=== PATIENT | male | born 1940 | race Caucasian/White ===

== ENCOUNTER 2016-10-05 21:44 | Inpatient (IN) | payer OTHER ==
[~2016-10-05] VITALS: Ht 180.3 cm; Wt 86.2 kg
[2016-10-05] MEDS ORDERED: IPRATRPIUM/ALBUTEROL 0.5/2.5MG 3 ML NEBU. NEB ONE (22:15)
[2016-10-05 22:22] LABS: BASO # 0.1 x10^3/uL (0.0-0.2); BASO % 0 % (0-3); EOS % 3 % (0-3); HEMATOCRIT 40.7 % (39.0-53.0); HEMOGLOBIN 13.3 g/dL (13.0-17.5); LYMPH % 6 % (24-48); MEAN CORPUSCULAR HEMOGLOBIN 30 pg (25-35); MEAN CORPUSCULAR HGB CONC 33 g/dL (31-37); MEAN CORPUSCULAR VOLUME 93 fL (79-100); MONO % 12 % (0-9); NEUT % 78 % (31-73); PLATELET COUNT 195 x10^3/uL (140-400); RED CELL DISTRIBUTION WIDTH 14.1 % (11.5-14.5); WHITE BLOOD COUNT 16.3 x10^3/uL (4.0-11.0)
[2016-10-05 22:38] LABS: CALCIUM 8.9 mg/dL (8.5-10.1); CREATININE 0.7 mg/dL (0.7-1.3); GFR 109.9; POTASSIUM 4.2 mmol/L (3.5-5.1)
[2016-10-05 22:39] LABS: PCO2 ABG 46 mmHg (35-46); PH ABG 7.41 (7.35-7.45)
[2016-10-05 22:40] LABS: FIO2 ABG 60; HCO3 ABG 28 mmol/L (21-28); PO2 ABG 95 mmHg (65-108); SAT O2 ABG 97 % (92-99)
[2016-10-05 22:43] LABS: BILIRUBIN,URINE NEGATIVE (NEG); GLUCOSE,URINE NEGATIVE (NEG); NITRITE,URINE NEGATIVE (NEG); PH,URINE 7.5; PROTEIN,URINE NEGATIVE (NEG-TRACE)
[2016-10-05 22:44] LABS: ALBUMIN 2.4 g/dL (3.4-5.0); ALBUMIN/GLOBULIN RATIO 0.6 (1.0-1.7); TOTAL BILIRUBIN 0.7 mg/dL (0.2-1.0); TOTAL PROTEIN 6.6 g/dL (6.4-8.2)
[2016-10-05 22:47] LABS: RBC,URINE 20-40 /HPF (0-2); WBC,URINE TNTC /HPF (0-4)
[2016-10-05 22:48] LABS: BACTERIA,URINE MODERATE /HPF (0-FEW); YEAST,URINE PRESENT /HPF
[2016-10-05 22:51] LABS: % EOS 3 % (0-5); PLT ESTIMATE ADEQUATE (ADEQUATE); TOXIC GRANULATION SLIGHT
[2016-10-05] MEDS ORDERED: ONDANSETRON PF 4 MG/2 ML VIAL. IV PRN (23:00)
[2016-10-05] MEDS ORDERED: CEFTRIAXONE 1GM IVPB FOR OMNI 50 ML IV ONE (23:30)
[2016-10-06] MEDS ORDERED: VANCOMYCIN 2 GM in IV NORMAL SALINE 500ML BAG 500 ML IV ONE ×2
[2016-10-06 00:01] LABS: OBC FLU VALID
--- NOTE | 2016-10-06 00:22 | ACF ---
Admission Forms Criteria RESPIRATORY FAILURE [facility] Clinical Indications for Admission to Inpatient Care (Place 'X' for any and all applicable criteria): Hospital admission is needed for appropriate care of the patient because of acute respiratory failure or insufficiency as indicated by ANY ONE of the following(1)(2)(3)(4)(5)(6)(7)(8): [X]I. Mechanical ventilation needed (acute invasive or noninvasive) [ ]II. Severe ventilation deficit as indicated by ANY ONE of the following (9) [ ]a) Respiratory acidosis (pH less than 7.32 and partial pressure of carbon dioxide greater than 40 mm Hg (5.3 kPa)) [ ]b) Partial pressure of carbon dioxide greater than 44 mm Hg (5.9 kPa ) (new) [ ]c) Airflow measurements less than 25% of predicted (eg, peak expiratory flow rate less than 100 L/minute) [ ]d) Forced vital capacity less than 15 mL/kg of ideal body weight, or 50% decrease in vital capacity from baseline [ ]III. Noncardiac pulmonary edema not resolving with rapid emergency treatment (8) [ ]IV. Severe respiratory distress as indicated by ANY ONE of the following: [ ]a) Severe tachypnea (respiratory rate greater than 30, greater than 45 for 6-month-old, greater than 60 for ) [ ]b) Severe hypoxemia (partial pressure of oxygen less than 50 mm Hg ( 6.7 kPa) on greater than 50% oxygen or partial pressure of oxygen to FIO2 ratio less than 200) [ ]c) Mental status deterioration from respiratory disease [ ]V. Airway obstruction or inadequate protection [A](10)(11) The original [employer] content created by [employer] has been revised. The portions of the content which have been revised are identified through the use of italic text or in bold, and [employer] has neither reviewed nor approved the modified material. All other unmodified content is copyright [employer]. Please see references footnoted in the original [employer] edition 2016 Admission Criteria Met?: Yes EDGARDO JIM Oct 06, 2016 00:22
--- NOTE | 2016-10-06 00:39 | PHYS DOC ---
Past Medical History Past Medical History: CAD, CHF, High Cholesterol, Heart Disease, Hypertension, Lung Disease, Pneumonia, Other Additional Past Medical Histor: WEAKNESS, COGNITIVE COMMUNICATION DEFICIT Past Surgical History: Other Additional Past Surgical Histo: PEG TUBE Alcohol Use: None Drug Use: None Adult General Chief Complaint Chief Complaint: ALTERED MENTAL STATUS HPI HPI 76-year-old male presents with some altered mental status and difficulty breathing that his assisted living facility. Patient is apparently being treated for an ongoing pneumonia and has had several falls over the weekend. Daily today he became short of air satting in the 80s on room air per EMS. EMS put the patient on a nonrebreather with improvement of his oxygen saturations to the upper 90s. Upon arrival patient is slightly tachypneic in mild distress. He is unable to provide any adequate history. Patient apparently is normally verbal and alert and oriented x 2. Review of Systems Review of Systems 10 point review of systems is unable to be obtained secondary to the patient's underlying mental status Current Medications Current Medications Current Medications Medications (Trade) Dose Ordered Sig/Asael Start Time Stop Time Status Last Admin Dose Admin Albuterol/ Ipratropium (Duoneb) 3 ml 1X ONCE 10/05/16 22:15 10/05/16 22:50 DC 10/05/16 22:21 3 ML Ondansetron HCl 4 mg 4 mg PRN Q8HRS PRN 10/05/16 23:00 10/06/16 22:59 Sodium Chloride (Iv Sodium Chloride 0.9% 1000ml Bag) 1,000 ml @ 100 mls/hr Q10H 10/05/16 22:59 10/06/16 22:58 10/06/16 01:04 100 MLS/HR Vancomycin HCl (Vanco Per Pharmacy) 1 each PRN DAILY PRN 10/05/16 23:00 10/06/16 02:11 1 EACH Allergies Allergies Allergies Coded Allergies Type Severity Reaction Last Updated Verified allopurinol Allergy Intermediate 10/05/16 Yes colchicine Allergy Intermediate 10/05/16 Yes Physical Exam Physical Exam Constitutional: Well developed, well nourished, no acute distress, non-toxic appearance. [] HENT: Normocephalic, atraumatic, bilateral external ears normal, oropharynx moist, no oral exudates, nose normal. [] Eyes: PERRLA, EOMI, conjunctiva normal, no discharge. [] Neck: Normal range of motion, no tenderness, supple, no stridor. [] Cardiovascular:Heart rate regular rhythm, no murmur [] Lungs & Thorax: Bilateral breath sounds clear to auscultation [] Abdomen: Bowel sounds normal, soft, no tenderness, no masses, no pulsatile masses. [] Skin: Warm, dry, no erythema, no rash. [] Back: No tenderness, no CVA tenderness. [] Extremities: No tenderness, no cyanosis, no clubbing, ROM intact, no edema. [] Neurologic: Alert and oriented X 3, normal motor function, normal sensory function, no focal deficits noted. [] Psychologic: Affect normal, judgement normal, mood normal. [] Current Patient Data Vital Signs Vital Signs Date Time Temp Pulse Resp B/P Pulse Ox O2 Delivery O2 Flow Rate FiO2 10/05/16 22:50 19 136/68 97 BiPAP/CPAP 10/05/16 22:35 88 10/05/16 21:50 99.5 15 99.5 Lab Values Laboratory Tests Test 10/05/16 22:08 10/05/16 22:30 White Blood Count 16.3x10^3/uL (4.0-11.0) H Red Blood Count 4.40x10^6/uL (4.30-5.70) Hemoglobin 13.3g/dL (13.0-17.5) Hematocrit 40.7% (39.0-53.0) Mean Corpuscular Volume 93fL (79-100) Mean Corpuscular Hemoglobin 30pg (25-35) Mean Corpuscular Hemoglobin Concent 33g/dL (31-37) Red Cell Distribution Width 14.1% (11.5-14.5) Platelet Count 195x10^3/uL (140-400) Neutrophils (%) (Auto) 78% (31-73) H Lymphocytes (%) (Auto) 6% (24-48) L Monocytes (%) (Auto) 12% (0-9) H Eosinophils (%) (Auto) 3% (0-3) Basophils (%) (Auto) 0% (0-3) Neutrophils # (Auto) 12.7x10^3uL (1.8-7.7) H Lymphocytes # (Auto) 1.0x10^3/uL (1.0-4.8) Monocytes # (Auto) 2.0x10^3/uL (0.0-1.1) H Eosinophils # (Auto) 0.5x10^3/uL (0.0-0.7) Basophils # (Auto) 0.1x10^3/uL (0.0-0.2) Segmented Neutrophils % 69% (35-66) H Band Neutrophils % 6% (0-9) Lymphocytes % 6% (24-48) L Monocytes % 16% (0-10) H Eosinophils % 3% (0-5) Toxic Granulation Slight Platelet Estimate Adequate (ADEQUATE) Sodium Level 133mmol/L (136-145) L Potassium Level 4.2mmol/L (3.5-5.1) Chloride Level 93mmol/L (98-107) L Carbon Dioxide Level 35mmol/L (21-32) H Anion Gap 5 (6-14) L Blood Urea Nitrogen 12mg/dL (8-26) Creatinine 0.7mg/dL (0.7-1.3) Estimated GFR (Cockcroft-Gault) 109.9 BUN/Creatinine Ratio 17 (6-20) Glucose Level 108mg/dL (70-99) H Lactic Acid Level 0.8mmol/L (0.4-2.0) Calcium Level 8.9mg/dL (8.5-10.1) Total Bilirubin 0.7mg/dL (0.2-1.0) Aspartate Amino Transferase (AST) 27U/L (15-37) Alanine Aminotransferase (ALT) 20U/L (16-63) Alkaline Phosphatase 70U/L (46-116) Troponin I Quantitative < 0.015ng/mL (0.000-0.055) Total Protein 6.6g/dL (6.4-8.2) Albumin 2.4g/dL (3.4-5.0) L Albumin/Globulin Ratio 0.6 (1.0-1.7) L Urine Collection Type Unknown Urine Color Yellow Urine Clarity Cloudy Urine pH 7.5 Urine Specific [place] 1.015 Urine Protein Negativemg/dL (NEG-TRACE) Urine Glucose (UA) Negativemg/dL (NEG) Urine Ketones (Stick) Negativemg/dL (NEG) Urine Blood Moderate (NEG) Urine Nitrite Negative (NEG) Urine Bilirubin Negative (NEG) Urine Urobilinogen Dipstick 1.0mg/dL (0.2 mg/dL) Urine Leukocyte Esterase Moderate (NEG) Urine RBC 20-40/HPF (0-2) Urine WBC Tntc/HPF (0-4) Urine Squamous Epithelial Cells None/LPF Urine Amorphous Sediment Present/HPF Urine Bacteria Moderate/HPF (0-FEW) Urine Mucus Mod/LPF Urine Yeast Present/HPF O2 Saturation 97% (92-99) Arterial Blood pH 7.41 (7.35-7.45) Arterial Blood pCO2 at Patient Temp 46mmHg (35-46) Arterial Blood pO2 at Patient Temp 95mmHg (65-108) Arterial Blood HCO3 28mmol/L (21-28) Arterial Blood Base Excess 3mmol/L (-3-3) FiO2 60 Laboratory Tests 10/05/16 22:08 Laboratory Tests 10/05/16 22:08 EKG EKG EKG as interpreted by me shows a sinus tachycardia with a rate of 101 bpm. There are occasional PVCs but no acute ischemic findings are seen. Radiology/Procedures Radiology/Procedures Portable one view of the chest demonstrates left sided effusion and infiltrate with no obvious costophrenic angle on the left. This is c/w with ongoing pneumonia. Course & Med Decision Making Course & Med Decision Making Pertinent Labs and Imaging studies reviewed. (See chart for details) 76-year-old male with some altered mental status and blood work that shows an elevated white count but a normal ABG has a chest film that demonstrates a left- sided pneumonia which would be hospital acquired. For this, doses of Rocephin, Levaquin, Vancomycin were given. Cultures and lactate were obtained prior to antibiotic administration. A urinalysis does demonstrate signs of infection as well. Patient was placed on BiPAP therapy immediately upon arrival and will be continued on BiPAP on the medical floor. I discussed the need to admit the patient with the hospitalist, Dr. Neville, who agreed to accept the patient for further evaluation and treatment for HCAP and AMS. Dragon Disclaimer Dragon Disclaimer This electronic medical record was generated, in whole or in part, using a voice recognition dictation system. Departure Departure Impression: Primary Impression: Hospital acquired PNA Additional Impression: Altered mental status Disposition: 09 ADMITTED INPATIENT Admitting Physician: Jose Neville Condition: STABLE Referrals: SANDRITA RING MD (PCP) Problem Qualifiers MICHELLE LICEA DO Oct 06, 2016 00:39
[2016-10-06] MEDS: IV NORMAL SALINE 1000ML BAG 1,000 ML IV SCH ×3 (01:04→18:59)
[2016-10-06] MEDS: VANCOMYCIN PER PHARMACY MC PRN ×2 (02:11→15:20)
[2016-10-06 02:19] VITALS: BP 117/65
[2016-10-06] MEDS ORDERED: OXYC10TA PO (02:32)
[2016-10-06] MEDS ORDERED: TRAZ50TA15 PO (02:32)
[2016-10-06] MEDS ORDERED: ASPI-482 PO (02:32)
[2016-10-06] MEDS ORDERED: GUAI600T38 PO (02:32)
[2016-10-06] MEDS ORDERED: MAGN400O4 PO (02:32)
[2016-10-06] MEDS ORDERED: SIMV20TA3 PO (02:32)
[2016-10-06] MEDS ORDERED: FURO40TA4 PO (02:32)
[2016-10-06] MEDS ORDERED: CARB15DR3 EACHEYE (02:32)
[2016-10-06] MEDS ORDERED: MELO-156 PO (02:32)
[2016-10-06] MEDS ORDERED: HYPR15DR5 OP (02:32)
[2016-10-06] MEDS ORDERED: TAMS0.4C2 PO (02:32)
[2016-10-06] MEDS ORDERED: VIT1TABL32 PO (02:32)
[2016-10-06] MEDS ORDERED: BISA10SU55 RC (02:32)
[2016-10-06] MEDS ORDERED: POTA20LI PEG (02:32)
[2016-10-06 04:20] LABS: BASO # 0.1 x10^3/uL (0.0-0.2); BASO % 0 % (0-3); EOS % 2 % (0-3); HEMATOCRIT 36.1 % (39.0-53.0); HEMOGLOBIN 11.9 g/dL (13.0-17.5); LYMPH # 0.9 x10^3/uL (1.0-4.8); LYMPH % 5 % (24-48); MEAN CORPUSCULAR HEMOGLOBIN 30 pg (25-35); MEAN CORPUSCULAR HGB CONC 33 g/dL (31-37); MEAN CORPUSCULAR VOLUME 91 fL (79-100); MONO % 13 % (0-9); NEUT % 80 % (31-73); PLATELET COUNT 175 x10^3/uL (140-400); RED BLOOD COUNT 3.95 x10^6/uL (4.30-5.70); RED CELL DISTRIBUTION WIDTH 14.4 % (11.5-14.5); WHITE BLOOD COUNT 17.5 x10^3/uL (4.0-11.0)
[2016-10-06 04:36] LABS: CALCIUM 8.5 mg/dL (8.5-10.1); CREATININE 0.6 mg/dL (0.7-1.3); GFR 131.3; POTASSIUM 4.1 mmol/L (3.5-5.1)
--- NOTE | 2016-10-06 06:31 | EKG ---
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
[2016-10-06 07:30] VITALS: BP 111/55
[2016-10-06] MEDS: IPRATRPIUM/ALBUTEROL 0.5/2.5MG 3 ML NEBU. NEB SCH ×4 (07:42→19:53)
--- NOTE | 2016-10-06 07:49 | RAD ---
EXAM: Chest one view. HISTORY: Pneumonia. COMPARISON: None. FINDINGS: A frontal view of the chest is obtained. There are changes of coronary artery bypass grafting. Consolidation in the left base is consistent with pneumonia. Mild opacities in the right base most likely indicate atelectasis. The inspiration is small. A small left pleural effusion cannot be excluded. There is no pneumothorax. The heart is mildly enlarged. There is bilateral rotator cuff arthropathy. A gastrostomy catheter may be partially visualized at the inferior margin of the field of view. IMPRESSION: 1. Left basilar pneumonia. Possible small left pleural effusion. Follow-up to resolution is recommended. 2. Mild cardiomegaly.
[2016-10-06] MEDS ORDERED: PIP/TAZO PER PHARMACY MC PRN (10:15)
[2016-10-06] MEDS ORDERED: BISACODYL 10 MG SUPP.RECT RC PRN (10:15)
[2016-10-06 10:35] VITALS: BP 117/44
[2016-10-06] MEDS ORDERED: PIPERACILLIN/TAZOBACTAM 3.375 GM in IV NORMAL SALINE 50ML 50 ML IV SCH (11:00)
[2016-10-06] MEDS ORDERED: ASPIRIN ENTERIC COATED 81 MG TABLET.DR. PO SCH (11:30)
[2016-10-06] MEDS: TAMSULOSIN 0.4 MG CAP.ER.24H. PO SCH (11:30)
[2016-10-06] MEDS ORDERED: GUAIFENESIN ER 600 MG TABLET.ER PO SCH (11:30)
[2016-10-06] MEDS: GUAIFENESIN 200 MG/10 ML LIQUID. PO SCH ×4 (11:31→21:06)
[2016-10-06] MEDS: MULTIVITAMIN EYE FORMULA CAPSULE. PO SCH (11:32)
[2016-10-06] MEDS: FUROSEMIDE 40 MG TABLET PO SCH (11:33)
[2016-10-06] MEDS: POTASSIUM CHLORIDE 20 MEQ/15 ML ORAL LIQUID. PEG SCH (11:36)
[2016-10-06] MEDS: ASPIRIN 81 MG TAB.CHEW PO SCH (11:43)
--- NOTE | 2016-10-06 11:44 | PDOC ---
Provider Note Provider Note dictated MARÍA LUNA MD Oct 06, 2016 11:43
[2016-10-06] MEDS ORDERED: FUROSEMIDE 40 MG/4 ML VIAL IVP ONE (12:00)
--- NOTE | 2016-10-06 12:08 | PDOC1 ---
History and Physical Date of Admission Date of Admission 10/05/16 Identification/Chief Complaint Chief Complaint desat Problems: Source Source: Caregiver, Chart review History of Present Illness History of Present Illness HPI HPI 76-year-old male presents with some altered mental status and difficulty breathing [facility]. i talked to his granddaughter for a long time, who lives with him and DPOA. pT WAS independent 2 months ago, [facility] , not better, then [place], for AMS, PNA, did LP, MRI brain, CT, EEG, but was told all neg. THen dced to resort last Wednesday. Pt could be agitated about his new sinclair ( denies urinary difficulty tho) and got haldol, also takes pain meds for "energy". He could be lethargic and sleeping for 2-3 days and then woke up talking close to normal baseline as per the grand daughter. Pt was found desat to 80s last night on RA, but she denies more cough or sob or fever in the past week. Has PEG since refuse to eat. pt is on bipap overnight, vitals ok, but not responding to me at all (rubbing his chest or calling his name). Past Medical History Past Medical History : CAD, CHF, High Cholesterol, Heart Disease, Hypertension, Lung Disease, Pneumonia, Other Additional Past Medical Histor: WEAKNESS, COGNITIVE COMMUNICATION DEFICIT Past Surgical History Past Surgical History PEG, cabg Family History Family History: Cancer Social History Smoke: Quit ALCOHOL: social Drugs: None Current Problem List Problem List Problems Medical Problems: (1) Altered mental status Status: Acute (2) Hospital acquired PNA Status: Acute Current Medications Current Medications Current Medications Medications (Trade) Dose Ordered Sig/Asael Start Time Stop Time Status Last Admin Dose Admin Albuterol/ Ipratropium (Duoneb) 3 ml 1X ONCE 10/05/16 22:15 10/05/16 22:50 DC 10/05/16 22:21 3 ML Albuterol/ Ipratropium 3 ml 3 ml RTQID 10/06/16 08:00 10/07/16 07:59 10/06/16 07:42 3 ML Artificial Tears (Artificial Tears) 1 drop PRN BID PRN 10/06/16 10:30 Aspirin (Children'S Aspirin) 81 mg [id number] 3/7/17 11:30 10/06/16 11:43 81 MG Aspirin (Ecotrin) 81 mg DAILY 10/06/16 11:30 10/06/16 11:30 DC Bisacodyl (Dulcolax Supp) 10 mg PRN DAILY PRN 10/06/16 10:15 Ceftriaxone Sodium 1 gm/ Sodium Chloride 50 ml @ 100 mls/hr Q24H 10/06/16 22:00 10/06/16 22:00 DC Ceftriaxone Sodium 50 ml @ 100 mls/hr 1X ONCE 10/05/16 23:30 10/05/16 23:59 DC 10/06/16 01:05 100 MLS/HR Furosemide (Lasix) 40 mg 1X ONCE 10/06/16 12:00 10/06/16 12:01 DC Guaifenesin (Mucinex) 600 mg BID 10/06/16 11:30 10/06/16 11:30 DC Guaifenesin (Robitussin) 200 mg QID 10/06/16 11:30 10/06/16 11:31 200 MG Levofloxacin/ Dextrose 150 ml @ 100 mls/hr 1X ONCE 10/05/16 23:30 10/06/16 00:59 DC 10/06/16 01:05 100 MLS/HR Multivitamins/ Minerals (Ocuvite Lutein) 1 cap DAILY 10/06/16 11:00 10/06/16 11:32 1 CAP Ondansetron HCl 4 mg 4 mg PRN Q8HRS PRN 10/05/16 23:00 10/06/16 22:59 Piperacillin Sod/ Tazobactam Sod (Zosyn Per Pharmacy) 1 each PRN DAILY PRN 10/06/16 10:15 Piperacillin Sod/ Tazobactam Sod/ Sodium Chloride (Zosyn/Iv Sodium Chloride 0.9% 50ml) 50 ml @ 100 mls/hr Q6HRS 10/06/16 11:00 10/06/16 11:56 100 MLS/HR Potassium Chloride (KCl Oral Soln) 10 meq DAILY 10/06/16 11:30 10/06/16 11:36 10 MEQ Simvastatin (Zocor) 20 mg QHS 10/06/16 21:00 Sodium Chloride (Iv Sodium Chloride 0.9% 1000ml Bag) 1,000 ml @ 100 mls/hr Q10H 10/05/16 22:59 10/06/16 22:58 10/06/16 01:04 100 MLS/HR Tamsulosin HCl (Flomax) 0.4 mg DAILY 10/06/16 11:30 Vancomycin HCl 1 each 1 each 1X ONCE 10/07/16 11:30 10/07/16 11:31 Vancomycin HCl 2 gm/Sodium Chloride 500 ml @ 250 mls/hr 1X ONCE 10/06/16 00:00 10/06/16 01:59 DC 10/05/16 23:26 250 MLS/HR Vancomycin HCl/ Sodium Chloride (Iv Sodium Chloride 0.9% 250ml) 250 ml @ 167 mls/hr Q12H 10/06/16 12:00 Allergies Allergies Allergies Coded Allergies Type Severity Reaction Last Updated Verified allopurinol Allergy Intermediate 10/05/16 Yes colchicine Allergy Intermediate 10/05/16 Yes ROS Review of System CONSTITUTIONAL: No fever or chills EYES: No recent changes SKIN: No rash or itching CARDIOVASCULAR: No chest pain, syncope, palpitations, or edema RESPIRATORY: No SOB or cough GASTROINTESTINAL: No nausea, vomiting or abdominal pain NEUROLOGICAL: No headaches or weakness ENDOCRINE: No cold or heat intolerance GENITOURINARY: No urgency or frequency of urination MUSCULOSKELETAL: No back pain or joint pain LYMPHATICS: No enlarged lymph nodes PSYCHIATRIC: No anxiety or depression Physical Exam Physical Exam GEN.: on bipap, not responding at all HEENT: Head is normocephalic, atraumatic NECK: Supple. LUNGS: bl diminished bs. HEART: RRR, S1, S2 present. Peripheral pulses intact ABDOMEN: Soft, nontender. Positive bowel sounds. EXTREMITIES: Without any cyanosis. NEUROLOGIC: Normal speech, normal tone PSYCHIATRIC: Normal affect, normal mood. SKIN: No ulcerations Vitals Vitals Vital Signs Date Time Temp Pulse Resp B/P Pulse Ox O2 Delivery O2 Flow Rate FiO2 10/06/16 10:35 96.6 89 18 117/44 95 BiPAP/CPAP 96.6 10/06/16 08:00 15.0 Labs Labs Laboratory Tests Test 10/05/16 22:08 10/05/16 22:30 10/05/16 23:28 10/06/16 03:00 White Blood Count 16.3x10^3/uL (4.0-11.0) 17.5x10^3/uL (4.0-11.0) Red Blood Count 4.40x10^6/uL (4.30-5.70) 3.95x10^6/uL (4.30-5.70) Hemoglobin 13.3g/dL (13.0-17.5) 11.9g/dL (13.0-17.5) Hematocrit 40.7% (39.0-53.0) 36.1% (39.0-53.0) Mean Corpuscular Volume 93fL (79-100) 91fL (79-100) Mean Corpuscular Hemoglobin 30pg (25-35) 30pg (25-35) Mean Corpuscular Hemoglobin Concent 33g/dL (31-37) 33g/dL (31-37) Red Cell Distribution Width 14.1% (11.5-14.5) 14.4% (11.5-14.5) Platelet Count 195x10^3/uL (140-400) 175x10^3/uL (140-400) Neutrophils (%) (Auto) 78% (31-73) 80% (31-73) Lymphocytes (%) (Auto) 6% (24-48) 5% (24-48) Monocytes (%) (Auto) 12% (0-9) 13% (0-9) Eosinophils (%) (Auto) 3% (0-3) 2% (0-3) Basophils (%) (Auto) 0% (0-3) 0% (0-3) Neutrophils # (Auto) 12.7x10^3uL (1.8-7.7) 13.9x10^3uL (1.8-7.7) Lymphocytes # (Auto) 1.0x10^3/uL (1.0-4.8) 0.9x10^3/uL (1.0-4.8) Monocytes # (Auto) 2.0x10^3/uL (0.0-1.1) 2.2x10^3/uL (0.0-1.1) Eosinophils # (Auto) 0.5x10^3/uL (0.0-0.7) 0.4x10^3/uL (0.0-0.7) Basophils # (Auto) 0.1x10^3/uL (0.0-0.2) 0.1x10^3/uL (0.0-0.2) Segmented Neutrophils % 69% (35-66) Band Neutrophils % 6% (0-9) Lymphocytes % 6% (24-48) Monocytes % 16% (0-10) Eosinophils % 3% (0-5) Toxic Granulation Slight Platelet Estimate Adequate (ADEQUATE) Sodium Level 133mmol/L (136-145) 131mmol/L (136-145) Potassium Level 4.2mmol/L (3.5-5.1) 4.1mmol/L (3.5-5.1) Chloride Level 93mmol/L (98-107) 95mmol/L (98-107) Carbon Dioxide Level 35mmol/L (21-32) 34mmol/L (21-32) Anion Gap 5 (6-14) 2 (6-14) Blood Urea Nitrogen 12mg/dL (8-26) 12mg/dL (8-26) Creatinine 0.7mg/dL (0.7-1.3) 0.6mg/dL (0.7-1.3) Estimated GFR (Cockcroft-Gault) 109.9 131.3 BUN/Creatinine Ratio 17 (6-20) Glucose Level 108mg/dL (70-99) 102mg/dL (70-99) Lactic Acid Level 0.8mmol/L (0.4-2.0) Calcium Level 8.9mg/dL (8.5-10.1) 8.5mg/dL (8.5-10.1) Total Bilirubin 0.7mg/dL (0.2-1.0) Aspartate Amino Transf (AST/SGOT) 27U/L (15-37) Alanine Aminotransferase (ALT/SGPT) 20U/L (16-63) Alkaline Phosphatase 70U/L (46-116) Troponin I Quantitative < 0.015ng/mL (0.000-0.055) Total Protein 6.6g/dL (6.4-8.2) Albumin 2.4g/dL (3.4-5.0) Albumin/Globulin Ratio 0.6 (1.0-1.7) Urine Collection Type Unknown Urine Color Yellow Urine Clarity Cloudy Urine pH 7.5 Urine Specific [place] 1.015 Urine Protein Negativemg/dL (NEG-TRACE) Urine Glucose (UA) Negativemg/dL (NEG) Urine Ketones (Stick) Negativemg/dL (NEG) Urine Blood Moderate (NEG) Urine Nitrite Negative (NEG) Urine Bilirubin Negative (NEG) Urine Urobilinogen Dipstick 1.0mg/dL (0.2 mg/dL) Urine Leukocyte Esterase Moderate (NEG) Urine RBC 20-40/HPF (0-2) Urine WBC Tntc/HPF (0-4) Urine Squamous Epithelial Cells None/LPF Urine Amorphous Sediment Present/HPF Urine Bacteria Moderate/HPF (0-FEW) Urine Mucus Mod/LPF Urine Yeast Present/HPF O2 Saturation 97% (92-99) Arterial Blood pH 7.41 (7.35-7.45) Arterial Blood pCO2 at Patient Temp 46mmHg (35-46) Arterial Blood pO2 at Patient Temp 95mmHg (65-108) Arterial Blood HCO3 28mmol/L (21-28) Arterial Blood Base Excess 3mmol/L (-3-3) FiO2 60 Influenza Type A Antigen Negative (NEGATIVE) Influenza Type B Antigen Negative (NEGATIVE) Laboratory Tests Test 10/05/16 22:08 10/05/16 22:30 10/05/16 23:28 10/06/16 03:00 White Blood Count 16.3x10^3/uL (4.0-11.0) 17.5x10^3/uL (4.0-11.0) Red Blood Count 4.40x10^6/uL (4.30-5.70) 3.95x10^6/uL (4.30-5.70) Hemoglobin 13.3g/dL (13.0-17.5) 11.9g/dL (13.0-17.5) Hematocrit 40.7% (39.0-53.0) 36.1% (39.0-53.0) Mean Corpuscular Volume 93fL (79-100) 91fL (79-100) Mean Corpuscular Hemoglobin 30pg (25-35) 30pg (25-35) Mean Corpuscular Hemoglobin Concent 33g/dL (31-37) 33g/dL (31-37) Red Cell Distribution Width 14.1% (11.5-14.5) 14.4% (11.5-14.5) Platelet Count 195x10^3/uL (140-400) 175x10^3/uL (140-400) Neutrophils (%) (Auto) 78% (31-73) 80% (31-73) Lymphocytes (%) (Auto) 6% (24-48) 5% (24-48) Monocytes (%) (Auto) 12% (0-9) 13% (0-9) Eosinophils (%) (Auto) 3% (0-3) 2% (0-3) Basophils (%) (Auto) 0% (0-3) 0% (0-3) Neutrophils # (Auto) 12.7x10^3uL (1.8-7.7) 13.9x10^3uL (1.8-7.7) Lymphocytes # (Auto) 1.0x10^3/uL (1.0-4.8) 0.9x10^3/uL (1.0-4.8) Monocytes # (Auto) 2.0x10^3/uL (0.0-1.1) 2.2x10^3/uL (0.0-1.1) Eosinophils # (Auto) 0.5x10^3/uL (0.0-0.7) 0.4x10^3/uL (0.0-0.7) Basophils # (Auto) 0.1x10^3/uL (0.0-0.2) 0.1x10^3/uL (0.0-0.2) Segmented Neutrophils % 69% (35-66) Band Neutrophils % 6% (0-9) Lymphocytes % 6% (24-48) Monocytes % 16% (0-10) Eosinophils % 3% (0-5) Toxic Granulation Slight Platelet Estimate Adequate (ADEQUATE) Sodium Level 133mmol/L (136-145) 131mmol/L (136-145) Potassium Level 4.2mmol/L (3.5-5.1) 4.1mmol/L (3.5-5.1) Chloride Level 93mmol/L (98-107) 95mmol/L (98-107) Carbon Dioxide Level 35mmol/L (21-32) 34mmol/L (21-32) Anion Gap 5 (6-14) 2 (6-14) Blood Urea Nitrogen 12mg/dL (8-26) 12mg/dL (8-26) Creatinine 0.7mg/dL (0.7-1.3) 0.6mg/dL (0.7-1.3) Estimated GFR (Cockcroft-Gault) 109.9 131.3 BUN/Creatinine Ratio 17 (6-20) Glucose Level 108mg/dL (70-99) 102mg/dL (70-99) Lactic Acid Level 0.8mmol/L (0.4-2.0) Calcium Level 8.9mg/dL (8.5-10.1) 8.5mg/dL (8.5-10.1) Total Bilirubin 0.7mg/dL (0.2-1.0) Aspartate Amino Transf (AST/SGOT) 27U/L (15-37) Alanine Aminotransferase (ALT/SGPT) 20U/L (16-63) Alkaline Phosphatase 70U/L (46-116) Troponin I Quantitative < 0.015ng/mL (0.000-0.055) Total Protein 6.6g/dL (6.4-8.2) Albumin 2.4g/dL (3.4-5.0) Albumin/Globulin Ratio 0.6 (1.0-1.7) Urine Collection Type Unknown Urine Color Yellow Urine Clarity Cloudy Urine pH 7.5 Urine Specific [place] 1.015 Urine Protein Negativemg/dL (NEG-TRACE) Urine Glucose (UA) Negativemg/dL (NEG) Urine Ketones (Stick) Negativemg/dL (NEG) Urine Blood Moderate (NEG) Urine Nitrite Negative (NEG) Urine Bilirubin Negative (NEG) Urine Urobilinogen Dipstick 1.0mg/dL (0.2 mg/dL) Urine Leukocyte Esterase Moderate (NEG) Urine RBC 20-40/HPF (0-2) Urine WBC Tntc/HPF (0-4) Urine Squamous Epithelial Cells None/LPF Urine Amorphous Sediment Present/HPF Urine Bacteria Moderate/HPF (0-FEW) Urine Mucus Mod/LPF Urine Yeast Present/HPF O2 Saturation 97% (92-99) Arterial Blood pH 7.41 (7.35-7.45) Arterial Blood pCO2 at Patient Temp 46mmHg (35-46) Arterial Blood pO2 at Patient Temp 95mmHg (65-108) Arterial Blood HCO3 28mmol/L (21-28) Arterial Blood Base Excess 3mmol/L (-3-3) FiO2 60 Influenza Type A Antigen Negative (NEGATIVE) Influenza Type B Antigen Negative (NEGATIVE) VTE Prophylaxis Ordered VTE Prophylaxis Devices: Yes VTE Pharmacological Prophylaxi: Yes Assessment/Plan Assessment/Plan 1. AMS, metabolic encephalopathy likely , 2/2 to 2 or sedative meds in rehab 2. acute resp failure with hypoxia, 2/2 HCAP? 3. sepsis with HCAP? 4. h/o CAD with CABG 5. CHF, ef 50% . 6 htn 7. hld 8 BPH sinclair 9. dysphasia with PEG 10. 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 recent hallucination plan: given pt was recently in another hosp for 3 weeks, will try to get records pulm, neuro, card consult 2. cont vanco, add zosyn for now 3. lasix iv x1 as per pulm cont home po lasix 4. hold trazodone, opoids for now taper bipap resume PEG feeding dvt ppx ptot labs tmr EDWARDO AMES MD Oct 06, 2016 12:07
[2016-10-06] MEDS ORDERED: ONDANSETRON PF 4 MG/2 ML VIAL. IV PRN (12:15)
--- NOTE | 2016-10-06 12:42 | CONS ---
DATE OF CONSULTATION: ATTENDING PHYSICIAN: Dr. Neville. REASON FOR CONSULTATION: Respiratory failure, possible pneumonia. HISTORY OF PRESENT ILLNESS: The patient is a 76-year-old male who has been at [facility] for a recent prolonged hospitalization. He was prior to that, he was at the [facility]. The patient has a history of coronary artery disease, hyperlipidemia, and abdominal aortic aneurysm. He has only minimal history of tobacco use. He quit 40 years ago. His granddaughter was at the bedside who gave much of the history. She says that he was treated with three broad spectrum antibiotics for pneumonia at [facility]. He was then transferred to [facility]. The patient's granddaughter said that they took his pulse ox on the right hand, which normally does not give a good signal and it was in the 80s; however, when they checked it on the left hand pulse ox showed 96% saturation. However, he was sent to [facility] for dyspnea and hypoxia. He was placed initially on nonrebreather mask with saturations in the upper 90s. His arterial blood gases obtained and was reviewed by me and it was obtained on 60% FiO2. It showed a pH of 7.41, pCO2 of 46 and a pO2 of 95. Currently, he is arousable to commands, but he is otherwise sleepy. His influenza screen was negative. I have reviewed the patient's chest x-ray, there was no old x-ray available for comparison. He has a left basilar volume loss, which could be related to pneumonia versus a possible left effusion. He has mild cardiomegaly. The granddaughter states that he had an echo recently at [facility] and was told that ____ much better than before. I do not have the details of which are available. PAST MEDICAL HISTORY: History of CAD, history of CHF, could be diastolic. Dyslipidemia, heart disease, hypertension, history of pneumonia. History of cognitive impairment. PAST SURGICAL HISTORY: PEG tube placement. ALLERGIES: ALLOPURINOL AND COLCHICINE. MEDICATIONS: Upon transfer were all reviewed including broad-spectrum antibiotic, vancomycin and Zosyn. REVIEW OF SYSTEMS: Unable to obtain from the patient. SOCIAL HISTORY: Quit tobacco 40 years ago. PHYSICAL EXAMINATION: VITAL SIGNS: His blood pressure 117/44, pulse ox 94-98% on 60% BiPAP. Afebrile. HEENT: Sclerae nonicteric. NECK: Supple. LUNGS: Diminished breath sounds. CARDIOVASCULAR: Regular rate. ABDOMEN: Soft and PEG in place. EXTREMITIES: With bilateral pitting edema. LABORATORY DATA: Reviewed. His white cell count 17.5, hemoglobin 11.9 and platelets are 175. BUN is 12, creatinine 0.6. Sodium 133. IMPRESSION: 1. Acute hypoxic respiratory failure, I suspect related to left basilar pneumonia; however, I cannot exclude the component of diastolic heart failure. The patient's granddaughter had said that he has had prolonged broad spectrum antibiotic course while at [facility]. I do not have old x-ray available for comparison. Normally, he does not use his oxygen. 2. Questionable mild chronic obstructive pulmonary disease. 3. Mild hyponatremia. Could be dilutional. 4. Abnormal chest x-ray with mild cardiomegaly and volume loss, left lower lobe. Possible left lower lobe pneumonia, cannot exclude the possibility of a small effusion related to mild congestive heart failure. 5. History of coronary artery disease. 6. History of chronic percutaneous endoscopic gastrostomy tube. He uses enteral nutrition as well as oral nutrition. According to daughter, he is a picky eater, so he does not meet his nutritional needs by oral intake only. RECOMMENDATIONS: 1. We will gradually wean the FiO2. 2. We will give one dose of IV Lasix. 3. Continue broad-spectrum antibiotics. 4. Follow chest x-ray. 5. Nebulizer treatments as scheduled. 6. We will obtain echo report from [facility]. 7. Discussed with the patient's granddaughter at the bedside and we will follow along with you. 8. d/w Dr Neville MARÍA LUNA MD DR: NICOLETTE/fabio JOB#: [id number] / [id number] Bony Garcia
--- NOTE | 2016-10-06 12:51 | PDOC2 ---
CARDIAC CONSULT DATE OF CONSULT Date of Consult DATE: 10/06/16 TIME: 12:48 REASON FOR CONSULT Reason for Consult: History of CHF REFERRING PHYSICIAN Referring Physician: Dr. Neville SOURCE Source: Chart review HISTORY OF PRESENT ILLNESS HISTORY OF PRESENT ILLNESS This is a 76 yo male who presented from assisted living facility secondary to altered mental status and shortness of breath. Patient poor historian, family not at bedside; HPI obtained from chart review. Patient had recent length hospitalization at [facility]; was treated for pneumonia. Was discharged to [facility] for rehab. Pulse oxygen saturation noted to be low; was transferred to [facility] for dyspnea and hypoxia. CXR notable for cardiomegaly and left PNA versus effusion. Patient with a history of CHF, which prompted this consult. Echocardiogram apparently conducted during hospitalization at [facility]. PAST MEDICAL HISTORY Cardiovascular: CAD, CHF, HTN, Hyperlipidemia Pulmonary: Pneumonia, Other (lung disease ) CENTRAL NERVOUS SYSTEM: Other (cognitive impairment ) GI: No pertinent hx Psych: Anxiety Musculoskeletal: Osteoarthritis Rheumatologic: No pertinent hx Infectious disease: No pertinent hx ENT: No pertinent hx Renal/: No pertinent hx Endocrine: No pertinent hx Dermatology: No pertinent hx PAST SURGICAL HISTORY Past Surgical History: Other (PEG placement ) FAMILY HISTORY Family History: Cancer SOCIAL HISTORY Smoke: Quit ALCOHOL: none Drugs: None Lives: with Family (presently at [facility] for rehab) CURRENT MEDICATIONS CURRENT MEDICATIONS Current Medications Medications (Trade) Dose Ordered Sig/Asael Route PRN Reason Start Time Stop Time Status Last Admin Dose Admin Albuterol/ Ipratropium 3 ml 3 ml 1X ONCE NEB 10/05/16 22:15 10/05/16 22:50 DC 10/05/16 22:21 Sodium Chloride (Iv Sodium Chloride 0.9% 1000ml Bag) 1,000 ml @ 100 mls/hr Q10H IV 10/05/16 22:59 10/06/16 22:58 10/06/16 08:59 Albuterol/ Ipratropium 3 ml 3 ml RTQID NEB 10/06/16 08:00 10/07/16 07:59 10/06/16 07:42 Levofloxacin/ Dextrose (LEVAQUIN 750mg PREMIX) 150 ml @ 100 mls/hr 1X ONCE IV 10/05/16 23:30 10/06/16 00:59 DC 10/06/16 01:05 Vancomycin HCl 1 each 1 each PRN DAILY PRN MC SEE COMMENTS 10/05/16 23:00 10/06/16 02:11 Ceftriaxone Sodium 50 ml @ 100 mls/hr 1X ONCE IV 10/05/16 23:30 10/05/16 23:59 DC 10/06/16 01:05 Vancomycin HCl 2 gm/Sodium Chloride 500 ml @ 250 mls/hr 1X ONCE IV 10/06/16 00:00 10/06/16 01:59 DC 10/05/16 23:26 Piperacillin Sod/ Tazobactam Sod/ Sodium Chloride (Zosyn/Iv Sodium Chloride 0.9% 50ml) 50 ml @ 100 mls/hr Q6HRS IV 10/06/16 11:00 10/06/16 11:56 Furosemide (Lasix) 40 mg DAILY PO 10/06/16 11:30 10/06/16 11:33 Potassium Chloride (KCl Oral Soln) 10 meq DAILY PEG 10/06/16 11:30 10/06/16 11:36 Multivitamins/ Minerals (Ocuvite Lutein) 1 cap DAILY PO 10/06/16 11:00 10/06/16 11:32 Aspirin (Children'S Aspirin) 81 mg DAILYWBKFT PO 10/06/16 11:30 10/06/16 11:43 Guaifenesin (Robitussin) 200 mg QID PO 10/06/16 11:30 10/06/16 11:31 Furosemide (Lasix) 40 mg 1X ONCE IVP 10/06/16 12:00 10/06/16 12:01 DC 10/06/16 12:01 ALLERGIES ALLERGIES: Coded Allergies: allopurinol (Verified Allergy, Intermediate, 10/05/16) colchicine (Verified Allergy, Intermediate, 10/05/16) ROS Review of System unobtainable PHYSICAL EXAM General: Alert, Cooperative, No acute distress, Other (oriented to person and place) HEENT: Atraumatic, Mucous membr. moist/pink Lungs: Other (diminished bases ) Heart: Regular rate, Normal S1, Normal S2, Other (2/6 systolic murmur ) Abdomen: Soft, Other (PEG tube in place) Extremities: Normal pulses, Other (1+ LE edema ) Skin: No breakdown, No significant lesion Neuro: Normal speech, Sensation intact Psych/Mental Status: Other (pleasant; intermittent confusion) MUSCULOSKELETAL: Osteoarthritic changes both hands VITALS VITALS Vital Signs Date Time Temp Pulse Resp B/P Pulse Ox O2 Delivery O2 Flow Rate FiO2 10/06/16 10:35 96.6 89 18 117/44 95 BiPAP/CPAP 96.6 10/06/16 08:00 15.0 LABS Lab: Laboratory Tests Test 10/05/16 22:08 10/05/16 22:30 10/05/16 23:28 10/06/16 03:00 White Blood Count 16.3x10^3/uL (4.0-11.0) 17.5x10^3/uL (4.0-11.0) Red Blood Count 4.40x10^6/uL (4.30-5.70) 3.95x10^6/uL (4.30-5.70) Hemoglobin 13.3g/dL (13.0-17.5) 11.9g/dL (13.0-17.5) Hematocrit 40.7% (39.0-53.0) 36.1% (39.0-53.0) Mean Corpuscular Volume 93fL (79-100) 91fL (79-100) Mean Corpuscular Hemoglobin 30pg (25-35) 30pg (25-35) Mean Corpuscular Hemoglobin Concent 33g/dL (31-37) 33g/dL (31-37) Red Cell Distribution Width 14.1% (11.5-14.5) 14.4% (11.5-14.5) Platelet Count 195x10^3/uL (140-400) 175x10^3/uL (140-400) Neutrophils (%) (Auto) 78% (31-73) 80% (31-73) Lymphocytes (%) (Auto) 6% (24-48) 5% (24-48) Monocytes (%) (Auto) 12% (0-9) 13% (0-9) Eosinophils (%) (Auto) 3% (0-3) 2% (0-3) Basophils (%) (Auto) 0% (0-3) 0% (0-3) Neutrophils # (Auto) 12.7x10^3uL (1.8-7.7) 13.9x10^3uL (1.8-7.7) Lymphocytes # (Auto) 1.0x10^3/uL (1.0-4.8) 0.9x10^3/uL (1.0-4.8) Monocytes # (Auto) 2.0x10^3/uL (0.0-1.1) 2.2x10^3/uL (0.0-1.1) Eosinophils # (Auto) 0.5x10^3/uL (0.0-0.7) 0.4x10^3/uL (0.0-0.7) Basophils # (Auto) 0.1x10^3/uL (0.0-0.2) 0.1x10^3/uL (0.0-0.2) Segmented Neutrophils % 69% (35-66) Band Neutrophils % 6% (0-9) Lymphocytes % 6% (24-48) Monocytes % 16% (0-10) Eosinophils % 3% (0-5) Toxic Granulation Slight Platelet Estimate Adequate (ADEQUATE) Sodium Level 133mmol/L (136-145) 131mmol/L (136-145) Potassium Level 4.2mmol/L (3.5-5.1) 4.1mmol/L (3.5-5.1) Chloride Level 93mmol/L (98-107) 95mmol/L (98-107) Carbon Dioxide Level 35mmol/L (21-32) 34mmol/L (21-32) Anion Gap 5 (6-14) 2 (6-14) Blood Urea Nitrogen 12mg/dL (8-26) 12mg/dL (8-26) Creatinine 0.7mg/dL (0.7-1.3) 0.6mg/dL (0.7-1.3) Estimated GFR (Cockcroft-Gault) 109.9 131.3 BUN/Creatinine Ratio 17 (6-20) Glucose Level 108mg/dL (70-99) 102mg/dL (70-99) Lactic Acid Level 0.8mmol/L (0.4-2.0) Calcium Level 8.9mg/dL (8.5-10.1) 8.5mg/dL (8.5-10.1) Total Bilirubin 0.7mg/dL (0.2-1.0) Aspartate Amino Transf (AST/SGOT) 27U/L (15-37) Alanine Aminotransferase (ALT/SGPT) 20U/L (16-63) Alkaline Phosphatase 70U/L (46-116) Troponin I Quantitative < 0.015ng/mL (0.000-0.055) Total Protein 6.6g/dL (6.4-8.2) Albumin 2.4g/dL (3.4-5.0) Albumin/Globulin Ratio 0.6 (1.0-1.7) Urine Collection Type Unknown Urine Color Yellow Urine Clarity Cloudy Urine pH 7.5 Urine Specific [place] 1.015 Urine Protein Negativemg/dL (NEG-TRACE) Urine Glucose (UA) Negativemg/dL (NEG) Urine Ketones (Stick) Negativemg/dL (NEG) Urine Blood Moderate (NEG) Urine Nitrite Negative (NEG) Urine Bilirubin Negative (NEG) Urine Urobilinogen Dipstick 1.0mg/dL (0.2 mg/dL) Urine Leukocyte Esterase Moderate (NEG) Urine RBC 20-40/HPF (0-2) Urine WBC Tntc/HPF (0-4) Urine Squamous Epithelial Cells None/LPF Urine Amorphous Sediment Present/HPF Urine Bacteria Moderate/HPF (0-FEW) Urine Mucus Mod/LPF Urine Yeast Present/HPF O2 Saturation 97% (92-99) Arterial Blood pH 7.41 (7.35-7.45) Arterial Blood pCO2 at Patient Temp 46mmHg (35-46) Arterial Blood pO2 at Patient Temp 95mmHg (65-108) Arterial Blood HCO3 28mmol/L (21-28) Arterial Blood Base Excess 3mmol/L (-3-3) FiO2 60 Influenza Type A Antigen Negative (NEGATIVE) Influenza Type B Antigen Negative (NEGATIVE) Creatine Kinase 37U/L (39-308) ASSESSMENT/PLAN ASSESSMENT/PLAN 1. Acute on chronic respiratory failure Multifactorial. possible PNA per pulm 2. Chronic CHF NT Pro BNP mildly elevated but based upon age adjustment, is insignificant. continue supportive care and routine oral diuresis. echo conducted recently at [facility]- will obtain records. Further recommendations pending review of records. 3. CAD stable. CP free secondary prevention obtain records 4. Hypertension well-controlled. Continue current therapy 5. Hyperlipidemia statin 6. Encephalopathy 7. Malnutrition sp PEG; on enteral and oral feeding 8. UTI management per PCP Problems: LOPEZ OTOOLE APRN Oct 06, 2016 12:51
--- NOTE | 2016-10-06 12:59 | RAD ---
CT scan of the head without contrast 10/06/2016 Clinical History: Mental status changes. Technique: Unenhanced, contiguous, 5 mm axial sections were obtained through the head. One or more of the following individualized dose reduction techniques were utilized for this study: 1. Automated exposure control. 2. Adjustment of the mA and/or kV according to patient size. 3. Use of iterative reconstruction technique. Findings: No previous studies are available for comparison. There is generalized parenchymal atrophy. Small scattered areas of decreased attenuation are seen within the periventricular and subcortical white matter of both cerebral hemispheres consistent with areas of small vessel ischemic disease. No acute parenchymal abnormality is seen. No extra-axial fluid collection is noted. No skull fracture is seen. Impression: No acute intracranial abnormality is seen.
[2016-10-06] MEDS: VANCOMYCIN 1.25 GM in IV NORMAL SALINE 250ML 250 ML IV SCH ×2 (13:53→21:06)
[2016-10-06] MEDS: ENOXAPARIN 40 MG/0.4 ML DISP.SYRIN. SQ SCH (13:54)
[2016-10-06] MEDS: NYSTATIN TOPICAL POWDER 15GM BOTTLE. TP SCH ×2 (14:30→21:07)
[2016-10-06 14:40] VITALS: BP 101/48
--- NOTE | 2016-10-06 14:55 | PDOC2 ---
NEUROLOGY CONSULT Date of Admission Date of Admission DATE: 10/06/16 TIME: 14:46 Reason for Consult Reason for Consult: IMPRESSION: Metabolic encephalopathy. Hypoxia event, SO2 80s% Respiratory distress/failure. Pneumonia, LL Tachycardia Leukocytosis Generalized weakness. CAD CHF HTN HLD RECOMMENDATIONS/PLAN: HCT performed, no acute findings. EEG Lab: see orders. Treat UTI Treat medical diseases. OT/PT Discussed with his daughter and grand-daughter at bedside. HISTORY OF THE PRESENT ILLNESS: 76-y-old male patient with above medical diseases developed symptoms of SOB, difficult breathing, altered mental status, and other medical symptoms. Neurology was called for consultation due to MS changes. No focalized motor or sensory deficits reported. PAST MEDICAL HISTORY: Please see above. PAST SURGERY HISTORY: PEG placement. ALLERGY: Reviewed. MEDICATIONS: Refer to [facility] FAMILY HISTORY: Non contributory. SOCIAL HISTORY: Lives at home. Denies current substances and illicit drug use. REVIEW OF SYSTEMS: Constitutional: No malnutrition, weight loss, cachexia. Head: No current traumatic brain or head injury. Skin: No edema, or rash. Ear: No infection, tinnitus. Eyes: No vision loss or color blindness. Nose: No bleeding or purulent discharges. Hearing: Hearing decrease. Neck: No injury. Cardiac: CAD, HTN, HLD. Pulmonary: No pneumonia, COPD. GI: No GI ulcer, GI bleeding, GERD. Urinary/genital: UTI. Endocrinologic: No cousin face, craniofacial dysmorphism, polydactyly Skeletomuscular: Generalized weakness. Neurological: see HP. Psychiatric: Denies drug use/abuse. Otherwise, not [id number] review of systems. PHYSICAL EXAMINATION: General appearance is in acute distress. HEENT: Normocephalic and nontraumatic. Eyes, nose, ears, and throat are unremarkable. Neck is supple. No lymphadenopathy. No crepitus. Cardiovascular: S1, S2, regular rate and rhythm. Pulmonary: Clear to auscultation bilaterally. Abdomen: Bowel sounds are positive. Extremities: No rash, lesions, or edema. No restriction of range of motion NEUROLOGICAL EXAMINATION: Sleepiness but arousable. Oriented to place and person but not accurate to time. PERRL. EOMI. CN: no focal findings. Muscle tone: within normal. Muscle strength: 4 DTR: 2- Plantar reflex: Flexor response bilaterally Gait: not examined in bed. Sensory exam: no abnormal findings. No acute cerebellar signs elicited. F-T-N test not performed.. Current Medications Current Medications Current Medications Albuterol/ Ipratropium (Duoneb) 3 ml 1X ONCE NEB Last administered on 22:21; Start 10/05/16 at 22:15; Stop 10/05/16 at 22:50; Status DC Ondansetron HCl 4 mg 4 mg PRN Q8HRS PRN IV NAUSEA/VOMITING; Start 10/05/16 at 23 :00; Stop 10/06/16 at 22:59 Sodium Chloride (Iv Sodium Chloride 0.9% 1000ml Bag) 1,000 ml @ 100 mls/hr Q10H IV Last administered on 10/06/16 08:59; Start 10/05/16 at 22:59; Stop at 22:58 Albuterol/ Ipratropium 3 ml 3 ml RTQID NEB Last administered on 10/06/16 13:08 ; Start 10/06/16 at 08:00; Stop 10/07/16 at 07:59 Ceftriaxone Sodium 1 gm/ Sodium Chloride 50 ml @ 100 mls/hr Q24H IV ; Start 10/06/16 at 22:00; Stop 10/06/16 at 22:00; Status DC Levofloxacin/ Dextrose (LEVAQUIN 750mg PREMIX) 150 ml @ 100 mls/hr 1X ONCE IV Last administered on 10/06/16 01:05; Start 10/05/16 at 23:30; Stop 10/06/16 at 00:59; Status DC Vancomycin HCl 1 each 1 each PRN DAILY PRN MC SEE COMMENTS Last administered on 10/06/16 02:11; Start 10/05/16 at 23:00 Ceftriaxone Sodium 50 ml @ 100 mls/hr 1X ONCE IV Last administered on 01:05; Start 10/05/16 at 23:30; Stop 10/05/16 at 23:59; Status DC Vancomycin HCl 2 gm/Sodium Chloride 500 ml @ 250 mls/hr 1X ONCE IV Last administered on 10/05/16 23:26; Start 10/06/16 at 00:00; Stop 10/06/16 at 01:59; Status DC Vancomycin HCl/ Sodium Chloride (Iv Sodium Chloride 0.9% 250ml) 250 ml @ 167 mls/hr Q12H IV Last administered on 10/06/16 13:53; Start 10/06/16 at 12:00 Vancomycin HCl 1 each 1 each 1X ONCE MC ; Start 10/07/16 at 11:30; Stop 10/07/16 at 11:31 Piperacillin Sod/ Tazobactam Sod/ Sodium Chloride (Zosyn/Iv Sodium Chloride 0.9 % 50ml) 50 ml @ 100 mls/hr Q6HRS IV Last administered on 10/06/16 11:56; Start 10/06/16 at 11:00 Piperacillin Sod/ Tazobactam Sod (Zosyn Per Pharmacy) 1 each PRN DAILY PRN MC SEE COMMENTS; Start 10/06/16 at 10:15 Aspirin (Ecotrin) 81 mg DAILY PO ; Start 10/06/16 at 11:30; Stop 10/06/16 at 11:30 ; Status DC Bisacodyl (Dulcolax Supp) 10 mg PRN DAILY PRN RC CONSTIPATION; Start 10/06/16 at 10:15 Furosemide (Lasix) 40 mg DAILY PO Last administered on 10/06/16 11:33; Start at 11:30 Guaifenesin (Mucinex) 600 mg BID PO ; Start 10/06/16 at 11:30; Stop 10/06/16 at 11 :30; Status DC Potassium Chloride (KCl Oral Soln) 10 meq DAILY PEG Last administered on 11:36; Start 10/06/16 at 11:30 Simvastatin (Zocor) 20 mg QHS PO ; Start 10/06/16 at 21:00 Tamsulosin HCl (Flomax) 0.4 mg DAILY PO ; Start 10/06/16 at 11:30 Multivitamins/ Minerals (Ocuvite Lutein) 1 cap DAILY PO Last administered on 11:32; Start 10/06/16 at 11:00 Artificial Tears (Artificial Tears) 1 drop PRN BID PRN OU DRY EYE; Start at 10:30 Aspirin (Children'S Aspirin) 81 mg DAILYWBKFT PO Last administered on 10/06/16 11:43; Start 10/06/16 at 11:30 Guaifenesin (Robitussin) 200 mg QID PO Last administered on 10/06/16 11:31; Start 10/06/16 at 11:30 Furosemide (Lasix) 40 mg 1X ONCE IVP Last administered on 10/06/16 12:01; Start 10/06/16 at 12:00; Stop 10/06/16 at 12:01; Status DC Acetaminophen (Tylenol) 650 mg PRN Q6HRS PRN PEG MILD PAIN / TEMP; Start at 12:15 Ondansetron HCl (Zofran) 4 mg PRN Q6HRS PRN IV NAUSEA/VOMITING; Start 10/06/16 at 12:15 Enoxaparin Sodium (Lovenox 40mg Syringe) 40 mg Q24H SQ Last administered on 10/06 13:54; Start 10/06/16 at 13:00 Nystatin (Nystop) 1 alejandro BID TP ; Start 10/06/16 at 14:30 Active Scripts Active Reported Isopto Tears (Hypromellose) 15 Ml Drops 15 Ml OP Oxycodone Hcl 10 Mg Tablet 1 Tab PO QID Ocuvite Tablet (Vit A,C & E/Lutein/Minerals) 1 Each Tablet 1 Each PO Dulcolax (Bisacodyl) 10 Mg Supp.rect 10 Mg RC PRN DAILY PRN Milk Of Magnesia (Magnesium Hydroxide) 400 Mg/5 Ml Oral.susp 400 Mg PO Simvastatin 20 Mg Tablet 1 Tab PO QHS Refresh Optive Eye Drops (Carboxymethylcellulos/Glycerin) 15 Ml Drops 1 Drop EACHEYE BID Tamsulosin Hcl 0.4 Mg Cap.er.24h 1 Cap PO DAILY Potassium Chloride Oral Liquid (Potassium Chloride) 20 Meq/15 Ml Liquid 10 Meq PEG DAILY Aspir 81 (Aspirin) 81 Mg Tablet.dr 1 Tab PO DAILY Furosemide 40 Mg Tablet 1 Tab PO DAILY Meloxicam 7.5 Mg Tablet 1 Tab PO DAILY Trazodone Hcl 50 Mg Tablet 1 Tab PO QHS Mucinex (Guaifenesin) 600 Mg Tablet.er 600 Mg PO Allergies Allergies: Coded Allergies: allopurinol (Verified Allergy, Intermediate, 10/05/16) colchicine (Verified Allergy, Intermediate, 10/05/16) Vitals VITALS Vital Signs Date Time Temp Pulse Resp B/P Pulse Ox O2 Delivery O2 Flow Rate FiO2 10/06/16 13:10 97 Simple Mask 15.0 10/06/16 10:35 96.6 89 18 117/44 96.6 Labs Labs Laboratory Tests Test 10/05/16 22:08 10/05/16 22:30 10/05/16 23:28 10/06/16 03:00 White Blood Count 16.3x10^3/uL (4.0-11.0) 17.5x10^3/uL (4.0-11.0) Red Blood Count 4.40x10^6/uL (4.30-5.70) 3.95x10^6/uL (4.30-5.70) Hemoglobin 13.3g/dL (13.0-17.5) 11.9g/dL (13.0-17.5) Hematocrit 40.7% (39.0-53.0) 36.1% (39.0-53.0) Mean Corpuscular Volume 93fL (79-100) 91fL (79-100) Mean Corpuscular Hemoglobin 30pg (25-35) 30pg (25-35) Mean Corpuscular Hemoglobin Concent 33g/dL (31-37) 33g/dL (31-37) Red Cell Distribution Width 14.1% (11.5-14.5) 14.4% (11.5-14.5) Platelet Count 195x10^3/uL (140-400) 175x10^3/uL (140-400) Neutrophils (%) (Auto) 78% (31-73) 80% (31-73) Lymphocytes (%) (Auto) 6% (24-48) 5% (24-48) Monocytes (%) (Auto) 12% (0-9) 13% (0-9) Eosinophils (%) (Auto) 3% (0-3) 2% (0-3) Basophils (%) (Auto) 0% (0-3) 0% (0-3) Neutrophils # (Auto) 12.7x10^3uL (1.8-7.7) 13.9x10^3uL (1.8-7.7) Lymphocytes # (Auto) 1.0x10^3/uL (1.0-4.8) 0.9x10^3/uL (1.0-4.8) Monocytes # (Auto) 2.0x10^3/uL (0.0-1.1) 2.2x10^3/uL (0.0-1.1) Eosinophils # (Auto) 0.5x10^3/uL (0.0-0.7) 0.4x10^3/uL (0.0-0.7) Basophils # (Auto) 0.1x10^3/uL (0.0-0.2) 0.1x10^3/uL (0.0-0.2) Segmented Neutrophils % 69% (35-66) Band Neutrophils % 6% (0-9) Lymphocytes % 6% (24-48) Monocytes % 16% (0-10) Eosinophils % 3% (0-5) Toxic Granulation Slight Platelet Estimate Adequate (ADEQUATE) Sodium Level 133mmol/L (136-145) 131mmol/L (136-145) Potassium Level 4.2mmol/L (3.5-5.1) 4.1mmol/L (3.5-5.1) Chloride Level 93mmol/L (98-107) 95mmol/L (98-107) Carbon Dioxide Level 35mmol/L (21-32) 34mmol/L (21-32) Anion Gap 5 (6-14) 2 (6-14) Blood Urea Nitrogen 12mg/dL (8-26) 12mg/dL (8-26) Creatinine 0.7mg/dL (0.7-1.3) 0.6mg/dL (0.7-1.3) Estimated GFR (Cockcroft-Gault) 109.9 131.3 BUN/Creatinine Ratio 17 (6-20) Glucose Level 108mg/dL (70-99) 102mg/dL (70-99) Lactic Acid Level 0.8mmol/L (0.4-2.0) Calcium Level 8.9mg/dL (8.5-10.1) 8.5mg/dL (8.5-10.1) Total Bilirubin 0.7mg/dL (0.2-1.0) Aspartate Amino Transf (AST/SGOT) 27U/L (15-37) Alanine Aminotransferase (ALT/SGPT) 20U/L (16-63) Alkaline Phosphatase 70U/L (46-116) Troponin I Quantitative < 0.015ng/mL (0.000-0.055) Total Protein 6.6g/dL (6.4-8.2) Albumin 2.4g/dL (3.4-5.0) Albumin/Globulin Ratio 0.6 (1.0-1.7) Urine Collection Type Unknown Urine Color Yellow Urine Clarity Cloudy Urine pH 7.5 Urine Specific [place] 1.015 Urine Protein Negativemg/dL (NEG-TRACE) Urine Glucose (UA) Negativemg/dL (NEG) Urine Ketones (Stick) Negativemg/dL (NEG) Urine Blood Moderate (NEG) Urine Nitrite Negative (NEG) Urine Bilirubin Negative (NEG) Urine Urobilinogen Dipstick 1.0mg/dL (0.2 mg/dL) Urine Leukocyte Esterase Moderate (NEG) Urine RBC 20-40/HPF (0-2) Urine WBC Tntc/HPF (0-4) Urine Squamous Epithelial Cells None/LPF Urine Amorphous Sediment Present/HPF Urine Bacteria Moderate/HPF (0-FEW) Urine Mucus Mod/LPF Urine Yeast Present/HPF O2 Saturation 97% (92-99) Arterial Blood pH 7.41 (7.35-7.45) Arterial Blood pCO2 at Patient Temp 46mmHg (35-46) Arterial Blood pO2 at Patient Temp 95mmHg (65-108) Arterial Blood HCO3 28mmol/L (21-28) Arterial Blood Base Excess 3mmol/L (-3-3) FiO2 60 Influenza Type A Antigen Negative (NEGATIVE) Influenza Type B Antigen Negative (NEGATIVE) Creatine Kinase 37U/L (39-308) [id number]-Our-[id number]-Type Natriuretic Peptide 850pg/mL (0-449) Vitamin B12 Level 795pg/mL (247-911) Thyroid Stimulating Hormone (TSH) 3.779uIU/mL (0.358-3.74) Laboratory Tests Test 10/05/16 22:08 10/05/16 22:30 10/05/16 23:28 10/06/16 03:00 White Blood Count 16.3x10^3/uL (4.0-11.0) 17.5x10^3/uL (4.0-11.0) Red Blood Count 4.40x10^6/uL (4.30-5.70) 3.95x10^6/uL (4.30-5.70) Hemoglobin 13.3g/dL (13.0-17.5) 11.9g/dL (13.0-17.5) Hematocrit 40.7% (39.0-53.0) 36.1% (39.0-53.0) Mean Corpuscular Volume 93fL (79-100) 91fL (79-100) Mean Corpuscular Hemoglobin 30pg (25-35) 30pg (25-35) Mean Corpuscular Hemoglobin Concent 33g/dL (31-37) 33g/dL (31-37) Red Cell Distribution Width 14.1% (11.5-14.5) 14.4% (11.5-14.5) Platelet Count 195x10^3/uL (140-400) 175x10^3/uL (140-400) Neutrophils (%) (Auto) 78% (31-73) 80% (31-73) Lymphocytes (%) (Auto) 6% (24-48) 5% (24-48) Monocytes (%) (Auto) 12% (0-9) 13% (0-9) Eosinophils (%) (Auto) 3% (0-3) 2% (0-3) Basophils (%) (Auto) 0% (0-3) 0% (0-3) Neutrophils # (Auto) 12.7x10^3uL (1.8-7.7) 13.9x10^3uL (1.8-7.7) Lymphocytes # (Auto) 1.0x10^3/uL (1.0-4.8) 0.9x10^3/uL (1.0-4.8) Monocytes # (Auto) 2.0x10^3/uL (0.0-1.1) 2.2x10^3/uL (0.0-1.1) Eosinophils # (Auto) 0.5x10^3/uL (0.0-0.7) 0.4x10^3/uL (0.0-0.7) Basophils # (Auto) 0.1x10^3/uL (0.0-0.2) 0.1x10^3/uL (0.0-0.2) Segmented Neutrophils % 69% (35-66) Band Neutrophils % 6% (0-9) Lymphocytes % 6% (24-48) Monocytes % 16% (0-10) Eosinophils % 3% (0-5) Toxic Granulation Slight Platelet Estimate Adequate (ADEQUATE) Sodium Level 133mmol/L (136-145) 131mmol/L (136-145) Potassium Level 4.2mmol/L (3.5-5.1) 4.1mmol/L (3.5-5.1) Chloride Level 93mmol/L (98-107) 95mmol/L (98-107) Carbon Dioxide Level 35mmol/L (21-32) 34mmol/L (21-32) Anion Gap 5 (6-14) 2 (6-14) Blood Urea Nitrogen 12mg/dL (8-26) 12mg/dL (8-26) Creatinine 0.7mg/dL (0.7-1.3) 0.6mg/dL (0.7-1.3) Estimated GFR (Cockcroft-Gault) 109.9 131.3 BUN/Creatinine Ratio 17 (6-20) Glucose Level 108mg/dL (70-99) 102mg/dL (70-99) Lactic Acid Level 0.8mmol/L (0.4-2.0) Calcium Level 8.9mg/dL (8.5-10.1) 8.5mg/dL (8.5-10.1) Total Bilirubin 0.7mg/dL (0.2-1.0) Aspartate Amino Transf (AST/SGOT) 27U/L (15-37) Alanine Aminotransferase (ALT/SGPT) 20U/L (16-63) Alkaline Phosphatase 70U/L (46-116) Troponin I Quantitative < 0.015ng/mL (0.000-0.055) Total Protein 6.6g/dL (6.4-8.2) Albumin 2.4g/dL (3.4-5.0) Albumin/Globulin Ratio 0.6 (1.0-1.7) Urine Collection Type Unknown Urine Color Yellow Urine Clarity Cloudy Urine pH 7.5 Urine Specific [place] 1.015 Urine Protein Negativemg/dL (NEG-TRACE) Urine Glucose (UA) Negativemg/dL (NEG) Urine Ketones (Stick) Negativemg/dL (NEG) Urine Blood Moderate (NEG) Urine Nitrite Negative (NEG) Urine Bilirubin Negative (NEG) Urine Urobilinogen Dipstick 1.0mg/dL (0.2 mg/dL) Urine Leukocyte Esterase Moderate (NEG) Urine RBC 20-40/HPF (0-2) Urine WBC Tntc/HPF (0-4) Urine Squamous Epithelial Cells None/LPF Urine Amorphous Sediment Present/HPF Urine Bacteria Moderate/HPF (0-FEW) Urine Mucus Mod/LPF Urine Yeast Present/HPF O2 Saturation 97% (92-99) Arterial Blood pH 7.41 (7.35-7.45) Arterial Blood pCO2 at Patient Temp 46mmHg (35-46) Arterial Blood pO2 at Patient Temp 95mmHg (65-108) Arterial Blood HCO3 28mmol/L (21-28) Arterial Blood Base Excess 3mmol/L (-3-3) FiO2 60 Influenza Type A Antigen Negative (NEGATIVE) Influenza Type B Antigen Negative (NEGATIVE) Creatine Kinase 37U/L (39-308) UU-Wsv-I-Type Natriuretic Peptide 850pg/mL (0-449) Vitamin B12 Level 795pg/mL (247-911) Thyroid Stimulating Hormone (TSH) 3.779uIU/mL (0.358-3.74) HUMA GODWIN MD Oct 06, 2016 14:55
[2016-10-06] MEDS: PIPERACILLIN/TAZOBACTAM 4.5 GM in IV NORMAL SALINE 100ML 100 ML IV SCH (17:45)
[2016-10-06] MEDS: ACETAMINOPHEN 650 MG/20.3 ML SOLUTION. PEG PRN (17:55)
[2016-10-06 19:00] VITALS: BP 93/42
[2016-10-06] MEDS: SIMVASTATIN 20 MG TABLET PO SCH (21:06)
[2016-10-06] MEDS ORDERED: CEFTRIAXONE SODIUM 1 GM in IV NORMAL SALINE 50ML 50 ML IV SCH (22:00)
[2016-10-06 23:00] VITALS: BP 102/39
[2016-10-07] MEDS: PIPERACILLIN/TAZOBACTAM 4.5 GM in IV NORMAL SALINE 100ML 100 ML IV SCH ×4 (00:20→18:25)
[2016-10-07 03:00] VITALS: BP 103/44
[2016-10-07 03:49] LABS: BASO # 0.1 x10^3/uL (0.0-0.2); BASO % 0 % (0-3); EOS % 3 % (0-3); HEMATOCRIT 34.2 % (39.0-53.0); HEMOGLOBIN 11.6 g/dL (13.0-17.5); LYMPH # 0.6 x10^3/uL (1.0-4.8); LYMPH % 4 % (24-48); MEAN CORPUSCULAR HEMOGLOBIN 31 pg (25-35); MEAN CORPUSCULAR HGB CONC 34 g/dL (31-37); MEAN CORPUSCULAR VOLUME 91 fL (79-100); MONO % 8 % (0-9); NEUT % 85 % (31-73); PLATELET COUNT 174 x10^3/uL (140-400); RED BLOOD COUNT 3.74 x10^6/uL (4.30-5.70); RED CELL DISTRIBUTION WIDTH 14.5 % (11.5-14.5); WHITE BLOOD COUNT 15.9 x10^3/uL (4.0-11.0)
[2016-10-07 03:59] LABS: CALCIUM 8.4 mg/dL (8.5-10.1); CREATININE 0.8 mg/dL (0.7-1.3); GFR 94.2; POTASSIUM 3.7 mmol/L (3.5-5.1)
[2016-10-07 07:35] VITALS: BP 113/48
[2016-10-07] MEDS: IPRATRPIUM/ALBUTEROL 0.5/2.5MG 3 ML NEBU. NEB SCH (07:47)
[2016-10-07] MEDS: MULTIVITAMIN EYE FORMULA CAPSULE. PO SCH (08:57)
[2016-10-07] MEDS: ASPIRIN 81 MG TAB.CHEW PO SCH (08:57)
[2016-10-07] MEDS: FUROSEMIDE 40 MG TABLET PO SCH (08:57)
[2016-10-07] MEDS: TAMSULOSIN 0.4 MG CAP.ER.24H. PO SCH (08:58)
[2016-10-07] MEDS: ACETAMINOPHEN 650 MG/20.3 ML SOLUTION. PEG PRN ×2 (08:58→20:51)
[2016-10-07] MEDS: POTASSIUM CHLORIDE 20 MEQ/15 ML ORAL LIQUID. PEG SCH (08:58)
[2016-10-07] MEDS: GUAIFENESIN 200 MG/10 ML LIQUID. PO SCH ×4 (08:58→20:51)
[2016-10-07] MEDS: NYSTATIN TOPICAL POWDER 15GM BOTTLE. TP SCH ×2 (08:59→21:00)
[2016-10-07 10:17] VITALS: BP 104/44
[2016-10-07] MEDS: MELOXICAM 7.5 MG TABLET PO SCH (10:21)
--- NOTE | 2016-10-07 11:07 | PDOC ---
CARDIO Progress Notes Date and Time Date of Service 10/07/16 Time of Evaluation 1035 Subjective Subjective: No Chest Pain, No shortness of breath, No Palpitations, Other (LLE pain) Vitals Vitals Vital Signs Date Time Temp Pulse Resp B/P Pulse Ox O2 Delivery O2 Flow Rate FiO2 10/07/16 08:00 Nasal Cannula 5.0 10/07/16 07:54 90 10/07/16 07:35 99.9 97 18 113/48 99.9 Weight Weight [ ] Input and Output Intake and Output Intake and Output 10/07/16 07:00 Intake Total 0 ml Output Total 5100 ml Balance -5100 ml Intake Oral 0 ml Output Urine Total 5100 ml Laboratory Labs Laboratory Tests Test 10/07/16 03:00 White Blood Count 15.9x10^3/uL (4.0-11.0) Red Blood Count 3.74x10^6/uL (4.30-5.70) Hemoglobin 11.6g/dL (13.0-17.5) Hematocrit 34.2% (39.0-53.0) Mean Corpuscular Volume 91fL (79-100) Mean Corpuscular Hemoglobin 31pg (25-35) Mean Corpuscular Hemoglobin Concent 34g/dL (31-37) Red Cell Distribution Width 14.5% (11.5-14.5) Platelet Count 174x10^3/uL (140-400) Neutrophils (%) (Auto) 85% (31-73) Lymphocytes (%) (Auto) 4% (24-48) Monocytes (%) (Auto) 8% (0-9) Eosinophils (%) (Auto) 3% (0-3) Basophils (%) (Auto) 0% (0-3) Neutrophils # (Auto) 13.4x10^3uL (1.8-7.7) Lymphocytes # (Auto) 0.6x10^3/uL (1.0-4.8) Monocytes # (Auto) 1.3x10^3/uL (0.0-1.1) Eosinophils # (Auto) 0.5x10^3/uL (0.0-0.7) Basophils # (Auto) 0.1x10^3/uL (0.0-0.2) Sodium Level 135mmol/L (136-145) Potassium Level 3.7mmol/L (3.5-5.1) Chloride Level 97mmol/L (98-107) Carbon Dioxide Level 38mmol/L (21-32) Anion Gap 0 (6-14) Blood Urea Nitrogen 17mg/dL (8-26) Creatinine 0.8mg/dL (0.7-1.3) Estimated GFR (Cockcroft-Gault) 94.2 Glucose Level 132mg/dL (70-99) Calcium Level 8.4mg/dL (8.5-10.1) Microbiology Micro Microbiology 10/05/16 Blood Culture - Preliminary, Resulted NO GROWTH AFTER 1 DAY Physical Exam HEENT: Neck Supple W Full Motion Chest: Symmetric LUNGS: Clear to Auscultation, Other (diminished bases ) Heart: S1S2, RRR, murmurs (2/6 systolic murmur ), other (tele SR) Abdomen: Soft N/T, Other (PEG tube in palce) Extremities: 2+ Dorsalis Pedis, No Edema, No Calf Tenderness Neurology: alert, oriented, follow commands Assessment Assessment 1. Acute on chronic respiratory failure Multifactorial. possible PNA per pulm 2. Chronic CHF EF 50% 06/2015 per chart review. clinically compensated continue routine oral diuresis as BP allows recent echo report not received- to resend for records. Further recommendations pending review of records. 3. CAD s/p remote CABG [facility] stable. CP free secondary prevention as able. obtain records 4. Hypertension low-normotensive no BB or VILLA with hypotension 5. Hyperlipidemia statin 6. Encephalopathy 7. Malnutrition s/p PEG; on enteral and oral feeding 8. UTI management per PCP 9. Hyponatremia improved; NA 135 LOPEZ OTOOLE APRN Oct 07, 2016 11:07
[2016-10-07] MEDS ORDERED: FUROSEMIDE 20 MG/2 ML VIAL IVP ONE (12:00)
--- NOTE | 2016-10-07 12:00 | PDOC ---
PULMONARY PROGRESS NOTES Subjective FEELS BETTER AWAKE, OFF BIPAP Vitals Vital Signs Date Time Temp Pulse Resp B/P Pulse Ox O2 Delivery O2 Flow Rate FiO2 10/07/16 10:17 98.2 99 18 104/44 90 Nasal Cannula 5.0 98.2 General: Alert, No acute distress Lungs: Other (decrease bs) Cardiovascular: S1 Abdomen: Soft Neuro Exam: Alert Extremities: Other (1+edema) Labs Laboratory Tests Test 10/05/16 22:08 10/05/16 22:30 10/05/16 23:28 10/06/16 01:00 White Blood Count 16.3x10^3/uL (4.0-11.0) Red Blood Count 4.40x10^6/uL (4.30-5.70) Hemoglobin 13.3g/dL (13.0-17.5) Hematocrit 40.7% (39.0-53.0) Mean Corpuscular Volume 93fL (79-100) Mean Corpuscular Hemoglobin 30pg (25-35) Mean Corpuscular Hemoglobin Concent 33g/dL (31-37) Red Cell Distribution Width 14.1% (11.5-14.5) Platelet Count 195x10^3/uL (140-400) Neutrophils (%) (Auto) 78% (31-73) Lymphocytes (%) (Auto) 6% (24-48) Monocytes (%) (Auto) 12% (0-9) Eosinophils (%) (Auto) 3% (0-3) Basophils (%) (Auto) 0% (0-3) Neutrophils # (Auto) 12.7x10^3uL (1.8-7.7) Lymphocytes # (Auto) 1.0x10^3/uL (1.0-4.8) Monocytes # (Auto) 2.0x10^3/uL (0.0-1.1) Eosinophils # (Auto) 0.5x10^3/uL (0.0-0.7) Basophils # (Auto) 0.1x10^3/uL (0.0-0.2) Segmented Neutrophils % 69% (35-66) Band Neutrophils % 6% (0-9) Lymphocytes % 6% (24-48) Monocytes % 16% (0-10) Eosinophils % 3% (0-5) Toxic Granulation Slight Platelet Estimate Adequate (ADEQUATE) Sodium Level 133mmol/L (136-145) Potassium Level 4.2mmol/L (3.5-5.1) Chloride Level 93mmol/L (98-107) Carbon Dioxide Level 35mmol/L (21-32) Anion Gap 5 (6-14) Blood Urea Nitrogen 12mg/dL (8-26) Creatinine 0.7mg/dL (0.7-1.3) Estimated GFR (Cockcroft-Gault) 109.9 BUN/Creatinine Ratio 17 (6-20) Glucose Level 108mg/dL (70-99) Lactic Acid Level 0.8mmol/L (0.4-2.0) Calcium Level 8.9mg/dL (8.5-10.1) Total Bilirubin 0.7mg/dL (0.2-1.0) Aspartate Amino Transf (AST/SGOT) 27U/L (15-37) Alanine Aminotransferase (ALT/SGPT) 20U/L (16-63) Alkaline Phosphatase 70U/L (46-116) Troponin I Quantitative < 0.015ng/mL (0.000-0.055) Total Protein 6.6g/dL (6.4-8.2) Albumin 2.4g/dL (3.4-5.0) Albumin/Globulin Ratio 0.6 (1.0-1.7) Urine Collection Type Unknown Urine Color Yellow Urine Clarity Cloudy Urine pH 7.5 Urine Specific [place] 1.015 Urine Protein Negativemg/dL (NEG-TRACE) Urine Glucose (UA) Negativemg/dL (NEG) Urine Ketones (Stick) Negativemg/dL (NEG) Urine Blood Moderate (NEG) Urine Nitrite Negative (NEG) Urine Bilirubin Negative (NEG) Urine Urobilinogen Dipstick 1.0mg/dL (0.2 mg/dL) Urine Leukocyte Esterase Moderate (NEG) Urine RBC 20-40/HPF (0-2) Urine WBC Tntc/HPF (0-4) Urine Squamous Epithelial Cells None/LPF Urine Amorphous Sediment Present/HPF Urine Bacteria Moderate/HPF (0-FEW) Urine Mucus Mod/LPF Urine Yeast Present/HPF O2 Saturation 97% (92-99) Arterial Blood pH 7.41 (7.35-7.45) Arterial Blood pCO2 at Patient Temp 46mmHg (35-46) Arterial Blood pO2 at Patient Temp 95mmHg (65-108) Arterial Blood HCO3 28mmol/L (21-28) Arterial Blood Base Excess 3mmol/L (-3-3) FiO2 60 Influenza Type A Antigen Negative (NEGATIVE) Influenza Type B Antigen Negative (NEGATIVE) Nasal Screen MRSA (PCR) Negative (Negative) Test 10/06/16 03:00 10/07/16 03:00 White Blood Count 17.5x10^3/uL (4.0-11.0) 15.9x10^3/uL (4.0-11.0) Red Blood Count 3.95x10^6/uL (4.30-5.70) 3.74x10^6/uL (4.30-5.70) Hemoglobin 11.9g/dL (13.0-17.5) 11.6g/dL (13.0-17.5) Hematocrit 36.1% (39.0-53.0) 34.2% (39.0-53.0) Mean Corpuscular Volume 91fL (79-100) 91fL (79-100) Mean Corpuscular Hemoglobin 30pg (25-35) 31pg (25-35) Mean Corpuscular Hemoglobin Concent 33g/dL (31-37) 34g/dL (31-37) Red Cell Distribution Width 14.4% (11.5-14.5) 14.5% (11.5-14.5) Platelet Count 175x10^3/uL (140-400) 174x10^3/uL (140-400) Neutrophils (%) (Auto) 80% (31-73) 85% (31-73) Lymphocytes (%) (Auto) 5% (24-48) 4% (24-48) Monocytes (%) (Auto) 13% (0-9) 8% (0-9) Eosinophils (%) (Auto) 2% (0-3) 3% (0-3) Basophils (%) (Auto) 0% (0-3) 0% (0-3) Neutrophils # (Auto) 13.9x10^3uL (1.8-7.7) 13.4x10^3uL (1.8-7.7) Lymphocytes # (Auto) 0.9x10^3/uL (1.0-4.8) 0.6x10^3/uL (1.0-4.8) Monocytes # (Auto) 2.2x10^3/uL (0.0-1.1) 1.3x10^3/uL (0.0-1.1) Eosinophils # (Auto) 0.4x10^3/uL (0.0-0.7) 0.5x10^3/uL (0.0-0.7) Basophils # (Auto) 0.1x10^3/uL (0.0-0.2) 0.1x10^3/uL (0.0-0.2) Sodium Level 131mmol/L (136-145) 135mmol/L (136-145) Potassium Level 4.1mmol/L (3.5-5.1) 3.7mmol/L (3.5-5.1) Chloride Level 95mmol/L (98-107) 97mmol/L (98-107) Carbon Dioxide Level 34mmol/L (21-32) 38mmol/L (21-32) Anion Gap 2 (6-14) 0 (6-14) Blood Urea Nitrogen 12mg/dL (8-26) 17mg/dL (8-26) Creatinine 0.6mg/dL (0.7-1.3) 0.8mg/dL (0.7-1.3) Estimated GFR (Cockcroft-Gault) 131.3 94.2 Glucose Level 102mg/dL (70-99) 132mg/dL (70-99) Calcium Level 8.5mg/dL (8.5-10.1) 8.4mg/dL (8.5-10.1) Creatine Kinase 37U/L (39-308) W[place]-Lop-U-Type Natriuretic Peptide 850pg/mL (0-449) Vitamin B12 Level 795pg/mL (247-911) Thyroid Stimulating Hormone (TSH) 3.779uIU/mL (0.358-3.74) Laboratory Tests Test 10/07/16 03:00 White Blood Count 15.9x10^3/uL (4.0-11.0) Red Blood Count 3.74x10^6/uL (4.30-5.70) Hemoglobin 11.6g/dL (13.0-17.5) Hematocrit 34.2% (39.0-53.0) Mean Corpuscular Volume 91fL (79-100) Mean Corpuscular Hemoglobin 31pg (25-35) Mean Corpuscular Hemoglobin Concent 34g/dL (31-37) Red Cell Distribution Width 14.5% (11.5-14.5) Platelet Count 174x10^3/uL (140-400) Neutrophils (%) (Auto) 85% (31-73) Lymphocytes (%) (Auto) 4% (24-48) Monocytes (%) (Auto) 8% (0-9) Eosinophils (%) (Auto) 3% (0-3) Basophils (%) (Auto) 0% (0-3) Neutrophils # (Auto) 13.4x10^3uL (1.8-7.7) Lymphocytes # (Auto) 0.6x10^3/uL (1.0-4.8) Monocytes # (Auto) 1.3x10^3/uL (0.0-1.1) Eosinophils # (Auto) 0.5x10^3/uL (0.0-0.7) Basophils # (Auto) 0.1x10^3/uL (0.0-0.2) Sodium Level 135mmol/L (136-145) Potassium Level 3.7mmol/L (3.5-5.1) Chloride Level 97mmol/L (98-107) Carbon Dioxide Level 38mmol/L (21-32) Anion Gap 0 (6-14) Blood Urea Nitrogen 17mg/dL (8-26) Creatinine 0.8mg/dL (0.7-1.3) Estimated GFR (Cockcroft-Gault) 94.2 Glucose Level 132mg/dL (70-99) Calcium Level 8.4mg/dL (8.5-10.1) Medications Active Scripts Medications Dose Route/Sig Days Date Category Isopto Tears (Hypromellose) 15 Ml Drops 15 Ml OP 10/06/16 Reported Oxycodone Hcl 10 Mg Tablet 1 Tab PO QID 10/06/16 Reported Ocuvite Tablet (Vit A,C & E/Lutein/Minerals) 1 Each Tablet 1 Each PO 10/06/16 Reported Dulcolax (Bisacodyl) 10 Mg Supp.rect 10 Mg RC PRN DAILY PRN 10/06/16 Reported Milk Of Magnesia (Magnesium Hydroxide) 400 Mg/5 Ml Oral.susp 400 Mg PO 10/06/16 Reported Simvastatin 20 Mg Tablet 1 Tab PO QHS 10/06/16 Reported Refresh Optive Eye Drops (Carboxymethylcellulos/Glycerin) 15 Ml Drops 1 Drop EACHEYE BID 10/06/16 Reported Tamsulosin Hcl 0.4 Mg Cap.er.24h 1 Cap PO DAILY 10/06/16 Reported Potassium Chloride Oral Liquid (Potassium Chloride) 20 Meq/15 Ml Liquid 10 Meq PEG DAILY 10/06/16 Reported Aspir 81 (Aspirin) 81 Mg Tablet.dr 1 Tab PO DAILY 10/06/16 Reported Furosemide 40 Mg Tablet 1 Tab PO DAILY 10/06/16 Reported Meloxicam 7.5 Mg Tablet 1 Tab PO DAILY 10/06/16 Reported Trazodone Hcl 50 Mg Tablet 1 Tab PO QHS 10/06/16 Reported Mucinex (Guaifenesin) 600 Mg Tablet.er 600 Mg PO 10/06/16 Reported Impression . 1. Acute hypoxic respiratory failure, I suspect related to left basilar pneumonia; however, I cannot exclude the component of diastolic heart failure. The patient's granddaughter had said that he has had prolonged broad spectrum antibiotic course while at [facility]. I do not have old x-ray available for comparison. Normally, he does not use his oxygen. 2. Questionable mild chronic obstructive pulmonary disease. 3. Mild hyponatremia. Could be dilutional. 4. Abnormal chest x-ray with mild cardiomegaly and volume loss, left lower lobe. Possible left lower lobe pneumonia, cannot exclude the possibility of a small effusion related to mild congestive heart failure. 5. History of coronary artery disease. 6. History of chronic percutaneous endoscopic gastrostomy tube. He uses enteral nutrition as well as oral nutrition. According to daughter, he is a picky eater, so he does not meet his nutritional needs by oral intake only. Plan . 1. We will gradually wean the FiO2. 2. We will give one extra dose of IV Lasix again today 3. Continue broad-spectrum antibiotics. 4. Follow chest x-ray.in am 5. Nebulizer treatments as scheduled. 6. We will obtain echo report from [facility]. 7. Discussed with the patient's granddaughter at the bedside and we will follow along with you. 8. d/w MARÍA Wooten MD Oct 07, 2016 12:00
[2016-10-07] MEDS: VANCOMYCIN PER PHARMACY MC PRN ×3 (12:48→14:14)
[2016-10-07] MEDS: VANCOMYCIN 1.25 GM in IV NORMAL SALINE 250ML 250 ML IV SCH (13:39)
[2016-10-07] MEDS: ENOXAPARIN 40 MG/0.4 ML DISP.SYRIN. SQ SCH (13:40)
--- NOTE | 2016-10-07 14:00 | PDOC ---
PROGRESS NOTES Chief Complaint Chief Complaint 1. AMS, metabolic encephalopathy likely , 2/2 to 2 or sedative meds in rehab 2. acute resp failure with hypoxia, 2/2 HCAP? 3. sepsis with HCAP? 4. h/o CAD with CABG 5. CHF, ef 50% . 6 htn 7. hld 8 BPH sinclair 9. dysphasia with PEG 10. 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 recent hallucination 12. h/o CVA wo weakness 13. gout plan: given pt was recently in another hosp for 3 weeks , got records pulm, neuro, card consulted 2. cont vanco, add zosyn for now 3. lasix iv x1 as per pulm cont home po lasix 4. hold trazodone, add NSADIS for gout, low dose lortab bipap prn resume PEG feeding, get swallow eval dvt ppx ptot labs tmr head CT neg. EEG result pending check uric acid History of Present Illness History of Present Illness mild cough, off bipap waking up yesterday, baseline now, severe hearing problem, answer questions c/p chronic gout joint pain T 99.9 Vitals Vitals Vital Signs Date Time Temp Pulse Resp B/P Pulse Ox O2 Delivery O2 Flow Rate FiO2 10/07/16 10:17 98.2 99 18 104/44 90 Nasal Cannula 5.0 98.2 Physical Exam General: Alert, Cooperative, No acute distress, Other (oriented to person and place) Heart: Regular rate, Normal S1, Normal S2, Other (2/6 systolic murmur ) Lungs: Clear, Other ( ) Abdomen: Soft, Other (PEG tube in place) Extremities: Normal pulses, Other (1+ LE edema ) Skin: No breakdown, No significant lesion Labs LABS Laboratory Tests Test 10/07/16 03:00 10/07/16 11:15 White Blood Count 15.9x10^3/uL (4.0-11.0) Red Blood Count 3.74x10^6/uL (4.30-5.70) Hemoglobin 11.6g/dL (13.0-17.5) Hematocrit 34.2% (39.0-53.0) Mean Corpuscular Volume 91fL (79-100) Mean Corpuscular Hemoglobin 31pg (25-35) Mean Corpuscular Hemoglobin Concent 34g/dL (31-37) Red Cell Distribution Width 14.5% (11.5-14.5) Platelet Count 174x10^3/uL (140-400) Neutrophils (%) (Auto) 85% (31-73) Lymphocytes (%) (Auto) 4% (24-48) Monocytes (%) (Auto) 8% (0-9) Eosinophils (%) (Auto) 3% (0-3) Basophils (%) (Auto) 0% (0-3) Neutrophils # (Auto) 13.4x10^3uL (1.8-7.7) Lymphocytes # (Auto) 0.6x10^3/uL (1.0-4.8) Monocytes # (Auto) 1.3x10^3/uL (0.0-1.1) Eosinophils # (Auto) 0.5x10^3/uL (0.0-0.7) Basophils # (Auto) 0.1x10^3/uL (0.0-0.2) Sodium Level 135mmol/L (136-145) Potassium Level 3.7mmol/L (3.5-5.1) Chloride Level 97mmol/L (98-107) Carbon Dioxide Level 38mmol/L (21-32) Anion Gap 0 (6-14) Blood Urea Nitrogen 17mg/dL (8-26) Creatinine 0.8mg/dL (0.7-1.3) Estimated GFR (Cockcroft-Gault) 94.2 Glucose Level 132mg/dL (70-99) Calcium Level 8.4mg/dL (8.5-10.1) Magnesium Level 1.9mg/dL (1.8-2.4) Vancomycin Level Trough 15.3mcg/mL (10.0-20.0) Vancomycin Last Dose Date 10-07-16 Vancomycin Last Dose Time 0000 Review of Systems Review of Systems no chills, sob or chest pain Assessment and Plan Assessmemt and Plan Problems Medical Problems: (1) Altered mental status Status: Acute (2) Hospital acquired PNA Status: Acute Problems: Comment Review of Relevant I have reviewed the following items cassidy (where applicable) has been applied. Labs Laboratory Tests Test 10/05/16 22:08 10/05/16 22:30 10/05/16 23:28 10/06/16 01:00 White Blood Count 16.3x10^3/uL (4.0-11.0) Red Blood Count 4.40x10^6/uL (4.30-5.70) Hemoglobin 13.3g/dL (13.0-17.5) Hematocrit 40.7% (39.0-53.0) Mean Corpuscular Volume 93fL (79-100) Mean Corpuscular Hemoglobin 30pg (25-35) Mean Corpuscular Hemoglobin Concent 33g/dL (31-37) Red Cell Distribution Width 14.1% (11.5-14.5) Platelet Count 195x10^3/uL (140-400) Neutrophils (%) (Auto) 78% (31-73) Lymphocytes (%) (Auto) 6% (24-48) Monocytes (%) (Auto) 12% (0-9) Eosinophils (%) (Auto) 3% (0-3) Basophils (%) (Auto) 0% (0-3) Neutrophils # (Auto) 12.7x10^3uL (1.8-7.7) Lymphocytes # (Auto) 1.0x10^3/uL (1.0-4.8) Monocytes # (Auto) 2.0x10^3/uL (0.0-1.1) Eosinophils # (Auto) 0.5x10^3/uL (0.0-0.7) Basophils # (Auto) 0.1x10^3/uL (0.0-0.2) Segmented Neutrophils % 69% (35-66) Band Neutrophils % 6% (0-9) Lymphocytes % 6% (24-48) Monocytes % 16% (0-10) Eosinophils % 3% (0-5) Toxic Granulation Slight Platelet Estimate Adequate (ADEQUATE) Sodium Level 133mmol/L (136-145) Potassium Level 4.2mmol/L (3.5-5.1) Chloride Level 93mmol/L (98-107) Carbon Dioxide Level 35mmol/L (21-32) Anion Gap 5 (6-14) Blood Urea Nitrogen 12mg/dL (8-26) Creatinine 0.7mg/dL (0.7-1.3) Estimated GFR (Cockcroft-Gault) 109.9 BUN/Creatinine Ratio 17 (6-20) Glucose Level 108mg/dL (70-99) Lactic Acid Level 0.8mmol/L (0.4-2.0) Calcium Level 8.9mg/dL (8.5-10.1) Total Bilirubin 0.7mg/dL (0.2-1.0) Aspartate Amino Transf (AST/SGOT) 27U/L (15-37) Alanine Aminotransferase (ALT/SGPT) 20U/L (16-63) Alkaline Phosphatase 70U/L (46-116) Troponin I Quantitative < 0.015ng/mL (0.000-0.055) Total Protein 6.6g/dL (6.4-8.2) Albumin 2.4g/dL (3.4-5.0) Albumin/Globulin Ratio 0.6 (1.0-1.7) Urine Collection Type Unknown Urine Color Yellow Urine Clarity Cloudy Urine pH 7.5 Urine Specific [place] 1.015 Urine Protein Negativemg/dL (NEG-TRACE) Urine Glucose (UA) Negativemg/dL (NEG) Urine Ketones (Stick) Negativemg/dL (NEG) Urine Blood Moderate (NEG) Urine Nitrite Negative (NEG) Urine Bilirubin Negative (NEG) Urine Urobilinogen Dipstick 1.0mg/dL (0.2 mg/dL) Urine Leukocyte Esterase Moderate (NEG) Urine RBC 20-40/HPF (0-2) Urine WBC Tntc/HPF (0-4) Urine Squamous Epithelial Cells None/LPF Urine Amorphous Sediment Present/HPF Urine Bacteria Moderate/HPF (0-FEW) Urine Mucus Mod/LPF Urine Yeast Present/HPF O2 Saturation 97% (92-99) Arterial Blood pH 7.41 (7.35-7.45) Arterial Blood pCO2 at Patient Temp 46mmHg (35-46) Arterial Blood pO2 at Patient Temp 95mmHg (65-108) Arterial Blood HCO3 28mmol/L (21-28) Arterial Blood Base Excess 3mmol/L (-3-3) FiO2 60 Influenza Type A Antigen Negative (NEGATIVE) Influenza Type B Antigen Negative (NEGATIVE) Nasal Screen MRSA (PCR) Negative (Negative) Test 10/06/16 03:00 10/07/16 03:00 10/07/16 11:15 White Blood Count 17.5x10^3/uL (4.0-11.0) 15.9x10^3/uL (4.0-11.0) Red Blood Count 3.95x10^6/uL (4.30-5.70) 3.74x10^6/uL (4.30-5.70) Hemoglobin 11.9g/dL (13.0-17.5) 11.6g/dL (13.0-17.5) Hematocrit 36.1% (39.0-53.0) 34.2% (39.0-53.0) Mean Corpuscular Volume 91fL (79-100) 91fL (79-100) Mean Corpuscular Hemoglobin 30pg (25-35) 31pg (25-35) Mean Corpuscular Hemoglobin Concent 33g/dL (31-37) 34g/dL (31-37) Red Cell Distribution Width 14.4% (11.5-14.5) 14.5% (11.5-14.5) Platelet Count 175x10^3/uL (140-400) 174x10^3/uL (140-400) Neutrophils (%) (Auto) 80% (31-73) 85% (31-73) Lymphocytes (%) (Auto) 5% (24-48) 4% (24-48) Monocytes (%) (Auto) 13% (0-9) 8% (0-9) Eosinophils (%) (Auto) 2% (0-3) 3% (0-3) Basophils (%) (Auto) 0% (0-3) 0% (0-3) Neutrophils # (Auto) 13.9x10^3uL (1.8-7.7) 13.4x10^3uL (1.8-7.7) Lymphocytes # (Auto) 0.9x10^3/uL (1.0-4.8) 0.6x10^3/uL (1.0-4.8) Monocytes # (Auto) 2.2x10^3/uL (0.0-1.1) 1.3x10^3/uL (0.0-1.1) Eosinophils # (Auto) 0.4x10^3/uL (0.0-0.7) 0.5x10^3/uL (0.0-0.7) Basophils # (Auto) 0.1x10^3/uL (0.0-0.2) 0.1x10^3/uL (0.0-0.2) Sodium Level 131mmol/L (136-145) 135mmol/L (136-145) Potassium Level 4.1mmol/L (3.5-5.1) 3.7mmol/L (3.5-5.1) Chloride Level 95mmol/L (98-107) 97mmol/L (98-107) Carbon Dioxide Level 34mmol/L (21-32) 38mmol/L (21-32) Anion Gap 2 (6-14) 0 (6-14) Blood Urea Nitrogen 12mg/dL (8-26) 17mg/dL (8-26) Creatinine 0.6mg/dL (0.7-1.3) 0.8mg/dL (0.7-1.3) Estimated GFR (Cockcroft-Gault) 131.3 94.2 Glucose Level 102mg/dL (70-99) 132mg/dL (70-99) Calcium Level 8.5mg/dL (8.5-10.1) 8.4mg/dL (8.5-10.1) Creatine Kinase 37U/L (39-308) TS-Iat-F-Type Natriuretic Peptide 850pg/mL (0-449) Vitamin B12 Level 795pg/mL (247-911) Thyroid Stimulating Hormone (TSH) 3.779uIU/mL (0.358-3.74) Magnesium Level 1.9mg/dL (1.8-2.4) Vancomycin Level Trough 15.3mcg/mL (10.0-20.0) Vancomycin Last Dose Date 10-07-16 Vancomycin Last Dose Time 0000 Laboratory Tests Test 10/07/16 03:00 10/07/16 11:15 White Blood Count 15.9x10^3/uL (4.0-11.0) Red Blood Count 3.74x10^6/uL (4.30-5.70) Hemoglobin 11.6g/dL (13.0-17.5) Hematocrit 34.2% (39.0-53.0) Mean Corpuscular Volume 91fL (79-100) Mean Corpuscular Hemoglobin 31pg (25-35) Mean Corpuscular Hemoglobin Concent 34g/dL (31-37) Red Cell Distribution Width 14.5% (11.5-14.5) Platelet Count 174x10^3/uL (140-400) Neutrophils (%) (Auto) 85% (31-73) Lymphocytes (%) (Auto) 4% (24-48) Monocytes (%) (Auto) 8% (0-9) Eosinophils (%) (Auto) 3% (0-3) Basophils (%) (Auto) 0% (0-3) Neutrophils # (Auto) 13.4x10^3uL (1.8-7.7) Lymphocytes # (Auto) 0.6x10^3/uL (1.0-4.8) Monocytes # (Auto) 1.3x10^3/uL (0.0-1.1) Eosinophils # (Auto) 0.5x10^3/uL (0.0-0.7) Basophils # (Auto) 0.1x10^3/uL (0.0-0.2) Sodium Level 135mmol/L (136-145) Potassium Level 3.7mmol/L (3.5-5.1) Chloride Level 97mmol/L (98-107) Carbon Dioxide Level 38mmol/L (21-32) Anion Gap 0 (6-14) Blood Urea Nitrogen 17mg/dL (8-26) Creatinine 0.8mg/dL (0.7-1.3) Estimated GFR (Cockcroft-Gault) 94.2 Glucose Level 132mg/dL (70-99) Calcium Level 8.4mg/dL (8.5-10.1) Magnesium Level 1.9mg/dL (1.8-2.4) Vancomycin Level Trough 15.3mcg/mL (10.0-20.0) Vancomycin Last Dose Date 10-07-16 Vancomycin Last Dose Time 0000 Microbiology 10/05/16 Blood Culture - Preliminary, Resulted NO GROWTH AFTER 1 DAY 10/05/16 Urine Culture - Preliminary, Resulted 10/05/16 Urine Culture Result 1 (JABARI) - Preliminary, Resulted Medications Current Medications Albuterol/ Ipratropium (Duoneb) 3 ml 1X ONCE NEB Last administered on t 22:21; Start 10/05/16 at 22:15; Stop 10/05/16 at 22:50; Status DC Ondansetron HCl 4 mg 4 mg PRN Q8HRS PRN IV NAUSEA/VOMITING; Start 10/05/16 at 23 :00; Stop 10/06/16 at 22:59; Status DC Sodium Chloride (Iv Sodium Chloride 0.9% 1000ml Bag) 1,000 ml @ 100 mls/hr Q10H IV Last administered on 10/06/16 18:59; Start 10/05/16 at 22:59; Stop at 22:58; Status DC Albuterol/ Ipratropium 3 ml 3 ml RTQID NEB Last administered on 10/07/16 07:47 ; Start 10/06/16 at 08:00; Stop 10/07/16 at 07:59; Status DC Ceftriaxone Sodium 1 gm/ Sodium Chloride 50 ml @ 100 mls/hr Q24H IV ; Start 10/06/16 at 22:00; Stop 10/06/16 at 22:00; Status DC Levofloxacin/ Dextrose (LEVAQUIN 750mg PREMIX) 150 ml @ 100 mls/hr 1X ONCE IV Last administered on 10/06/16 01:05; Start 10/05/16 at 23:30; Stop 10/06/16 at 00:59; Status DC Vancomycin HCl 1 each 1 each PRN DAILY PRN MC SEE COMMENTS Last administered on 10/07/16 12:50; Start 10/05/16 at 23:00 Ceftriaxone Sodium 50 ml @ 100 mls/hr 1X ONCE IV Last administered on 01:05; Start 10/05/16 at 23:30; Stop 10/05/16 at 23:59; Status DC Vancomycin HCl 2 gm/Sodium Chloride 500 ml @ 250 mls/hr 1X ONCE IV Last administered on 10/05/16 23:26; Start 10/06/16 at 00:00; Stop 10/06/16 at 01:59; Status DC Vancomycin HCl/ Sodium Chloride (Iv Sodium Chloride 0.9% 250ml) 250 ml @ 167 mls/hr Q12H IV Last administered on 10/07/16 13:39; Start 10/06/16 at 12:00 Vancomycin HCl 1 each 1 each 1X ONCE MC ; Start 10/07/16 at 11:30; Stop 10/07/16 at 11:31; Status DC Piperacillin Sod/ Tazobactam Sod/ Sodium Chloride (Zosyn/Iv Sodium Chloride 0.9 % 50ml) 50 ml @ 100 mls/hr Q6HRS IV Last administered on 10/06/16 11:56; Start 10/06/16 at 11:00; Stop 10/06/16 at 15:24; Status DC Piperacillin Sod/ Tazobactam Sod (Zosyn Per Pharmacy) 1 each PRN DAILY PRN MC SEE COMMENTS; Start 10/06/16 at 10:15 Aspirin (Ecotrin) 81 mg DAILY PO ; Start 10/06/16 at 11:30; Stop 10/06/16 at 11:30 ; Status DC Bisacodyl (Dulcolax Supp) 10 mg PRN DAILY PRN RC CONSTIPATION; Start 10/06/16 at 10:15 Furosemide (Lasix) 40 mg DAILY PO Last administered on 10/07/16 08:57; Start at 11:30 Guaifenesin (Mucinex) 600 mg BID PO ; Start 10/06/16 at 11:30; Stop 10/06/16 at 11 :30; Status DC Potassium Chloride (KCl Oral Soln) 10 meq DAILY PEG Last administered on 08:58; Start 10/06/16 at 11:30 Simvastatin (Zocor) 20 mg QHS PO Last administered on 10/06/16 21:06; Start 10/06/16 at 21:00 Tamsulosin HCl (Flomax) 0.4 mg DAILY PO Last administered on 10/07/16 08:58; Start 10/06/16 at 11:30 Multivitamins/ Minerals (Ocuvite Lutein) 1 cap DAILY PO Last administered on 08:57; Start 10/06/16 at 11:00 Artificial Tears (Artificial Tears) 1 drop PRN BID PRN OU DRY EYE; Start at 10:30 Aspirin (Children'S Aspirin) 81 mg DAILYWBKFT PO Last administered on 10/07/16 08:57; Start 10/06/16 at 11:30 Guaifenesin (Robitussin) 200 mg QID PO Last administered on 10/07/16 13:39; Start 10/06/16 at 11:30 Furosemide (Lasix) 40 mg 1X ONCE IVP Last administered on 10/06/16 12:01; Start 10/06/16 at 12:00; Stop 10/06/16 at 12:01; Status DC Acetaminophen (Tylenol) 650 mg PRN Q6HRS PRN PEG MILD PAIN / TEMP Last administered on 10/07/16 08:58; Start 10/06/16 at 12:15 Ondansetron HCl (Zofran) 4 mg PRN Q6HRS PRN IV NAUSEA/VOMITING; Start 10/06/16 at 12:15 Enoxaparin Sodium (Lovenox 40mg Syringe) 40 mg Q24H SQ Last administered on 10/07 13:40; Start 10/06/16 at 13:00 Nystatin 1 alejandro 1 alejandro BID TP Last administered on 10/07/16 08:59; Start 10/06/16 at 14:30 Piperacillin Sod/ Tazobactam Sod/ Sodium Chloride (Zosyn/Iv Sodium Chloride 0.9 % 100ml) 100 ml @ 200 mls/hr Q6HRS IV Last administered on 10/07/16 12:44; Start 10/06/16 at 18:00 Meloxicam (Mobic) 7.5 mg DAILY PO Last administered on 10/07/16 10:21; Start at 10:00 Acetaminophen/ Hydrocodone Bitart (Lortab 5/325) 1 tab PRN Q4HRS PRN PO PAIN MILD TO MOD; Start 10/07/16 at 10:45 Furosemide (Lasix) 20 mg 1X ONCE IVP ; Start 10/07/16 at 12:00; Stop 10/07/16 at 12:01; Status DC Active Scripts Active Reported Isopto Tears (Hypromellose) 15 Ml Drops 15 Ml OP Oxycodone Hcl 10 Mg Tablet 1 Tab PO QID Ocuvite Tablet (Vit A,C & E/Lutein/Minerals) 1 Each Tablet 1 Each PO Dulcolax (Bisacodyl) 10 Mg Supp.rect 10 Mg RC PRN DAILY PRN Milk Of Magnesia (Magnesium Hydroxide) 400 Mg/5 Ml Oral.susp 400 Mg PO Simvastatin 20 Mg Tablet 1 Tab PO QHS Refresh Optive Eye Drops (Carboxymethylcellulos/Glycerin) 15 Ml Drops 1 Drop EACHEYE BID Tamsulosin Hcl 0.4 Mg Cap.er.24h 1 Cap PO DAILY Potassium Chloride Oral Liquid (Potassium Chloride) 20 Meq/15 Ml Liquid 10 Meq PEG DAILY Aspir 81 (Aspirin) 81 Mg Tablet.dr 1 Tab PO DAILY Furosemide 40 Mg Tablet 1 Tab PO DAILY Meloxicam 7.5 Mg Tablet 1 Tab PO DAILY Trazodone Hcl 50 Mg Tablet 1 Tab PO QHS Mucinex (Guaifenesin) 600 Mg Tablet.er 600 Mg PO Vitals/I & O Vital Sign - Last 24 Hours 10/06/16 10/06/16 10/06/16 10/06/16 14:40 17:10 17:13 19:00 Temp 98.1 99.1 98.1 99.1 Pulse 94 84 Resp 16 B/P 101/48 93/42 Pulse Ox 98 100 94 95 O2 Delivery Simple Mask Simple Mask Nasal Cannula Nasal Cannula O2 Flow Rate 15.0 5.0 5.0 10/06/16 10/06/16 10/06/16 10/07/16 19:58 19:59 23:00 03:00 Temp 97.7 98.1 97.7 98.1 Pulse 97 102 Resp 16 B/P 102/39 103/44 Pulse Ox 95 96 90 O2 Delivery Nasal Cannula Non-Rebreather Nasal Cannula Nasal Cannula O2 Flow Rate 5.0 5.0 5.0 5.0 10/07/16 10/07/16 10/07/16 10/07/16 07:35 07:54 08:00 10:17 Temp 99.9 98.2 99.9 98.2 Pulse 97 99 Resp 18 B/P 113/48 104/44 Pulse Ox 90 90 90 O2 Delivery Nasal Cannula Nasal Cannula Nasal Cannula Nasal Cannula O2 Flow Rate 5.0 5.0 5.0 5.0 Intake and Output 10/06/16 10/06/16 10/07/16 15:00 23:00 07:00 Intake Total 0 ml 0 ml Output Total 900 ml 2700 ml 1500 ml Balance -900 ml -2700 ml -1500 ml EDWARDO AMES MD Oct 07, 2016 14:00
[2016-10-07 14:58] VITALS: BP 117/54
--- NOTE | 2016-10-07 18:17 | PDOC ---
PROGRESS NOTES Assessment Assessment Metabolic encephalopathy. Hypoxia event, SO2 80s% Respiratory distress/failure. Pneumonia, LL Tachycardia Leukocytosis Generalized weakness. CAD CHF HTN HLD RECOMMENDATIONS/PLAN: Brain MRI w/o contrast. EEG Lab: see orders. Treat UTI Treat medical diseases. OT/PT Discussed with his daughter and grand-daughter at bedside. HISTORY OF THE PRESENT ILLNESS: 76-y-old male patient with above medical diseases developed symptoms of SOB, difficult breathing, altered mental status, and other medical symptoms. Neurology was called for consultation due to MS changes. No focalized motor or sensory deficits reported. He still has persistent mental status changes on 10/07. PAST MEDICAL HISTORY: Please see above. PAST SURGERY HISTORY: PEG placement. ALLERGY: Reviewed. MEDICATIONS: Refer to [facility] FAMILY HISTORY: Non contributory. SOCIAL HISTORY: Lives at home. Denies current substances and illicit drug use. REVIEW OF SYSTEMS: Constitutional: No malnutrition, weight loss, cachexia. Head: No current traumatic brain or head injury. Skin: No edema, or rash. Ear: No infection, tinnitus. Eyes: No vision loss or color blindness. Nose: No bleeding or purulent discharges. Hearing: Hearing decrease. Neck: No injury. Cardiac: CAD, HTN, HLD. Pulmonary: No pneumonia, COPD. GI: No GI ulcer, GI bleeding, GERD. Urinary/genital: UTI. Endocrinologic: No cousin face, craniofacial dysmorphism, polydactyly Skeletomuscular: Generalized weakness. Neurological: see HP. Psychiatric: Denies drug use/abuse. Otherwise, not [id number] review of systems. PHYSICAL EXAMINATION: General appearance is in subacute distress. HEENT: Normocephalic and nontraumatic. Eyes, nose, ears, and throat are unremarkable. Neck is supple. No lymphadenopathy. No crepitus. Cardiovascular: S1, S2, regular rate and rhythm. Pulmonary: Clear to auscultation bilaterally. Abdomen: Bowel sounds are positive. Extremities: No rash, lesions, or edema. No restriction of range of motion NEUROLOGICAL EXAMINATION: Sleepiness but arousable. Oriented to place and person but not accurate to time. PERRL. EOMI. CN: no focal findings. Muscle tone: within normal. Muscle strength: 4 DTR: 2- Plantar reflex: Flexor response bilaterally Gait: not examined in bed. Sensory exam: no abnormal findings. No acute cerebellar signs elicited. F-T-N test not performed.. Objective Objective Vital Signs Date Time Temp Pulse Resp B/P Pulse Ox O2 Delivery O2 Flow Rate FiO2 10/07/16 14:58 98.1 90 18 117/54 89 Nasal Cannula 6.0 98.1 Intake and Output 10/07/16 07:00 Intake Total 0 ml Output Total 5100 ml Balance -5100 ml Intake Oral 0 ml Output Urine Total 5100 ml Vitals Signs Vitals VS - Last 72 Hours, by Label Date Time Temp Pulse Resp B/P Pulse Ox O2 Delivery O2 Flow Rate FiO2 10/07/16 14:58 98.1 90 18 117/54 89 Nasal Cannula 6.0 98.1 10/07/16 10:17 98.2 99 18 104/44 90 Nasal Cannula 5.0 98.2 10/07/16 08:00 Nasal Cannula 5.0 10/07/16 07:54 90 Nasal Cannula 5.0 10/07/16 07:35 99.9 97 18 113/48 90 Nasal Cannula 5.0 99.9 10/07/16 03:00 98.1 102 16 103/44 90 Nasal Cannula 5.0 98.1 10/06/16 23:00 97.7 97 16 102/39 96 Nasal Cannula 5.0 97.7 10/06/16 19:59 Non-Rebreather 5.0 10/06/16 19:58 95 Nasal Cannula 5.0 10/06/16 19:00 99.1 84 16 93/42 95 Nasal Cannula 5.0 99.1 10/06/16 17:13 94 Nasal Cannula 5.0 10/06/16 17:10 100 Simple Mask 15.0 10/06/16 14:40 98.1 94 18 101/48 98 Simple Mask 98.1 10/06/16 13:10 97 Simple Mask 15.0 10/06/16 10:35 96.6 89 18 117/44 95 BiPAP/CPAP 96.6 10/06/16 08:00 Bi-pap 15.0 10/06/16 07:43 96 BiPAP/CPAP 10/06/16 07:30 98.1 95 18 111/55 94 BiPAP/CPAP 98.1 Laboratory Laboratory Laboratory Tests Test 10/07/16 03:00 10/07/16 11:15 White Blood Count 15.9x10^3/uL (4.0-11.0) Red Blood Count 3.74x10^6/uL (4.30-5.70) Hemoglobin 11.6g/dL (13.0-17.5) Hematocrit 34.2% (39.0-53.0) Mean Corpuscular Volume 91fL (79-100) Mean Corpuscular Hemoglobin 31pg (25-35) Mean Corpuscular Hemoglobin Concent 34g/dL (31-37) Red Cell Distribution Width 14.5% (11.5-14.5) Platelet Count 174x10^3/uL (140-400) Neutrophils (%) (Auto) 85% (31-73) Lymphocytes (%) (Auto) 4% (24-48) Monocytes (%) (Auto) 8% (0-9) Eosinophils (%) (Auto) 3% (0-3) Basophils (%) (Auto) 0% (0-3) Neutrophils # (Auto) 13.4x10^3uL (1.8-7.7) Lymphocytes # (Auto) 0.6x10^3/uL (1.0-4.8) Monocytes # (Auto) 1.3x10^3/uL (0.0-1.1) Eosinophils # (Auto) 0.5x10^3/uL (0.0-0.7) Basophils # (Auto) 0.1x10^3/uL (0.0-0.2) Sodium Level 135mmol/L (136-145) Potassium Level 3.7mmol/L (3.5-5.1) Chloride Level 97mmol/L (98-107) Carbon Dioxide Level 38mmol/L (21-32) Anion Gap 0 (6-14) Blood Urea Nitrogen 17mg/dL (8-26) Creatinine 0.8mg/dL (0.7-1.3) Estimated GFR (Cockcroft-Gault) 94.2 Glucose Level 132mg/dL (70-99) Calcium Level 8.4mg/dL (8.5-10.1) Magnesium Level 1.9mg/dL (1.8-2.4) Vancomycin Level Trough 15.3mcg/mL (10.0-20.0) Vancomycin Last Dose Date 10-07-16 Vancomycin Last Dose Time 0000 Microbiology 10/05/16 Blood Culture - Preliminary, Resulted NO GROWTH AFTER 1 DAY 10/05/16 Urine Culture - Preliminary, Resulted 10/05/16 Urine Culture Result 1 (JABARI) - Preliminary, Resulted Medication Medications Current Medications Acetaminophen/ Hydrocodone Bitart (Lortab 5/325) 1 tab PRN Q4HRS PRN PO PAIN MILD TO MOD; Start 10/07/16 at 10:45 Ceftriaxone Sodium/Sodium Chloride (Rocephin/Iv Sodium Chloride 0.9% 50ml) 50 ml @ 100 mls/hr Q24H IV ; Start 10/06/16 at 22:00; Stop 10/06/16 at 22:00; Status DC Furosemide (Lasix) 20 mg 1X ONCE IVP ; Start 10/07/16 at 12:00; Stop 10/07/16 at 12:01; Status DC Meloxicam (Mobic) 7.5 mg DAILY PO Last administered on 10/07/16t 10:21; Start at 10:00 Simvastatin (Zocor) 20 mg QHS PO Last administered on 10/06/16 21:06; Start 10/06/16 at 21:00 Vancomycin HCl 1 each 1X ONCE MC ; Start 10/07/16 at 11:30; Stop 10/07/16 at 11: 31; Status DC Comment Review of Relevant I have reviewed the following items cassidy (where applicable) has been applied. HUMA GODWIN MD Oct 07, 2016 18:17
[2016-10-07 19:00] VITALS: BP 101/50
[2016-10-07] MEDS: SIMVASTATIN 20 MG TABLET PO SCH (20:51)
[2016-10-07] MEDS ORDERED: DIGOXIN 500 MCG/2 ML AMPUL. IV ONE (22:15)
[2016-10-07 23:00] VITALS: BP 91/43
[2016-10-08] VITALS (7 sets, daily range): BP systolic 95–128; BP diastolic 38–68
[2016-10-08] MEDS: PIPERACILLIN/TAZOBACTAM 4.5 GM in IV NORMAL SALINE 100ML 100 ML IV SCH ×4 (00:20→17:20)
[2016-10-08] MEDS: VANCOMYCIN 1.25 GM in IV NORMAL SALINE 250ML 250 ML IV SCH ×2 (01:04→13:20)
[2016-10-08 05:23] LABS: BASO # 0.1 x10^3/uL (0.0-0.2); BASO % 0 % (0-3); EOS % 2 % (0-3); HEMATOCRIT 33.6 % (39.0-53.0); HEMOGLOBIN 11.1 g/dL (13.0-17.5); LYMPH % 5 % (24-48); MEAN CORPUSCULAR HEMOGLOBIN 30 pg (25-35); MEAN CORPUSCULAR HGB CONC 33 g/dL (31-37); MEAN CORPUSCULAR VOLUME 92 fL (79-100); MONO % 6 % (0-9); NEUT % 87 % (31-73); PLATELET COUNT 178 x10^3/uL (140-400); RED BLOOD COUNT 3.67 x10^6/uL (4.30-5.70); RED CELL DISTRIBUTION WIDTH 14.2 % (11.5-14.5); WHITE BLOOD COUNT 21.6 x10^3/uL (4.0-11.0)
[2016-10-08 05:40] LABS: CALCIUM 8.4 mg/dL (8.5-10.1); CREATININE 0.8 mg/dL (0.7-1.3); GFR 94.2; POTASSIUM 3.5 mmol/L (3.5-5.1)
[2016-10-08] MEDS: HYDROCODONE/APAP 5/325MG TABLET. PO PRN ×3 (07:35→20:11)
--- NOTE | 2016-10-08 08:09 | RAD ---
PROCEDURE Brain MRI without contrast. HISTORY Lethargy. Lower extremity weakness. TECHNIQUE Multiplanar and multi sequence magnetic resonance imaging of the brain was performed without contrast. COMPARISON Head CT dated 10/06/2016. FINDINGS There is no restricted diffusion to suggest acute or subacute infarction. There is no susceptibility effect to suggest hemorrhage. There are foci of susceptibility effect within the basal ganglia likely due to calcification. There are scattered areas of signal change within the cerebral white matter and jero, a nonspecific finding likely due to chronic small vessel disease. There are chronic lacunar infarct within the right thalamus and caudate nucleus. There is a tiny focus of encephalomalacia within the left cerebellum also likely due to chronic infarction. There is cerebral volume loss. There are findings consistent with lens surgery. There is moderate sphenoid sinus mucosal thickening. There is fluid within the mastoid air cells. There are normal flow voids within the cerebral vessels. IMPRESSION 1. No acute intracranial finding. 2. Scattered areas of signal change throughout the cerebral white matter and jero, a nonspecific finding likely due to chronic small vessel disease. 3. 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 4. Cerebral volume loss. 5. Sphenoid sinus disease. Electronically signed by: Cookie Michele (Oct 08, 2016 08:07:31)
[2016-10-08] MEDS: FUROSEMIDE 40 MG TABLET PO SCH (08:20)
--- NOTE | 2016-10-08 08:54 | PDOC ---
PULMONARY PROGRESS NOTES Subjective NO SOA AWAKE, OFF BIPAP NEW FEVER Vitals Vital Signs Date Time Temp Pulse Resp B/P Pulse Ox O2 Delivery O2 Flow Rate FiO2 10/08/16 03:23 96.3 124 20 100/48 93 Nasal Cannula 96.3 10/07/16 20:00 5.0 General: Alert, No acute distress Lungs: Clear Cardiovascular: S1 Abdomen: Soft Neuro Exam: Alert Extremities: Other (1+edema) Labs Laboratory Tests Test 10/07/16 03:00 10/07/16 11:15 10/08/16 03:50 White Blood Count 15.9x10^3/uL (4.0-11.0) 21.6x10^3/uL (4.0-11.0) Red Blood Count 3.74x10^6/uL (4.30-5.70) 3.67x10^6/uL (4.30-5.70) Hemoglobin 11.6g/dL (13.0-17.5) 11.1g/dL (13.0-17.5) Hematocrit 34.2% (39.0-53.0) 33.6% (39.0-53.0) Mean Corpuscular Volume 91fL (79-100) 92fL (79-100) Mean Corpuscular Hemoglobin 31pg (25-35) 30pg (25-35) Mean Corpuscular Hemoglobin Concent 34g/dL (31-37) 33g/dL (31-37) Red Cell Distribution Width 14.5% (11.5-14.5) 14.2% (11.5-14.5) Platelet Count 174x10^3/uL (140-400) 178x10^3/uL (140-400) Neutrophils (%) (Auto) 85% (31-73) 87% (31-73) Lymphocytes (%) (Auto) 4% (24-48) 5% (24-48) Monocytes (%) (Auto) 8% (0-9) 6% (0-9) Eosinophils (%) (Auto) 3% (0-3) 2% (0-3) Basophils (%) (Auto) 0% (0-3) 0% (0-3) Neutrophils # (Auto) 13.4x10^3uL (1.8-7.7) 18.7x10^3uL (1.8-7.7) Lymphocytes # (Auto) 0.6x10^3/uL (1.0-4.8) 1.0x10^3/uL (1.0-4.8) Monocytes # (Auto) 1.3x10^3/uL (0.0-1.1) 1.3x10^3/uL (0.0-1.1) Eosinophils # (Auto) 0.5x10^3/uL (0.0-0.7) 0.5x10^3/uL (0.0-0.7) Basophils # (Auto) 0.1x10^3/uL (0.0-0.2) 0.1x10^3/uL (0.0-0.2) Sodium Level 135mmol/L (136-145) 135mmol/L (136-145) Potassium Level 3.7mmol/L (3.5-5.1) 3.5mmol/L (3.5-5.1) Chloride Level 97mmol/L (98-107) 97mmol/L (98-107) Carbon Dioxide Level 38mmol/L (21-32) 37mmol/L (21-32) Anion Gap 0 (6-14) 1 (6-14) Blood Urea Nitrogen 17mg/dL (8-26) 20mg/dL (8-26) Creatinine 0.8mg/dL (0.7-1.3) 0.8mg/dL (0.7-1.3) Estimated GFR (Cockcroft-Gault) 94.2 94.2 Glucose Level 132mg/dL (70-99) 109mg/dL (70-99) Calcium Level 8.4mg/dL (8.5-10.1) 8.4mg/dL (8.5-10.1) Magnesium Level 1.9mg/dL (1.8-2.4) Vancomycin Level Trough 15.3mcg/mL (10.0-20.0) Vancomycin Last Dose Date 10-07-16 Vancomycin Last Dose Time 0000 Uric Acid 3.8mg/dL (3.5-7.2) Laboratory Tests Test 10/07/16 11:15 10/08/16 03:50 Vancomycin Level Trough 15.3mcg/mL (10.0-20.0) Vancomycin Last Dose Date 10-07-16 Vancomycin Last Dose Time 0000 White Blood Count 21.6x10^3/uL (4.0-11.0) Red Blood Count 3.67x10^6/uL (4.30-5.70) Hemoglobin 11.1g/dL (13.0-17.5) Hematocrit 33.6% (39.0-53.0) Mean Corpuscular Volume 92fL (79-100) Mean Corpuscular Hemoglobin 30pg (25-35) Mean Corpuscular Hemoglobin Concent 33g/dL (31-37) Red Cell Distribution Width 14.2% (11.5-14.5) Platelet Count 178x10^3/uL (140-400) Neutrophils (%) (Auto) 87% (31-73) Lymphocytes (%) (Auto) 5% (24-48) Monocytes (%) (Auto) 6% (0-9) Eosinophils (%) (Auto) 2% (0-3) Basophils (%) (Auto) 0% (0-3) Neutrophils # (Auto) 18.7x10^3uL (1.8-7.7) Lymphocytes # (Auto) 1.0x10^3/uL (1.0-4.8) Monocytes # (Auto) 1.3x10^3/uL (0.0-1.1) Eosinophils # (Auto) 0.5x10^3/uL (0.0-0.7) Basophils # (Auto) 0.1x10^3/uL (0.0-0.2) Sodium Level 135mmol/L (136-145) Potassium Level 3.5mmol/L (3.5-5.1) Chloride Level 97mmol/L (98-107) Carbon Dioxide Level 37mmol/L (21-32) Anion Gap 1 (6-14) Blood Urea Nitrogen 20mg/dL (8-26) Creatinine 0.8mg/dL (0.7-1.3) Estimated GFR (Cockcroft-Gault) 94.2 Glucose Level 109mg/dL (70-99) Uric Acid 3.8mg/dL (3.5-7.2) Calcium Level 8.4mg/dL (8.5-10.1) Medications Active Scripts Medications Dose Route/Sig Days Date Category Isopto Tears (Hypromellose) 15 Ml Drops 15 Ml OP 10/06/16 Reported Oxycodone Hcl 10 Mg Tablet 1 Tab PO QID 10/06/16 Reported Ocuvite Tablet (Vit A,C & E/Lutein/Minerals) 1 Each Tablet 1 Each PO 10/06/16 Reported Dulcolax (Bisacodyl) 10 Mg Supp.rect 10 Mg RC PRN DAILY PRN 10/06/16 Reported Milk Of Magnesia (Magnesium Hydroxide) 400 Mg/5 Ml Oral.susp 400 Mg PO 10/06/16 Reported Simvastatin 20 Mg Tablet 1 Tab PO QHS 10/06/16 Reported Refresh Optive Eye Drops (Carboxymethylcellulos/Glycerin) 15 Ml Drops 1 Drop EACHEYE BID 10/06/16 Reported Tamsulosin Hcl 0.4 Mg Cap.er.24h 1 Cap PO DAILY 10/06/16 Reported Potassium Chloride Oral Liquid (Potassium Chloride) 20 Meq/15 Ml Liquid 10 Meq PEG DAILY 10/06/16 Reported Aspir 81 (Aspirin) 81 Mg Tablet.dr 1 Tab PO DAILY 10/06/16 Reported Furosemide 40 Mg Tablet 1 Tab PO DAILY 10/06/16 Reported Meloxicam 7.5 Mg Tablet 1 Tab PO DAILY 10/06/16 Reported Trazodone Hcl 50 Mg Tablet 1 Tab PO QHS 10/06/16 Reported Mucinex (Guaifenesin) 600 Mg Tablet.er 600 Mg PO 10/06/16 Reported Impression . 1. Acute hypoxic respiratory failure, I suspect related to left basilar pneumonia; New fever today despite improving CXR. ID consulted 2. Questionable mild chronic obstructive pulmonary disease. 3. Mild hyponatremia. Could be dilutional. 4. Abnormal chest x-ray with mild cardiomegaly and volume loss, left lower lobe. Possible left lower lobe pneumonia, cannot exclude the possibility of a small effusion related to mild congestive heart failure. 5. History of coronary artery disease. 6. History of chronic percutaneous endoscopic gastrostomy tube. He uses enteral nutrition as well as oral nutrition. According to daughter, he is a picky eater, so he does not meet his nutritional needs by oral intake only. 7. Leukocytosis, new fever Plan . 1. We will gradually wean the FiO2. 2. hold lasix due to low BP 3. Continue broad-spectrum antibiotics.ID consulted 4. Follow chest x-ray.10/08 with improving LLL volume loss 5. Nebulizer treatments as scheduled. 6. May need ct chest,abd/pelvis 7. Discussed with the patient's granddaughter at the bedside and Dr Venegas 8. d/w MARÍA Wooten MD Oct 08, 2016 08:54
--- NOTE | 2016-10-08 08:58 | RAD ---
EXAM: Chest one view. HISTORY: Pleural effusion. COMPARISON: 10/05/2016. FINDINGS: A frontal view of the chest is obtained. There are changes of coronary artery bypass grafting. A gastrostomy catheter is noted. There is a small left pleural effusion. The inspiration is small with left greater than right basilar atelectasis. There is no pneumothorax. The heart is not enlarged. There are atherosclerotic calcifications of the aorta. IMPRESSION: 1. Small left pleural effusion. Small inspiration with basilar atelectasis.
[2016-10-08] MEDS: GUAIFENESIN 200 MG/10 ML LIQUID. PO SCH ×4 (09:00→22:05)
[2016-10-08] MEDS: MICAFUNGIN 100 MG in IV DEXTROSE 5% 100 ML IV SCH (09:00)
[2016-10-08] MEDS: ASPIRIN 81 MG TAB.CHEW PO SCH (09:00)
[2016-10-08] MEDS: POTASSIUM CHLORIDE 20 MEQ/15 ML ORAL LIQUID. PEG SCH (09:00)
[2016-10-08] MEDS: MULTIVITAMIN EYE FORMULA CAPSULE. PO SCH (09:00)
[2016-10-08] MEDS: NYSTATIN TOPICAL POWDER 15GM BOTTLE. TP SCH ×2 (09:00→22:05)
[2016-10-08] MEDS: MELOXICAM 7.5 MG TABLET PO SCH (09:00)
--- NOTE | 2016-10-08 09:04 | PDOC ---
Infectious Disease Note Vital Sign Vital Signs Vital Signs Date Time Temp Pulse Resp B/P Pulse Ox O2 Delivery O2 Flow Rate FiO2 10/08/16 03:23 96.3 124 20 100/48 93 Nasal Cannula 96.3 10/07/16 20:00 5.0 Labs Lab Laboratory Tests Test 10/07/16 11:15 10/08/16 03:50 Vancomycin Level Trough 15.3mcg/mL (10.0-20.0) Vancomycin Last Dose Date 10-07-16 Vancomycin Last Dose Time 0000 White Blood Count 21.6x10^3/uL (4.0-11.0) Red Blood Count 3.67x10^6/uL (4.30-5.70) Hemoglobin 11.1g/dL (13.0-17.5) Hematocrit 33.6% (39.0-53.0) Mean Corpuscular Volume 92fL (79-100) Mean Corpuscular Hemoglobin 30pg (25-35) Mean Corpuscular Hemoglobin Concent 33g/dL (31-37) Red Cell Distribution Width 14.2% (11.5-14.5) Platelet Count 178x10^3/uL (140-400) Neutrophils (%) (Auto) 87% (31-73) Lymphocytes (%) (Auto) 5% (24-48) Monocytes (%) (Auto) 6% (0-9) Eosinophils (%) (Auto) 2% (0-3) Basophils (%) (Auto) 0% (0-3) Neutrophils # (Auto) 18.7x10^3uL (1.8-7.7) Lymphocytes # (Auto) 1.0x10^3/uL (1.0-4.8) Monocytes # (Auto) 1.3x10^3/uL (0.0-1.1) Eosinophils # (Auto) 0.5x10^3/uL (0.0-0.7) Basophils # (Auto) 0.1x10^3/uL (0.0-0.2) Sodium Level 135mmol/L (136-145) Potassium Level 3.5mmol/L (3.5-5.1) Chloride Level 97mmol/L (98-107) Carbon Dioxide Level 37mmol/L (21-32) Anion Gap 1 (6-14) Blood Urea Nitrogen 20mg/dL (8-26) Creatinine 0.8mg/dL (0.7-1.3) Estimated GFR (Cockcroft-Gault) 94.2 Glucose Level 109mg/dL (70-99) Uric Acid 3.8mg/dL (3.5-7.2) Calcium Level 8.4mg/dL (8.5-10.1) Objective Assessment Leukocytosis Fever Pneumonia Gout Debility Gluteal ulcer/decub Diarrhea Plan Plan of Care check c diff ct chest, abd and pelvis d/c vanc cont zosyn and micafungin d/w daughter ALICE MATTHEW MD Oct 08, 2016 09:04
[2016-10-08] MEDS ORDERED: IOHEXOL 240 MG/ML 50ML VIAL. PO ONE (09:15)
[2016-10-08] MEDS ORDERED: IOHEXOL 300 MG/ML 75 ML VIAL IV ONE (09:15)
[2016-10-08] MEDS ORDERED: BUPIVACAINE MPF 0.25% 10 ML VIAL. IJ ONE (10:45)
[2016-10-08] MEDS ORDERED: methylPREDNISolone ACETATE 40 MG/ML VIAL. IM ONE ×2 (10:45)
[2016-10-08] MEDS ORDERED: ASPIRIN 81 MG TAB.CHEW PO SCH (11:30)
--- NOTE | 2016-10-08 11:30 | PDOC ---
CARDIO Progress Notes Date and Time Date of Service 10/08/16 Time of Evaluation 1030 Subjective Subjective: No Chest Pain, No shortness of breath, No Palpitations, Other (LLE pain) Comments: daughter and granddaughter at bedside. Vitals Vitals Vital Signs Date Time Temp Pulse Resp B/P Pulse Ox O2 Delivery O2 Flow Rate FiO2 10/08/16 09:27 92 Nasal Cannula 5.0 10/08/16 03:23 96.3 124 20 100/48 96.3 Weight Weight [ ] Input and Output Intake and Output Intake and Output 10/08/16 07:00 Intake Total 4172 ml Output Total 2000 ml Balance 2172 ml Intake Oral 0 ml IV Total 350 ml Tube Feeding 1459 ml Blood Product IV Normal Saline Flush 1138 ml Other 1225 ml Output Urine Total 2000 ml # Bowel Movements 1 Laboratory Labs Laboratory Tests Test 10/08/16 03:50 White Blood Count 21.6x10^3/uL (4.0-11.0) Red Blood Count 3.67x10^6/uL (4.30-5.70) Hemoglobin 11.1g/dL (13.0-17.5) Hematocrit 33.6% (39.0-53.0) Mean Corpuscular Volume 92fL (79-100) Mean Corpuscular Hemoglobin 30pg (25-35) Mean Corpuscular Hemoglobin Concent 33g/dL (31-37) Red Cell Distribution Width 14.2% (11.5-14.5) Platelet Count 178x10^3/uL (140-400) Neutrophils (%) (Auto) 87% (31-73) Lymphocytes (%) (Auto) 5% (24-48) Monocytes (%) (Auto) 6% (0-9) Eosinophils (%) (Auto) 2% (0-3) Basophils (%) (Auto) 0% (0-3) Neutrophils # (Auto) 18.7x10^3uL (1.8-7.7) Lymphocytes # (Auto) 1.0x10^3/uL (1.0-4.8) Monocytes # (Auto) 1.3x10^3/uL (0.0-1.1) Eosinophils # (Auto) 0.5x10^3/uL (0.0-0.7) Basophils # (Auto) 0.1x10^3/uL (0.0-0.2) Sodium Level 135mmol/L (136-145) Potassium Level 3.5mmol/L (3.5-5.1) Chloride Level 97mmol/L (98-107) Carbon Dioxide Level 37mmol/L (21-32) Anion Gap 1 (6-14) Blood Urea Nitrogen 20mg/dL (8-26) Creatinine 0.8mg/dL (0.7-1.3) Estimated GFR (Cockcroft-Gault) 94.2 Glucose Level 109mg/dL (70-99) Uric Acid 3.8mg/dL (3.5-7.2) Calcium Level 8.4mg/dL (8.5-10.1) Microbiology Micro Microbiology 10/05/16 Blood Culture - Preliminary, Resulted NO GROWTH AFTER 2 DAYS 10/05/16 Urine Culture - Preliminary, Resulted 10/05/16 Urine Culture Result 1 (JABARI) - Preliminary, Resulted Physical Exam HEENT: Neck Supple W Full Motion Chest: Symmetric LUNGS: Clear to Auscultation, Other (diminished bases ) Heart: S1S2, RRR, murmurs (2/6 systolic murmur ), other (tele SR-ST) Abdomen: Soft N/T, Other (PEG tube in palce) Extremities: 2+ Dorsalis Pedis, No Edema, No Calf Tenderness Neurology: alert, oriented, follow commands, confused (intermittent ) Assessment Assessment 1. Acute on chronic respiratory failure Multifactorial. possible PNA per pulm 2. Chronic CHF EF 50% 06/2015 per chart review. appears clinically compensated. Continue oral diuresis echo report not received; will obtain today 3. PAF episode of RVR overnight. Responded well to IV dig. presently maintaining SR. continue ASA for stroke prevention. No OAC candidate with recent, frequent falls. BP sub-optimal; will start digoxin for rate control. 4. CAD s/p remote CABG Follows with MD cardiology stable. CP free secondary prevention as able. obtain records 5. Hypertension low-normotensive no BB or VILLA with hypotension 6. Hyperlipidemia statin 7. Encephalopathy 8. Leukocytosis ID consulted LOPEZ OTOOLE APRN Oct 08, 2016 11:30
--- NOTE | 2016-10-08 11:59 | PDOC ---
PROGRESS NOTES Chief Complaint Chief Complaint 1. AMS, metabolic encephalopathy likely , 2/2 to 2 or sedative meds in rehab 2. acute resp failure with hypoxia, 2/2 HCAP? 3. sepsis with HCAP? 4. h/o CAD with CABG 5. CHF, ef 50% . 6 htn 7. hld 8 BPH sinclair 9. dysphasia with PEG 10. 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 recent hallucination 12. h/o CVA wo weakness 13. gout, OA 14. RAPID Afib, new 15. orthostatic hypotension plan: given pt was recently in another hosp for 3 weeks , got records pulm, neuro, card consulted 2. dc vanco, add micafungin and zosyn, ID consult, carmona CT 10/08, check cdiff 3. lasix iv x1 as per pulm cont home po lasix 4. hold trazodone, add NSADIS for gout, low dose lortab bipap prn resume PEG feeding, get swallow eval dvt ppx ptot dig 125mcg daily as per card head CT neg. EEG , MRI done check uric acid, neg dc flomax, add finesteride. dr. Mason consult, will do knee injection for OA History of Present Illness History of Present Illness mild cough, off bipap waking up since 10/06, baseline now, severe hearing problem, answer questions c/p chronic gout joint pain, OA fever tachycardia last night, got dig one time diarrhea 10/08 Vitals Vitals Vital Signs Date Time Temp Pulse Resp B/P Pulse Ox O2 Delivery O2 Flow Rate FiO2 10/08/16 09:27 92 Nasal Cannula 5.0 10/08/16 03:23 96.3 124 20 100/48 96.3 Physical Exam General: Alert, Cooperative, No acute distress, Other (oriented to person and place) Heart: Regular rate, Normal S1, Normal S2, Other (2/6 systolic murmur ) Lungs: Clear Abdomen: Soft, Other (PEG tube in place) Extremities: Normal pulses, Other (1+ LE edema ) Skin: No breakdown, No significant lesion Labs LABS Laboratory Tests Test 10/08/16 03:50 White Blood Count 21.6x10^3/uL (4.0-11.0) Red Blood Count 3.67x10^6/uL (4.30-5.70) Hemoglobin 11.1g/dL (13.0-17.5) Hematocrit 33.6% (39.0-53.0) Mean Corpuscular Volume 92fL (79-100) Mean Corpuscular Hemoglobin 30pg (25-35) Mean Corpuscular Hemoglobin Concent 33g/dL (31-37) Red Cell Distribution Width 14.2% (11.5-14.5) Platelet Count 178x10^3/uL (140-400) Neutrophils (%) (Auto) 87% (31-73) Lymphocytes (%) (Auto) 5% (24-48) Monocytes (%) (Auto) 6% (0-9) Eosinophils (%) (Auto) 2% (0-3) Basophils (%) (Auto) 0% (0-3) Neutrophils # (Auto) 18.7x10^3uL (1.8-7.7) Lymphocytes # (Auto) 1.0x10^3/uL (1.0-4.8) Monocytes # (Auto) 1.3x10^3/uL (0.0-1.1) Eosinophils # (Auto) 0.5x10^3/uL (0.0-0.7) Basophils # (Auto) 0.1x10^3/uL (0.0-0.2) Sodium Level 135mmol/L (136-145) Potassium Level 3.5mmol/L (3.5-5.1) Chloride Level 97mmol/L (98-107) Carbon Dioxide Level 37mmol/L (21-32) Anion Gap 1 (6-14) Blood Urea Nitrogen 20mg/dL (8-26) Creatinine 0.8mg/dL (0.7-1.3) Estimated GFR (Cockcroft-Gault) 94.2 Glucose Level 109mg/dL (70-99) Uric Acid 3.8mg/dL (3.5-7.2) Calcium Level 8.4mg/dL (8.5-10.1) Procalcitonin 1.63ng/mL (0.00-0.10) Review of Systems Review of Systems no chills, sob or chest pain Assessment and Plan Assessmemt and Plan Problems Medical Problems: (1) Altered mental status Status: Acute (2) Hospital acquired PNA Status: Acute Problems: Comment Review of Relevant I have reviewed the following items cassidy (where applicable) has been applied. Labs Laboratory Tests Test 10/07/16 03:00 10/07/16 11:15 10/08/16 03:50 White Blood Count 15.9x10^3/uL (4.0-11.0) 21.6x10^3/uL (4.0-11.0) Red Blood Count 3.74x10^6/uL (4.30-5.70) 3.67x10^6/uL (4.30-5.70) Hemoglobin 11.6g/dL (13.0-17.5) 11.1g/dL (13.0-17.5) Hematocrit 34.2% (39.0-53.0) 33.6% (39.0-53.0) Mean Corpuscular Volume 91fL (79-100) 92fL (79-100) Mean Corpuscular Hemoglobin 31pg (25-35) 30pg (25-35) Mean Corpuscular Hemoglobin Concent 34g/dL (31-37) 33g/dL (31-37) Red Cell Distribution Width 14.5% (11.5-14.5) 14.2% (11.5-14.5) Platelet Count 174x10^3/uL (140-400) 178x10^3/uL (140-400) Neutrophils (%) (Auto) 85% (31-73) 87% (31-73) Lymphocytes (%) (Auto) 4% (24-48) 5% (24-48) Monocytes (%) (Auto) 8% (0-9) 6% (0-9) Eosinophils (%) (Auto) 3% (0-3) 2% (0-3) Basophils (%) (Auto) 0% (0-3) 0% (0-3) Neutrophils # (Auto) 13.4x10^3uL (1.8-7.7) 18.7x10^3uL (1.8-7.7) Lymphocytes # (Auto) 0.6x10^3/uL (1.0-4.8) 1.0x10^3/uL (1.0-4.8) Monocytes # (Auto) 1.3x10^3/uL (0.0-1.1) 1.3x10^3/uL (0.0-1.1) Eosinophils # (Auto) 0.5x10^3/uL (0.0-0.7) 0.5x10^3/uL (0.0-0.7) Basophils # (Auto) 0.1x10^3/uL (0.0-0.2) 0.1x10^3/uL (0.0-0.2) Sodium Level 135mmol/L (136-145) 135mmol/L (136-145) Potassium Level 3.7mmol/L (3.5-5.1) 3.5mmol/L (3.5-5.1) Chloride Level 97mmol/L (98-107) 97mmol/L (98-107) Carbon Dioxide Level 38mmol/L (21-32) 37mmol/L (21-32) Anion Gap 0 (6-14) 1 (6-14) Blood Urea Nitrogen 17mg/dL (8-26) 20mg/dL (8-26) Creatinine 0.8mg/dL (0.7-1.3) 0.8mg/dL (0.7-1.3) Estimated GFR (Cockcroft-Gault) 94.2 94.2 Glucose Level 132mg/dL (70-99) 109mg/dL (70-99) Calcium Level 8.4mg/dL (8.5-10.1) 8.4mg/dL (8.5-10.1) Magnesium Level 1.9mg/dL (1.8-2.4) Vancomycin Level Trough 15.3mcg/mL (10.0-20.0) Vancomycin Last Dose Date 10-07-16 Vancomycin Last Dose Time 0000 Uric Acid 3.8mg/dL (3.5-7.2) Procalcitonin 1.63ng/mL (0.00-0.10) Laboratory Tests Test 10/08/16 03:50 White Blood Count 21.6x10^3/uL (4.0-11.0) Red Blood Count 3.67x10^6/uL (4.30-5.70) Hemoglobin 11.1g/dL (13.0-17.5) Hematocrit 33.6% (39.0-53.0) Mean Corpuscular Volume 92fL (79-100) Mean Corpuscular Hemoglobin 30pg (25-35) Mean Corpuscular Hemoglobin Concent 33g/dL (31-37) Red Cell Distribution Width 14.2% (11.5-14.5) Platelet Count 178x10^3/uL (140-400) Neutrophils (%) (Auto) 87% (31-73) Lymphocytes (%) (Auto) 5% (24-48) Monocytes (%) (Auto) 6% (0-9) Eosinophils (%) (Auto) 2% (0-3) Basophils (%) (Auto) 0% (0-3) Neutrophils # (Auto) 18.7x10^3uL (1.8-7.7) Lymphocytes # (Auto) 1.0x10^3/uL (1.0-4.8) Monocytes # (Auto) 1.3x10^3/uL (0.0-1.1) Eosinophils # (Auto) 0.5x10^3/uL (0.0-0.7) Basophils # (Auto) 0.1x10^3/uL (0.0-0.2) Sodium Level 135mmol/L (136-145) Potassium Level 3.5mmol/L (3.5-5.1) Chloride Level 97mmol/L (98-107) Carbon Dioxide Level 37mmol/L (21-32) Anion Gap 1 (6-14) Blood Urea Nitrogen 20mg/dL (8-26) Creatinine 0.8mg/dL (0.7-1.3) Estimated GFR (Cockcroft-Gault) 94.2 Glucose Level 109mg/dL (70-99) Uric Acid 3.8mg/dL (3.5-7.2) Calcium Level 8.4mg/dL (8.5-10.1) Procalcitonin 1.63ng/mL (0.00-0.10) Microbiology 10/05/16 Blood Culture - Preliminary, Resulted NO GROWTH AFTER 2 DAYS 10/05/16 Urine Culture - Preliminary, Resulted 10/05/16 Urine Culture Result 1 (JABARI) - Preliminary, Resulted Medications Current Medications Albuterol/ Ipratropium (Duoneb) 3 ml 1X ONCE NEB Last administered on 22:21; Start 10/05/16 at 22:15; Stop 10/05/16 at 22:50; Status DC Ondansetron HCl 4 mg 4 mg PRN Q8HRS PRN IV NAUSEA/VOMITING; Start 10/05/16 at 23 :00; Stop 10/06/16 at 22:59; Status DC Sodium Chloride (Iv Sodium Chloride 0.9% 1000ml Bag) 1,000 ml @ 100 mls/hr Q10H IV Last administered on 10/06/16 18:59; Start 10/05/16 at 22:59; Stop at 22:58; Status DC Albuterol/ Ipratropium 3 ml 3 ml RTQID NEB Last administered on 10/07/16 07:47 ; Start 10/06/16 at 08:00; Stop 10/07/16 at 07:59; Status DC Ceftriaxone Sodium 1 gm/ Sodium Chloride 50 ml @ 100 mls/hr Q24H IV ; Start 10/06/16 at 22:00; Stop 10/06/16 at 22:00; Status DC Levofloxacin/ Dextrose (LEVAQUIN 750mg PREMIX) 150 ml @ 100 mls/hr 1X ONCE IV Last administered on 10/06/16 01:05; Start 10/05/16 at 23:30; Stop 10/06/16 at 00:59; Status DC Vancomycin HCl 1 each 1 each PRN DAILY PRN MC SEE COMMENTS Last administered on 10/07/16 14:14; Start 10/05/16 at 23:00 Ceftriaxone Sodium 50 ml @ 100 mls/hr 1X ONCE IV Last administered on 01:05; Start 10/05/16 at 23:30; Stop 10/05/16 at 23:59; Status DC Vancomycin HCl 2 gm/Sodium Chloride 500 ml @ 250 mls/hr 1X ONCE IV Last administered on 10/05/16 23:26; Start 10/06/16 at 00:00; Stop 10/06/16 at 01:59; Status DC Vancomycin HCl/ Sodium Chloride (Iv Sodium Chloride 0.9% 250ml) 250 ml @ 167 mls/hr Q12H IV Last administered on 10/08/16 01:04; Start 10/06/16 at 12:00 Vancomycin HCl 1 each 1 each 1X ONCE MC ; Start 10/07/16 at 11:30; Stop 10/07/16 at 11:31; Status DC Piperacillin Sod/ Tazobactam Sod/ Sodium Chloride (Zosyn/Iv Sodium Chloride 0.9 % 50ml) 50 ml @ 100 mls/hr Q6HRS IV Last administered on 10/06/16 11:56; Start 10/06/16 at 11:00; Stop 10/06/16 at 15:24; Status DC Piperacillin Sod/ Tazobactam Sod (Zosyn Per Pharmacy) 1 each PRN DAILY PRN MC SEE COMMENTS; Start 10/06/16 at 10:15 Aspirin (Ecotrin) 81 mg DAILY PO ; Start 10/06/16 at 11:30; Stop 10/06/16 at 11:30 ; Status DC Bisacodyl (Dulcolax Supp) 10 mg PRN DAILY PRN RC CONSTIPATION; Start 10/06/16 at 10:15 Furosemide (Lasix) 40 mg DAILY PO Last administered on 10/07/16 08:57; Start at 11:30 Guaifenesin (Mucinex) 600 mg BID PO ; Start 10/06/16 at 11:30; Stop 10/06/16 at 11 :30; Status DC Potassium Chloride (KCl Oral Soln) 10 meq DAILY PEG Last administered on 09:00; Start 10/06/16 at 11:30 Simvastatin (Zocor) 20 mg QHS PO Last administered on 10/07/16 20:51; Start 10/06/16 at 21:00 Tamsulosin HCl (Flomax) 0.4 mg DAILY PO Last administered on 10/07/16 08:58; Start 10/06/16 at 11:30; Stop 10/08/16 at 10:18; Status DC Multivitamins/ Minerals (Ocuvite Lutein) 1 cap DAILY PO Last administered on 09:00; Start 10/06/16 at 11:00 Artificial Tears (Artificial Tears) 1 drop PRN BID PRN OU DRY EYE; Start at 10:30 Aspirin (Children'S Aspirin) 81 mg DAILYWBKFT PO Last administered on 10/08/16 09:00; Start 10/06/16 at 11:30; Stop 10/08/16 at 11:31; Status DC Guaifenesin (Robitussin) 200 mg QID PO Last administered on 10/08/16 09:00; Start 10/06/16 at 11:30 Furosemide (Lasix) 40 mg 1X ONCE IVP Last administered on 10/06/16 12:01; Start 10/06/16 at 12:00; Stop 10/06/16 at 12:01; Status DC Acetaminophen (Tylenol) 650 mg PRN Q6HRS PRN PEG MILD PAIN / TEMP Last administered on 10/07/16 20:51; Start 10/06/16 at 12:15 Ondansetron HCl (Zofran) 4 mg PRN Q6HRS PRN IV NAUSEA/VOMITING; Start 10/06/16 at 12:15 Enoxaparin Sodium (Lovenox 40mg Syringe) 40 mg Q24H SQ Last administered on 10/07 13:40; Start 10/06/16 at 13:00 Nystatin 1 alejandro 1 alejandro BID TP Last administered on 10/08/16 09:00; Start 10/06/16 at 14:30 Piperacillin Sod/ Tazobactam Sod/ Sodium Chloride (Zosyn/Iv Sodium Chloride 0.9 % 100ml) 100 ml @ 200 mls/hr Q6HRS IV Last administered on 10/08/16 06:14; Start 10/06/16 at 18:00 Meloxicam (Mobic) 7.5 mg DAILY PO Last administered on 10/08/16 09:00; Start at 10:00 Acetaminophen/ Hydrocodone Bitart (Lortab 5/325) 1 tab PRN Q4HRS PRN PO PAIN MILD TO MOD Last administered on 10/08/16 07:35; Start 10/07/16 at 10:45 Furosemide (Lasix) 20 mg 1X ONCE IVP Last administered on 10/07/16 18:24; Start 10/07/16 at 12:00; Stop 10/07/16 at 12:01; Status DC Digoxin 500 mcg 500 mcg 1X ONCE IV Last administered on 10/07/16 22:38; Start 10/07/16 at 22:15; Stop 10/07/16 at 22:17; Status DC Micafungin Sodium/ Dextrose (Mycamine) 100 ml @ 100 mls/hr Q24H IV Last administered on 10/08/16 09:00; Start 10/08/16 at 09:00 Iohexol (Omnipaque 240 Mg/ml) 30 ml 1X ONCE PO Last administered on 10/08/16 11:47; Start 10/08/16 at 09:15; Stop 10/08/16 at 09:18; Status DC Iohexol (Omnipaque 300 Mg/ml) 75 ml 1X ONCE IV Last administered on 10/08/16 11:46; Start 10/08/16 at 09:15; Stop 10/08/16 at 09:18; Status DC Finasteride (Proscar) 5 mg DAILY PO ; Start 10/09/16 at 09:00 Methylprednisolone Acetate (Depo-Medrol 40mg Vial) 40 mg 1X ONCE IM ; Start 10/08/16 at 10:45; Stop 10/08/16 at 10:53; Status DC Methylprednisolone Acetate (Depo-Medrol 40mg Vial) 40 mg 1X ONCE IM ; Start 10/08/16 at 10:45; Stop 10/08/16 at 10:53; Status DC Bupivacaine HCl (Sensorcaine-Mpf 0.25%) 10 ml 1X ONCE IJ ; Start 10/08/16 at 10: 45; Stop 10/08/16 at 10:53; Status DC Digoxin (Lanoxin) 125 mcg DAILY PO ; Start 10/08/16 at 11:30 Aspirin (Children'S Aspirin) 325 mg DAILYWBKFT PO ; Start 10/08/16 at 11:30 Active Scripts Active Reported Isopto Tears (Hypromellose) 15 Ml Drops 15 Ml OP Oxycodone Hcl 10 Mg Tablet 1 Tab PO QID Ocuvite Tablet (Vit A,C & E/Lutein/Minerals) 1 Each Tablet 1 Each PO Dulcolax (Bisacodyl) 10 Mg Supp.rect 10 Mg RC PRN DAILY PRN Milk Of Magnesia (Magnesium Hydroxide) 400 Mg/5 Ml Oral.susp 400 Mg PO Simvastatin 20 Mg Tablet 1 Tab PO QHS Refresh Optive Eye Drops (Carboxymethylcellulos/Glycerin) 15 Ml Drops 1 Drop EACHEYE BID Tamsulosin Hcl 0.4 Mg Cap.er.24h 1 Cap PO DAILY Potassium Chloride Oral Liquid (Potassium Chloride) 20 Meq/15 Ml Liquid 10 Meq PEG DAILY Aspir 81 (Aspirin) 81 Mg Tablet.dr 1 Tab PO DAILY Furosemide 40 Mg Tablet 1 Tab PO DAILY Meloxicam 7.5 Mg Tablet 1 Tab PO DAILY Trazodone Hcl 50 Mg Tablet 1 Tab PO QHS Mucinex (Guaifenesin) 600 Mg Tablet.er 600 Mg PO Vitals/I & O Vital Sign - Last 24 Hours 10/07/16 10/07/16 10/07/16 10/07/16 14:58 19:00 20:00 22:38 Temp 98.1 100.6 98.1 100.6 Pulse 90 129 134 Resp 18 20 B/P 117/54 101/50 Pulse Ox 89 92 O2 Delivery Nasal Cannula Nasal Cannula Nasal Cannula O2 Flow Rate 6.0 5.0 10/07/16 10/08/16 10/08/16 23:00 03:23 09:27 Temp 97.5 96.3 97.5 96.3 Pulse 116 124 Resp 20 20 B/P 91/43 100/48 Pulse Ox 91 93 92 O2 Delivery Nasal Cannula Nasal Cannula Nasal Cannula O2 Flow Rate 5.0 Intake and Output 10/07/16 10/07/16 10/08/16 15:00 23:00 07:00 Intake Total 4172 ml Output Total 950 ml 1050 ml Balance -950 ml 3122 ml EDWARDO AMES MD Oct 08, 2016 11:59
[2016-10-08] MEDS: LACTOBACILLUS ACIDOPH & BULGAR 1 TABLET. PO SCH (12:37)
[2016-10-08] MEDS: DIGOXIN 125 MCG TABLET PO SCH (12:37)
[2016-10-08] MEDS: ENOXAPARIN 40 MG/0.4 ML DISP.SYRIN. SQ SCH (12:40)
--- NOTE | 2016-10-08 12:59 | RAD ---
EXAM: CT OF THE CHEST, ABDOMEN AND PELVIS WITH INTRAVENOUS CONTRAST. HISTORY: Fever. Pleural effusion. TECHNIQUE: Computed tomography of the chest, abdomen and pelvis was performed after the intravenous administration of 75 mL Omnipaque 300. COMPARISON: None. FINDINGS: Bone windows reveal no suspicious lesions. Mild compression deformities at the thoracolumbar junction appear chronic. There are no pathologically enlarged mediastinal or axillary lymph nodes. There are only trace pleural effusions. There is no pericardial effusion. The heart is mildly enlarged. There are changes of coronary artery bypass grafting. There is moderate atelectasis in both lung bases. An uncalcified nodule in the right upper lobe on image 25 measures only 3.5 mm and is likely benign. The liver, spleen, pancreas and gallbladder are unremarkable. There is a 13 mm cyst at the right renal lower pole. The left kidney is unremarkable. A 1 cm nodule medially in the left adrenal gland is indeterminate by CT criteria and measures 45 Hounsfield units. There is a small amount of free air under the left hemidiaphragm. A gastrostomy catheter is in place. There is a tiny amount of extraluminal gas adjacent to it. There is no surrounding inflammation. No other clear source for pneumoperitoneum is identified. There is a very large right inguinal hernia. The cecum, appendix and distal ileum are included and extending into the right hemiscrotum x 22 cm. There is no obstruction. Fluid extends throughout the colon suggesting diarrhea. The bladder is decompressed by Tinsley catheter. Benign prostatic hypertrophy is moderate. An infrarenal abdominal aortic aneurysm measures 4.1 x 3.7 cm. IMPRESSION: 1. There is a tiny amount of pneumoperitoneum under the left hemidiaphragm. This may be secondary to instrumentation such as the gastrostomy catheter. No other site of perforation is identified and no inflammatory changes seen. Correlate clinically. 2. Very large right inguinal hernia containing the cecum and terminal ileum. No obstruction. 3. 4.1 cm infrarenal abdominal aortic aneurysm. Ongoing follow-up is recommended. 4. Bilateral lower lobe atelectasis. Superimposed pneumonia cannot be excluded. There is only trace pleural fluid. 5. Mild cardiomegaly. 6. A 3.5 right upper lobe nodule is likely benign but this small size. A follow-up could be considered in one year if there are strong risk factors. 7. A 1 cm indeterminate left adrenal nodule is likely a benign adenoma in the absence of known malignancy. 8. Fluid throughout the colon. Correlate for diarrhea. *One or more of the following individualized dose reduction techniques were utilized for this examination: 1. Automated exposure control. 2. Adjustment of the mA and/or kV according to patient size. 3. Use of iterative reconstruction technique.
--- NOTE | 2016-10-08 14:58 | PDOC ---
PROGRESS NOTES Assessment Assessment Metabolic encephalopathy. Hypoxia event, SO2 80s% Respiratory distress/failure. Pneumonia, LL Tachycardia Leukocytosis Generalized weakness. CAD CHF HTN HLD Aortic aneurysm 4 cm, has been the same size for 20 years per family. No evidence of acute CVA this time. RECOMMENDATIONS/PLAN: Treat UTI Treat medical diseases. May consult Vascular Surgery. OT/PT Discussed with his grand-daughter at bedside on a daily basis. Brain MRI w/o contrast: No acute findings. EEG on 10/07: moderate encephalopathy. HISTORY OF THE PRESENT ILLNESS: 76-y-old male patient with above medical diseases developed symptoms of SOB, difficult breathing, altered mental status, and other medical symptoms. Neurology was called for consultation due to MS changes. No focalized motor or sensory deficits reported. He still has persistent mental status changes on 10/07. PAST MEDICAL HISTORY: Please see above. PAST SURGERY HISTORY: PEG placement. ALLERGY: Reviewed. MEDICATIONS: Refer to [facility] FAMILY HISTORY: Non contributory. SOCIAL HISTORY: Lives at home. Denies current substances and illicit drug use. REVIEW OF SYSTEMS: Constitutional: No malnutrition, weight loss, cachexia. Head: No current traumatic brain or head injury. Skin: No edema, or rash. Ear: No infection, tinnitus. Eyes: No vision loss or color blindness. Nose: No bleeding or purulent discharges. Hearing: Hearing decrease. Neck: No injury. Cardiac: CAD, HTN, HLD. Pulmonary: No pneumonia, COPD. GI: No GI ulcer, GI bleeding, GERD. Urinary/genital: UTI. Endocrinologic: No cousin face, craniofacial dysmorphism, polydactyly Skeletomuscular: Generalized weakness. Neurological: see HP. Psychiatric: Denies drug use/abuse. Otherwise, not [id number] review of systems. PHYSICAL EXAMINATION: General appearance is in subacute distress. HEENT: Normocephalic and nontraumatic. Eyes, nose, ears, and throat are unremarkable. Neck is supple. No lymphadenopathy. No crepitus. Cardiovascular: S1, S2, regular rate and rhythm. Pulmonary: Clear to auscultation bilaterally. Abdomen: Bowel sounds are positive. Extremities: No rash, lesions, or edema. No restriction of range of motion NEUROLOGICAL EXAMINATION: Sleepiness but arousable. Oriented to place and person but not accurate to time. PERRL. EOMI. CN: no focal findings. Muscle tone: within normal. Muscle strength: 4 DTR: 2- Plantar reflex: Flexor response bilaterally Gait: not examined in bed. Sensory exam: no abnormal findings. No acute cerebellar signs elicited. F-T-N test not performed.. Objective Objective Vital Signs Date Time Temp Pulse Resp B/P Pulse Ox O2 Delivery O2 Flow Rate FiO2 10/08/16 12:37 101 10/08/16 11:00 97.9 18 112/49 95 Nasal Cannula 97.9 10/08/16 09:27 5.0 Intake and Output 10/08/16 07:00 Intake Total 4172 ml Output Total 2000 ml Balance 2172 ml Intake Oral 0 ml IV Total 350 ml Tube Feeding 1459 ml Blood Product IV Normal Saline Flush 1138 ml Other 1225 ml Output Urine Total 2000 ml # Bowel Movements 1 Vitals Signs Vitals VS - Last 72 Hours, by Label Date Time Temp Pulse Resp B/P Pulse Ox O2 Delivery O2 Flow Rate FiO2 10/08/16 12:37 101 10/08/16 11:00 97.9 92 18 112/49 95 Nasal Cannula 97.9 10/08/16 09:27 92 Nasal Cannula 5.0 10/08/16 08:35 20 Nasal Cannula 5.0 10/08/16 07:00 96.7 94 20 95/38 92 Nasal Cannula 96.7 10/08/16 03:23 96.3 124 20 100/48 93 Nasal Cannula 96.3 10/07/16 23:00 97.5 116 20 91/43 91 Nasal Cannula 97.5 10/07/16 22:38 134 10/07/16 20:00 Nasal Cannula 5.0 10/07/16 19:00 100.6 129 20 101/50 92 Nasal Cannula 100.6 10/07/16 14:58 98.1 90 18 117/54 89 Nasal Cannula 6.0 98.1 10/07/16 10:17 98.2 99 18 104/44 90 Nasal Cannula 5.0 98.2 10/07/16 08:00 Nasal Cannula 5.0 10/07/16 07:54 90 Nasal Cannula 5.0 10/07/16 07:35 99.9 97 18 113/48 90 Nasal Cannula 5.0 99.9 Laboratory Laboratory Laboratory Tests Test 10/08/16 03:50 White Blood Count 21.6x10^3/uL (4.0-11.0) Red Blood Count 3.67x10^6/uL (4.30-5.70) Hemoglobin 11.1g/dL (13.0-17.5) Hematocrit 33.6% (39.0-53.0) Mean Corpuscular Volume 92fL (79-100) Mean Corpuscular Hemoglobin 30pg (25-35) Mean Corpuscular Hemoglobin Concent 33g/dL (31-37) Red Cell Distribution Width 14.2% (11.5-14.5) Platelet Count 178x10^3/uL (140-400) Neutrophils (%) (Auto) 87% (31-73) Lymphocytes (%) (Auto) 5% (24-48) Monocytes (%) (Auto) 6% (0-9) Eosinophils (%) (Auto) 2% (0-3) Basophils (%) (Auto) 0% (0-3) Neutrophils # (Auto) 18.7x10^3uL (1.8-7.7) Lymphocytes # (Auto) 1.0x10^3/uL (1.0-4.8) Monocytes # (Auto) 1.3x10^3/uL (0.0-1.1) Eosinophils # (Auto) 0.5x10^3/uL (0.0-0.7) Basophils # (Auto) 0.1x10^3/uL (0.0-0.2) Sodium Level 135mmol/L (136-145) Potassium Level 3.5mmol/L (3.5-5.1) Chloride Level 97mmol/L (98-107) Carbon Dioxide Level 37mmol/L (21-32) Anion Gap 1 (6-14) Blood Urea Nitrogen 20mg/dL (8-26) Creatinine 0.8mg/dL (0.7-1.3) Estimated GFR (Cockcroft-Gault) 94.2 Glucose Level 109mg/dL (70-99) Uric Acid 3.8mg/dL (3.5-7.2) Calcium Level 8.4mg/dL (8.5-10.1) Procalcitonin 1.63ng/mL (0.00-0.10) Microbiology 10/05/16 Blood Culture - Preliminary, Resulted NO GROWTH AFTER 2 DAYS 10/05/16 Urine Culture - Final, Complete 10/05/16 Urine Culture Result 1 (JABARI) - Final, Complete Medication Medications Current Medications Aspirin (Children'S Aspirin) 324 mg DAILYWBKFT PO ; Start 10/08/16 at 13:30 Aspirin (Children'S Aspirin) 325 mg DAILYWBKFT PO Last administered on 12:38; Start 10/08/16 at 11:30; Stop 10/08/16 at 13:30; Status DC Bupivacaine HCl (Sensorcaine-Mpf 0.25%) 10 ml 1X ONCE IJ ; Start 10/08/16 at 10: 45; Stop 10/08/16 at 10:53; Status DC Digoxin (Lanoxin) 125 mcg DAILY PO Last administered on 10/08/16 12:37; Start 10/08/16 at 11:30 Digoxin 500 mcg 500 mcg 1X ONCE IV Last administered on 10/07/16 22:38; Start 10/07/16 at 22:15; Stop 10/07/16 at 22:17; Status DC Finasteride (Proscar) 5 mg DAILY PO ; Start 10/09/16 at 09:00 Iohexol (Omnipaque 240 Mg/ml) 30 ml 1X ONCE PO Last administered on 10/08/16 11:47; Start 10/08/16 at 09:15; Stop 10/08/16 at 09:18; Status DC Iohexol (Omnipaque 300 Mg/ml) 75 ml 1X ONCE IV Last administered on 10/08/16 11:46; Start 10/08/16 at 09:15; Stop 10/08/16 at 09:18; Status DC Lactobacillus Acidophilus (Bacid, Danielle-Bid) 1 tab DAILY PO Last administered on 10/08/16 12:37; Start 10/08/16 at 13:00 Methylprednisolone Acetate (Depo-Medrol 40mg Vial) 40 mg 1X ONCE IM ; Start 10/08/16 at 10:45; Stop 10/08/16 at 10:53; Status DC Methylprednisolone Acetate (Depo-Medrol 40mg Vial) 40 mg 1X ONCE IM ; Start 10/08/16 at 10:45; Stop 10/08/16 at 10:53; Status DC Micafungin Sodium/ Dextrose (Mycamine) 100 ml @ 100 mls/hr Q24H IV Last administered on 3/9/17at 09:00; Start 10/08/16 at 09:00 Comment Review of Relevant I have reviewed the following items cassidy (where applicable) has been applied. HUMA GODWIN MD Oct 08, 2016 14:58
--- NOTE | 2016-10-08 16:59 | RAD ---
EXAM: Left ankle 3 views. HISTORY: Left ankle pain COMPARISON: None. FINDINGS: Three views of the left ankle are obtained. No fractures are identified. There is at least mild mortise osteoarthritis laterally. Joint spaces are maintained. Osteopenia is moderate. There is a moderate posterior calcaneal spur. Tarsometatarsal an subtalar osteoarthritis appears moderate. Soft tissue swelling is noted. IMPRESSION: 1. No fracture. 2. Moderate subtalar and tarsometatarsal osteoarthritis. Mild ankle.
--- NOTE | 2016-10-08 17:53 | EEG ---
DATE OF SERVICE: 10/07/2016 OBJECTIVE: This is a 76-year-old male patient with history of persistent mental status changes. EEG was requested to evaluate cerebral activity and help rule out subclinical seizures. METHODS: Twenty electrodes were applied according to the international 10-20 electrode placement system. EKG monitoring, hyperventilation, intermittent photic stimulation, monopolar and bipolar montages are routinely utilized. The record was obtained on a digital system with video monitoring. FINDINGS: 1. Background: The patient was recorded in the sleepiness state. No fully awake, drowsy and sleep differentiation. The posterior dominant rhythm of 6-7 hertz is noted but he overall background rhythm is with superimposed slowing in theta and delta frequencies. 2. Abnormalities: No specific epileptiform discharge or electrographic seizure is seen. No focal or diffused slowing. 3. Activation: Hyperventilation was not performed because the patient was unable to follow the commands. Intermittent photic stimulation was performed with photic driving. No specific epileptiform discharge or electrographic seizure induced. IMPRESSION: This EEG is an abnormal study for the sleepiness state. No clear awake and sleep differentiation. The posterior dominant rhythm of 6-7 hertz is slow for age. There is a superimposed slowing in theta and delta frequencies throughout the entire recording. No focal, lateralizing, specific epileptiform discharge or electrographic seizure is seen. This pattern of EEG may suggest diffuse encephalopathy. HUMA GODWIN MD DR: ALAN/fabio JOB#: [id number] / [id number] KAYLAH
--- NOTE | 2016-10-08 18:03 | CARD ---
APPROVED REPORT EXAM: Two-dimensional and M-mode echocardiogram with Doppler and color Doppler. Other Information Quality : Technically Limited Rhythm : NSR with PVCsTechnically limited study due to postioning. INDICATION Congestive Heart Failure 2D DIMENSIONS Left Atrium(2D)3.7 (1.6-4.0cm)IVSd0.9 (0.7-1.1cm) Aortic Root(2D)3.2 (2.0-3.7cm)LVDd4.7 (3.9-5.9cm) LVOT Diameter2.1 (1.8-2.4cm)PWd0.9 (0.7-1.1cm) LVDs3.5 (2.5-4.0cm)FS (%) 25.9 % SV52.4 mlLVEF(%)50.8 (>50%) Aortic Valve AoV Peak Jonas.104.8cm/sAoV VTI20.1cm AO Peak GR.4.4mmHgLVOT VTI 19.28cm AO Mean GR.3mmHgAVA (VTI)3.20cm2 Mitral Valve MV E Gscckqne76.7cm/sMV E Peak Gr.4mmHg MV DECEL [id number] A Tsffjekt33.1cm/s MV E Mean Gr.2mmHgMV LAR98fs E/A Ratio1.1MV A [id number] MVA (PHT)3.79cm2 TDI Lateral E' P. V8.08cm/sMedial E' P. V5.51cm/s E/Lateral E'9.7E/Medial E'14.3 LEFT VENTRICLE The left ventricle is normal size. There is normal left ventricular wall thickness. Left ventricle sy stolic function is normal. The Ejection Fraction is 50-55%. Septal motion consistent with post-operat doug state. Tissue Doppler imaging reveals mild left ventricular diastolic dysfunction. Transmitral Do ppler flow pattern is Grade I-abnormal relaxation pattern. RIGHT VENTRICLE The right ventricle is normal size. The right ventricular systolic function is normal. ATRIA The left atrium size is normal. The right atrium size is normal. The interatrial septum is intact wit h no evidence for an atrial septal defect or patent foramen ovale as noted on 2-D or Doppler imaging. AORTIC VALVE The aortic valve is mildly to moderately sclerotic. The aortic valve is trileaflet. Doppler and Color Flow revealed no significant aortic regurgitation. There is no significant aortic valvular stenosis. MITRAL VALVE Mitral annular calcification is mild to moderate. There is no mitral valve stenosis. Doppler and [place] r Flow revealed trace mitral valve regurgitation. TRICUSPID VALVE The tricuspid valve is normal in structure and function. Doppler and Color Flow revealed trace tricus pid valve regurgitation. There is no tricuspid valve stenosis. PULMONIC VALVE The pulmonic valve is not well visualized. Doppler and Color Flow revealed no pulmonic valvular regur gitation. There is no pulmonic valvular stenosis. GREAT VESSELS The aortic root is normal in size. Pulmonary veins not well visualized. The IVC is normal in size and collapses >50% with inspiration. PERICARDIAL EFFUSION There is no evidence of significant pericardial effusion. Critical Notification Critical Value: No <Conclusion> The left ventricle is normal size. Left ventricle systolic function is normal. The Ejection Fraction is 50-55%. Tissue Doppler imaging reveals mild left ventricular diastolic dysfunction. Transmitral Doppler flow pattern is Grade I-abnormal relaxation pattern. There is no significant aortic valvular stenosis. Doppler and Color Flow revealed no significant aortic regurgitation. Doppler and Color Flow revealed trace mitral valve regurgitation. Doppler and Color Flow revealed trace tricuspid valve regurgitation.
[2016-10-08] MEDS: SIMVASTATIN 20 MG TABLET PO SCH (22:05)
[2016-10-09] MEDS: PIPERACILLIN/TAZOBACTAM 4.5 GM in IV NORMAL SALINE 100ML 100 ML IV SCH ×5 (00:25→23:59)
--- NOTE | 2016-10-09 00:45 | CONS ---
DATE OF CONSULTATION: 10/08/2016 REQUESTING PHYSICIAN: Bony Neville M.D. REASON FOR CONSULTATION: Leukocytosis and fever. HISTORY OF PRESENT ILLNESS: This is a 76-year-old gentleman, who was [facility] from [facility]. 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 The patient evidently went there with altered mental status and had fever, ended up staying for 3 , has had blood culture and lumbar puncture both were reportedly negative by the family, the daughter who gives a very good history. The patient was treated with triple antibiotics and the patient was discharged eventually, evidently still white count was not normal. The patient now here with again change in mental status, has been having white count, fever. Chest x-ray here initially had shown some atelectasis/infiltrate, which is improving now. The patient is receiving vancomycin and Zosyn and now micafungin has been added and consult has been requested. His MRI of the head is unremarkable for any acute changes. The patient is alert, awake. He is able to say that he is hurting in the shoulder or in the leg or hip, but not much other communication is possible. This patient is very weak and debilitated. Family at the bedside and all the information was obtained through the family, discussion with the daughter. Not much record available from [facility] other than the history and physical when he was admitted and the discharged medications. No nausea, vomiting noted. There is some loose stool since he has been on tube feeding has been noted. White count is progressively going up. 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 SOCIAL HISTORY: Negative for smoking, alcohol use or drug use. ALLERGIES: LISTED ALLERGIC TO ALLOPURINOL AND COLCHICINE. CURRENT MEDICATIONS: Reviewed. REVIEW OF SYSTEMS: As per HPI. All other systems reviewed through the family and little bit from the patient, as I mentioned in the HPI. PHYSICAL EXAMINATION: GENERAL: Awake gentleman who does speak some, not in distress. VITAL SIGNS: Temperature is 96.3 with the T-max 100.6, pulse 124, respirations 20, blood pressure 100/48. HEENT: Both pupils round and reacting. No conjunctival lesion, no lesion in the mouth. NECK: Supple, no JVP, no lymphadenopathy. LUNGS: Clear. HEART: S1, S2 regular. ABDOMEN: Benign. EXTREMITIES: No edema or cyanosis. SKIN: Unremarkable other than gluteal skin break, superficial skin breakdown present. NEUROLOGIC: The patient does move all the extremities, although very weak and debilitated. LABORATORY DATA: White count is 21.6, hemoglobin 11.1, platelets are 178,000. BUN and creatinine is normal. BNP was 850. MRSA screen negative. Influenza screen negative. Urine culture is showing some yeast. Blood culture is negative. Chest x-ray actually has improved. IMPRESSION: 1. Encephalopathy. 2. Pneumonia/atelectasis, which has improved. 3. Fever and leukocytosis. 4. Debility. 5. Congestive heart failure. 6. CAD. 7. Gout. RECOMMENDATION: Would continue Zosyn, micafungin, discontinue vancomycin. We will get procalcitonin level. We will get stool for C. diff., CT chest, abdomen and pelvis. Discussion with family done at that time of . Thank you very much, Dr. Randle and Dr. Neville for giving me the opportunity to participate in this patient's care. ALICE MATTHEW MD DR: ROVERTO/fabio JOB#: [id number] / [id number]
[2016-10-09 03:00] VITALS: BP 128/53
--- NOTE | 2016-10-09 04:57 | CONS ---
DATE OF CONSULTATION: LOCATION: He is in room 508. ATTENDING PHYSICIAN: Dr. Neville. The patient was seen at the request of Dr. Neville for rehab evaluation. 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 The patient lives alone, had 2 steps to manage and does not use any assistive devices to get around. He was hospitalized at the [facility] last month with pneumonia and then readmitted at [facility] for about 3 weeks for altered mental status, pneumonia. Did lumbar puncture, MRI scan of the brain, CT and EEG. Was told all was negative. He was transferred to [facility] on 10/02/2016 and was admitted to [facility] on 10/05/2016 with oxygen desaturation. He was found lethargic and sleeping for about 2-3 days and then wakes up close to his normal baseline as per his granddaughter. He was noted with oxygen saturation of 80s on room air the night before admission to Acute Care Unit. He denied any cough or shortness of breath or fever in the last week. The patient apparently had a PEG as he refused to eat. He is on BiPAP overnight. Vitals okay. The patient with known coronary artery disease, congestive heart failure, hyperlipidemia, hypertension, chronic obstructive pulmonary disease, recent pneumonia. The patient is status post coronary artery bypass graft. Family history of carcinoma. ALLERGIES: HE IS KNOWN ALLERGIC TO ALLOPURINOL AND COLCHICINE. The patient was noted with hypotension while up and he complains of pain in his knees. The patient had 2 steps to enter the house with railing. PHYSICAL EXAMINATION: Today revealed an elderly male. He is alert, oriented to time, place and person, follows commands appropriately, moves all 4 extremities voluntarily where he had 4+/5 grade muscle strength. Deep tendon reflexes are decreased overall with absent ankle jerks and he had equal perception of touch and pinprick sensation bilaterally. He had crepitus on range of motion of both knee joints with knee joint effusion. He had left olecranon bursa effusion, no tenderness to palpation over that area. He had positive Tinel sign over the ulnar nerve at the posterior aspect of both elbows. The patient is independent, rolling from side to side. I have not tested his transfers or ambulation skills at this time. He apparently had stage 2 skin lesions over his buttock. No tenderness to palpation noted over thoracic or lumbar spine area. ASSESSMENT: An elderly male with deconditioned state from his hospitalization in the last month for pneumonia. The patient was admitted for evaluation of oxygen desaturation on 10/05/2016 from half-way care unit. 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 He also presents with clinical evidence of peripheral neuropathy. The patient with known coronary artery disease, status post coronary artery bypass graft, congestive heart failure with ejection fraction of 50%, hypertension, hyperlipidemia, benign prostatic hypertrophy, dysphagia or low oral intake requiring percutaneous endoscopic gastrostomy tube placement. RECOMMENDATIONS: To consider injecting his knees to help ease his pain, to also consider getting knee support braces and to get him abdominal binder for use while up to help ease his orthostatic hypotension and thigh level ELLA hose. Dr. Neville, I appreciate asking me to participate in the care of this interesting patient. I will be glad to follow him with you as needed for the rehabilitation. RODRIGUE MAYNARD MD DR: MARILU/fabio JOB#: [id number] / [id number]
--- NOTE | 2016-10-09 06:30 | PDOC ---
Provider Note Provider Note Vascular Consult dictated Imp: asymptomatic 4.1 cm AAA Plan: Discussed with pt. F/U with AAA U/S in our Vas Lab in 6 mo. KAYLA SALAMANCA MD Oct 09, 2016 06:30
[2016-10-09 07:00] VITALS: BP 125/57
[2016-10-09] MEDS: GUAIFENESIN 200 MG/10 ML LIQUID. PO SCH ×4 (08:58→22:11)
[2016-10-09] MEDS: HYDROCODONE/APAP 5/325MG TABLET. PO PRN (08:59)
[2016-10-09] MEDS: MULTIVITAMIN EYE FORMULA CAPSULE. PO SCH ×2 (08:59→09:04)
[2016-10-09] MEDS: LACTOBACILLUS ACIDOPH & BULGAR 1 TABLET. PO SCH (09:00)
[2016-10-09] MEDS: ASPIRIN 81 MG TAB.CHEW PO SCH (09:00)
[2016-10-09] MEDS: POTASSIUM CHLORIDE 20 MEQ/15 ML ORAL LIQUID. PEG SCH (09:00)
[2016-10-09] MEDS: FINASTERIDE 5 MG TABLET PO SCH (09:01)
[2016-10-09] MEDS: DIGOXIN 125 MCG TABLET PO SCH (09:01)
[2016-10-09] MEDS: MELOXICAM 7.5 MG TABLET PO SCH (09:02)
[2016-10-09] MEDS: MICAFUNGIN 100 MG in IV DEXTROSE 5% 100 ML IV SCH (09:02)
[2016-10-09] MEDS: FUROSEMIDE 40 MG TABLET PO SCH (09:02)
[2016-10-09] MEDS: NYSTATIN TOPICAL POWDER 15GM BOTTLE. TP SCH ×2 (09:03→21:00)
--- NOTE | 2016-10-09 09:06 | PDOC ---
Infectious Disease Note Subjective Subjective pt is awake and speaking more but confused ROS ROS no n/v/d/ Vital Sign Vital Signs Vital Signs Date Time Temp Pulse Resp B/P Pulse Ox O2 Delivery O2 Flow Rate FiO2 10/09/16 03:00 98.4 91 17 128/53 95 Nasal Cannula 98.4 10/08/16 21:11 5.0 Physical Exam PHYSICAL EXAM GENERAL: NAD, Alert HEENT: PERRL, OC/OP NECK: Supple, no JVD, no LN LUNGS: Clear HEART: S1S2, no gallop, no murmur ABD: Soft, NT, no organomegaly, no rebound EXT: No edema, no cyanosis IT HELP DESK TECHNICIAN: Alert, , no focal neurologic deficit SKIN: No rash IV: ok Labs Lab Laboratory Tests Test 10/08/16 13:00 Clostridium difficile Toxin (PCR) Negative (Negative) Objective Assessment Leukocytosis Fever Pneumonia Gout Debility Gluteal ulcer/decub Diarrhea Plan Plan of Care c diff neg ct chest, abd and pelvis,, noted d/c vanc cont zosyn and micafungin d/w granddaughter ALICE MATTHEW MD Oct 09, 2016 09:06
[2016-10-09 09:23] LABS: BASO # 0.1 x10^3/uL (0.0-0.2); BASO % 0 % (0-3); EOS % 3 % (0-3); HEMATOCRIT 32.5 % (39.0-53.0); HEMOGLOBIN 10.8 g/dL (13.0-17.5); LYMPH # 0.9 x10^3/uL (1.0-4.8); LYMPH % 5 % (24-48); MEAN CORPUSCULAR HEMOGLOBIN 30 pg (25-35); MEAN CORPUSCULAR HGB CONC 33 g/dL (31-37); MEAN CORPUSCULAR VOLUME 91 fL (79-100); MONO % 5 % (0-9); NEUT % 87 % (31-73); PLATELET COUNT 187 x10^3/uL (140-400); RED BLOOD COUNT 3.58 x10^6/uL (4.30-5.70); RED CELL DISTRIBUTION WIDTH 13.9 % (11.5-14.5)
[2016-10-09 09:29] LABS: CALCIUM 8.6 mg/dL (8.5-10.1); CREATININE 0.6 mg/dL (0.7-1.3); GFR 131.3; POTASSIUM 3.5 mmol/L (3.5-5.1)
--- NOTE | 2016-10-09 10:22 | PDOC ---
PROGRESS NOTES Subjective Subjective He c/o left elbow pain. Objective Objective Vital Signs Date Time Temp Pulse Resp B/P Pulse Ox O2 Delivery O2 Flow Rate FiO2 10/09/16 09:01 91 128/53 10/09/16 08:59 20 5.0 10/09/16 08:00 Nasal Cannula 10/09/16 07:00 98.3 89 98.3 Intake and Output 10/09/16 07:00 Intake Total 1780 ml Output Total 1350 ml Balance 430 ml IV Total 550 ml Tube Feeding 630 ml Other 600 ml Output Urine Total 1350 ml # Bowel Movements 3 Physical Exam Physical Exam He is supine in bed and somewhat sleepy this AM.He had left olecranon bursa effusion.He received left ankle cam walker brace and knee braces. Assessment Assessment Problems Medical Problems: (1) Altered mental status Status: Acute (2) Hospital acquired PNA Status: Acute Plan Plan of Care To try percocet for better pain control. Comment Review of Relevant I have reviewed the following items cassidy (where applicable) has been applied. Labs Laboratory Tests Test 10/07/16 11:15 10/08/16 03:50 10/08/16 13:00 10/09/16 09:10 Vancomycin Level Trough 15.3mcg/mL (10.0-20.0) Vancomycin Last Dose Date 10-07-16 Vancomycin Last Dose Time 0000 White Blood Count 21.6x10^3/uL (4.0-11.0) 18.0x10^3/uL (4.0-11.0) Red Blood Count 3.67x10^6/uL (4.30-5.70) 3.58x10^6/uL (4.30-5.70) Hemoglobin 11.1g/dL (13.0-17.5) 10.8g/dL (13.0-17.5) Hematocrit 33.6% (39.0-53.0) 32.5% (39.0-53.0) Mean Corpuscular Volume 92fL (79-100) 91fL (79-100) Mean Corpuscular Hemoglobin 30pg (25-35) 30pg (25-35) Mean Corpuscular Hemoglobin Concent 33g/dL (31-37) 33g/dL (31-37) Red Cell Distribution Width 14.2% (11.5-14.5) 13.9% (11.5-14.5) Platelet Count 178x10^3/uL (140-400) 187x10^3/uL (140-400) Neutrophils (%) (Auto) 87% (31-73) 87% (31-73) Lymphocytes (%) (Auto) 5% (24-48) 5% (24-48) Monocytes (%) (Auto) 6% (0-9) 5% (0-9) Eosinophils (%) (Auto) 2% (0-3) 3% (0-3) Basophils (%) (Auto) 0% (0-3) 0% (0-3) Neutrophils # (Auto) 18.7x10^3uL (1.8-7.7) 15.6x10^3uL (1.8-7.7) Lymphocytes # (Auto) 1.0x10^3/uL (1.0-4.8) 0.9x10^3/uL (1.0-4.8) Monocytes # (Auto) 1.3x10^3/uL (0.0-1.1) 0.8x10^3/uL (0.0-1.1) Eosinophils # (Auto) 0.5x10^3/uL (0.0-0.7) 0.5x10^3/uL (0.0-0.7) Basophils # (Auto) 0.1x10^3/uL (0.0-0.2) 0.1x10^3/uL (0.0-0.2) Sodium Level 135mmol/L (136-145) 134mmol/L (136-145) Potassium Level 3.5mmol/L (3.5-5.1) 3.5mmol/L (3.5-5.1) Chloride Level 97mmol/L (98-107) 95mmol/L (98-107) Carbon Dioxide Level 37mmol/L (21-32) 35mmol/L (21-32) Anion Gap 1 (6-14) 4 (6-14) Blood Urea Nitrogen 20mg/dL (8-26) 16mg/dL (8-26) Creatinine 0.8mg/dL (0.7-1.3) 0.6mg/dL (0.7-1.3) Estimated GFR (Cockcroft-Gault) 94.2 131.3 Glucose Level 109mg/dL (70-99) 133mg/dL (70-99) Uric Acid 3.8mg/dL (3.5-7.2) Calcium Level 8.4mg/dL (8.5-10.1) 8.6mg/dL (8.5-10.1) Procalcitonin 1.63ng/mL (0.00-0.10) Clostridium difficile Toxin (PCR) Negative (Negative) Laboratory Tests Test 10/08/16 13:00 10/09/16 09:10 Clostridium difficile Toxin (PCR) Negative (Negative) White Blood Count 18.0x10^3/uL (4.0-11.0) Red Blood Count 3.58x10^6/uL (4.30-5.70) Hemoglobin 10.8g/dL (13.0-17.5) Hematocrit 32.5% (39.0-53.0) Mean Corpuscular Volume 91fL (79-100) Mean Corpuscular Hemoglobin 30pg (25-35) Mean Corpuscular Hemoglobin Concent 33g/dL (31-37) Red Cell Distribution Width 13.9% (11.5-14.5) Platelet Count 187x10^3/uL (140-400) Neutrophils (%) (Auto) 87% (31-73) Lymphocytes (%) (Auto) 5% (24-48) Monocytes (%) (Auto) 5% (0-9) Eosinophils (%) (Auto) 3% (0-3) Basophils (%) (Auto) 0% (0-3) Neutrophils # (Auto) 15.6x10^3uL (1.8-7.7) Lymphocytes # (Auto) 0.9x10^3/uL (1.0-4.8) Monocytes # (Auto) 0.8x10^3/uL (0.0-1.1) Eosinophils # (Auto) 0.5x10^3/uL (0.0-0.7) Basophils # (Auto) 0.1x10^3/uL (0.0-0.2) Sodium Level 134mmol/L (136-145) Potassium Level 3.5mmol/L (3.5-5.1) Chloride Level 95mmol/L (98-107) Carbon Dioxide Level 35mmol/L (21-32) Anion Gap 4 (6-14) Blood Urea Nitrogen 16mg/dL (8-26) Creatinine 0.6mg/dL (0.7-1.3) Estimated GFR (Cockcroft-Gault) 131.3 Glucose Level 133mg/dL (70-99) Calcium Level 8.6mg/dL (8.5-10.1) Microbiology 10/05/16 Blood Culture - Preliminary, Resulted NO GROWTH AFTER 3 DAYS 10/05/16 Urine Culture - Final, Complete 10/05/16 Urine Culture Result 1 (JABARI) - Final, Complete Medications Current Medications Albuterol/ Ipratropium (Duoneb) 3 ml 1X ONCE NEB Last administered on 22:21; Start 10/05/16 at 22:15; Stop 10/05/16 at 22:50; Status DC Ondansetron HCl 4 mg 4 mg PRN Q8HRS PRN IV NAUSEA/VOMITING; Start 10/05/16 at 23 :00; Stop 10/06/16 at 22:59; Status DC Sodium Chloride (Iv Sodium Chloride 0.9% 1000ml Bag) 1,000 ml @ 100 mls/hr Q10H IV Last administered on 10/06/16 18:59; Start 10/05/16 at 22:59; Stop at 22:58; Status DC Albuterol/ Ipratropium 3 ml 3 ml RTQID NEB Last administered on 10/07/16 07:47 ; Start 10/06/16 at 08:00; Stop 10/07/16 at 07:59; Status DC Ceftriaxone Sodium 1 gm/ Sodium Chloride 50 ml @ 100 mls/hr Q24H IV ; Start 10/06/16 at 22:00; Stop 10/06/16 at 22:00; Status DC Levofloxacin/ Dextrose (LEVAQUIN 750mg PREMIX) 150 ml @ 100 mls/hr 1X ONCE IV Last administered on 10/06/16 01:05; Start 10/05/16 at 23:30; Stop 10/06/16 at 00:59; Status DC Vancomycin HCl 1 each 1 each PRN DAILY PRN MC SEE COMMENTS Last administered on 10/07/16 14:14; Start 10/05/16 at 23:00; Stop 10/08/16 at 18:52; Status DC Ceftriaxone Sodium 50 ml @ 100 mls/hr 1X ONCE IV Last administered on 01:05; Start 10/05/16 at 23:30; Stop 10/05/16 at 23:59; Status DC Vancomycin HCl 2 gm/Sodium Chloride 500 ml @ 250 mls/hr 1X ONCE IV Last administered on 10/05/16 23:26; Start 10/06/16 at 00:00; Stop 10/06/16 at 01:59; Status DC Vancomycin HCl/ Sodium Chloride (Iv Sodium Chloride 0.9% 250ml) 250 ml @ 167 mls/hr Q12H IV Last administered on 10/08/16 13:20; Start 10/06/16 at 12:00; Stop 10/08/16 at 18:52; Status DC Vancomycin HCl 1 each 1 each 1X ONCE MC ; Start 10/07/16 at 11:30; Stop 10/07/16 at 11:31; Status DC Piperacillin Sod/ Tazobactam Sod/ Sodium Chloride (Zosyn/Iv Sodium Chloride 0.9 % 50ml) 50 ml @ 100 mls/hr Q6HRS IV Last administered on 10/06/16 11:56; Start 10/06/16 at 11:00; Stop 10/06/16 at 15:24; Status DC Piperacillin Sod/ Tazobactam Sod (Zosyn Per Pharmacy) 1 each PRN DAILY PRN MC SEE COMMENTS; Start 10/06/16 at 10:15 Aspirin (Ecotrin) 81 mg DAILY PO ; Start 10/06/16 at 11:30; Stop 10/06/16 at 11:30 ; Status DC Bisacodyl (Dulcolax Supp) 10 mg PRN DAILY PRN RC CONSTIPATION; Start 10/06/16 at 10:15 Furosemide (Lasix) 40 mg DAILY PO Last administered on 10/09/16 09:02; Start 10/06/16 at 11:30 Guaifenesin (Mucinex) 600 mg BID PO ; Start 10/06/16 at 11:30; Stop 10/06/16 at 11 :30; Status DC Potassium Chloride (KCl Oral Soln) 10 meq DAILY PEG Last administered on 09:00; Start 10/06/16 at 11:30 Simvastatin (Zocor) 20 mg QHS PO Last administered on 10/08/16 22:05; Start 10/06/16 at 21:00 Tamsulosin HCl (Flomax) 0.4 mg DAILY PO Last administered on 10/07/16 08:58; Start 10/06/16 at 11:30; Stop 10/08/16 at 10:18; Status DC Multivitamins/ Minerals (Ocuvite Lutein) 1 cap DAILY PO Last administered on 09:04; Start 10/06/16 at 11:00 Artificial Tears (Artificial Tears) 1 drop PRN BID PRN OU DRY EYE; Start at 10:30 Aspirin (Children'S Aspirin) 81 mg DAILYWBKFT PO Last administered on 10/08/16 09:00; Start 10/06/16 at 11:30; Stop 10/08/16 at 11:31; Status DC Guaifenesin (Robitussin) 200 mg QID PO Last administered on 10/09/16 08:58; Start 10/06/16 at 11:30 Furosemide (Lasix) 40 mg 1X ONCE IVP Last administered on 10/06/16 12:01; Start 10/06/16 at 12:00; Stop 10/06/16 at 12:01; Status DC Acetaminophen (Tylenol) 650 mg PRN Q6HRS PRN PEG MILD PAIN / TEMP Last administered on 10/07/16 20:51; Start 10/06/16 at 12:15 Ondansetron HCl (Zofran) 4 mg PRN Q6HRS PRN IV NAUSEA/VOMITING; Start 10/06/16 at 12:15 Enoxaparin Sodium (Lovenox 40mg Syringe) 40 mg Q24H SQ Last administered on 10/08 12:40; Start 10/06/16 at 13:00 Nystatin 1 alejandro 1 alejandro BID TP Last administered on 10/09/16 09:03; Start at 14:30 Piperacillin Sod/ Tazobactam Sod/ Sodium Chloride (Zosyn/Iv Sodium Chloride 0.9 % 100ml) 100 ml @ 200 mls/hr Q6HRS IV Last administered on 10/09/16 05:46; Start 10/06/16 at 18:00 Meloxicam (Mobic) 7.5 mg DAILY PO Last administered on 10/09/16 09:02; Start 10/07/16 at 10:00 Acetaminophen/ Hydrocodone Bitart (Lortab 5/325) 1 tab PRN Q4HRS PRN PO PAIN MILD TO MOD Last administered on 10/09/16 08:59; Start 10/07/16 at 10:45 Furosemide (Lasix) 20 mg 1X ONCE IVP Last administered on 10/07/16 18:24; Start 10/07/16 at 12:00; Stop 10/07/16 at 12:01; Status DC Digoxin 500 mcg 500 mcg 1X ONCE IV Last administered on 10/07/16 22:38; Start 10/07/16 at 22:15; Stop 10/07/16 at 22:17; Status DC Micafungin Sodium/ Dextrose (Mycamine) 100 ml @ 100 mls/hr Q24H IV Last administered on 10/09/16 09:02; Start 10/08/16 at 09:00 Iohexol (Omnipaque 240 Mg/ml) 30 ml 1X ONCE PO Last administered on 10/08/16 11:47; Start 10/08/16 at 09:15; Stop 10/08/16 at 09:18; Status DC Iohexol (Omnipaque 300 Mg/ml) 75 ml 1X ONCE IV Last administered on 10/08/16 11:46; Start 10/08/16 at 09:15; Stop 10/08/16 at 09:18; Status DC Finasteride (Proscar) 5 mg DAILY PO Last administered on 10/09/16 09:01; Start 10/09/16 at 09:00 Methylprednisolone Acetate (Depo-Medrol 40mg Vial) 40 mg 1X ONCE IM ; Start 10/08/16 at 10:45; Stop 10/08/16 at 10:53; Status DC Methylprednisolone Acetate (Depo-Medrol 40mg Vial) 40 mg 1X ONCE IM ; Start 10/08/16 at 10:45; Stop 10/08/16 at 10:53; Status DC Bupivacaine HCl (Sensorcaine-Mpf 0.25%) 10 ml 1X ONCE IJ ; Start 10/08/16 at 10: 45; Stop 10/08/16 at 10:53; Status DC Digoxin (Lanoxin) 125 mcg DAILY PO Last administered on 10/09/16 09:01; Start 10/08/16 at 11:30 Aspirin (Children'S Aspirin) 325 mg DAILYWBKFT PO Last administered on 12:38; Start 10/08/16 at 11:30; Stop 10/08/16 at 13:30; Status DC Lactobacillus Acidophilus (Bacid, Danielle-Bid) 1 tab DAILY PO Last administered on 10/09/16 09:00; Start 10/08/16 at 13:00 Aspirin (Children'S Aspirin) 324 mg DAILYWBKFT PO Last administered on 09:00; Start 10/08/16 at 13:30 Active Scripts Active Reported Isopto Tears (Hypromellose) 15 Ml Drops 15 Ml OP Oxycodone Hcl 10 Mg Tablet 1 Tab PO QID Ocuvite Tablet (Vit A,C & E/Lutein/Minerals) 1 Each Tablet 1 Each PO Dulcolax (Bisacodyl) 10 Mg Supp.rect 10 Mg RC PRN DAILY PRN Milk Of Magnesia (Magnesium Hydroxide) 400 Mg/5 Ml Oral.susp 400 Mg PO Simvastatin 20 Mg Tablet 1 Tab PO QHS Refresh Optive Eye Drops (Carboxymethylcellulos/Glycerin) 15 Ml Drops 1 Drop EACHEYE BID Tamsulosin Hcl 0.4 Mg Cap.er.24h 1 Cap PO DAILY Potassium Chloride Oral Liquid (Potassium Chloride) 20 Meq/15 Ml Liquid 10 Meq PEG DAILY Aspir 81 (Aspirin) 81 Mg Tablet.dr 1 Tab PO DAILY Furosemide 40 Mg Tablet 1 Tab PO DAILY Meloxicam 7.5 Mg Tablet 1 Tab PO DAILY Trazodone Hcl 50 Mg Tablet 1 Tab PO QHS Mucinex (Guaifenesin) 600 Mg Tablet.er 600 Mg PO Vitals/I & O Vital Sign - Last 24 Hours 10/08/16 10/08/16 10/08/16 10/08/16 11:00 12:37 15:00 15:42 Temp 97.9 97.5 97.9 97.5 Pulse 92 101 80 Resp 18 18 20 B/P 112/49 107/48 Pulse Ox 95 95 O2 Delivery Nasal Cannula Nasal Cannula Nasal Cannula O2 Flow Rate 5.0 10/08/16 10/08/16 10/08/16 10/08/16 19:00 20:00 20:11 21:11 Temp 97.9 97.9 Pulse 82 Resp 18 B/P 128/68 Pulse Ox 99 95 98 O2 Delivery Nasal Cannula Nasal Cannula Nasal Cannula Nasal Cannula O2 Flow Rate 5.0 5.0 5.0 10/08/16 10/09/16 10/09/16 10/09/16 23:00 03:00 07:00 08:00 Temp 99.3 98.4 98.3 99.3 98.4 98.3 Pulse 63 91 86 Resp B/P 122/55 128/53 125/57 Pulse Ox 98 95 89 O2 Delivery Nasal Cannula Nasal Cannula Nasal Cannula Nasal Cannula O2 Flow Rate 5.0 10/09/16 10/09/16 08:59 09:01 Pulse 91 Resp 20 B/P 128/53 O2 Flow Rate 5.0 Intake and Output 10/08/16 10/08/16 10/09/16 15:00 23:00 07:00 Intake Total 550 ml 1230 ml Output Total 1350 ml Balance 550 ml 1230 ml -1350 ml RODRIGUE MAYNARD MD Oct 09, 2016 10:22
[2016-10-09 11:00] VITALS: BP 130/53
--- NOTE | 2016-10-09 11:50 | PDOC ---
PULMONARY PROGRESS NOTES Subjective NO SOA AWAKE, OFF BIPAP FEVER IMPROVING Vitals Vital Signs Date Time Temp Pulse Resp B/P Pulse Ox O2 Delivery O2 Flow Rate FiO2 10/09/16 11:00 98.8 84 20 130/53 88 Nasal Cannula 5.0 98.8 General: Alert, No acute distress Lungs: Clear Cardiovascular: S1 Abdomen: Soft Neuro Exam: Alert Extremities: Other (1+edema) Labs Laboratory Tests Test 10/08/16 03:50 10/08/16 13:00 10/09/16 09:10 White Blood Count 21.6x10^3/uL (4.0-11.0) 18.0x10^3/uL (4.0-11.0) Red Blood Count 3.67x10^6/uL (4.30-5.70) 3.58x10^6/uL (4.30-5.70) Hemoglobin 11.1g/dL (13.0-17.5) 10.8g/dL (13.0-17.5) Hematocrit 33.6% (39.0-53.0) 32.5% (39.0-53.0) Mean Corpuscular Volume 92fL (79-100) 91fL (79-100) Mean Corpuscular Hemoglobin 30pg (25-35) 30pg (25-35) Mean Corpuscular Hemoglobin Concent 33g/dL (31-37) 33g/dL (31-37) Red Cell Distribution Width 14.2% (11.5-14.5) 13.9% (11.5-14.5) Platelet Count 178x10^3/uL (140-400) 187x10^3/uL (140-400) Neutrophils (%) (Auto) 87% (31-73) 87% (31-73) Lymphocytes (%) (Auto) 5% (24-48) 5% (24-48) Monocytes (%) (Auto) 6% (0-9) 5% (0-9) Eosinophils (%) (Auto) 2% (0-3) 3% (0-3) Basophils (%) (Auto) 0% (0-3) 0% (0-3) Neutrophils # (Auto) 18.7x10^3uL (1.8-7.7) 15.6x10^3uL (1.8-7.7) Lymphocytes # (Auto) 1.0x10^3/uL (1.0-4.8) 0.9x10^3/uL (1.0-4.8) Monocytes # (Auto) 1.3x10^3/uL (0.0-1.1) 0.8x10^3/uL (0.0-1.1) Eosinophils # (Auto) 0.5x10^3/uL (0.0-0.7) 0.5x10^3/uL (0.0-0.7) Basophils # (Auto) 0.1x10^3/uL (0.0-0.2) 0.1x10^3/uL (0.0-0.2) Sodium Level 135mmol/L (136-145) 134mmol/L (136-145) Potassium Level 3.5mmol/L (3.5-5.1) 3.5mmol/L (3.5-5.1) Chloride Level 97mmol/L (98-107) 95mmol/L (98-107) Carbon Dioxide Level 37mmol/L (21-32) 35mmol/L (21-32) Anion Gap 1 (6-14) 4 (6-14) Blood Urea Nitrogen 20mg/dL (8-26) 16mg/dL (8-26) Creatinine 0.8mg/dL (0.7-1.3) 0.6mg/dL (0.7-1.3) Estimated GFR (Cockcroft-Gault) 94.2 131.3 Glucose Level 109mg/dL (70-99) 133mg/dL (70-99) Uric Acid 3.8mg/dL (3.5-7.2) Calcium Level 8.4mg/dL (8.5-10.1) 8.6mg/dL (8.5-10.1) Procalcitonin 1.63ng/mL (0.00-0.10) Clostridium difficile Toxin (PCR) Negative (Negative) Laboratory Tests Test 10/08/16 13:00 10/09/16 09:10 Clostridium difficile Toxin (PCR) Negative (Negative) White Blood Count 18.0x10^3/uL (4.0-11.0) Red Blood Count 3.58x10^6/uL (4.30-5.70) Hemoglobin 10.8g/dL (13.0-17.5) Hematocrit 32.5% (39.0-53.0) Mean Corpuscular Volume 91fL (79-100) Mean Corpuscular Hemoglobin 30pg (25-35) Mean Corpuscular Hemoglobin Concent 33g/dL (31-37) Red Cell Distribution Width 13.9% (11.5-14.5) Platelet Count 187x10^3/uL (140-400) Neutrophils (%) (Auto) 87% (31-73) Lymphocytes (%) (Auto) 5% (24-48) Monocytes (%) (Auto) 5% (0-9) Eosinophils (%) (Auto) 3% (0-3) Basophils (%) (Auto) 0% (0-3) Neutrophils # (Auto) 15.6x10^3uL (1.8-7.7) Lymphocytes # (Auto) 0.9x10^3/uL (1.0-4.8) Monocytes # (Auto) 0.8x10^3/uL (0.0-1.1) Eosinophils # (Auto) 0.5x10^3/uL (0.0-0.7) Basophils # (Auto) 0.1x10^3/uL (0.0-0.2) Sodium Level 134mmol/L (136-145) Potassium Level 3.5mmol/L (3.5-5.1) Chloride Level 95mmol/L (98-107) Carbon Dioxide Level 35mmol/L (21-32) Anion Gap 4 (6-14) Blood Urea Nitrogen 16mg/dL (8-26) Creatinine 0.6mg/dL (0.7-1.3) Estimated GFR (Cockcroft-Gault) 131.3 Glucose Level 133mg/dL (70-99) Calcium Level 8.6mg/dL (8.5-10.1) Medications Active Scripts Medications Dose Route/Sig Days Date Category Isopto Tears (Hypromellose) 15 Ml Drops 15 Ml OP 10/06/16 Reported Oxycodone Hcl 10 Mg Tablet 1 Tab PO QID 10/06/16 Reported Ocuvite Tablet (Vit A,C & E/Lutein/Minerals) 1 Each Tablet 1 Each PO 10/06/16 Reported Dulcolax (Bisacodyl) 10 Mg Supp.rect 10 Mg RC PRN DAILY PRN 10/06/16 Reported Milk Of Magnesia (Magnesium Hydroxide) 400 Mg/5 Ml Oral.susp 400 Mg PO 10/06/16 Reported Simvastatin 20 Mg Tablet 1 Tab PO QHS 10/06/16 Reported Refresh Optive Eye Drops (Carboxymethylcellulos/Glycerin) 15 Ml Drops 1 Drop EACHEYE BID 10/06/16 Reported Tamsulosin Hcl 0.4 Mg Cap.er.24h 1 Cap PO DAILY 10/06/16 Reported Potassium Chloride Oral Liquid (Potassium Chloride) 20 Meq/15 Ml Liquid 10 Meq PEG DAILY 10/06/16 Reported Aspir 81 (Aspirin) 81 Mg Tablet.dr 1 Tab PO DAILY 10/06/16 Reported Furosemide 40 Mg Tablet 1 Tab PO DAILY 10/06/16 Reported Meloxicam 7.5 Mg Tablet 1 Tab PO DAILY 10/06/16 Reported Trazodone Hcl 50 Mg Tablet 1 Tab PO QHS 10/06/16 Reported Mucinex (Guaifenesin) 600 Mg Tablet.er 600 Mg PO 10/06/16 Reported Impression . 1. Acute hypoxic respiratory failure, I suspect related to left basilar pneumonia; New fever 10/08 despite improving CXR. ID consulted. Probably related to UTI with yeast 2. Questionable mild chronic obstructive pulmonary disease. 3. Mild hyponatremia. Could be dilutional. 4. Abnormal chest x-ray with mild cardiomegaly and volume loss, left lower lobe. Possible left lower lobe pneumonia, cannot exclude the possibility of a small effusion related to mild congestive heart failure. 5. History of coronary artery disease. 6. History of chronic percutaneous endoscopic gastrostomy tube. He uses enteral nutrition as well as oral nutrition. According to daughter, he is a picky eater, so he does not meet his nutritional needs by oral intake only. 7. Leukocytosis, new fever Plan . 1. We will gradually wean the FiO2. 2. Ct chest with mild basal atelectasis 3. Continue broad-spectrum antibiotics per ID , fever and WBC improving 4. Follow chest x-ray.10/08 with improving LLL volume loss 5. Nebulizer treatments as scheduled. 6. ct chest,abd/pelvis report reviewed. Pneumoperitoneum ? due to PEG, d/w Dr Neville. consider GI/ surgery eval 7. d/w MARÍA Wooten MD Oct 09, 2016 11:50
--- NOTE | 2016-10-09 12:16 | PDOC2 ---
DON NAIR DISTRICT MANAGER 10/09/16 1215: CONSULT Date of Consult Date of Consult DATE: 10/09/16 TIME: 12:01 Reason for Consult Reason for Consult: free air on CT Referring Physician Referring Physician: Dr Neville Identification/Chief Complaint Chief Complaint altered LOC Source Source: Caregiver, Chart review History of Present Illness Reason for Visit: Per records admitted with altered LOC and difficulty breathing. His granddaughter is present. Pneumonia 2 months ago resulted in a significant decline in his function. He was admitted to a [facility] 3 weeks ago for ongoing pneumonia and altered mental status.. 1 week ago had a peg tube placed endoscopically for failure to thrive. He discharged last Wednesday and was at rehab when symptoms started again prompting his admission here He denies abdominal pain, tolerating his TFs Past Medical History Cardiovascular: CAD, CHF, HTN, Hyperlipidemia Pulmonary: Pneumonia, Other (lung disease ) CENTRAL NERVOUS SYSTEM: Other (cognitive impairment ) GI: No pertinent hx Psych: Anxiety Musculoskeletal: Osteoarthritis Rheumatologic: No pertinent hx Infectious disease: No pertinent hx ENT: No pertinent hx Renal/: No pertinent hx Endocrine: No pertinent hx Dermatology: No pertinent hx Past Surgical History Past Surgical History: Other (PEG placement ) Family History Family History: Cancer Social History Quit ALCOHOL: none Drugs: None Lives: with Family (presently at [facility] for rehab) Current Problem List Problem List Problems Medical Problems: (1) Altered mental status Status: Acute (2) Hospital acquired PNA Status: Acute Current Medications Current Medications Current Medications Albuterol/ Ipratropium (Duoneb) 3 ml 1X ONCE NEB Last administered on 22:21; Start 10/05/16 at 22:15; Stop 10/05/16 at 22:50; Status DC Ondansetron HCl 4 mg 4 mg PRN Q8HRS PRN IV NAUSEA/VOMITING; Start 10/05/16 at 23 :00; Stop 10/06/16 at 22:59; Status DC Sodium Chloride (Iv Sodium Chloride 0.9% 1000ml Bag) 1,000 ml @ 100 mls/hr Q10H IV Last administered on 10/06/16 18:59; Start 10/05/16 at 22:59; Stop at 22:58; Status DC Albuterol/ Ipratropium 3 ml 3 ml RTQID NEB Last administered on 10/07/16 07:47 ; Start 10/06/16 at 08:00; Stop 10/07/16 at 07:59; Status DC Ceftriaxone Sodium 1 gm/ Sodium Chloride 50 ml @ 100 mls/hr Q24H IV ; Start 10/06/16 at 22:00; Stop 10/06/16 at 22:00; Status DC Levofloxacin/ Dextrose (LEVAQUIN 750mg PREMIX) 150 ml @ 100 mls/hr 1X ONCE IV Last administered on 10/06/16 01:05; Start 10/05/16 at 23:30; Stop 10/06/16 at 00:59; Status DC Vancomycin HCl 1 each 1 each PRN DAILY PRN MC SEE COMMENTS Last administered on 10/07/16 14:14; Start 10/05/16 at 23:00; Stop 10/08/16 at 18:52; Status DC Ceftriaxone Sodium 50 ml @ 100 mls/hr 1X ONCE IV Last administered on 01:05; Start 10/05/16 at 23:30; Stop 10/05/16 at 23:59; Status DC Vancomycin HCl 2 gm/Sodium Chloride 500 ml @ 250 mls/hr 1X ONCE IV Last administered on 10/05/16 23:26; Start 10/06/16 at 00:00; Stop 10/06/16 at 01:59; Status DC Vancomycin HCl/ Sodium Chloride (Iv Sodium Chloride 0.9% 250ml) 250 ml @ 167 mls/hr Q12H IV Last administered on 10/08/16 13:20; Start 10/06/16 at 12:00; Stop 10/08/16 at 18:52; Status DC Vancomycin HCl 1 each 1 each 1X ONCE MC ; Start 10/07/16 at 11:30; Stop 10/07/16 at 11:31; Status DC Piperacillin Sod/ Tazobactam Sod/ Sodium Chloride (Zosyn/Iv Sodium Chloride 0.9 % 50ml) 50 ml @ 100 mls/hr Q6HRS IV Last administered on 10/06/16 11:56; Start 10/06/16 at 11:00; Stop 10/06/16 at 15:24; Status DC Piperacillin Sod/ Tazobactam Sod (Zosyn Per Pharmacy) 1 each PRN DAILY PRN MC SEE COMMENTS; Start 10/06/16 at 10:15 Aspirin (Ecotrin) 81 mg DAILY PO ; Start 10/06/16 at 11:30; Stop 10/06/16 at 11:30 ; Status DC Bisacodyl (Dulcolax Supp) 10 mg PRN DAILY PRN RC CONSTIPATION; Start 10/06/16 at 10:15 Furosemide (Lasix) 40 mg DAILY PO Last administered on 10/09/16 09:02; Start 10/06/16 at 11:30 Guaifenesin (Mucinex) 600 mg BID PO ; Start 10/06/16 at 11:30; Stop 10/06/16 at 11 :30; Status DC Potassium Chloride (KCl Oral Soln) 10 meq DAILY PEG Last administered on 09:00; Start 10/06/16 at 11:30 Simvastatin (Zocor) 20 mg QHS PO Last administered on 10/08/16 22:05; Start 10/06/16 at 21:00 Tamsulosin HCl (Flomax) 0.4 mg DAILY PO Last administered on 10/07/16 08:58; Start 10/06/16 at 11:30; Stop 10/08/16 at 10:18; Status DC Multivitamins/ Minerals (Ocuvite Lutein) 1 cap DAILY PO Last administered on 09:04; Start 10/06/16 at 11:00 Artificial Tears (Artificial Tears) 1 drop PRN BID PRN OU DRY EYE; Start at 10:30 Aspirin (Children'S Aspirin) 81 mg DAILYWBKFT PO Last administered on 10/08/16 09:00; Start 10/06/16 at 11:30; Stop 10/08/16 at 11:31; Status DC Guaifenesin (Robitussin) 200 mg QID PO Last administered on 10/09/16 08:58; Start 10/06/16 at 11:30 Furosemide (Lasix) 40 mg 1X ONCE IVP Last administered on 10/06/16 12:01; Start 10/06/16 at 12:00; Stop 10/06/16 at 12:01; Status DC Acetaminophen (Tylenol) 650 mg PRN Q6HRS PRN PEG MILD PAIN / TEMP Last administered on 10/07/16 20:51; Start 10/06/16 at 12:15 Ondansetron HCl (Zofran) 4 mg PRN Q6HRS PRN IV NAUSEA/VOMITING; Start 10/06/16 at 12:15 Enoxaparin Sodium (Lovenox 40mg Syringe) 40 mg Q24H SQ Last administered on 10/08 12:40; Start 10/06/16 at 13:00 Nystatin 1 alejandro 1 alejandro BID TP Last administered on 10/09/16 09:03; Start at 14:30 Piperacillin Sod/ Tazobactam Sod/ Sodium Chloride (Zosyn/Iv Sodium Chloride 0.9 % 100ml) 100 ml @ 200 mls/hr Q6HRS IV Last administered on 10/09/16 11:23; Start 10/06/16 at 18:00 Meloxicam (Mobic) 7.5 mg DAILY PO Last administered on 10/09/16 09:02; Start 10/07/16 at 10:00 Acetaminophen/ Hydrocodone Bitart (Lortab 5/325) 1 tab PRN Q4HRS PRN PO PAIN MILD TO MOD Last administered on 10/09/16 08:59; Start 10/07/16 at 10:45 Furosemide (Lasix) 20 mg 1X ONCE IVP Last administered on 10/07/16 18:24; Start 10/07/16 at 12:00; Stop 10/07/16 at 12:01; Status DC Digoxin 500 mcg 500 mcg 1X ONCE IV Last administered on 10/07/16 22:38; Start 10/07/16 at 22:15; Stop 10/07/16 at 22:17; Status DC Micafungin Sodium/ Dextrose (Mycamine) 100 ml @ 100 mls/hr Q24H IV Last administered on 10/09/16 09:02; Start 10/08/16 at 09:00 Iohexol (Omnipaque 240 Mg/ml) 30 ml 1X ONCE PO Last administered on 10/08/16 11:47; Start 10/08/16 at 09:15; Stop 10/08/16 at 09:18; Status DC Iohexol (Omnipaque 300 Mg/ml) 75 ml 1X ONCE IV Last administered on 10/08/16 11:46; Start 10/08/16 at 09:15; Stop 10/08/16 at 09:18; Status DC Finasteride (Proscar) 5 mg DAILY PO Last administered on 10/09/16 09:01; Start 10/09/16 at 09:00 Methylprednisolone Acetate (Depo-Medrol 40mg Vial) 40 mg 1X ONCE IM ; Start 10/08/16 at 10:45; Stop 10/08/16 at 10:53; Status DC Methylprednisolone Acetate (Depo-Medrol 40mg Vial) 40 mg 1X ONCE IM ; Start 10/08/16 at 10:45; Stop 10/08/16 at 10:53; Status DC Bupivacaine HCl (Sensorcaine-Mpf 0.25%) 10 ml 1X ONCE IJ ; Start 10/08/16 at 10: 45; Stop 10/08/16 at 10:53; Status DC Digoxin (Lanoxin) 125 mcg DAILY PO Last administered on 10/09/16 09:01; Start 10/08/16 at 11:30 Aspirin (Children'S Aspirin) 325 mg DAILYWBKFT PO Last administered on 12:38; Start 10/08/16 at 11:30; Stop 10/08/16 at 13:30; Status DC Lactobacillus Acidophilus (Bacid, Danielle-Bid) 1 tab DAILY PO Last administered on 10/09/16 09:00; Start 10/08/16 at 13:00 Aspirin (Children'S Aspirin) 324 mg DAILYWBKFT PO Last administered on 09:00; Start 10/08/16 at 13:30 Oxycodone/ Acetaminophen (Percocet 10/325) 1 tab PRN Q6HRS PRN PO PAIN; Start 10/09/16 at 10:30 Active Scripts Active Reported Isopto Tears (Hypromellose) 15 Ml Drops 15 Ml OP Oxycodone Hcl 10 Mg Tablet 1 Tab PO QID Ocuvite Tablet (Vit A,C & E/Lutein/Minerals) 1 Each Tablet 1 Each PO Dulcolax (Bisacodyl) 10 Mg Supp.rect 10 Mg RC PRN DAILY PRN Milk Of Magnesia (Magnesium Hydroxide) 400 Mg/5 Ml Oral.susp 400 Mg PO Simvastatin 20 Mg Tablet 1 Tab PO QHS Refresh Optive Eye Drops (Carboxymethylcellulos/Glycerin) 15 Ml Drops 1 Drop EACHEYE BID Tamsulosin Hcl 0.4 Mg Cap.er.24h 1 Cap PO DAILY Potassium Chloride Oral Liquid (Potassium Chloride) 20 Meq/15 Ml Liquid 10 Meq PEG DAILY Aspir 81 (Aspirin) 81 Mg Tablet.dr 1 Tab PO DAILY Furosemide 40 Mg Tablet 1 Tab PO DAILY Meloxicam 7.5 Mg Tablet 1 Tab PO DAILY Trazodone Hcl 50 Mg Tablet 1 Tab PO QHS Mucinex (Guaifenesin) 600 Mg Tablet.er 600 Mg PO Allergies Allergies: Coded Allergies: allopurinol (Verified Allergy, Intermediate, 10/05/16) colchicine (Verified Allergy, Intermediate, 10/05/16) ROS Review of System unable to obtain from pt due to mental status Physical Exam General: Cooperative, No acute distress Lungs: Other (diminished) Heart: Regular rate, Normal S1, Normal S2 Abdomen: Soft, No tenderness, Other (ND, peg tube in place) Extremities: No clubbing, No cyanosis Vitals VITALS Vital Signs Date Time Temp Pulse Resp B/P Pulse Ox O2 Delivery O2 Flow Rate FiO2 10/09/16 11:00 98.8 84 20 130/53 88 Nasal Cannula 5.0 98.8 Labs Labs Laboratory Tests Test 10/08/16 03:50 10/08/16 13:00 10/09/16 09:10 White Blood Count 21.6x10^3/uL (4.0-11.0) 18.0x10^3/uL (4.0-11.0) Red Blood Count 3.67x10^6/uL (4.30-5.70) 3.58x10^6/uL (4.30-5.70) Hemoglobin 11.1g/dL (13.0-17.5) 10.8g/dL (13.0-17.5) Hematocrit 33.6% (39.0-53.0) 32.5% (39.0-53.0) Mean Corpuscular Volume 92fL (79-100) 91fL (79-100) Mean Corpuscular Hemoglobin 30pg (25-35) 30pg (25-35) Mean Corpuscular Hemoglobin Concent 33g/dL (31-37) 33g/dL (31-37) Red Cell Distribution Width 14.2% (11.5-14.5) 13.9% (11.5-14.5) Platelet Count 178x10^3/uL (140-400) 187x10^3/uL (140-400) Neutrophils (%) (Auto) 87% (31-73) 87% (31-73) Lymphocytes (%) (Auto) 5% (24-48) 5% (24-48) Monocytes (%) (Auto) 6% (0-9) 5% (0-9) Eosinophils (%) (Auto) 2% (0-3) 3% (0-3) Basophils (%) (Auto) 0% (0-3) 0% (0-3) Neutrophils # (Auto) 18.7x10^3uL (1.8-7.7) 15.6x10^3uL (1.8-7.7) Lymphocytes # (Auto) 1.0x10^3/uL (1.0-4.8) 0.9x10^3/uL (1.0-4.8) Monocytes # (Auto) 1.3x10^3/uL (0.0-1.1) 0.8x10^3/uL (0.0-1.1) Eosinophils # (Auto) 0.5x10^3/uL (0.0-0.7) 0.5x10^3/uL (0.0-0.7) Basophils # (Auto) 0.1x10^3/uL (0.0-0.2) 0.1x10^3/uL (0.0-0.2) Sodium Level 135mmol/L (136-145) 134mmol/L (136-145) Potassium Level 3.5mmol/L (3.5-5.1) 3.5mmol/L (3.5-5.1) Chloride Level 97mmol/L (98-107) 95mmol/L (98-107) Carbon Dioxide Level 37mmol/L (21-32) 35mmol/L (21-32) Anion Gap 1 (6-14) 4 (6-14) Blood Urea Nitrogen 20mg/dL (8-26) 16mg/dL (8-26) Creatinine 0.8mg/dL (0.7-1.3) 0.6mg/dL (0.7-1.3) Estimated GFR (Cockcroft-Gault) 94.2 131.3 Glucose Level 109mg/dL (70-99) 133mg/dL (70-99) Uric Acid 3.8mg/dL (3.5-7.2) Calcium Level 8.4mg/dL (8.5-10.1) 8.6mg/dL (8.5-10.1) Procalcitonin 1.63ng/mL (0.00-0.10) Clostridium difficile Toxin (PCR) Negative (Negative) Laboratory Tests Test 10/08/16 13:00 10/09/16 09:10 Clostridium difficile Toxin (PCR) Negative (Negative) White Blood Count 18.0x10^3/uL (4.0-11.0) Red Blood Count 3.58x10^6/uL (4.30-5.70) Hemoglobin 10.8g/dL (13.0-17.5) Hematocrit 32.5% (39.0-53.0) Mean Corpuscular Volume 91fL (79-100) Mean Corpuscular Hemoglobin 30pg (25-35) Mean Corpuscular Hemoglobin Concent 33g/dL (31-37) Red Cell Distribution Width 13.9% (11.5-14.5) Platelet Count 187x10^3/uL (140-400) Neutrophils (%) (Auto) 87% (31-73) Lymphocytes (%) (Auto) 5% (24-48) Monocytes (%) (Auto) 5% (0-9) Eosinophils (%) (Auto) 3% (0-3) Basophils (%) (Auto) 0% (0-3) Neutrophils # (Auto) 15.6x10^3uL (1.8-7.7) Lymphocytes # (Auto) 0.9x10^3/uL (1.0-4.8) Monocytes # (Auto) 0.8x10^3/uL (0.0-1.1) Eosinophils # (Auto) 0.5x10^3/uL (0.0-0.7) Basophils # (Auto) 0.1x10^3/uL (0.0-0.2) Sodium Level 134mmol/L (136-145) Potassium Level 3.5mmol/L (3.5-5.1) Chloride Level 95mmol/L (98-107) Carbon Dioxide Level 35mmol/L (21-32) Anion Gap 4 (6-14) Blood Urea Nitrogen 16mg/dL (8-26) Creatinine 0.6mg/dL (0.7-1.3) Estimated GFR (Cockcroft-Gault) 131.3 Glucose Level 133mg/dL (70-99) Calcium Level 8.6mg/dL (8.5-10.1) Assessment/Plan Assessment/Plan Pneumonia, altered mental status recent peg (1 week ago), tiny amount of free air, from recent peg, expected no surgical needs d/w STORM Ferguson MD 10/09/162040: CONSULT Allergies Allergies: Coded Allergies: allopurinol (Verified Allergy, Intermediate, 10/05/16) colchicine (Verified Allergy, Intermediate, 10/05/16) Assessment/Plan Assessment/Plan Pt seen and examined. Agree with Ms. Nair's note Pt's outside records reviewed from [facility] abd soft, Nd, NTTP free air expected after peg large groin hernia, no obstruction, pt poor surgical candidate Thanks for consult! DON NAIR APRN Oct 09, 2016 12:15 STORM VAZ MD Oct 09, 2016 20:41
--- NOTE | 2016-10-09 13:38 | PDOC ---
PROGRESS NOTES Chief Complaint Chief Complaint 1. AMS, metabolic encephalopathy likely , 2/2 to 2 or sedative meds in rehab 2. acute resp failure with hypoxia, 2/2 HCAP? 3. sepsis with HCAP? 4. h/o CAD with CABG 5. CHF, ef 50% . 6 htn 7. hld 8 BPH sinclair 9. dysphasia with PEG recently 10. baseline mild dementia 11. recent hallucination with PNA 12. h/o CVA wo weakness 13. gout, OA 14. RAPID Afib, new 15. orthostatic hypotension 16. stable AAA 4CM plan: given pt was recently in another hosp for 3 weeks , got records pulm, neuro, card, VASCUlar, sx consulted 2. dc vanco, add micafungin and zosyn, ID consult, carmona CT 10/08, check cdiff neg 3. lasix iv x1 as per pulm cont home po lasix 4. hold trazodone, add NSADIS for gout, low dose lortab bipap prn resume PEG feeding, get swallow eval,pt failed dvt ppx ptot dig 125mcg daily as per card head CT neg. EEG , MRI done, neg check uric acid, neg dc flomax, add finesteride. dr. Mason consult, will do knee injection for OA when wbc better vascular consulted, no intervention, fu in 6months sx consult for pneumoperitonum, 2/2 PEG. no intervention talked to family at bedside. History of Present Illness History of Present Illness mild cough, off bipap. more confusion on 10/09 waking up since 10/06, baseline now, severe hearing problem, answer questions c/p chronic gout joint pain, OA fever 10/08 tachycardia last night, got dig 3 times diarrhea 10/08 Vitals Vitals Vital Signs Date Time Temp Pulse Resp B/P Pulse Ox O2 Delivery O2 Flow Rate FiO2 10/09/16 11:00 98.8 84 20 130/53 88 Nasal Cannula 5.0 98.8 Physical Exam General: Cooperative, No acute distress Heart: Regular rate, Normal S1, Normal S2 Lungs: Clear Abdomen: Soft, No tenderness, Other (ND, peg tube in place) Extremities: No clubbing, No cyanosis Skin: No breakdown, No significant lesion Labs LABS Laboratory Tests Test 10/09/16 09:10 White Blood Count 18.0x10^3/uL (4.0-11.0) Red Blood Count 3.58x10^6/uL (4.30-5.70) Hemoglobin 10.8g/dL (13.0-17.5) Hematocrit 32.5% (39.0-53.0) Mean Corpuscular Volume 91fL (79-100) Mean Corpuscular Hemoglobin 30pg (25-35) Mean Corpuscular Hemoglobin Concent 33g/dL (31-37) Red Cell Distribution Width 13.9% (11.5-14.5) Platelet Count 187x10^3/uL (140-400) Neutrophils (%) (Auto) 87% (31-73) Lymphocytes (%) (Auto) 5% (24-48) Monocytes (%) (Auto) 5% (0-9) Eosinophils (%) (Auto) 3% (0-3) Basophils (%) (Auto) 0% (0-3) Neutrophils # (Auto) 15.6x10^3uL (1.8-7.7) Lymphocytes # (Auto) 0.9x10^3/uL (1.0-4.8) Monocytes # (Auto) 0.8x10^3/uL (0.0-1.1) Eosinophils # (Auto) 0.5x10^3/uL (0.0-0.7) Basophils # (Auto) 0.1x10^3/uL (0.0-0.2) Sodium Level 134mmol/L (136-145) Potassium Level 3.5mmol/L (3.5-5.1) Chloride Level 95mmol/L (98-107) Carbon Dioxide Level 35mmol/L (21-32) Anion Gap 4 (6-14) Blood Urea Nitrogen 16mg/dL (8-26) Creatinine 0.6mg/dL (0.7-1.3) Estimated GFR (Cockcroft-Gault) 131.3 Glucose Level 133mg/dL (70-99) Calcium Level 8.6mg/dL (8.5-10.1) Review of Systems Review of Systems no fever, chills, sob or chest pain Assessment and Plan Assessmemt and Plan Problems Medical Problems: (1) Altered mental status Status: Acute (2) Hospital acquired PNA Status: Acute Problems: Comment Review of Relevant I have reviewed the following items cassidy (where applicable) has been applied. Labs Laboratory Tests Test 10/08/16 03:50 10/08/16 13:00 10/09/16 09:10 White Blood Count 21.6x10^3/uL (4.0-11.0) 18.0x10^3/uL (4.0-11.0) Red Blood Count 3.67x10^6/uL (4.30-5.70) 3.58x10^6/uL (4.30-5.70) Hemoglobin 11.1g/dL (13.0-17.5) 10.8g/dL (13.0-17.5) Hematocrit 33.6% (39.0-53.0) 32.5% (39.0-53.0) Mean Corpuscular Volume 92fL (79-100) 91fL (79-100) Mean Corpuscular Hemoglobin 30pg (25-35) 30pg (25-35) Mean Corpuscular Hemoglobin Concent 33g/dL (31-37) 33g/dL (31-37) Red Cell Distribution Width 14.2% (11.5-14.5) 13.9% (11.5-14.5) Platelet Count 178x10^3/uL (140-400) 187x10^3/uL (140-400) Neutrophils (%) (Auto) 87% (31-73) 87% (31-73) Lymphocytes (%) (Auto) 5% (24-48) 5% (24-48) Monocytes (%) (Auto) 6% (0-9) 5% (0-9) Eosinophils (%) (Auto) 2% (0-3) 3% (0-3) Basophils (%) (Auto) 0% (0-3) 0% (0-3) Neutrophils # (Auto) 18.7x10^3uL (1.8-7.7) 15.6x10^3uL (1.8-7.7) Lymphocytes # (Auto) 1.0x10^3/uL (1.0-4.8) 0.9x10^3/uL (1.0-4.8) Monocytes # (Auto) 1.3x10^3/uL (0.0-1.1) 0.8x10^3/uL (0.0-1.1) Eosinophils # (Auto) 0.5x10^3/uL (0.0-0.7) 0.5x10^3/uL (0.0-0.7) Basophils # (Auto) 0.1x10^3/uL (0.0-0.2) 0.1x10^3/uL (0.0-0.2) Sodium Level 135mmol/L (136-145) 134mmol/L (136-145) Potassium Level 3.5mmol/L (3.5-5.1) 3.5mmol/L (3.5-5.1) Chloride Level 97mmol/L (98-107) 95mmol/L (98-107) Carbon Dioxide Level 37mmol/L (21-32) 35mmol/L (21-32) Anion Gap 1 (6-14) 4 (6-14) Blood Urea Nitrogen 20mg/dL (8-26) 16mg/dL (8-26) Creatinine 0.8mg/dL (0.7-1.3) 0.6mg/dL (0.7-1.3) Estimated GFR (Cockcroft-Gault) 94.2 131.3 Glucose Level 109mg/dL (70-99) 133mg/dL (70-99) Uric Acid 3.8mg/dL (3.5-7.2) Calcium Level 8.4mg/dL (8.5-10.1) 8.6mg/dL (8.5-10.1) Procalcitonin 1.63ng/mL (0.00-0.10) Clostridium difficile Toxin (PCR) Negative (Negative) Laboratory Tests Test 10/09/16 09:10 White Blood Count 18.0x10^3/uL (4.0-11.0) Red Blood Count 3.58x10^6/uL (4.30-5.70) Hemoglobin 10.8g/dL (13.0-17.5) Hematocrit 32.5% (39.0-53.0) Mean Corpuscular Volume 91fL (79-100) Mean Corpuscular Hemoglobin 30pg (25-35) Mean Corpuscular Hemoglobin Concent 33g/dL (31-37) Red Cell Distribution Width 13.9% (11.5-14.5) Platelet Count 187x10^3/uL (140-400) Neutrophils (%) (Auto) 87% (31-73) Lymphocytes (%) (Auto) 5% (24-48) Monocytes (%) (Auto) 5% (0-9) Eosinophils (%) (Auto) 3% (0-3) Basophils (%) (Auto) 0% (0-3) Neutrophils # (Auto) 15.6x10^3uL (1.8-7.7) Lymphocytes # (Auto) 0.9x10^3/uL (1.0-4.8) Monocytes # (Auto) 0.8x10^3/uL (0.0-1.1) Eosinophils # (Auto) 0.5x10^3/uL (0.0-0.7) Basophils # (Auto) 0.1x10^3/uL (0.0-0.2) Sodium Level 134mmol/L (136-145) Potassium Level 3.5mmol/L (3.5-5.1) Chloride Level 95mmol/L (98-107) Carbon Dioxide Level 35mmol/L (21-32) Anion Gap 4 (6-14) Blood Urea Nitrogen 16mg/dL (8-26) Creatinine 0.6mg/dL (0.7-1.3) Estimated GFR (Cockcroft-Gault) 131.3 Glucose Level 133mg/dL (70-99) Calcium Level 8.6mg/dL (8.5-10.1) Microbiology 10/05/16 Blood Culture - Preliminary, Resulted NO GROWTH AFTER 3 DAYS 10/05/16 Urine Culture - Final, Complete 10/05/16 Urine Culture Result 1 (JABARI) - Final, Complete Medications Current Medications Albuterol/ Ipratropium (Duoneb) 3 ml 1X ONCE NEB Last administered on t 22:21; Start 10/05/16 at 22:15; Stop 10/05/16 at 22:50; Status DC Ondansetron HCl 4 mg 4 mg PRN Q8HRS PRN IV NAUSEA/VOMITING; Start 10/05/16 at 23 :00; Stop 10/06/16 at 22:59; Status DC Sodium Chloride (Iv Sodium Chloride 0.9% 1000ml Bag) 1,000 ml @ 100 mls/hr Q10H IV Last administered on 10/06/16 18:59; Start 10/05/16 at 22:59; Stop at 22:58; Status DC Albuterol/ Ipratropium 3 ml 3 ml RTQID NEB Last administered on 10/07/16 07:47 ; Start 10/06/16 at 08:00; Stop 10/07/16 at 07:59; Status DC Ceftriaxone Sodium 1 gm/ Sodium Chloride 50 ml @ 100 mls/hr Q24H IV ; Start 10/06/16 at 22:00; Stop 10/06/16 at 22:00; Status DC Levofloxacin/ Dextrose (LEVAQUIN 750mg PREMIX) 150 ml @ 100 mls/hr 1X ONCE IV Last administered on 10/06/16 01:05; Start 10/05/16 at 23:30; Stop 10/06/16 at 00:59; Status DC Vancomycin HCl 1 each 1 each PRN DAILY PRN MC SEE COMMENTS Last administered on 10/07/16 14:14; Start 10/05/16 at 23:00; Stop 10/08/16 at 18:52; Status DC Ceftriaxone Sodium 50 ml @ 100 mls/hr 1X ONCE IV Last administered on 01:05; Start 10/05/16 at 23:30; Stop 10/05/16 at 23:59; Status DC Vancomycin HCl 2 gm/Sodium Chloride 500 ml @ 250 mls/hr 1X ONCE IV Last administered on 10/05/16 23:26; Start 10/06/16 at 00:00; Stop 10/06/16 at 01:59; Status DC Vancomycin HCl/ Sodium Chloride (Iv Sodium Chloride 0.9% 250ml) 250 ml @ 167 mls/hr Q12H IV Last administered on 10/08/16 13:20; Start 10/06/16 at 12:00; Stop 10/08/16 at 18:52; Status DC Vancomycin HCl 1 each 1 each 1X ONCE MC ; Start 10/07/16 at 11:30; Stop 10/07/16 at 11:31; Status DC Piperacillin Sod/ Tazobactam Sod/ Sodium Chloride (Zosyn/Iv Sodium Chloride 0.9 % 50ml) 50 ml @ 100 mls/hr Q6HRS IV Last administered on 10/06/16 11:56; Start 10/06/16 at 11:00; Stop 10/06/16 at 15:24; Status DC Piperacillin Sod/ Tazobactam Sod (Zosyn Per Pharmacy) 1 each PRN DAILY PRN MC SEE COMMENTS; Start 10/06/16 at 10:15 Aspirin (Ecotrin) 81 mg DAILY PO ; Start 10/06/16 at 11:30; Stop 10/06/16 at 11:30 ; Status DC Bisacodyl (Dulcolax Supp) 10 mg PRN DAILY PRN RC CONSTIPATION; Start 10/06/16 at 10:15 Furosemide (Lasix) 40 mg DAILY PO Last administered on 10/09/16 09:02; Start 10/06/16 at 11:30 Guaifenesin (Mucinex) 600 mg BID PO ; Start 10/06/16 at 11:30; Stop 10/06/16 at 11 :30; Status DC Potassium Chloride (KCl Oral Soln) 10 meq DAILY PEG Last administered on 09:00; Start 10/06/16 at 11:30 Simvastatin (Zocor) 20 mg QHS PO Last administered on 10/08/16 22:05; Start 10/06/16 at 21:00 Tamsulosin HCl (Flomax) 0.4 mg DAILY PO Last administered on 10/07/16 08:58; Start 10/06/16 at 11:30; Stop 10/08/16 at 10:18; Status DC Multivitamins/ Minerals (Ocuvite Lutein) 1 cap DAILY PO Last administered on 09:04; Start 10/06/16 at 11:00 Artificial Tears (Artificial Tears) 1 drop PRN BID PRN OU DRY EYE; Start at 10:30 Aspirin (Children'S Aspirin) 81 mg DAILYWBKFT PO Last administered on 10/08/16 09:00; Start 10/06/16 at 11:30; Stop 10/08/16 at 11:31; Status DC Guaifenesin (Robitussin) 200 mg QID PO Last administered on 10/09/16 08:58; Start 10/06/16 at 11:30 Furosemide (Lasix) 40 mg 1X ONCE IVP Last administered on 10/06/16 12:01; Start 10/06/16 at 12:00; Stop 10/06/16 at 12:01; Status DC Acetaminophen (Tylenol) 650 mg PRN Q6HRS PRN PEG MILD PAIN / TEMP Last administered on 10/07/16 20:51; Start 10/06/16 at 12:15 Ondansetron HCl (Zofran) 4 mg PRN Q6HRS PRN IV NAUSEA/VOMITING; Start 10/06/16 at 12:15 Enoxaparin Sodium (Lovenox 40mg Syringe) 40 mg Q24H SQ Last administered on 10/08 12:40; Start 10/06/16 at 13:00 Nystatin 1 alejandro 1 alejandro BID TP Last administered on 10/09/16 09:03; Start at 14:30 Piperacillin Sod/ Tazobactam Sod/ Sodium Chloride (Zosyn/Iv Sodium Chloride 0.9 % 100ml) 100 ml @ 200 mls/hr Q6HRS IV Last administered on 10/09/16 11:23; Start 10/06/16 at 18:00 Meloxicam (Mobic) 7.5 mg DAILY PO Last administered on 10/09/16 09:02; Start 10/07/16 at 10:00 Acetaminophen/ Hydrocodone Bitart (Lortab 5/325) 1 tab PRN Q4HRS PRN PO PAIN MILD TO MOD Last administered on 10/09/16 08:59; Start 10/07/16 at 10:45 Furosemide (Lasix) 20 mg 1X ONCE IVP Last administered on 10/07/16 18:24; Start 10/07/16 at 12:00; Stop 10/07/16 at 12:01; Status DC Digoxin 500 mcg 500 mcg 1X ONCE IV Last administered on 10/07/16 22:38; Start 10/07/16 at 22:15; Stop 10/07/16 at 22:17; Status DC Micafungin Sodium/ Dextrose (Mycamine) 100 ml @ 100 mls/hr Q24H IV Last administered on 10/09/16 09:02; Start 10/08/16 at 09:00 Iohexol (Omnipaque 240 Mg/ml) 30 ml 1X ONCE PO Last administered on 10/08/16 11:47; Start 10/08/16 at 09:15; Stop 10/08/16 at 09:18; Status DC Iohexol (Omnipaque 300 Mg/ml) 75 ml 1X ONCE IV Last administered on 10/08/16 11:46; Start 10/08/16 at 09:15; Stop 10/08/16 at 09:18; Status DC Finasteride (Proscar) 5 mg DAILY PO Last administered on 10/09/16 09:01; Start 10/09/16 at 09:00 Methylprednisolone Acetate (Depo-Medrol 40mg Vial) 40 mg 1X ONCE IM ; Start 10/08/16 at 10:45; Stop 10/08/16 at 10:53; Status DC Methylprednisolone Acetate (Depo-Medrol 40mg Vial) 40 mg 1X ONCE IM ; Start 10/08/16 at 10:45; Stop 10/08/16 at 10:53; Status DC Bupivacaine HCl (Sensorcaine-Mpf 0.25%) 10 ml 1X ONCE IJ ; Start 10/08/16 at 10: 45; Stop 10/08/16 at 10:53; Status DC Digoxin (Lanoxin) 125 mcg DAILY PO Last administered on 10/09/16 09:01; Start 10/08/16 at 11:30 Aspirin (Children'S Aspirin) 325 mg DAILYWBKFT PO Last administered on 12:38; Start 10/08/16 at 11:30; Stop 10/08/16 at 13:30; Status DC Lactobacillus Acidophilus (Bacid, Danielle-Bid) 1 tab DAILY PO Last administered on 10/09/16 09:00; Start 10/08/16 at 13:00 Aspirin (Children'S Aspirin) 324 mg DAILYWBKFT PO Last administered on 09:00; Start 10/08/16 at 13:30 Oxycodone/ Acetaminophen (Percocet 10/325) 1 tab PRN Q6HRS PRN PO PAIN; Start 10/09/16 at 10:30 Active Scripts Active Reported Isopto Tears (Hypromellose) 15 Ml Drops 15 Ml OP Oxycodone Hcl 10 Mg Tablet 1 Tab PO QID Ocuvite Tablet (Vit A,C & E/Lutein/Minerals) 1 Each Tablet 1 Each PO Dulcolax (Bisacodyl) 10 Mg Supp.rect 10 Mg RC PRN DAILY PRN Milk Of Magnesia (Magnesium Hydroxide) 400 Mg/5 Ml Oral.susp 400 Mg PO Simvastatin 20 Mg Tablet 1 Tab PO QHS Refresh Optive Eye Drops (Carboxymethylcellulos/Glycerin) 15 Ml Drops 1 Drop EACHEYE BID Tamsulosin Hcl 0.4 Mg Cap.er.24h 1 Cap PO DAILY Potassium Chloride Oral Liquid (Potassium Chloride) 20 Meq/15 Ml Liquid 10 Meq PEG DAILY Aspir 81 (Aspirin) 81 Mg Tablet.dr 1 Tab PO DAILY Furosemide 40 Mg Tablet 1 Tab PO DAILY Meloxicam 7.5 Mg Tablet 1 Tab PO DAILY Trazodone Hcl 50 Mg Tablet 1 Tab PO QHS Mucinex (Guaifenesin) 600 Mg Tablet.er 600 Mg PO Vitals/I & O Vital Sign - Last 24 Hours 10/08/16 10/08/16 10/08/16 10/08/16 15:00 15:42 19:00 20:00 Temp 97.5 97.9 97.5 97.9 Pulse 80 82 Resp 18 20 18 B/P 107/48 128/68 Pulse Ox 95 99 O2 Delivery Nasal Cannula Nasal Cannula Nasal Cannula Nasal Cannula O2 Flow Rate 5.0 5.0 10/08/16 10/08/16 10/08/16 10/09/16 20:11 21:11 23:00 03:00 Temp 99.3 98.4 99.3 98.4 Pulse 63 91 Resp 17 B/P 122/55 128/53 Pulse Ox 95 98 98 95 O2 Delivery Nasal Cannula Nasal Cannula Nasal Cannula O2 Flow Rate 5.0 10/09/16 10/09/16 10/09/16 10/09/16 07:00 08:00 08:59 09:01 Temp 98.3 98.3 Pulse 86 91 Resp 18 20 B/P 125/57 128/53 Pulse Ox 89 O2 Delivery Nasal Cannula Nasal Cannula O2 Flow Rate 5.0 5.0 10/09/16 10/09/16 09:59 11:00 Temp 98.8 98.8 Pulse 84 Resp 20 20 B/P 130/53 Pulse Ox 88 O2 Delivery Nasal Cannula Nasal Cannula O2 Flow Rate 5.0 5.0 Intake and Output 10/08/16 10/08/16 10/09/16 15:00 23:00 07:00 Intake Total 550 ml 1230 ml Output Total 1350 ml Balance 550 ml 1230 ml -1350 ml EDWARDO AMES MD Oct 09, 2016 13:38
[2016-10-09] MEDS: ENOXAPARIN 40 MG/0.4 ML DISP.SYRIN. SQ SCH (14:18)
--- NOTE | 2016-10-09 14:53 | PDOC ---
CARDIO Progress Notes Date and Time Date of Service 10/09/16 Time of Evaluation 1245 Subjective Subjective: No Chest Pain, No shortness of breath, No Palpitations Comments: granddaughter at bedside Vitals Vitals Vital Signs Date Time Temp Pulse Resp B/P Pulse Ox O2 Delivery O2 Flow Rate FiO2 10/09/16 11:00 98.8 84 20 130/53 88 Nasal Cannula 5.0 98.8 Weight Weight [ ] Input and Output Intake and Output Intake and Output 10/09/16 07:00 Intake Total 1780 ml Output Total 1350 ml Balance 430 ml IV Total 550 ml Tube Feeding 630 ml Other 600 ml Output Urine Total 1350 ml # Bowel Movements 3 Laboratory Labs Laboratory Tests Test 10/09/16 09:10 White Blood Count 18.0x10^3/uL (4.0-11.0) Red Blood Count 3.58x10^6/uL (4.30-5.70) Hemoglobin 10.8g/dL (13.0-17.5) Hematocrit 32.5% (39.0-53.0) Mean Corpuscular Volume 91fL (79-100) Mean Corpuscular Hemoglobin 30pg (25-35) Mean Corpuscular Hemoglobin Concent 33g/dL (31-37) Red Cell Distribution Width 13.9% (11.5-14.5) Platelet Count 187x10^3/uL (140-400) Neutrophils (%) (Auto) 87% (31-73) Lymphocytes (%) (Auto) 5% (24-48) Monocytes (%) (Auto) 5% (0-9) Eosinophils (%) (Auto) 3% (0-3) Basophils (%) (Auto) 0% (0-3) Neutrophils # (Auto) 15.6x10^3uL (1.8-7.7) Lymphocytes # (Auto) 0.9x10^3/uL (1.0-4.8) Monocytes # (Auto) 0.8x10^3/uL (0.0-1.1) Eosinophils # (Auto) 0.5x10^3/uL (0.0-0.7) Basophils # (Auto) 0.1x10^3/uL (0.0-0.2) Sodium Level 134mmol/L (136-145) Potassium Level 3.5mmol/L (3.5-5.1) Chloride Level 95mmol/L (98-107) Carbon Dioxide Level 35mmol/L (21-32) Anion Gap 4 (6-14) Blood Urea Nitrogen 16mg/dL (8-26) Creatinine 0.6mg/dL (0.7-1.3) Estimated GFR (Cockcroft-Gault) 131.3 Glucose Level 133mg/dL (70-99) Calcium Level 8.6mg/dL (8.5-10.1) Microbiology Micro Microbiology 10/05/16 Blood Culture - Preliminary, Resulted NO GROWTH AFTER 3 DAYS 10/05/16 Urine Culture - Final, Complete 10/05/16 Urine Culture Result 1 (JABARI) - Final, Complete Physical Exam HEENT: Neck Supple W Full Motion Chest: Symmetric LUNGS: Clear to Auscultation, Other (diminished bases ) Heart: S1S2, RRR, murmurs (2/6 systolic murmur ), other (tele SR-ST) Abdomen: Soft N/T, Other (PEG tube in palce) Extremities: 2+ Dorsalis Pedis, No Edema, No Calf Tenderness Neurology: alert, oriented, follow commands, confused (intermittent ) Assessment Assessment 1. Acute on chronic respiratory failure Multifactorial. possible PNA per pulm 2. Chronic diastolic HF appears clinically compensated echo revealed EF 50-55% with diastolic dysfunction continued supportive care 3. PAF HR much better controlled with addition of dig. presently maintaining SR. continue ASA for stroke prevention. No OAC candidate with recent, frequent falls. 4. CAD s/p remote CABG Follows with [facility] stable. CP free secondary prevention as able. 5. Hypertension remains low-normotensive no BB or VILLA with hypotension 6. Hyperlipidemia statin 7. Encephalopathy 8. Leukocytosis ID consulted 9. Infrarenal abdominal aortic aneurysm 4.1cm per CT vascular sx consulted LOPEZ OTOOLE APRN Oct 09, 2016 14:53
[2016-10-09] MEDS ORDERED: FUROSEMIDE 20 MG/2 ML VIAL IVP ONE (15:00)
--- NOTE | 2016-10-09 16:17 | PDOC ---
PROGRESS NOTES Assessment Assessment Metabolic encephalopathy. Hypoxia event, SO2 80s% Respiratory distress/failure. Pneumonia, LL Tachycardia Leukocytosis Generalized weakness. CAD CHF HTN HLD Aortic aneurysm 4 cm, has been the same size for 20 years per family. Dementia, underlying, unrecognized. No evidence of acute CVA this time. RECOMMENDATIONS/PLAN: Treat UTI Treat medical diseases. OT/PT Discussed with his grand-daughter at bedside on a daily basis. Brain MRI w/o contrast: No acute findings. EEG on 10/07: moderate encephalopathy. HISTORY OF THE PRESENT ILLNESS: 76-y-old male patient with above medical diseases developed symptoms of SOB, difficult breathing, altered mental status, and other medical symptoms. Neurology was called for consultation due to MS changes. No focalized motor or sensory deficits reported. He still has persistent mental status changes since here. PAST MEDICAL HISTORY: Please see above. PAST SURGERY HISTORY: PEG placement. ALLERGY: Reviewed. MEDICATIONS: Refer to [facility] FAMILY HISTORY: Non contributory. SOCIAL HISTORY: Lives at home. Denies current substances and illicit drug use. REVIEW OF SYSTEMS: Constitutional: No malnutrition, weight loss, cachexia. Head: No current traumatic brain or head injury. Skin: No edema, or rash. Ear: No infection, tinnitus. Eyes: No vision loss or color blindness. Nose: No bleeding or purulent discharges. Hearing: Hearing decrease. Neck: No injury. Cardiac: CAD, HTN, HLD. Pulmonary: No pneumonia, COPD. GI: No GI ulcer, GI bleeding, GERD. Urinary/genital: UTI. Endocrinologic: No cousin face, craniofacial dysmorphism, polydactyly Skeletomuscular: Generalized weakness. Neurological: see HP. Psychiatric: Denies drug use/abuse. Otherwise, not [id number] review of systems. PHYSICAL EXAMINATION: General appearance is in subacute distress. HEENT: Normocephalic and nontraumatic. Eyes, nose, ears, and throat are unremarkable. Neck is supple. No lymphadenopathy. No crepitus. Cardiovascular: S1, S2, regular rate and rhythm. Pulmonary: Clear to auscultation bilaterally. Abdomen: Bowel sounds are positive. Extremities: No rash, lesions, or edema. No restriction of range of motion NEUROLOGICAL EXAMINATION: Sleepiness but arousable. Oriented to place and person but not accurate to time. PERRL. EOMI. CN: no focal findings. Muscle tone: within normal. Muscle strength: 4 DTR: 2- Plantar reflex: Flexor response bilaterally Gait: not examined in bed. Sensory exam: no abnormal findings. Not able to access cerebellar signs. F-T-N test not performed.. Objective Objective Vital Signs Date Time Temp Pulse Resp B/P Pulse Ox O2 Delivery O2 Flow Rate FiO2 10/09/16 15:00 Off Unit 10/09/16 11:00 98.8 84 20 130/53 88 5.0 98.8 Intake and Output 10/09/16 07:00 Intake Total 1780 ml Output Total 1350 ml Balance 430 ml IV Total 550 ml Tube Feeding 630 ml Other 600 ml Output Urine Total 1350 ml # Bowel Movements 3 Vitals Signs Vitals VS - Last 72 Hours, by Label Date Time Temp Pulse Resp B/P Pulse Ox O2 Delivery O2 Flow Rate FiO2 10/09/16 15:00 Off Unit 10/09/16 11:00 98.8 84 20 130/53 88 Nasal Cannula 5.0 98.8 10/09/16 09:59 20 Nasal Cannula 5.0 10/09/16 09:01 91 128/53 10/09/16 08:59 20 5.0 10/09/16 08:00 Nasal Cannula 5.0 10/09/16 07:00 98.3 86 18 125/57 89 Nasal Cannula 98.3 10/09/16 03:00 98.4 91 17 128/53 95 Nasal Cannula 98.4 10/08/16 23:00 99.3 63 17 122/55 98 Nasal Cannula 99.3 10/08/16 21:11 98 10/08/16 20:11 18 95 Nasal Cannula 5.0 10/08/16 20:00 Nasal Cannula 5.0 10/08/16 19:00 97.9 82 18 128/68 99 Nasal Cannula 97.9 10/08/16 15:42 20 Nasal Cannula 5.0 10/08/16 15:00 97.5 80 18 107/48 95 Nasal Cannula 97.5 10/08/16 12:37 101 10/08/16 11:00 97.9 92 18 112/49 95 Nasal Cannula 97.9 10/08/16 09:27 92 Nasal Cannula 5.0 10/08/16 08:00 Nasal Cannula 5.0 10/08/16 07:00 96.7 94 20 95/38 92 Nasal Cannula 96.7 Laboratory Laboratory Laboratory Tests Test 3/10/17 09:10 White Blood Count 18.0x10^3/uL (4.0-11.0) Red Blood Count 3.58x10^6/uL (4.30-5.70) Hemoglobin 10.8g/dL (13.0-17.5) Hematocrit 32.5% (39.0-53.0) Mean Corpuscular Volume 91fL (79-100) Mean Corpuscular Hemoglobin 30pg (25-35) Mean Corpuscular Hemoglobin Concent 33g/dL (31-37) Red Cell Distribution Width 13.9% (11.5-14.5) Platelet Count 187x10^3/uL (140-400) Neutrophils (%) (Auto) 87% (31-73) Lymphocytes (%) (Auto) 5% (24-48) Monocytes (%) (Auto) 5% (0-9) Eosinophils (%) (Auto) 3% (0-3) Basophils (%) (Auto) 0% (0-3) Neutrophils # (Auto) 15.6x10^3uL (1.8-7.7) Lymphocytes # (Auto) 0.9x10^3/uL (1.0-4.8) Monocytes # (Auto) 0.8x10^3/uL (0.0-1.1) Eosinophils # (Auto) 0.5x10^3/uL (0.0-0.7) Basophils # (Auto) 0.1x10^3/uL (0.0-0.2) Sodium Level 134mmol/L (136-145) Potassium Level 3.5mmol/L (3.5-5.1) Chloride Level 95mmol/L (98-107) Carbon Dioxide Level 35mmol/L (21-32) Anion Gap 4 (6-14) Blood Urea Nitrogen 16mg/dL (8-26) Creatinine 0.6mg/dL (0.7-1.3) Estimated GFR (Cockcroft-Gault) 131.3 Glucose Level 133mg/dL (70-99) Calcium Level 8.6mg/dL (8.5-10.1) Microbiology 10/05/16 Blood Culture - Preliminary, Resulted NO GROWTH AFTER 3 DAYS 10/05/16 Urine Culture - Final, Complete 10/05/16 Urine Culture Result 1 (JABARI) - Final, Complete Medication Medications Current Medications Finasteride (Proscar) 5 mg DAILY PO Last administered on 10/09/16t 09:01; Start 10/09/16 at 09:00 Furosemide (Lasix) 20 mg 1X ONCE IVP ; Start 10/09/16 at 15:00; Stop 10/09/16 at 15:01; Status DC Oxycodone/ Acetaminophen (Percocet 10) 1 tab PRN Q6HRS PRN PO PAIN; Start 10/09/16 at 10:30 Comment Review of Relevant I have reviewed the following items cassidy (where applicable) has been applied. HUMA GODWIN MD Oct 09, 2016 16:17
--- NOTE | 2016-10-09 17:01 | CONS ---
DATE OF CONSULTATION: 10/09/2016 REASON FOR CONSULTATION: Abdominal aortic aneurysm. HISTORY OF PRESENT ILLNESS: This is a 76-year-old male who was admitted with altered mental status and some chronic lung disease. He has multiple medical problems, but on a CT of his abdomen, he was found to have a 4.1 cm infrarenal abdominal aortic aneurysm, non-ruptured. He says he has known about this for sometime. No prior history of any other arterial problems in his periphery. PAST MEDICAL HISTORY: He does have a history of coronary artery disease, congestive heart failure, hypertension, chronic lung disease. He has had a coronary bypass in the past and he also has a PEG. ALLERGIES: HE IS ALLERGIC TO COLCHICINE AND ALLOPURINOL. MEDICATIONS: See his reconciliation list. SOCIAL HISTORY: He is not diabetic. 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 He has very little ambulation. PHYSICAL EXAMINATION: GENERAL: Pleasant male who is alert, in no severe distress. NECK: 2+ carotids, 2+ radial pulses. CARDIOVASCULAR: Heart rate is regular. Well-healed median sternotomy. LUNGS: Nonlabored respirations. He is on oxygen. ABDOMEN: Soft. PEG in the left upper quadrant of his abdomen. Aneurysm not palpable. EXTREMITIES: Strong pedal pulses. He has got braces on both of his legs. IMPRESSION: Small asymptomatic abdominal aortic aneurysm in a patient with multiple medical problems and risk factors. PLAN: I discussed that problem with the patient and the nature of aneurysms, the potential risk for bleeding and leaking, which is very small at this point in time. I recommended a followup appointment in our vascular lab for another ultrasound at 6 months and an appointment with me. Thanks for allowing me to see him and to participate in his care. No further interventions at this point in time. KAYLA SALAMANCA MD DR: ELENITA/fabio JOB#: [id number] / [id number]
--- NOTE | 2016-10-09 17:25 | PDOC2 ---
CONSULT Date of Consult Date of Consult DATE: 10/09/16 TIME: 17:19 Reason for Consult Reason for Consult: symptomatic nails Referring Physician Referring Physician: Dr. Mason Identification/Chief Complaint Chief Complaint long thickened toenails Source Source: Chart review History of Present Illness Reason for Visit: 76 year old male admitted for multiple medical conditions. Podiatry consults for evaluation of feet and nail debridement requested Past Medical History Cardiovascular: CAD, CHF, HTN, Hyperlipidemia Pulmonary: Pneumonia, Other (lung disease ) CENTRAL NERVOUS SYSTEM: Other (cognitive impairment ) GI: No pertinent hx Psych: Anxiety Musculoskeletal: Osteoarthritis Rheumatologic: No pertinent hx Infectious disease: No pertinent hx ENT: No pertinent hx Renal/: No pertinent hx Endocrine: No pertinent hx Dermatology: No pertinent hx Past Surgical History Past Surgical History: Other (PEG placement ) Family History Family History: Cancer Social History Quit ALCOHOL: none Drugs: None Lives: with Family (presently at [facility] for rehab) Current Problem List Problem List Problems Medical Problems: (1) Altered mental status Status: Acute (2) Hospital acquired PNA Status: Acute Current Medications Current Medications Current Medications Albuterol/ Ipratropium (Duoneb) 3 ml 1X ONCE NEB Last administered on 22:21; Start 10/05/16 at 22:15; Stop 10/05/16 at 22:50; Status DC Ondansetron HCl 4 mg 4 mg PRN Q8HRS PRN IV NAUSEA/VOMITING; Start 10/05/16 at 23 :00; Stop 10/06/16 at 22:59; Status DC Sodium Chloride (Iv Sodium Chloride 0.9% 1000ml Bag) 1,000 ml @ 100 mls/hr Q10H IV Last administered on 10/06/16 18:59; Start 10/05/16 at 22:59; Stop at 22:58; Status DC Albuterol/ Ipratropium 3 ml 3 ml RTQID NEB Last administered on 10/07/16 07:47 ; Start 10/06/16 at 08:00; Stop 10/07/16 at 07:59; Status DC Ceftriaxone Sodium 1 gm/ Sodium Chloride 50 ml @ 100 mls/hr Q24H IV ; Start 10/06/16 at 22:00; Stop 10/06/16 at 22:00; Status DC Levofloxacin/ Dextrose (LEVAQUIN 750mg PREMIX) 150 ml @ 100 mls/hr 1X ONCE IV Last administered on 10/06/16 01:05; Start 10/05/16 at 23:30; Stop 10/06/16 at 00:59; Status DC Vancomycin HCl 1 each 1 each PRN DAILY PRN MC SEE COMMENTS Last administered on 10/07/16 14:14; Start 10/05/16 at 23:00; Stop 10/08/16 at 18:52; Status DC Ceftriaxone Sodium 50 ml @ 100 mls/hr 1X ONCE IV Last administered on 01:05; Start 10/05/16 at 23:30; Stop 10/05/16 at 23:59; Status DC Vancomycin HCl 2 gm/Sodium Chloride 500 ml @ 250 mls/hr 1X ONCE IV Last administered on 10/05/16 23:26; Start 10/06/16 at 00:00; Stop 10/06/16 at 01:59; Status DC Vancomycin HCl/ Sodium Chloride (Iv Sodium Chloride 0.9% 250ml) 250 ml @ 167 mls/hr Q12H IV Last administered on 10/08/16 13:20; Start 10/06/16 at 12:00; Stop 10/08/16 at 18:52; Status DC Vancomycin HCl 1 each 1 each 1X ONCE MC ; Start 10/07/16 at 11:30; Stop 10/07/16 at 11:31; Status DC Piperacillin Sod/ Tazobactam Sod/ Sodium Chloride (Zosyn/Iv Sodium Chloride 0.9 % 50ml) 50 ml @ 100 mls/hr Q6HRS IV Last administered on 10/06/16 11:56; Start 10/06/16 at 11:00; Stop 10/06/16 at 15:24; Status DC Piperacillin Sod/ Tazobactam Sod (Zosyn Per Pharmacy) 1 each PRN DAILY PRN MC SEE COMMENTS; Start 10/06/16 at 10:15 Aspirin (Ecotrin) 81 mg DAILY PO ; Start 10/06/16 at 11:30; Stop 10/06/16 at 11:30 ; Status DC Bisacodyl (Dulcolax Supp) 10 mg PRN DAILY PRN RC CONSTIPATION; Start 10/06/16 at 10:15 Furosemide (Lasix) 40 mg DAILY PO Last administered on 10/09/16 09:02; Start 10/06/16 at 11:30 Guaifenesin (Mucinex) 600 mg BID PO ; Start 10/06/16 at 11:30; Stop 10/06/16 at 11 :30; Status DC Potassium Chloride (KCl Oral Soln) 10 meq DAILY PEG Last administered on 09:00; Start 10/06/16 at 11:30 Simvastatin (Zocor) 20 mg QHS PO Last administered on 10/08/16 22:05; Start 10/06/16 at 21:00 Tamsulosin HCl (Flomax) 0.4 mg DAILY PO Last administered on 10/07/16 08:58; Start 10/06/16 at 11:30; Stop 10/08/16 at 10:18; Status DC Multivitamins/ Minerals (Ocuvite Lutein) 1 cap DAILY PO Last administered on 09:04; Start 10/06/16 at 11:00 Artificial Tears (Artificial Tears) 1 drop PRN BID PRN OU DRY EYE; Start at 10:30 Aspirin (Children'S Aspirin) 81 mg DAILYWBKFT PO Last administered on 10/08/16 09:00; Start 10/06/16 at 11:30; Stop 10/08/16 at 11:31; Status DC Guaifenesin (Robitussin) 200 mg QID PO Last administered on 10/09/16 16:54; Start 10/06/16 at 11:30 Furosemide (Lasix) 40 mg 1X ONCE IVP Last administered on 10/06/16 12:01; Start 10/06/16 at 12:00; Stop 10/06/16 at 12:01; Status DC Acetaminophen (Tylenol) 650 mg PRN Q6HRS PRN PEG MILD PAIN / TEMP Last administered on 10/07/16 20:51; Start 10/06/16 at 12:15 Ondansetron HCl (Zofran) 4 mg PRN Q6HRS PRN IV NAUSEA/VOMITING; Start 10/06/16 at 12:15 Enoxaparin Sodium (Lovenox 40mg Syringe) 40 mg Q24H SQ Last administered on 14:18; Start 10/06/16 at 13:00 Nystatin 1 alejandro 1 alejandro BID TP Last administered on 10/09/16 09:03; Start at 14:30 Piperacillin Sod/ Tazobactam Sod/ Sodium Chloride (Zosyn/Iv Sodium Chloride 0.9 % 100ml) 100 ml @ 200 mls/hr Q6HRS IV Last administered on 10/09/16 11:23; Start 10/06/16 at 18:00 Meloxicam (Mobic) 7.5 mg DAILY PO Last administered on 10/09/16 09:02; Start 10/07/16 at 10:00 Acetaminophen/ Hydrocodone Bitart (Lortab 5/325) 1 tab PRN Q4HRS PRN PO PAIN MILD TO MOD Last administered on 10/09/16 08:59; Start 10/07/16 at 10:45 Furosemide (Lasix) 20 mg 1X ONCE IVP Last administered on 10/07/16 18:24; Start 10/07/16 at 12:00; Stop 10/07/16 at 12:01; Status DC Digoxin 500 mcg 500 mcg 1X ONCE IV Last administered on 10/07/16 22:38; Start 10/07/16 at 22:15; Stop 10/07/16 at 22:17; Status DC Micafungin Sodium/ Dextrose (Mycamine) 100 ml @ 100 mls/hr Q24H IV Last administered on 10/09/16 09:02; Start 10/08/16 at 09:00 Iohexol (Omnipaque 240 Mg/ml) 30 ml 1X ONCE PO Last administered on 10/08/16 11:47; Start 10/08/16 at 09:15; Stop 10/08/16 at 09:18; Status DC Iohexol (Omnipaque 300 Mg/ml) 75 ml 1X ONCE IV Last administered on 10/08/16 11:46; Start 10/08/16 at 09:15; Stop 10/08/16 at 09:18; Status DC Finasteride (Proscar) 5 mg DAILY PO Last administered on 10/09/16 09:01; Start 10/09/16 at 09:00 Methylprednisolone Acetate (Depo-Medrol 40mg Vial) 40 mg 1X ONCE IM ; Start 10/08/16 at 10:45; Stop 10/08/16 at 10:53; Status DC Methylprednisolone Acetate (Depo-Medrol 40mg Vial) 40 mg 1X ONCE IM ; Start 10/08/16 at 10:45; Stop 10/08/16 at 10:53; Status DC Bupivacaine HCl (Sensorcaine-Mpf 0.25%) 10 ml 1X ONCE IJ ; Start 10/08/16 at 10: 45; Stop 10/08/16 at 10:53; Status DC Digoxin (Lanoxin) 125 mcg DAILY PO Last administered on 10/09/16 09:01; Start 10/08/16 at 11:30 Aspirin (Children'S Aspirin) 325 mg DAILYWBKFT PO Last administered on 12:38; Start 10/08/16 at 11:30; Stop 10/08/16 at 13:30; Status DC Lactobacillus Acidophilus (Bacid, Danielle-Bid) 1 tab DAILY PO Last administered on 10/09/16 09:00; Start 10/08/16 at 13:00 Aspirin (Children'S Aspirin) 324 mg DAILYWBKFT PO Last administered on 09:00; Start 10/08/16 at 13:30 Oxycodone/ Acetaminophen (Percocet 10/325) 1 tab PRN Q6HRS PRN PO PAIN; Start 10/09/16 at 10:30 Furosemide (Lasix) 20 mg 1X ONCE IVP Last administered on 10/09/16 16:54; Start 10/09/16 at 15:00; Stop 10/09/16 at 15:01; Status DC Active Scripts Active Reported Isopto Tears (Hypromellose) 15 Ml Drops 15 Ml OP Oxycodone Hcl 10 Mg Tablet 1 Tab PO QID Ocuvite Tablet (Vit A,C & E/Lutein/Minerals) 1 Each Tablet 1 Each PO Dulcolax (Bisacodyl) 10 Mg Supp.rect 10 Mg RC PRN DAILY PRN Milk Of Magnesia (Magnesium Hydroxide) 400 Mg/5 Ml Oral.susp 400 Mg PO Simvastatin 20 Mg Tablet 1 Tab PO QHS Refresh Optive Eye Drops (Carboxymethylcellulos/Glycerin) 15 Ml Drops 1 Drop EACHEYE BID Tamsulosin Hcl 0.4 Mg Cap.er.24h 1 Cap PO DAILY Potassium Chloride Oral Liquid (Potassium Chloride) 20 Meq/15 Ml Liquid 10 Meq PEG DAILY Aspir 81 (Aspirin) 81 Mg Tablet.dr 1 Tab PO DAILY Furosemide 40 Mg Tablet 1 Tab PO DAILY Meloxicam 7.5 Mg Tablet 1 Tab PO DAILY Trazodone Hcl 50 Mg Tablet 1 Tab PO QHS Mucinex (Guaifenesin) 600 Mg Tablet.er 600 Mg PO Allergies Allergies: Coded Allergies: allopurinol (Verified Allergy, Intermediate, 10/05/16) colchicine (Verified Allergy, Intermediate, 10/05/16) ROS Review of System unable to obtain from patient Physical Exam Physical Exam Lower extremity: Skin is warm, xerotic, atrophic. No discontinuity of skin to bilateral feet. No calor. no fluctuance. no signs of infection. nails are long x 10 with thickening 1cm and yellow brown discoloration bilateral hallux and 5th digit nails. DP and 2/4. PT is 1/4 right and 0/4 left. CFT is 3 seconds. Hair is absent to feet. +2 pitting edema to bilateral lower extremity. + Varicosities. Sensation is intact to sharp dull. Did not assess gait. Muscle strength is 4/5. dorsally contracted digits 4,5 bilateral. General: Alert, No acute distress, Other (unable to understand, poor historian. ) Vitals VITALS Vital Signs Date Time Temp Pulse Resp B/P Pulse Ox O2 Delivery O2 Flow Rate FiO2 10/09/16 15:00 Off Unit 10/09/16 11:00 98.8 84 20 130/53 88 5.0 98.8 Labs Labs Laboratory Tests Test 10/08/16 03:50 10/08/16 13:00 10/09/16 09:10 White Blood Count 21.6x10^3/uL (4.0-11.0) 18.0x10^3/uL (4.0-11.0) Red Blood Count 3.67x10^6/uL (4.30-5.70) 3.58x10^6/uL (4.30-5.70) Hemoglobin 11.1g/dL (13.0-17.5) 10.8g/dL (13.0-17.5) Hematocrit 33.6% (39.0-53.0) 32.5% (39.0-53.0) Mean Corpuscular Volume 92fL (79-100) 91fL (79-100) Mean Corpuscular Hemoglobin 30pg (25-35) 30pg (25-35) Mean Corpuscular Hemoglobin Concent 33g/dL (31-37) 33g/dL (31-37) Red Cell Distribution Width 14.2% (11.5-14.5) 13.9% (11.5-14.5) Platelet Count 178x10^3/uL (140-400) 187x10^3/uL (140-400) Neutrophils (%) (Auto) 87% (31-73) 87% (31-73) Lymphocytes (%) (Auto) 5% (24-48) 5% (24-48) Monocytes (%) (Auto) 6% (0-9) 5% (0-9) Eosinophils (%) (Auto) 2% (0-3) 3% (0-3) Basophils (%) (Auto) 0% (0-3) 0% (0-3) Neutrophils # (Auto) 18.7x10^3uL (1.8-7.7) 15.6x10^3uL (1.8-7.7) Lymphocytes # (Auto) 1.0x10^3/uL (1.0-4.8) 0.9x10^3/uL (1.0-4.8) Monocytes # (Auto) 1.3x10^3/uL (0.0-1.1) 0.8x10^3/uL (0.0-1.1) Eosinophils # (Auto) 0.5x10^3/uL (0.0-0.7) 0.5x10^3/uL (0.0-0.7) Basophils # (Auto) 0.1x10^3/uL (0.0-0.2) 0.1x10^3/uL (0.0-0.2) Sodium Level 135mmol/L (136-145) 134mmol/L (136-145) Potassium Level 3.5mmol/L (3.5-5.1) 3.5mmol/L (3.5-5.1) Chloride Level 97mmol/L (98-107) 95mmol/L (98-107) Carbon Dioxide Level 37mmol/L (21-32) 35mmol/L (21-32) Anion Gap 1 (6-14) 4 (6-14) Blood Urea Nitrogen 20mg/dL (8-26) 16mg/dL (8-26) Creatinine 0.8mg/dL (0.7-1.3) 0.6mg/dL (0.7-1.3) Estimated GFR (Cockcroft-Gault) 94.2 131.3 Glucose Level 109mg/dL (70-99) 133mg/dL (70-99) Uric Acid 3.8mg/dL (3.5-7.2) Calcium Level 8.4mg/dL (8.5-10.1) 8.6mg/dL (8.5-10.1) Procalcitonin 1.63ng/mL (0.00-0.10) Clostridium difficile Toxin (PCR) Negative (Negative) Laboratory Tests Test 10/09/16 09:10 White Blood Count 18.0x10^3/uL (4.0-11.0) Red Blood Count 3.58x10^6/uL (4.30-5.70) Hemoglobin 10.8g/dL (13.0-17.5) Hematocrit 32.5% (39.0-53.0) Mean Corpuscular Volume 91fL (79-100) Mean Corpuscular Hemoglobin 30pg (25-35) Mean Corpuscular Hemoglobin Concent 33g/dL (31-37) Red Cell Distribution Width 13.9% (11.5-14.5) Platelet Count 187x10^3/uL (140-400) Neutrophils (%) (Auto) 87% (31-73) Lymphocytes (%) (Auto) 5% (24-48) Monocytes (%) (Auto) 5% (0-9) Eosinophils (%) (Auto) 3% (0-3) Basophils (%) (Auto) 0% (0-3) Neutrophils # (Auto) 15.6x10^3uL (1.8-7.7) Lymphocytes # (Auto) 0.9x10^3/uL (1.0-4.8) Monocytes # (Auto) 0.8x10^3/uL (0.0-1.1) Eosinophils # (Auto) 0.5x10^3/uL (0.0-0.7) Basophils # (Auto) 0.1x10^3/uL (0.0-0.2) Sodium Level 134mmol/L (136-145) Potassium Level 3.5mmol/L (3.5-5.1) Chloride Level 95mmol/L (98-107) Carbon Dioxide Level 35mmol/L (21-32) Anion Gap 4 (6-14) Blood Urea Nitrogen 16mg/dL (8-26) Creatinine 0.6mg/dL (0.7-1.3) Estimated GFR (Cockcroft-Gault) 131.3 Glucose Level 133mg/dL (70-99) Calcium Level 8.6mg/dL (8.5-10.1) Assessment/Plan Assessment/Plan 76 year old male with onychogryphosis, clinical onychomycosis, xerosis, lymphedema bilateral lower extremity -Nails debrided x 10 with microbleed to left hallux. Achieved hemostasis with pressure and applied bandaid. Continue daily local wound care with antibiotic ointment and bandaid -Recommend apply RX: lactic acid 12% lotion daily for xerosis. -Recommend ELLA hose for compression and elevate bilateral lower extremity for treatment of edema -follow up on an as needed basis. Will sign off. RADHA TEMPLETON DPM Oct 09, 2016 17:25
[2016-10-09] MEDS: UREA 40% TOPICAL CREAM 28.3GM TUBE. TP SCH (17:38)
[2016-10-09 19:00] VITALS: BP 162/57
[2016-10-09] MEDS: SIMVASTATIN 20 MG TABLET PO SCH (22:11)
[2016-10-09 23:00] VITALS: BP 141/60
[2016-10-10 03:00] VITALS: BP 136/56
[2016-10-10] MEDS: ACETAMINOPHEN 650 MG/20.3 ML SOLUTION. PEG PRN ×2 (03:49→09:42)
[2016-10-10] MEDS: PIPERACILLIN/TAZOBACTAM 4.5 GM in IV NORMAL SALINE 100ML 100 ML IV SCH ×4 (05:04→23:50)
[2016-10-10 07:25] VITALS: BP 143/51
[2016-10-10] MEDS: DIGOXIN 125 MCG TABLET PO SCH (09:00)
[2016-10-10] MEDS: GUAIFENESIN 200 MG/10 ML LIQUID. PO SCH ×4 (09:00→21:05)
[2016-10-10] MEDS: LACTOBACILLUS ACIDOPH & BULGAR 1 TABLET. PO SCH (09:00)
[2016-10-10] MEDS: NYSTATIN TOPICAL POWDER 15GM BOTTLE. TP SCH ×2 (09:00→21:05)
[2016-10-10] MEDS: FUROSEMIDE 40 MG TABLET PO SCH (09:01)
[2016-10-10] MEDS: FINASTERIDE 5 MG TABLET PO SCH (09:01)
[2016-10-10] MEDS: POTASSIUM CHLORIDE 20 MEQ/15 ML ORAL LIQUID. PEG SCH (09:01)
[2016-10-10] MEDS: ASPIRIN 81 MG TAB.CHEW PO SCH (09:01)
[2016-10-10] MEDS: MELOXICAM 7.5 MG TABLET PO SCH (09:01)
[2016-10-10 10:30] VITALS: BP 133/50
[2016-10-10] MEDS: MICAFUNGIN 100 MG in IV DEXTROSE 5% 100 ML IV SCH (11:14)
[2016-10-10] MEDS: UREA 40% TOPICAL CREAM 28.3GM TUBE. TP SCH (11:14)
[2016-10-10 12:19] LABS: BASO # 0.1 x10^3/uL (0.0-0.2); BASO % 1 % (0-3); EOS % 4 % (0-3); HEMATOCRIT 31.2 % (39.0-53.0); HEMOGLOBIN 10.4 g/dL (13.0-17.5); LYMPH # 1.2 x10^3/uL (1.0-4.8); LYMPH % 9 % (24-48); MEAN CORPUSCULAR HEMOGLOBIN 30 pg (25-35); MEAN CORPUSCULAR HGB CONC 33 g/dL (31-37); MEAN CORPUSCULAR VOLUME 91 fL (79-100); MONO % 7 % (0-9); NEUT % 80 % (31-73); PLATELET COUNT 215 x10^3/uL (140-400); RED BLOOD COUNT 3.43 x10^6/uL (4.30-5.70); WHITE BLOOD COUNT 13.2 x10^3/uL (4.0-11.0)
--- NOTE | 2016-10-10 12:31 | PDOC ---
PULMONARY PROGRESS NOTES Subjective tamx 102 oral secretions Vitals Vital Signs Date Time Temp Pulse Resp B/P Pulse Ox O2 Delivery O2 Flow Rate FiO2 10/10/16 10:30 97.5 73 24 133/50 93 Nasal Cannula 5.0 97.5 General: No acute distress Lungs: Other (rhonchi) Cardiovascular: S1 Abdomen: Soft Extremities: Other (1+edema) Labs Laboratory Tests Test 10/08/16 13:00 10/09/16 09:10 Clostridium difficile Toxin (PCR) Negative (Negative) White Blood Count 18.0x10^3/uL (4.0-11.0) Red Blood Count 3.58x10^6/uL (4.30-5.70) Hemoglobin 10.8g/dL (13.0-17.5) Hematocrit 32.5% (39.0-53.0) Mean Corpuscular Volume 91fL (79-100) Mean Corpuscular Hemoglobin 30pg (25-35) Mean Corpuscular Hemoglobin Concent 33g/dL (31-37) Red Cell Distribution Width 13.9% (11.5-14.5) Platelet Count 187x10^3/uL (140-400) Neutrophils (%) (Auto) 87% (31-73) Lymphocytes (%) (Auto) 5% (24-48) Monocytes (%) (Auto) 5% (0-9) Eosinophils (%) (Auto) 3% (0-3) Basophils (%) (Auto) 0% (0-3) Neutrophils # (Auto) 15.6x10^3uL (1.8-7.7) Lymphocytes # (Auto) 0.9x10^3/uL (1.0-4.8) Monocytes # (Auto) 0.8x10^3/uL (0.0-1.1) Eosinophils # (Auto) 0.5x10^3/uL (0.0-0.7) Basophils # (Auto) 0.1x10^3/uL (0.0-0.2) Sodium Level 134mmol/L (136-145) Potassium Level 3.5mmol/L (3.5-5.1) Chloride Level 95mmol/L (98-107) Carbon Dioxide Level 35mmol/L (21-32) Anion Gap 4 (6-14) Blood Urea Nitrogen 16mg/dL (8-26) Creatinine 0.6mg/dL (0.7-1.3) Estimated GFR (Cockcroft-Gault) 131.3 Glucose Level 133mg/dL (70-99) Calcium Level 8.6mg/dL (8.5-10.1) Medications Active Scripts Medications Dose Route/Sig Days Date Category Isopto Tears (Hypromellose) 15 Ml Drops 15 Ml OP 10/06/16 Reported Oxycodone Hcl 10 Mg Tablet 1 Tab PO QID 10/06/16 Reported Ocuvite Tablet (Vit A,C & E/Lutein/Minerals) 1 Each Tablet 1 Each PO 10/06/16 Reported Dulcolax (Bisacodyl) 10 Mg Supp.rect 10 Mg RC PRN DAILY PRN 10/06/16 Reported Milk Of Magnesia (Magnesium Hydroxide) 400 Mg/5 Ml Oral.susp 400 Mg PO 10/06/16 Reported Simvastatin 20 Mg Tablet 1 Tab PO QHS 10/06/16 Reported Refresh Optive Eye Drops (Carboxymethylcellulos/Glycerin) 15 Ml Drops 1 Drop EACHEYE BID 10/06/16 Reported Tamsulosin Hcl 0.4 Mg Cap.er.24h 1 Cap PO DAILY 10/06/16 Reported Potassium Chloride Oral Liquid (Potassium Chloride) 20 Meq/15 Ml Liquid 10 Meq PEG DAILY 10/06/16 Reported Aspir 81 (Aspirin) 81 Mg Tablet.dr 1 Tab PO DAILY 10/06/16 Reported Furosemide 40 Mg Tablet 1 Tab PO DAILY 10/06/16 Reported Meloxicam 7.5 Mg Tablet 1 Tab PO DAILY 10/06/16 Reported Trazodone Hcl 50 Mg Tablet 1 Tab PO QHS 10/06/16 Reported Mucinex (Guaifenesin) 600 Mg Tablet.er 600 Mg PO 10/06/16 Reported Impression . 1. Acute hypoxic respiratory failure, I suspect related to left basilar pneumonia; New fever since 10/08 despite improving CXR. ID following. Probably related to UTI with yeast 2. Questionable mild chronic obstructive pulmonary disease. 3. Mild hyponatremia. Could be dilutional. 4. Abnormal chest x-ray with mild cardiomegaly and volume loss, left lower lobe. Possible left lower lobe pneumonia, cannot exclude the possibility of a small effusion related to mild congestive heart failure. 5. History of coronary artery disease. 6. History of chronic percutaneous endoscopic gastrostomy tube. He uses enteral nutrition as well as oral nutrition. According to daughter, he is a picky eater, so he does not meet his nutritional needs by oral intake only. 7. Leukocytosis, persistent fever Plan . 1. We will gradually wean the FiO2. 2. Ct chest with mild basal atelectasis 3. Continue broad-spectrum antibiotics per ID , fever persist, suspect Abd source 4. Follow chest x-ray.10/08 with improving LLL volume loss 5. Nebulizer treatments as scheduled. 6. ct chest,abd/pelvis report reviewed. Pneumoperitoneum ? due to PEG, surgery following. d/w MARÍA Woods MD Oct 10, 2016 12:31
--- NOTE | 2016-10-10 12:32 | PDOC ---
PROGRESS NOTES Subjective Subjective He is lethargic today. Objective Objective Vital Signs Date Time Temp Pulse Resp B/P Pulse Ox O2 Delivery O2 Flow Rate FiO2 10/10/16 10:30 97.5 73 24 133/50 93 Nasal Cannula 5.0 97.5 Intake and Output 10/10/16 07:00 Intake Total 3477 ml Output Total 400 ml Balance 3077 ml Intake Oral 0 ml Tube Feeding 1947 ml Other 1530 ml Output Urine Total 400 ml # Bowel Movements 2 Physical Exam Physical Exam He is supine in bed and sleepy and continues to require maximal help with mobility and self care. Assessment Assessment Problems Medical Problems: (1) Altered mental status Status: Acute (2) Hospital acquired PNA Status: Acute Plan Plan of Care To SNF when medically stable. Comment Review of Relevant I have reviewed the following items cassidy (where applicable) has been applied. Labs Laboratory Tests Test 10/08/16 13:00 10/09/16 09:10 10/10/16 11:06 Clostridium difficile Toxin (PCR) Negative (Negative) White Blood Count 18.0x10^3/uL (4.0-11.0) 13.2x10^3/uL (4.0-11.0) Red Blood Count 3.58x10^6/uL (4.30-5.70) 3.43x10^6/uL (4.30-5.70) Hemoglobin 10.8g/dL (13.0-17.5) 10.4g/dL (13.0-17.5) Hematocrit 32.5% (39.0-53.0) 31.2% (39.0-53.0) Mean Corpuscular Volume 91fL (79-100) 91fL (79-100) Mean Corpuscular Hemoglobin 30pg (25-35) 30pg (25-35) Mean Corpuscular Hemoglobin Concent 33g/dL (31-37) 33g/dL (31-37) Red Cell Distribution Width 13.9% (11.5-14.5) 14.0% (11.5-14.5) Platelet Count 187x10^3/uL (140-400) 215x10^3/uL (140-400) Neutrophils (%) (Auto) 87% (31-73) 80% (31-73) Lymphocytes (%) (Auto) 5% (24-48) 9% (24-48) Monocytes (%) (Auto) 5% (0-9) 7% (0-9) Eosinophils (%) (Auto) 3% (0-3) 4% (0-3) Basophils (%) (Auto) 0% (0-3) 1% (0-3) Neutrophils # (Auto) 15.6x10^3uL (1.8-7.7) 10.5x10^3uL (1.8-7.7) Lymphocytes # (Auto) 0.9x10^3/uL (1.0-4.8) 1.2x10^3/uL (1.0-4.8) Monocytes # (Auto) 0.8x10^3/uL (0.0-1.1) 0.9x10^3/uL (0.0-1.1) Eosinophils # (Auto) 0.5x10^3/uL (0.0-0.7) 0.5x10^3/uL (0.0-0.7) Basophils # (Auto) 0.1x10^3/uL (0.0-0.2) 0.1x10^3/uL (0.0-0.2) Sodium Level 134mmol/L (136-145) Potassium Level 3.5mmol/L (3.5-5.1) Chloride Level 95mmol/L (98-107) Carbon Dioxide Level 35mmol/L (21-32) Anion Gap 4 (6-14) Blood Urea Nitrogen 16mg/dL (8-26) Creatinine 0.6mg/dL (0.7-1.3) Estimated GFR (Cockcroft-Gault) 131.3 Glucose Level 133mg/dL (70-99) Calcium Level 8.6mg/dL (8.5-10.1) Laboratory Tests Test 10/10/16 11:06 White Blood Count 13.2x10^3/uL (4.0-11.0) Red Blood Count 3.43x10^6/uL (4.30-5.70) Hemoglobin 10.4g/dL (13.0-17.5) Hematocrit 31.2% (39.0-53.0) Mean Corpuscular Volume 91fL (79-100) Mean Corpuscular Hemoglobin 30pg (25-35) Mean Corpuscular Hemoglobin Concent 33g/dL (31-37) Red Cell Distribution Width 14.0% (11.5-14.5) Platelet Count 215x10^3/uL (140-400) Neutrophils (%) (Auto) 80% (31-73) Lymphocytes (%) (Auto) 9% (24-48) Monocytes (%) (Auto) 7% (0-9) Eosinophils (%) (Auto) 4% (0-3) Basophils (%) (Auto) 1% (0-3) Neutrophils # (Auto) 10.5x10^3uL (1.8-7.7) Lymphocytes # (Auto) 1.2x10^3/uL (1.0-4.8) Monocytes # (Auto) 0.9x10^3/uL (0.0-1.1) Eosinophils # (Auto) 0.5x10^3/uL (0.0-0.7) Basophils # (Auto) 0.1x10^3/uL (0.0-0.2) Microbiology 10/05/16 Blood Culture - Preliminary, Resulted NO GROWTH AFTER 4 DAYS 10/05/16 Urine Culture - Final, Complete 10/05/16 Urine Culture Result 1 (JABARI) - Final, Complete Medications Current Medications Albuterol/ Ipratropium (Duoneb) 3 ml 1X ONCE NEB Last administered on 22:21; Start 10/05/16 at 22:15; Stop 10/05/16 at 22:50; Status DC Ondansetron HCl 4 mg 4 mg PRN Q8HRS PRN IV NAUSEA/VOMITING; Start 10/05/16 at 23 :00; Stop 10/06/16 at 22:59; Status DC Sodium Chloride (Iv Sodium Chloride 0.9% 1000ml Bag) 1,000 ml @ 100 mls/hr Q10H IV Last administered on 10/06/16 18:59; Start 10/05/16 at 22:59; Stop at 22:58; Status DC Albuterol/ Ipratropium 3 ml 3 ml RTQID NEB Last administered on 10/07/16 07:47 ; Start 10/06/16 at 08:00; Stop 10/07/16 at 07:59; Status DC Ceftriaxone Sodium 1 gm/ Sodium Chloride 50 ml @ 100 mls/hr Q24H IV ; Start 10/06/16 at 22:00; Stop 10/06/16 at 22:00; Status DC Levofloxacin/ Dextrose (LEVAQUIN 750mg PREMIX) 150 ml @ 100 mls/hr 1X ONCE IV Last administered on 10/06/16 01:05; Start 10/05/16 at 23:30; Stop 10/06/16 at 00:59; Status DC Vancomycin HCl 1 each 1 each PRN DAILY PRN MC SEE COMMENTS Last administered on 10/07/16 14:14; Start 10/05/16 at 23:00; Stop 10/08/16 at 18:52; Status DC Ceftriaxone Sodium 50 ml @ 100 mls/hr 1X ONCE IV Last administered on 01:05; Start 10/05/16 at 23:30; Stop 10/05/16 at 23:59; Status DC Vancomycin HCl 2 gm/Sodium Chloride 500 ml @ 250 mls/hr 1X ONCE IV Last administered on 10/05/16 23:26; Start 10/06/16 at 00:00; Stop 10/06/16 at 01:59; Status DC Vancomycin HCl/ Sodium Chloride (Iv Sodium Chloride 0.9% 250ml) 250 ml @ 167 mls/hr Q12H IV Last administered on 10/08/16 13:20; Start 10/06/16 at 12:00; Stop 10/08/16 at 18:52; Status DC Vancomycin HCl 1 each 1 each 1X ONCE MC ; Start 10/07/16 at 11:30; Stop 10/07/16 at 11:31; Status DC Piperacillin Sod/ Tazobactam Sod/ Sodium Chloride (Zosyn/Iv Sodium Chloride 0.9 % 50ml) 50 ml @ 100 mls/hr Q6HRS IV Last administered on 10/06/16 11:56; Start 10/06/16 at 11:00; Stop 10/06/16 at 15:24; Status DC Piperacillin Sod/ Tazobactam Sod (Zosyn Per Pharmacy) 1 each PRN DAILY PRN MC SEE COMMENTS; Start 10/06/16 at 10:15 Aspirin (Ecotrin) 81 mg DAILY PO ; Start 10/06/16 at 11:30; Stop 10/06/16 at 11:30 ; Status DC Bisacodyl (Dulcolax Supp) 10 mg PRN DAILY PRN RC CONSTIPATION; Start 10/06/16 at 10:15 Furosemide (Lasix) 40 mg DAILY PO Last administered on 10/10/16 09:01; Start 10/06/16 at 11:30 Guaifenesin (Mucinex) 600 mg BID PO ; Start 10/06/16 at 11:30; Stop 10/06/16 at 11 :30; Status DC Potassium Chloride (KCl Oral Soln) 10 meq DAILY PEG Last administered on 09:01; Start 10/06/16 at 11:30 Simvastatin (Zocor) 20 mg QHS PO Last administered on 10/09/16 22:11; Start at 21:00 Tamsulosin HCl (Flomax) 0.4 mg DAILY PO Last administered on 10/07/16 08:58; Start 10/06/16 at 11:30; Stop 10/08/16 at 10:18; Status DC Multivitamins/ Minerals (Ocuvite Lutein) 1 cap DAILY PO Last administered on 09:04; Start 10/06/16 at 11:00 Artificial Tears (Artificial Tears) 1 drop PRN BID PRN OU DRY EYE; Start at 10:30 Aspirin (Children'S Aspirin) 81 mg DAILYWBKFT PO Last administered on 10/08/16 09:00; Start 10/06/16 at 11:30; Stop 10/08/16 at 11:31; Status DC Guaifenesin (Robitussin) 200 mg QID PO Last administered on 10/10/16 09:00; Start 10/06/16 at 11:30 Furosemide (Lasix) 40 mg 1X ONCE IVP Last administered on 10/06/16 12:01; Start 10/06/16 at 12:00; Stop 10/06/16 at 12:01; Status DC Acetaminophen (Tylenol) 650 mg PRN Q6HRS PRN PEG MILD PAIN / TEMP Last administered on 10/10/16 09:42; Start 10/06/16 at 12:15 Ondansetron HCl (Zofran) 4 mg PRN Q6HRS PRN IV NAUSEA/VOMITING; Start 10/06/16 at 12:15 Enoxaparin Sodium (Lovenox 40mg Syringe) 40 mg Q24H SQ Last administered on 14:18; Start 10/06/16 at 13:00 Nystatin 1 alejandro 1 alejandro BID TP Last administered on 10/10/16 09:00; Start at 14:30 Piperacillin Sod/ Tazobactam Sod/ Sodium Chloride (Zosyn/Iv Sodium Chloride 0.9 % 100ml) 100 ml @ 200 mls/hr Q6HRS IV Last administered on 10/10/16 11:14; Start 10/06/16 at 18:00 Meloxicam (Mobic) 7.5 mg DAILY PO Last administered on 10/10/16 09:01; Start 10/07/16 at 10:00 Acetaminophen/ Hydrocodone Bitart (Lortab 5/325) 1 tab PRN Q4HRS PRN PO PAIN MILD TO MOD Last administered on 10/09/16 08:59; Start 10/07/16 at 10:45 Furosemide (Lasix) 20 mg 1X ONCE IVP Last administered on 10/07/16 18:24; Start 10/07/16 at 12:00; Stop 10/07/16 at 12:01; Status DC Digoxin 500 mcg 500 mcg 1X ONCE IV Last administered on 10/07/16 22:38; Start 10/07/16 at 22:15; Stop 10/07/16 at 22:17; Status DC Micafungin Sodium/ Dextrose (Mycamine) 100 ml @ 100 mls/hr Q24H IV Last administered on 10/10/16 11:14; Start 10/08/16 at 09:00 Iohexol (Omnipaque 240 Mg/ml) 30 ml 1X ONCE PO Last administered on 10/08/16 11:47; Start 10/08/16 at 09:15; Stop 10/08/16 at 09:18; Status DC Iohexol (Omnipaque 300 Mg/ml) 75 ml 1X ONCE IV Last administered on 10/08/16 11:46; Start 10/08/16 at 09:15; Stop 10/08/16 at 09:18; Status DC Finasteride (Proscar) 5 mg DAILY PO Last administered on 10/10/16 09:01; Start 10/09/16 at 09:00 Methylprednisolone Acetate (Depo-Medrol 40mg Vial) 40 mg 1X ONCE IM ; Start 10/08/16 at 10:45; Stop 10/08/16 at 10:53; Status DC Methylprednisolone Acetate (Depo-Medrol 40mg Vial) 40 mg 1X ONCE IM ; Start 10/08/16 at 10:45; Stop 10/08/16 at 10:53; Status DC Bupivacaine HCl (Sensorcaine-Mpf 0.25%) 10 ml 1X ONCE IJ ; Start 10/08/16 at 10: 45; Stop 10/08/16 at 10:53; Status DC Digoxin (Lanoxin) 125 mcg DAILY PO Last administered on 10/10/16 09:00; Start 10/08/16 at 11:30 Aspirin (Children'S Aspirin) 325 mg DAILYWBKFT PO Last administered on 12:38; Start 10/08/16 at 11:30; Stop 10/08/16 at 13:30; Status DC Lactobacillus Acidophilus (Bacid, Danielle-Bid) 1 tab DAILY PO Last administered on 10/10/16 09:00; Start 10/08/16 at 13:00 Aspirin (Children'S Aspirin) 324 mg DAILYWBKFT PO Last administered on 09:01; Start 10/08/16 at 13:30 Oxycodone/ Acetaminophen (Percocet 10/325) 1 tab PRN Q6HRS PRN PO PAIN; Start 10/09/16 at 10:30 Furosemide (Lasix) 20 mg 1X ONCE IVP Last administered on 10/09/16 16:54; Start 10/09/16 at 15:00; Stop 10/09/16 at 15:01; Status DC Urea ([place] Lo 40, X-Viate) 1 alejandro DAILY TP Last administered on 10/10/16 11:14; Start 10/09/16 at 18:00 Nystatin 5 ml [id number] ; Start 10/10/16 at 13:00 Active Scripts Active Reported Isopto Tears (Hypromellose) 15 Ml Drops 15 Ml OP Oxycodone Hcl 10 Mg Tablet 1 Tab PO QID Ocuvite Tablet (Vit A,C & E/Lutein/Minerals) 1 Each Tablet 1 Each PO Dulcolax (Bisacodyl) 10 Mg Supp.rect 10 Mg RC PRN DAILY PRN Milk Of Magnesia (Magnesium Hydroxide) 400 Mg/5 Ml Oral.susp 400 Mg PO Simvastatin 20 Mg Tablet 1 Tab PO QHS Refresh Optive Eye Drops (Carboxymethylcellulos/Glycerin) 15 Ml Drops 1 Drop EACHEYE BID Tamsulosin Hcl 0.4 Mg Cap.er.24h 1 Cap PO DAILY Potassium Chloride Oral Liquid (Potassium Chloride) 20 Meq/15 Ml Liquid 10 Meq PEG DAILY Aspir 81 (Aspirin) 81 Mg Tablet.dr 1 Tab PO DAILY Furosemide 40 Mg Tablet 1 Tab PO DAILY Meloxicam 7.5 Mg Tablet 1 Tab PO DAILY Trazodone Hcl 50 Mg Tablet 1 Tab PO QHS Mucinex (Guaifenesin) 600 Mg Tablet.er 600 Mg PO Vitals/I & O Vital Sign - Last 24 Hours 10/09/16 10/09/16 10/09/16 10/09/16 15:00 19:00 20:00 23:00 Temp 98.9 99.0 98.9 99.0 Pulse 95 96 Resp 20 20 B/P 162/57 141/60 Pulse Ox 93 90 O2 Delivery Off Unit Nasal Cannula Nasal Cannula Nasal Cannula O2 Flow Rate 5.0 10/10/16 10/10/16 10/10/16 10/10/16 03:00 07:25 08:00 09:00 Temp 102.0 98.2 102.0 98.2 Pulse 88 74 74 Resp 20 24 B/P 136/56 143/51 143/51 Pulse Ox 93 94 O2 Delivery Nasal Cannula Nasal Cannula Nasal Cannula O2 Flow Rate 5.0 5.0 10/10/16 10:30 Temp 97.5 97.5 Pulse 73 Resp 24 B/P 133/50 Pulse Ox 93 O2 Delivery Nasal Cannula O2 Flow Rate 5.0 Intake and Output 10/09/16 10/09/16 10/10/16 15:00 23:00 07:00 Intake Total 300 ml 3177 ml 0 ml Output Total 400 ml Balance 300 ml 3177 ml -400 ml RODRIGUE MAYNARD MD Oct 10, 2016 12:32
[2016-10-10 12:40] LABS: CALCIUM 8.3 mg/dL (8.5-10.1); CREATININE 0.7 mg/dL (0.7-1.3); GFR 109.9; POTASSIUM 3.4 mmol/L (3.5-5.1)
--- NOTE | 2016-10-10 12:47 | PDOC ---
Infectious Disease Note Subjective Subjective Fever 102.0 Vital Sign Vital Signs Vital Signs Date Time Temp Pulse Resp B/P Pulse Ox O2 Delivery O2 Flow Rate FiO2 10/10/16 10:30 97.5 73 24 133/50 93 Nasal Cannula 5.0 97.5 Physical Exam PHYSICAL EXAM GENERAL: Lethargic, NAD HEENT: Oral cavity dry LUNGS: Upper airway secretions. 6LNC O2 HEART: S1S2 ABD: Obese, soft, No grimace or guarding to palpation. PEG : [place]. Scrotal swelling EXT: BLE edema. Knee brace bilat. 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 SKIN: No rash IV: ok Labs Lab Laboratory Tests Test 10/10/16 11:06 White Blood Count 13.2x10^3/uL (4.0-11.0) Red Blood Count 3.43x10^6/uL (4.30-5.70) Hemoglobin 10.4g/dL (13.0-17.5) Hematocrit 31.2% (39.0-53.0) Mean Corpuscular Volume 91fL (79-100) Mean Corpuscular Hemoglobin 30pg (25-35) Mean Corpuscular Hemoglobin Concent 33g/dL (31-37) Red Cell Distribution Width 14.0% (11.5-14.5) Platelet Count 215x10^3/uL (140-400) Neutrophils (%) (Auto) 80% (31-73) Lymphocytes (%) (Auto) 9% (24-48) Monocytes (%) (Auto) 7% (0-9) Eosinophils (%) (Auto) 4% (0-3) Basophils (%) (Auto) 1% (0-3) Neutrophils # (Auto) 10.5x10^3uL (1.8-7.7) Lymphocytes # (Auto) 1.2x10^3/uL (1.0-4.8) Monocytes # (Auto) 0.9x10^3/uL (0.0-1.1) Eosinophils # (Auto) 0.5x10^3/uL (0.0-0.7) Basophils # (Auto) 0.1x10^3/uL (0.0-0.2) CT CHEST, ABD/PELVIS IMPRESSION: 1. There is a tiny amount of pneumoperitoneum under the left hemidiaphragm. This may be secondary to instrumentation such as the gastrostomy catheter. No other site of perforation is identified and no inflammatory changes seen. Correlate clinically. 2. Very large right inguinal hernia containing the cecum and terminal ileum. No obstruction. 3. 4.1 cm infrarenal abdominal aortic aneurysm. Ongoing follow-up is recommended. 4. Bilateral lower lobe atelectasis. Superimposed pneumonia cannot be excluded. There is only trace pleural fluid. 5. Mild cardiomegaly. 6. A 3.5 right upper lobe nodule is likely benign but this small size. A follow-up could be considered in one year if there are strong risk factors. 7. A 1 cm indeterminate left adrenal nodule is likely a benign adenoma in the absence of known malignancy. 8. Fluid throughout the colon. Correlate for diarrhea. Objective Assessment Leukocytosis Fever Pneumonia Gout Debility Gluteal ulcer/decub Diarrhea. c. diff negative s/p nails debrided x 10 with microbleed to left hallux. 10/09 Inguinal hernia Plan Plan of Care Zosyn (10/06) and micafungin (10/08) Blood cults times 2 Add Vanc Monitor labs/cultures Attending Co-Sign Attending Co-Sign The patient was seen and interviewed as well as examined at the bedside. The chart was reviewed. The case was discussed. Agree with the plan of care. MACKENZIE WASHINGTON APRN Oct 10, 2016 12:47 RAÚL SCHMITT MD Oct 10, 2016 14:45
--- NOTE | 2016-10-10 13:18 | PDOC ---
PROGRESS NOTES Assessment Problems Medical Problems: (1) Altered mental status Status: Acute (2) Hospital acquired PNA Status: Acute Metabolic encephalopathy. Dementia, Prior PEG No evidence of acute CVA Plan Continue treatment of infection, medical diseases Will follow Subjective No complaints Objective Vital Signs Date Time Temp Pulse Resp B/P Pulse Ox O2 Delivery O2 Flow Rate FiO2 10/10/16 10:30 97.5 73 24 133/50 93 Nasal Cannula 5.0 97.5 Intake and Output 10/10/16 07:00 Intake Total 3477 ml Output Total 400 ml Balance 3077 ml Intake Oral 0 ml Tube Feeding 1947 ml Other 1530 ml Output Urine Total 400 ml # Bowel Movements 2 PHYSICAL EXAM Alert. Oriented to place and person. PERRL. EOMI. CN: no focal findings. Muscle tone: normal. Muscle strength: 4/5 DTR: 2+ Plantar reflex: flexor Gait: not examined in bed. Sensory exam: no abnormal findings. No cerebellar signs elicited. Review of Relevant I have reviewed the following items cassidy (where applicable) has been applied. Labs Laboratory Tests Test 10/09/16 09:10 10/10/16 11:06 White Blood Count 18.0x10^3/uL (4.0-11.0) 13.2x10^3/uL (4.0-11.0) Red Blood Count 3.58x10^6/uL (4.30-5.70) 3.43x10^6/uL (4.30-5.70) Hemoglobin 10.8g/dL (13.0-17.5) 10.4g/dL (13.0-17.5) Hematocrit 32.5% (39.0-53.0) 31.2% (39.0-53.0) Mean Corpuscular Volume 91fL (79-100) 91fL (79-100) Mean Corpuscular Hemoglobin 30pg (25-35) 30pg (25-35) Mean Corpuscular Hemoglobin Concent 33g/dL (31-37) 33g/dL (31-37) Red Cell Distribution Width 13.9% (11.5-14.5) 14.0% (11.5-14.5) Platelet Count 187x10^3/uL (140-400) 215x10^3/uL (140-400) Neutrophils (%) (Auto) 87% (31-73) 80% (31-73) Lymphocytes (%) (Auto) 5% (24-48) 9% (24-48) Monocytes (%) (Auto) 5% (0-9) 7% (0-9) Eosinophils (%) (Auto) 3% (0-3) 4% (0-3) Basophils (%) (Auto) 0% (0-3) 1% (0-3) Neutrophils # (Auto) 15.6x10^3uL (1.8-7.7) 10.5x10^3uL (1.8-7.7) Lymphocytes # (Auto) 0.9x10^3/uL (1.0-4.8) 1.2x10^3/uL (1.0-4.8) Monocytes # (Auto) 0.8x10^3/uL (0.0-1.1) 0.9x10^3/uL (0.0-1.1) Eosinophils # (Auto) 0.5x10^3/uL (0.0-0.7) 0.5x10^3/uL (0.0-0.7) Basophils # (Auto) 0.1x10^3/uL (0.0-0.2) 0.1x10^3/uL (0.0-0.2) Sodium Level 134mmol/L (136-145) 138mmol/L (136-145) Potassium Level 3.5mmol/L (3.5-5.1) 3.4mmol/L (3.5-5.1) Chloride Level 95mmol/L (98-107) 98mmol/L (98-107) Carbon Dioxide Level 35mmol/L (21-32) 36mmol/L (21-32) Anion Gap 4 (6-14) 4 (6-14) Blood Urea Nitrogen 16mg/dL (8-26) 23mg/dL (8-26) Creatinine 0.6mg/dL (0.7-1.3) 0.7mg/dL (0.7-1.3) Estimated GFR (Cockcroft-Gault) 131.3 109.9 Glucose Level 133mg/dL (70-99) 154mg/dL (70-99) Calcium Level 8.6mg/dL (8.5-10.1) 8.3mg/dL (8.5-10.1) Laboratory Tests Test 10/10/16 11:06 White Blood Count 13.2x10^3/uL (4.0-11.0) Red Blood Count 3.43x10^6/uL (4.30-5.70) Hemoglobin 10.4g/dL (13.0-17.5) Hematocrit 31.2% (39.0-53.0) Mean Corpuscular Volume 91fL (79-100) Mean Corpuscular Hemoglobin 30pg (25-35) Mean Corpuscular Hemoglobin Concent 33g/dL (31-37) Red Cell Distribution Width 14.0% (11.5-14.5) Platelet Count 215x10^3/uL (140-400) Neutrophils (%) (Auto) 80% (31-73) Lymphocytes (%) (Auto) 9% (24-48) Monocytes (%) (Auto) 7% (0-9) Eosinophils (%) (Auto) 4% (0-3) Basophils (%) (Auto) 1% (0-3) Neutrophils # (Auto) 10.5x10^3uL (1.8-7.7) Lymphocytes # (Auto) 1.2x10^3/uL (1.0-4.8) Monocytes # (Auto) 0.9x10^3/uL (0.0-1.1) Eosinophils # (Auto) 0.5x10^3/uL (0.0-0.7) Basophils # (Auto) 0.1x10^3/uL (0.0-0.2) Sodium Level 138mmol/L (136-145) Potassium Level 3.4mmol/L (3.5-5.1) Chloride Level 98mmol/L (98-107) Carbon Dioxide Level 36mmol/L (21-32) Anion Gap 4 (6-14) Blood Urea Nitrogen 23mg/dL (8-26) Creatinine 0.7mg/dL (0.7-1.3) Estimated GFR (Cockcroft-Gault) 109.9 Glucose Level 154mg/dL (70-99) Calcium Level 8.3mg/dL (8.5-10.1) Microbiology 10/05/16 Blood Culture - Preliminary, Resulted NO GROWTH AFTER 4 DAYS 10/05/16 Urine Culture - Final, Complete 10/05/16 Urine Culture Result 1 (JABARI) - Final, Complete Medications Current Medications Albuterol/ Ipratropium (Duoneb) 3 ml 1X ONCE NEB Last administered on 22:21; Start 10/05/16 at 22:15; Stop 10/05/16 at 22:50; Status DC Ondansetron HCl 4 mg 4 mg PRN Q8HRS PRN IV NAUSEA/VOMITING; Start 10/05/16 at 23 :00; Stop 10/06/16 at 22:59; Status DC Sodium Chloride (Iv Sodium Chloride 0.9% 1000ml Bag) 1,000 ml @ 100 mls/hr Q10H IV Last administered on 10/06/16 18:59; Start 10/05/16 at 22:59; Stop at 22:58; Status DC Albuterol/ Ipratropium 3 ml 3 ml RTQID NEB Last administered on 10/07/16 07:47 ; Start 10/06/16 at 08:00; Stop 10/07/16 at 07:59; Status DC Ceftriaxone Sodium 1 gm/ Sodium Chloride 50 ml @ 100 mls/hr Q24H IV ; Start 10/06/16 at 22:00; Stop 10/06/16 at 22:00; Status DC Levofloxacin/ Dextrose (LEVAQUIN 750mg PREMIX) 150 ml @ 100 mls/hr 1X ONCE IV Last administered on 10/06/16 01:05; Start 10/05/16 at 23:30; Stop 10/06/16 at 00:59; Status DC Vancomycin HCl 1 each 1 each PRN DAILY PRN MC SEE COMMENTS Last administered on 10/07/16 14:14; Start 10/05/16 at 23:00; Stop 10/08/16 at 18:52; Status DC Ceftriaxone Sodium 50 ml @ 100 mls/hr 1X ONCE IV Last administered on 01:05; Start 10/05/16 at 23:30; Stop 10/05/16 at 23:59; Status DC Vancomycin HCl 2 gm/Sodium Chloride 500 ml @ 250 mls/hr 1X ONCE IV Last administered on 10/05/16 23:26; Start 10/06/16 at 00:00; Stop 10/06/16 at 01:59; Status DC Vancomycin HCl/ Sodium Chloride (Iv Sodium Chloride 0.9% 250ml) 250 ml @ 167 mls/hr Q12H IV Last administered on 10/08/16 13:20; Start 10/06/16 at 12:00; Stop 10/08/16 at 18:52; Status DC Vancomycin HCl 1 each 1 each 1X ONCE MC ; Start 10/07/16 at 11:30; Stop 10/07/16 at 11:31; Status DC Piperacillin Sod/ Tazobactam Sod/ Sodium Chloride (Zosyn/Iv Sodium Chloride 0.9 % 50ml) 50 ml @ 100 mls/hr Q6HRS IV Last administered on 10/06/16 11:56; Start 10/06/16 at 11:00; Stop 10/06/16 at 15:24; Status DC Piperacillin Sod/ Tazobactam Sod (Zosyn Per Pharmacy) 1 each PRN DAILY PRN MC SEE COMMENTS; Start 10/06/16 at 10:15 Aspirin (Ecotrin) 81 mg DAILY PO ; Start 10/06/16 at 11:30; Stop 10/06/16 at 11:30 ; Status DC Bisacodyl (Dulcolax Supp) 10 mg PRN DAILY PRN RC CONSTIPATION; Start 10/06/16 at 10:15 Furosemide (Lasix) 40 mg DAILY PO Last administered on 10/10/16 09:01; Start 10/06/16 at 11:30 Guaifenesin (Mucinex) 600 mg BID PO ; Start 10/06/16 at 11:30; Stop 10/06/16 at 11 :30; Status DC Potassium Chloride (KCl Oral Soln) 10 meq DAILY PEG Last administered on 09:01; Start 10/06/16 at 11:30 Simvastatin (Zocor) 20 mg QHS PO Last administered on 10/09/16 22:11; Start at 21:00 Tamsulosin HCl (Flomax) 0.4 mg DAILY PO Last administered on 10/07/16 08:58; Start 10/06/16 at 11:30; Stop 10/08/16 at 10:18; Status DC Multivitamins/ Minerals (Ocuvite Lutein) 1 cap DAILY PO Last administered on 09:04; Start 10/06/16 at 11:00 Artificial Tears (Artificial Tears) 1 drop PRN BID PRN OU DRY EYE; Start at 10:30 Aspirin (Children'S Aspirin) 81 mg DAILYWBKFT PO Last administered on 10/08/16 09:00; Start 10/06/16 at 11:30; Stop 10/08/16 at 11:31; Status DC Guaifenesin (Robitussin) 200 mg QID PO Last administered on 10/10/16 09:00; Start 10/06/16 at 11:30 Furosemide (Lasix) 40 mg 1X ONCE IVP Last administered on 10/06/16 12:01; Start 10/06/16 at 12:00; Stop 10/06/16 at 12:01; Status DC Acetaminophen (Tylenol) 650 mg PRN Q6HRS PRN PEG MILD PAIN / TEMP Last administered on 10/10/16 09:42; Start 10/06/16 at 12:15 Ondansetron HCl (Zofran) 4 mg PRN Q6HRS PRN IV NAUSEA/VOMITING; Start 10/06/16 at 12:15 Enoxaparin Sodium (Lovenox 40mg Syringe) 40 mg Q24H SQ Last administered on 14:18; Start 10/06/16 at 13:00 Nystatin 1 alejandro 1 alejandro BID TP Last administered on 10/10/16 09:00; Start at 14:30 Piperacillin Sod/ Tazobactam Sod/ Sodium Chloride (Zosyn/Iv Sodium Chloride 0.9 % 100ml) 100 ml @ 200 mls/hr Q6HRS IV Last administered on 10/10/16 11:14; Start 10/06/16 at 18:00 Meloxicam (Mobic) 7.5 mg DAILY PO Last administered on 10/10/16 09:01; Start 10/07/16 at 10:00 Acetaminophen/ Hydrocodone Bitart (Lortab 5/325) 1 tab PRN Q4HRS PRN PO PAIN MILD TO MOD Last administered on 10/09/16 08:59; Start 10/07/16 at 10:45 Furosemide (Lasix) 20 mg 1X ONCE IVP Last administered on 10/07/16 18:24; Start 10/07/16 at 12:00; Stop 10/07/16 at 12:01; Status DC Digoxin 500 mcg 500 mcg 1X ONCE IV Last administered on 10/07/16 22:38; Start 10/07/16 at 22:15; Stop 10/07/16 at 22:17; Status DC Micafungin Sodium/ Dextrose (Mycamine) 100 ml @ 100 mls/hr Q24H IV Last administered on 10/10/16 11:14; Start 10/08/16 at 09:00 Iohexol (Omnipaque 240 Mg/ml) 30 ml 1X ONCE PO Last administered on 10/08/16 11:47; Start 10/08/16 at 09:15; Stop 10/08/16 at 09:18; Status DC Iohexol (Omnipaque 300 Mg/ml) 75 ml 1X ONCE IV Last administered on 10/08/16 11:46; Start 10/08/16 at 09:15; Stop 10/08/16 at 09:18; Status DC Finasteride (Proscar) 5 mg DAILY PO Last administered on 10/10/16 09:01; Start 10/09/16 at 09:00 Methylprednisolone Acetate (Depo-Medrol 40mg Vial) 40 mg 1X ONCE IM ; Start 10/08/16 at 10:45; Stop 10/08/16 at 10:53; Status DC Methylprednisolone Acetate (Depo-Medrol 40mg Vial) 40 mg 1X ONCE IM ; Start 10/08/16 at 10:45; Stop 10/08/16 at 10:53; Status DC Bupivacaine HCl (Sensorcaine-Mpf 0.25%) 10 ml 1X ONCE IJ ; Start 10/08/16 at 10: 45; Stop 10/08/16 at 10:53; Status DC Digoxin (Lanoxin) 125 mcg DAILY PO Last administered on 10/10/16 09:00; Start 10/08/16 at 11:30 Aspirin (Children'S Aspirin) 325 mg DAILYWBKFT PO Last administered on 12:38; Start 10/08/16 at 11:30; Stop 10/08/16 at 13:30; Status DC Lactobacillus Acidophilus (Bacid, Danielle-Bid) 1 tab DAILY PO Last administered on 10/10/16 09:00; Start 10/08/16 at 13:00 Aspirin (Children'S Aspirin) 324 mg DAILYWBKFT PO Last administered on 09:01; Start 10/08/16 at 13:30 Oxycodone/ Acetaminophen (Percocet 10/325) 1 tab PRN Q6HRS PRN PO PAIN; Start 10/09/16 at 10:30 Furosemide (Lasix) 20 mg 1X ONCE IVP Last administered on 10/09/16 16:54; Start 10/09/16 at 15:00; Stop 10/09/16 at 15:01; Status DC Urea ([place] Lo 40, X-Viate) 1 alejandro DAILY TP Last administered on 10/10/16 11:14; Start 10/09/16 at 18:00 Nystatin 5 ml [id number] ; Start 10/10/16 at 13:00 Active Scripts Active Reported Isopto Tears (Hypromellose) 15 Ml Drops 15 Ml OP Oxycodone Hcl 10 Mg Tablet 1 Tab PO QID Ocuvite Tablet (Vit A,C & E/Lutein/Minerals) 1 Each Tablet 1 Each PO Dulcolax (Bisacodyl) 10 Mg Supp.rect 10 Mg RC PRN DAILY PRN Milk Of Magnesia (Magnesium Hydroxide) 400 Mg/5 Ml Oral.susp 400 Mg PO Simvastatin 20 Mg Tablet 1 Tab PO QHS Refresh Optive Eye Drops (Carboxymethylcellulos/Glycerin) 15 Ml Drops 1 Drop EACHEYE BID Tamsulosin Hcl 0.4 Mg Cap.er.24h 1 Cap PO DAILY Potassium Chloride Oral Liquid (Potassium Chloride) 20 Meq/15 Ml Liquid 10 Meq PEG DAILY Aspir 81 (Aspirin) 81 Mg Tablet.dr 1 Tab PO DAILY Furosemide 40 Mg Tablet 1 Tab PO DAILY Meloxicam 7.5 Mg Tablet 1 Tab PO DAILY Trazodone Hcl 50 Mg Tablet 1 Tab PO QHS Mucinex (Guaifenesin) 600 Mg Tablet.er 600 Mg PO Vitals/I & O Vital Sign - Last 24 Hours 10/09/16 10/09/16 10/09/16 10/09/16 15:00 19:00 20:00 23:00 Temp 98.9 99.0 98.9 99.0 Pulse 95 96 Resp 20 20 B/P 162/57 141/60 Pulse Ox 93 90 O2 Delivery Off Unit Nasal Cannula Nasal Cannula Nasal Cannula O2 Flow Rate 5.0 10/10/16 10/10/16 10/10/16 10/10/16 03:00 07:25 08:00 09:00 Temp 102.0 98.2 102.0 98.2 Pulse 88 74 74 Resp 20 24 B/P 136/56 143/51 143/51 Pulse Ox 93 94 O2 Delivery Nasal Cannula Nasal Cannula Nasal Cannula O2 Flow Rate 5.0 5.0 10/10/16 10:30 Temp 97.5 97.5 Pulse 73 Resp 24 B/P 133/50 Pulse Ox 93 O2 Delivery Nasal Cannula O2 Flow Rate 5.0 Intake and Output 10/09/16 10/09/16 10/10/16 15:00 23:00 07:00 Intake Total 300 ml 3177 ml 0 ml Output Total 400 ml Balance 300 ml 3177 ml -400 ml Images Brain MRI w/o contrast: No acute findings. EEG on 10/07: moderate encephalopathy. THELMA GUTIERREZ MD Oct 10, 2016 13:18
--- NOTE | 2016-10-10 13:41 | PDOC ---
PROGRESS NOTES Chief Complaint Chief Complaint 1. AMS, metabolic encephalopathy likely , 2/2 to 2 or sedative meds in rehab 2. acute resp failure with hypoxia, 2/2 HCAP? 3. sepsis with HCAP? 4. h/o CAD with CABG 5. CHF, ef 50% . 6 htn 7. hld 8 BPH sinclair 9. dysphasia with PEG recently 10. baseline mild dementia 11. recent hallucination with PNA 12. h/o CVA wo weakness 13. gout, OA 14. RAPID Afib, new 15. orthostatic hypotension 16. stable AAA 4CM plan: given pt was recently in another hosp for 3 weeks , got records pulm, neuro, card, VASCUlar, sx consulted 2. dc vanco, add micafungin and zosyn, ID consult, carmona CT 10/08, check cdiff neg 3. lasix iv x1 as per pulm cont home po lasix 4. hold trazodone, add NSADIS for gout, low dose lortab bipap prn resume PEG feeding, get swallow eval,pt failed dvt ppx ptot dig 125mcg daily as per card head CT neg. EEG , MRI done, neg check uric acid, neg dc flomax, add finesteride. dr. Mason consult, will do knee injection for OA when wbc better vascular consulted, no intervention, fu in 6months sx consulted for pneumoperitonum, 2/2 PEG. no intervention talked to family at bedside. History of Present Illness History of Present Illness mild cough, off bipap. more confused since 10/09, likely asp too waking up since 10/06, baseline now, severe hearing problem, answer questions c/p chronic gout joint pain, OA fever 10/08, then 10/10 tachycardia last night, got dig 3 times diarrhea 10/08 Vitals Vitals Vital Signs Date Time Temp Pulse Resp B/P Pulse Ox O2 Delivery O2 Flow Rate FiO2 10/10/16 10:30 97.5 73 24 133/50 93 Nasal Cannula 5.0 97.5 Physical Exam General: Alert, No acute distress, Other (unable to understand, poor historian. ) Heart: Regular rate, Normal S1, Normal S2 Lungs: Other (rhonchi) Abdomen: Soft, No tenderness, Other (ND, peg tube in place) Extremities: No clubbing, No cyanosis Skin: No breakdown, No significant lesion Labs LABS Laboratory Tests Test 10/10/16 11:06 White Blood Count 13.2x10^3/uL (4.0-11.0) Red Blood Count 3.43x10^6/uL (4.30-5.70) Hemoglobin 10.4g/dL (13.0-17.5) Hematocrit 31.2% (39.0-53.0) Mean Corpuscular Volume 91fL (79-100) Mean Corpuscular Hemoglobin 30pg (25-35) Mean Corpuscular Hemoglobin Concent 33g/dL (31-37) Red Cell Distribution Width 14.0% (11.5-14.5) Platelet Count 215x10^3/uL (140-400) Neutrophils (%) (Auto) 80% (31-73) Lymphocytes (%) (Auto) 9% (24-48) Monocytes (%) (Auto) 7% (0-9) Eosinophils (%) (Auto) 4% (0-3) Basophils (%) (Auto) 1% (0-3) Neutrophils # (Auto) 10.5x10^3uL (1.8-7.7) Lymphocytes # (Auto) 1.2x10^3/uL (1.0-4.8) Monocytes # (Auto) 0.9x10^3/uL (0.0-1.1) Eosinophils # (Auto) 0.5x10^3/uL (0.0-0.7) Basophils # (Auto) 0.1x10^3/uL (0.0-0.2) Sodium Level 138mmol/L (136-145) Potassium Level 3.4mmol/L (3.5-5.1) Chloride Level 98mmol/L (98-107) Carbon Dioxide Level 36mmol/L (21-32) Anion Gap 4 (6-14) Blood Urea Nitrogen 23mg/dL (8-26) Creatinine 0.7mg/dL (0.7-1.3) Estimated GFR (Cockcroft-Gault) 109.9 Glucose Level 154mg/dL (70-99) Calcium Level 8.3mg/dL (8.5-10.1) Review of Systems Review of Systems no chills, sob or chest pain Assessment and Plan Assessmemt and Plan Problems Medical Problems: (1) Altered mental status Status: Acute (2) Hospital acquired PNA Status: Acute Problems: Comment Review of Relevant I have reviewed the following items cassidy (where applicable) has been applied. Labs Laboratory Tests Test 10/09/16 09:10 10/10/16 11:06 White Blood Count 18.0x10^3/uL (4.0-11.0) 13.2x10^3/uL (4.0-11.0) Red Blood Count 3.58x10^6/uL (4.30-5.70) 3.43x10^6/uL (4.30-5.70) Hemoglobin 10.8g/dL (13.0-17.5) 10.4g/dL (13.0-17.5) Hematocrit 32.5% (39.0-53.0) 31.2% (39.0-53.0) Mean Corpuscular Volume 91fL (79-100) 91fL (79-100) Mean Corpuscular Hemoglobin 30pg (25-35) 30pg (25-35) Mean Corpuscular Hemoglobin Concent 33g/dL (31-37) 33g/dL (31-37) Red Cell Distribution Width 13.9% (11.5-14.5) 14.0% (11.5-14.5) Platelet Count 187x10^3/uL (140-400) 215x10^3/uL (140-400) Neutrophils (%) (Auto) 87% (31-73) 80% (31-73) Lymphocytes (%) (Auto) 5% (24-48) 9% (24-48) Monocytes (%) (Auto) 5% (0-9) 7% (0-9) Eosinophils (%) (Auto) 3% (0-3) 4% (0-3) Basophils (%) (Auto) 0% (0-3) 1% (0-3) Neutrophils # (Auto) 15.6x10^3uL (1.8-7.7) 10.5x10^3uL (1.8-7.7) Lymphocytes # (Auto) 0.9x10^3/uL (1.0-4.8) 1.2x10^3/uL (1.0-4.8) Monocytes # (Auto) 0.8x10^3/uL (0.0-1.1) 0.9x10^3/uL (0.0-1.1) Eosinophils # (Auto) 0.5x10^3/uL (0.0-0.7) 0.5x10^3/uL (0.0-0.7) Basophils # (Auto) 0.1x10^3/uL (0.0-0.2) 0.1x10^3/uL (0.0-0.2) Sodium Level 134mmol/L (136-145) 138mmol/L (136-145) Potassium Level 3.5mmol/L (3.5-5.1) 3.4mmol/L (3.5-5.1) Chloride Level 95mmol/L (98-107) 98mmol/L (98-107) Carbon Dioxide Level 35mmol/L (21-32) 36mmol/L (21-32) Anion Gap 4 (6-14) 4 (6-14) Blood Urea Nitrogen 16mg/dL (8-26) 23mg/dL (8-26) Creatinine 0.6mg/dL (0.7-1.3) 0.7mg/dL (0.7-1.3) Estimated GFR (Cockcroft-Gault) 131.3 109.9 Glucose Level 133mg/dL (70-99) 154mg/dL (70-99) Calcium Level 8.6mg/dL (8.5-10.1) 8.3mg/dL (8.5-10.1) Laboratory Tests Test 10/10/16 11:06 White Blood Count 13.2x10^3/uL (4.0-11.0) Red Blood Count 3.43x10^6/uL (4.30-5.70) Hemoglobin 10.4g/dL (13.0-17.5) Hematocrit 31.2% (39.0-53.0) Mean Corpuscular Volume 91fL (79-100) Mean Corpuscular Hemoglobin 30pg (25-35) Mean Corpuscular Hemoglobin Concent 33g/dL (31-37) Red Cell Distribution Width 14.0% (11.5-14.5) Platelet Count 215x10^3/uL (140-400) Neutrophils (%) (Auto) 80% (31-73) Lymphocytes (%) (Auto) 9% (24-48) Monocytes (%) (Auto) 7% (0-9) Eosinophils (%) (Auto) 4% (0-3) Basophils (%) (Auto) 1% (0-3) Neutrophils # (Auto) 10.5x10^3uL (1.8-7.7) Lymphocytes # (Auto) 1.2x10^3/uL (1.0-4.8) Monocytes # (Auto) 0.9x10^3/uL (0.0-1.1) Eosinophils # (Auto) 0.5x10^3/uL (0.0-0.7) Basophils # (Auto) 0.1x10^3/uL (0.0-0.2) Sodium Level 138mmol/L (136-145) Potassium Level 3.4mmol/L (3.5-5.1) Chloride Level 98mmol/L (98-107) Carbon Dioxide Level 36mmol/L (21-32) Anion Gap 4 (6-14) Blood Urea Nitrogen 23mg/dL (8-26) Creatinine 0.7mg/dL (0.7-1.3) Estimated GFR (Cockcroft-Gault) 109.9 Glucose Level 154mg/dL (70-99) Calcium Level 8.3mg/dL (8.5-10.1) Microbiology 10/05/16 Blood Culture - Preliminary, Resulted NO GROWTH AFTER 4 DAYS 10/05/16 Urine Culture - Final, Complete 10/05/16 Urine Culture Result 1 (JABARI) - Final, Complete Medications Current Medications Albuterol/ Ipratropium (Duoneb) 3 ml 1X ONCE NEB Last administered on t 22:21; Start 10/05/16 at 22:15; Stop 10/05/16 at 22:50; Status DC Ondansetron HCl 4 mg 4 mg PRN Q8HRS PRN IV NAUSEA/VOMITING; Start 10/05/16 at 23 :00; Stop 10/06/16 at 22:59; Status DC Sodium Chloride (Iv Sodium Chloride 0.9% 1000ml Bag) 1,000 ml @ 100 mls/hr Q10H IV Last administered on 10/06/16 18:59; Start 10/05/16 at 22:59; Stop at 22:58; Status DC Albuterol/ Ipratropium 3 ml 3 ml RTQID NEB Last administered on 10/07/16 07:47 ; Start 10/06/16 at 08:00; Stop 10/07/16 at 07:59; Status DC Ceftriaxone Sodium 1 gm/ Sodium Chloride 50 ml @ 100 mls/hr Q24H IV ; Start 10/06/16 at 22:00; Stop 10/06/16 at 22:00; Status DC Levofloxacin/ Dextrose (LEVAQUIN 750mg PREMIX) 150 ml @ 100 mls/hr 1X ONCE IV Last administered on 10/06/16 01:05; Start 10/05/16 at 23:30; Stop 10/06/16 at 00:59; Status DC Vancomycin HCl 1 each 1 each PRN DAILY PRN MC SEE COMMENTS Last administered on 10/07/16 14:14; Start 10/05/16 at 23:00; Stop 10/08/16 at 18:52; Status DC Ceftriaxone Sodium 50 ml @ 100 mls/hr 1X ONCE IV Last administered on 01:05; Start 10/05/16 at 23:30; Stop 10/05/16 at 23:59; Status DC Vancomycin HCl 2 gm/Sodium Chloride 500 ml @ 250 mls/hr 1X ONCE IV Last administered on 10/05/16 23:26; Start 10/06/16 at 00:00; Stop 10/06/16 at 01:59; Status DC Vancomycin HCl/ Sodium Chloride (Iv Sodium Chloride 0.9% 250ml) 250 ml @ 167 mls/hr Q12H IV Last administered on 10/08/16 13:20; Start 10/06/16 at 12:00; Stop 10/08/16 at 18:52; Status DC Vancomycin HCl 1 each 1 each 1X ONCE MC ; Start 10/07/16 at 11:30; Stop 10/07/16 at 11:31; Status DC Piperacillin Sod/ Tazobactam Sod/ Sodium Chloride (Zosyn/Iv Sodium Chloride 0.9 % 50ml) 50 ml @ 100 mls/hr Q6HRS IV Last administered on 3/7/17at 11:56; Start 10/06/16 at 11:00; Stop 10/06/16 at 15:24; Status DC Piperacillin Sod/ Tazobactam Sod (Zosyn Per Pharmacy) 1 each PRN DAILY PRN MC SEE COMMENTS; Start 10/06/16 at 10:15 Aspirin (Ecotrin) 81 mg DAILY PO ; Start 10/06/16 at 11:30; Stop 10/06/16 at 11:30 ; Status DC Bisacodyl (Dulcolax Supp) 10 mg PRN DAILY PRN RC CONSTIPATION; Start 10/06/16 at 10:15 Furosemide (Lasix) 40 mg DAILY PO Last administered on 10/10/16 09:01; Start 10/06/16 at 11:30 Guaifenesin (Mucinex) 600 mg BID PO ; Start 10/06/16 at 11:30; Stop 10/06/16 at 11 :30; Status DC Potassium Chloride (KCl Oral Soln) 10 meq DAILY PEG Last administered on 09:01; Start 10/06/16 at 11:30 Simvastatin (Zocor) 20 mg QHS PO Last administered on 10/09/16 22:11; Start at 21:00 Tamsulosin HCl (Flomax) 0.4 mg DAILY PO Last administered on 10/07/16 08:58; Start 10/06/16 at 11:30; Stop 10/08/16 at 10:18; Status DC Multivitamins/ Minerals (Ocuvite Lutein) 1 cap DAILY PO Last administered on 09:04; Start 10/06/16 at 11:00 Artificial Tears (Artificial Tears) 1 drop PRN BID PRN OU DRY EYE; Start at 10:30 Aspirin (Children'S Aspirin) 81 mg DAILYWBKFT PO Last administered on 10/08/16 09:00; Start 10/06/16 at 11:30; Stop 10/08/16 at 11:31; Status DC Guaifenesin (Robitussin) 200 mg QID PO Last administered on 10/10/16 09:00; Start 10/06/16 at 11:30 Furosemide (Lasix) 40 mg 1X ONCE IVP Last administered on 10/06/16 12:01; Start 10/06/16 at 12:00; Stop 10/06/16 at 12:01; Status DC Acetaminophen (Tylenol) 650 mg PRN Q6HRS PRN PEG MILD PAIN / TEMP Last administered on 10/10/16 09:42; Start 10/06/16 at 12:15 Ondansetron HCl (Zofran) 4 mg PRN Q6HRS PRN IV NAUSEA/VOMITING; Start 10/06/16 at 12:15 Enoxaparin Sodium (Lovenox 40mg Syringe) 40 mg Q24H SQ Last administered on 14:18; Start 10/06/16 at 13:00 Nystatin 1 alejandro 1 alejandro BID TP Last administered on 10/10/16 09:00; Start at 14:30 Piperacillin Sod/ Tazobactam Sod/ Sodium Chloride (Zosyn/Iv Sodium Chloride 0.9 % 100ml) 100 ml @ 200 mls/hr Q6HRS IV Last administered on 10/10/16 11:14; Start 10/06/16 at 18:00 Meloxicam (Mobic) 7.5 mg DAILY PO Last administered on 10/10/16 09:01; Start 10/07/16 at 10:00 Acetaminophen/ Hydrocodone Bitart (Lortab 5/325) 1 tab PRN Q4HRS PRN PO MODERATE - SEVERE PAIN Last administered on 10/09/16 08:59; Start 10/07/16 at 10 :45 Furosemide (Lasix) 20 mg 1X ONCE IVP Last administered on 10/07/16 18:24; Start 10/07/16 at 12:00; Stop 10/07/16 at 12:01; Status DC Digoxin 500 mcg 500 mcg 1X ONCE IV Last administered on 10/07/16 22:38; Start 10/07/16 at 22:15; Stop 10/07/16 at 22:17; Status DC Micafungin Sodium/ Dextrose (Mycamine) 100 ml @ 100 mls/hr Q24H IV Last administered on 10/10/16 11:14; Start 10/08/16 at 09:00 Iohexol (Omnipaque 240 Mg/ml) 30 ml 1X ONCE PO Last administered on 10/08/16 11:47; Start 10/08/16 at 09:15; Stop 10/08/16 at 09:18; Status DC Iohexol (Omnipaque 300 Mg/ml) 75 ml 1X ONCE IV Last administered on 10/08/16 11:46; Start 10/08/16 at 09:15; Stop 10/08/16 at 09:18; Status DC Finasteride (Proscar) 5 mg DAILY PO Last administered on 10/10/16 09:01; Start 10/09/16 at 09:00 Methylprednisolone Acetate (Depo-Medrol 40mg Vial) 40 mg 1X ONCE IM ; Start 10/08/16 at 10:45; Stop 10/08/16 at 10:53; Status DC Methylprednisolone Acetate (Depo-Medrol 40mg Vial) 40 mg 1X ONCE IM ; Start 10/08/16 at 10:45; Stop 10/08/16 at 10:53; Status DC Bupivacaine HCl (Sensorcaine-Mpf 0.25%) 10 ml 1X ONCE IJ ; Start 10/08/16 at 10: 45; Stop 10/08/16 at 10:53; Status DC Digoxin (Lanoxin) 125 mcg DAILY PO Last administered on 10/10/16 09:00; Start 10/08/16 at 11:30 Aspirin (Children'S Aspirin) 325 mg DAILYWBKFT PO Last administered on 12:38; Start 10/08/16 at 11:30; Stop 10/08/16 at 13:30; Status DC Lactobacillus Acidophilus (Bacid, Danielle-Bid) 1 tab DAILY PO Last administered on 10/10/16 09:00; Start 10/08/16 at 13:00 Aspirin (Children'S Aspirin) 324 mg DAILYWBKFT PO Last administered on 09:01; Start 10/08/16 at 13:30 Oxycodone/ Acetaminophen (Percocet 10/325) 1 tab PRN Q6HRS PRN PO PAIN; Start 10/09/16 at 10:30 Furosemide (Lasix) 20 mg 1X ONCE IVP Last administered on 10/09/16 16:54; Start 10/09/16 at 15:00; Stop 10/09/16 at 15:01; Status DC Urea (Ritu Lo 40, X-Viate) 1 alejandro DAILY TP Last administered on 3/11/17at 11:14; Start 10/09/16 at 18:00 Nystatin 5 ml [id number] [id number] ; Start 10/10/16 at 13:00 Active Scripts Active Reported Isopto Tears (Hypromellose) 15 Ml Drops 15 Ml OP Oxycodone Hcl 10 Mg Tablet 1 Tab PO QID Ocuvite Tablet (Vit A,C & E/Lutein/Minerals) 1 Each Tablet 1 Each PO Dulcolax (Bisacodyl) 10 Mg Supp.rect 10 Mg RC PRN DAILY PRN Milk Of Magnesia (Magnesium Hydroxide) 400 Mg/5 Ml Oral.susp 400 Mg PO Simvastatin 20 Mg Tablet 1 Tab PO QHS Refresh Optive Eye Drops (Carboxymethylcellulos/Glycerin) 15 Ml Drops 1 Drop EACHEYE BID Tamsulosin Hcl 0.4 Mg Cap.er.24h 1 Cap PO DAILY Potassium Chloride Oral Liquid (Potassium Chloride) 20 Meq/15 Ml Liquid 10 Meq PEG DAILY Aspir 81 (Aspirin) 81 Mg Tablet.dr 1 Tab PO DAILY Furosemide 40 Mg Tablet 1 Tab PO DAILY Meloxicam 7.5 Mg Tablet 1 Tab PO DAILY Trazodone Hcl 50 Mg Tablet 1 Tab PO QHS Mucinex (Guaifenesin) 600 Mg Tablet.er 600 Mg PO Vitals/I & O Vital Sign - Last 24 Hours 10/09/16 10/09/16 10/09/16 10/09/16 15:00 19:00 20:00 23:00 Temp 98.9 99.0 98.9 99.0 Pulse 95 96 Resp 20 20 B/P 162/57 141/60 Pulse Ox 93 90 O2 Delivery Off Unit Nasal Cannula Nasal Cannula Nasal Cannula O2 Flow Rate 5.0 10/10/16 10/10/16 10/10/16 10/10/16 03:00 07:25 08:00 09:00 Temp 102.0 98.2 102.0 98.2 Pulse 88 74 74 Resp 20 24 B/P 136/56 143/51 143/51 Pulse Ox 93 94 O2 Delivery Nasal Cannula Nasal Cannula Nasal Cannula O2 Flow Rate 5.0 5.0 10/10/16 10:30 Temp 97.5 97.5 Pulse 73 Resp 24 B/P 133/50 Pulse Ox 93 O2 Delivery Nasal Cannula O2 Flow Rate 5.0 Intake and Output 10/09/16 10/09/16 10/10/16 15:00 23:00 07:00 Intake Total 300 ml 3177 ml 0 ml Output Total 400 ml Balance 300 ml 3177 ml -400 ml EDWARDO AMES MD Oct 10, 2016 13:41
[2016-10-10] MEDS: NYSTATIN 100,000 UNITS/ML 5 ML ORAL.SUSP. SWSW SCH ×3 (14:08→21:05)
[2016-10-10] MEDS: ENOXAPARIN 40 MG/0.4 ML DISP.SYRIN. SQ SCH (14:09)
[2016-10-10] MEDS: POTASSIUM CHLORIDE 10MEQ 100 ML IV SCH ×4 (14:10→17:00)
[2016-10-10 14:35] VITALS: BP 130/47
[2016-10-10] MEDS ORDERED: VANCOMYCIN 2 GM in IV NORMAL SALINE 500ML BAG 500 ML IV ONE (15:30)
[2016-10-10] MEDS: VANCOMYCIN PER PHARMACY MC PRN (15:36)
[2016-10-10 19:00] VITALS: BP 150/63
[2016-10-10 20:17] LABS: NEG OBC FOB NEG; POS OBC FOB POS
[2016-10-10] MEDS: SIMVASTATIN 20 MG TABLET PO SCH (21:05)
[2016-10-10 23:00] VITALS: BP 137/52
[2016-10-11] MEDS: HYDROCODONE/APAP 5/325MG TABLET. PO PRN ×3 (03:23→20:42)
[2016-10-11 03:31] VITALS: BP 142/54
[2016-10-11] MEDS: VANCOMYCIN 1.25 GM in IV NORMAL SALINE 250ML 250 ML IV SCH ×2 (04:28→14:41)
[2016-10-11 05:25] LABS: MAGNESIUM 2.1 mg/dL (1.8-2.4); PHOSPHORUS 2.8 mg/dL (2.6-4.7)
[2016-10-11] MEDS: PIPERACILLIN/TAZOBACTAM 4.5 GM in IV NORMAL SALINE 100ML 100 ML IV SCH ×4 (06:04→23:09)
[2016-10-11 07:20] VITALS: BP 144/51
[2016-10-11 07:44] LABS: CALCIUM 8.3 mg/dL (8.5-10.1); CREATININE 0.8 mg/dL (0.7-1.3); GFR 94.2; POTASSIUM 3.7 mmol/L (3.5-5.1)
[2016-10-11 07:58] LABS: BASO # 0.1 x10^3/uL (0.0-0.2); BASO % 1 % (0-3); EOS % 9 % (0-3); HEMATOCRIT 29.3 % (39.0-53.0); HEMOGLOBIN 9.6 g/dL (13.0-17.5); LYMPH # 1.2 x10^3/uL (1.0-4.8); LYMPH % 12 % (24-48); MEAN CORPUSCULAR HEMOGLOBIN 31 pg (25-35); MEAN CORPUSCULAR HGB CONC 33 g/dL (31-37); MEAN CORPUSCULAR VOLUME 94 fL (79-100); MONO % 6 % (0-9); NEUT % 72 % (31-73); PLATELET COUNT 209 x10^3/uL (140-400); RED BLOOD COUNT 3.14 x10^6/uL (4.30-5.70); RED CELL DISTRIBUTION WIDTH 14.3 % (11.5-14.5); WHITE BLOOD COUNT 10.5 x10^3/uL (4.0-11.0)
[2016-10-11] MEDS: GUAIFENESIN 200 MG/10 ML LIQUID. PO SCH ×4 (08:39→20:41)
[2016-10-11] MEDS: POLYVINYL ALCOHOL 1.4% OPHTH SOLUTION 15ML BOTTLE. OU PRN (08:39)
[2016-10-11] MEDS: POTASSIUM CHLORIDE 20 MEQ/15 ML ORAL LIQUID. PEG SCH (08:40)
[2016-10-11] MEDS: UREA 40% TOPICAL CREAM 28.3GM TUBE. TP SCH (08:40)
[2016-10-11] MEDS: MULTIVITAMIN EYE FORMULA CAPSULE. PO SCH (08:40)
[2016-10-11] MEDS: ASPIRIN 81 MG TAB.CHEW PO SCH (08:40)
[2016-10-11] MEDS: LACTOBACILLUS ACIDOPH & BULGAR 1 TABLET. PO SCH (08:40)
[2016-10-11] MEDS: MELOXICAM 7.5 MG TABLET PO SCH (08:40)
[2016-10-11] MEDS: FUROSEMIDE 40 MG TABLET PO SCH (08:41)
[2016-10-11] MEDS: NYSTATIN 100,000 UNITS/ML 5 ML ORAL.SUSP. SWSW SCH ×4 (08:41→20:41)
[2016-10-11] MEDS: FINASTERIDE 5 MG TABLET PO SCH (08:41)
[2016-10-11] MEDS: NYSTATIN TOPICAL POWDER 15GM BOTTLE. TP SCH ×2 (08:41→20:43)
[2016-10-11] MEDS: DIGOXIN 125 MCG TABLET PO SCH (08:41)
[2016-10-11] MEDS: MICAFUNGIN 100 MG in IV DEXTROSE 5% 100 ML IV SCH (08:46)
[2016-10-11 10:25] VITALS: BP 128/50
--- NOTE | 2016-10-11 11:15 | PDOC ---
PULMONARY PROGRESS NOTES Subjective looks better resolved fever Vitals Vital Signs Date Time Temp Pulse Resp B/P Pulse Ox O2 Delivery O2 Flow Rate FiO2 10/11/16 10:25 97.7 62 24 128/50 95 Nasal Cannula 5.0 97.7 General: Alert, No acute distress Lungs: Other (rhonchi) Cardiovascular: S1 Abdomen: Soft Neuro Exam: Alert Extremities: Other (1+edema) Skin: Warm Labs Laboratory Tests Test 10/10/16 11:06 10/10/16 17:10 10/11/16 04:17 White Blood Count 13.2x10^3/uL (4.0-11.0) 10.5x10^3/uL (4.0-11.0) Red Blood Count 3.43x10^6/uL (4.30-5.70) 3.14x10^6/uL (4.30-5.70) Hemoglobin 10.4g/dL (13.0-17.5) 9.6g/dL (13.0-17.5) Hematocrit 31.2% (39.0-53.0) 29.3% (39.0-53.0) Mean Corpuscular Volume 91fL (79-100) 94fL (79-100) Mean Corpuscular Hemoglobin 30pg (25-35) 31pg (25-35) Mean Corpuscular Hemoglobin Concent 33g/dL (31-37) 33g/dL (31-37) Red Cell Distribution Width 14.0% (11.5-14.5) 14.3% (11.5-14.5) Platelet Count 215x10^3/uL (140-400) 209x10^3/uL (140-400) Neutrophils (%) (Auto) 80% (31-73) 72% (31-73) Lymphocytes (%) (Auto) 9% (24-48) 12% (24-48) Monocytes (%) (Auto) 7% (0-9) 6% (0-9) Eosinophils (%) (Auto) 4% (0-3) 9% (0-3) Basophils (%) (Auto) 1% (0-3) 1% (0-3) Neutrophils # (Auto) 10.5x10^3uL (1.8-7.7) 7.6x10^3uL (1.8-7.7) Lymphocytes # (Auto) 1.2x10^3/uL (1.0-4.8) 1.2x10^3/uL (1.0-4.8) Monocytes # (Auto) 0.9x10^3/uL (0.0-1.1) 0.6x10^3/uL (0.0-1.1) Eosinophils # (Auto) 0.5x10^3/uL (0.0-0.7) 1.0x10^3/uL (0.0-0.7) Basophils # (Auto) 0.1x10^3/uL (0.0-0.2) 0.1x10^3/uL (0.0-0.2) Sodium Level 138mmol/L (136-145) 142mmol/L (136-145) Potassium Level 3.4mmol/L (3.5-5.1) 3.7mmol/L (3.5-5.1) Chloride Level 98mmol/L (98-107) 103mmol/L (98-107) Carbon Dioxide Level 36mmol/L (21-32) 34mmol/L (21-32) Anion Gap 4 (6-14) 5 (6-14) Blood Urea Nitrogen 23mg/dL (8-26) 25mg/dL (8-26) Creatinine 0.7mg/dL (0.7-1.3) 0.8mg/dL (0.7-1.3) Estimated GFR (Cockcroft-Gault) 109.9 94.2 Glucose Level 154mg/dL (70-99) 132mg/dL (70-99) Calcium Level 8.3mg/dL (8.5-10.1) 8.3mg/dL (8.5-10.1) Stool Occult Blood Negative (NEG) Phosphorus Level 2.8mg/dL (2.6-4.7) Magnesium Level 2.1mg/dL (1.8-2.4) Laboratory Tests Test 10/10/16 17:10 10/11/16 04:17 Stool Occult Blood Negative (NEG) White Blood Count 10.5x10^3/uL (4.0-11.0) Red Blood Count 3.14x10^6/uL (4.30-5.70) Hemoglobin 9.6g/dL (13.0-17.5) Hematocrit 29.3% (39.0-53.0) Mean Corpuscular Volume 94fL (79-100) Mean Corpuscular Hemoglobin 31pg (25-35) Mean Corpuscular Hemoglobin Concent 33g/dL (31-37) Red Cell Distribution Width 14.3% (11.5-14.5) Platelet Count 209x10^3/uL (140-400) Neutrophils (%) (Auto) 72% (31-73) Lymphocytes (%) (Auto) 12% (24-48) Monocytes (%) (Auto) 6% (0-9) Eosinophils (%) (Auto) 9% (0-3) Basophils (%) (Auto) 1% (0-3) Neutrophils # (Auto) 7.6x10^3uL (1.8-7.7) Lymphocytes # (Auto) 1.2x10^3/uL (1.0-4.8) Monocytes # (Auto) 0.6x10^3/uL (0.0-1.1) Eosinophils # (Auto) 1.0x10^3/uL (0.0-0.7) Basophils # (Auto) 0.1x10^3/uL (0.0-0.2) Sodium Level 142mmol/L (136-145) Potassium Level 3.7mmol/L (3.5-5.1) Chloride Level 103mmol/L (98-107) Carbon Dioxide Level 34mmol/L (21-32) Anion Gap 5 (6-14) Blood Urea Nitrogen 25mg/dL (8-26) Creatinine 0.8mg/dL (0.7-1.3) Estimated GFR (Cockcroft-Gault) 94.2 Glucose Level 132mg/dL (70-99) Calcium Level 8.3mg/dL (8.5-10.1) Phosphorus Level 2.8mg/dL (2.6-4.7) Magnesium Level 2.1mg/dL (1.8-2.4) Medications Active Scripts Medications Dose Route/Sig Days Date Category Isopto Tears (Hypromellose) 15 Ml Drops 15 Ml OP 10/06/16 Reported Oxycodone Hcl 10 Mg Tablet 1 Tab PO QID 10/06/16 Reported Ocuvite Tablet (Vit A,C & E/Lutein/Minerals) 1 Each Tablet 1 Each PO 10/06/16 Reported Dulcolax (Bisacodyl) 10 Mg Supp.rect 10 Mg RC PRN DAILY PRN 10/06/16 Reported Milk Of Magnesia (Magnesium Hydroxide) 400 Mg/5 Ml Oral.susp 400 Mg PO 10/06/16 Reported Simvastatin 20 Mg Tablet 1 Tab PO QHS 10/06/16 Reported Refresh Optive Eye Drops (Carboxymethylcellulos/Glycerin) 15 Ml Drops 1 Drop EACHEYE BID 10/06/16 Reported Tamsulosin Hcl 0.4 Mg Cap.er.24h 1 Cap PO DAILY 10/06/16 Reported Potassium Chloride Oral Liquid (Potassium Chloride) 20 Meq/15 Ml Liquid 10 Meq PEG DAILY 10/06/16 Reported Aspir 81 (Aspirin) 81 Mg Tablet.dr 1 Tab PO DAILY 10/06/16 Reported Furosemide 40 Mg Tablet 1 Tab PO DAILY 10/06/16 Reported Meloxicam 7.5 Mg Tablet 1 Tab PO DAILY 10/06/16 Reported Trazodone Hcl 50 Mg Tablet 1 Tab PO QHS 10/06/16 Reported Mucinex (Guaifenesin) 600 Mg Tablet.er 600 Mg PO 10/06/16 Reported Impression . 1. Acute hypoxic respiratory failure, I suspect related to left basilar pneumonia/ UTI. New fever since 10/08 despite improving CXR. ID following. Probably related to UTI with yeast 2. Questionable mild chronic obstructive pulmonary disease. 3. Mild hyponatremia. Could be dilutional. 4. Abnormal chest x-ray with mild cardiomegaly and volume loss, left lower lobe. 5. History of coronary artery disease. 6. History of chronic percutaneous endoscopic gastrostomy tube. He uses enteral nutrition as well as oral nutrition. According to daughter, he is a picky eater, so he does not meet his nutritional needs by oral intake only. 7. Leukocytosis,/ fever, improved Plan . 1. We will gradually wean the FiO2. 2. Ct chest with mild basal atelectasis 3. Continue broad-spectrum antibiotics per ID 4. Follow chest x-ray.10/08 with improving LLL volume loss 5. Nebulizer treatments as scheduled. 6. ct chest,abd/pelvis report reviewed. Pneumoperitoneum ? due to PEG, surgery following. d/w MARÍA Woods MD Oct 11, 2016 11:15
[2016-10-11] MEDS: ENOXAPARIN 40 MG/0.4 ML DISP.SYRIN. SQ SCH (11:58)
--- NOTE | 2016-10-11 12:37 | PDOC ---
PROGRESS NOTES Chief Complaint Chief Complaint 1. AMS, metabolic encephalopathy likely , 2/2 to 2 or sedative meds in rehab 2. acute resp failure with hypoxia, 2/2 HCAP? 3. sepsis with HCAP? 4. h/o CAD with CABG 5. CHF, ef 50% . 6 htn 7. hld 8 BPH sinclair 9. dysphasia with PEG recently 10. baseline mild dementia 11. recent hallucination with PNA 12. h/o CVA wo weakness 13. gout, OA 14. RAPID Afib, new 15. orthostatic hypotension 16. stable AAA 4CM plan: given pt was recently in another hosp for 3 weeks , got records pulm, neuro, card, VASCUlar, sx consulted 2. dc vanco, add micafungin and zosyn, ID consult, carmona CT 10/08, check cdiff neg 3. lasix iv x1 as per pulm cont home po lasix 4. hold trazodone, add NSADIS for gout, low dose lortab bipap prn resume PEG feeding, get swallow eval,pt failed dvt ppx, ptot dig 125mcg daily as per card head CT neg. EEG , MRI done, neg check uric acid, neg dc flomax, add finesteride. dr. Mason consult, will do knee injection for OA when wbc better vascular consulted, no intervention, fu in 6months sx consulted for pneumoperitonum, 2/2 PEG. no intervention talked to family at bedside. many specialists on board. monitor pulmanory function, cont treat HAP, encephalopathy on and off, hope dc to SNF soon History of Present Illness History of Present Illness mild cough, off bipap. more confused since 10/09, likely asp too. back to baseline good on 10/11 waking up since 10/06, baseline now, severe hearing problem, answer questions c/p chronic gout joint pain, OA fever 10/08, then 10/10 tachycardia last night, got dig 3 times diarrhea 10/08 Vitals Vitals Vital Signs Date Time Temp Pulse Resp B/P Pulse Ox O2 Delivery O2 Flow Rate FiO2 10/11/16 11:59 95 Nasal Cannula 5.0 10/11/16 10:25 97.7 62 24 128/50 97.7 Physical Exam General: Alert, No acute distress, Other (unable to understand, poor historian. ) Heart: Regular rate, Normal S1, Normal S2 Lungs: Other (rhonchi) Abdomen: Soft, No tenderness, Other (ND, peg tube in place) Extremities: No clubbing, No cyanosis Skin: No breakdown, No significant lesion Labs LABS Laboratory Tests Test 10/10/16 17:10 10/11/16 04:17 Stool Occult Blood Negative (NEG) White Blood Count 10.5x10^3/uL (4.0-11.0) Red Blood Count 3.14x10^6/uL (4.30-5.70) Hemoglobin 9.6g/dL (13.0-17.5) Hematocrit 29.3% (39.0-53.0) Mean Corpuscular Volume 94fL (79-100) Mean Corpuscular Hemoglobin 31pg (25-35) Mean Corpuscular Hemoglobin Concent 33g/dL (31-37) Red Cell Distribution Width 14.3% (11.5-14.5) Platelet Count 209x10^3/uL (140-400) Neutrophils (%) (Auto) 72% (31-73) Lymphocytes (%) (Auto) 12% (24-48) Monocytes (%) (Auto) 6% (0-9) Eosinophils (%) (Auto) 9% (0-3) Basophils (%) (Auto) 1% (0-3) Neutrophils # (Auto) 7.6x10^3uL (1.8-7.7) Lymphocytes # (Auto) 1.2x10^3/uL (1.0-4.8) Monocytes # (Auto) 0.6x10^3/uL (0.0-1.1) Eosinophils # (Auto) 1.0x10^3/uL (0.0-0.7) Basophils # (Auto) 0.1x10^3/uL (0.0-0.2) Sodium Level 142mmol/L (136-145) Potassium Level 3.7mmol/L (3.5-5.1) Chloride Level 103mmol/L (98-107) Carbon Dioxide Level 34mmol/L (21-32) Anion Gap 5 (6-14) Blood Urea Nitrogen 25mg/dL (8-26) Creatinine 0.8mg/dL (0.7-1.3) Estimated GFR (Cockcroft-Gault) 94.2 Glucose Level 132mg/dL (70-99) Calcium Level 8.3mg/dL (8.5-10.1) Phosphorus Level 2.8mg/dL (2.6-4.7) Magnesium Level 2.1mg/dL (1.8-2.4) Review of Systems Review of Systems no fever, chills, sob or chest pain Assessment and Plan Assessmemt and Plan Problems Medical Problems: (1) Altered mental status Status: Acute (2) Hospital acquired PNA Status: Acute Problems: Comment Review of Relevant I have reviewed the following items cassidy (where applicable) has been applied. Labs Laboratory Tests Test 10/10/16 11:06 10/10/16 17:10 10/11/16 04:17 White Blood Count 13.2x10^3/uL (4.0-11.0) 10.5x10^3/uL (4.0-11.0) Red Blood Count 3.43x10^6/uL (4.30-5.70) 3.14x10^6/uL (4.30-5.70) Hemoglobin 10.4g/dL (13.0-17.5) 9.6g/dL (13.0-17.5) Hematocrit 31.2% (39.0-53.0) 29.3% (39.0-53.0) Mean Corpuscular Volume 91fL (79-100) 94fL (79-100) Mean Corpuscular Hemoglobin 30pg (25-35) 31pg (25-35) Mean Corpuscular Hemoglobin Concent 33g/dL (31-37) 33g/dL (31-37) Red Cell Distribution Width 14.0% (11.5-14.5) 14.3% (11.5-14.5) Platelet Count 215x10^3/uL (140-400) 209x10^3/uL (140-400) Neutrophils (%) (Auto) 80% (31-73) 72% (31-73) Lymphocytes (%) (Auto) 9% (24-48) 12% (24-48) Monocytes (%) (Auto) 7% (0-9) 6% (0-9) Eosinophils (%) (Auto) 4% (0-3) 9% (0-3) Basophils (%) (Auto) 1% (0-3) 1% (0-3) Neutrophils # (Auto) 10.5x10^3uL (1.8-7.7) 7.6x10^3uL (1.8-7.7) Lymphocytes # (Auto) 1.2x10^3/uL (1.0-4.8) 1.2x10^3/uL (1.0-4.8) Monocytes # (Auto) 0.9x10^3/uL (0.0-1.1) 0.6x10^3/uL (0.0-1.1) Eosinophils # (Auto) 0.5x10^3/uL (0.0-0.7) 1.0x10^3/uL (0.0-0.7) Basophils # (Auto) 0.1x10^3/uL (0.0-0.2) 0.1x10^3/uL (0.0-0.2) Sodium Level 138mmol/L (136-145) 142mmol/L (136-145) Potassium Level 3.4mmol/L (3.5-5.1) 3.7mmol/L (3.5-5.1) Chloride Level 98mmol/L (98-107) 103mmol/L (98-107) Carbon Dioxide Level 36mmol/L (21-32) 34mmol/L (21-32) Anion Gap 4 (6-14) 5 (6-14) Blood Urea Nitrogen 23mg/dL (8-26) 25mg/dL (8-26) Creatinine 0.7mg/dL (0.7-1.3) 0.8mg/dL (0.7-1.3) Estimated GFR (Cockcroft-Gault) 109.9 94.2 Glucose Level 154mg/dL (70-99) 132mg/dL (70-99) Calcium Level 8.3mg/dL (8.5-10.1) 8.3mg/dL (8.5-10.1) Stool Occult Blood Negative (NEG) Phosphorus Level 2.8mg/dL (2.6-4.7) Magnesium Level 2.1mg/dL (1.8-2.4) Laboratory Tests Test 10/10/16 17:10 10/11/16 04:17 Stool Occult Blood Negative (NEG) White Blood Count 10.5x10^3/uL (4.0-11.0) Red Blood Count 3.14x10^6/uL (4.30-5.70) Hemoglobin 9.6g/dL (13.0-17.5) Hematocrit 29.3% (39.0-53.0) Mean Corpuscular Volume 94fL (79-100) Mean Corpuscular Hemoglobin 31pg (25-35) Mean Corpuscular Hemoglobin Concent 33g/dL (31-37) Red Cell Distribution Width 14.3% (11.5-14.5) Platelet Count 209x10^3/uL (140-400) Neutrophils (%) (Auto) 72% (31-73) Lymphocytes (%) (Auto) 12% (24-48) Monocytes (%) (Auto) 6% (0-9) Eosinophils (%) (Auto) 9% (0-3) Basophils (%) (Auto) 1% (0-3) Neutrophils # (Auto) 7.6x10^3uL (1.8-7.7) Lymphocytes # (Auto) 1.2x10^3/uL (1.0-4.8) Monocytes # (Auto) 0.6x10^3/uL (0.0-1.1) Eosinophils # (Auto) 1.0x10^3/uL (0.0-0.7) Basophils # (Auto) 0.1x10^3/uL (0.0-0.2) Sodium Level 142mmol/L (136-145) Potassium Level 3.7mmol/L (3.5-5.1) Chloride Level 103mmol/L (98-107) Carbon Dioxide Level 34mmol/L (21-32) Anion Gap 5 (6-14) Blood Urea Nitrogen 25mg/dL (8-26) Creatinine 0.8mg/dL (0.7-1.3) Estimated GFR (Cockcroft-Gault) 94.2 Glucose Level 132mg/dL (70-99) Calcium Level 8.3mg/dL (8.5-10.1) Phosphorus Level 2.8mg/dL (2.6-4.7) Magnesium Level 2.1mg/dL (1.8-2.4) Microbiology 10/05/16 Blood Culture - Final, Complete NO GROWTH AFTER 5 DAYS 10/05/16 Urine Culture - Final, Complete 10/05/16 Urine Culture Result 1 (JABARI) - Final, Complete Medications Current Medications Albuterol/ Ipratropium (Duoneb) 3 ml 1X ONCE NEB Last administered on 22:21; Start 10/05/16 at 22:15; Stop 10/05/16 at 22:50; Status DC Ondansetron HCl 4 mg 4 mg PRN Q8HRS PRN IV NAUSEA/VOMITING; Start 10/05/16 at 23 :00; Stop 10/06/16 at 22:59; Status DC Sodium Chloride (Iv Sodium Chloride 0.9% 1000ml Bag) 1,000 ml @ 100 mls/hr Q10H IV Last administered on 10/06/16 18:59; Start 10/05/16 at 22:59; Stop at 22:58; Status DC Albuterol/ Ipratropium 3 ml 3 ml RTQID NEB Last administered on 10/07/16 07:47 ; Start 10/06/16 at 08:00; Stop 10/07/16 at 07:59; Status DC Ceftriaxone Sodium 1 gm/ Sodium Chloride 50 ml @ 100 mls/hr Q24H IV ; Start 10/06/16 at 22:00; Stop 10/06/16 at 22:00; Status DC Levofloxacin/ Dextrose (LEVAQUIN 750mg PREMIX) 150 ml @ 100 mls/hr 1X ONCE IV Last administered on 10/06/16 01:05; Start 10/05/16 at 23:30; Stop 10/06/16 at 00:59; Status DC Vancomycin HCl 1 each 1 each PRN DAILY PRN MC SEE COMMENTS Last administered on 10/07/16 14:14; Start 10/05/16 at 23:00; Stop 10/08/16 at 18:52; Status DC Ceftriaxone Sodium 50 ml @ 100 mls/hr 1X ONCE IV Last administered on 01:05; Start 10/05/16 at 23:30; Stop 10/05/16 at 23:59; Status DC Vancomycin HCl 2 gm/Sodium Chloride 500 ml @ 250 mls/hr 1X ONCE IV Last administered on 10/05/16 23:26; Start 10/06/16 at 00:00; Stop 10/06/16 at 01:59; Status DC Vancomycin HCl/ Sodium Chloride (Iv Sodium Chloride 0.9% 250ml) 250 ml @ 167 mls/hr Q12H IV Last administered on 10/08/16 13:20; Start 10/06/16 at 12:00; Stop 10/08/16 at 18:52; Status DC Vancomycin HCl 1 each 1 each 1X ONCE MC ; Start 10/07/16 at 11:30; Stop 10/07/16 at 11:31; Status DC Piperacillin Sod/ Tazobactam Sod/ Sodium Chloride (Zosyn/Iv Sodium Chloride 0.9 % 50ml) 50 ml @ 100 mls/hr Q6HRS IV Last administered on 10/06/16 11:56; Start 10/06/16 at 11:00; Stop 10/06/16 at 15:24; Status DC Piperacillin Sod/ Tazobactam Sod (Zosyn Per Pharmacy) 1 each PRN DAILY PRN MC SEE COMMENTS; Start 10/06/16 at 10:15 Aspirin (Ecotrin) 81 mg DAILY PO ; Start 10/06/16 at 11:30; Stop 10/06/16 at 11:30 ; Status DC Bisacodyl (Dulcolax Supp) 10 mg PRN DAILY PRN RC CONSTIPATION; Start 10/06/16 at 10:15 Furosemide (Lasix) 40 mg DAILY PO Last administered on 10/11/16 08:41; Start 10/06/16 at 11:30 Guaifenesin (Mucinex) 600 mg BID PO ; Start 10/06/16 at 11:30; Stop 10/06/16 at 11 :30; Status DC Potassium Chloride (KCl Oral Soln) 10 meq DAILY PEG Last administered on 08:40; Start 10/06/16 at 11:30 Simvastatin (Zocor) 20 mg QHS PO Last administered on 10/10/16 21:05; Start at 21:00 Tamsulosin HCl (Flomax) 0.4 mg DAILY PO Last administered on 10/07/16 08:58; Start 10/06/16 at 11:30; Stop 10/08/16 at 10:18; Status DC Multivitamins/ Minerals (Ocuvite Lutein) 1 cap DAILY PO Last administered on 08:40; Start 10/06/16 at 11:00 Artificial Tears (Artificial Tears) 1 drop PRN BID PRN OU DRY EYE Last administered on 10/11/16 08:39; Start 10/06/16 at 10:30 Aspirin (Children'S Aspirin) 81 mg DAILYWBKFT PO Last administered on 10/08/16 09:00; Start 10/06/16 at 11:30; Stop 10/08/16 at 11:31; Status DC Guaifenesin (Robitussin) 200 mg QID PO Last administered on 10/11/16 11:58; Start 10/06/16 at 11:30 Furosemide (Lasix) 40 mg 1X ONCE IVP Last administered on 10/06/16 12:01; Start 10/06/16 at 12:00; Stop 10/06/16 at 12:01; Status DC Acetaminophen (Tylenol) 650 mg PRN Q6HRS PRN PEG MILD PAIN / TEMP Last administered on 10/10/16 09:42; Start 10/06/16 at 12:15 Ondansetron HCl (Zofran) 4 mg PRN Q6HRS PRN IV NAUSEA/VOMITING; Start 10/06/16 at 12:15 Enoxaparin Sodium (Lovenox 40mg Syringe) 40 mg Q24H SQ Last administered on 11:58; Start 10/06/16 at 13:00 Nystatin 1 alejandro 1 alejandro BID TP Last administered on 10/11/16 08:41; Start at 14:30 Piperacillin Sod/ Tazobactam Sod/ Sodium Chloride (Zosyn/Iv Sodium Chloride 0.9 % 100ml) 100 ml @ 200 mls/hr Q6HRS IV Last administered on 10/11/16 11:58; Start 10/06/16 at 18:00 Meloxicam (Mobic) 7.5 mg DAILY PO Last administered on 10/11/16 08:40; Start 10/07/16 at 10:00 Acetaminophen/ Hydrocodone Bitart (Lortab 5/325) 1 tab PRN Q4HRS PRN PO MODERATE - SEVERE PAIN Last administered on 10/11/16 11:59; Start 10/07/16 at 10 :45 Furosemide (Lasix) 20 mg 1X ONCE IVP Last administered on 10/07/16 18:24; Start 10/07/16 at 12:00; Stop 10/07/16 at 12:01; Status DC Digoxin 500 mcg 500 mcg 1X ONCE IV Last administered on 10/07/16 22:38; Start 10/07/16 at 22:15; Stop 10/07/16 at 22:17; Status DC Micafungin Sodium/ Dextrose (Mycamine) 100 ml @ 100 mls/hr Q24H IV Last administered on 10/11/16 08:46; Start 10/08/16 at 09:00 Iohexol (Omnipaque 240 Mg/ml) 30 ml 1X ONCE PO Last administered on 10/08/16 11:47; Start 10/08/16 at 09:15; Stop 10/08/16 at 09:18; Status DC Iohexol (Omnipaque 300 Mg/ml) 75 ml 1X ONCE IV Last administered on 10/08/16 11:46; Start 10/08/16 at 09:15; Stop 10/08/16 at 09:18; Status DC Finasteride (Proscar) 5 mg DAILY PO Last administered on 10/11/16 08:41; Start 10/09/16 at 09:00 Methylprednisolone Acetate (Depo-Medrol 40mg Vial) 40 mg 1X ONCE IM ; Start 10/08/16 at 10:45; Stop 10/08/16 at 10:53; Status DC Methylprednisolone Acetate (Depo-Medrol 40mg Vial) 40 mg 1X ONCE IM ; Start 10/08/16 at 10:45; Stop 10/08/16 at 10:53; Status DC Bupivacaine HCl (Sensorcaine-Mpf 0.25%) 10 ml 1X ONCE IJ ; Start 10/08/16 at 10: 45; Stop 10/08/16 at 10:53; Status DC Digoxin (Lanoxin) 125 mcg DAILY PO Last administered on 10/11/16 08:41; Start 10/08/16 at 11:30 Aspirin (Children'S Aspirin) 325 mg DAILYWBKFT PO Last administered on 12:38; Start 10/08/16 at 11:30; Stop 10/08/16 at 13:30; Status DC Lactobacillus Acidophilus (Bacid, Danielle-Bid) 1 tab DAILY PO Last administered on 10/11/16 08:40; Start 10/08/16 at 13:00 Aspirin (Children'S Aspirin) 324 mg DAILYWBKFT PO Last administered on 08:40; Start 10/08/16 at 13:30 Oxycodone/ Acetaminophen (Percocet 10/325) 1 tab PRN Q6HRS PRN PO PAIN; Start 10/09/16 at 10:30 Furosemide (Lasix) 20 mg 1X ONCE IVP Last administered on 10/09/16 16:54; Start 10/09/16 at 15:00; Stop 10/09/16 at 15:01; Status DC Urea (Thermal Lo 40, X-Viate) 1 alejandro DAILY TP Last administered on 10/11/16 08:40; Start 10/09/16 at 18:00 Nystatin 5 ml 5 ml [id number] Last administered on 10/11/16 11:59; Start 06/18 at 13:00 Potassium Chloride (KCl Premix 10meq) 100 ml @ 100 mls/hr Q1H IV Last administered on 10/10/16 17:00; Start 10/10/16 at 14:00; Stop 10/10/16 at 17:59 ; Status DC Vancomycin HCl 1 each 1 each PRN DAILY PRN MC SEE COMMENTS Last administered on 10/10/16 15:36; Start 10/10/16 at 14:45 Vancomycin HCl 2 gm/Sodium Chloride 500 ml @ 250 mls/hr 1X ONCE IV Last administered on 10/10/16 15:30; Start 10/10/16 at 15:30; Stop 10/10/16 at 17:29 ; Status DC Vancomycin HCl/ Sodium Chloride (Iv Sodium Chloride 0.9% 250ml) 250 ml @ 167 mls/hr Q12H IV Last administered on 10/11/16 04:28; Start 10/11/16 at 05:00 Active Scripts Active Reported Isopto Tears (Hypromellose) 15 Ml Drops 15 Ml OP Oxycodone Hcl 10 Mg Tablet 1 Tab PO QID Ocuvite Tablet (Vit A,C & E/Lutein/Minerals) 1 Each Tablet 1 Each PO Dulcolax (Bisacodyl) 10 Mg Supp.rect 10 Mg RC PRN DAILY PRN Milk Of Magnesia (Magnesium Hydroxide) 400 Mg/5 Ml Oral.susp 400 Mg PO Simvastatin 20 Mg Tablet 1 Tab PO QHS Refresh Optive Eye Drops (Carboxymethylcellulos/Glycerin) 15 Ml Drops 1 Drop EACHEYE BID Tamsulosin Hcl 0.4 Mg Cap.er.24h 1 Cap PO DAILY Potassium Chloride Oral Liquid (Potassium Chloride) 20 Meq/15 Ml Liquid 10 Meq PEG DAILY Aspir 81 (Aspirin) 81 Mg Tablet.dr 1 Tab PO DAILY Furosemide 40 Mg Tablet 1 Tab PO DAILY Meloxicam 7.5 Mg Tablet 1 Tab PO DAILY Trazodone Hcl 50 Mg Tablet 1 Tab PO QHS Mucinex (Guaifenesin) 600 Mg Tablet.er 600 Mg PO Vitals/I & O Vital Sign - Last 24 Hours 10/10/16 10/10/16 10/10/16 10/10/16 14:35 19:00 20:00 23:00 Temp 97.9 98.1 97.7 97.9 98.1 97.7 Pulse 72 72 63 Resp 24 20 20 B/P 130/47 150/63 137/52 Pulse Ox 92 95 95 O2 Delivery Nasal Cannula Nasal Cannula Nasal Cannula Nasal Cannula O2 Flow Rate 5.0 5.0 10/11/16 10/11/16 10/11/16 10/11/16 03:23 03:31 04:23 07:20 Temp 97.9 97.9 97.9 97.9 Pulse 76 71 Resp 20 24 B/P 142/54 144/51 Pulse Ox 95 91 94 96 O2 Delivery Nasal Cannula Nasal Cannula Nasal Cannula Nasal Cannula O2 Flow Rate 5.0 5.0 5.0 10/11/16 10/11/16 10/11/16 10/11/16 08:00 08:41 10:25 11:59 Temp 97.7 97.7 Pulse 71 62 Resp 24 B/P 144/51 128/50 Pulse Ox 95 95 O2 Delivery Nasal Cannula Nasal Cannula Nasal Cannula O2 Flow Rate 5.0 5.0 5.0 Intake and Output 10/10/16 10/10/16 10/11/16 15:00 23:00 07:00 Intake Total 0 ml 910 ml 450 ml Output Total 900 ml 1450 ml Balance -900 ml 910 ml -1000 ml EDWARDO AMES MD Oct 11, 2016 12:37
--- NOTE | 2016-10-11 14:07 | PDOC ---
Infectious Disease Note Subjective Subjective more alert and says ok ROS ROS GEN: Denies fevers, chills, sweats HEENT: Denies blurred vision, sore throat CV: Denies chest pain RESP: Denies shortness of air, cough GI: Denies n/v/d NEURO: Denies confusion, dizziness MSK: Denies weakness, joint pain/swelling Vital Sign Vital Signs Vital Signs Date Time Temp Pulse Resp B/P Pulse Ox O2 Delivery O2 Flow Rate FiO2 10/11/16 12:59 95 Nasal Cannula 5.0 10/11/16 10:25 97.7 62 24 128/50 97.7 Physical Exam PHYSICAL EXAM GENERAL: More alert but still weak, NAD HEENT: Oral cavity dry LUNGS: Upper airway secretions. 6LNC O2 HEART: S1S2 ABD: Obese, soft, No grimace or guarding to palpation. PEG : Tinsley. Scrotal swelling EXT: BLE edema. Knee brace bilat. Left great toe bandaged [employer]IST[employer]: Alert, seems to comprehend SKIN: No rash IV: ok Labs Lab Laboratory Tests Test 10/10/16 17:10 10/11/16 04:17 Stool Occult Blood Negative (NEG) White Blood Count 10.5x10^3/uL (4.0-11.0) Red Blood Count 3.14x10^6/uL (4.30-5.70) Hemoglobin 9.6g/dL (13.0-17.5) Hematocrit 29.3% (39.0-53.0) Mean Corpuscular Volume 94fL (79-100) Mean Corpuscular Hemoglobin 31pg (25-35) Mean Corpuscular Hemoglobin Concent 33g/dL (31-37) Red Cell Distribution Width 14.3% (11.5-14.5) Platelet Count 209x10^3/uL (140-400) Neutrophils (%) (Auto) 72% (31-73) Lymphocytes (%) (Auto) 12% (24-48) Monocytes (%) (Auto) 6% (0-9) Eosinophils (%) (Auto) 9% (0-3) Basophils (%) (Auto) 1% (0-3) Neutrophils # (Auto) 7.6x10^3uL (1.8-7.7) Lymphocytes # (Auto) 1.2x10^3/uL (1.0-4.8) Monocytes # (Auto) 0.6x10^3/uL (0.0-1.1) Eosinophils # (Auto) 1.0x10^3/uL (0.0-0.7) Basophils # (Auto) 0.1x10^3/uL (0.0-0.2) Sodium Level 142mmol/L (136-145) Potassium Level 3.7mmol/L (3.5-5.1) Chloride Level 103mmol/L (98-107) Carbon Dioxide Level 34mmol/L (21-32) Anion Gap 5 (6-14) Blood Urea Nitrogen 25mg/dL (8-26) Creatinine 0.8mg/dL (0.7-1.3) Estimated GFR (Cockcroft-Gault) 94.2 Glucose Level 132mg/dL (70-99) Calcium Level 8.3mg/dL (8.5-10.1) Phosphorus Level 2.8mg/dL (2.6-4.7) Magnesium Level 2.1mg/dL (1.8-2.4) Objective Assessment Leukocytosis - better Fever - better Pneumonia Gout Debility Gluteal ulcer/decub Diarrhea. c. diff negative s/p nails debrided x 10 with microbleed to left hallux. 10/09 Inguinal hernia Plan Plan of Care Zosyn (10/06) and micafungin (10/08) F/u Blood cults times 2 Added Vanc 10/10 Monitor labs/cultures RAÚL SCHMITT MD Oct 11, 2016 14:07
[2016-10-11 14:40] VITALS: BP 138/53
[2016-10-11] MEDS: VANCOMYCIN PER PHARMACY MC PRN (15:17)
[2016-10-11 19:00] VITALS: BP 131/49
[2016-10-11] MEDS: SIMVASTATIN 20 MG TABLET PO SCH (20:41)
[2016-10-11 23:02] VITALS: BP 125/85
[2016-10-12 02:35] VITALS: BP 115/67
[2016-10-12] MEDS: VANCOMYCIN 1.25 GM in IV NORMAL SALINE 250ML 250 ML IV SCH ×2 (04:32→17:02)
[2016-10-12 05:28] LABS: BASO # 0.1 x10^3/uL (0.0-0.2); BASO % 1 % (0-3); EOS % 12 % (0-3); HEMATOCRIT 30.1 % (39.0-53.0); HEMOGLOBIN 9.9 g/dL (13.0-17.5); LYMPH # 1.4 x10^3/uL (1.0-4.8); LYMPH % 12 % (24-48); MEAN CORPUSCULAR HEMOGLOBIN 31 pg (25-35); MEAN CORPUSCULAR HGB CONC 33 g/dL (31-37); MEAN CORPUSCULAR VOLUME 93 fL (79-100); MONO % 7 % (0-9); NEUT % 68 % (31-73); PLATELET COUNT 221 x10^3/uL (140-400); RED BLOOD COUNT 3.24 x10^6/uL (4.30-5.70); RED CELL DISTRIBUTION WIDTH 14.1 % (11.5-14.5); WHITE BLOOD COUNT 12.4 x10^3/uL (4.0-11.0)
[2016-10-12 05:44] LABS: CREATININE 0.7 mg/dL (0.7-1.3); GFR 109.9; POTASSIUM 4.1 mmol/L (3.5-5.1)
[2016-10-12] MEDS: PIPERACILLIN/TAZOBACTAM 4.5 GM in IV NORMAL SALINE 100ML 100 ML IV SCH ×4 (06:12→23:49)
[2016-10-12 07:00] VITALS: BP 160/68
[2016-10-12] MEDS: MICAFUNGIN 100 MG in IV DEXTROSE 5% 100 ML IV SCH (07:50)
[2016-10-12] MEDS: HYDROCODONE/APAP 5/325MG TABLET. PO PRN (07:50)
[2016-10-12] MEDS: POTASSIUM CHLORIDE 20 MEQ/15 ML ORAL LIQUID. PEG SCH (07:52)
[2016-10-12] MEDS: GUAIFENESIN 200 MG/10 ML LIQUID. PO SCH ×4 (07:52→20:38)
[2016-10-12] MEDS: ASPIRIN 81 MG TAB.CHEW PO SCH (07:52)
[2016-10-12] MEDS: FINASTERIDE 5 MG TABLET PO SCH (07:53)
[2016-10-12] MEDS: FUROSEMIDE 40 MG TABLET PO SCH (07:53)
[2016-10-12] MEDS: MULTIVITAMIN EYE FORMULA CAPSULE. PO SCH (07:53)
[2016-10-12] MEDS: DIGOXIN 125 MCG TABLET PO SCH (07:53)
[2016-10-12] MEDS: LACTOBACILLUS ACIDOPH & BULGAR 1 TABLET. PO SCH (07:53)
[2016-10-12] MEDS: NYSTATIN TOPICAL POWDER 15GM BOTTLE. TP SCH ×2 (07:54→20:39)
[2016-10-12] MEDS: NYSTATIN 100,000 UNITS/ML 5 ML ORAL.SUSP. SWSW SCH ×4 (07:54→20:38)
[2016-10-12] MEDS: MELOXICAM 7.5 MG TABLET PO SCH (07:54)
[2016-10-12] MEDS: UREA 40% TOPICAL CREAM 28.3GM TUBE. TP SCH (07:55)
[2016-10-12 08:00] LABS: % EOS 10 % (0-5); PLT ESTIMATE ADEQUATE (ADEQUATE)
[2016-10-12 08:01] LABS: TOXIC GRANULATION PRESENT
--- NOTE | 2016-10-12 09:57 | PDOC ---
PROGRESS NOTES Assessment Problems Medical Problems: (1) Altered mental status Status: Acute (2) Hospital acquired PNA Status: Acute Metabolic encephalopathy. Dementia, Prior PEG No evidence of acute CVA Plan Continue treatment of infection, medical diseases Will follow Subjective No complaints Objective Vital Signs Date Time Temp Pulse Resp B/P Pulse Ox O2 Delivery O2 Flow Rate FiO2 10/12/16 08:50 18 95 Nasal Cannula 5.0 10/12/16 07:53 65 115/67 10/12/16 07:00 98.1 98.1 Intake and Output 10/12/16 07:00 Intake Total 3487 ml Output Total 1800 ml Balance 1687 ml Intake Oral 0 ml IV Total 350 ml Tube Feeding 1637 ml Other 1500 ml Output Urine Total 1800 ml # Bowel Movements 12 PHYSICAL EXAM Alert. Oriented to place and person, knows Month and Year. PERRL. EOMI. CN: no focal findings. Muscle tone: normal. Muscle strength: 4/5 DTR: 2+ Plantar reflex: flexor Gait: not examined in bed. Sensory exam: no abnormal findings. No cerebellar signs elicited. Review of Relevant I have reviewed the following items cassidy (where applicable) has been applied. Labs Laboratory Tests Test 10/10/16 11:06 10/10/16 17:10 10/11/16 04:17 10/12/16 04:20 White Blood Count 13.2x10^3/uL (4.0-11.0) 10.5x10^3/uL (4.0-11.0) 12.4x10^3/uL (4.0-11.0) Red Blood Count 3.43x10^6/uL (4.30-5.70) 3.14x10^6/uL (4.30-5.70) 3.24x10^6/uL (4.30-5.70) Hemoglobin 10.4g/dL (13.0-17.5) 9.6g/dL (13.0-17.5) 9.9g/dL (13.0-17.5) Hematocrit 31.2% (39.0-53.0) 29.3% (39.0-53.0) 30.1% (39.0-53.0) Mean Corpuscular Volume 91fL (79-100) 94fL (79-100) 93fL (79-100) Mean Corpuscular Hemoglobin 30pg (25-35) 31pg (25-35) 31pg (25-35) Mean Corpuscular Hemoglobin Concent 33g/dL (31-37) 33g/dL (31-37) 33g/dL (31-37) Red Cell Distribution Width 14.0% (11.5-14.5) 14.3% (11.5-14.5) 14.1% (11.5-14.5) Platelet Count 215x10^3/uL (140-400) 209x10^3/uL (140-400) 221x10^3/uL (140-400) Neutrophils (%) (Auto) 80% (31-73) 72% (31-73) 68% (31-73) Lymphocytes (%) (Auto) 9% (24-48) 12% (24-48) 12% (24-48) Monocytes (%) (Auto) 7% (0-9) 6% (0-9) 7% (0-9) Eosinophils (%) (Auto) 4% (0-3) 9% (0-3) 12% (0-3) Basophils (%) (Auto) 1% (0-3) 1% (0-3) 1% (0-3) Neutrophils # (Auto) 10.5x10^3uL (1.8-7.7) 7.6x10^3uL (1.8-7.7) 8.5x10^3uL (1.8-7.7) Lymphocytes # (Auto) 1.2x10^3/uL (1.0-4.8) 1.2x10^3/uL (1.0-4.8) 1.4x10^3/uL (1.0-4.8) Monocytes # (Auto) 0.9x10^3/uL (0.0-1.1) 0.6x10^3/uL (0.0-1.1) 0.9x10^3/uL (0.0-1.1) Eosinophils # (Auto) 0.5x10^3/uL (0.0-0.7) 1.0x10^3/uL (0.0-0.7) 1.5x10^3/uL (0.0-0.7) Basophils # (Auto) 0.1x10^3/uL (0.0-0.2) 0.1x10^3/uL (0.0-0.2) 0.1x10^3/uL (0.0-0.2) Sodium Level 138mmol/L (136-145) 142mmol/L (136-145) 143mmol/L (136-145) Potassium Level 3.4mmol/L (3.5-5.1) 3.7mmol/L (3.5-5.1) 4.1mmol/L (3.5-5.1) Chloride Level 98mmol/L (98-107) 103mmol/L (98-107) 105mmol/L (98-107) Carbon Dioxide Level 36mmol/L (21-32) 34mmol/L (21-32) 34mmol/L (21-32) Anion Gap 4 (6-14) 5 (6-14) 4 (6-14) Blood Urea Nitrogen 23mg/dL (8-26) 25mg/dL (8-26) 22mg/dL (8-26) Creatinine 0.7mg/dL (0.7-1.3) 0.8mg/dL (0.7-1.3) 0.7mg/dL (0.7-1.3) Estimated GFR (Cockcroft-Gault) 109.9 94.2 109.9 Glucose Level 154mg/dL (70-99) 132mg/dL (70-99) 109mg/dL (70-99) Calcium Level 8.3mg/dL (8.5-10.1) 8.3mg/dL (8.5-10.1) 8.0mg/dL (8.5-10.1) Stool Occult Blood Negative (NEG) Phosphorus Level 2.8mg/dL (2.6-4.7) Magnesium Level 2.1mg/dL (1.8-2.4) Segmented Neutrophils % 66% (35-66) Band Neutrophils % 2% (0-9) Lymphocytes % 16% (24-48) Atypical Lymphocytes % (Manual) 1% (0-0) Monocytes % 4% (0-10) Eosinophils % 10% (0-5) Metamyelocytes % 1% (0-0) Toxic Granulation Present Platelet Estimate Adequate (ADEQUATE) Large Platelets Present Laboratory Tests Test 10/12/16 04:20 White Blood Count 12.4x10^3/uL (4.0-11.0) Red Blood Count 3.24x10^6/uL (4.30-5.70) Hemoglobin 9.9g/dL (13.0-17.5) Hematocrit 30.1% (39.0-53.0) Mean Corpuscular Volume 93fL (79-100) Mean Corpuscular Hemoglobin 31pg (25-35) Mean Corpuscular Hemoglobin Concent 33g/dL (31-37) Red Cell Distribution Width 14.1% (11.5-14.5) Platelet Count 221x10^3/uL (140-400) Neutrophils (%) (Auto) 68% (31-73) Lymphocytes (%) (Auto) 12% (24-48) Monocytes (%) (Auto) 7% (0-9) Eosinophils (%) (Auto) 12% (0-3) Basophils (%) (Auto) 1% (0-3) Neutrophils # (Auto) 8.5x10^3uL (1.8-7.7) Lymphocytes # (Auto) 1.4x10^3/uL (1.0-4.8) Monocytes # (Auto) 0.9x10^3/uL (0.0-1.1) Eosinophils # (Auto) 1.5x10^3/uL (0.0-0.7) Basophils # (Auto) 0.1x10^3/uL (0.0-0.2) Segmented Neutrophils % 66% (35-66) Band Neutrophils % 2% (0-9) Lymphocytes % 16% (24-48) Atypical Lymphocytes % (Manual) 1% (0-0) Monocytes % 4% (0-10) Eosinophils % 10% (0-5) Metamyelocytes % 1% (0-0) Toxic Granulation Present Platelet Estimate Adequate (ADEQUATE) Large Platelets Present Sodium Level 143mmol/L (136-145) Potassium Level 4.1mmol/L (3.5-5.1) Chloride Level 105mmol/L (98-107) Carbon Dioxide Level 34mmol/L (21-32) Anion Gap 4 (6-14) Blood Urea Nitrogen 22mg/dL (8-26) Creatinine 0.7mg/dL (0.7-1.3) Estimated GFR (Cockcroft-Gault) 109.9 Glucose Level 109mg/dL (70-99) Calcium Level 8.0mg/dL (8.5-10.1) Microbiology 10/10/16 Blood Culture - Preliminary, Resulted NO GROWTH AFTER 1 DAY 10/05/16 Urine Culture - Final, Complete 10/05/16 Urine Culture Result 1 (JABARI) - Final, Complete Medications Current Medications Albuterol/ Ipratropium (Duoneb) 3 ml 1X ONCE NEB Last administered on 22:21; Start 10/05/16 at 22:15; Stop 10/05/16 at 22:50; Status DC Ondansetron HCl 4 mg 4 mg PRN Q8HRS PRN IV NAUSEA/VOMITING; Start 10/05/16 at 23 :00; Stop 10/06/16 at 22:59; Status DC Sodium Chloride (Iv Sodium Chloride 0.9% 1000ml Bag) 1,000 ml @ 100 mls/hr Q10H IV Last administered on 10/06/16 18:59; Start 10/05/16 at 22:59; Stop at 22:58; Status DC Albuterol/ Ipratropium 3 ml 3 ml RTQID NEB Last administered on 10/07/16 07:47 ; Start 10/06/16 at 08:00; Stop 10/07/16 at 07:59; Status DC Ceftriaxone Sodium 1 gm/ Sodium Chloride 50 ml @ 100 mls/hr Q24H IV ; Start 10/06/16 at 22:00; Stop 10/06/16 at 22:00; Status DC Levofloxacin/ Dextrose (LEVAQUIN 750mg PREMIX) 150 ml @ 100 mls/hr 1X ONCE IV Last administered on 10/06/16 01:05; Start 10/05/16 at 23:30; Stop 10/06/16 at 00:59; Status DC Vancomycin HCl 1 each 1 each PRN DAILY PRN MC SEE COMMENTS Last administered on 10/07/16 14:14; Start 10/05/16 at 23:00; Stop 10/08/16 at 18:52; Status DC Ceftriaxone Sodium 50 ml @ 100 mls/hr 1X ONCE IV Last administered on 01:05; Start 10/05/16 at 23:30; Stop 10/05/16 at 23:59; Status DC Vancomycin HCl 2 gm/Sodium Chloride 500 ml @ 250 mls/hr 1X ONCE IV Last administered on 10/05/16 23:26; Start 10/06/16 at 00:00; Stop 10/06/16 at 01:59; Status DC Vancomycin HCl/ Sodium Chloride (Iv Sodium Chloride 0.9% 250ml) 250 ml @ 167 mls/hr Q12H IV Last administered on 10/08/16 13:20; Start 10/06/16 at 12:00; Stop 10/08/16 at 18:52; Status DC Vancomycin HCl 1 each 1 each 1X ONCE MC ; Start 10/07/16 at 11:30; Stop 10/07/16 at 11:31; Status DC Piperacillin Sod/ Tazobactam Sod/ Sodium Chloride (Zosyn/Iv Sodium Chloride 0.9 % 50ml) 50 ml @ 100 mls/hr Q6HRS IV Last administered on 10/06/16 11:56; Start 10/06/16 at 11:00; Stop 10/06/16 at 15:24; Status DC Piperacillin Sod/ Tazobactam Sod (Zosyn Per Pharmacy) 1 each PRN DAILY PRN MC SEE COMMENTS; Start 10/06/16 at 10:15 Aspirin (Ecotrin) 81 mg DAILY PO ; Start 10/06/16 at 11:30; Stop 10/06/16 at 11:30 ; Status DC Bisacodyl (Dulcolax Supp) 10 mg PRN DAILY PRN RC CONSTIPATION; Start 10/06/16 at 10:15 Furosemide (Lasix) 40 mg DAILY PO Last administered on 10/12/16 07:53; Start 10/06/16 at 11:30 Guaifenesin (Mucinex) 600 mg BID PO ; Start 10/06/16 at 11:30; Stop 10/06/16 at 11 :30; Status DC Potassium Chloride (KCl Oral Soln) 10 meq DAILY PEG Last administered on 07:52; Start 10/06/16 at 11:30 Simvastatin (Zocor) 20 mg QHS PO Last administered on 10/11/16 20:41; Start at 21:00 Tamsulosin HCl (Flomax) 0.4 mg DAILY PO Last administered on 10/07/16 08:58; Start 10/06/16 at 11:30; Stop 10/08/16 at 10:18; Status DC Multivitamins/ Minerals (Ocuvite Lutein) 1 cap DAILY PO Last administered on 07:53; Start 10/06/16 at 11:00 Artificial Tears (Artificial Tears) 1 drop PRN BID PRN OU DRY EYE Last administered on 10/11/16 08:39; Start 10/06/16 at 10:30 Aspirin (Children'S Aspirin) 81 mg DAILYWBKFT PO Last administered on 10/08/16 09:00; Start 10/06/16 at 11:30; Stop 10/08/16 at 11:31; Status DC Guaifenesin (Robitussin) 200 mg QID PO Last administered on 10/12/16 07:52; Start 10/06/16 at 11:30 Furosemide (Lasix) 40 mg 1X ONCE IVP Last administered on 10/06/16 12:01; Start 10/06/16 at 12:00; Stop 10/06/16 at 12:01; Status DC Acetaminophen (Tylenol) 650 mg PRN Q6HRS PRN PEG MILD PAIN / TEMP Last administered on 10/10/16 09:42; Start 10/06/16 at 12:15 Ondansetron HCl (Zofran) 4 mg PRN Q6HRS PRN IV NAUSEA/VOMITING; Start 10/06/16 at 12:15 Enoxaparin Sodium (Lovenox 40mg Syringe) 40 mg Q24H SQ Last administered on 11:58; Start 10/06/16 at 13:00 Nystatin 1 alejandro 1 alejandro BID TP Last administered on 10/12/16 07:54; Start at 14:30 Piperacillin Sod/ Tazobactam Sod/ Sodium Chloride (Zosyn/Iv Sodium Chloride 0.9 % 100ml) 100 ml @ 200 mls/hr Q6HRS IV Last administered on 10/12/16 06:12; Start 10/06/16 at 18:00 Meloxicam (Mobic) 7.5 mg DAILY PO Last administered on 10/12/16 07:54; Start 10/07/16 at 10:00 Acetaminophen/ Hydrocodone Bitart (Lortab 5/325) 1 tab PRN Q4HRS PRN PO MODERATE - SEVERE PAIN Last administered on 10/12/16 07:50; Start 10/07/16 at 10 :45 Furosemide (Lasix) 20 mg 1X ONCE IVP Last administered on 10/07/16 18:24; Start 10/07/16 at 12:00; Stop 10/07/16 at 12:01; Status DC Digoxin 500 mcg 500 mcg 1X ONCE IV Last administered on 10/07/16 22:38; Start 10/07/16 at 22:15; Stop 10/07/16 at 22:17; Status DC Micafungin Sodium/ Dextrose (Mycamine) 100 ml @ 100 mls/hr Q24H IV Last administered on 10/12/16 07:50; Start 10/08/16 at 09:00 Iohexol (Omnipaque 240 Mg/ml) 30 ml 1X ONCE PO Last administered on 10/08/16 11:47; Start 10/08/16 at 09:15; Stop 10/08/16 at 09:18; Status DC Iohexol (Omnipaque 300 Mg/ml) 75 ml 1X ONCE IV Last administered on 10/08/16 11:46; Start 10/08/16 at 09:15; Stop 10/08/16 at 09:18; Status DC Finasteride (Proscar) 5 mg DAILY PO Last administered on 10/12/16 07:53; Start 10/09/16 at 09:00 Methylprednisolone Acetate (Depo-Medrol 40mg Vial) 40 mg 1X ONCE IM ; Start 10/08/16 at 10:45; Stop 10/08/16 at 10:53; Status DC Methylprednisolone Acetate (Depo-Medrol 40mg Vial) 40 mg 1X ONCE IM ; Start 10/08/16 at 10:45; Stop 10/08/16 at 10:53; Status DC Bupivacaine HCl (Sensorcaine-Mpf 0.25%) 10 ml 1X ONCE IJ ; Start 10/08/16 at 10: 45; Stop 10/08/16 at 10:53; Status DC Digoxin (Lanoxin) 125 mcg DAILY PO Last administered on 10/12/16 07:53; Start 10/08/16 at 11:30 Aspirin (Children'S Aspirin) 325 mg DAILYWBKFT PO Last administered on 12:38; Start 10/08/16 at 11:30; Stop 10/08/16 at 13:30; Status DC Lactobacillus Acidophilus (Bacid, Danielle-Bid) 1 tab DAILY PO Last administered on 10/12/16 07:53; Start 10/08/16 at 13:00 Aspirin (Children'S Aspirin) 324 mg DAILYWBKFT PO Last administered on 07:52; Start 10/08/16 at 13:30 Oxycodone/ Acetaminophen (Percocet 10/325) 1 tab PRN Q6HRS PRN PO PAIN; Start 10/09/16 at 10:30 Furosemide (Lasix) 20 mg 1X ONCE IVP Last administered on 10/09/16 16:54; Start 10/09/16 at 15:00; Stop 10/09/16 at 15:01; Status DC Urea (Ritu Lo 40, X-Viate) 1 alejandro DAILY TP Last administered on 10/12/16 07:55; Start 10/09/16 at 18:00 Nystatin 5 ml 5 ml [id number] Last administered on 10/12/16 07:54; Start 06/18 at 13:00 Potassium Chloride (KCl Premix 10meq) 100 ml @ 100 mls/hr Q1H IV Last administered on 10/10/16 17:00; Start 10/10/16 at 14:00; Stop 10/10/16 at 17:59 ; Status DC Vancomycin HCl 1 each 1 each PRN DAILY PRN MC SEE COMMENTS Last administered on 10/11/16 15:17; Start 10/10/16 at 14:45 Vancomycin HCl 2 gm/Sodium Chloride 500 ml @ 250 mls/hr 1X ONCE IV Last administered on 10/10/16 15:30; Start 10/10/16 at 15:30; Stop 10/10/16 at 17:29 ; Status DC Vancomycin HCl/ Sodium Chloride (Iv Sodium Chloride 0.9% 250ml) 250 ml @ 167 mls/hr Q12H IV Last administered on 10/12/16t 04:32; Start 10/11/16 at 05:00 Active Scripts Active Reported Isopto Tears (Hypromellose) 15 Ml Drops 15 Ml OP Oxycodone Hcl 10 Mg Tablet 1 Tab PO QID Ocuvite Tablet (Vit A,C & E/Lutein/Minerals) 1 Each Tablet 1 Each PO Dulcolax (Bisacodyl) 10 Mg Supp.rect 10 Mg RC PRN DAILY PRN Milk Of Magnesia (Magnesium Hydroxide) 400 Mg/5 Ml Oral.susp 400 Mg PO Simvastatin 20 Mg Tablet 1 Tab PO QHS Refresh Optive Eye Drops (Carboxymethylcellulos/Glycerin) 15 Ml Drops 1 Drop EACHEYE BID Tamsulosin Hcl 0.4 Mg Cap.er.24h 1 Cap PO DAILY Potassium Chloride Oral Liquid (Potassium Chloride) 20 Meq/15 Ml Liquid 10 Meq PEG DAILY Aspir 81 (Aspirin) 81 Mg Tablet.dr 1 Tab PO DAILY Furosemide 40 Mg Tablet 1 Tab PO DAILY Meloxicam 7.5 Mg Tablet 1 Tab PO DAILY Trazodone Hcl 50 Mg Tablet 1 Tab PO QHS Mucinex (Guaifenesin) 600 Mg Tablet.er 600 Mg PO Vitals/I & O Vital Sign - Last 24 Hours 10/11/16 10/11/16 10/11/16 10/11/16 10:25 11:59 14:40 19:00 Temp 97.7 97.7 97.7 97.7 97.7 97.7 Pulse 62 67 72 Resp 24 24 18 B/P 128/50 138/53 131/49 Pulse Ox 95 95 97 97 O2 Delivery Nasal Cannula Nasal Cannula Nasal Cannula Nasal Cannula O2 Flow Rate 5.0 5.0 5.0 5.0 10/11/16 10/11/16 10/11/16 10/12/16 19:10 20:42 23:02 02:35 Temp 97.4 97.3 97.4 97.3 Pulse 69 65 Resp 20 18 18 B/P 125/85 115/67 Pulse Ox 97 97 95 O2 Delivery Nasal Cannula Nasal Cannula Nasal Cannula Nasal Cannula O2 Flow Rate 5.0 5.0 5.0 5.0 10/12/16 10/12/16 10/12/16 10/12/16 07:00 07:50 07:53 08:00 Temp 98.1 98.1 Pulse 77 65 Resp 14 20 B/P 160/68 115/67 Pulse Ox 95 95 O2 Delivery Nasal Cannula Nasal Cannula Nasal Cannula O2 Flow Rate 5.0 5.0 5.0 10/12/16 08:50 Resp 18 Pulse Ox 95 O2 Delivery Nasal Cannula O2 Flow Rate 5.0 Intake and Output 10/11/16 10/11/16 10/12/16 15:00 23:00 07:00 Intake Total 1800 ml 1687 ml Output Total 800 ml 1000 ml Balance 1000 ml 687 ml THELMA GUTIERREZ MD Oct 12, 2016 09:57
--- NOTE | 2016-10-12 10:37 | PDOC ---
PROGRESS NOTES Subjective Subjective No new complaints. Objective Objective Vital Signs Date Time Temp Pulse Resp B/P Pulse Ox O2 Delivery O2 Flow Rate FiO2 10/12/16 08:50 18 95 Nasal Cannula 5.0 10/12/16 07:53 65 115/67 10/12/16 07:00 98.1 98.1 Intake and Output 10/12/16 07:00 Intake Total 3487 ml Output Total 1800 ml Balance 1687 ml Intake Oral 0 ml IV Total 350 ml Tube Feeding 1637 ml Other 1500 ml Output Urine Total 1800 ml # Bowel Movements 12 Physical Exam Physical Exam He continues with redness and tenderness to palpation over right olecranon bursa and stiffness of his knee and tenderness to palpation right ankle.He is more awake. Assessment Assessment Problems Medical Problems: (1) Altered mental status Status: Acute (2) Hospital acquired PNA Status: Acute Plan Plan of Care To get him up as tolerated. Comment Review of Relevant I have reviewed the following items cassidy (where applicable) has been applied. Labs Laboratory Tests Test 10/10/16 11:06 10/10/16 17:10 10/11/16 04:17 10/12/16 04:20 White Blood Count 13.2x10^3/uL (4.0-11.0) 10.5x10^3/uL (4.0-11.0) 12.4x10^3/uL (4.0-11.0) Red Blood Count 3.43x10^6/uL (4.30-5.70) 3.14x10^6/uL (4.30-5.70) 3.24x10^6/uL (4.30-5.70) Hemoglobin 10.4g/dL (13.0-17.5) 9.6g/dL (13.0-17.5) 9.9g/dL (13.0-17.5) Hematocrit 31.2% (39.0-53.0) 29.3% (39.0-53.0) 30.1% (39.0-53.0) Mean Corpuscular Volume 91fL (79-100) 94fL (79-100) 93fL (79-100) Mean Corpuscular Hemoglobin 30pg (25-35) 31pg (25-35) 31pg (25-35) Mean Corpuscular Hemoglobin Concent 33g/dL (31-37) 33g/dL (31-37) 33g/dL (31-37) Red Cell Distribution Width 14.0% (11.5-14.5) 14.3% (11.5-14.5) 14.1% (11.5-14.5) Platelet Count 215x10^3/uL (140-400) 209x10^3/uL (140-400) 221x10^3/uL (140-400) Neutrophils (%) (Auto) 80% (31-73) 72% (31-73) 68% (31-73) Lymphocytes (%) (Auto) 9% (24-48) 12% (24-48) 12% (24-48) Monocytes (%) (Auto) 7% (0-9) 6% (0-9) 7% (0-9) Eosinophils (%) (Auto) 4% (0-3) 9% (0-3) 12% (0-3) Basophils (%) (Auto) 1% (0-3) 1% (0-3) 1% (0-3) Neutrophils # (Auto) 10.5x10^3uL (1.8-7.7) 7.6x10^3uL (1.8-7.7) 8.5x10^3uL (1.8-7.7) Lymphocytes # (Auto) 1.2x10^3/uL (1.0-4.8) 1.2x10^3/uL (1.0-4.8) 1.4x10^3/uL (1.0-4.8) Monocytes # (Auto) 0.9x10^3/uL (0.0-1.1) 0.6x10^3/uL (0.0-1.1) 0.9x10^3/uL (0.0-1.1) Eosinophils # (Auto) 0.5x10^3/uL (0.0-0.7) 1.0x10^3/uL (0.0-0.7) 1.5x10^3/uL (0.0-0.7) Basophils # (Auto) 0.1x10^3/uL (0.0-0.2) 0.1x10^3/uL (0.0-0.2) 0.1x10^3/uL (0.0-0.2) Sodium Level 138mmol/L (136-145) 142mmol/L (136-145) 143mmol/L (136-145) Potassium Level 3.4mmol/L (3.5-5.1) 3.7mmol/L (3.5-5.1) 4.1mmol/L (3.5-5.1) Chloride Level 98mmol/L (98-107) 103mmol/L (98-107) 105mmol/L (98-107) Carbon Dioxide Level 36mmol/L (21-32) 34mmol/L (21-32) 34mmol/L (21-32) Anion Gap 4 (6-14) 5 (6-14) 4 (6-14) Blood Urea Nitrogen 23mg/dL (8-26) 25mg/dL (8-26) 22mg/dL (8-26) Creatinine 0.7mg/dL (0.7-1.3) 0.8mg/dL (0.7-1.3) 0.7mg/dL (0.7-1.3) Estimated GFR (Cockcroft-Gault) 109.9 94.2 109.9 Glucose Level 154mg/dL (70-99) 132mg/dL (70-99) 109mg/dL (70-99) Calcium Level 8.3mg/dL (8.5-10.1) 8.3mg/dL (8.5-10.1) 8.0mg/dL (8.5-10.1) Stool Occult Blood Negative (NEG) Phosphorus Level 2.8mg/dL (2.6-4.7) Magnesium Level 2.1mg/dL (1.8-2.4) Segmented Neutrophils % 66% (35-66) Band Neutrophils % 2% (0-9) Lymphocytes % 16% (24-48) Atypical Lymphocytes % (Manual) 1% (0-0) Monocytes % 4% (0-10) Eosinophils % 10% (0-5) Metamyelocytes % 1% (0-0) Toxic Granulation Present Platelet Estimate Adequate (ADEQUATE) Large Platelets Present Laboratory Tests Test 10/12/16 04:20 White Blood Count 12.4x10^3/uL (4.0-11.0) Red Blood Count 3.24x10^6/uL (4.30-5.70) Hemoglobin 9.9g/dL (13.0-17.5) Hematocrit 30.1% (39.0-53.0) Mean Corpuscular Volume 93fL (79-100) Mean Corpuscular Hemoglobin 31pg (25-35) Mean Corpuscular Hemoglobin Concent 33g/dL (31-37) Red Cell Distribution Width 14.1% (11.5-14.5) Platelet Count 221x10^3/uL (140-400) Neutrophils (%) (Auto) 68% (31-73) Lymphocytes (%) (Auto) 12% (24-48) Monocytes (%) (Auto) 7% (0-9) Eosinophils (%) (Auto) 12% (0-3) Basophils (%) (Auto) 1% (0-3) Neutrophils # (Auto) 8.5x10^3uL (1.8-7.7) Lymphocytes # (Auto) 1.4x10^3/uL (1.0-4.8) Monocytes # (Auto) 0.9x10^3/uL (0.0-1.1) Eosinophils # (Auto) 1.5x10^3/uL (0.0-0.7) Basophils # (Auto) 0.1x10^3/uL (0.0-0.2) Segmented Neutrophils % 66% (35-66) Band Neutrophils % 2% (0-9) Lymphocytes % 16% (24-48) Atypical Lymphocytes % (Manual) 1% (0-0) Monocytes % 4% (0-10) Eosinophils % 10% (0-5) Metamyelocytes % 1% (0-0) Toxic Granulation Present Platelet Estimate Adequate (ADEQUATE) Large Platelets Present Sodium Level 143mmol/L (136-145) Potassium Level 4.1mmol/L (3.5-5.1) Chloride Level 105mmol/L (98-107) Carbon Dioxide Level 34mmol/L (21-32) Anion Gap 4 (6-14) Blood Urea Nitrogen 22mg/dL (8-26) Creatinine 0.7mg/dL (0.7-1.3) Estimated GFR (Cockcroft-Gault) 109.9 Glucose Level 109mg/dL (70-99) Calcium Level 8.0mg/dL (8.5-10.1) Microbiology 10/10/16 Blood Culture - Preliminary, Resulted NO GROWTH AFTER 1 DAY 10/05/16 Urine Culture - Final, Complete 10/05/16 Urine Culture Result 1 (JABARI) - Final, Complete Medications Current Medications Albuterol/ Ipratropium (Duoneb) 3 ml 1X ONCE NEB Last administered on 22:21; Start 10/05/16 at 22:15; Stop 10/05/16 at 22:50; Status DC Ondansetron HCl 4 mg 4 mg PRN Q8HRS PRN IV NAUSEA/VOMITING; Start 10/05/16 at 23 :00; Stop 10/06/16 at 22:59; Status DC Sodium Chloride (Iv Sodium Chloride 0.9% 1000ml Bag) 1,000 ml @ 100 mls/hr Q10H IV Last administered on 10/06/16 18:59; Start 10/05/16 at 22:59; Stop at 22:58; Status DC Albuterol/ Ipratropium 3 ml 3 ml RTQID NEB Last administered on 10/07/16 07:47 ; Start 10/06/16 at 08:00; Stop 10/07/16 at 07:59; Status DC Ceftriaxone Sodium 1 gm/ Sodium Chloride 50 ml @ 100 mls/hr Q24H IV ; Start 10/06/16 at 22:00; Stop 10/06/16 at 22:00; Status DC Levofloxacin/ Dextrose (LEVAQUIN 750mg PREMIX) 150 ml @ 100 mls/hr 1X ONCE IV Last administered on 10/06/16 01:05; Start 10/05/16 at 23:30; Stop 10/06/16 at 00:59; Status DC Vancomycin HCl 1 each 1 each PRN DAILY PRN MC SEE COMMENTS Last administered on 10/07/16 14:14; Start 10/05/16 at 23:00; Stop 10/08/16 at 18:52; Status DC Ceftriaxone Sodium 50 ml @ 100 mls/hr 1X ONCE IV Last administered on 01:05; Start 10/05/16 at 23:30; Stop 10/05/16 at 23:59; Status DC Vancomycin HCl 2 gm/Sodium Chloride 500 ml @ 250 mls/hr 1X ONCE IV Last administered on 10/05/16 23:26; Start 10/06/16 at 00:00; Stop 10/06/16 at 01:59; Status DC Vancomycin HCl/ Sodium Chloride (Iv Sodium Chloride 0.9% 250ml) 250 ml @ 167 mls/hr Q12H IV Last administered on 10/08/16 13:20; Start 10/06/16 at 12:00; Stop 10/08/16 at 18:52; Status DC Vancomycin HCl 1 each 1 each 1X ONCE MC ; Start 10/07/16 at 11:30; Stop 10/07/16 at 11:31; Status DC Piperacillin Sod/ Tazobactam Sod/ Sodium Chloride (Zosyn/Iv Sodium Chloride 0.9 % 50ml) 50 ml @ 100 mls/hr Q6HRS IV Last administered on 10/06/16 11:56; Start 10/06/16 at 11:00; Stop 10/06/16 at 15:24; Status DC Piperacillin Sod/ Tazobactam Sod (Zosyn Per Pharmacy) 1 each PRN DAILY PRN MC SEE COMMENTS; Start 10/06/16 at 10:15 Aspirin (Ecotrin) 81 mg DAILY PO ; Start 10/06/16 at 11:30; Stop 10/06/16 at 11:30 ; Status DC Bisacodyl (Dulcolax Supp) 10 mg PRN DAILY PRN RC CONSTIPATION; Start 10/06/16 at 10:15 Furosemide (Lasix) 40 mg DAILY PO Last administered on 10/12/16 07:53; Start 10/06/16 at 11:30 Guaifenesin (Mucinex) 600 mg BID PO ; Start 10/06/16 at 11:30; Stop 10/06/16 at 11 :30; Status DC Potassium Chloride (KCl Oral Soln) 10 meq DAILY PEG Last administered on 07:52; Start 10/06/16 at 11:30 Simvastatin (Zocor) 20 mg QHS PO Last administered on 10/11/16 20:41; Start at 21:00 Tamsulosin HCl (Flomax) 0.4 mg DAILY PO Last administered on 10/07/16 08:58; Start 10/06/16 at 11:30; Stop 10/08/16 at 10:18; Status DC Multivitamins/ Minerals (Ocuvite Lutein) 1 cap DAILY PO Last administered on 07:53; Start 10/06/16 at 11:00 Artificial Tears (Artificial Tears) 1 drop PRN BID PRN OU DRY EYE Last administered on 10/11/16 08:39; Start 10/06/16 at 10:30 Aspirin (Children'S Aspirin) 81 mg DAILYWBKFT PO Last administered on 10/08/16 09:00; Start 10/06/16 at 11:30; Stop 10/08/16 at 11:31; Status DC Guaifenesin (Robitussin) 200 mg QID PO Last administered on 10/12/16 07:52; Start 10/06/16 at 11:30 Furosemide (Lasix) 40 mg 1X ONCE IVP Last administered on 10/06/16 12:01; Start 10/06/16 at 12:00; Stop 10/06/16 at 12:01; Status DC Acetaminophen (Tylenol) 650 mg PRN Q6HRS PRN PEG MILD PAIN / TEMP Last administered on 10/10/16 09:42; Start 10/06/16 at 12:15 Ondansetron HCl (Zofran) 4 mg PRN Q6HRS PRN IV NAUSEA/VOMITING; Start 10/06/16 at 12:15 Enoxaparin Sodium (Lovenox 40mg Syringe) 40 mg Q24H SQ Last administered on 11:58; Start 10/06/16 at 13:00 Nystatin 1 alejandro 1 alejandro BID TP Last administered on 10/12/16 07:54; Start at 14:30 Piperacillin Sod/ Tazobactam Sod/ Sodium Chloride (Zosyn/Iv Sodium Chloride 0.9 % 100ml) 100 ml @ 200 mls/hr Q6HRS IV Last administered on 10/12/16 06:12; Start 10/06/16 at 18:00 Meloxicam (Mobic) 7.5 mg DAILY PO Last administered on 10/12/16 07:54; Start 10/07/16 at 10:00 Acetaminophen/ Hydrocodone Bitart (Lortab 5/325) 1 tab PRN Q4HRS PRN PO MODERATE - SEVERE PAIN Last administered on 10/12/16 07:50; Start 10/07/16 at 10 :45 Furosemide (Lasix) 20 mg 1X ONCE IVP Last administered on 10/07/16 18:24; Start 10/07/16 at 12:00; Stop 10/07/16 at 12:01; Status DC Digoxin 500 mcg 500 mcg 1X ONCE IV Last administered on 10/07/16 22:38; Start 10/07/16 at 22:15; Stop 10/07/16 at 22:17; Status DC Micafungin Sodium/ Dextrose (Mycamine) 100 ml @ 100 mls/hr Q24H IV Last administered on 10/12/16 07:50; Start 10/08/16 at 09:00 Iohexol (Omnipaque 240 Mg/ml) 30 ml 1X ONCE PO Last administered on 10/08/16 11:47; Start 10/08/16 at 09:15; Stop 10/08/16 at 09:18; Status DC Iohexol (Omnipaque 300 Mg/ml) 75 ml 1X ONCE IV Last administered on 10/08/16 11:46; Start 10/08/16 at 09:15; Stop 10/08/16 at 09:18; Status DC Finasteride (Proscar) 5 mg DAILY PO Last administered on 10/12/16 07:53; Start 10/09/16 at 09:00 Methylprednisolone Acetate (Depo-Medrol 40mg Vial) 40 mg 1X ONCE IM ; Start 10/08/16 at 10:45; Stop 10/08/16 at 10:53; Status DC Methylprednisolone Acetate (Depo-Medrol 40mg Vial) 40 mg 1X ONCE IM ; Start 10/08/16 at 10:45; Stop 10/08/16 at 10:53; Status DC Bupivacaine HCl (Sensorcaine-Mpf 0.25%) 10 ml 1X ONCE IJ ; Start 10/08/16 at 10: 45; Stop 10/08/16 at 10:53; Status DC Digoxin (Lanoxin) 125 mcg DAILY PO Last administered on 10/12/16 07:53; Start 10/08/16 at 11:30 Aspirin (Children'S Aspirin) 325 mg DAILYWBKFT PO Last administered on 12:38; Start 10/08/16 at 11:30; Stop 10/08/16 at 13:30; Status DC Lactobacillus Acidophilus (Bacid, Danielle-Bid) 1 tab DAILY PO Last administered on 10/12/16 07:53; Start 10/08/16 at 13:00 Aspirin (Children'S Aspirin) 324 mg DAILYWBKFT PO Last administered on 07:52; Start 10/08/16 at 13:30 Oxycodone/ Acetaminophen (Percocet 10/325) 1 tab PRN Q6HRS PRN PO PAIN; Start 10/09/16 at 10:30 Furosemide (Lasix) 20 mg 1X ONCE IVP Last administered on 10/09/16 16:54; Start 10/09/16 at 15:00; Stop 10/09/16 at 15:01; Status DC Urea (Pritchett Lo 40, X-Viate) 1 alejandro DAILY TP Last administered on 10/12/16 07:55; Start 10/09/16 at 18:00 Nystatin 5 ml 5 ml [id number] Last administered on 10/12/16 07:54; Start 06/18 at 13:00 Potassium Chloride (KCl Premix 10meq) 100 ml @ 100 mls/hr Q1H IV Last administered on 10/10/16 17:00; Start 10/10/16 at 14:00; Stop 10/10/16 at 17:59 ; Status DC Vancomycin HCl 1 each 1 each PRN DAILY PRN MC SEE COMMENTS Last administered on 10/11/16 15:17; Start 10/10/16 at 14:45 Vancomycin HCl 2 gm/Sodium Chloride 500 ml @ 250 mls/hr 1X ONCE IV Last administered on 10/10/16 15:30; Start 10/10/16 at 15:30; Stop 10/10/16 at 17:29 ; Status DC Vancomycin HCl/ Sodium Chloride (Iv Sodium Chloride 0.9% 250ml) 250 ml @ 167 mls/hr Q12H IV Last administered on 10/12/16 04:32; Start 10/11/16 at 05:00 Active Scripts Active Reported Isopto Tears (Hypromellose) 15 Ml Drops 15 Ml OP Oxycodone Hcl 10 Mg Tablet 1 Tab PO QID Ocuvite Tablet (Vit A,C & E/Lutein/Minerals) 1 Each Tablet 1 Each PO Dulcolax (Bisacodyl) 10 Mg Supp.rect 10 Mg RC PRN DAILY PRN Milk Of Magnesia (Magnesium Hydroxide) 400 Mg/5 Ml Oral.susp 400 Mg PO Simvastatin 20 Mg Tablet 1 Tab PO QHS Refresh Optive Eye Drops (Carboxymethylcellulos/Glycerin) 15 Ml Drops 1 Drop EACHEYE BID Tamsulosin Hcl 0.4 Mg Cap.er.24h 1 Cap PO DAILY Potassium Chloride Oral Liquid (Potassium Chloride) 20 Meq/15 Ml Liquid 10 Meq PEG DAILY Aspir 81 (Aspirin) 81 Mg Tablet.dr 1 Tab PO DAILY Furosemide 40 Mg Tablet 1 Tab PO DAILY Meloxicam 7.5 Mg Tablet 1 Tab PO DAILY Trazodone Hcl 50 Mg Tablet 1 Tab PO QHS Mucinex (Guaifenesin) 600 Mg Tablet.er 600 Mg PO Vitals/I & O Vital Sign - Last 24 Hours 10/11/16 10/11/16 10/11/16 10/11/16 11:59 14:40 19:00 19:10 Temp 97.7 97.7 97.7 97.7 Pulse 67 72 Resp 24 18 B/P 138/53 131/49 Pulse Ox 95 97 97 O2 Delivery Nasal Cannula Nasal Cannula Nasal Cannula Nasal Cannula O2 Flow Rate 5.0 5.0 5.0 5.0 10/11/16 10/11/16 10/12/16 10/12/16 20:42 23:02 02:35 07:00 Temp 97.4 97.3 98.1 97.4 97.3 98.1 Pulse 69 65 77 Resp 20 18 18 14 B/P 125/85 115/67 160/68 Pulse Ox 97 97 95 95 O2 Delivery Nasal Cannula Nasal Cannula Nasal Cannula Nasal Cannula O2 Flow Rate 5.0 5.0 5.0 5.0 10/12/16 10/12/16 10/12/16 10/12/16 07:50 07:53 08:00 08:50 Pulse 65 Resp 20 18 B/P 115/67 Pulse Ox 95 95 O2 Delivery Nasal Cannula Nasal Cannula Nasal Cannula O2 Flow Rate 5.0 5.0 5.0 Intake and Output 10/11/16 10/11/1617 15:00 23:00 07:00 Intake Total 1800 ml 1687 ml Output Total 800 ml 1000 ml Balance 1000 ml 687 ml RODRIGUE MAYNARD MD Oct 12, 2016 10:37
[2016-10-12 11:00] VITALS: BP 145/48
--- NOTE | 2016-10-12 11:11 | PDOC ---
Infectious Disease Note Subjective Subjective more alert and says ok ROS ROS GEN: Denies fevers, chills, sweats HEENT: Denies blurred vision, sore throat CV: Denies chest pain RESP: Denies shortness of air, cough GI: Denies n/v/d NEURO: Denies confusion, dizziness MSK: Denies weakness, joint pain/swelling Vital Sign Vital Signs Vital Signs Date Time Temp Pulse Resp B/P Pulse Ox O2 Delivery O2 Flow Rate FiO2 10/12/16 08:50 18 95 Nasal Cannula 5.0 10/12/16 07:53 65 115/67 10/12/16 07:00 98.1 98.1 Physical Exam PHYSICAL EXAM GENERAL: More alert but still weak, NAD HEENT: Oral cavity dry LUNGS: CTA 02 HEART: S1S2 ABD: Obese, soft, No grimace or guarding to palpation. PEG : Tinsley. Scrotal swelling EXT: BLE edema. . Left great toe bandaged. Left elbow effusion [employer]: Alert, seems to comprehend SKIN: No rash IV: ok Labs Lab Laboratory Tests Test 10/12/16 04:20 White Blood Count 12.4x10^3/uL (4.0-11.0) Red Blood Count 3.24x10^6/uL (4.30-5.70) Hemoglobin 9.9g/dL (13.0-17.5) Hematocrit 30.1% (39.0-53.0) Mean Corpuscular Volume 93fL (79-100) Mean Corpuscular Hemoglobin 31pg (25-35) Mean Corpuscular Hemoglobin Concent 33g/dL (31-37) Red Cell Distribution Width 14.1% (11.5-14.5) Platelet Count 221x10^3/uL (140-400) Neutrophils (%) (Auto) 68% (31-73) Lymphocytes (%) (Auto) 12% (24-48) Monocytes (%) (Auto) 7% (0-9) Eosinophils (%) (Auto) 12% (0-3) Basophils (%) (Auto) 1% (0-3) Neutrophils # (Auto) 8.5x10^3uL (1.8-7.7) Lymphocytes # (Auto) 1.4x10^3/uL (1.0-4.8) Monocytes # (Auto) 0.9x10^3/uL (0.0-1.1) Eosinophils # (Auto) 1.5x10^3/uL (0.0-0.7) Basophils # (Auto) 0.1x10^3/uL (0.0-0.2) Segmented Neutrophils % 66% (35-66) Band Neutrophils % 2% (0-9) Lymphocytes % 16% (24-48) Atypical Lymphocytes % (Manual) 1% (0-0) Monocytes % 4% (0-10) Eosinophils % 10% (0-5) Metamyelocytes % 1% (0-0) Toxic Granulation Present Platelet Estimate Adequate (ADEQUATE) Large Platelets Present Sodium Level 143mmol/L (136-145) Potassium Level 4.1mmol/L (3.5-5.1) Chloride Level 105mmol/L (98-107) Carbon Dioxide Level 34mmol/L (21-32) Anion Gap 4 (6-14) Blood Urea Nitrogen 22mg/dL (8-26) Creatinine 0.7mg/dL (0.7-1.3) Estimated GFR (Cockcroft-Gault) 109.9 Glucose Level 109mg/dL (70-99) Calcium Level 8.0mg/dL (8.5-10.1) Objective Assessment Leukocytosis - increased Left elbow effusion Fever - better Pneumonia Gout Debility Gluteal ulcer/decub Diarrhea. c. diff negative s/p nails debrided x 10 with microbleed to left hallux. 10/09 Inguinal hernia Plan Plan of Care MRI - Left elbow Consult Ortho Cont Zosyn (10/06) and micafungin (10/08) Vanc (10/10) F/u Blood cults times 2 Monitor labs/cultures D/w Grand - daughter RAÚL SCHMITT MD Oct 12, 2016 11:11
[2016-10-12] MEDS: ENOXAPARIN 40 MG/0.4 ML DISP.SYRIN. SQ SCH (11:22)
--- NOTE | 2016-10-12 12:03 | PDOC ---
PROGRESS NOTES Chief Complaint Chief Complaint 1. AMS, metabolic encephalopathy likely , 2/2 to 2 or sedative meds in rehab 2. acute resp failure with hypoxia, 2/2 HCAP? 3. sepsis with HCAP? 4. h/o CAD with CABG 5. CHF, ef 50% . 6 htn 7. hld 8 BPH sinclair 9. dysphasia with PEG recently 10. baseline mild dementia 11. recent hallucination with PNA 12. h/o CVA wo weakness 13. gout, OA 14. RAPID Afib, new 15. orthostatic hypotension 16. stable AAA 4CM History of Present Illness History of Present Illness Patient was lying in bed, granddaughter was present at bedside at the time of evaluation. pt. was in no acute distress, answered no questions, was confused, had no cough, no SOB, was on nasal canula, leukocytosis is improved, reported pain from gout. I answered all the questions of granddaughter and discussed plan of care with her and RN, Vitals Vitals Vital Signs Date Time Temp Pulse Resp B/P Pulse Ox O2 Delivery O2 Flow Rate FiO2 10/12/16 11:00 98.2 66 14 145/48 98 Nasal Cannula 5.0 98.2 Physical Exam General: Alert, No acute distress, Other (unable to understand, poor historian. ) Heart: Regular rate, Normal S1, Normal S2 Lungs: Other (rhonchi) Abdomen: Soft, No tenderness, Other (ND, peg tube in place) Extremities: No clubbing, No cyanosis Skin: Other (has skin brusies and dressing on right great toe, gouty inflammation on left elbow) Labs LABS Laboratory Tests Test 10/12/16 04:20 White Blood Count 12.4x10^3/uL (4.0-11.0) Red Blood Count 3.24x10^6/uL (4.30-5.70) Hemoglobin 9.9g/dL (13.0-17.5) Hematocrit 30.1% (39.0-53.0) Mean Corpuscular Volume 93fL (79-100) Mean Corpuscular Hemoglobin 31pg (25-35) Mean Corpuscular Hemoglobin Concent 33g/dL (31-37) Red Cell Distribution Width 14.1% (11.5-14.5) Platelet Count 221x10^3/uL (140-400) Neutrophils (%) (Auto) 68% (31-73) Lymphocytes (%) (Auto) 12% (24-48) Monocytes (%) (Auto) 7% (0-9) Eosinophils (%) (Auto) 12% (0-3) Basophils (%) (Auto) 1% (0-3) Neutrophils # (Auto) 8.5x10^3uL (1.8-7.7) Lymphocytes # (Auto) 1.4x10^3/uL (1.0-4.8) Monocytes # (Auto) 0.9x10^3/uL (0.0-1.1) Eosinophils # (Auto) 1.5x10^3/uL (0.0-0.7) Basophils # (Auto) 0.1x10^3/uL (0.0-0.2) Segmented Neutrophils % 66% (35-66) Band Neutrophils % 2% (0-9) Lymphocytes % 16% (24-48) Atypical Lymphocytes % (Manual) 1% (0-0) Monocytes % 4% (0-10) Eosinophils % 10% (0-5) Metamyelocytes % 1% (0-0) Toxic Granulation Present Platelet Estimate Adequate (ADEQUATE) Large Platelets Present Sodium Level 143mmol/L (136-145) Potassium Level 4.1mmol/L (3.5-5.1) Chloride Level 105mmol/L (98-107) Carbon Dioxide Level 34mmol/L (21-32) Anion Gap 4 (6-14) Blood Urea Nitrogen 22mg/dL (8-26) Creatinine 0.7mg/dL (0.7-1.3) Estimated GFR (Cockcroft-Gault) 109.9 Glucose Level 109mg/dL (70-99) Calcium Level 8.0mg/dL (8.5-10.1) Review of Systems Review of Systems No cough, no SOB, no CP, awake, confused, inflamed left elbow, dressing on right great toe, skin bruises Assessment and Plan Assessmemt and Plan Assessment: 1. AMS, metabolic encephalopathy likely , 2/2 to 2 or sedative meds in rehab 2. acute resp failure with hypoxia, 2/2 HCAP? 3. sepsis with HCAP? 4. h/o CAD with CABG 5. CHF, ef 50% . 6 htn 7. hld 8 BPH sinclair 9. dysphasia with PEG recently 10. baseline mild dementia 11. recent hallucination with PNA 12. h/o CVA wo weakness 13. gout, OA 14. RAPID Afib, new 15. orthostatic hypotension 16. stable AAA 4CM Plan: - Continue Peg feeding - Continue antibiotics per ID recommendations - Continue prn pain medication - continue DVT prophylaxis - recheck labs in AM - continue PT/OT - continue BIPAP prn - Appreciate subspecialities inputs and recommendations - D/w granddaughter Problems: Comment Review of Relevant I have reviewed the following items cassidy (where applicable) has been applied. Labs Laboratory Tests Test 10/10/16 17:10 10/11/16 04:17 10/12/16 04:20 Stool Occult Blood Negative (NEG) White Blood Count 10.5x10^3/uL (4.0-11.0) 12.4x10^3/uL (4.0-11.0) Red Blood Count 3.14x10^6/uL (4.30-5.70) 3.24x10^6/uL (4.30-5.70) Hemoglobin 9.6g/dL (13.0-17.5) 9.9g/dL (13.0-17.5) Hematocrit 29.3% (39.0-53.0) 30.1% (39.0-53.0) Mean Corpuscular Volume 94fL (79-100) 93fL (79-100) Mean Corpuscular Hemoglobin 31pg (25-35) 31pg (25-35) Mean Corpuscular Hemoglobin Concent 33g/dL (31-37) 33g/dL (31-37) Red Cell Distribution Width 14.3% (11.5-14.5) 14.1% (11.5-14.5) Platelet Count 209x10^3/uL (140-400) 221x10^3/uL (140-400) Neutrophils (%) (Auto) 72% (31-73) 68% (31-73) Lymphocytes (%) (Auto) 12% (24-48) 12% (24-48) Monocytes (%) (Auto) 6% (0-9) 7% (0-9) Eosinophils (%) (Auto) 9% (0-3) 12% (0-3) Basophils (%) (Auto) 1% (0-3) 1% (0-3) Neutrophils # (Auto) 7.6x10^3uL (1.8-7.7) 8.5x10^3uL (1.8-7.7) Lymphocytes # (Auto) 1.2x10^3/uL (1.0-4.8) 1.4x10^3/uL (1.0-4.8) Monocytes # (Auto) 0.6x10^3/uL (0.0-1.1) 0.9x10^3/uL (0.0-1.1) Eosinophils # (Auto) 1.0x10^3/uL (0.0-0.7) 1.5x10^3/uL (0.0-0.7) Basophils # (Auto) 0.1x10^3/uL (0.0-0.2) 0.1x10^3/uL (0.0-0.2) Sodium Level 142mmol/L (136-145) 143mmol/L (136-145) Potassium Level 3.7mmol/L (3.5-5.1) 4.1mmol/L (3.5-5.1) Chloride Level 103mmol/L (98-107) 105mmol/L (98-107) Carbon Dioxide Level 34mmol/L (21-32) 34mmol/L (21-32) Anion Gap 5 (6-14) 4 (6-14) Blood Urea Nitrogen 25mg/dL (8-26) 22mg/dL (8-26) Creatinine 0.8mg/dL (0.7-1.3) 0.7mg/dL (0.7-1.3) Estimated GFR (Cockcroft-Gault) 94.2 109.9 Glucose Level 132mg/dL (70-99) 109mg/dL (70-99) Calcium Level 8.3mg/dL (8.5-10.1) 8.0mg/dL (8.5-10.1) Phosphorus Level 2.8mg/dL (2.6-4.7) Magnesium Level 2.1mg/dL (1.8-2.4) Segmented Neutrophils % 66% (35-66) Band Neutrophils % 2% (0-9) Lymphocytes % 16% (24-48) Atypical Lymphocytes % (Manual) 1% (0-0) Monocytes % 4% (0-10) Eosinophils % 10% (0-5) Metamyelocytes % 1% (0-0) Toxic Granulation Present Platelet Estimate Adequate (ADEQUATE) Large Platelets Present Laboratory Tests Test 10/12/16 04:20 White Blood Count 12.4x10^3/uL (4.0-11.0) Red Blood Count 3.24x10^6/uL (4.30-5.70) Hemoglobin 9.9g/dL (13.0-17.5) Hematocrit 30.1% (39.0-53.0) Mean Corpuscular Volume 93fL (79-100) Mean Corpuscular Hemoglobin 31pg (25-35) Mean Corpuscular Hemoglobin Concent 33g/dL (31-37) Red Cell Distribution Width 14.1% (11.5-14.5) Platelet Count 221x10^3/uL (140-400) Neutrophils (%) (Auto) 68% (31-73) Lymphocytes (%) (Auto) 12% (24-48) Monocytes (%) (Auto) 7% (0-9) Eosinophils (%) (Auto) 12% (0-3) Basophils (%) (Auto) 1% (0-3) Neutrophils # (Auto) 8.5x10^3uL (1.8-7.7) Lymphocytes # (Auto) 1.4x10^3/uL (1.0-4.8) Monocytes # (Auto) 0.9x10^3/uL (0.0-1.1) Eosinophils # (Auto) 1.5x10^3/uL (0.0-0.7) Basophils # (Auto) 0.1x10^3/uL (0.0-0.2) Segmented Neutrophils % 66% (35-66) Band Neutrophils % 2% (0-9) Lymphocytes % 16% (24-48) Atypical Lymphocytes % (Manual) 1% (0-0) Monocytes % 4% (0-10) Eosinophils % 10% (0-5) Metamyelocytes % 1% (0-0) Toxic Granulation Present Platelet Estimate Adequate (ADEQUATE) Large Platelets Present Sodium Level 143mmol/L (136-145) Potassium Level 4.1mmol/L (3.5-5.1) Chloride Level 105mmol/L (98-107) Carbon Dioxide Level 34mmol/L (21-32) Anion Gap 4 (6-14) Blood Urea Nitrogen 22mg/dL (8-26) Creatinine 0.7mg/dL (0.7-1.3) Estimated GFR (Cockcroft-Gault) 109.9 Glucose Level 109mg/dL (70-99) Calcium Level 8.0mg/dL (8.5-10.1) Microbiology 10/10/16 Blood Culture - Preliminary, Resulted NO GROWTH AFTER 1 DAY 10/05/16 Urine Culture - Final, Complete 10/05/16 Urine Culture Result 1 (JABARI) - Final, Complete Medications Current Medications Albuterol/ Ipratropium (Duoneb) 3 ml 1X ONCE NEB Last administered on 22:21; Start 10/05/16 at 22:15; Stop 10/05/16 at 22:50; Status DC Ondansetron HCl 4 mg 4 mg PRN Q8HRS PRN IV NAUSEA/VOMITING; Start 10/05/16 at 23 :00; Stop 10/06/16 at 22:59; Status DC Sodium Chloride (Iv Sodium Chloride 0.9% 1000ml Bag) 1,000 ml @ 100 mls/hr Q10H IV Last administered on 10/06/16 18:59; Start 10/05/16 at 22:59; Stop at 22:58; Status DC Albuterol/ Ipratropium 3 ml 3 ml RTQID NEB Last administered on 10/07/16 07:47 ; Start 10/06/16 at 08:00; Stop 10/07/16 at 07:59; Status DC Ceftriaxone Sodium 1 gm/ Sodium Chloride 50 ml @ 100 mls/hr Q24H IV ; Start 10/06/16 at 22:00; Stop 10/06/16 at 22:00; Status DC Levofloxacin/ Dextrose (LEVAQUIN 750mg PREMIX) 150 ml @ 100 mls/hr 1X ONCE IV Last administered on 10/06/16 01:05; Start 10/05/16 at 23:30; Stop 10/06/16 at 00:59; Status DC Vancomycin HCl 1 each 1 each PRN DAILY PRN MC SEE COMMENTS Last administered on 10/07/16 14:14; Start 10/05/16 at 23:00; Stop 10/08/16 at 18:52; Status DC Ceftriaxone Sodium 50 ml @ 100 mls/hr 1X ONCE IV Last administered on 01:05; Start 10/05/16 at 23:30; Stop 10/05/16 at 23:59; Status DC Vancomycin HCl 2 gm/Sodium Chloride 500 ml @ 250 mls/hr 1X ONCE IV Last administered on 10/05/16 23:26; Start 10/06/16 at 00:00; Stop 10/06/16 at 01:59; Status DC Vancomycin HCl/ Sodium Chloride (Iv Sodium Chloride 0.9% 250ml) 250 ml @ 167 mls/hr Q12H IV Last administered on 10/08/16 13:20; Start 10/06/16 at 12:00; Stop 10/08/16 at 18:52; Status DC Vancomycin HCl 1 each 1 each 1X ONCE MC ; Start 10/07/16 at 11:30; Stop 10/07/16 at 11:31; Status DC Piperacillin Sod/ Tazobactam Sod/ Sodium Chloride (Zosyn/Iv Sodium Chloride 0.9 % 50ml) 50 ml @ 100 mls/hr Q6HRS IV Last administered on 10/06/16 11:56; Start 10/06/16 at 11:00; Stop 10/06/16 at 15:24; Status DC Piperacillin Sod/ Tazobactam Sod (Zosyn Per Pharmacy) 1 each PRN DAILY PRN MC SEE COMMENTS; Start 10/06/16 at 10:15 Aspirin (Ecotrin) 81 mg DAILY PO ; Start 10/06/16 at 11:30; Stop 10/06/16 at 11:30 ; Status DC Bisacodyl (Dulcolax Supp) 10 mg PRN DAILY PRN RC CONSTIPATION; Start 10/06/16 at 10:15 Furosemide (Lasix) 40 mg DAILY PO Last administered on 10/12/16 07:53; Start 10/06/16 at 11:30 Guaifenesin (Mucinex) 600 mg BID PO ; Start 10/06/16 at 11:30; Stop 10/06/16 at 11 :30; Status DC Potassium Chloride (KCl Oral Soln) 10 meq DAILY PEG Last administered on 07:52; Start 10/06/16 at 11:30 Simvastatin (Zocor) 20 mg QHS PO Last administered on 10/11/16 20:41; Start at 21:00 Tamsulosin HCl (Flomax) 0.4 mg DAILY PO Last administered on 10/07/16 08:58; Start 10/06/16 at 11:30; Stop 10/08/16 at 10:18; Status DC Multivitamins/ Minerals (Ocuvite Lutein) 1 cap DAILY PO Last administered on 07:53; Start 10/06/16 at 11:00 Artificial Tears (Artificial Tears) 1 drop PRN BID PRN OU DRY EYE Last administered on 10/11/16 08:39; Start 10/06/16 at 10:30 Aspirin (Children'S Aspirin) 81 mg DAILYWBKFT PO Last administered on 10/08/16 09:00; Start 10/06/16 at 11:30; Stop 10/08/16 at 11:31; Status DC Guaifenesin (Robitussin) 200 mg QID PO Last administered on 10/12/16 11:21; Start 10/06/16 at 11:30 Furosemide (Lasix) 40 mg 1X ONCE IVP Last administered on 10/06/16 12:01; Start 10/06/16 at 12:00; Stop 10/06/16 at 12:01; Status DC Acetaminophen (Tylenol) 650 mg PRN Q6HRS PRN PEG MILD PAIN / TEMP Last administered on 10/10/16 09:42; Start 10/06/16 at 12:15 Ondansetron HCl (Zofran) 4 mg PRN Q6HRS PRN IV NAUSEA/VOMITING; Start 10/06/16 at 12:15 Enoxaparin Sodium (Lovenox 40mg Syringe) 40 mg Q24H SQ Last administered on 11:22; Start 10/06/16 at 13:00 Nystatin 1 alejandro 1 alejandro BID TP Last administered on 10/12/16 07:54; Start at 14:30 Piperacillin Sod/ Tazobactam Sod/ Sodium Chloride (Zosyn/Iv Sodium Chloride 0.9 % 100ml) 100 ml @ 200 mls/hr Q6HRS IV Last administered on 10/12/16 11:22; Start 10/06/16 at 18:00 Meloxicam (Mobic) 7.5 mg DAILY PO Last administered on 10/12/16 07:54; Start 10/07/16 at 10:00 Acetaminophen/ Hydrocodone Bitart (Lortab 5/325) 1 tab PRN Q4HRS PRN PO MODERATE - SEVERE PAIN Last administered on 10/12/16 07:50; Start 10/07/16 at 10 :45 Furosemide (Lasix) 20 mg 1X ONCE IVP Last administered on 10/07/16 18:24; Start 10/07/16 at 12:00; Stop 10/07/16 at 12:01; Status DC Digoxin 500 mcg 500 mcg 1X ONCE IV Last administered on 10/07/16 22:38; Start 10/07/16 at 22:15; Stop 10/07/16 at 22:17; Status DC Micafungin Sodium/ Dextrose (Mycamine) 100 ml @ 100 mls/hr Q24H IV Last administered on 10/12/16 07:50; Start 10/08/16 at 09:00 Iohexol (Omnipaque 240 Mg/ml) 30 ml 1X ONCE PO Last administered on 10/08/16 11:47; Start 10/08/16 at 09:15; Stop 10/08/16 at 09:18; Status DC Iohexol (Omnipaque 300 Mg/ml) 75 ml 1X ONCE IV Last administered on 10/08/16 11:46; Start 10/08/16 at 09:15; Stop 10/08/16 at 09:18; Status DC Finasteride (Proscar) 5 mg DAILY PO Last administered on 10/12/16 07:53; Start 10/09/16 at 09:00 Methylprednisolone Acetate (Depo-Medrol 40mg Vial) 40 mg 1X ONCE IM ; Start 10/08/16 at 10:45; Stop 10/08/16 at 10:53; Status DC Methylprednisolone Acetate (Depo-Medrol 40mg Vial) 40 mg 1X ONCE IM ; Start 10/08/16 at 10:45; Stop 10/08/16 at 10:53; Status DC Bupivacaine HCl (Sensorcaine-Mpf 0.25%) 10 ml 1X ONCE IJ ; Start 10/08/16 at 10: 45; Stop 10/08/16 at 10:53; Status DC Digoxin (Lanoxin) 125 mcg DAILY PO Last administered on 10/12/16 07:53; Start 10/08/16 at 11:30 Aspirin (Children'S Aspirin) 325 mg DAILYWBKFT PO Last administered on 12:38; Start 10/08/16 at 11:30; Stop 10/08/16 at 13:30; Status DC Lactobacillus Acidophilus (Bacid, Danielle-Bid) 1 tab DAILY PO Last administered on 10/12/16 07:53; Start 10/08/16 at 13:00 Aspirin (Children'S Aspirin) 324 mg DAILYWBKFT PO Last administered on 07:52; Start 10/08/16 at 13:30 Oxycodone/ Acetaminophen (Percocet 10/325) 1 tab PRN Q6HRS PRN PO PAIN; Start 10/09/16 at 10:30 Furosemide (Lasix) 20 mg 1X ONCE IVP Last administered on 10/09/16 16:54; Start 10/09/16 at 15:00; Stop 10/09/16 at 15:01; Status DC Urea (Ritu Lo 40, X-Viate) 1 alejandro DAILY TP Last administered on 10/12/16 07:55; Start 10/09/16 at 18:00 Nystatin 5 ml 5 ml [id number] Last administered on 10/12/16 11:21; Start 06/18 at 13:00 Potassium Chloride (KCl Premix 10meq) 100 ml @ 100 mls/hr Q1H IV Last administered on 10/10/16 17:00; Start 10/10/16 at 14:00; Stop 10/10/16 at 17:59 ; Status DC Vancomycin HCl 1 each 1 each PRN DAILY PRN MC SEE COMMENTS Last administered on 10/11/16 15:17; Start 10/10/16 at 14:45 Vancomycin HCl 2 gm/Sodium Chloride 500 ml @ 250 mls/hr 1X ONCE IV Last administered on 10/10/16 15:30; Start 10/10/16 at 15:30; Stop 10/10/16 at 17:29 ; Status DC Vancomycin HCl/ Sodium Chloride (Iv Sodium Chloride 0.9% 250ml) 250 ml @ 167 mls/hr Q12H IV Last administered on 10/12/16t 04:32; Start 10/11/16 at 05:00 Active Scripts Active Reported Isopto Tears (Hypromellose) 15 Ml Drops 15 Ml OP Oxycodone Hcl 10 Mg Tablet 1 Tab PO QID Ocuvite Tablet (Vit A,C & E/Lutein/Minerals) 1 Each Tablet 1 Each PO Dulcolax (Bisacodyl) 10 Mg Supp.rect 10 Mg RC PRN DAILY PRN Milk Of Magnesia (Magnesium Hydroxide) 400 Mg/5 Ml Oral.susp 400 Mg PO Simvastatin 20 Mg Tablet 1 Tab PO QHS Refresh Optive Eye Drops (Carboxymethylcellulos/Glycerin) 15 Ml Drops 1 Drop EACHEYE BID Tamsulosin Hcl 0.4 Mg Cap.er.24h 1 Cap PO DAILY Potassium Chloride Oral Liquid (Potassium Chloride) 20 Meq/15 Ml Liquid 10 Meq PEG DAILY Aspir 81 (Aspirin) 81 Mg Tablet.dr 1 Tab PO DAILY Furosemide 40 Mg Tablet 1 Tab PO DAILY Meloxicam 7.5 Mg Tablet 1 Tab PO DAILY Trazodone Hcl 50 Mg Tablet 1 Tab PO QHS Mucinex (Guaifenesin) 600 Mg Tablet.er 600 Mg PO Vitals/I & O Vital Sign - Last 24 Hours 10/11/16 10/11/16 10/11/16 10/11/16 11:59 14:40 19:00 19:10 Temp 97.7 97.7 97.7 97.7 Pulse 67 72 Resp 24 18 B/P 138/53 131/49 Pulse Ox 95 97 97 O2 Delivery Nasal Cannula Nasal Cannula Nasal Cannula Nasal Cannula O2 Flow Rate 5.0 5.0 5.0 5.0 10/11/16 10/11/16 10/12/16 10/12/16 20:42 23:02 02:35 07:00 Temp 97.4 97.3 98.1 97.4 97.3 98.1 Pulse 69 65 77 Resp 20 18 18 14 B/P 125/85 115/67 160/68 Pulse Ox 97 97 95 95 O2 Delivery Nasal Cannula Nasal Cannula Nasal Cannula Nasal Cannula O2 Flow Rate 5.0 5.0 5.0 5.0 10/12/16 10/12/16 10/12/16 10/12/16 07:50 07:53 08:00 08:50 Pulse 65 Resp 20 18 B/P 115/67 Pulse Ox 95 95 O2 Delivery Nasal Cannula Nasal Cannula Nasal Cannula O2 Flow Rate 5.0 5.0 5.0 10/12/16 11:00 Temp 98.2 98.2 Pulse 66 Resp 14 B/P 145/48 Pulse Ox 98 O2 Delivery Nasal Cannula O2 Flow Rate 5.0 Intake and Output 10/11/16 10/11/16 10/12/16 15:00 23:00 07:00 Intake Total 1800 ml 1687 ml Output Total 800 ml 1000 ml Balance 1000 ml 687 ml LILLY VÁZQUEZ III DO Oct 12, 2016 12:03
[2016-10-12] MEDS: VANCOMYCIN PER PHARMACY MC PRN (12:27)
[2016-10-12 14:52] VITALS: BP 138/58
[2016-10-12] MEDS: OXYCODONE/APAP 10/325 TABLET. PO PRN (15:39)
--- NOTE | 2016-10-12 15:58 | PDOC ---
PULMONARY PROGRESS NOTES Subjective looks better resolved fever Vitals Vital Signs Date Time Temp Pulse Resp B/P Pulse Ox O2 Delivery O2 Flow Rate FiO2 10/12/16 15:39 20 94 Nasal Cannula 5.0 10/12/16 14:52 97.5 81 138/58 97.5 General: Alert, No acute distress Lungs: Other (rhonchi) Cardiovascular: S1 Abdomen: Soft Neuro Exam: Alert Extremities: Other (1+edema) Skin: Warm Labs Laboratory Tests Test 10/10/16 17:10 10/11/16 04:17 10/12/16 04:20 Stool Occult Blood Negative (NEG) White Blood Count 10.5x10^3/uL (4.0-11.0) 12.4x10^3/uL (4.0-11.0) Red Blood Count 3.14x10^6/uL (4.30-5.70) 3.24x10^6/uL (4.30-5.70) Hemoglobin 9.6g/dL (13.0-17.5) 9.9g/dL (13.0-17.5) Hematocrit 29.3% (39.0-53.0) 30.1% (39.0-53.0) Mean Corpuscular Volume 94fL (79-100) 93fL (79-100) Mean Corpuscular Hemoglobin 31pg (25-35) 31pg (25-35) Mean Corpuscular Hemoglobin Concent 33g/dL (31-37) 33g/dL (31-37) Red Cell Distribution Width 14.3% (11.5-14.5) 14.1% (11.5-14.5) Platelet Count 209x10^3/uL (140-400) 221x10^3/uL (140-400) Neutrophils (%) (Auto) 72% (31-73) 68% (31-73) Lymphocytes (%) (Auto) 12% (24-48) 12% (24-48) Monocytes (%) (Auto) 6% (0-9) 7% (0-9) Eosinophils (%) (Auto) 9% (0-3) 12% (0-3) Basophils (%) (Auto) 1% (0-3) 1% (0-3) Neutrophils # (Auto) 7.6x10^3uL (1.8-7.7) 8.5x10^3uL (1.8-7.7) Lymphocytes # (Auto) 1.2x10^3/uL (1.0-4.8) 1.4x10^3/uL (1.0-4.8) Monocytes # (Auto) 0.6x10^3/uL (0.0-1.1) 0.9x10^3/uL (0.0-1.1) Eosinophils # (Auto) 1.0x10^3/uL (0.0-0.7) 1.5x10^3/uL (0.0-0.7) Basophils # (Auto) 0.1x10^3/uL (0.0-0.2) 0.1x10^3/uL (0.0-0.2) Sodium Level 142mmol/L (136-145) 143mmol/L (136-145) Potassium Level 3.7mmol/L (3.5-5.1) 4.1mmol/L (3.5-5.1) Chloride Level 103mmol/L (98-107) 105mmol/L (98-107) Carbon Dioxide Level 34mmol/L (21-32) 34mmol/L (21-32) Anion Gap 5 (6-14) 4 (6-14) Blood Urea Nitrogen 25mg/dL (8-26) 22mg/dL (8-26) Creatinine 0.8mg/dL (0.7-1.3) 0.7mg/dL (0.7-1.3) Estimated GFR (Cockcroft-Gault) 94.2 109.9 Glucose Level 132mg/dL (70-99) 109mg/dL (70-99) Calcium Level 8.3mg/dL (8.5-10.1) 8.0mg/dL (8.5-10.1) Phosphorus Level 2.8mg/dL (2.6-4.7) Magnesium Level 2.1mg/dL (1.8-2.4) Segmented Neutrophils % 66% (35-66) Band Neutrophils % 2% (0-9) Lymphocytes % 16% (24-48) Atypical Lymphocytes % (Manual) 1% (0-0) Monocytes % 4% (0-10) Eosinophils % 10% (0-5) Metamyelocytes % 1% (0-0) Toxic Granulation Present Platelet Estimate Adequate (ADEQUATE) Large Platelets Present Laboratory Tests Test 10/12/16 04:20 White Blood Count 12.4x10^3/uL (4.0-11.0) Red Blood Count 3.24x10^6/uL (4.30-5.70) Hemoglobin 9.9g/dL (13.0-17.5) Hematocrit 30.1% (39.0-53.0) Mean Corpuscular Volume 93fL (79-100) Mean Corpuscular Hemoglobin 31pg (25-35) Mean Corpuscular Hemoglobin Concent 33g/dL (31-37) Red Cell Distribution Width 14.1% (11.5-14.5) Platelet Count 221x10^3/uL (140-400) Neutrophils (%) (Auto) 68% (31-73) Lymphocytes (%) (Auto) 12% (24-48) Monocytes (%) (Auto) 7% (0-9) Eosinophils (%) (Auto) 12% (0-3) Basophils (%) (Auto) 1% (0-3) Neutrophils # (Auto) 8.5x10^3uL (1.8-7.7) Lymphocytes # (Auto) 1.4x10^3/uL (1.0-4.8) Monocytes # (Auto) 0.9x10^3/uL (0.0-1.1) Eosinophils # (Auto) 1.5x10^3/uL (0.0-0.7) Basophils # (Auto) 0.1x10^3/uL (0.0-0.2) Segmented Neutrophils % 66% (35-66) Band Neutrophils % 2% (0-9) Lymphocytes % 16% (24-48) Atypical Lymphocytes % (Manual) 1% (0-0) Monocytes % 4% (0-10) Eosinophils % 10% (0-5) Metamyelocytes % 1% (0-0) Toxic Granulation Present Platelet Estimate Adequate (ADEQUATE) Large Platelets Present Sodium Level 143mmol/L (136-145) Potassium Level 4.1mmol/L (3.5-5.1) Chloride Level 105mmol/L (98-107) Carbon Dioxide Level 34mmol/L (21-32) Anion Gap 4 (6-14) Blood Urea Nitrogen 22mg/dL (8-26) Creatinine 0.7mg/dL (0.7-1.3) Estimated GFR (Cockcroft-Gault) 109.9 Glucose Level 109mg/dL (70-99) Calcium Level 8.0mg/dL (8.5-10.1) Medications Active Scripts Medications Dose Route/Sig Days Date Category Isopto Tears (Hypromellose) 15 Ml Drops 15 Ml OP 10/06/16 Reported Oxycodone Hcl 10 Mg Tablet 1 Tab PO QID 10/06/16 Reported Ocuvite Tablet (Vit A,C & E/Lutein/Minerals) 1 Each Tablet 1 Each PO 10/06/16 Reported Dulcolax (Bisacodyl) 10 Mg Supp.rect 10 Mg RC PRN DAILY PRN 10/06/16 Reported Milk Of Magnesia (Magnesium Hydroxide) 400 Mg/5 Ml Oral.susp 400 Mg PO 10/06/16 Reported Simvastatin 20 Mg Tablet 1 Tab PO QHS 10/06/16 Reported Refresh Optive Eye Drops (Carboxymethylcellulos/Glycerin) 15 Ml Drops 1 Drop EACHEYE BID 10/06/16 Reported Tamsulosin Hcl 0.4 Mg Cap.er.24h 1 Cap PO DAILY 10/06/16 Reported Potassium Chloride Oral Liquid (Potassium Chloride) 20 Meq/15 Ml Liquid 10 Meq PEG DAILY 10/06/16 Reported Aspir 81 (Aspirin) 81 Mg Tablet.dr 1 Tab PO DAILY 10/06/16 Reported Furosemide 40 Mg Tablet 1 Tab PO DAILY 10/06/16 Reported Meloxicam 7.5 Mg Tablet 1 Tab PO DAILY 10/06/16 Reported Trazodone Hcl 50 Mg Tablet 1 Tab PO QHS 10/06/16 Reported Mucinex (Guaifenesin) 600 Mg Tablet.er 600 Mg PO 10/06/16 Reported Impression . 1. Acute hypoxic respiratory failure, sec to Pneumonia 2. Questionable mild chronic obstructive pulmonary disease 3. Mild hyponatremia. Could be dilutional. 4. Abnormal chest x-ray with mild cardiomegaly and volume loss, left lower lobe. 5. History of coronary artery disease. 6. History of chronic percutaneous endoscopic gastrostomy tube. He uses enteral nutrition as well as oral nutrition. 7. Leukocytosis,/ fever, improved Plan . 1. We will gradually wean the FiO2. 2. Ct chest with mild basal atelectasis 3. Continue broad-spectrum antibiotics per ID 4. Follow chest x-ray.10/08 with improving LLL volume loss 5. Nebulizer treatments as scheduled. 6. ct chest,abd/pelvis report reviewed. Pneumoperitoneum ? due to PEG, surgery following. d/w MOMO Hummel MD Oct 12, 2016 15:58
--- NOTE | 2016-10-12 17:28 | RAD ---
Left elbow, 3 views, 10/12/2016: History: Gout There is streaky subcutaneous edema about the elbow. There is prominent soft tissue swelling posteriorly. There are several small foci of medium density in the soft tissues raising the possibility of gouty tophi. No definite underlying bony erosion is seen. No fracture or dislocation is evident. No large joint effusion is identified. IMPRESSION: 1. No acute bony abnormality is detected. 2. Soft tissue swelling with small radiopacities in the soft tissues posteriorly likely related to the given history of gout.
[2016-10-12 19:00] VITALS: BP 125/59
[2016-10-12] MEDS: SIMVASTATIN 20 MG TABLET PO SCH (20:38)
--- NOTE | 2016-10-12 22:01 | PDOC2 ---
CONSULT Date of Consult Date of Consult DATE: 10/12/16 TIME: 21:58 Reason for Consult Reason for Consult: left elbow pain and swelling, gout Identification/Chief Complaint Chief Complaint left elbow pain and swelling, history of gout Source Source: Chart review History of Present Illness Reason for Visit: The patient is a 76 year old male with multiple medical problems and history of gout. Presents with left olecranon bursae effusion, no randell joint effusion. Increased wbc and fever. ID is unsure where the wbc and fever are coming from, would like for me to take a look at the elbow Past Medical History Cardiovascular: CAD, CHF, HTN, Hyperlipidemia Pulmonary: Pneumonia, Other (lung disease ) CENTRAL NERVOUS SYSTEM: Other (cognitive impairment ) GI: No pertinent hx Psych: Anxiety Musculoskeletal: Osteoarthritis Rheumatologic: No pertinent hx Infectious disease: No pertinent hx ENT: No pertinent hx Renal/: No pertinent hx Endocrine: No pertinent hx Dermatology: No pertinent hx Past Surgical History Past Surgical History: Other (PEG placement ) Family History Family History: Cancer Social History Quit ALCOHOL: none Drugs: None Lives: with Family (presently at [facility] for rehab) Current Problem List Problem List Problems Medical Problems: (1) Altered mental status Status: Acute (2) Hospital acquired PNA Status: Acute Current Medications Current Medications Current Medications Albuterol/ Ipratropium (Duoneb) 3 ml 1X ONCE NEB Last administered on 22:21; Start 10/05/16 at 22:15; Stop 10/05/16 at 22:50; Status DC Ondansetron HCl 4 mg 4 mg PRN Q8HRS PRN IV NAUSEA/VOMITING; Start 10/05/16 at 23 :00; Stop 10/06/16 at 22:59; Status DC Sodium Chloride (Iv Sodium Chloride 0.9% 1000ml Bag) 1,000 ml @ 100 mls/hr Q10H IV Last administered on 10/06/16 18:59; Start 10/05/16 at 22:59; Stop at 22:58; Status DC Albuterol/ Ipratropium 3 ml 3 ml RTQID NEB Last administered on 10/07/16 07:47 ; Start 10/06/16 at 08:00; Stop 10/07/16 at 07:59; Status DC Ceftriaxone Sodium 1 gm/ Sodium Chloride 50 ml @ 100 mls/hr Q24H IV ; Start 10/06/16 at 22:00; Stop 10/06/16 at 22:00; Status DC Levofloxacin/ Dextrose (LEVAQUIN 750mg PREMIX) 150 ml @ 100 mls/hr 1X ONCE IV Last administered on 10/06/16 01:05; Start 10/05/16 at 23:30; Stop 10/06/16 at 00:59; Status DC Vancomycin HCl 1 each 1 each PRN DAILY PRN MC SEE COMMENTS Last administered on 10/07/16 14:14; Start 10/05/16 at 23:00; Stop 10/08/16 at 18:52; Status DC Ceftriaxone Sodium 50 ml @ 100 mls/hr 1X ONCE IV Last administered on 01:05; Start 10/05/16 at 23:30; Stop 10/05/16 at 23:59; Status DC Vancomycin HCl 2 gm/Sodium Chloride 500 ml @ 250 mls/hr 1X ONCE IV Last administered on 10/05/16 23:26; Start 10/06/16 at 00:00; Stop 10/06/16 at 01:59; Status DC Vancomycin HCl/ Sodium Chloride (Iv Sodium Chloride 0.9% 250ml) 250 ml @ 167 mls/hr Q12H IV Last administered on 10/08/16 13:20; Start 10/06/16 at 12:00; Stop 10/08/16 at 18:52; Status DC Vancomycin HCl 1 each 1 each 1X ONCE MC ; Start 10/07/16 at 11:30; Stop 10/07/16 at 11:31; Status DC Piperacillin Sod/ Tazobactam Sod/ Sodium Chloride (Zosyn/Iv Sodium Chloride 0.9 % 50ml) 50 ml @ 100 mls/hr Q6HRS IV Last administered on 10/06/16 11:56; Start 10/06/16 at 11:00; Stop 10/06/16 at 15:24; Status DC Piperacillin Sod/ Tazobactam Sod (Zosyn Per Pharmacy) 1 each PRN DAILY PRN MC SEE COMMENTS; Start 10/06/16 at 10:15 Aspirin (Ecotrin) 81 mg DAILY PO ; Start 10/06/16 at 11:30; Stop 10/06/16 at 11:30 ; Status DC Bisacodyl (Dulcolax Supp) 10 mg PRN DAILY PRN RC CONSTIPATION; Start 10/06/16 at 10:15 Furosemide (Lasix) 40 mg DAILY PO Last administered on 10/12/16 07:53; Start 10/06/16 at 11:30 Guaifenesin (Mucinex) 600 mg BID PO ; Start 10/06/16 at 11:30; Stop 10/06/16 at 11 :30; Status DC Potassium Chloride (KCl Oral Soln) 10 meq DAILY PEG Last administered on 07:52; Start 10/06/16 at 11:30 Simvastatin (Zocor) 20 mg QHS PO Last administered on 10/12/16 20:38; Start at 21:00 Tamsulosin HCl (Flomax) 0.4 mg DAILY PO Last administered on 10/07/16 08:58; Start 10/06/16 at 11:30; Stop 10/08/16 at 10:18; Status DC Multivitamins/ Minerals (Ocuvite Lutein) 1 cap DAILY PO Last administered on 07:53; Start 10/06/16 at 11:00 Artificial Tears (Artificial Tears) 1 drop PRN BID PRN OU DRY EYE Last administered on 10/11/16 08:39; Start 10/06/16 at 10:30 Aspirin (Children'S Aspirin) 81 mg DAILYWBKFT PO Last administered on 10/08/16 09:00; Start 10/06/16 at 11:30; Stop 10/08/16 at 11:31; Status DC Guaifenesin (Robitussin) 200 mg QID PO Last administered on 10/12/16 20:38; Start 10/06/16 at 11:30 Furosemide (Lasix) 40 mg 1X ONCE IVP Last administered on 10/06/16 12:01; Start 10/06/16 at 12:00; Stop 10/06/16 at 12:01; Status DC Acetaminophen (Tylenol) 650 mg PRN Q6HRS PRN PEG MILD PAIN / TEMP Last administered on 10/10/16 09:42; Start 10/06/16 at 12:15 Ondansetron HCl (Zofran) 4 mg PRN Q6HRS PRN IV NAUSEA/VOMITING; Start 10/06/16 at 12:15 Enoxaparin Sodium (Lovenox 40mg Syringe) 40 mg Q24H SQ Last administered on 11:22; Start 10/06/16 at 13:00 Nystatin 1 alejandro 1 alejandro BID TP Last administered on 10/12/16 20:39; Start at 14:30 Piperacillin Sod/ Tazobactam Sod/ Sodium Chloride (Zosyn/Iv Sodium Chloride 0.9 % 100ml) 100 ml @ 200 mls/hr Q6HRS IV Last administered on 10/12/16 16:57; Start 10/06/16 at 18:00 Meloxicam (Mobic) 7.5 mg DAILY PO Last administered on 10/12/16 07:54; Start 10/07/16 at 10:00 Acetaminophen/ Hydrocodone Bitart (Lortab 5/325) 1 tab PRN Q4HRS PRN PO MODERATE - SEVERE PAIN Last administered on 10/12/16 07:50; Start 10/07/16 at 10 :45 Furosemide (Lasix) 20 mg 1X ONCE IVP Last administered on 10/07/16 18:24; Start 10/07/16 at 12:00; Stop 10/07/16 at 12:01; Status DC Digoxin 500 mcg 500 mcg 1X ONCE IV Last administered on 10/07/16 22:38; Start 10/07/16 at 22:15; Stop 10/07/16 at 22:17; Status DC Micafungin Sodium/ Dextrose (Mycamine) 100 ml @ 100 mls/hr Q24H IV Last administered on 10/12/16 07:50; Start 10/08/16 at 09:00 Iohexol (Omnipaque 240 Mg/ml) 30 ml 1X ONCE PO Last administered on 10/08/16 11:47; Start 10/08/16 at 09:15; Stop 10/08/16 at 09:18; Status DC Iohexol (Omnipaque 300 Mg/ml) 75 ml 1X ONCE IV Last administered on 10/08/16 11:46; Start 10/08/16 at 09:15; Stop 10/08/16 at 09:18; Status DC Finasteride (Proscar) 5 mg DAILY PO Last administered on 10/12/16 07:53; Start 10/09/16 at 09:00 Methylprednisolone Acetate (Depo-Medrol 40mg Vial) 40 mg 1X ONCE IM ; Start 10/08/16 at 10:45; Stop 10/08/16 at 10:53; Status DC Methylprednisolone Acetate (Depo-Medrol 40mg Vial) 40 mg 1X ONCE IM ; Start 10/08/16 at 10:45; Stop 10/08/16 at 10:53; Status DC Bupivacaine HCl (Sensorcaine-Mpf 0.25%) 10 ml 1X ONCE IJ ; Start 10/08/16 at 10: 45; Stop 10/08/16 at 10:53; Status DC Digoxin (Lanoxin) 125 mcg DAILY PO Last administered on 10/12/16 07:53; Start 10/08/16 at 11:30 Aspirin (Children'S Aspirin) 325 mg DAILYWBKFT PO Last administered on 12:38; Start 10/08/16 at 11:30; Stop 10/08/16 at 13:30; Status DC Lactobacillus Acidophilus (Bacid, Danielle-Bid) 1 tab DAILY PO Last administered on 10/12/16 07:53; Start 10/08/16 at 13:00 Aspirin (Children'S Aspirin) 324 mg DAILYWBKFT PO Last administered on 07:52; Start 10/08/16 at 13:30 Oxycodone/ Acetaminophen (Percocet 10/325) 1 tab PRN Q6HRS PRN PO PAIN Last administered on 10/12/16 15:39; Start 10/09/16 at 10:30 Furosemide (Lasix) 20 mg 1X ONCE IVP Last administered on 10/09/16 16:54; Start 10/09/16 at 15:00; Stop 10/09/16 at 15:01; Status DC Urea (Wallace Lo 40, X-Viate) 1 alejandro DAILY TP Last administered on 10/12/16 07:55; Start 10/09/16 at 18:00 Nystatin 5 ml 5 ml [id number] Last administered on 10/12/16 20:38; Start 06/18 at 13:00 Potassium Chloride (KCl Premix 10meq) 100 ml @ 100 mls/hr Q1H IV Last administered on 10/10/16 17:00; Start 10/10/16 at 14:00; Stop 10/10/16 at 17:59 ; Status DC Vancomycin HCl 1 each 1 each PRN DAILY PRN MC SEE COMMENTS Last administered on 10/12/16 12:27; Start 10/10/16 at 14:45 Vancomycin HCl 2 gm/Sodium Chloride 500 ml @ 250 mls/hr 1X ONCE IV Last administered on 10/10/16 15:30; Start 10/10/16 at 15:30; Stop 10/10/16 at 17:29 ; Status DC Vancomycin HCl/ Sodium Chloride (Iv Sodium Chloride 0.9% 250ml) 250 ml @ 167 mls/hr Q12H IV Last administered on 10/12/16 17:02; Start 10/11/16 at 05:00 Active Scripts Active Reported Isopto Tears (Hypromellose) 15 Ml Drops 15 Ml OP Oxycodone Hcl 10 Mg Tablet 1 Tab PO QID Ocuvite Tablet (Vit A,C & E/Lutein/Minerals) 1 Each Tablet 1 Each PO Dulcolax (Bisacodyl) 10 Mg Supp.rect 10 Mg RC PRN DAILY PRN Milk Of Magnesia (Magnesium Hydroxide) 400 Mg/5 Ml Oral.susp 400 Mg PO Simvastatin 20 Mg Tablet 1 Tab PO QHS Refresh Optive Eye Drops (Carboxymethylcellulos/Glycerin) 15 Ml Drops 1 Drop EACHEYE BID Tamsulosin Hcl 0.4 Mg Cap.er.24h 1 Cap PO DAILY Potassium Chloride Oral Liquid (Potassium Chloride) 20 Meq/15 Ml Liquid 10 Meq PEG DAILY Aspir 81 (Aspirin) 81 Mg Tablet.dr 1 Tab PO DAILY Furosemide 40 Mg Tablet 1 Tab PO DAILY Meloxicam 7.5 Mg Tablet 1 Tab PO DAILY Trazodone Hcl 50 Mg Tablet 1 Tab PO QHS Mucinex (Guaifenesin) 600 Mg Tablet.er 600 Mg PO Allergies Allergies: Coded Allergies: allopurinol (Verified Allergy, Intermediate, 10/05/16) colchicine (Verified Allergy, Intermediate, 10/05/16) ROS Musculoskeletal: Yes Joint Pain, Yes Joint Stiffness, Yes Joint Swelling Physical Exam General: No acute distress MUSCULOSKELETAL: Other (lue olecranon bursae with redness and swelling. warm to the touch. no drainage. patient is in pain when it is touched. ) Vitals VITALS Vital Signs Date Time Temp Pulse Resp B/P Pulse Ox O2 Delivery O2 Flow Rate FiO2 10/12/16 19:54 Nasal Cannula 5.0 10/12/16 19:00 98.5 66 20 125/59 94 98.5 Labs Labs Laboratory Tests Test 10/11/16 04:17 10/12/16 04:20 White Blood Count 10.5x10^3/uL (4.0-11.0) 12.4x10^3/uL (4.0-11.0) Red Blood Count 3.14x10^6/uL (4.30-5.70) 3.24x10^6/uL (4.30-5.70) Hemoglobin 9.6g/dL (13.0-17.5) 9.9g/dL (13.0-17.5) Hematocrit 29.3% (39.0-53.0) 30.1% (39.0-53.0) Mean Corpuscular Volume 94fL (79-100) 93fL (79-100) Mean Corpuscular Hemoglobin 31pg (25-35) 31pg (25-35) Mean Corpuscular Hemoglobin Concent 33g/dL (31-37) 33g/dL (31-37) Red Cell Distribution Width 14.3% (11.5-14.5) 14.1% (11.5-14.5) Platelet Count 209x10^3/uL (140-400) 221x10^3/uL (140-400) Neutrophils (%) (Auto) 72% (31-73) 68% (31-73) Lymphocytes (%) (Auto) 12% (24-48) 12% (24-48) Monocytes (%) (Auto) 6% (0-9) 7% (0-9) Eosinophils (%) (Auto) 9% (0-3) 12% (0-3) Basophils (%) (Auto) 1% (0-3) 1% (0-3) Neutrophils # (Auto) 7.6x10^3uL (1.8-7.7) 8.5x10^3uL (1.8-7.7) Lymphocytes # (Auto) 1.2x10^3/uL (1.0-4.8) 1.4x10^3/uL (1.0-4.8) Monocytes # (Auto) 0.6x10^3/uL (0.0-1.1) 0.9x10^3/uL (0.0-1.1) Eosinophils # (Auto) 1.0x10^3/uL (0.0-0.7) 1.5x10^3/uL (0.0-0.7) Basophils # (Auto) 0.1x10^3/uL (0.0-0.2) 0.1x10^3/uL (0.0-0.2) Sodium Level 142mmol/L (136-145) 143mmol/L (136-145) Potassium Level 3.7mmol/L (3.5-5.1) 4.1mmol/L (3.5-5.1) Chloride Level 103mmol/L (98-107) 105mmol/L (98-107) Carbon Dioxide Level 34mmol/L (21-32) 34mmol/L (21-32) Anion Gap 5 (6-14) 4 (6-14) Blood Urea Nitrogen 25mg/dL (8-26) 22mg/dL (8-26) Creatinine 0.8mg/dL (0.7-1.3) 0.7mg/dL (0.7-1.3) Estimated GFR (Cockcroft-Gault) 94.2 109.9 Glucose Level 132mg/dL (70-99) 109mg/dL (70-99) Calcium Level 8.3mg/dL (8.5-10.1) 8.0mg/dL (8.5-10.1) Phosphorus Level 2.8mg/dL (2.6-4.7) Magnesium Level 2.1mg/dL (1.8-2.4) Segmented Neutrophils % 66% (35-66) Band Neutrophils % 2% (0-9) Lymphocytes % 16% (24-48) Atypical Lymphocytes % (Manual) 1% (0-0) Monocytes % 4% (0-10) Eosinophils % 10% (0-5) Metamyelocytes % 1% (0-0) Toxic Granulation Present Platelet Estimate Adequate (ADEQUATE) Large Platelets Present Laboratory Tests Test 10/12/16 04:20 White Blood Count 12.4x10^3/uL (4.0-11.0) Red Blood Count 3.24x10^6/uL (4.30-5.70) Hemoglobin 9.9g/dL (13.0-17.5) Hematocrit 30.1% (39.0-53.0) Mean Corpuscular Volume 93fL (79-100) Mean Corpuscular Hemoglobin 31pg (25-35) Mean Corpuscular Hemoglobin Concent 33g/dL (31-37) Red Cell Distribution Width 14.1% (11.5-14.5) Platelet Count 221x10^3/uL (140-400) Neutrophils (%) (Auto) 68% (31-73) Lymphocytes (%) (Auto) 12% (24-48) Monocytes (%) (Auto) 7% (0-9) Eosinophils (%) (Auto) 12% (0-3) Basophils (%) (Auto) 1% (0-3) Neutrophils # (Auto) 8.5x10^3uL (1.8-7.7) Lymphocytes # (Auto) 1.4x10^3/uL (1.0-4.8) Monocytes # (Auto) 0.9x10^3/uL (0.0-1.1) Eosinophils # (Auto) 1.5x10^3/uL (0.0-0.7) Basophils # (Auto) 0.1x10^3/uL (0.0-0.2) Segmented Neutrophils % 66% (35-66) Band Neutrophils % 2% (0-9) Lymphocytes % 16% (24-48) Atypical Lymphocytes % (Manual) 1% (0-0) Monocytes % 4% (0-10) Eosinophils % 10% (0-5) Metamyelocytes % 1% (0-0) Toxic Granulation Present Platelet Estimate Adequate (ADEQUATE) Large Platelets Present Sodium Level 143mmol/L (136-145) Potassium Level 4.1mmol/L (3.5-5.1) Chloride Level 105mmol/L (98-107) Carbon Dioxide Level 34mmol/L (21-32) Anion Gap 4 (6-14) Blood Urea Nitrogen 22mg/dL (8-26) Creatinine 0.7mg/dL (0.7-1.3) Estimated GFR (Cockcroft-Gault) 109.9 Glucose Level 109mg/dL (70-99) Calcium Level 8.0mg/dL (8.5-10.1) Images Images Xrays and MRI of left elbow reviewed, no joint effusion or concern for septic arthritis. Degeneration at the elbow joint, superficial soft tissue effusion with gouty tophi present. 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 due to his increased wbc and fever we will take him today for I&D possible packing versus wound vac placement. Discussed with ID and his daughter, they agree with the plan. SHEYLA BAJWA MD Oct 12, 2016 22:01
[2016-10-12 23:00] VITALS: BP 126/56
[2016-10-13 03:03] VITALS: BP 109/58
[2016-10-13] MEDS: VANCOMYCIN 1.25 GM in IV NORMAL SALINE 250ML 250 ML IV SCH ×2 (04:12→17:43)
[2016-10-13 05:13] LABS: BASO # 0.1 x10^3/uL (0.0-0.2); BASO % 1 % (0-3); EOS % 11 % (0-3); HEMATOCRIT 29.5 % (39.0-53.0); HEMOGLOBIN 9.6 g/dL (13.0-17.5); LYMPH # 1.5 x10^3/uL (1.0-4.8); LYMPH % 12 % (24-48); MEAN CORPUSCULAR HEMOGLOBIN 30 pg (25-35); MEAN CORPUSCULAR HGB CONC 33 g/dL (31-37); MEAN CORPUSCULAR VOLUME 93 fL (79-100); MONO % 7 % (0-9); NEUT % 69 % (31-73); PLATELET COUNT 231 x10^3/uL (140-400); RED BLOOD COUNT 3.18 x10^6/uL (4.30-5.70); RED CELL DISTRIBUTION WIDTH 14.2 % (11.5-14.5); WHITE BLOOD COUNT 12.1 x10^3/uL (4.0-11.0)
[2016-10-13 05:36] LABS: CALCIUM 8.4 mg/dL (8.5-10.1); CREATININE 0.7 mg/dL (0.7-1.3); GFR 109.9; POTASSIUM 4.2 mmol/L (3.5-5.1)
[2016-10-13] MEDS: PIPERACILLIN/TAZOBACTAM 4.5 GM in IV NORMAL SALINE 100ML 100 ML IV SCH ×3 (05:43→20:15)
[2016-10-13 07:00] VITALS: BP 141/44
[2016-10-13] MEDS: ASPIRIN 81 MG TAB.CHEW PO SCH (08:00)
--- NOTE | 2016-10-13 08:34 | RAD ---
PROCEDURE MRI left elbow without contrast. HISTORY Left elbow redness and swelling. TECHNIQUE MRI of the left elbow was performed without intravenous contrast. COMPARISON Plain radiographs of the same date. FINDINGS The olecranon bursa is distended to 2.2 centimeters in thickness consistent with olecranon bursitis. The distal triceps tendon is thickened consistent with tendinopathy. There is no clear tear. There is a T1 hyperintense focus just posterior to the olecranon in the region of some calcific density on plain radiographs. This may represent tophus. There is no underlying bone marrow edema or clear cortical erosion to indicate osteomyelitis. There is extensive edema within the subacromial subcutaneous tissues. The elbow is flexed, limiting evaluation. There are limitations from motion artifact. The biceps and brachialis tendons are intact. There is no joint effusion. Small osteophytes indicate mild humeroulnar osteoarthritis. Alignment is maintained. There appears to be an intrasubstance tear at the common extensor origin. Mild edema and ossification are noted at the common flexor origin. The collateral ligament complexes are not well demonstrated in the setting of motion/flexion, but there is no clear tear. IMPRESSION - Olecranon bursitis. What appears represent tophus on plain radiographs suggests crystalline arthropathy, but correlate to exclude superimposed infection. Extensive surrounding soft tissue edema versus cellulitis. - At least moderate insertional triceps tendinopathy. No clear tear. - Suspected intrasubstance tear at the common extensor origin. Mild medial epicondylitis. - Mild tricompartmental osteoarthritis. Electronically signed by: Bartolo Murguia (Oct 13, 2016 08:32:41)
[2016-10-13] MEDS: MELOXICAM 7.5 MG TABLET PO SCH (09:00)
[2016-10-13] MEDS: POTASSIUM CHLORIDE 20 MEQ/15 ML ORAL LIQUID. PEG SCH (09:00)
[2016-10-13] MEDS: FINASTERIDE 5 MG TABLET PO SCH (09:00)
[2016-10-13] MEDS: UREA 40% TOPICAL CREAM 28.3GM TUBE. TP SCH (09:00)
[2016-10-13] MEDS: MICAFUNGIN 100 MG in IV DEXTROSE 5% 100 ML IV SCH ×2 (09:00→09:14)
[2016-10-13] MEDS: NYSTATIN 100,000 UNITS/ML 5 ML ORAL.SUSP. SWSW SCH ×3 (09:00→17:00)
[2016-10-13] MEDS: DIGOXIN 125 MCG TABLET PO SCH (09:00)
[2016-10-13] MEDS: GUAIFENESIN 200 MG/10 ML LIQUID. PO SCH ×3 (09:00→17:00)
[2016-10-13] MEDS: FUROSEMIDE 40 MG TABLET PO SCH (09:00)
[2016-10-13] MEDS: MULTIVITAMIN EYE FORMULA CAPSULE. PO SCH (09:00)
[2016-10-13] MEDS: LACTOBACILLUS ACIDOPH & BULGAR 1 TABLET. PO SCH (09:00)
[2016-10-13] MEDS: NYSTATIN TOPICAL POWDER 15GM BOTTLE. TP SCH (09:14)
--- NOTE | 2016-10-13 09:32 | PDOC2 ---
GI CONSULT Reason For Consult: PEG HPI: HPI: 76 y/o male admitted 10/05/16 from living facility w/ encephalopathy, pneumonia, fever, and leukocytosis. Has been followed by pulm, neuro, ID, and vascular (re : AAA); is on IV atbx. H/o dysphagia w/ previous PEG placement which he pulled out overnight. H/o cognitive impairment which waxes and wanes per RN. Confused this morning. Tinsley has been placed in PEG site, GI consulted to replace. Prior to admission was apparently using PEG and taking PO nutrition. CAGE TENDER has seen and recommends NPO w/ possible videoswallow in the future. PMH: PMH: from chart - CAD, CHF, HLD, HTN, pneumonia, COPD, cognitive impairment, gout, PEG placement FH: Family History: No pertinent hx Social History: Smoke: Quit ALCOHOL: none Drugs: None ROS: Difficult to obtain. VItals: Vitals: Vital Signs Date Time Temp Pulse Resp B/P Pulse Ox O2 Delivery O2 Flow Rate FiO2 10/13/16 07:00 100.4 80 21 141/44 86 Nasal Cannula 6.0 100.4 Labs: Labs: Laboratory Tests Test 10/13/16 04:10 White Blood Count 12.1x10^3/uL (4.0-11.0) Red Blood Count 3.18x10^6/uL (4.30-5.70) Hemoglobin 9.6g/dL (13.0-17.5) Hematocrit 29.5% (39.0-53.0) Mean Corpuscular Volume 93fL (79-100) Mean Corpuscular Hemoglobin 30pg (25-35) Mean Corpuscular Hemoglobin Concent 33g/dL (31-37) Red Cell Distribution Width 14.2% (11.5-14.5) Platelet Count 231x10^3/uL (140-400) Neutrophils (%) (Auto) 69% (31-73) Lymphocytes (%) (Auto) 12% (24-48) Monocytes (%) (Auto) 7% (0-9) Eosinophils (%) (Auto) 11% (0-3) Basophils (%) (Auto) 1% (0-3) Neutrophils # (Auto) 8.3x10^3uL (1.8-7.7) Lymphocytes # (Auto) 1.5x10^3/uL (1.0-4.8) Monocytes # (Auto) 0.9x10^3/uL (0.0-1.1) Eosinophils # (Auto) 1.3x10^3/uL (0.0-0.7) Basophils # (Auto) 0.1x10^3/uL (0.0-0.2) Sodium Level 140mmol/L (136-145) Potassium Level 4.2mmol/L (3.5-5.1) Chloride Level 104mmol/L (98-107) Carbon Dioxide Level 36mmol/L (21-32) Anion Gap 0 (6-14) Blood Urea Nitrogen 17mg/dL (8-26) Creatinine 0.7mg/dL (0.7-1.3) Estimated GFR (Cockcroft-Gault) 109.9 Glucose Level 89mg/dL (70-99) Calcium Level 8.4mg/dL (8.5-10.1) Allergies: Coded Allergies: allopurinol (Verified Allergy, Intermediate, 10/05/16) colchicine (Verified Allergy, Intermediate, 10/05/16) Medications: Please see EMR. Imaging: Imaging: Head CT 10/06/16 Impression: No acute intracranial abnormality is seen. Brain MRI 10/07/16 IMPRESSION 1. No acute intracranial finding. 2. Scattered areas of signal change throughout the cerebral white matter and jero, a nonspecific finding likely due to chronic small vessel disease. 3. 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 4. Cerebral volume loss. 5. Sphenoid sinus disease. CT A/P 10/08/16 IMPRESSION: 1. There is a tiny amount of pneumoperitoneum under the left hemidiaphragm. This may be secondary to instrumentation such as the gastrostomy catheter. No other site of perforation is identified and no inflammatory changes seen. Correlate clinically. 2. Very large right inguinal hernia containing the cecum and terminal ileum. No obstruction. 3. 4.1 cm infrarenal abdominal aortic aneurysm. Ongoing follow-up is recommended. 4. Bilateral lower lobe atelectasis. Superimposed pneumonia cannot be excluded. There is only trace pleural fluid. 5. Mild cardiomegaly. 6. A 3.5 right upper lobe nodule is likely benign but this small size. A follow- up could be considered in one year if there are strong risk factors. 7. A 1 cm indeterminate left adrenal nodule is likely a benign adenoma in the absence of known malignancy. 8. Fluid throughout the colon. Correlate for diarrhea. Left Ankle X-ray 10/08/16 IMPRESSION: 1. No fracture. 2. Moderate subtalar and tarsometatarsal osteoarthritis. Mild ankle Upper Extrem MRI 10/12/16 IMPRESSION - Olecranon bursitis. What appears represent tophus on plain radiographs suggests crystalline arthropathy, but correlate to exclude superimposed infection. Extensive surrounding soft tissue edema versus cellulitis. - At least moderate insertional triceps tendinopathy. No clear tear. - Suspected intrasubstance tear at the common extensor origin. Mild medial epicondylitis. - Mild tricompartmental osteoarthritis. Left Elbow X-ray 10/12/16 IMPRESSION: 1. No acute bony abnormality is detected. 2. Soft tissue swelling with small radiopacities in the soft tissues posteriorly likely related to the given history of gout. PE: GEN: NAD HEENT: Atraumatic, PERRL LUNGS: decreased/poor effort anteriorly - staff attempting to place nasal cannula HEART: RRR ABD: NABS, S/ND/NT, Tinsley placed in PEG site NEURO/PSYCH: confused A/P: A/P: PEG tube displacement -unclear when placed, prior to admission nutrition through PEG and PO -CAGE TENDER recs NPO Encephalopathy, pneumonia, leukocytosis -sat 95% on RA -on IV atbx -- D/w Dr. Turcios, GI lab, RN - tentatively plan for EGD w/ placement of original PEG this afternoon if family consents. RADHA LUNDBERG Oct 13, 2016 09:32
--- NOTE | 2016-10-13 10:26 | PDOC ---
PROGRESS NOTES Subjective Subjective He pulled doff denise tube and IV last night. 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 Assessment Assessment Problems Medical Problems: (1) Altered mental status Status: Acute (2) Hospital acquired PNA Status: Acute Plan Plan of Care To continue present care as tolerated. Comment Review of Relevant I have reviewed the following items cassidy (where applicable) has been applied. Labs Laboratory Tests Test 10/12/16 04:20 10/13/16 04:10 White Blood Count 12.4x10^3/uL (4.0-11.0) 12.1x10^3/uL (4.0-11.0) Red Blood Count 3.24x10^6/uL (4.30-5.70) 3.18x10^6/uL (4.30-5.70) Hemoglobin 9.9g/dL (13.0-17.5) 9.6g/dL (13.0-17.5) Hematocrit 30.1% (39.0-53.0) 29.5% (39.0-53.0) Mean Corpuscular Volume 93fL (79-100) 93fL (79-100) Mean Corpuscular Hemoglobin 31pg (25-35) 30pg (25-35) Mean Corpuscular Hemoglobin Concent 33g/dL (31-37) 33g/dL (31-37) Red Cell Distribution Width 14.1% (11.5-14.5) 14.2% (11.5-14.5) Platelet Count 221x10^3/uL (140-400) 231x10^3/uL (140-400) Neutrophils (%) (Auto) 68% (31-73) 69% (31-73) Lymphocytes (%) (Auto) 12% (24-48) 12% (24-48) Monocytes (%) (Auto) 7% (0-9) 7% (0-9) Eosinophils (%) (Auto) 12% (0-3) 11% (0-3) Basophils (%) (Auto) 1% (0-3) 1% (0-3) Neutrophils # (Auto) 8.5x10^3uL (1.8-7.7) 8.3x10^3uL (1.8-7.7) Lymphocytes # (Auto) 1.4x10^3/uL (1.0-4.8) 1.5x10^3/uL (1.0-4.8) Monocytes # (Auto) 0.9x10^3/uL (0.0-1.1) 0.9x10^3/uL (0.0-1.1) Eosinophils # (Auto) 1.5x10^3/uL (0.0-0.7) 1.3x10^3/uL (0.0-0.7) Basophils # (Auto) 0.1x10^3/uL (0.0-0.2) 0.1x10^3/uL (0.0-0.2) Segmented Neutrophils % 66% (35-66) Band Neutrophils % 2% (0-9) Lymphocytes % 16% (24-48) Atypical Lymphocytes % (Manual) 1% (0-0) Monocytes % 4% (0-10) Eosinophils % 10% (0-5) Metamyelocytes % 1% (0-0) Toxic Granulation Present Platelet Estimate Adequate (ADEQUATE) Large Platelets Present Sodium Level 143mmol/L (136-145) 140mmol/L (136-145) Potassium Level 4.1mmol/L (3.5-5.1) 4.2mmol/L (3.5-5.1) Chloride Level 105mmol/L (98-107) 104mmol/L (98-107) Carbon Dioxide Level 34mmol/L (21-32) 36mmol/L (21-32) Anion Gap 4 (6-14) 0 (6-14) Blood Urea Nitrogen 22mg/dL (8-26) 17mg/dL (8-26) Creatinine 0.7mg/dL (0.7-1.3) 0.7mg/dL (0.7-1.3) Estimated GFR (Cockcroft-Gault) 109.9 109.9 Glucose Level 109mg/dL (70-99) 89mg/dL (70-99) Calcium Level 8.0mg/dL (8.5-10.1) 8.4mg/dL (8.5-10.1) Laboratory Tests Test 10/13/16 04:10 White Blood Count 12.1x10^3/uL (4.0-11.0) Red Blood Count 3.18x10^6/uL (4.30-5.70) Hemoglobin 9.6g/dL (13.0-17.5) Hematocrit 29.5% (39.0-53.0) Mean Corpuscular Volume 93fL (79-100) Mean Corpuscular Hemoglobin 30pg (25-35) Mean Corpuscular Hemoglobin Concent 33g/dL (31-37) Red Cell Distribution Width 14.2% (11.5-14.5) Platelet Count 231x10^3/uL (140-400) Neutrophils (%) (Auto) 69% (31-73) Lymphocytes (%) (Auto) 12% (24-48) Monocytes (%) (Auto) 7% (0-9) Eosinophils (%) (Auto) 11% (0-3) Basophils (%) (Auto) 1% (0-3) Neutrophils # (Auto) 8.3x10^3uL (1.8-7.7) Lymphocytes # (Auto) 1.5x10^3/uL (1.0-4.8) Monocytes # (Auto) 0.9x10^3/uL (0.0-1.1) Eosinophils # (Auto) 1.3x10^3/uL (0.0-0.7) Basophils # (Auto) 0.1x10^3/uL (0.0-0.2) Sodium Level 140mmol/L (136-145) Potassium Level 4.2mmol/L (3.5-5.1) Chloride Level 104mmol/L (98-107) Carbon Dioxide Level 36mmol/L (21-32) Anion Gap 0 (6-14) Blood Urea Nitrogen 17mg/dL (8-26) Creatinine 0.7mg/dL (0.7-1.3) Estimated GFR (Cockcroft-Gault) 109.9 Glucose Level 89mg/dL (70-99) Calcium Level 8.4mg/dL (8.5-10.1) Microbiology 10/10/16 Blood Culture - Preliminary, Resulted NO GROWTH AFTER 2 DAYS 10/05/16 Urine Culture - Final, Complete 10/05/16 Urine Culture Result 1 (JABARI) - Final, Complete Medications Current Medications Albuterol/ Ipratropium (Duoneb) 3 ml 1X ONCE NEB Last administered on 22:21; Start 10/05/16 at 22:15; Stop 10/05/16 at 22:50; Status DC Ondansetron HCl 4 mg 4 mg PRN Q8HRS PRN IV NAUSEA/VOMITING; Start 10/05/16 at 23 :00; Stop 10/06/16 at 22:59; Status DC Sodium Chloride (Iv Sodium Chloride 0.9% 1000ml Bag) 1,000 ml @ 100 mls/hr Q10H IV Last administered on 10/06/16 18:59; Start 10/05/16 at 22:59; Stop at 22:58; Status DC Albuterol/ Ipratropium 3 ml 3 ml RTQID NEB Last administered on 10/07/16 07:47 ; Start 10/06/16 at 08:00; Stop 10/07/16 at 07:59; Status DC Ceftriaxone Sodium 1 gm/ Sodium Chloride 50 ml @ 100 mls/hr Q24H IV ; Start 10/06/16 at 22:00; Stop 10/06/16 at 22:00; Status DC Levofloxacin/ Dextrose (LEVAQUIN 750mg PREMIX) 150 ml @ 100 mls/hr 1X ONCE IV Last administered on 10/06/16 01:05; Start 10/05/16 at 23:30; Stop 10/06/16 at 00:59; Status DC Vancomycin HCl 1 each 1 each PRN DAILY PRN MC SEE COMMENTS Last administered on 10/07/16 14:14; Start 10/05/16 at 23:00; Stop 10/08/16 at 18:52; Status DC Ceftriaxone Sodium 50 ml @ 100 mls/hr 1X ONCE IV Last administered on 01:05; Start 10/05/16 at 23:30; Stop 10/05/16 at 23:59; Status DC Vancomycin HCl 2 gm/Sodium Chloride 500 ml @ 250 mls/hr 1X ONCE IV Last administered on 10/05/16 23:26; Start 10/06/16 at 00:00; Stop 10/06/16 at 01:59; Status DC Vancomycin HCl/ Sodium Chloride (Iv Sodium Chloride 0.9% 250ml) 250 ml @ 167 mls/hr Q12H IV Last administered on 10/08/16 13:20; Start 10/06/16 at 12:00; Stop 10/08/16 at 18:52; Status DC Vancomycin HCl 1 each 1 each 1X ONCE MC ; Start 10/07/16 at 11:30; Stop 10/07/16 at 11:31; Status DC Piperacillin Sod/ Tazobactam Sod/ Sodium Chloride (Zosyn/Iv Sodium Chloride 0.9 % 50ml) 50 ml @ 100 mls/hr Q6HRS IV Last administered on 10/06/16 11:56; Start 10/06/16 at 11:00; Stop 10/06/16 at 15:24; Status DC Piperacillin Sod/ Tazobactam Sod (Zosyn Per Pharmacy) 1 each PRN DAILY PRN MC SEE COMMENTS; Start 10/06/16 at 10:15 Aspirin (Ecotrin) 81 mg DAILY PO ; Start 10/06/16 at 11:30; Stop 10/06/16 at 11:30 ; Status DC Bisacodyl (Dulcolax Supp) 10 mg PRN DAILY PRN RC CONSTIPATION; Start 10/06/16 at 10:15 Furosemide (Lasix) 40 mg DAILY PO Last administered on 10/12/16 07:53; Start 10/06/16 at 11:30 Guaifenesin (Mucinex) 600 mg BID PO ; Start 10/06/16 at 11:30; Stop 10/06/16 at 11 :30; Status DC Potassium Chloride (KCl Oral Soln) 10 meq DAILY PEG Last administered on 07:52; Start 10/06/16 at 11:30 Simvastatin (Zocor) 20 mg QHS PO Last administered on 10/12/16 20:38; Start at 21:00 Tamsulosin HCl (Flomax) 0.4 mg DAILY PO Last administered on 10/07/16 08:58; Start 10/06/16 at 11:30; Stop 10/08/16 at 10:18; Status DC Multivitamins/ Minerals (Ocuvite Lutein) 1 cap DAILY PO Last administered on 07:53; Start 10/06/16 at 11:00 Artificial Tears (Artificial Tears) 1 drop PRN BID PRN OU DRY EYE Last administered on 10/11/16 08:39; Start 10/06/16 at 10:30 Aspirin (Children'S Aspirin) 81 mg DAILYWBKFT PO Last administered on 10/08/16 09:00; Start 10/06/16 at 11:30; Stop 10/08/16 at 11:31; Status DC Guaifenesin (Robitussin) 200 mg QID PO Last administered on 10/12/16 20:38; Start 10/06/16 at 11:30 Furosemide (Lasix) 40 mg 1X ONCE IVP Last administered on 10/06/16 12:01; Start 10/06/16 at 12:00; Stop 10/06/16 at 12:01; Status DC Acetaminophen (Tylenol) 650 mg PRN Q6HRS PRN PEG MILD PAIN / TEMP Last administered on 10/10/16 09:42; Start 10/06/16 at 12:15 Ondansetron HCl (Zofran) 4 mg PRN Q6HRS PRN IV NAUSEA/VOMITING; Start 10/06/16 at 12:15 Enoxaparin Sodium (Lovenox 40mg Syringe) 40 mg Q24H SQ Last administered on 11:22; Start 10/06/16 at 13:00 Nystatin 1 alejandro 1 alejandro BID TP Last administered on 10/13/16 09:14; Start at 14:30 Piperacillin Sod/ Tazobactam Sod/ Sodium Chloride (Zosyn/Iv Sodium Chloride 0.9 % 100ml) 100 ml @ 200 mls/hr Q6HRS IV Last administered on 10/13/16 05:43; Start 10/06/16 at 18:00 Meloxicam (Mobic) 7.5 mg DAILY PO Last administered on 10/12/16 07:54; Start 10/07/16 at 10:00 Acetaminophen/ Hydrocodone Bitart (Lortab 5/325) 1 tab PRN Q4HRS PRN PO MODERATE - SEVERE PAIN Last administered on 10/12/16 07:50; Start 10/07/16 at 10 :45 Furosemide (Lasix) 20 mg 1X ONCE IVP Last administered on 10/07/16 18:24; Start 10/07/16 at 12:00; Stop 10/07/16 at 12:01; Status DC Digoxin 500 mcg 500 mcg 1X ONCE IV Last administered on 10/07/16 22:38; Start 10/07/16 at 22:15; Stop 10/07/16 at 22:17; Status DC Micafungin Sodium/ Dextrose (Mycamine) 100 ml @ 100 mls/hr Q24H IV Last administered on 10/12/16 07:50; Start 10/08/16 at 09:00 Iohexol (Omnipaque 240 Mg/ml) 30 ml 1X ONCE PO Last administered on 10/08/16 11:47; Start 10/08/16 at 09:15; Stop 10/08/16 at 09:18; Status DC Iohexol (Omnipaque 300 Mg/ml) 75 ml 1X ONCE IV Last administered on 10/08/16 11:46; Start 10/08/16 at 09:15; Stop 10/08/16 at 09:18; Status DC Finasteride (Proscar) 5 mg DAILY PO Last administered on 10/12/16 07:53; Start 10/09/16 at 09:00 Methylprednisolone Acetate (Depo-Medrol 40mg Vial) 40 mg 1X ONCE IM ; Start 10/08/16 at 10:45; Stop 10/08/16 at 10:53; Status DC Methylprednisolone Acetate (Depo-Medrol 40mg Vial) 40 mg 1X ONCE IM ; Start 10/08/16 at 10:45; Stop 10/08/16 at 10:53; Status DC Bupivacaine HCl (Sensorcaine-Mpf 0.25%) 10 ml 1X ONCE IJ ; Start 10/08/16 at 10: 45; Stop 10/08/16 at 10:53; Status DC Digoxin (Lanoxin) 125 mcg DAILY PO Last administered on 10/12/16 07:53; Start 10/08/16 at 11:30 Aspirin (Children'S Aspirin) 325 mg DAILYWBKFT PO Last administered on 12:38; Start 10/08/16 at 11:30; Stop 10/08/16 at 13:30; Status DC Lactobacillus Acidophilus (Bacid, Danielle-Bid) 1 tab DAILY PO Last administered on 10/12/16 07:53; Start 10/08/16 at 13:00 Aspirin (Children'S Aspirin) 324 mg DAILYWBKFT PO Last administered on 07:52; Start 10/08/16 at 13:30 Oxycodone/ Acetaminophen (Percocet 10/325) 1 tab PRN Q6HRS PRN PO PAIN Last administered on 10/12/16 15:39; Start 10/09/16 at 10:30 Furosemide (Lasix) 20 mg 1X ONCE IVP Last administered on 10/09/16 16:54; Start 10/09/16 at 15:00; Stop 10/09/16 at 15:01; Status DC Urea (Debary Lo 40, X-Viate) 1 alejandro DAILY TP Last administered on 10/12/16 07:55; Start 10/09/16 at 18:00 Nystatin 5 ml 5 ml [id number] Last administered on 10/12/16 20:38; Start 06/18 at 13:00 Potassium Chloride (KCl Premix 10meq) 100 ml @ 100 mls/hr Q1H IV Last administered on 10/10/16 17:00; Start 10/10/16 at 14:00; Stop 10/10/16 at 17:59 ; Status DC Vancomycin HCl 1 each 1 each PRN DAILY PRN MC SEE COMMENTS Last administered on 10/12/16 12:27; Start 10/10/16 at 14:45 Vancomycin HCl 2 gm/Sodium Chloride 500 ml @ 250 mls/hr 1X ONCE IV Last administered on 10/10/16 15:30; Start 10/10/16 at 15:30; Stop 10/10/16 at 17:29 ; Status DC Vancomycin HCl/ Sodium Chloride (Iv Sodium Chloride 0.9% 250ml) 250 ml @ 167 mls/hr Q12H IV Last administered on 10/13/16 04:12; Start 10/11/16 at 05:00 Active Scripts Active Reported Isopto Tears (Hypromellose) 15 Ml Drops 15 Ml OP Oxycodone Hcl 10 Mg Tablet 1 Tab PO QID Ocuvite Tablet (Vit A,C & E/Lutein/Minerals) 1 Each Tablet 1 Each PO Dulcolax (Bisacodyl) 10 Mg Supp.rect 10 Mg RC PRN DAILY PRN Milk Of Magnesia (Magnesium Hydroxide) 400 Mg/5 Ml Oral.susp 400 Mg PO Simvastatin 20 Mg Tablet 1 Tab PO QHS Refresh Optive Eye Drops (Carboxymethylcellulos/Glycerin) 15 Ml Drops 1 Drop EACHEYE BID Tamsulosin Hcl 0.4 Mg Cap.er.24h 1 Cap PO DAILY Potassium Chloride Oral Liquid (Potassium Chloride) 20 Meq/15 Ml Liquid 10 Meq PEG DAILY Aspir 81 (Aspirin) 81 Mg Tablet.dr 1 Tab PO DAILY Furosemide 40 Mg Tablet 1 Tab PO DAILY Meloxicam 7.5 Mg Tablet 1 Tab PO DAILY Trazodone Hcl 50 Mg Tablet 1 Tab PO QHS Mucinex (Guaifenesin) 600 Mg Tablet.er 600 Mg PO Vitals/I & O Vital Sign - Last 24 Hours 10/12/16 10/12/16 10/12/16 10/12/16 11:00 14:52 15:39 16:31 Temp 98.2 97.5 98.2 97.5 Pulse 66 81 Resp 14 20 20 18 B/P 145/48 138/58 Pulse Ox 98 94 94 94 O2 Delivery Nasal Cannula Nasal Cannula Nasal Cannula Nasal Cannula O2 Flow Rate 5.0 5.0 5.0 5.0 10/12/16 10/12/16 10/12/16 10/13/16 19:00 19:54 23:00 03:03 Temp 98.5 98.3 98.9 98.5 98.3 98.9 Pulse 66 78 78 Resp 20 20 20 B/P 125/59 126/56 109/58 Pulse Ox 94 90 91 O2 Delivery Nasal Cannula Nasal Cannula Nasal Cannula Nasal Cannula O2 Flow Rate 5.0 10/13/16 07:00 Temp 100.4 100.4 Pulse 80 Resp 21 B/P 141/44 Pulse Ox 86 O2 Delivery Nasal Cannula O2 Flow Rate 6.0 Intake and Output 10/12/16 10/12/16 10/13/16 15:00 23:00 07:00 Intake Total 250 ml 450 ml Output Total 1351 ml 1000 ml Balance -1351 ml 250 ml -550 ml RODRIGUE MAYNARD MD Oct 13, 2016 10:26
[2016-10-13 11:00] VITALS: BP 132/79
--- NOTE | 2016-10-13 11:34 | PDOC ---
PROGRESS NOTES Chief Complaint Chief Complaint 1. AMS, metabolic encephalopathy likely , 2/2 to 2 or sedative meds in rehab 2. acute resp failure with hypoxia, 2/2 HCAP? 3. sepsis with HCAP? 4. h/o CAD with CABG 5. CHF, ef 50% . 6 htn 7. hld 8 BPH sinclair 9. dysphasia with PEG recently 10. baseline mild dementia 11. recent hallucination with PNA 12. h/o CVA wo weakness 13. gout, OA 14. RAPID Afib, new 15. orthostatic hypotension 16. stable AAA 4CM History of Present Illness History of Present Illness Patient was lying in bed, granddaughter and son was present at bedside at the time of evaluation. Last night pt. pulled his Peg tube out, nurse put the sinclair cath in there, GI consult for Peg replacement was requested and plan was discussed with GI, pt. was in no acute distress, answered no questions, was confused, had no cough, no SOB. Plan of care was discussed with family as well. Vitals Vitals Vital Signs Date Time Temp Pulse Resp B/P Pulse Ox O2 Delivery O2 Flow Rate FiO2 10/13/16 07:00 100.4 80 21 141/44 86 Nasal Cannula 6.0 100.4 Physical Exam General: Alert, No acute distress Heart: Regular rate, Normal S1, Normal S2 Lungs: Other (rhonchi) Abdomen: Soft, No tenderness, Other (ND, sinclair cath was placed in as Peg was pulled out, air in the peritoneum noticed ) Extremities: No clubbing, No cyanosis Skin: Other (has skin brusies and dressing on right great toe, gouty inflammation on left elbow) Labs LABS Laboratory Tests Test 10/13/16 04:10 White Blood Count 12.1x10^3/uL (4.0-11.0) Red Blood Count 3.18x10^6/uL (4.30-5.70) Hemoglobin 9.6g/dL (13.0-17.5) Hematocrit 29.5% (39.0-53.0) Mean Corpuscular Volume 93fL (79-100) Mean Corpuscular Hemoglobin 30pg (25-35) Mean Corpuscular Hemoglobin Concent 33g/dL (31-37) Red Cell Distribution Width 14.2% (11.5-14.5) Platelet Count 231x10^3/uL (140-400) Neutrophils (%) (Auto) 69% (31-73) Lymphocytes (%) (Auto) 12% (24-48) Monocytes (%) (Auto) 7% (0-9) Eosinophils (%) (Auto) 11% (0-3) Basophils (%) (Auto) 1% (0-3) Neutrophils # (Auto) 8.3x10^3uL (1.8-7.7) Lymphocytes # (Auto) 1.5x10^3/uL (1.0-4.8) Monocytes # (Auto) 0.9x10^3/uL (0.0-1.1) Eosinophils # (Auto) 1.3x10^3/uL (0.0-0.7) Basophils # (Auto) 0.1x10^3/uL (0.0-0.2) Sodium Level 140mmol/L (136-145) Potassium Level 4.2mmol/L (3.5-5.1) Chloride Level 104mmol/L (98-107) Carbon Dioxide Level 36mmol/L (21-32) Anion Gap 0 (6-14) Blood Urea Nitrogen 17mg/dL (8-26) Creatinine 0.7mg/dL (0.7-1.3) Estimated GFR (Cockcroft-Gault) 109.9 Glucose Level 89mg/dL (70-99) Calcium Level 8.4mg/dL (8.5-10.1) Review of Systems Review of Systems Awake, confused, Peg tube pulled out, waiting for Peg replacement, no SOB, no CP , great toe wound dressing was on and clean. Assessment and Plan Assessmemt and Plan Assessment: 1. AMS, metabolic encephalopathy likely , 2/2 to 2 or sedative meds in rehab 2. acute resp failure with hypoxia, 2/2 HCAP? 3. sepsis with HCAP? 4. h/o CAD with CABG 5. CHF, ef 50% . 6 htn 7. hld 8 BPH sinclair 9. dysphasia with PEG recently 10. baseline mild dementia 11. recent hallucination with PNA 12. h/o CVA wo weakness 13. gout, OA 14. RAPID Afib, new 15. orthostatic hypotension 16. stable AAA 4CM Plan: - Waiting for Peg tube replacement today - PICC line ordered - Continue antibiotics per ID recommendations - continue DVT prophylaxis - recheck labs in AM - continue PT/OT - continue BIPAP prn - Appreciate subspecialities inputs and recommendations - D/w RN and family at bed side Problems Medical Problems: (1) Altered mental status Status: Acute (2) Hospital acquired PNA Status: Acute Problems: Comment Review of Relevant I have reviewed the following items cassidy (where applicable) has been applied. Labs Laboratory Tests Test 10/12/16 04:20 10/13/16 04:10 White Blood Count 12.4x10^3/uL (4.0-11.0) 12.1x10^3/uL (4.0-11.0) Red Blood Count 3.24x10^6/uL (4.30-5.70) 3.18x10^6/uL (4.30-5.70) Hemoglobin 9.9g/dL (13.0-17.5) 9.6g/dL (13.0-17.5) Hematocrit 30.1% (39.0-53.0) 29.5% (39.0-53.0) Mean Corpuscular Volume 93fL (79-100) 93fL (79-100) Mean Corpuscular Hemoglobin 31pg (25-35) 30pg (25-35) Mean Corpuscular Hemoglobin Concent 33g/dL (31-37) 33g/dL (31-37) Red Cell Distribution Width 14.1% (11.5-14.5) 14.2% (11.5-14.5) Platelet Count 221x10^3/uL (140-400) 231x10^3/uL (140-400) Neutrophils (%) (Auto) 68% (31-73) 69% (31-73) Lymphocytes (%) (Auto) 12% (24-48) 12% (24-48) Monocytes (%) (Auto) 7% (0-9) 7% (0-9) Eosinophils (%) (Auto) 12% (0-3) 11% (0-3) Basophils (%) (Auto) 1% (0-3) 1% (0-3) Neutrophils # (Auto) 8.5x10^3uL (1.8-7.7) 8.3x10^3uL (1.8-7.7) Lymphocytes # (Auto) 1.4x10^3/uL (1.0-4.8) 1.5x10^3/uL (1.0-4.8) Monocytes # (Auto) 0.9x10^3/uL (0.0-1.1) 0.9x10^3/uL (0.0-1.1) Eosinophils # (Auto) 1.5x10^3/uL (0.0-0.7) 1.3x10^3/uL (0.0-0.7) Basophils # (Auto) 0.1x10^3/uL (0.0-0.2) 0.1x10^3/uL (0.0-0.2) Segmented Neutrophils % 66% (35-66) Band Neutrophils % 2% (0-9) Lymphocytes % 16% (24-48) Atypical Lymphocytes % (Manual) 1% (0-0) Monocytes % 4% (0-10) Eosinophils % 10% (0-5) Metamyelocytes % 1% (0-0) Toxic Granulation Present Platelet Estimate Adequate (ADEQUATE) Large Platelets Present Sodium Level 143mmol/L (136-145) 140mmol/L (136-145) Potassium Level 4.1mmol/L (3.5-5.1) 4.2mmol/L (3.5-5.1) Chloride Level 105mmol/L (98-107) 104mmol/L (98-107) Carbon Dioxide Level 34mmol/L (21-32) 36mmol/L (21-32) Anion Gap 4 (6-14) 0 (6-14) Blood Urea Nitrogen 22mg/dL (8-26) 17mg/dL (8-26) Creatinine 0.7mg/dL (0.7-1.3) 0.7mg/dL (0.7-1.3) Estimated GFR (Cockcroft-Gault) 109.9 109.9 Glucose Level 109mg/dL (70-99) 89mg/dL (70-99) Calcium Level 8.0mg/dL (8.5-10.1) 8.4mg/dL (8.5-10.1) Laboratory Tests Test 10/13/16 04:10 White Blood Count 12.1x10^3/uL (4.0-11.0) Red Blood Count 3.18x10^6/uL (4.30-5.70) Hemoglobin 9.6g/dL (13.0-17.5) Hematocrit 29.5% (39.0-53.0) Mean Corpuscular Volume 93fL (79-100) Mean Corpuscular Hemoglobin 30pg (25-35) Mean Corpuscular Hemoglobin Concent 33g/dL (31-37) Red Cell Distribution Width 14.2% (11.5-14.5) Platelet Count 231x10^3/uL (140-400) Neutrophils (%) (Auto) 69% (31-73) Lymphocytes (%) (Auto) 12% (24-48) Monocytes (%) (Auto) 7% (0-9) Eosinophils (%) (Auto) 11% (0-3) Basophils (%) (Auto) 1% (0-3) Neutrophils # (Auto) 8.3x10^3uL (1.8-7.7) Lymphocytes # (Auto) 1.5x10^3/uL (1.0-4.8) Monocytes # (Auto) 0.9x10^3/uL (0.0-1.1) Eosinophils # (Auto) 1.3x10^3/uL (0.0-0.7) Basophils # (Auto) 0.1x10^3/uL (0.0-0.2) Sodium Level 140mmol/L (136-145) Potassium Level 4.2mmol/L (3.5-5.1) Chloride Level 104mmol/L (98-107) Carbon Dioxide Level 36mmol/L (21-32) Anion Gap 0 (6-14) Blood Urea Nitrogen 17mg/dL (8-26) Creatinine 0.7mg/dL (0.7-1.3) Estimated GFR (Cockcroft-Gault) 109.9 Glucose Level 89mg/dL (70-99) Calcium Level 8.4mg/dL (8.5-10.1) Microbiology 10/10/16 Blood Culture - Preliminary, Resulted NO GROWTH AFTER 2 DAYS 10/05/16 Urine Culture - Final, Complete 10/05/16 Urine Culture Result 1 (JABARI) - Final, Complete Medications Current Medications Albuterol/ Ipratropium (Duoneb) 3 ml 1X ONCE NEB Last administered on 22:21; Start 10/05/16 at 22:15; Stop 10/05/16 at 22:50; Status DC Ondansetron HCl 4 mg 4 mg PRN Q8HRS PRN IV NAUSEA/VOMITING; Start 10/05/16 at 23 :00; Stop 10/06/16 at 22:59; Status DC Sodium Chloride (Iv Sodium Chloride 0.9% 1000ml Bag) 1,000 ml @ 100 mls/hr Q10H IV Last administered on 10/06/16 18:59; Start 10/05/16 at 22:59; Stop at 22:58; Status DC Albuterol/ Ipratropium 3 ml 3 ml RTQID NEB Last administered on 10/07/16 07:47 ; Start 10/06/16 at 08:00; Stop 10/07/16 at 07:59; Status DC Ceftriaxone Sodium 1 gm/ Sodium Chloride 50 ml @ 100 mls/hr Q24H IV ; Start 10/06/16 at 22:00; Stop 10/06/16 at 22:00; Status DC Levofloxacin/ Dextrose (LEVAQUIN 750mg PREMIX) 150 ml @ 100 mls/hr 1X ONCE IV Last administered on 10/06/16 01:05; Start 10/05/16 at 23:30; Stop 10/06/16 at 00:59; Status DC Vancomycin HCl 1 each 1 each PRN DAILY PRN MC SEE COMMENTS Last administered on 10/07/16 14:14; Start 10/05/16 at 23:00; Stop 10/08/16 at 18:52; Status DC Ceftriaxone Sodium 50 ml @ 100 mls/hr 1X ONCE IV Last administered on 01:05; Start 10/05/16 at 23:30; Stop 10/05/16 at 23:59; Status DC Vancomycin HCl 2 gm/Sodium Chloride 500 ml @ 250 mls/hr 1X ONCE IV Last administered on 10/05/16 23:26; Start 10/06/16 at 00:00; Stop 10/06/16 at 01:59; Status DC Vancomycin HCl/ Sodium Chloride (Iv Sodium Chloride 0.9% 250ml) 250 ml @ 167 mls/hr Q12H IV Last administered on 10/08/16 13:20; Start 10/06/16 at 12:00; Stop 10/08/16 at 18:52; Status DC Vancomycin HCl 1 each 1 each 1X ONCE MC ; Start 10/07/16 at 11:30; Stop 10/07/16 at 11:31; Status DC Piperacillin Sod/ Tazobactam Sod/ Sodium Chloride (Zosyn/Iv Sodium Chloride 0.9 % 50ml) 50 ml @ 100 mls/hr Q6HRS IV Last administered on 10/06/16 11:56; Start 10/06/16 at 11:00; Stop 10/06/16 at 15:24; Status DC Piperacillin Sod/ Tazobactam Sod (Zosyn Per Pharmacy) 1 each PRN DAILY PRN MC SEE COMMENTS; Start 10/06/16 at 10:15 Aspirin (Ecotrin) 81 mg DAILY PO ; Start 10/06/16 at 11:30; Stop 10/06/16 at 11:30 ; Status DC Bisacodyl (Dulcolax Supp) 10 mg PRN DAILY PRN RC CONSTIPATION; Start 10/06/16 at 10:15 Furosemide (Lasix) 40 mg DAILY PO Last administered on 10/12/16 07:53; Start 10/06/16 at 11:30 Guaifenesin (Mucinex) 600 mg BID PO ; Start 10/06/16 at 11:30; Stop 10/06/16 at 11 :30; Status DC Potassium Chloride (KCl Oral Soln) 10 meq DAILY PEG Last administered on 07:52; Start 10/06/16 at 11:30 Simvastatin (Zocor) 20 mg QHS PO Last administered on 10/12/16 20:38; Start at 21:00 Tamsulosin HCl (Flomax) 0.4 mg DAILY PO Last administered on 10/07/16 08:58; Start 10/06/16 at 11:30; Stop 10/08/16 at 10:18; Status DC Multivitamins/ Minerals (Ocuvite Lutein) 1 cap DAILY PO Last administered on 07:53; Start 10/06/16 at 11:00 Artificial Tears (Artificial Tears) 1 drop PRN BID PRN OU DRY EYE Last administered on 10/11/16 08:39; Start 10/06/16 at 10:30 Aspirin (Children'S Aspirin) 81 mg DAILYWBKFT PO Last administered on 10/08/16 09:00; Start 10/06/16 at 11:30; Stop 10/08/16 at 11:31; Status DC Guaifenesin (Robitussin) 200 mg QID PO Last administered on 10/12/16 20:38; Start 10/06/16 at 11:30 Furosemide (Lasix) 40 mg 1X ONCE IVP Last administered on 10/06/16 12:01; Start 10/06/16 at 12:00; Stop 10/06/16 at 12:01; Status DC Acetaminophen (Tylenol) 650 mg PRN Q6HRS PRN PEG MILD PAIN / TEMP Last administered on 10/10/16 09:42; Start 10/06/16 at 12:15 Ondansetron HCl (Zofran) 4 mg PRN Q6HRS PRN IV NAUSEA/VOMITING; Start 10/06/16 at 12:15 Enoxaparin Sodium (Lovenox 40mg Syringe) 40 mg Q24H SQ Last administered on 11:22; Start 10/06/16 at 13:00 Nystatin 1 alejandro 1 alejandro BID TP Last administered on 10/13/16 09:14; Start at 14:30 Piperacillin Sod/ Tazobactam Sod/ Sodium Chloride (Zosyn/Iv Sodium Chloride 0.9 % 100ml) 100 ml @ 200 mls/hr Q6HRS IV Last administered on 10/13/16 05:43; Start 10/06/16 at 18:00 Meloxicam (Mobic) 7.5 mg DAILY PO Last administered on 10/12/16 07:54; Start 10/07/16 at 10:00 Acetaminophen/ Hydrocodone Bitart (Lortab 5/325) 1 tab PRN Q4HRS PRN PO MODERATE - SEVERE PAIN Last administered on 10/12/16 07:50; Start 10/07/16 at 10 :45 Furosemide (Lasix) 20 mg 1X ONCE IVP Last administered on 10/07/16 18:24; Start 10/07/16 at 12:00; Stop 10/07/16 at 12:01; Status DC Digoxin 500 mcg 500 mcg 1X ONCE IV Last administered on 10/07/16 22:38; Start 10/07/16 at 22:15; Stop 10/07/16 at 22:17; Status DC Micafungin Sodium/ Dextrose (Mycamine) 100 ml @ 100 mls/hr Q24H IV Last administered on 10/12/16 07:50; Start 10/08/16 at 09:00 Iohexol (Omnipaque 240 Mg/ml) 30 ml 1X ONCE PO Last administered on 10/08/16 11:47; Start 10/08/16 at 09:15; Stop 10/08/16 at 09:18; Status DC Iohexol (Omnipaque 300 Mg/ml) 75 ml 1X ONCE IV Last administered on 10/08/16 11:46; Start 10/08/16 at 09:15; Stop 10/08/16 at 09:18; Status DC Finasteride (Proscar) 5 mg DAILY PO Last administered on 10/12/16 07:53; Start 10/09/16 at 09:00 Methylprednisolone Acetate (Depo-Medrol 40mg Vial) 40 mg 1X ONCE IM ; Start 10/08/16 at 10:45; Stop 10/08/16 at 10:53; Status DC Methylprednisolone Acetate (Depo-Medrol 40mg Vial) 40 mg 1X ONCE IM ; Start 10/08/16 at 10:45; Stop 10/08/16 at 10:53; Status DC Bupivacaine HCl (Sensorcaine-Mpf 0.25%) 10 ml 1X ONCE IJ ; Start 10/08/16 at 10: 45; Stop 10/08/16 at 10:53; Status DC Digoxin (Lanoxin) 125 mcg DAILY PO Last administered on 10/12/16 07:53; Start 10/08/16 at 11:30 Aspirin (Children'S Aspirin) 325 mg DAILYWBKFT PO Last administered on 12:38; Start 10/08/16 at 11:30; Stop 10/08/16 at 13:30; Status DC Lactobacillus Acidophilus (Bacid, Danielle-Bid) 1 tab DAILY PO Last administered on 10/12/16 07:53; Start 10/08/16 at 13:00 Aspirin (Children'S Aspirin) 324 mg DAILYWBKFT PO Last administered on 07:52; Start 10/08/16 at 13:30 Oxycodone/ Acetaminophen (Percocet 10/325) 1 tab PRN Q6HRS PRN PO PAIN Last administered on 10/12/16 15:39; Start 10/09/16 at 10:30 Furosemide (Lasix) 20 mg 1X ONCE IVP Last administered on 10/09/16 16:54; Start 10/09/16 at 15:00; Stop 10/09/16 at 15:01; Status DC Urea (Ritu Lo 40, X-Viate) 1 alejandro DAILY TP Last administered on 10/12/16 07:55; Start 10/09/16 at 18:00 Nystatin 5 ml 5 ml [id number] Last administered on 10/12/16 20:38; Start 06/18 at 13:00 Potassium Chloride (KCl Premix 10meq) 100 ml @ 100 mls/hr Q1H IV Last administered on 10/10/16 17:00; Start 10/10/16 at 14:00; Stop 10/10/16 at 17:59 ; Status DC Vancomycin HCl 1 each 1 each PRN DAILY PRN MC SEE COMMENTS Last administered on 10/12/16 12:27; Start 10/10/16 at 14:45 Vancomycin HCl 2 gm/Sodium Chloride 500 ml @ 250 mls/hr 1X ONCE IV Last administered on 10/10/16 15:30; Start 10/10/16 at 15:30; Stop 10/10/16 at 17:29 ; Status DC Vancomycin HCl/ Sodium Chloride (Iv Sodium Chloride 0.9% 250ml) 250 ml @ 167 mls/hr Q12H IV Last administered on 10/13/16 04:12; Start 10/11/16 at 05:00 Active Scripts Active Reported Isopto Tears (Hypromellose) 15 Ml Drops 15 Ml OP Oxycodone Hcl 10 Mg Tablet 1 Tab PO QID Ocuvite Tablet (Vit A,C & E/Lutein/Minerals) 1 Each Tablet 1 Each PO Dulcolax (Bisacodyl) 10 Mg Supp.rect 10 Mg RC PRN DAILY PRN Milk Of Magnesia (Magnesium Hydroxide) 400 Mg/5 Ml Oral.susp 400 Mg PO Simvastatin 20 Mg Tablet 1 Tab PO QHS Refresh Optive Eye Drops (Carboxymethylcellulos/Glycerin) 15 Ml Drops 1 Drop EACHEYE BID Tamsulosin Hcl 0.4 Mg Cap.er.24h 1 Cap PO DAILY Potassium Chloride Oral Liquid (Potassium Chloride) 20 Meq/15 Ml Liquid 10 Meq PEG DAILY Aspir 81 (Aspirin) 81 Mg Tablet.dr 1 Tab PO DAILY Furosemide 40 Mg Tablet 1 Tab PO DAILY Meloxicam 7.5 Mg Tablet 1 Tab PO DAILY Trazodone Hcl 50 Mg Tablet 1 Tab PO QHS Mucinex (Guaifenesin) 600 Mg Tablet.er 600 Mg PO Vitals/I & O Vital Sign - Last 24 Hours 10/12/16 10/12/16 10/12/16 10/12/16 14:52 15:39 16:31 19:00 Temp 97.5 98.5 97.5 98.5 Pulse 81 66 Resp 20 20 18 20 B/P 138/58 125/59 Pulse Ox 94 94 94 94 O2 Delivery Nasal Cannula Nasal Cannula Nasal Cannula Nasal Cannula O2 Flow Rate 5.0 5.0 5.0 10/12/16 10/12/16 10/13/16 10/13/16 19:54 23:00 03:03 07:00 Temp 98.3 98.9 100.4 98.3 98.9 100.4 Pulse 78 78 80 Resp 20 20 21 B/P 126/56 109/58 141/44 Pulse Ox 90 91 86 O2 Delivery Nasal Cannula Nasal Cannula Nasal Cannula Nasal Cannula O2 Flow Rate 5.0 6.0 Intake and Output 10/12/16 10/12/16 10/13/16 15:00 23:00 07:00 Intake Total 250 ml 450 ml Output Total 1351 ml 1000 ml Balance -1351 ml 250 ml -550 ml LILLY VÁZQUEZ III DO Oct 13, 2016 11:34
--- NOTE | 2016-10-13 11:42 | PDOC ---
Infectious Disease Note Subjective Subjective more alert and says ok Pulled out Peg last pm ROS ROS GEN: Denies fevers, chills, sweats HEENT: Denies blurred vision, sore throat CV: Denies chest pain RESP: Denies shortness of air, cough GI: Denies n/v/d NEURO: Denies confusion, dizziness MSK: Denies weakness, joint pain/swelling Vital Sign Vital Signs Vital Signs Date Time Temp Pulse Resp B/P Pulse Ox O2 Delivery O2 Flow Rate FiO2 10/13/16 11:00 98.6 91 22 132/79 98 Venturi Mask 15.0 98.6 Physical Exam PHYSICAL EXAM GENERAL: More alert but still weak, NAD HEENT: Oral cavity dry LUNGS: CTA 02 HEART: S1S2 ABD: Obese, soft, No grimace or guarding to palpation. : Tinsley. Scrotal swelling EXT: BLE edema. . Left great toe bandaged. 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 SKIN: No rash IV: ok Labs Lab Laboratory Tests Test 10/13/16 04:10 White Blood Count 12.1x10^3/uL (4.0-11.0) Red Blood Count 3.18x10^6/uL (4.30-5.70) Hemoglobin 9.6g/dL (13.0-17.5) Hematocrit 29.5% (39.0-53.0) Mean Corpuscular Volume 93fL (79-100) Mean Corpuscular Hemoglobin 30pg (25-35) Mean Corpuscular Hemoglobin Concent 33g/dL (31-37) Red Cell Distribution Width 14.2% (11.5-14.5) Platelet Count 231x10^3/uL (140-400) Neutrophils (%) (Auto) 69% (31-73) Lymphocytes (%) (Auto) 12% (24-48) Monocytes (%) (Auto) 7% (0-9) Eosinophils (%) (Auto) 11% (0-3) Basophils (%) (Auto) 1% (0-3) Neutrophils # (Auto) 8.3x10^3uL (1.8-7.7) Lymphocytes # (Auto) 1.5x10^3/uL (1.0-4.8) Monocytes # (Auto) 0.9x10^3/uL (0.0-1.1) Eosinophils # (Auto) 1.3x10^3/uL (0.0-0.7) Basophils # (Auto) 0.1x10^3/uL (0.0-0.2) Sodium Level 140mmol/L (136-145) Potassium Level 4.2mmol/L (3.5-5.1) Chloride Level 104mmol/L (98-107) Carbon Dioxide Level 36mmol/L (21-32) Anion Gap 0 (6-14) Blood Urea Nitrogen 17mg/dL (8-26) Creatinine 0.7mg/dL (0.7-1.3) Estimated GFR (Cockcroft-Gault) 109.9 Glucose Level 89mg/dL (70-99) Calcium Level 8.4mg/dL (8.5-10.1) Objective Assessment Leukocytosis - increased Left elbow effusion Fever - better Pneumonia Gout Debility Gluteal ulcer/decub Diarrhea. c. diff negative s/p nails debrided x 10 with microbleed to left hallux. 10/09 Inguinal hernia Plan Plan of Care MRI - Left elbow reviewed D/w Dr. Calderon will I and D elbow - r/o infection and gout. If gout alone may benefit from Systemic steroids Cont Zosyn (10/06) and micafungin (10/08) Vanc (10/10) F/u Blood cults times 2 Monitor labs/cultures D/w Grand - daughter RAÚL SCHMITT MD Oct 13, 2016 11:41
[2016-10-13] MEDS ORDERED: IV RINGERS,LACTATED 1000ML 1,000 ML IV SCH (12:23)
[2016-10-13] MEDS ORDERED: ONDANSETRON PF 4 MG/2 ML VIAL. IV PRN (12:30)
[2016-10-13] MEDS ORDERED: PROCHLORPERAZINE 10 MG/2 ML VIAL. IV PRN (12:30)
[2016-10-13] MEDS ORDERED: MORPHINE SULFATE 2 MG/ML DISP.SYRIN. IV PRN (12:30)
[2016-10-13] MEDS ORDERED: FENTANYL PF 100 MCG/2 ML VIAL. IV PRN ×2 (12:30)
[2016-10-13] MEDS ORDERED: HYDROMORPHONE 2 MG/ML VIAL. IV PRN (12:30)
[2016-10-13] MEDS ORDERED: LIDOCAINE 1% 1 ML SYRINGE. ID PRN (12:30)
[2016-10-13] MEDS: ENOXAPARIN 40 MG/0.4 ML DISP.SYRIN. SQ SCH (13:00)
[2016-10-13] MEDS: VANCOMYCIN PER PHARMACY MC PRN (13:15)
[2016-10-13] MEDS ORDERED: LIDOCAINE 2% PF Vial for OR 5 ML VIAL. ONE (15:07)
[2016-10-13] MEDS ORDERED: PROPOFOL 20 ML IV ONE ×2 (15:07→18:42)
--- NOTE | 2016-10-13 16:08 | PDOC4 ---
Operative Note Operative Note EGD with PEG placement Meds propofol 1- mg iv Pre-op dx oropharyngeal dysphagia post-op dx non-erosive gastritis S/p 20 FR Bard tube placed via old tract- no incision made Plan resume meds and diet via peg after surgical debridement of elbow later today MICHELLE REDDY MD Oct 13, 2016 16:08
[2016-10-13] MEDS ORDERED: LIDOCAINE 2% 100 MG/5 ML DISP.SYRIN. ONE (18:42)
[2016-10-13] MEDS ORDERED: ONDANSETRON PF 4 MG/2 ML VIAL. ONE (19:16)
[2016-10-13] MEDS ORDERED: PHENYLEPHRINE in 0.9% NACL PF 1 MG/10 ML DISP.SYRIN. IV ONE (19:16)
[2016-10-13] MEDS ORDERED: SEVOFLURANE 31 TO 60 MINUTES. IH ONE (19:28)
[2016-10-13] MEDS ORDERED: DEXAMETHASONE SOD PHOS 20 MG/5 ML VIAL. ONE (19:29)
--- NOTE | 2016-10-13 19:49 | PDOC ---
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 Complications none Additional Remarks 6L of sterile saline were run through the incision. excisional debridement of muscle, fascia and bone was performed. cultures sent. 5.5 ft of iodoform gauze packing was placed in the incision. reapproximated with nylon sutures. will dc half the packing each day over the next few days. fu cultures abx per id SHEYLA BAJWA MD Oct 13, 2016 19:49
[2016-10-13 23:30] VITALS: BP 150/58
[2016-10-14] VITALS (7 sets, daily range): BP systolic 99–125; BP diastolic 48–59
[2016-10-14] MEDS: SIMVASTATIN 20 MG TABLET PO SCH ×2 (00:13→22:17)
[2016-10-14] MEDS: PIPERACILLIN/TAZOBACTAM 4.5 GM in IV NORMAL SALINE 100ML 100 ML IV SCH ×4 (00:14→18:39)
[2016-10-14] MEDS: NYSTATIN TOPICAL POWDER 15GM BOTTLE. TP SCH ×3 (00:15→21:00)
[2016-10-14] MEDS: NYSTATIN 100,000 UNITS/ML 5 ML ORAL.SUSP. SWSW SCH ×5 (00:15→22:16)
[2016-10-14] MEDS: GUAIFENESIN 200 MG/10 ML LIQUID. PO SCH ×5 (00:15→22:16)
[2016-10-14] MEDS ORDERED: IPRATRPIUM/ALBUTEROL 0.5/2.5MG 3 ML NEBU. NEB ONE (03:45)
[2016-10-14] MEDS ORDERED: FUROSEMIDE 20 MG/2 ML VIAL IVP ONE (05:15)
[2016-10-14 05:31] LABS: BASO % 0 % (0-3); EOS % 0 % (0-3); HEMATOCRIT 30.2 % (39.0-53.0); HEMOGLOBIN 10.4 g/dL (13.0-17.5); LYMPH # 0.6 x10^3/uL (1.0-4.8); LYMPH % 4 % (24-48); MEAN CORPUSCULAR HEMOGLOBIN 32 pg (25-35); MEAN CORPUSCULAR HGB CONC 34 g/dL (31-37); MEAN CORPUSCULAR VOLUME 93 fL (79-100); MONO % 4 % (0-9); NEUT % 91 % (31-73); PLATELET COUNT 313 x10^3/uL (140-400); RED BLOOD COUNT 3.26 x10^6/uL (4.30-5.70); RED CELL DISTRIBUTION WIDTH 14.6 % (11.5-14.5); WHITE BLOOD COUNT 13.4 x10^3/uL (4.0-11.0)
--- NOTE | 2016-10-14 05:35 | RAD ---
Portable chest one view Indication: Decreased oxygen saturation and shortness of breath. Time of exam 5:19 a.m. Comparison is made with prior chest from 10/08/2016. The heart is enlarged but stable. There are changes of median sternotomy. Central congestive changes appear similar to prior study. There is blunting of both costophrenic angles suggestive of small bilateral effusions. No pneumothorax is seen. Impression: Congestive changes with small bilateral pleural effusions, similar to perhaps slightly increased when compared with exam from 10/08/2016. Electronically signed by: Tad Orlando MD (Oct 14, 2016 05:33:34)
[2016-10-14 05:43] LABS: CALCIUM 8.7 mg/dL (8.5-10.1); GFR 72.8; POTASSIUM 4.7 mmol/L (3.5-5.1)
[2016-10-14] MEDS: VANCOMYCIN PER PHARMACY MC PRN ×2 (06:05→06:06)
[2016-10-14] MEDS: VANCOMYCIN 1 GM in IV NORMAL SALINE 250ML 250 ML IV SCH ×2 (06:28→20:02)
--- NOTE | 2016-10-14 07:21 | PDOC ---
Infectious Disease Note Subjective Subjective Lethargic ROS ROS Unobtainable Vital Sign Vital Signs Vital Signs Date Time Temp Pulse Resp B/P Pulse Ox O2 Delivery O2 Flow Rate FiO2 10/14/16 03:58 94 Venturi Mask 10/14/16 03:30 98.5 95 23 99/48 15.0 98.5 Physical Exam PHYSICAL EXAM GENERAL: Lethargic, NAD HEENT: PERRLA, Oral cavity dry LUNGS: CTA 02 - On facemask HEART: S1S2 ABD: Obese, soft, No grimace or guarding to palpation. : Tinsley. Scrotal swelling EXT: BLE edema. . Left great toe bandaged. 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 SKIN: No rash IV: PICC RUE Labs Lab Laboratory Tests Test 10/14/16 05:00 White Blood Count 13.4x10^3/uL (4.0-11.0) Red Blood Count 3.26x10^6/uL (4.30-5.70) Hemoglobin 10.4g/dL (13.0-17.5) Hematocrit 30.2% (39.0-53.0) Mean Corpuscular Volume 93fL (79-100) Mean Corpuscular Hemoglobin 32pg (25-35) Mean Corpuscular Hemoglobin Concent 34g/dL (31-37) Red Cell Distribution Width 14.6% (11.5-14.5) Platelet Count 313x10^3/uL (140-400) Neutrophils (%) (Auto) 91% (31-73) Lymphocytes (%) (Auto) 4% (24-48) Monocytes (%) (Auto) 4% (0-9) Eosinophils (%) (Auto) 0% (0-3) Basophils (%) (Auto) 0% (0-3) Neutrophils # (Auto) 12.3x10^3uL (1.8-7.7) Lymphocytes # (Auto) 0.6x10^3/uL (1.0-4.8) Monocytes # (Auto) 0.6x10^3/uL (0.0-1.1) Eosinophils # (Auto) 0.0x10^3/uL (0.0-0.7) Basophils # (Auto) 0.0x10^3/uL (0.0-0.2) Sodium Level 143mmol/L (136-145) Potassium Level 4.7mmol/L (3.5-5.1) Chloride Level 104mmol/L (98-107) Carbon Dioxide Level 36mmol/L (21-32) Anion Gap 3 (6-14) Blood Urea Nitrogen 21mg/dL (8-26) Creatinine 1.0mg/dL (0.7-1.3) Estimated GFR (Cockcroft-Gault) 72.8 Glucose Level 156mg/dL (70-99) Calcium Level 8.7mg/dL (8.5-10.1) Vancomycin Level Trough 21.5mcg/mL (10.0-20.0) Vancomycin Last Dose Date 10/13/16 Vancomycin Last Dose Time 1700 Objective Assessment Leukocytosis - increased ? post op Left elbow effusion s/p I and D 10/13 S/p PEG replacement 10/13 Encephalopathy - ? post op now Fever - better Pneumonia Gout Debility Gluteal ulcer/decub Diarrhea. c. diff negative s/p nails debrided x 10 with microbleed to left hallux. 10/09 Inguinal hernia Plan Plan of Care Cont Zosyn (10/06) and micafungin (10/08) Vanc (10/10) F/u Blood cults times 2 and surgical cult If gout alone in elbow may benefit from Systemic steroids Monitor labs/cultures RAÚL SCHMITT MD Oct 14, 2016 07:21
[2016-10-14] MEDS: LACTOBACILLUS ACIDOPH & BULGAR 1 TABLET. PO SCH (08:18)
[2016-10-14] MEDS: POTASSIUM CHLORIDE 20 MEQ/15 ML ORAL LIQUID. PEG SCH (08:18)
[2016-10-14] MEDS: ASPIRIN 81 MG TAB.CHEW PO SCH (08:19)
[2016-10-14] MEDS: HYDROCODONE/APAP 5/325MG TABLET. PO PRN ×2 (08:21→14:36)
[2016-10-14] MEDS: DIGOXIN 125 MCG TABLET PO SCH (08:22)
[2016-10-14] MEDS: MELOXICAM 7.5 MG TABLET PO SCH (08:22)
[2016-10-14] MEDS: FINASTERIDE 5 MG TABLET PO SCH (08:22)
[2016-10-14] MEDS: MULTIVITAMIN EYE FORMULA CAPSULE. PO SCH (08:25)
[2016-10-14] MEDS: FUROSEMIDE 40 MG TABLET PO SCH (09:00)
--- NOTE | 2016-10-14 10:01 | PDOC ---
PROGRESS NOTES Subjective Subjective He had no new complaints. Objective Objective Vital Signs Date Time Temp Pulse Resp B/P Pulse Ox O2 Delivery O2 Flow Rate FiO2 10/14/16 08:22 97 10/14/16 08:21 22 98 Venturi Mask 15.0 10/14/16 07:00 98.4 115/50 98.4 Intake and Output 10/14/16 07:00 Intake Total 1100 ml Output Total 2705 ml Balance -1605 ml Intake Oral 0 ml IV Total 1100 ml Tube Feeding 0 ml Output Urine Total 2705 ml # Bowel Movements 2 Physical Exam Physical Exam He is lethargic and difficult to wake him up. Assessment Assessment Problems Medical Problems: (1) Altered mental status Status: Acute (2) Hospital acquired PNA Status: Acute Plan Plan of Care To obtain ABGs. Comment Review of Relevant I have reviewed the following items cassidy (where applicable) has been applied. Labs Laboratory Tests Test 10/13/16 04:10 10/14/16 05:00 White Blood Count 12.1x10^3/uL (4.0-11.0) 13.4x10^3/uL (4.0-11.0) Red Blood Count 3.18x10^6/uL (4.30-5.70) 3.26x10^6/uL (4.30-5.70) Hemoglobin 9.6g/dL (13.0-17.5) 10.4g/dL (13.0-17.5) Hematocrit 29.5% (39.0-53.0) 30.2% (39.0-53.0) Mean Corpuscular Volume 93fL (79-100) 93fL (79-100) Mean Corpuscular Hemoglobin 30pg (25-35) 32pg (25-35) Mean Corpuscular Hemoglobin Concent 33g/dL (31-37) 34g/dL (31-37) Red Cell Distribution Width 14.2% (11.5-14.5) 14.6% (11.5-14.5) Platelet Count 231x10^3/uL (140-400) 313x10^3/uL (140-400) Neutrophils (%) (Auto) 69% (31-73) 91% (31-73) Lymphocytes (%) (Auto) 12% (24-48) 4% (24-48) Monocytes (%) (Auto) 7% (0-9) 4% (0-9) Eosinophils (%) (Auto) 11% (0-3) 0% (0-3) Basophils (%) (Auto) 1% (0-3) 0% (0-3) Neutrophils # (Auto) 8.3x10^3uL (1.8-7.7) 12.3x10^3uL (1.8-7.7) Lymphocytes # (Auto) 1.5x10^3/uL (1.0-4.8) 0.6x10^3/uL (1.0-4.8) Monocytes # (Auto) 0.9x10^3/uL (0.0-1.1) 0.6x10^3/uL (0.0-1.1) Eosinophils # (Auto) 1.3x10^3/uL (0.0-0.7) 0.0x10^3/uL (0.0-0.7) Basophils # (Auto) 0.1x10^3/uL (0.0-0.2) 0.0x10^3/uL (0.0-0.2) Sodium Level 140mmol/L (136-145) 143mmol/L (136-145) Potassium Level 4.2mmol/L (3.5-5.1) 4.7mmol/L (3.5-5.1) Chloride Level 104mmol/L (98-107) 104mmol/L (98-107) Carbon Dioxide Level 36mmol/L (21-32) 36mmol/L (21-32) Anion Gap 0 (6-14) 3 (6-14) Blood Urea Nitrogen 17mg/dL (8-26) 21mg/dL (8-26) Creatinine 0.7mg/dL (0.7-1.3) 1.0mg/dL (0.7-1.3) Estimated GFR (Cockcroft-Gault) 109.9 72.8 Glucose Level 89mg/dL (70-99) 156mg/dL (70-99) Calcium Level 8.4mg/dL (8.5-10.1) 8.7mg/dL (8.5-10.1) Vancomycin Level Trough 21.5mcg/mL (10.0-20.0) Vancomycin Last Dose Date 10/13/16 Vancomycin Last Dose Time 1700 Laboratory Tests Test 10/14/16 05:00 White Blood Count 13.4x10^3/uL (4.0-11.0) Red Blood Count 3.26x10^6/uL (4.30-5.70) Hemoglobin 10.4g/dL (13.0-17.5) Hematocrit 30.2% (39.0-53.0) Mean Corpuscular Volume 93fL (79-100) Mean Corpuscular Hemoglobin 32pg (25-35) Mean Corpuscular Hemoglobin Concent 34g/dL (31-37) Red Cell Distribution Width 14.6% (11.5-14.5) Platelet Count 313x10^3/uL (140-400) Neutrophils (%) (Auto) 91% (31-73) Lymphocytes (%) (Auto) 4% (24-48) Monocytes (%) (Auto) 4% (0-9) Eosinophils (%) (Auto) 0% (0-3) Basophils (%) (Auto) 0% (0-3) Neutrophils # (Auto) 12.3x10^3uL (1.8-7.7) Lymphocytes # (Auto) 0.6x10^3/uL (1.0-4.8) Monocytes # (Auto) 0.6x10^3/uL (0.0-1.1) Eosinophils # (Auto) 0.0x10^3/uL (0.0-0.7) Basophils # (Auto) 0.0x10^3/uL (0.0-0.2) Sodium Level 143mmol/L (136-145) Potassium Level 4.7mmol/L (3.5-5.1) Chloride Level 104mmol/L (98-107) Carbon Dioxide Level 36mmol/L (21-32) Anion Gap 3 (6-14) Blood Urea Nitrogen 21mg/dL (8-26) Creatinine 1.0mg/dL (0.7-1.3) Estimated GFR (Cockcroft-Gault) 72.8 Glucose Level 156mg/dL (70-99) Calcium Level 8.7mg/dL (8.5-10.1) Vancomycin Level Trough 21.5mcg/mL (10.0-20.0) Vancomycin Last Dose Date 10/13/16 Vancomycin Last Dose Time 1700 Microbiology 10/10/16 Blood Culture - Preliminary, Resulted NO GROWTH AFTER 3 DAYS 10/05/16 Urine Culture - Final, Complete 10/05/16 Urine Culture Result 1 (JABARI) - Final, Complete Medications Current Medications Albuterol/ Ipratropium (Duoneb) 3 ml 1X ONCE NEB Last administered on 22:21; Start 10/05/16 at 22:15; Stop 10/05/16 at 22:50; Status DC Ondansetron HCl 4 mg 4 mg PRN Q8HRS PRN IV NAUSEA/VOMITING; Start 10/05/16 at 23 :00; Stop 10/06/16 at 22:59; Status DC Sodium Chloride (Iv Sodium Chloride 0.9% 1000ml Bag) 1,000 ml @ 100 mls/hr Q10H IV Last administered on 10/06/16 18:59; Start 10/05/16 at 22:59; Stop at 22:58; Status DC Albuterol/ Ipratropium 3 ml 3 ml RTQID NEB Last administered on 10/07/16 07:47 ; Start 10/06/16 at 08:00; Stop 10/07/16 at 07:59; Status DC Ceftriaxone Sodium 1 gm/ Sodium Chloride 50 ml @ 100 mls/hr Q24H IV ; Start 10/06/16 at 22:00; Stop 10/06/16 at 22:00; Status DC Levofloxacin/ Dextrose (LEVAQUIN 750mg PREMIX) 150 ml @ 100 mls/hr 1X ONCE IV Last administered on 10/06/16 01:05; Start 10/05/16 at 23:30; Stop 10/06/16 at 00:59; Status DC Vancomycin HCl 1 each 1 each PRN DAILY PRN MC SEE COMMENTS Last administered on 10/07/16 14:14; Start 10/05/16 at 23:00; Stop 10/08/16 at 18:52; Status DC Ceftriaxone Sodium 50 ml @ 100 mls/hr 1X ONCE IV Last administered on 01:05; Start 10/05/16 at 23:30; Stop 10/05/16 at 23:59; Status DC Vancomycin HCl 2 gm/Sodium Chloride 500 ml @ 250 mls/hr 1X ONCE IV Last administered on 10/05/16 23:26; Start 10/06/16 at 00:00; Stop 10/06/16 at 01:59; Status DC Vancomycin HCl/ Sodium Chloride (Iv Sodium Chloride 0.9% 250ml) 250 ml @ 167 mls/hr Q12H IV Last administered on 10/08/16 13:20; Start 10/06/16 at 12:00; Stop 10/08/16 at 18:52; Status DC Vancomycin HCl 1 each 1 each 1X ONCE MC ; Start 10/07/16 at 11:30; Stop 10/07/16 at 11:31; Status DC Piperacillin Sod/ Tazobactam Sod/ Sodium Chloride (Zosyn/Iv Sodium Chloride 0.9 % 50ml) 50 ml @ 100 mls/hr Q6HRS IV Last administered on 10/06/16 11:56; Start 10/06/16 at 11:00; Stop 10/06/16 at 15:24; Status DC Piperacillin Sod/ Tazobactam Sod (Zosyn Per Pharmacy) 1 each PRN DAILY PRN MC SEE COMMENTS; Start 10/06/16 at 10:15 Aspirin (Ecotrin) 81 mg DAILY PO ; Start 10/06/16 at 11:30; Stop 10/06/16 at 11:30 ; Status DC Bisacodyl (Dulcolax Supp) 10 mg PRN DAILY PRN RC CONSTIPATION; Start 10/06/16 at 10:15 Furosemide (Lasix) 40 mg DAILY PO Last administered on 10/12/16 07:53; Start 10/06/16 at 11:30 Guaifenesin (Mucinex) 600 mg BID PO ; Start 10/06/16 at 11:30; Stop 10/06/16 at 11 :30; Status DC Potassium Chloride (KCl Oral Soln) 10 meq DAILY PEG Last administered on 08:18; Start 10/06/16 at 11:30 Simvastatin (Zocor) 20 mg QHS PO Last administered on 10/14/16 00:13; Start at 21:00 Tamsulosin HCl (Flomax) 0.4 mg DAILY PO Last administered on 10/07/16 08:58; Start 10/06/16 at 11:30; Stop 10/08/16 at 10:18; Status DC Multivitamins/ Minerals (Ocuvite Lutein) 1 cap DAILY PO Last administered on 07:53; Start 10/06/16 at 11:00 Artificial Tears (Artificial Tears) 1 drop PRN BID PRN OU DRY EYE Last administered on 10/11/16 08:39; Start 10/06/16 at 10:30 Aspirin (Children'S Aspirin) 81 mg DAILYWBKFT PO Last administered on 10/08/16 09:00; Start 10/06/16 at 11:30; Stop 10/08/16 at 11:31; Status DC Guaifenesin (Robitussin) 200 mg QID PO Last administered on 10/14/16 08:23; Start 10/06/16 at 11:30 Furosemide (Lasix) 40 mg 1X ONCE IVP Last administered on 10/06/16 12:01; Start 10/06/16 at 12:00; Stop 10/06/16 at 12:01; Status DC Acetaminophen (Tylenol) 650 mg PRN Q6HRS PRN PEG MILD PAIN / TEMP Last administered on 10/10/16 09:42; Start 10/06/16 at 12:15 Ondansetron HCl (Zofran) 4 mg PRN Q6HRS PRN IV NAUSEA/VOMITING; Start 10/06/16 at 12:15 Enoxaparin Sodium (Lovenox 40mg Syringe) 40 mg Q24H SQ Last administered on 11:22; Start 10/06/16 at 13:00 Nystatin 1 alejandro 1 alejandro BID TP Last administered on 10/14/16 00:15; Start at 14:30 Piperacillin Sod/ Tazobactam Sod/ Sodium Chloride (Zosyn/Iv Sodium Chloride 0.9 % 100ml) 100 ml @ 200 mls/hr Q6HRS IV Last administered on 10/14/16 05:31; Start 10/06/16 at 18:00 Meloxicam (Mobic) 7.5 mg DAILY PO Last administered on 10/14/16 08:22; Start 10/07/16 at 10:00 Acetaminophen/ Hydrocodone Bitart (Lortab 5/325) 1 tab PRN Q4HRS PRN PO MODERATE - SEVERE PAIN Last administered on 10/14/16 08:21; Start 10/07/16 at 10 :45 Furosemide (Lasix) 20 mg 1X ONCE IVP Last administered on 10/07/16 18:24; Start 10/07/16 at 12:00; Stop 10/07/16 at 12:01; Status DC Digoxin 500 mcg 500 mcg 1X ONCE IV Last administered on 10/07/16 22:38; Start 10/07/16 at 22:15; Stop 10/07/16 at 22:17; Status DC Micafungin Sodium/ Dextrose (Mycamine) 100 ml @ 100 mls/hr Q24H IV Last administered on 10/12/16 07:50; Start 10/08/16 at 09:00 Iohexol (Omnipaque 240 Mg/ml) 30 ml 1X ONCE PO Last administered on 10/08/16 11:47; Start 10/08/16 at 09:15; Stop 10/08/16 at 09:18; Status DC Iohexol (Omnipaque 300 Mg/ml) 75 ml 1X ONCE IV Last administered on 10/08/16 11:46; Start 10/08/16 at 09:15; Stop 10/08/16 at 09:18; Status DC Finasteride (Proscar) 5 mg DAILY PO Last administered on 10/14/16 08:22; Start 10/09/16 at 09:00 Methylprednisolone Acetate (Depo-Medrol 40mg Vial) 40 mg 1X ONCE IM ; Start 10/08/16 at 10:45; Stop 10/08/16 at 10:53; Status DC Methylprednisolone Acetate (Depo-Medrol 40mg Vial) 40 mg 1X ONCE IM ; Start 10/08/16 at 10:45; Stop 10/08/16 at 10:53; Status DC Bupivacaine HCl (Sensorcaine-Mpf 0.25%) 10 ml 1X ONCE IJ ; Start 10/08/16 at 10: 45; Stop 10/08/16 at 10:53; Status DC Digoxin (Lanoxin) 125 mcg DAILY PO Last administered on 10/14/16 08:22; Start 10/08/16 at 11:30 Aspirin (Children'S Aspirin) 325 mg DAILYWBKFT PO Last administered on 12:38; Start 10/08/16 at 11:30; Stop 10/08/16 at 13:30; Status DC Lactobacillus Acidophilus (Bacid, Danielle-Bid) 1 tab DAILY PO Last administered on 10/14/16 08:18; Start 10/08/16 at 13:00 Aspirin (Children'S Aspirin) 324 mg DAILYWBKFT PO Last administered on 08:19; Start 10/08/16 at 13:30 Oxycodone/ Acetaminophen (Percocet 10/325) 1 tab PRN Q6HRS PRN PO PAIN Last administered on 10/12/16 15:39; Start 10/09/16 at 10:30 Furosemide (Lasix) 20 mg 1X ONCE IVP Last administered on 10/09/16 16:54; Start 10/09/16 at 15:00; Stop 10/09/16 at 15:01; Status DC Urea ([place] Lo 40, X-Viate) 1 alejandro DAILY TP Last administered on 10/12/16 07:55; Start 10/09/16 at 18:00 Nystatin 5 ml 5 ml [id number] Last administered on 10/14/16 08:23; Start 06/18 at 13:00 Potassium Chloride (KCl Premix 10meq) 100 ml @ 100 mls/hr Q1H IV Last administered on 10/10/16 17:00; Start 10/10/16 at 14:00; Stop 10/10/16 at 17:59 ; Status DC Vancomycin HCl 1 each 1 each PRN DAILY PRN MC SEE COMMENTS Last administered on 10/14/16 06:06; Start 10/10/16 at 14:45 Vancomycin HCl 2 gm/Sodium Chloride 500 ml @ 250 mls/hr 1X ONCE IV Last administered on 10/10/16 15:30; Start 10/10/16 at 15:30; Stop 10/10/16 at 17:29 ; Status DC Vancomycin HCl/ Sodium Chloride (Iv Sodium Chloride 0.9% 250ml) 250 ml @ 167 mls/hr Q12H IV Last administered on 10/13/16 17:43; Start 10/11/16 at 05:00; Stop 10/14/16 at 05:57; Status DC Ondansetron HCl (Zofran) 4 mg PRN Q6HRS PRN IV Nausea; Start 10/13/16 at 12:30 ; Stop 10/14/16 at 12:29 Fentanyl Citrate (Fentanyl 2ml Vial) 25 mcg PRN Q5MIN PRN IV MILD PAIN; Start 10/13/16 at 12:30; Stop 10/14/16 at 12:29 Fentanyl Citrate (Fentanyl 2ml Vial) 50 mcg PRN Q5MIN PRN IV MODERATE PAIN; Start 10/13/16 at 12:30; Stop 10/14/16 at 12:29 Morphine Sulfate 1 mg 1 mg PRN Q10MIN PRN IV SEVERE PAIN; Start 10/13/16 at 12: 30; Stop 10/14/16 at 12:29 Lactated Ringer's (Iv Lactated Ringers) 1,000 ml @ 0 mls/hr Q0M IV ; Start at 12:23; Stop 10/14/16 at 00:22; Status DC Lidocaine HCl 2 ml 1X PRN PRN ID IV START; Start 10/13/16 at 12:30; Stop at 12:29 Hydromorphone HCl (Dilaudid) 0.5 mg PRN Q10MIN PRN IV SEV PAIN,Second choice; Start 10/13/16 at 12:30; Stop 10/14/16 at 12:29 Prochlorperazine Edisylate (Compazine) 5 mg PACU PRN PRN IV NAUSEA; Start 10/13 at 12:30; Stop 10/14/16 at 12:29 Vancomycin HCl 1 each 1 each 1X ONCE MC Last administered on 10/14/16t 05:09; Start 10/14/16 at 04:30; Stop 10/14/16 at 04:31; Status DC Propofol (Diprivan) 20 ml @ As Directed STK-MED ONCE IV ; Start 10/13/16 at 15: 07; Stop 10/13/16 at 15:08; Status DC Lidocaine HCl 5 ml 5 ml STK-MED ONCE .ROUTE ; Start 10/13/16 at 15:07; Stop at 15:08; Status DC Propofol (Diprivan) 20 ml @ As Directed STK-MED ONCE IV ; Start 10/13/16 at 18: 42; Stop 10/13/16 at 18:43; Status DC Lidocaine HCl 100 mg STK-MED ONCE .ROUTE ; Start 10/13/16 at 18:42; Stop at 18:43; Status DC Ondansetron HCl (Zofran) 4 mg STK-MED ONCE .ROUTE ; Start 10/13/16 at 19:16; Stop 10/13/16 at 19:17; Status DC Phenylephrine HCl 1 mg STK-MED ONCE IV ; Start 10/13/16 at 19:16; Stop 10/13/16 at 19:17; Status DC Sevoflurane (Ultane) 30 ml STK-MED ONCE IH ; Start 10/13/16 at 19:28; Stop 10/13 at 19:29; Status DC Dexamethasone Sodium Phosphate (Decadron) 20 mg STK-MED ONCE .ROUTE ; Start at 19:29; Stop 10/13/16 at 19:30; Status DC Albuterol/ Ipratropium (Duoneb) 3 ml 1X ONCE NEB Last administered on 03:45; Start 10/14/16 at 03:45; Stop 10/14/16 at 03:46; Status DC Furosemide 20 mg 20 mg 1X ONCE IVP Last administered on 10/14/16 05:26; Start 10/14/16 at 05:15; Stop 10/14/16 at 05:16; Status DC Vancomycin HCl/ Sodium Chloride (Iv Sodium Chloride 0.9% 250ml) 250 ml @ 250 mls/hr Q12H IV Last administered on 10/14/16 06:28; Start 10/14/16 at 06:00 Vancomycin HCl 1 each 1X ONCE MC ; Start 10/15/16 at 17:30; Stop 10/15/16 at 17 :31 Active Scripts Active Reported Isopto Tears (Hypromellose) 15 Ml Drops 15 Ml OP Oxycodone Hcl 10 Mg Tablet 1 Tab PO QID Ocuvite Tablet (Vit A,C & E/Lutein/Minerals) 1 Each Tablet 1 Each PO Dulcolax (Bisacodyl) 10 Mg Supp.rect 10 Mg RC PRN DAILY PRN Milk Of Magnesia (Magnesium Hydroxide) 400 Mg/5 Ml Oral.susp 400 Mg PO Simvastatin 20 Mg Tablet 1 Tab PO QHS Refresh Optive Eye Drops (Carboxymethylcellulos/Glycerin) 15 Ml Drops 1 Drop EACHEYE BID Tamsulosin Hcl 0.4 Mg Cap.er.24h 1 Cap PO DAILY Potassium Chloride Oral Liquid (Potassium Chloride) 20 Meq/15 Ml Liquid 10 Meq PEG DAILY Aspir 81 (Aspirin) 81 Mg Tablet.dr 1 Tab PO DAILY Furosemide 40 Mg Tablet 1 Tab PO DAILY Meloxicam 7.5 Mg Tablet 1 Tab PO DAILY Trazodone Hcl 50 Mg Tablet 1 Tab PO QHS Mucinex (Guaifenesin) 600 Mg Tablet.er 600 Mg PO Vitals/I & O Vital Sign - Last 24 Hours 10/13/16 10/13/16 10/13/16 10/13/16 11:00 15:02 15:05 15:06 Temp 98.6 98.2 98.6 98.2 Pulse 91 84 91 Resp B/P 132/79 Pulse Ox 98 98 98 O2 Delivery Venturi Mask Mask Simple Mask O2 Flow Rate 15.0 15 15 10/13/16 10/13/16 10/13/16 10/13/16 16:10 16:22 16:30 18:22 Temp 97.9 97.9 98.3 97.9 97.9 98.3 Pulse 81 87 77 90 Resp B/P 151/56 148/77 130/56 155/64 Pulse Ox 96 97 98 97 O2 Delivery Simple Mask Simple Mask Venturi Mask Nasal Cannula O2 Flow Rate 15 15 10 4 10/13/16 10/13/16 10/13/16 10/13/16 19:49 19:49 20:04 20:23 Temp 99.0 99.0 Pulse 110 112 104 Resp B/P 114/52 149/61 138/56 Pulse Ox 99 95 98 O2 Delivery Venturi Mask Venturi Mask Simple Mask Venturi Mask O2 Flow Rate 15 15 10 15 10/13/16 10/13/16 10/13/16 10/13/16 20:38 20:53 21:08 21:31 Temp 98.3 98.3 Pulse 105 104 104 104 Resp B/P 145/57 130/57 134/57 162/64 Pulse Ox 93 94 92 93 O2 Delivery Venturi Mask Venturi Mask Venturi Mask O2 Flow Rate 15 15 15 15 3/14/17 10/13/16 10/13/16 10/14/16 21:46 22:35 23:30 03:30 Temp 99.0 97.9 98.5 99.0 97.9 98.5 Pulse 105 101 95 Resp 20 24 23 B/P 138/63 150/58 99/48 Pulse Ox 98 94 93 O2 Delivery Venturi Mask Venturi Mask BiPAP/CPAP Venturi Mask O2 Flow Rate 15 15.0 14.0 15.0 10/14/16 10/14/16 10/14/16 10/14/16 03:58 07:00 08:21 08:22 Temp 98.4 98.4 Pulse 88 97 Resp 22 22 B/P 115/50 Pulse Ox 94 97 98 O2 Delivery Venturi Mask Venturi Mask Venturi Mask O2 Flow Rate 15.0 Intake and Output 10/13/16 10/13/16 10/14/16 15:00 23:00 07:00 Intake Total 1100 ml Output Total 2225 ml 480 ml Balance -1125 ml -480 ml RODRIGUE MAYNARD MD Oct 14, 2016 10:01
[2016-10-14] MEDS ORDERED: FUROSEMIDE 40 MG/4 ML VIAL IVP ONE (10:30)
--- NOTE | 2016-10-14 10:57 | PDOC ---
PULMONARY PROGRESS NOTES Subjective PT HAD INCREASE RESP DISTRESS NOW ON BIPAP Vitals Vital Signs Date Time Temp Pulse Resp B/P Pulse Ox O2 Delivery O2 Flow Rate FiO2 10/14/16 10:50 100 BiPAP/CPAP 10/14/16 08:22 97 10/14/16 08:21 22 15.0 10/14/16 07:00 98.4 115/50 98.4 Lungs: Crackles Cardiovascular: S1, S2 Abdomen: Soft, Non-tender Neuro Exam: Alert Extremities: Other (1+edema) Skin: Warm Labs Laboratory Tests Test 10/13/16 04:10 10/14/16 05:00 White Blood Count 12.1x10^3/uL (4.0-11.0) 13.4x10^3/uL (4.0-11.0) Red Blood Count 3.18x10^6/uL (4.30-5.70) 3.26x10^6/uL (4.30-5.70) Hemoglobin 9.6g/dL (13.0-17.5) 10.4g/dL (13.0-17.5) Hematocrit 29.5% (39.0-53.0) 30.2% (39.0-53.0) Mean Corpuscular Volume 93fL (79-100) 93fL (79-100) Mean Corpuscular Hemoglobin 30pg (25-35) 32pg (25-35) Mean Corpuscular Hemoglobin Concent 33g/dL (31-37) 34g/dL (31-37) Red Cell Distribution Width 14.2% (11.5-14.5) 14.6% (11.5-14.5) Platelet Count 231x10^3/uL (140-400) 313x10^3/uL (140-400) Neutrophils (%) (Auto) 69% (31-73) 91% (31-73) Lymphocytes (%) (Auto) 12% (24-48) 4% (24-48) Monocytes (%) (Auto) 7% (0-9) 4% (0-9) Eosinophils (%) (Auto) 11% (0-3) 0% (0-3) Basophils (%) (Auto) 1% (0-3) 0% (0-3) Neutrophils # (Auto) 8.3x10^3uL (1.8-7.7) 12.3x10^3uL (1.8-7.7) Lymphocytes # (Auto) 1.5x10^3/uL (1.0-4.8) 0.6x10^3/uL (1.0-4.8) Monocytes # (Auto) 0.9x10^3/uL (0.0-1.1) 0.6x10^3/uL (0.0-1.1) Eosinophils # (Auto) 1.3x10^3/uL (0.0-0.7) 0.0x10^3/uL (0.0-0.7) Basophils # (Auto) 0.1x10^3/uL (0.0-0.2) 0.0x10^3/uL (0.0-0.2) Sodium Level 140mmol/L (136-145) 143mmol/L (136-145) Potassium Level 4.2mmol/L (3.5-5.1) 4.7mmol/L (3.5-5.1) Chloride Level 104mmol/L (98-107) 104mmol/L (98-107) Carbon Dioxide Level 36mmol/L (21-32) 36mmol/L (21-32) Anion Gap 0 (6-14) 3 (6-14) Blood Urea Nitrogen 17mg/dL (8-26) 21mg/dL (8-26) Creatinine 0.7mg/dL (0.7-1.3) 1.0mg/dL (0.7-1.3) Estimated GFR (Cockcroft-Gault) 109.9 72.8 Glucose Level 89mg/dL (70-99) 156mg/dL (70-99) Calcium Level 8.4mg/dL (8.5-10.1) 8.7mg/dL (8.5-10.1) Vancomycin Level Trough 21.5mcg/mL (10.0-20.0) Vancomycin Last Dose Date 10/13/16 Vancomycin Last Dose Time 1700 Laboratory Tests Test 10/14/16 05:00 White Blood Count 13.4x10^3/uL (4.0-11.0) Red Blood Count 3.26x10^6/uL (4.30-5.70) Hemoglobin 10.4g/dL (13.0-17.5) Hematocrit 30.2% (39.0-53.0) Mean Corpuscular Volume 93fL (79-100) Mean Corpuscular Hemoglobin 32pg (25-35) Mean Corpuscular Hemoglobin Concent 34g/dL (31-37) Red Cell Distribution Width 14.6% (11.5-14.5) Platelet Count 313x10^3/uL (140-400) Neutrophils (%) (Auto) 91% (31-73) Lymphocytes (%) (Auto) 4% (24-48) Monocytes (%) (Auto) 4% (0-9) Eosinophils (%) (Auto) 0% (0-3) Basophils (%) (Auto) 0% (0-3) Neutrophils # (Auto) 12.3x10^3uL (1.8-7.7) Lymphocytes # (Auto) 0.6x10^3/uL (1.0-4.8) Monocytes # (Auto) 0.6x10^3/uL (0.0-1.1) Eosinophils # (Auto) 0.0x10^3/uL (0.0-0.7) Basophils # (Auto) 0.0x10^3/uL (0.0-0.2) Sodium Level 143mmol/L (136-145) Potassium Level 4.7mmol/L (3.5-5.1) Chloride Level 104mmol/L (98-107) Carbon Dioxide Level 36mmol/L (21-32) Anion Gap 3 (6-14) Blood Urea Nitrogen 21mg/dL (8-26) Creatinine 1.0mg/dL (0.7-1.3) Estimated GFR (Cockcroft-Gault) 72.8 Glucose Level 156mg/dL (70-99) Calcium Level 8.7mg/dL (8.5-10.1) Vancomycin Level Trough 21.5mcg/mL (10.0-20.0) Vancomycin Last Dose Date 10/13/16 Vancomycin Last Dose Time 1700 Medications Active Scripts Medications Dose Route/Sig Days Date Category Isopto Tears (Hypromellose) 15 Ml Drops 15 Ml OP 10/06/16 Reported Oxycodone Hcl 10 Mg Tablet 1 Tab PO QID 10/06/16 Reported Ocuvite Tablet (Vit A,C & E/Lutein/Minerals) 1 Each Tablet 1 Each PO 10/06/16 Reported Dulcolax (Bisacodyl) 10 Mg Supp.rect 10 Mg RC PRN DAILY PRN 10/06/16 Reported Milk Of Magnesia (Magnesium Hydroxide) 400 Mg/5 Ml Oral.susp 400 Mg PO 10/06/16 Reported Simvastatin 20 Mg Tablet 1 Tab PO QHS 10/06/16 Reported Refresh Optive Eye Drops (Carboxymethylcellulos/Glycerin) 15 Ml Drops 1 Drop EACHEYE BID 10/06/16 Reported Tamsulosin Hcl 0.4 Mg Cap.er.24h 1 Cap PO DAILY 10/06/16 Reported Potassium Chloride Oral Liquid (Potassium Chloride) 20 Meq/15 Ml Liquid 10 Meq PEG DAILY 10/06/16 Reported Aspir 81 (Aspirin) 81 Mg Tablet.dr 1 Tab PO DAILY 10/06/16 Reported Furosemide 40 Mg Tablet 1 Tab PO DAILY 10/06/16 Reported Meloxicam 7.5 Mg Tablet 1 Tab PO DAILY 10/06/16 Reported Trazodone Hcl 50 Mg Tablet 1 Tab PO QHS 10/06/16 Reported Mucinex (Guaifenesin) 600 Mg Tablet.er 600 Mg PO 10/06/16 Reported Impression . 1. Acute hypoxic respiratory failure, multifactorial on bipap 2. Questionable mild chronic obstructive pulmonary disease 3. Mild hyponatremia. Could be dilutional. 4. Abnormal chest x-ray with mild cardiomegaly and volume loss, left lower lobe. 5. History of coronary artery disease. 6. History of chronic percutaneous endoscopic gastrostomy tube. He uses enteral nutrition as well as oral nutrition. 7. Leukocytosis,/ fever, improved Plan . bipap repeat abg cxr 1. repeat abg on bipap 2. Ct chest with mild basal atelectasis 3. Continue broad-spectrum antibiotics per ID 4. repeat cxr 5. Nebulizer treatments as scheduled. 6. S/P Peg replacement on 10/13 MOMO HUERTAS MD Oct 14, 2016 10:57
[2016-10-14] MEDS: MICAFUNGIN 100 MG in IV DEXTROSE 5% 100 ML IV SCH (11:06)
--- NOTE | 2016-10-14 11:27 | PDOC ---
PROGRESS NOTES Assessment Problems Medical Problems: (1) Altered mental status Status: Acute (2) Hospital acquired PNA Status: Acute Metabolic encephalopathy. Dementia, Prior PEG, s/p new one yesterday No evidence of acute CVA Plan Continue treatment of infection, medical diseases Will follow Subjective none Objective Vital Signs Date Time Temp Pulse Resp B/P Pulse Ox O2 Delivery O2 Flow Rate FiO2 10/14/16 10:59 89 16 119/51 84 Venturi Mask 10/14/16 09:21 15.0 10/14/16 07:00 98.4 98.4 Intake and Output 10/14/16 07:00 Intake Total 1100 ml Output Total 2705 ml Balance -1605 ml Intake Oral 0 ml IV Total 1100 ml Tube Feeding 0 ml Output Urine Total 2705 ml # Bowel Movements 2 PHYSICAL EXAM Difficult to arouse, does tell me his name, follows a few commands PERRL. EOMI. CN: no focal findings. Muscle tone: normal. Muscle strength: not cooperative, moves all extremities DTR: 2+ Plantar reflex: flexor Gait: not examined in bed. Sensory exam: no abnormal findings. No cerebellar signs elicited. Review of Relevant I have reviewed the following items cassidy (where applicable) has been applied. Labs Laboratory Tests Test 10/13/16 04:10 10/14/16 05:00 White Blood Count 12.1x10^3/uL (4.0-11.0) 13.4x10^3/uL (4.0-11.0) Red Blood Count 3.18x10^6/uL (4.30-5.70) 3.26x10^6/uL (4.30-5.70) Hemoglobin 9.6g/dL (13.0-17.5) 10.4g/dL (13.0-17.5) Hematocrit 29.5% (39.0-53.0) 30.2% (39.0-53.0) Mean Corpuscular Volume 93fL (79-100) 93fL (79-100) Mean Corpuscular Hemoglobin 30pg (25-35) 32pg (25-35) Mean Corpuscular Hemoglobin Concent 33g/dL (31-37) 34g/dL (31-37) Red Cell Distribution Width 14.2% (11.5-14.5) 14.6% (11.5-14.5) Platelet Count 231x10^3/uL (140-400) 313x10^3/uL (140-400) Neutrophils (%) (Auto) 69% (31-73) 91% (31-73) Lymphocytes (%) (Auto) 12% (24-48) 4% (24-48) Monocytes (%) (Auto) 7% (0-9) 4% (0-9) Eosinophils (%) (Auto) 11% (0-3) 0% (0-3) Basophils (%) (Auto) 1% (0-3) 0% (0-3) Neutrophils # (Auto) 8.3x10^3uL (1.8-7.7) 12.3x10^3uL (1.8-7.7) Lymphocytes # (Auto) 1.5x10^3/uL (1.0-4.8) 0.6x10^3/uL (1.0-4.8) Monocytes # (Auto) 0.9x10^3/uL (0.0-1.1) 0.6x10^3/uL (0.0-1.1) Eosinophils # (Auto) 1.3x10^3/uL (0.0-0.7) 0.0x10^3/uL (0.0-0.7) Basophils # (Auto) 0.1x10^3/uL (0.0-0.2) 0.0x10^3/uL (0.0-0.2) Sodium Level 140mmol/L (136-145) 143mmol/L (136-145) Potassium Level 4.2mmol/L (3.5-5.1) 4.7mmol/L (3.5-5.1) Chloride Level 104mmol/L (98-107) 104mmol/L (98-107) Carbon Dioxide Level 36mmol/L (21-32) 36mmol/L (21-32) Anion Gap 0 (6-14) 3 (6-14) Blood Urea Nitrogen 17mg/dL (8-26) 21mg/dL (8-26) Creatinine 0.7mg/dL (0.7-1.3) 1.0mg/dL (0.7-1.3) Estimated GFR (Cockcroft-Gault) 109.9 72.8 Glucose Level 89mg/dL (70-99) 156mg/dL (70-99) Calcium Level 8.4mg/dL (8.5-10.1) 8.7mg/dL (8.5-10.1) Vancomycin Level Trough 21.5mcg/mL (10.0-20.0) Vancomycin Last Dose Date 10/13/16 Vancomycin Last Dose Time 1700 Laboratory Tests Test 10/14/16 05:00 White Blood Count 13.4x10^3/uL (4.0-11.0) Red Blood Count 3.26x10^6/uL (4.30-5.70) Hemoglobin 10.4g/dL (13.0-17.5) Hematocrit 30.2% (39.0-53.0) Mean Corpuscular Volume 93fL (79-100) Mean Corpuscular Hemoglobin 32pg (25-35) Mean Corpuscular Hemoglobin Concent 34g/dL (31-37) Red Cell Distribution Width 14.6% (11.5-14.5) Platelet Count 313x10^3/uL (140-400) Neutrophils (%) (Auto) 91% (31-73) Lymphocytes (%) (Auto) 4% (24-48) Monocytes (%) (Auto) 4% (0-9) Eosinophils (%) (Auto) 0% (0-3) Basophils (%) (Auto) 0% (0-3) Neutrophils # (Auto) 12.3x10^3uL (1.8-7.7) Lymphocytes # (Auto) 0.6x10^3/uL (1.0-4.8) Monocytes # (Auto) 0.6x10^3/uL (0.0-1.1) Eosinophils # (Auto) 0.0x10^3/uL (0.0-0.7) Basophils # (Auto) 0.0x10^3/uL (0.0-0.2) Sodium Level 143mmol/L (136-145) Potassium Level 4.7mmol/L (3.5-5.1) Chloride Level 104mmol/L (98-107) Carbon Dioxide Level 36mmol/L (21-32) Anion Gap 3 (6-14) Blood Urea Nitrogen 21mg/dL (8-26) Creatinine 1.0mg/dL (0.7-1.3) Estimated GFR (Cockcroft-Gault) 72.8 Glucose Level 156mg/dL (70-99) Calcium Level 8.7mg/dL (8.5-10.1) Vancomycin Level Trough 21.5mcg/mL (10.0-20.0) Vancomycin Last Dose Date 10/13/16 Vancomycin Last Dose Time 1700 Microbiology 10/10/16 Blood Culture - Preliminary, Resulted NO GROWTH AFTER 3 DAYS 10/05/16 Urine Culture - Final, Complete 10/05/16 Urine Culture Result 1 (JABARI) - Final, Complete 10/13/16 Gram Stain - Final, Complete Medications Current Medications Albuterol/ Ipratropium (Duoneb) 3 ml 1X ONCE NEB Last administered on 22:21; Start 10/05/16 at 22:15; Stop 10/05/16 at 22:50; Status DC Ondansetron HCl 4 mg 4 mg PRN Q8HRS PRN IV NAUSEA/VOMITING; Start 10/05/16 at 23 :00; Stop 10/06/16 at 22:59; Status DC Sodium Chloride (Iv Sodium Chloride 0.9% 1000ml Bag) 1,000 ml @ 100 mls/hr Q10H IV Last administered on 10/06/16 18:59; Start 10/05/16 at 22:59; Stop at 22:58; Status DC Albuterol/ Ipratropium 3 ml 3 ml RTQID NEB Last administered on 10/07/16 07:47 ; Start 10/06/16 at 08:00; Stop 10/07/16 at 07:59; Status DC Ceftriaxone Sodium 1 gm/ Sodium Chloride 50 ml @ 100 mls/hr Q24H IV ; Start 10/06/16 at 22:00; Stop 10/06/16 at 22:00; Status DC Levofloxacin/ Dextrose (LEVAQUIN 750mg PREMIX) 150 ml @ 100 mls/hr 1X ONCE IV Last administered on 10/06/16 01:05; Start 10/05/16 at 23:30; Stop 10/06/16 at 00:59; Status DC Vancomycin HCl 1 each 1 each PRN DAILY PRN MC SEE COMMENTS Last administered on 10/07/16 14:14; Start 10/05/16 at 23:00; Stop 10/08/16 at 18:52; Status DC Ceftriaxone Sodium 50 ml @ 100 mls/hr 1X ONCE IV Last administered on 01:05; Start 10/05/16 at 23:30; Stop 10/05/16 at 23:59; Status DC Vancomycin HCl 2 gm/Sodium Chloride 500 ml @ 250 mls/hr 1X ONCE IV Last administered on 10/05/16 23:26; Start 10/06/16 at 00:00; Stop 10/06/16 at 01:59; Status DC Vancomycin HCl/ Sodium Chloride (Iv Sodium Chloride 0.9% 250ml) 250 ml @ 167 mls/hr Q12H IV Last administered on 10/08/16 13:20; Start 10/06/16 at 12:00; Stop 10/08/16 at 18:52; Status DC Vancomycin HCl 1 each 1 each 1X ONCE MC ; Start 10/07/16 at 11:30; Stop 10/07/16 at 11:31; Status DC Piperacillin Sod/ Tazobactam Sod/ Sodium Chloride (Zosyn/Iv Sodium Chloride 0.9 % 50ml) 50 ml @ 100 mls/hr Q6HRS IV Last administered on 10/06/16 11:56; Start 10/06/16 at 11:00; Stop 10/06/16 at 15:24; Status DC Piperacillin Sod/ Tazobactam Sod (Zosyn Per Pharmacy) 1 each PRN DAILY PRN MC SEE COMMENTS; Start 10/06/16 at 10:15 Aspirin (Ecotrin) 81 mg DAILY PO ; Start 10/06/16 at 11:30; Stop 10/06/16 at 11:30 ; Status DC Bisacodyl (Dulcolax Supp) 10 mg PRN DAILY PRN RC CONSTIPATION; Start 10/06/16 at 10:15 Furosemide (Lasix) 40 mg DAILY PO Last administered on 10/12/16 07:53; Start 10/06/16 at 11:30 Guaifenesin (Mucinex) 600 mg BID PO ; Start 10/06/16 at 11:30; Stop 10/06/16 at 11 :30; Status DC Potassium Chloride (KCl Oral Soln) 10 meq DAILY PEG Last administered on 08:18; Start 10/06/16 at 11:30 Simvastatin (Zocor) 20 mg QHS PO Last administered on 10/14/16 00:13; Start at 21:00 Tamsulosin HCl (Flomax) 0.4 mg DAILY PO Last administered on 10/07/16 08:58; Start 10/06/16 at 11:30; Stop 10/08/16 at 10:18; Status DC Multivitamins/ Minerals (Ocuvite Lutein) 1 cap DAILY PO Last administered on 07:53; Start 10/06/16 at 11:00 Artificial Tears (Artificial Tears) 1 drop PRN BID PRN OU DRY EYE Last administered on 10/11/16 08:39; Start 10/06/16 at 10:30 Aspirin (Children'S Aspirin) 81 mg DAILYWBKFT PO Last administered on 10/08/16 09:00; Start 10/06/16 at 11:30; Stop 10/08/16 at 11:31; Status DC Guaifenesin (Robitussin) 200 mg QID PO Last administered on 10/14/16 08:23; Start 10/06/16 at 11:30 Furosemide (Lasix) 40 mg 1X ONCE IVP Last administered on 10/06/16 12:01; Start 10/06/16 at 12:00; Stop 10/06/16 at 12:01; Status DC Acetaminophen (Tylenol) 650 mg PRN Q6HRS PRN PEG MILD PAIN / TEMP Last administered on 10/10/16 09:42; Start 10/06/16 at 12:15 Ondansetron HCl (Zofran) 4 mg PRN Q6HRS PRN IV NAUSEA/VOMITING; Start 10/06/16 at 12:15 Enoxaparin Sodium (Lovenox 40mg Syringe) 40 mg Q24H SQ Last administered on 11:22; Start 10/06/16 at 13:00 Nystatin 1 alejandro 1 alejandro BID TP Last administered on 10/14/16 00:15; Start at 14:30 Piperacillin Sod/ Tazobactam Sod/ Sodium Chloride (Zosyn/Iv Sodium Chloride 0.9 % 100ml) 100 ml @ 200 mls/hr Q6HRS IV Last administered on 10/14/16 05:31; Start 10/06/16 at 18:00 Meloxicam (Mobic) 7.5 mg DAILY PO Last administered on 10/14/16 08:22; Start 10/07/16 at 10:00 Acetaminophen/ Hydrocodone Bitart (Lortab 5/325) 1 tab PRN Q4HRS PRN PO MODERATE - SEVERE PAIN Last administered on 10/14/16 08:21; Start 10/07/16 at 10 :45 Furosemide (Lasix) 20 mg 1X ONCE IVP Last administered on 10/07/16 18:24; Start 10/07/16 at 12:00; Stop 10/07/16 at 12:01; Status DC Digoxin 500 mcg 500 mcg 1X ONCE IV Last administered on 10/07/16 22:38; Start 10/07/16 at 22:15; Stop 10/07/16 at 22:17; Status DC Micafungin Sodium/ Dextrose (Mycamine) 100 ml @ 100 mls/hr Q24H IV Last administered on 10/14/16 11:06; Start 10/08/16 at 09:00 Iohexol (Omnipaque 240 Mg/ml) 30 ml 1X ONCE PO Last administered on 10/08/16 11:47; Start 10/08/16 at 09:15; Stop 10/08/16 at 09:18; Status DC Iohexol (Omnipaque 300 Mg/ml) 75 ml 1X ONCE IV Last administered on 10/08/16 11:46; Start 10/08/16 at 09:15; Stop 10/08/16 at 09:18; Status DC Finasteride (Proscar) 5 mg DAILY PO Last administered on 10/14/16 08:22; Start 10/09/16 at 09:00 Methylprednisolone Acetate (Depo-Medrol 40mg Vial) 40 mg 1X ONCE IM ; Start 10/08/16 at 10:45; Stop 10/08/16 at 10:53; Status DC Methylprednisolone Acetate (Depo-Medrol 40mg Vial) 40 mg 1X ONCE IM ; Start 10/08/16 at 10:45; Stop 10/08/16 at 10:53; Status DC Bupivacaine HCl (Sensorcaine-Mpf 0.25%) 10 ml 1X ONCE IJ ; Start 10/08/16 at 10: 45; Stop 10/08/16 at 10:53; Status DC Digoxin (Lanoxin) 125 mcg DAILY PO Last administered on 10/14/16 08:22; Start 10/08/16 at 11:30 Aspirin (Children'S Aspirin) 325 mg DAILYWBKFT PO Last administered on 12:38; Start 10/08/16 at 11:30; Stop 10/08/16 at 13:30; Status DC Lactobacillus Acidophilus (Bacid, Danielle-Bid) 1 tab DAILY PO Last administered on 10/14/16 08:18; Start 10/08/16 at 13:00 Aspirin (Children'S Aspirin) 324 mg DAILYWBKFT PO Last administered on 08:19; Start 10/08/16 at 13:30 Oxycodone/ Acetaminophen (Percocet 10/325) 1 tab PRN Q6HRS PRN PO PAIN Last administered on 10/12/16 15:39; Start 10/09/16 at 10:30 Furosemide (Lasix) 20 mg 1X ONCE IVP Last administered on 10/09/16 16:54; Start 10/09/16 at 15:00; Stop 10/09/16 at 15:01; Status DC Urea (Kaa[place] Lo 40, X-Viate) 1 alejandro DAILY TP Last administered on 10/12/16 07:55; Start 10/09/16 at 18:00 Nystatin 5 ml 5 ml [id number] Last administered on 10/14/16 08:23; Start 06/18 at 13:00 Potassium Chloride (KCl Premix 10meq) 100 ml @ 100 mls/hr Q1H IV Last administered on 10/10/16 17:00; Start 10/10/16 at 14:00; Stop 10/10/16 at 17:59 ; Status DC Vancomycin HCl 1 each 1 each PRN DAILY PRN MC SEE COMMENTS Last administered on 10/14/16 06:06; Start 10/10/16 at 14:45 Vancomycin HCl 2 gm/Sodium Chloride 500 ml @ 250 mls/hr 1X ONCE IV Last administered on 10/10/16 15:30; Start 10/10/16 at 15:30; Stop 10/10/16 at 17:29 ; Status DC Vancomycin HCl/ Sodium Chloride (Iv Sodium Chloride 0.9% 250ml) 250 ml @ 167 mls/hr Q12H IV Last administered on 10/13/16 17:43; Start 10/11/16 at 05:00; Stop 10/14/16 at 05:57; Status DC Ondansetron HCl (Zofran) 4 mg PRN Q6HRS PRN IV Nausea; Start 10/13/16 at 12:30 ; Stop 10/14/16 at 12:29 Fentanyl Citrate (Fentanyl 2ml Vial) 25 mcg PRN Q5MIN PRN IV MILD PAIN; Start 10/13/16 at 12:30; Stop 10/14/16 at 12:29 Fentanyl Citrate (Fentanyl 2ml Vial) 50 mcg PRN Q5MIN PRN IV MODERATE PAIN; Start 10/13/16 at 12:30; Stop 10/14/16 at 12:29 Morphine Sulfate 1 mg 1 mg PRN Q10MIN PRN IV SEVERE PAIN; Start 10/13/16 at 12: 30; Stop 10/14/16 at 12:29 Lactated Ringer's (Iv Lactated Ringers) 1,000 ml @ 0 mls/hr Q0M IV ; Start at 12:23; Stop 10/14/16 at 00:22; Status DC Lidocaine HCl 2 ml 1X PRN PRN ID IV START; Start 10/13/16 at 12:30; Stop at 12:29 Hydromorphone HCl (Dilaudid) 0.5 mg PRN Q10MIN PRN IV SEV PAIN,Second choice; Start 10/13/16 at 12:30; Stop 10/14/16 at 12:29 Prochlorperazine Edisylate (Compazine) 5 mg PACU PRN PRN IV NAUSEA; Start 10/13 at 12:30; Stop 10/14/16 at 12:29 Vancomycin HCl 1 each 1 each 1X ONCE MC Last administered on 10/14/16 05:09; Start 10/14/16 at 04:30; Stop 10/14/16 at 04:31; Status DC Propofol (Diprivan) 20 ml @ As Directed STK-MED ONCE IV ; Start 10/13/16 at 15: 07; Stop 10/13/16 at 15:08; Status DC Lidocaine HCl 5 ml 5 ml STK-MED ONCE .ROUTE ; Start 10/13/16 at 15:07; Stop at 15:08; Status DC Propofol (Diprivan) 20 ml @ As Directed STK-MED ONCE IV ; Start 10/13/16 at 18: 42; Stop 10/13/16 at 18:43; Status DC Lidocaine HCl 100 mg STK-MED ONCE .ROUTE ; Start 10/13/16 at 18:42; Stop at 18:43; Status DC Ondansetron HCl (Zofran) 4 mg STK-MED ONCE .ROUTE ; Start 10/13/16 at 19:16; Stop 10/13/16 at 19:17; Status DC Phenylephrine HCl 1 mg STK-MED ONCE IV ; Start 10/13/16 at 19:16; Stop 10/13/16 at 19:17; Status DC Sevoflurane (Ultane) 30 ml STK-MED ONCE IH ; Start 10/13/16 at 19:28; Stop 10/13 at 19:29; Status DC Dexamethasone Sodium Phosphate (Decadron) 20 mg STK-MED ONCE .ROUTE ; Start at 19:29; Stop 10/13/16 at 19:30; Status DC Albuterol/ Ipratropium (Duoneb) 3 ml 1X ONCE NEB Last administered on 03:45; Start 10/14/16 at 03:45; Stop 10/14/16 at 03:46; Status DC Furosemide 20 mg 20 mg 1X ONCE IVP Last administered on 10/14/16 05:26; Start 10/14/16 at 05:15; Stop 10/14/16 at 05:16; Status DC Vancomycin HCl/ Sodium Chloride (Iv Sodium Chloride 0.9% 250ml) 250 ml @ 250 mls/hr Q12H IV Last administered on 10/14/16 06:28; Start 10/14/16 at 06:00 Vancomycin HCl 1 each 1X ONCE MC ; Start 10/15/16 at 17:30; Stop 10/15/16 at 17 :31 Furosemide (Lasix) 40 mg 1X ONCE IVP Last administered on 3/15/17at 10:35; Start 10/14/16 at 10:30; Stop 10/14/16 at 10:31; Status DC Active Scripts Active Reported Isopto Tears (Hypromellose) 15 Ml Drops 15 Ml OP Oxycodone Hcl 10 Mg Tablet 1 Tab PO QID Ocuvite Tablet (Vit A,C & E/Lutein/Minerals) 1 Each Tablet 1 Each PO Dulcolax (Bisacodyl) 10 Mg Supp.rect 10 Mg RC PRN DAILY PRN Milk Of Magnesia (Magnesium Hydroxide) 400 Mg/5 Ml Oral.susp 400 Mg PO Simvastatin 20 Mg Tablet 1 Tab PO QHS Refresh Optive Eye Drops (Carboxymethylcellulos/Glycerin) 15 Ml Drops 1 Drop EACHEYE BID Tamsulosin Hcl 0.4 Mg Cap.er.24h 1 Cap PO DAILY Potassium Chloride Oral Liquid (Potassium Chloride) 20 Meq/15 Ml Liquid 10 Meq PEG DAILY Aspir 81 (Aspirin) 81 Mg Tablet.dr 1 Tab PO DAILY Furosemide 40 Mg Tablet 1 Tab PO DAILY Meloxicam 7.5 Mg Tablet 1 Tab PO DAILY Trazodone Hcl 50 Mg Tablet 1 Tab PO QHS Mucinex (Guaifenesin) 600 Mg Tablet.er 600 Mg PO Vitals/I & O Vital Sign - Last 24 Hours 10/13/16 10/13/16 10/13/16 10/13/16 15:02 15:05 15:06 16:10 Temp 98.2 97.9 98.2 97.9 Pulse 84 91 81 Resp 20 20 20 B/P 151/56 Pulse Ox 98 98 96 O2 Delivery Mask Simple Mask Simple Mask O2 Flow Rate 15 15 15 10/13/16 10/13/16 10/13/16 10/13/16 16:22 16:30 18:22 19:49 Temp 97.9 98.3 99.0 97.9 98.3 99.0 Pulse 87 77 90 110 Resp 22 28 20 24 B/P 148/77 130/56 155/64 114/52 Pulse Ox 97 98 97 99 O2 Delivery Simple Mask Venturi Mask Nasal Cannula Venturi Mask O2 Flow Rate 15 10 4 15 10/13/16 10/13/16 10/13/16 10/13/16 19:49 20:04 20:23 20:38 Pulse 112 104 105 Resp 22 22 20 B/P 149/61 138/56 145/57 Pulse Ox 95 98 93 O2 Delivery Venturi Mask Simple Mask Venturi Mask Venturi Mask O2 Flow Rate 15 10 15 15 10/13/16 10/13/16 10/13/16 10/13/16 20:53 21:08 21:31 21:46 Temp 98.3 99.0 98.3 99.0 Pulse 104 104 104 105 Resp 24 24 24 20 B/P 130/57 134/57 162/64 138/63 Pulse Ox 94 92 93 98 O2 Delivery Venturi Mask Venturi Mask Venturi Mask O2 Flow Rate 15 15 15 15 10/13/16 10/13/16 10/14/16 10/14/16 22:35 23:30 03:30 03:58 Temp 97.9 98.5 97.9 98.5 Pulse 101 95 Resp 24 23 B/P 150/58 99/48 Pulse Ox 94 93 94 O2 Delivery Venturi Mask BiPAP/CPAP Venturi Mask Venturi Mask O2 Flow Rate 15.0 14.0 15.0 10/14/16 10/14/16 10/14/16 10/14/16 07:00 08:21 08:22 09:21 Temp 98.4 98.4 Pulse 88 97 Resp 22 22 B/P 115/50 Pulse Ox 97 98 94 O2 Delivery Venturi Mask Venturi Mask Venturi Mask O2 Flow Rate 15.0 15.0 10/14/16 10/14/16 10/14/16 10:28 10:50 10:59 Pulse 89 Resp 16 B/P 119/58 119/51 Pulse Ox 100 84 O2 Delivery BiPAP/CPAP Venturi Mask Intake and Output 10/13/16 10/13/16 10/14/16 15:00 23:00 07:00 Intake Total 1100 ml Output Total 2225 ml 480 ml Balance -1125 ml -480 ml THELMA GUTIERREZ MD Oct 14, 2016 11:27
[2016-10-14 11:57] LABS: PLT ESTIMATE ADEQUATE (ADEQUATE)
[2016-10-14] MEDS: UREA 40% TOPICAL CREAM 28.3GM TUBE. TP SCH (12:49)
--- NOTE | 2016-10-14 13:06 | PDOC4 ---
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 It was requested by infectious disease that he have his gouty tophus washed out as a potential source for infection. Description of Procedure: The patient was identified, marked, and the procedure was reconfirmed by myself prior to taking them to the operating room. He was on IV antibiotics already. The patient was positioned appropriately and underwent adequate general anesthesia after a timeout was performed. The left arm was prepped and draped in a standard surgical fashion. A tourniquet was placed on the superior arm and inflated after exsanguination. The skin over the olecranon was incised and approx. 20 cc of seropurulent gouty material was expressed from the elbow. 2 cultures were sent. 6L of sterile saline were run through the area with low pressure irrigation. Then the area was debrided with a curette and a ronguer until the necrotic gouty nodules and tissue were removed and a viable, bleeding, healthy tissue bed was present. The wound was packed with 5.5 feet of iodoform gauze, hemostasis was achieved and the incision was reapproximated with 2-0 nylon sutures. Disposition: The patient was taken to the recovery room awake and in stable condition. Complications: None Post-operative Plan: will dc half the packing daily over the next few days, fu cultures. SHEYLA BAJWA MD Oct 14, 2016 13:06
--- NOTE | 2016-10-14 13:10 | PDOC ---
PROGRESS NOTES Subjective Subjective Problems overnight: Pt with no temps recorded so I am not sure if he has been febrile. Wbc increased since surgery yesterday. The patient will not answer questions regarding pain in his elbow. He is currently on bipap due to respiratory distress. Objective Vital Signs Vital Signs Date Time Temp Pulse Resp B/P Pulse Ox O2 Delivery O2 Flow Rate FiO2 10/14/16 12:27 100 BiPAP/CPAP 10/14/16 10:59 89 16 119/51 10/14/16 09:21 15.0 10/14/16 07:00 98.4 98.4 Physical Exam LUE: dressing c/d/i. removed. 2.5 feet of gauze was removed from the incision. the elbow was redressed with xeroform, soft roll, and an shanique bandage. grossly moving his hand. 2+ radial pulse. Labs Laboratory Tests Test 10/13/16 04:10 10/14/16 05:00 White Blood Count 12.1x10^3/uL (4.0-11.0) 13.4x10^3/uL (4.0-11.0) Red Blood Count 3.18x10^6/uL (4.30-5.70) 3.26x10^6/uL (4.30-5.70) Hemoglobin 9.6g/dL (13.0-17.5) 10.4g/dL (13.0-17.5) Hematocrit 29.5% (39.0-53.0) 30.2% (39.0-53.0) Mean Corpuscular Volume 93fL (79-100) 93fL (79-100) Mean Corpuscular Hemoglobin 30pg (25-35) 32pg (25-35) Mean Corpuscular Hemoglobin Concent 33g/dL (31-37) 34g/dL (31-37) Red Cell Distribution Width 14.2% (11.5-14.5) 14.6% (11.5-14.5) Platelet Count 231x10^3/uL (140-400) 313x10^3/uL (140-400) Neutrophils (%) (Auto) 69% (31-73) 91% (31-73) Lymphocytes (%) (Auto) 12% (24-48) 4% (24-48) Monocytes (%) (Auto) 7% (0-9) 4% (0-9) Eosinophils (%) (Auto) 11% (0-3) 0% (0-3) Basophils (%) (Auto) 1% (0-3) 0% (0-3) Neutrophils # (Auto) 8.3x10^3uL (1.8-7.7) 12.3x10^3uL (1.8-7.7) Lymphocytes # (Auto) 1.5x10^3/uL (1.0-4.8) 0.6x10^3/uL (1.0-4.8) Monocytes # (Auto) 0.9x10^3/uL (0.0-1.1) 0.6x10^3/uL (0.0-1.1) Eosinophils # (Auto) 1.3x10^3/uL (0.0-0.7) 0.0x10^3/uL (0.0-0.7) Basophils # (Auto) 0.1x10^3/uL (0.0-0.2) 0.0x10^3/uL (0.0-0.2) Sodium Level 140mmol/L (136-145) 143mmol/L (136-145) Potassium Level 4.2mmol/L (3.5-5.1) 4.7mmol/L (3.5-5.1) Chloride Level 104mmol/L (98-107) 104mmol/L (98-107) Carbon Dioxide Level 36mmol/L (21-32) 36mmol/L (21-32) Anion Gap 0 (6-14) 3 (6-14) Blood Urea Nitrogen 17mg/dL (8-26) 21mg/dL (8-26) Creatinine 0.7mg/dL (0.7-1.3) 1.0mg/dL (0.7-1.3) Estimated GFR (Cockcroft-Gault) 109.9 72.8 Glucose Level 89mg/dL (70-99) 156mg/dL (70-99) Calcium Level 8.4mg/dL (8.5-10.1) 8.7mg/dL (8.5-10.1) Segmented Neutrophils % 87% (35-66) Band Neutrophils % 6% (0-9) Lymphocytes % 3% (24-48) Monocytes % 2% (0-10) Myelocytes % 2% (0-0) Platelet Estimate Adequate (ADEQUATE) Vancomycin Level Trough 21.5mcg/mL (10.0-20.0) Vancomycin Last Dose Date 10/13/16 Vancomycin Last Dose Time 1700 Laboratory Tests Test 10/14/16 05:00 White Blood Count 13.4x10^3/uL (4.0-11.0) Red Blood Count 3.26x10^6/uL (4.30-5.70) Hemoglobin 10.4g/dL (13.0-17.5) Hematocrit 30.2% (39.0-53.0) Mean Corpuscular Volume 93fL (79-100) Mean Corpuscular Hemoglobin 32pg (25-35) Mean Corpuscular Hemoglobin Concent 34g/dL (31-37) Red Cell Distribution Width 14.6% (11.5-14.5) Platelet Count 313x10^3/uL (140-400) Neutrophils (%) (Auto) 91% (31-73) Lymphocytes (%) (Auto) 4% (24-48) Monocytes (%) (Auto) 4% (0-9) Eosinophils (%) (Auto) 0% (0-3) Basophils (%) (Auto) 0% (0-3) Neutrophils # (Auto) 12.3x10^3uL (1.8-7.7) Lymphocytes # (Auto) 0.6x10^3/uL (1.0-4.8) Monocytes # (Auto) 0.6x10^3/uL (0.0-1.1) Eosinophils # (Auto) 0.0x10^3/uL (0.0-0.7) Basophils # (Auto) 0.0x10^3/uL (0.0-0.2) Segmented Neutrophils % 87% (35-66) Band Neutrophils % 6% (0-9) Lymphocytes % 3% (24-48) Monocytes % 2% (0-10) Myelocytes % 2% (0-0) Platelet Estimate Adequate (ADEQUATE) Sodium Level 143mmol/L (136-145) Potassium Level 4.7mmol/L (3.5-5.1) Chloride Level 104mmol/L (98-107) Carbon Dioxide Level 36mmol/L (21-32) Anion Gap 3 (6-14) Blood Urea Nitrogen 21mg/dL (8-26) Creatinine 1.0mg/dL (0.7-1.3) Estimated GFR (Cockcroft-Gault) 72.8 Glucose Level 156mg/dL (70-99) Calcium Level 8.7mg/dL (8.5-10.1) Vancomycin Level Trough 21.5mcg/mL (10.0-20.0) Vancomycin Last Dose Date 10/13/16 Vancomycin Last Dose Time 1700 Assessment Assessment POD# 1, S/P I &D and packing of his left olecranon Problems: (1) Gouty arthropathy, chronic, with tophi Plan Plan of Care Half the packing was removed, more fluid was expressed from the elbow, looks like bloody gouty fluid. I will continue to dc half the packing each day. As long as he does not reaccumulate any swelling or purulence in the area will remove the sutures in 10 days in my office. fu cultures antibiotics per SHEYLA MANNING MD Oct 14, 2016 13:10
--- NOTE | 2016-10-14 13:18 | PDOC ---
Subjective: Subjective: Per family - "out of it" Objective: Objective: Transferred to [facility] w/ resp issues. No PEG issues per RN. Vital Signs: Vital Signs Date Time Temp Pulse Resp B/P Pulse Ox O2 Delivery O2 Flow Rate FiO2 10/14/16 12:27 100 BiPAP/CPAP 10/14/16 10:59 89 16 119/51 10/14/16 09:21 15.0 10/14/16 07:00 98.4 98.4 Labs: Laboratory Tests Test 10/14/16 05:00 White Blood Count 13.4x10^3/uL Red Blood Count 3.26x10^6/uL Hemoglobin 10.4g/dL Hematocrit 30.2% Mean Corpuscular Volume 93fL Mean Corpuscular Hemoglobin 32pg Mean Corpuscular Hemoglobin Concent 34g/dL Red Cell Distribution Width 14.6% Platelet Count 313x10^3/uL Neutrophils (%) (Auto) 91% Lymphocytes (%) (Auto) 4% Monocytes (%) (Auto) 4% Eosinophils (%) (Auto) 0% Basophils (%) (Auto) 0% Neutrophils # (Auto) 12.3x10^3uL Lymphocytes # (Auto) 0.6x10^3/uL Monocytes # (Auto) 0.6x10^3/uL Eosinophils # (Auto) 0.0x10^3/uL Basophils # (Auto) 0.0x10^3/uL Segmented Neutrophils % 87% Band Neutrophils % 6% Lymphocytes % 3% Monocytes % 2% Myelocytes % 2% Platelet Estimate Adequate Sodium Level 143mmol/L Potassium Level 4.7mmol/L Chloride Level 104mmol/L Carbon Dioxide Level 36mmol/L Anion Gap 3 Blood Urea Nitrogen 21mg/dL Creatinine 1.0mg/dL Estimated GFR (Cockcroft-Gault) 72.8 Glucose Level 156mg/dL Calcium Level 8.7mg/dL Vancomycin Level Trough 21.5mcg/mL Vancomycin Last Dose Date 10/13/16 Vancomycin Last Dose Time 1700 PE: GEN: NAD LUNGS: BiPAP HEART: S1S2 ABD: PEG in place, BS+, soft NEURO/PSYCH: does not awaken during exam A/P: PEG tube displacement - replaced 10/13/16 -additional history of placement at [facility] about 3 weeks ago for "refusing to eat" -failed swallow eval here Encephalopathy, leukocytosis, resp failure -- PEG functioning. ?abd RADHA Orosco Oct 14, 2016 13:18
--- NOTE | 2016-10-14 13:58 | PDOC ---
PROGRESS NOTES Chief Complaint Chief Complaint 1. CHF: systolic (hx EF 50%), acute on chronic: IV lasis for pulm sx. BiPAP PRN. nebs, suppl O2. rpt CXR, ABG in AM 2. AMS: metabolic encephalopathy likely 2/2 hypoxia, poss sedative meds in rehab; at recent [facility] admit, had hallucinations 3. Afib w/ RVR: resolved, back in NSR 4. Hx CAD with CABG: no acute issues; cont home meds 5. HTN: well controlled 6. HLD: on statin 7. 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 AAA: 4cm, stable 9. Dysphagia: PEG placement 10/[address] Hammond. TF started 10. L olecranon abscess/gouty tophus: s/p I&D on 10/[address] Calderon. wound care as per surg. on canco/Zosyn 11. Gout 12. OA: on Mobic 13. BPH: Sinclair in CCU 14. Dementia: mild at baseline. unable to eval with current sedation Vitals Vitals Vital Signs Date Time Temp Pulse Resp B/P Pulse Ox O2 Delivery O2 Flow Rate FiO2 10/14/16 12:27 100 BiPAP/CPAP 10/14/16 10:59 89 16 119/51 10/14/16 09:21 15.0 10/14/16 07:00 98.4 98.4 Physical Exam General: No acute distress, Other (lethargic, on BiPAP) Heart: Regular rate, Normal S1, Normal S2 Lungs: Other (rhonchi) Abdomen: Soft, No tenderness, Other (ND, sinclair cath was placed in as Peg was pulled out, air in the peritoneum noticed ) Extremities: No clubbing, No cyanosis Skin: Other (has skin brusies and dressing on right great toe, gouty inflammation on left elbow) Labs LABS Laboratory Tests Test 10/14/16 05:00 White Blood Count 13.4x10^3/uL (4.0-11.0) Red Blood Count 3.26x10^6/uL (4.30-5.70) Hemoglobin 10.4g/dL (13.0-17.5) Hematocrit 30.2% (39.0-53.0) Mean Corpuscular Volume 93fL (79-100) Mean Corpuscular Hemoglobin 32pg (25-35) Mean Corpuscular Hemoglobin Concent 34g/dL (31-37) Red Cell Distribution Width 14.6% (11.5-14.5) Platelet Count 313x10^3/uL (140-400) Neutrophils (%) (Auto) 91% (31-73) Lymphocytes (%) (Auto) 4% (24-48) Monocytes (%) (Auto) 4% (0-9) Eosinophils (%) (Auto) 0% (0-3) Basophils (%) (Auto) 0% (0-3) Neutrophils # (Auto) 12.3x10^3uL (1.8-7.7) Lymphocytes # (Auto) 0.6x10^3/uL (1.0-4.8) Monocytes # (Auto) 0.6x10^3/uL (0.0-1.1) Eosinophils # (Auto) 0.0x10^3/uL (0.0-0.7) Basophils # (Auto) 0.0x10^3/uL (0.0-0.2) Segmented Neutrophils % 87% (35-66) Band Neutrophils % 6% (0-9) Lymphocytes % 3% (24-48) Monocytes % 2% (0-10) Myelocytes % 2% (0-0) Platelet Estimate Adequate (ADEQUATE) Sodium Level 143mmol/L (136-145) Potassium Level 4.7mmol/L (3.5-5.1) Chloride Level 104mmol/L (98-107) Carbon Dioxide Level 36mmol/L (21-32) Anion Gap 3 (6-14) Blood Urea Nitrogen 21mg/dL (8-26) Creatinine 1.0mg/dL (0.7-1.3) Estimated GFR (Cockcroft-Gault) 72.8 Glucose Level 156mg/dL (70-99) Calcium Level 8.7mg/dL (8.5-10.1) Vancomycin Level Trough 21.5mcg/mL (10.0-20.0) Vancomycin Last Dose Date 10/13/16 Vancomycin Last Dose Time 1700 Review of Systems Review of Systems minimally responsive to verbal input, BiPAP in place IVY PAYTON MD Oct 14, 2016 13:58
[2016-10-14 14:19] LABS: HCO3 ABG 32 mmol/L (21-28); PCO2 ABG 67 mmHg (35-46); PH ABG 7.29 (7.35-7.45); PO2 ABG 77 mmHg (65-108)
[2016-10-14 14:20] LABS: FIO2 ABG 50%; SAT O2 ABG 93 % (92-99)
[2016-10-14] MEDS: ENOXAPARIN 40 MG/0.4 ML DISP.SYRIN. SQ SCH (14:34)
[2016-10-14 17:47] LABS: HCO3 ABG 36 mmol/L (21-28); PH ABG 7.36 (7.35-7.45); SAT O2 ABG 80 % (92-99)
[2016-10-14 17:48] LABS: HCO3 ABG 35 mmol/L (21-28); PH ABG 7.34 (7.35-7.45); PO2 ABG 66 mmHg (65-108); SAT O2 ABG 92 % (92-99)
[2016-10-14 17:51] LABS: FIO2 ABG 50%
[2016-10-14 17:52] LABS: PCO2 ABG 66 mmHg (35-46)
[2016-10-14 17:52] LABS: FIO2 ABG 50%; PCO2 ABG 66 mmHg (35-46); PO2 ABG 43 mmHg (65-108)
[2016-10-14] MEDS: OXYCODONE/APAP 10/325 TABLET. PO PRN (22:16)
[2016-10-15] MEDS: PIPERACILLIN/TAZOBACTAM 4.5 GM in IV NORMAL SALINE 100ML 100 ML IV SCH ×4 (00:33→18:17)
[2016-10-15 03:08] VITALS: BP 108/44
[2016-10-15] MEDS ORDERED: ALTEPLASE 2 MG VIAL INT CAT ONE (05:30)
[2016-10-15 07:00] VITALS: BP 143/59
--- NOTE | 2016-10-15 07:05 | PDOC ---
Infectious Disease Note Subjective Subjective Doing ok but backside hurts from sitting on it so long Arm ok ROS ROS GEN: Denies fevers, chills, sweats HEENT: Denies blurred vision, sore throat CV: Denies chest pain RESP: Denies shortness of air, cough GI: Denies n/v/d NEURO: Denies confusion, dizziness MSK: Denies weakness, joint pain/swelling Vital Sign Vital Signs Vital Signs Date Time Temp Pulse Resp B/P Pulse Ox O2 Delivery O2 Flow Rate FiO2 10/15/16 03:08 98.2 67 20 108/44 99 BiPAP/CPAP 98.2 10/14/16 22:16 15.0 Physical Exam PHYSICAL EXAM GENERAL: NAD, pleasant HEENT: PERRLA, Oral cavity less dry LUNGS: CTA HEART: S1S2 ABD: Obese, soft, No guarding to palpation. : [place]. Scrotal swelling EXT: BLE edema. . Left great toe bandaged. Left elbow dressed SHIRT MARKER: Alert, coop. Sucking on swab SKIN: No rash IV: PICC RUE Labs Lab Laboratory Tests Test 10/14/16 09:54 10/14/16 16:37 10/14/16 17:32 O2 Saturation 93% (92-99) 80% (92-99) 92% (92-99) Arterial Blood pH 7.29 (7.35-7.45) 7.36 (7.35-7.45) 7.34 (7.35-7.45) Arterial Blood pCO2 at Patient Temp 67mmHg (35-46) 66mmHg (35-46) 66mmHg (35-46) Arterial Blood pO2 at Patient Temp 77mmHg (65-108) 43mmHg (65-108) 66mmHg (65-108) Arterial Blood HCO3 32mmol/L (21-28) 36mmol/L (21-28) 35mmol/L (21-28) Arterial Blood Base Excess 4mmol/L (-3-3) 8mmol/L (-3-3) 7mmol/L (-3-3) FiO2 50% 50% 50% Objective Assessment Leukocytosis - increased ? post op Left elbow effusion s/p I and D 10/13. + Crystals. Cults pending S/p PEG replacement 10/13 Encephalopathy - resolved currently Fever - better Pneumonia - CXR this am reviewed. Left effusion. Gout Debility Gluteal ulcer/decub Diarrhea. c. diff negative s/p nails debrided x 10 with microbleed to left hallux. 10/09 Inguinal hernia Plan Plan of Care Cont Zosyn (10/06) and micafungin (10/08) Vanc (10/10) - wean soon F/u Blood cults times 2 and surgical cult If gout alone in elbow may benefit from Systemic steroids Monitor labs/cultures RAÚL SCHMITT MD Oct 15, 2016 07:05
[2016-10-15 08:00] LABS: BASO % 1 % (0-3); EOS % 7 % (0-3); HEMATOCRIT 27.6 % (39.0-53.0); LYMPH # 1.1 x10^3/uL (1.0-4.8); LYMPH % 13 % (24-48); MEAN CORPUSCULAR HEMOGLOBIN 31 pg (25-35); MEAN CORPUSCULAR HGB CONC 33 g/dL (31-37); MEAN CORPUSCULAR VOLUME 94 fL (79-100); MONO % 7 % (0-9); NEUT % 73 % (31-73); PLATELET COUNT 264 x10^3/uL (140-400); RED BLOOD COUNT 2.93 x10^6/uL (4.30-5.70); RED CELL DISTRIBUTION WIDTH 14.6 % (11.5-14.5); WHITE BLOOD COUNT 8.4 x10^3/uL (4.0-11.0)
[2016-10-15 08:10] LABS: CALCIUM 8.4 mg/dL (8.5-10.1); CREATININE 1.1 mg/dL (0.7-1.3); GFR 65.3; POTASSIUM 3.7 mmol/L (3.5-5.1)
--- NOTE | 2016-10-15 08:14 | RAD ---
Portable chest, 10/15/2016: History: Shortness of breath Comparison is made to yesterday's study. There has been a previous median sternotomy. A tube overlying the right axillary region probably represents a venous catheter. A gastrostomy tube is in place. The heart is enlarged. The pulmonary vascularity remains at the upper limits of normal. There is continued obscuration of the left hemidiaphragm in a pattern suggesting pleural fluid and underlying atelectasis. The right base has partially cleared. No new abnormality is detected. IMPRESSION: 1. Cardiomegaly with borderline vascular congestion. 2. Unchanged pleural fluid and atelectasis in the left base. 3. Resolving mild right basilar opacities.
[2016-10-15] MEDS: VANCOMYCIN 1 GM in IV NORMAL SALINE 250ML 250 ML IV SCH (09:05)
[2016-10-15] MEDS: MICAFUNGIN 100 MG in IV DEXTROSE 5% 100 ML IV SCH (10:16)
--- NOTE | 2016-10-15 10:22 | PDOC ---
G I PROGRESS NOTE Reason for Follow-up Dysphagia/diarrhea Subjective Tolerating tube feedings with loose stools/diarrhea c diff - Physical Exam Lungs decreased BS CV S1 S2 ABD PEG intact, soft, nontender, +BS Review of Relevant I have reviewed the following items cassidy (where applicable) has been applied. Labs Laboratory Tests Test 10/14/16 05:00 10/14/16 09:54 10/14/16 16:37 10/14/16 17:32 White Blood Count 13.4x10^3/uL (4.0-11.0) Red Blood Count 3.26x10^6/uL (4.30-5.70) Hemoglobin 10.4g/dL (13.0-17.5) Hematocrit 30.2% (39.0-53.0) Mean Corpuscular Volume 93fL (79-100) Mean Corpuscular Hemoglobin 32pg (25-35) Mean Corpuscular Hemoglobin Concent 34g/dL (31-37) Red Cell Distribution Width 14.6% (11.5-14.5) Platelet Count 313x10^3/uL (140-400) Neutrophils (%) (Auto) 91% (31-73) Lymphocytes (%) (Auto) 4% (24-48) Monocytes (%) (Auto) 4% (0-9) Eosinophils (%) (Auto) 0% (0-3) Basophils (%) (Auto) 0% (0-3) Neutrophils # (Auto) 12.3x10^3uL (1.8-7.7) Lymphocytes # (Auto) 0.6x10^3/uL (1.0-4.8) Monocytes # (Auto) 0.6x10^3/uL (0.0-1.1) Eosinophils # (Auto) 0.0x10^3/uL (0.0-0.7) Basophils # (Auto) 0.0x10^3/uL (0.0-0.2) Segmented Neutrophils % 87% (35-66) Band Neutrophils % 6% (0-9) Lymphocytes % 3% (24-48) Monocytes % 2% (0-10) Myelocytes % 2% (0-0) Platelet Estimate Adequate (ADEQUATE) Sodium Level 143mmol/L (136-145) Potassium Level 4.7mmol/L (3.5-5.1) Chloride Level 104mmol/L (98-107) Carbon Dioxide Level 36mmol/L (21-32) Anion Gap 3 (6-14) Blood Urea Nitrogen 21mg/dL (8-26) Creatinine 1.0mg/dL (0.7-1.3) Estimated GFR (Cockcroft-Gault) 72.8 Glucose Level 156mg/dL (70-99) Calcium Level 8.7mg/dL (8.5-10.1) Vancomycin Level Trough 21.5mcg/mL (10.0-20.0) Vancomycin Last Dose Date 10/13/16 Vancomycin Last Dose Time 1700 O2 Saturation 93% (92-99) 80% (92-99) 92% (92-99) Arterial Blood pH 7.29 (7.35-7.45) 7.36 (7.35-7.45) 7.34 (7.35-7.45) Arterial Blood pCO2 at Patient Temp 67mmHg (35-46) 66mmHg (35-46) 66mmHg (35-46) Arterial Blood pO2 at Patient Temp 77mmHg (65-108) 43mmHg (65-108) 66mmHg (65-108) Arterial Blood HCO3 32mmol/L (21-28) 36mmol/L (21-28) 35mmol/L (21-28) Arterial Blood Base Excess 4mmol/L (-3-3) 8mmol/L (-3-3) 7mmol/L (-3-3) FiO2 50% 50% 50% Test 10/15/16 07:38 White Blood Count 8.4x10^3/uL (4.0-11.0) Red Blood Count 2.93x10^6/uL (4.30-5.70) Hemoglobin 9.0g/dL (13.0-17.5) Hematocrit 27.6% (39.0-53.0) Mean Corpuscular Volume 94fL (79-100) Mean Corpuscular Hemoglobin 31pg (25-35) Mean Corpuscular Hemoglobin Concent 33g/dL (31-37) Red Cell Distribution Width 14.6% (11.5-14.5) Platelet Count 264x10^3/uL (140-400) Neutrophils (%) (Auto) 73% (31-73) Lymphocytes (%) (Auto) 13% (24-48) Monocytes (%) (Auto) 7% (0-9) Eosinophils (%) (Auto) 7% (0-3) Basophils (%) (Auto) 1% (0-3) Neutrophils # (Auto) 6.1x10^3uL (1.8-7.7) Lymphocytes # (Auto) 1.1x10^3/uL (1.0-4.8) Monocytes # (Auto) 0.6x10^3/uL (0.0-1.1) Eosinophils # (Auto) 0.6x10^3/uL (0.0-0.7) Basophils # (Auto) 0.0x10^3/uL (0.0-0.2) Sodium Level 143mmol/L (136-145) Potassium Level 3.7mmol/L (3.5-5.1) Chloride Level 106mmol/L (98-107) Carbon Dioxide Level 37mmol/L (21-32) Anion Gap 0 (6-14) Blood Urea Nitrogen 35mg/dL (8-26) Creatinine 1.1mg/dL (0.7-1.3) Estimated GFR (Cockcroft-Gault) 65.3 Glucose Level 135mg/dL (70-99) Calcium Level 8.4mg/dL (8.5-10.1) Laboratory Tests Test 10/14/16 16:37 10/14/16 17:32 10/15/16 07:38 O2 Saturation 80% (92-99) 92% (92-99) Arterial Blood pH 7.36 (7.35-7.45) 7.34 (7.35-7.45) Arterial Blood pCO2 at Patient Temp 66mmHg (35-46) 66mmHg (35-46) Arterial Blood pO2 at Patient Temp 43mmHg (65-108) 66mmHg (65-108) Arterial Blood HCO3 36mmol/L (21-28) 35mmol/L (21-28) Arterial Blood Base Excess 8mmol/L (-3-3) 7mmol/L (-3-3) FiO2 50% 50% White Blood Count 8.4x10^3/uL (4.0-11.0) Red Blood Count 2.93x10^6/uL (4.30-5.70) Hemoglobin 9.0g/dL (13.0-17.5) Hematocrit 27.6% (39.0-53.0) Mean Corpuscular Volume 94fL (79-100) Mean Corpuscular Hemoglobin 31pg (25-35) Mean Corpuscular Hemoglobin Concent 33g/dL (31-37) Red Cell Distribution Width 14.6% (11.5-14.5) Platelet Count 264x10^3/uL (140-400) Neutrophils (%) (Auto) 73% (31-73) Lymphocytes (%) (Auto) 13% (24-48) Monocytes (%) (Auto) 7% (0-9) Eosinophils (%) (Auto) 7% (0-3) Basophils (%) (Auto) 1% (0-3) Neutrophils # (Auto) 6.1x10^3uL (1.8-7.7) Lymphocytes # (Auto) 1.1x10^3/uL (1.0-4.8) Monocytes # (Auto) 0.6x10^3/uL (0.0-1.1) Eosinophils # (Auto) 0.6x10^3/uL (0.0-0.7) Basophils # (Auto) 0.0x10^3/uL (0.0-0.2) Sodium Level 143mmol/L (136-145) Potassium Level 3.7mmol/L (3.5-5.1) Chloride Level 106mmol/L (98-107) Carbon Dioxide Level 37mmol/L (21-32) Anion Gap 0 (6-14) Blood Urea Nitrogen 35mg/dL (8-26) Creatinine 1.1mg/dL (0.7-1.3) Estimated GFR (Cockcroft-Gault) 65.3 Glucose Level 135mg/dL (70-99) Calcium Level 8.4mg/dL (8.5-10.1) Microbiology 10/10/16 Blood Culture - Preliminary, Resulted NO GROWTH AFTER 4 DAYS 10/05/16 Urine Culture - Final, Complete 10/05/16 Urine Culture Result 1 (JABARI) - Final, Complete 10/13/16 Gram Stain - Final, Complete Medications Current Medications Albuterol/ Ipratropium (Duoneb) 3 ml 1X ONCE NEB Last administered on 22:21; Start 10/05/16 at 22:15; Stop 10/05/16 at 22:50; Status DC Ondansetron HCl 4 mg 4 mg PRN Q8HRS PRN IV NAUSEA/VOMITING; Start 10/05/16 at 23 :00; Stop 10/06/16 at 22:59; Status DC Sodium Chloride (Iv Sodium Chloride 0.9% 1000ml Bag) 1,000 ml @ 100 mls/hr Q10H IV Last administered on 10/06/16 18:59; Start 10/05/16 at 22:59; Stop at 22:58; Status DC Albuterol/ Ipratropium 3 ml 3 ml RTQID NEB Last administered on 10/07/16 07:47 ; Start 10/06/16 at 08:00; Stop 10/07/16 at 07:59; Status DC Ceftriaxone Sodium 1 gm/ Sodium Chloride 50 ml @ 100 mls/hr Q24H IV ; Start 10/06/16 at 22:00; Stop 10/06/16 at 22:00; Status DC Levofloxacin/ Dextrose (LEVAQUIN 750mg PREMIX) 150 ml @ 100 mls/hr 1X ONCE IV Last administered on 10/06/16 01:05; Start 10/05/16 at 23:30; Stop 10/06/16 at 00:59; Status DC Vancomycin HCl 1 each 1 each PRN DAILY PRN MC SEE COMMENTS Last administered on 10/07/16 14:14; Start 10/05/16 at 23:00; Stop 10/08/16 at 18:52; Status DC Ceftriaxone Sodium 50 ml @ 100 mls/hr 1X ONCE IV Last administered on 01:05; Start 10/05/16 at 23:30; Stop 10/05/16 at 23:59; Status DC Vancomycin HCl 2 gm/Sodium Chloride 500 ml @ 250 mls/hr 1X ONCE IV Last administered on 10/05/16 23:26; Start 10/06/16 at 00:00; Stop 10/06/16 at 01:59; Status DC Vancomycin HCl/ Sodium Chloride (Iv Sodium Chloride 0.9% 250ml) 250 ml @ 167 mls/hr Q12H IV Last administered on 10/08/16 13:20; Start 10/06/16 at 12:00; Stop 10/08/16 at 18:52; Status DC Vancomycin HCl 1 each 1 each 1X ONCE MC ; Start 10/07/16 at 11:30; Stop 10/07/16 at 11:31; Status DC Piperacillin Sod/ Tazobactam Sod/ Sodium Chloride (Zosyn/Iv Sodium Chloride 0.9 % 50ml) 50 ml @ 100 mls/hr Q6HRS IV Last administered on 10/06/16 11:56; Start 10/06/16 at 11:00; Stop 10/06/16 at 15:24; Status DC Piperacillin Sod/ Tazobactam Sod (Zosyn Per Pharmacy) 1 each PRN DAILY PRN MC SEE COMMENTS; Start 10/06/16 at 10:15 Aspirin (Ecotrin) 81 mg DAILY PO ; Start 10/06/16 at 11:30; Stop 10/06/16 at 11:30 ; Status DC Bisacodyl (Dulcolax Supp) 10 mg PRN DAILY PRN RC CONSTIPATION; Start 10/06/16 at 10:15 Furosemide (Lasix) 40 mg DAILY PO Last administered on 10/12/16 07:53; Start 10/06/16 at 11:30 Guaifenesin (Mucinex) 600 mg BID PO ; Start 10/06/16 at 11:30; Stop 10/06/16 at 11 :30; Status DC Potassium Chloride (KCl Oral Soln) 10 meq DAILY PEG Last administered on 08:18; Start 10/06/16 at 11:30 Simvastatin (Zocor) 20 mg QHS PO Last administered on 10/14/16 22:17; Start at 21:00 Tamsulosin HCl (Flomax) 0.4 mg DAILY PO Last administered on 10/07/16 08:58; Start 10/06/16 at 11:30; Stop 10/08/16 at 10:18; Status DC Multivitamins/ Minerals (Ocuvite Lutein) 1 cap DAILY PO Last administered on 07:53; Start 10/06/16 at 11:00 Artificial Tears (Artificial Tears) 1 drop PRN BID PRN OU DRY EYE Last administered on 10/11/16 08:39; Start 10/06/16 at 10:30 Aspirin (Children'S Aspirin) 81 mg DAILYWBKFT PO Last administered on 10/08/16 09:00; Start 10/06/16 at 11:30; Stop 10/08/16 at 11:31; Status DC Guaifenesin (Robitussin) 200 mg QID PO Last administered on 10/14/16 22:16; Start 10/06/16 at 11:30 Furosemide (Lasix) 40 mg 1X ONCE IVP Last administered on 10/06/16 12:01; Start 10/06/16 at 12:00; Stop 10/06/16 at 12:01; Status DC Acetaminophen (Tylenol) 650 mg PRN Q6HRS PRN PEG MILD PAIN / TEMP Last administered on 10/10/16 09:42; Start 10/06/16 at 12:15 Ondansetron HCl (Zofran) 4 mg PRN Q6HRS PRN IV NAUSEA/VOMITING; Start 10/06/16 at 12:15 Enoxaparin Sodium (Lovenox 40mg Syringe) 40 mg Q24H SQ Last administered on 14:34; Start 10/06/16 at 13:00 Nystatin 1 alejandro 1 alejandro BID TP Last administered on 10/14/16 21:00; Start at 14:30 Piperacillin Sod/ Tazobactam Sod/ Sodium Chloride (Zosyn/Iv Sodium Chloride 0.9 % 100ml) 100 ml @ 200 mls/hr Q6HRS IV Last administered on 10/15/16 05:45; Start 10/06/16 at 18:00 Meloxicam (Mobic) 7.5 mg DAILY PO Last administered on 10/14/16 08:22; Start 10/07/16 at 10:00 Acetaminophen/ Hydrocodone Bitart (Lortab 5/325) 1 tab PRN Q4HRS PRN PO MODERATE - SEVERE PAIN Last administered on 10/14/16 14:36; Start 10/07/16 at 10 :45 Furosemide (Lasix) 20 mg 1X ONCE IVP Last administered on 10/07/16 18:24; Start 10/07/16 at 12:00; Stop 10/07/16 at 12:01; Status DC Digoxin 500 mcg 500 mcg 1X ONCE IV Last administered on 10/07/16 22:38; Start 10/07/16 at 22:15; Stop 10/07/16 at 22:17; Status DC Micafungin Sodium/ Dextrose (Mycamine) 100 ml @ 100 mls/hr Q24H IV Last administered on 10/14/16 11:06; Start 10/08/16 at 09:00 Iohexol (Omnipaque 240 Mg/ml) 30 ml 1X ONCE PO Last administered on 10/08/16 11:47; Start 10/08/16 at 09:15; Stop 10/08/16 at 09:18; Status DC Iohexol (Omnipaque 300 Mg/ml) 75 ml 1X ONCE IV Last administered on 10/08/16 11:46; Start 10/08/16 at 09:15; Stop 10/08/16 at 09:18; Status DC Finasteride (Proscar) 5 mg DAILY PO Last administered on 10/14/16 08:22; Start 10/09/16 at 09:00 Methylprednisolone Acetate (Depo-Medrol 40mg Vial) 40 mg 1X ONCE IM ; Start 10/08/16 at 10:45; Stop 10/08/16 at 10:53; Status DC Methylprednisolone Acetate (Depo-Medrol 40mg Vial) 40 mg 1X ONCE IM ; Start 10/08/16 at 10:45; Stop 10/08/16 at 10:53; Status DC Bupivacaine HCl (Sensorcaine-Mpf 0.25%) 10 ml 1X ONCE IJ ; Start 10/08/16 at 10: 45; Stop 10/08/16 at 10:53; Status DC Digoxin (Lanoxin) 125 mcg DAILY PO Last administered on 10/14/16 08:22; Start 10/08/16 at 11:30 Aspirin (Children'S Aspirin) 325 mg DAILYWBKFT PO Last administered on 12:38; Start 10/08/16 at 11:30; Stop 10/08/16 at 13:30; Status DC Lactobacillus Acidophilus (Bacid, Danielle-Bid) 1 tab DAILY PO Last administered on 10/14/16 08:18; Start 10/08/16 at 13:00 Aspirin (Children'S Aspirin) 324 mg DAILYWBKFT PO Last administered on 08:19; Start 10/08/16 at 13:30 Oxycodone/ Acetaminophen (Percocet 10/325) 1 tab PRN Q6HRS PRN PO PAIN Last administered on 10/14/16 22:16; Start 10/09/16 at 10:30 Furosemide (Lasix) 20 mg 1X ONCE IVP Last administered on 10/09/16 16:54; Start 10/09/16 at 15:00; Stop 10/09/16 at 15:01; Status DC Urea (Ritu Lo 40, X-Viate) 1 alejandro DAILY TP Last administered on 10/14/16 12:49; Start 10/09/16 at 18:00 Nystatin 5 ml 5 ml [id number] Last administered on 10/14/16 22:16; Start 06/18 at 13:00 Potassium Chloride (KCl Premix 10meq) 100 ml @ 100 mls/hr Q1H IV Last administered on 10/10/16 17:00; Start 10/10/16 at 14:00; Stop 10/10/16 at 17:59 ; Status DC Vancomycin HCl 1 each 1 each PRN DAILY PRN MC SEE COMMENTS Last administered on 10/14/16 06:06; Start 10/10/16 at 14:45 Vancomycin HCl 2 gm/Sodium Chloride 500 ml @ 250 mls/hr 1X ONCE IV Last administered on 10/10/16 15:30; Start 10/10/16 at 15:30; Stop 10/10/16 at 17:29 ; Status DC Vancomycin HCl/ Sodium Chloride (Iv Sodium Chloride 0.9% 250ml) 250 ml @ 167 mls/hr Q12H IV Last administered on 10/13/16 17:43; Start 10/11/16 at 05:00; Stop 10/14/16 at 05:57; Status DC Ondansetron HCl (Zofran) 4 mg PRN Q6HRS PRN IV Nausea; Start 10/13/16 at 12:30 ; Stop 10/14/16 at 12:29; Status DC Fentanyl Citrate (Fentanyl 2ml Vial) 25 mcg PRN Q5MIN PRN IV MILD PAIN; Start 10/13/16 at 12:30; Stop 10/14/16 at 12:29; Status DC Fentanyl Citrate (Fentanyl 2ml Vial) 50 mcg PRN Q5MIN PRN IV MODERATE PAIN; Start 10/13/16 at 12:30; Stop 10/14/16 at 12:29; Status DC Morphine Sulfate 1 mg 1 mg PRN Q10MIN PRN IV SEVERE PAIN; Start 10/13/16 at 12: 30; Stop 10/14/16 at 12:29; Status DC Lactated Ringer's (Iv Lactated Ringers) 1,000 ml @ 0 mls/hr Q0M IV ; Start at 12:23; Stop 10/14/16 at 00:22; Status DC Lidocaine HCl 2 ml 1X PRN PRN ID IV START; Start 10/13/16 at 12:30; Stop at 12:29; Status DC Hydromorphone HCl (Dilaudid) 0.5 mg PRN Q10MIN PRN IV SEV PAIN,Second choice; Start 10/13/16 at 12:30; Stop 10/14/16 at 12:29; Status DC Prochlorperazine Edisylate (Compazine) 5 mg PACU PRN PRN IV NAUSEA; Start 10/13 at 12:30; Stop 10/14/16 at 12:29; Status DC Vancomycin HCl 1 each 1 each 1X ONCE MC Last administered on 10/14/16t 05:09; Start 10/14/16 at 04:30; Stop 10/14/16 at 04:31; Status DC Propofol (Diprivan) 20 ml @ As Directed STK-MED ONCE IV ; Start 10/13/16 at 15: 07; Stop 10/13/16 at 15:08; Status DC Lidocaine HCl 5 ml 5 ml STK-MED ONCE .ROUTE ; Start 10/13/16 at 15:07; Stop at 15:08; Status DC Propofol (Diprivan) 20 ml @ As Directed STK-MED ONCE IV ; Start 10/13/16 at 18: 42; Stop 10/13/16 at 18:43; Status DC Lidocaine HCl 100 mg STK-MED ONCE .ROUTE ; Start 10/13/16 at 18:42; Stop at 18:43; Status DC Ondansetron HCl (Zofran) 4 mg STK-MED ONCE .ROUTE ; Start 10/13/16 at 19:16; Stop 10/13/16 at 19:17; Status DC Phenylephrine HCl 1 mg STK-MED ONCE IV ; Start 10/13/16 at 19:16; Stop 10/13/16 at 19:17; Status DC Sevoflurane (Ultane) 30 ml STK-MED ONCE IH ; Start 10/13/16 at 19:28; Stop 10/13 at 19:29; Status DC Dexamethasone Sodium Phosphate (Decadron) 20 mg STK-MED ONCE .ROUTE ; Start at 19:29; Stop 10/13/16 at 19:30; Status DC Albuterol/ Ipratropium (Duoneb) 3 ml 1X ONCE NEB Last administered on 03:45; Start 10/14/16 at 03:45; Stop 10/14/16 at 03:46; Status DC Furosemide 20 mg 20 mg 1X ONCE IVP Last administered on 10/14/16 05:26; Start 10/14/16 at 05:15; Stop 10/14/16 at 05:16; Status DC Vancomycin HCl/ Sodium Chloride (Iv Sodium Chloride 0.9% 250ml) 250 ml @ 250 mls/hr Q12H IV Last administered on 10/15/16 09:05; Start 10/14/16 at 06:00 Vancomycin HCl 1 each 1X ONCE MC ; Start 10/15/16 at 20:30; Stop 10/15/16 at 20 :31 Furosemide (Lasix) 40 mg 1X ONCE IVP Last administered on 10/14/16 10:35; Start 10/14/16 at 10:30; Stop 10/14/16 at 10:31; Status DC Alteplase, Recombinant (Cathflo) 2 mg 1X ONCE INT CAT Last administered on 05:17; Start 10/15/16 at 05:30; Stop 10/15/16 at 05:31; Status DC Active Scripts Active Reported Isopto Tears (Hypromellose) 15 Ml Drops 15 Ml OP Oxycodone Hcl 10 Mg Tablet 1 Tab PO QID Ocuvite Tablet (Vit A,C & E/Lutein/Minerals) 1 Each Tablet 1 Each PO Dulcolax (Bisacodyl) 10 Mg Supp.rect 10 Mg RC PRN DAILY PRN Milk Of Magnesia (Magnesium Hydroxide) 400 Mg/5 Ml Oral.susp 400 Mg PO Simvastatin 20 Mg Tablet 1 Tab PO QHS Refresh Optive Eye Drops (Carboxymethylcellulos/Glycerin) 15 Ml Drops 1 Drop EACHEYE BID Tamsulosin Hcl 0.4 Mg Cap.er.24h 1 Cap PO DAILY Potassium Chloride Oral Liquid (Potassium Chloride) 20 Meq/15 Ml Liquid 10 Meq PEG DAILY Aspir 81 (Aspirin) 81 Mg Tablet.dr 1 Tab PO DAILY Furosemide 40 Mg Tablet 1 Tab PO DAILY Meloxicam 7.5 Mg Tablet 1 Tab PO DAILY Trazodone Hcl 50 Mg Tablet 1 Tab PO QHS Mucinex (Guaifenesin) 600 Mg Tablet.er 600 Mg PO Vitals/I & O Vital Sign - Last 24 Hours 10/14/16 10/14/16 10/14/16 10/14/16 10:28 10:50 10:59 12:27 Pulse 89 Resp 16 B/P 119/58 119/51 Pulse Ox 100 84 100 O2 Delivery BiPAP/CPAP Venturi Mask BiPAP/CPAP 10/14/16 10/14/16 10/14/16 10/14/16 14:36 15:08 15:25 15:36 Temp 98.0 98.0 Pulse 79 Resp 18 23 18 B/P 118/48 Pulse Ox 97 100 96 98 O2 Delivery BiPAP/CPAP BiPAP/CPAP BiPAP/CPAP BiPAP/CPAP 10/14/16 10/14/16 10/14/16 10/14/16 16:31 19:00 19:22 22:16 Temp 98.5 98.5 Pulse 72 Resp 20 20 B/P 125/52 Pulse Ox 100 100 100 40 O2 Delivery BiPAP/CPAP BiPAP/CPAP BiPAP/CPAP BiPAP/CPAP O2 Flow Rate 15.0 10/14/16 10/14/16 10/14/16 10/15/16 23:20 23:27 23:27 01:38 Temp 97.9 97.9 Pulse 67 Resp 20 20 B/P 104/59 Pulse Ox 98 100 100 100 O2 Delivery BiPAP/CPAP BiPAP/CPAP BiPAP/CPAP BiPAP/CPAP 10/15/16 10/15/16 03:08 07:00 Temp 98.2 98.6 98.2 98.6 Pulse 67 67 Resp 20 18 B/P 108/44 143/59 Pulse Ox 99 98 O2 Delivery BiPAP/CPAP Nasal Cannula O2 Flow Rate 3.0 Intake and Output 10/14/16 10/14/16 10/15/16 15:00 23:00 07:00 Intake Total 675 ml 820 ml 906 ml Output Total 650 ml 650 ml Balance 675 ml 170 ml 256 ml Problem List Problems Medical Problems: (1) Altered mental status Status: Acute (2) Gouty arthropathy, chronic, with tophi Status: Acute (3) Hospital acquired PNA Status: Acute Assessment Oropharyngeal dysphagia- S/P PEG, continue with feedings ID- S/p elbow drainage, await cultures, on antibiotics Diarrhea- C diff _, continue with feedings. MICHELLE REDDY MD Oct 15, 2016 10:22
[2016-10-15] MEDS: OXYCODONE/APAP 10/325 TABLET. PO PRN ×2 (10:23→20:11)
[2016-10-15] MEDS: ASPIRIN 81 MG TAB.CHEW PO SCH (10:24)
[2016-10-15] MEDS: DIGOXIN 125 MCG TABLET PO SCH (10:24)
[2016-10-15] MEDS: LACTOBACILLUS ACIDOPH & BULGAR 1 TABLET. PO SCH (10:25)
[2016-10-15] MEDS: MULTIVITAMIN EYE FORMULA CAPSULE. PO SCH (10:25)
[2016-10-15] MEDS: FUROSEMIDE 40 MG TABLET PO SCH (10:25)
[2016-10-15] MEDS: FINASTERIDE 5 MG TABLET PO SCH (10:25)
[2016-10-15] MEDS: MELOXICAM 7.5 MG TABLET PO SCH (10:25)
[2016-10-15] MEDS: POTASSIUM CHLORIDE 20 MEQ/15 ML ORAL LIQUID. PEG SCH (10:26)
[2016-10-15] MEDS: NYSTATIN 100,000 UNITS/ML 5 ML ORAL.SUSP. SWSW SCH ×4 (10:27→21:00)
[2016-10-15] MEDS: GUAIFENESIN 200 MG/10 ML LIQUID. PO SCH ×5 (10:27→20:10)
--- NOTE | 2016-10-15 10:33 | PDOC ---
PROGRESS NOTES Subjective Subjective He feels better. Objective Objective Vital Signs Date Time Temp Pulse Resp B/P Pulse Ox O2 Delivery O2 Flow Rate FiO2 10/15/16 07:00 98.6 67 18 143/59 98 Nasal Cannula 3.0 98.6 Intake and Output 10/15/16 07:00 Intake Total 2401 ml Output Total 1300 ml Balance 1101 ml IV Total 1025 ml Tube Feeding 1076 ml Blood Product IV Normal Saline Flush 100 ml Other 200 ml Output Urine Total 1300 ml # Bowel Movements 1 Physical Exam Physical Exam He is alert and talking and moves all 4 extremities to command and continues with stffness of his extremity joints.He had dressing to left elbow. Assessment Assessment Problems Medical Problems: (1) Altered mental status Status: Acute (2) Gouty arthropathy, chronic, with tophi Status: Acute (3) Hospital acquired PNA Status: Acute Plan Plan of Care To get him up as tolerated. Comment Review of Relevant I have reviewed the following items cassiyd (where applicable) has been applied. Labs Laboratory Tests Test 10/14/16 05:00 10/14/16 09:54 10/14/16 16:37 10/14/16 17:32 White Blood Count 13.4x10^3/uL (4.0-11.0) Red Blood Count 3.26x10^6/uL (4.30-5.70) Hemoglobin 10.4g/dL (13.0-17.5) Hematocrit 30.2% (39.0-53.0) Mean Corpuscular Volume 93fL (79-100) Mean Corpuscular Hemoglobin 32pg (25-35) Mean Corpuscular Hemoglobin Concent 34g/dL (31-37) Red Cell Distribution Width 14.6% (11.5-14.5) Platelet Count 313x10^3/uL (140-400) Neutrophils (%) (Auto) 91% (31-73) Lymphocytes (%) (Auto) 4% (24-48) Monocytes (%) (Auto) 4% (0-9) Eosinophils (%) (Auto) 0% (0-3) Basophils (%) (Auto) 0% (0-3) Neutrophils # (Auto) 12.3x10^3uL (1.8-7.7) Lymphocytes # (Auto) 0.6x10^3/uL (1.0-4.8) Monocytes # (Auto) 0.6x10^3/uL (0.0-1.1) Eosinophils # (Auto) 0.0x10^3/uL (0.0-0.7) Basophils # (Auto) 0.0x10^3/uL (0.0-0.2) Segmented Neutrophils % 87% (35-66) Band Neutrophils % 6% (0-9) Lymphocytes % 3% (24-48) Monocytes % 2% (0-10) Myelocytes % 2% (0-0) Platelet Estimate Adequate (ADEQUATE) Sodium Level 143mmol/L (136-145) Potassium Level 4.7mmol/L (3.5-5.1) Chloride Level 104mmol/L (98-107) Carbon Dioxide Level 36mmol/L (21-32) Anion Gap 3 (6-14) Blood Urea Nitrogen 21mg/dL (8-26) Creatinine 1.0mg/dL (0.7-1.3) Estimated GFR (Cockcroft-Gault) 72.8 Glucose Level 156mg/dL (70-99) Calcium Level 8.7mg/dL (8.5-10.1) Vancomycin Level Trough 21.5mcg/mL (10.0-20.0) Vancomycin Last Dose Date 10/13/16 Vancomycin Last Dose Time 1700 O2 Saturation 93% (92-99) 80% (92-99) 92% (92-99) Arterial Blood pH 7.29 (7.35-7.45) 7.36 (7.35-7.45) 7.34 (7.35-7.45) Arterial Blood pCO2 at Patient Temp 67mmHg (35-46) 66mmHg (35-46) 66mmHg (35-46) Arterial Blood pO2 at Patient Temp 77mmHg (65-108) 43mmHg (65-108) 66mmHg (65-108) Arterial Blood HCO3 32mmol/L (21-28) 36mmol/L (21-28) 35mmol/L (21-28) Arterial Blood Base Excess 4mmol/L (-3-3) 8mmol/L (-3-3) 7mmol/L (-3-3) FiO2 50% 50% 50% Test 10/15/16 07:38 White Blood Count 8.4x10^3/uL (4.0-11.0) Red Blood Count 2.93x10^6/uL (4.30-5.70) Hemoglobin 9.0g/dL (13.0-17.5) Hematocrit 27.6% (39.0-53.0) Mean Corpuscular Volume 94fL (79-100) Mean Corpuscular Hemoglobin 31pg (25-35) Mean Corpuscular Hemoglobin Concent 33g/dL (31-37) Red Cell Distribution Width 14.6% (11.5-14.5) Platelet Count 264x10^3/uL (140-400) Neutrophils (%) (Auto) 73% (31-73) Lymphocytes (%) (Auto) 13% (24-48) Monocytes (%) (Auto) 7% (0-9) Eosinophils (%) (Auto) 7% (0-3) Basophils (%) (Auto) 1% (0-3) Neutrophils # (Auto) 6.1x10^3uL (1.8-7.7) Lymphocytes # (Auto) 1.1x10^3/uL (1.0-4.8) Monocytes # (Auto) 0.6x10^3/uL (0.0-1.1) Eosinophils # (Auto) 0.6x10^3/uL (0.0-0.7) Basophils # (Auto) 0.0x10^3/uL (0.0-0.2) Sodium Level 143mmol/L (136-145) Potassium Level 3.7mmol/L (3.5-5.1) Chloride Level 106mmol/L (98-107) Carbon Dioxide Level 37mmol/L (21-32) Anion Gap 0 (6-14) Blood Urea Nitrogen 35mg/dL (8-26) Creatinine 1.1mg/dL (0.7-1.3) Estimated GFR (Cockcroft-Gault) 65.3 Glucose Level 135mg/dL (70-99) Calcium Level 8.4mg/dL (8.5-10.1) Laboratory Tests Test 10/14/16 16:37 10/14/16 17:32 10/15/16 07:38 O2 Saturation 80% (92-99) 92% (92-99) Arterial Blood pH 7.36 (7.35-7.45) 7.34 (7.35-7.45) Arterial Blood pCO2 at Patient Temp 66mmHg (35-46) 66mmHg (35-46) Arterial Blood pO2 at Patient Temp 43mmHg (65-108) 66mmHg (65-108) Arterial Blood HCO3 36mmol/L (21-28) 35mmol/L (21-28) Arterial Blood Base Excess 8mmol/L (-3-3) 7mmol/L (-3-3) FiO2 50% 50% White Blood Count 8.4x10^3/uL (4.0-11.0) Red Blood Count 2.93x10^6/uL (4.30-5.70) Hemoglobin 9.0g/dL (13.0-17.5) Hematocrit 27.6% (39.0-53.0) Mean Corpuscular Volume 94fL (79-100) Mean Corpuscular Hemoglobin 31pg (25-35) Mean Corpuscular Hemoglobin Concent 33g/dL (31-37) Red Cell Distribution Width 14.6% (11.5-14.5) Platelet Count 264x10^3/uL (140-400) Neutrophils (%) (Auto) 73% (31-73) Lymphocytes (%) (Auto) 13% (24-48) Monocytes (%) (Auto) 7% (0-9) Eosinophils (%) (Auto) 7% (0-3) Basophils (%) (Auto) 1% (0-3) Neutrophils # (Auto) 6.1x10^3uL (1.8-7.7) Lymphocytes # (Auto) 1.1x10^3/uL (1.0-4.8) Monocytes # (Auto) 0.6x10^3/uL (0.0-1.1) Eosinophils # (Auto) 0.6x10^3/uL (0.0-0.7) Basophils # (Auto) 0.0x10^3/uL (0.0-0.2) Sodium Level 143mmol/L (136-145) Potassium Level 3.7mmol/L (3.5-5.1) Chloride Level 106mmol/L (98-107) Carbon Dioxide Level 37mmol/L (21-32) Anion Gap 0 (6-14) Blood Urea Nitrogen 35mg/dL (8-26) Creatinine 1.1mg/dL (0.7-1.3) Estimated GFR (Cockcroft-Gault) 65.3 Glucose Level 135mg/dL (70-99) Calcium Level 8.4mg/dL (8.5-10.1) Microbiology 10/10/16 Blood Culture - Preliminary, Resulted NO GROWTH AFTER 4 DAYS 10/05/16 Urine Culture - Final, Complete 10/05/16 Urine Culture Result 1 (JABARI) - Final, Complete 10/13/16 Gram Stain - Final, Complete Medications Current Medications Albuterol/ Ipratropium (Duoneb) 3 ml 1X ONCE NEB Last administered on 22:21; Start 10/05/16 at 22:15; Stop 10/05/16 at 22:50; Status DC Ondansetron HCl 4 mg 4 mg PRN Q8HRS PRN IV NAUSEA/VOMITING; Start 10/05/16 at 23 :00; Stop 10/06/16 at 22:59; Status DC Sodium Chloride (Iv Sodium Chloride 0.9% 1000ml Bag) 1,000 ml @ 100 mls/hr Q10H IV Last administered on 10/06/16 18:59; Start 10/05/16 at 22:59; Stop at 22:58; Status DC Albuterol/ Ipratropium 3 ml 3 ml RTQID NEB Last administered on 10/07/16 07:47 ; Start 10/06/16 at 08:00; Stop 10/07/16 at 07:59; Status DC Ceftriaxone Sodium 1 gm/ Sodium Chloride 50 ml @ 100 mls/hr Q24H IV ; Start 10/06/16 at 22:00; Stop 10/06/16 at 22:00; Status DC Levofloxacin/ Dextrose (LEVAQUIN 750mg PREMIX) 150 ml @ 100 mls/hr 1X ONCE IV Last administered on 10/06/16 01:05; Start 10/05/16 at 23:30; Stop 10/06/16 at 00:59; Status DC Vancomycin HCl 1 each 1 each PRN DAILY PRN MC SEE COMMENTS Last administered on 10/07/16 14:14; Start 10/05/16 at 23:00; Stop 10/08/16 at 18:52; Status DC Ceftriaxone Sodium 50 ml @ 100 mls/hr 1X ONCE IV Last administered on 01:05; Start 10/05/16 at 23:30; Stop 10/05/16 at 23:59; Status DC Vancomycin HCl 2 gm/Sodium Chloride 500 ml @ 250 mls/hr 1X ONCE IV Last administered on 10/05/16 23:26; Start 10/06/16 at 00:00; Stop 10/06/16 at 01:59; Status DC Vancomycin HCl/ Sodium Chloride (Iv Sodium Chloride 0.9% 250ml) 250 ml @ 167 mls/hr Q12H IV Last administered on 10/08/16 13:20; Start 10/06/16 at 12:00; Stop 10/08/16 at 18:52; Status DC Vancomycin HCl 1 each 1 each 1X ONCE MC ; Start 10/07/16 at 11:30; Stop 10/07/16 at 11:31; Status DC Piperacillin Sod/ Tazobactam Sod/ Sodium Chloride (Zosyn/Iv Sodium Chloride 0.9 % 50ml) 50 ml @ 100 mls/hr Q6HRS IV Last administered on 10/06/16 11:56; Start 10/06/16 at 11:00; Stop 10/06/16 at 15:24; Status DC Piperacillin Sod/ Tazobactam Sod (Zosyn Per Pharmacy) 1 each PRN DAILY PRN MC SEE COMMENTS; Start 10/06/16 at 10:15 Aspirin (Ecotrin) 81 mg DAILY PO ; Start 10/06/16 at 11:30; Stop 10/06/16 at 11:30 ; Status DC Bisacodyl (Dulcolax Supp) 10 mg PRN DAILY PRN RC CONSTIPATION; Start 10/06/16 at 10:15 Furosemide (Lasix) 40 mg DAILY PO Last administered on 10/12/16 07:53; Start 10/06/16 at 11:30 Guaifenesin (Mucinex) 600 mg BID PO ; Start 10/06/16 at 11:30; Stop 10/06/16 at 11 :30; Status DC Potassium Chloride (KCl Oral Soln) 10 meq DAILY PEG Last administered on 08:18; Start 10/06/16 at 11:30 Simvastatin (Zocor) 20 mg QHS PO Last administered on 10/14/16 22:17; Start at 21:00 Tamsulosin HCl (Flomax) 0.4 mg DAILY PO Last administered on 10/07/16 08:58; Start 10/06/16 at 11:30; Stop 10/08/16 at 10:18; Status DC Multivitamins/ Minerals (Ocuvite Lutein) 1 cap DAILY PO Last administered on 07:53; Start 10/06/16 at 11:00 Artificial Tears (Artificial Tears) 1 drop PRN BID PRN OU DRY EYE Last administered on 10/11/16 08:39; Start 10/06/16 at 10:30 Aspirin (Children'S Aspirin) 81 mg DAILYWBKFT PO Last administered on 10/08/16 09:00; Start 10/06/16 at 11:30; Stop 10/08/16 at 11:31; Status DC Guaifenesin (Robitussin) 200 mg QID PO Last administered on 10/14/16 22:16; Start 10/06/16 at 11:30 Furosemide (Lasix) 40 mg 1X ONCE IVP Last administered on 10/06/16 12:01; Start 10/06/16 at 12:00; Stop 10/06/16 at 12:01; Status DC Acetaminophen (Tylenol) 650 mg PRN Q6HRS PRN PEG MILD PAIN / TEMP Last administered on 10/10/16 09:42; Start 10/06/16 at 12:15 Ondansetron HCl (Zofran) 4 mg PRN Q6HRS PRN IV NAUSEA/VOMITING; Start 10/06/16 at 12:15 Enoxaparin Sodium (Lovenox 40mg Syringe) 40 mg Q24H SQ Last administered on 14:34; Start 10/06/16 at 13:00 Nystatin 1 alejandro 1 alejandro BID TP Last administered on 10/14/16 21:00; Start at 14:30 Piperacillin Sod/ Tazobactam Sod/ Sodium Chloride (Zosyn/Iv Sodium Chloride 0.9 % 100ml) 100 ml @ 200 mls/hr Q6HRS IV Last administered on 10/15/16 05:45; Start 10/06/16 at 18:00 Meloxicam (Mobic) 7.5 mg DAILY PO Last administered on 10/14/16 08:22; Start 10/07/16 at 10:00 Acetaminophen/ Hydrocodone Bitart (Lortab 5/325) 1 tab PRN Q4HRS PRN PO MODERATE - SEVERE PAIN Last administered on 10/14/16 14:36; Start 10/07/16 at 10 :45 Furosemide (Lasix) 20 mg 1X ONCE IVP Last administered on 10/07/16 18:24; Start 10/07/16 at 12:00; Stop 10/07/16 at 12:01; Status DC Digoxin 500 mcg 500 mcg 1X ONCE IV Last administered on 10/07/16 22:38; Start 10/07/16 at 22:15; Stop 10/07/16 at 22:17; Status DC Micafungin Sodium/ Dextrose (Mycamine) 100 ml @ 100 mls/hr Q24H IV Last administered on 10/14/16 11:06; Start 10/08/16 at 09:00 Iohexol (Omnipaque 240 Mg/ml) 30 ml 1X ONCE PO Last administered on 10/08/16 11:47; Start 10/08/16 at 09:15; Stop 10/08/16 at 09:18; Status DC Iohexol (Omnipaque 300 Mg/ml) 75 ml 1X ONCE IV Last administered on 10/08/16 11:46; Start 10/08/16 at 09:15; Stop 10/08/16 at 09:18; Status DC Finasteride (Proscar) 5 mg DAILY PO Last administered on 10/14/16 08:22; Start 10/09/16 at 09:00 Methylprednisolone Acetate (Depo-Medrol 40mg Vial) 40 mg 1X ONCE IM ; Start 10/08/16 at 10:45; Stop 10/08/16 at 10:53; Status DC Methylprednisolone Acetate (Depo-Medrol 40mg Vial) 40 mg 1X ONCE IM ; Start 10/08/16 at 10:45; Stop 10/08/16 at 10:53; Status DC Bupivacaine HCl (Sensorcaine-Mpf 0.25%) 10 ml 1X ONCE IJ ; Start 10/08/16 at 10: 45; Stop 10/08/16 at 10:53; Status DC Digoxin (Lanoxin) 125 mcg DAILY PO Last administered on 10/14/16 08:22; Start 10/08/16 at 11:30 Aspirin (Children'S Aspirin) 325 mg DAILYWBKFT PO Last administered on 12:38; Start 10/08/16 at 11:30; Stop 10/08/16 at 13:30; Status DC Lactobacillus Acidophilus (Bacid, Danielle-Bid) 1 tab DAILY PO Last administered on 10/14/16 08:18; Start 10/08/16 at 13:00 Aspirin (Children'S Aspirin) 324 mg DAILYWBKFT PO Last administered on 08:19; Start 10/08/16 at 13:30 Oxycodone/ Acetaminophen (Percocet 10/325) 1 tab PRN Q6HRS PRN PO PAIN Last administered on 10/14/16 22:16; Start 10/09/16 at 10:30 Furosemide (Lasix) 20 mg 1X ONCE IVP Last administered on 10/09/16 16:54; Start 10/09/16 at 15:00; Stop 10/09/16 at 15:01; Status DC Urea ([place] Lo 40, X-Viate) 1 alejandro DAILY TP Last administered on 10/14/16 12:49; Start 10/09/16 at 18:00 Nystatin 5 ml 5 ml [id number] Last administered on 10/14/16 22:16; Start 06/18 at 13:00 Potassium Chloride (KCl Premix 10meq) 100 ml @ 100 mls/hr Q1H IV Last administered on 10/10/16 17:00; Start 10/10/16 at 14:00; Stop 10/10/16 at 17:59 ; Status DC Vancomycin HCl 1 each 1 each PRN DAILY PRN MC SEE COMMENTS Last administered on 10/14/16 06:06; Start 10/10/16 at 14:45 Vancomycin HCl 2 gm/Sodium Chloride 500 ml @ 250 mls/hr 1X ONCE IV Last administered on 10/10/16 15:30; Start 10/10/16 at 15:30; Stop 10/10/16 at 17:29 ; Status DC Vancomycin HCl/ Sodium Chloride (Iv Sodium Chloride 0.9% 250ml) 250 ml @ 167 mls/hr Q12H IV Last administered on 10/13/16 17:43; Start 10/11/16 at 05:00; Stop 10/14/16 at 05:57; Status DC Ondansetron HCl (Zofran) 4 mg PRN Q6HRS PRN IV Nausea; Start 10/13/16 at 12:30 ; Stop 10/14/16 at 12:29; Status DC Fentanyl Citrate (Fentanyl 2ml Vial) 25 mcg PRN Q5MIN PRN IV MILD PAIN; Start 10/13/16 at 12:30; Stop 10/14/16 at 12:29; Status DC Fentanyl Citrate (Fentanyl 2ml Vial) 50 mcg PRN Q5MIN PRN IV MODERATE PAIN; Start 10/13/16 at 12:30; Stop 10/14/16 at 12:29; Status DC Morphine Sulfate 1 mg 1 mg PRN Q10MIN PRN IV SEVERE PAIN; Start 10/13/16 at 12: 30; Stop 10/14/16 at 12:29; Status DC Lactated Ringer's (Iv Lactated Ringers) 1,000 ml @ 0 mls/hr Q0M IV ; Start at 12:23; Stop 10/14/16 at 00:22; Status DC Lidocaine HCl 2 ml 1X PRN PRN ID IV START; Start 10/13/16 at 12:30; Stop at 12:29; Status DC Hydromorphone HCl (Dilaudid) 0.5 mg PRN Q10MIN PRN IV SEV PAIN,Second choice; Start 10/13/16 at 12:30; Stop 10/14/16 at 12:29; Status DC Prochlorperazine Edisylate (Compazine) 5 mg PACU PRN PRN IV NAUSEA; Start 10/13 at 12:30; Stop 10/14/16 at 12:29; Status DC Vancomycin HCl 1 each 1 each 1X ONCE MC Last administered on 10/14/16 05:09; Start 10/14/16 at 04:30; Stop 10/14/16 at 04:31; Status DC Propofol (Diprivan) 20 ml @ As Directed STK-MED ONCE IV ; Start 10/13/16 at 15: 07; Stop 10/13/16 at 15:08; Status DC Lidocaine HCl 5 ml 5 ml STK-MED ONCE .ROUTE ; Start 10/13/16 at 15:07; Stop at 15:08; Status DC Propofol (Diprivan) 20 ml @ As Directed STK-MED ONCE IV ; Start 10/13/16 at 18: 42; Stop 10/13/16 at 18:43; Status DC Lidocaine HCl 100 mg STK-MED ONCE .ROUTE ; Start 10/13/16 at 18:42; Stop at 18:43; Status DC Ondansetron HCl (Zofran) 4 mg STK-MED ONCE .ROUTE ; Start 10/13/16 at 19:16; Stop 10/13/16 at 19:17; Status DC Phenylephrine HCl 1 mg STK-MED ONCE IV ; Start 10/13/16 at 19:16; Stop 10/13/16 at 19:17; Status DC Sevoflurane (Ultane) 30 ml STK-MED ONCE IH ; Start 10/13/16 at 19:28; Stop 10/13 at 19:29; Status DC Dexamethasone Sodium Phosphate (Decadron) 20 mg STK-MED ONCE .ROUTE ; Start at 19:29; Stop 10/13/16 at 19:30; Status DC Albuterol/ Ipratropium (Duoneb) 3 ml 1X ONCE NEB Last administered on 03:45; Start 10/14/16 at 03:45; Stop 10/14/16 at 03:46; Status DC Furosemide 20 mg 20 mg 1X ONCE IVP Last administered on 10/14/16 05:26; Start 10/14/16 at 05:15; Stop 10/14/16 at 05:16; Status DC Vancomycin HCl/ Sodium Chloride (Iv Sodium Chloride 0.9% 250ml) 250 ml @ 250 mls/hr Q12H IV Last administered on 10/15/16 09:05; Start 10/14/16 at 06:00 Vancomycin HCl 1 each 1X ONCE MC ; Start 10/15/16 at 20:30; Stop 10/15/16 at 20 :31 Furosemide (Lasix) 40 mg 1X ONCE IVP Last administered on 10/14/16t 10:35; Start 10/14/16 at 10:30; Stop 10/14/16 at 10:31; Status DC Alteplase, Recombinant (Cathflo) 2 mg 1X ONCE INT CAT Last administered on 05:17; Start 10/15/16 at 05:30; Stop 10/15/16 at 05:31; Status DC Active Scripts Active Reported Isopto Tears (Hypromellose) 15 Ml Drops 15 Ml OP Oxycodone Hcl 10 Mg Tablet 1 Tab PO QID Ocuvite Tablet (Vit A,C & E/Lutein/Minerals) 1 Each Tablet 1 Each PO Dulcolax (Bisacodyl) 10 Mg Supp.rect 10 Mg RC PRN DAILY PRN Milk Of Magnesia (Magnesium Hydroxide) 400 Mg/5 Ml Oral.susp 400 Mg PO Simvastatin 20 Mg Tablet 1 Tab PO QHS Refresh Optive Eye Drops (Carboxymethylcellulos/Glycerin) 15 Ml Drops 1 Drop EACHEYE BID Tamsulosin Hcl 0.4 Mg Cap.er.24h 1 Cap PO DAILY Potassium Chloride Oral Liquid (Potassium Chloride) 20 Meq/15 Ml Liquid 10 Meq PEG DAILY Aspir 81 (Aspirin) 81 Mg Tablet.dr 1 Tab PO DAILY Furosemide 40 Mg Tablet 1 Tab PO DAILY Meloxicam 7.5 Mg Tablet 1 Tab PO DAILY Trazodone Hcl 50 Mg Tablet 1 Tab PO QHS Mucinex (Guaifenesin) 600 Mg Tablet.er 600 Mg PO Vitals/I & O Vital Sign - Last 24 Hours 10/14/16 10/14/16 10/14/16 10/14/16 10:50 10:59 12:27 14:36 Pulse 89 Resp 16 18 B/P 119/51 Pulse Ox 100 84 100 97 O2 Delivery BiPAP/CPAP Venturi Mask BiPAP/CPAP BiPAP/CPAP 10/14/16 10/14/16 10/14/16 10/14/16 15:08 15:25 15:36 16:31 Temp 98.0 98.0 Pulse 79 Resp 23 18 B/P 118/48 Pulse Ox 100 96 98 100 O2 Delivery BiPAP/CPAP BiPAP/CPAP BiPAP/CPAP BiPAP/CPAP 10/14/16 10/14/16 10/14/16 10/14/16 19:00 19:22 22:16 23:20 Temp 98.5 98.5 Pulse 72 Resp 20 20 20 B/P 125/52 Pulse Ox 100 100 40 98 O2 Delivery BiPAP/CPAP BiPAP/CPAP BiPAP/CPAP BiPAP/CPAP O2 Flow Rate 15.0 10/14/16 10/14/16 10/15/16 10/15/16 23:27 23:27 01:38 03:08 Temp 97.9 98.2 97.9 98.2 Pulse 67 67 Resp 20 20 B/P 104/59 108/44 Pulse Ox 100 100 100 99 O2 Delivery BiPAP/CPAP BiPAP/CPAP BiPAP/CPAP BiPAP/CPAP 10/15/16 07:00 Temp 98.6 98.6 Pulse 67 Resp 18 B/P 143/59 Pulse Ox 98 O2 Delivery Nasal Cannula O2 Flow Rate 3.0 Intake and Output 10/14/16 10/14/16 10/15/16 15:00 23:00 07:00 Intake Total 675 ml 820 ml 906 ml Output Total 650 ml 650 ml Balance 675 ml 170 ml 256 ml RODRIGUE MAYNARD MD Oct 15, 2016 10:32
[2016-10-15] MEDS: NYSTATIN TOPICAL POWDER 15GM BOTTLE. TP SCH ×2 (10:42→21:11)
[2016-10-15] MEDS: UREA 40% TOPICAL CREAM 28.3GM TUBE. TP SCH (10:42)
--- NOTE | 2016-10-15 11:06 | PDOC ---
PULMONARY PROGRESS NOTES Subjective Better today off BIPAP more awake Vitals Vital Signs Date Time Temp Pulse Resp B/P Pulse Ox O2 Delivery O2 Flow Rate FiO2 10/15/16 10:24 87 144/68 10/15/16 10:23 18 Nasal Cannula 3.0 10/15/16 07:00 98.6 98 98.6 Lungs: Crackles Cardiovascular: S1, S2 Abdomen: Soft, Non-tender Neuro Exam: Alert Extremities: Other (1+edema) Skin: Warm Labs Laboratory Tests Test 10/14/16 05:00 10/14/16 09:54 10/14/16 16:37 10/14/16 17:32 White Blood Count 13.4x10^3/uL (4.0-11.0) Red Blood Count 3.26x10^6/uL (4.30-5.70) Hemoglobin 10.4g/dL (13.0-17.5) Hematocrit 30.2% (39.0-53.0) Mean Corpuscular Volume 93fL (79-100) Mean Corpuscular Hemoglobin 32pg (25-35) Mean Corpuscular Hemoglobin Concent 34g/dL (31-37) Red Cell Distribution Width 14.6% (11.5-14.5) Platelet Count 313x10^3/uL (140-400) Neutrophils (%) (Auto) 91% (31-73) Lymphocytes (%) (Auto) 4% (24-48) Monocytes (%) (Auto) 4% (0-9) Eosinophils (%) (Auto) 0% (0-3) Basophils (%) (Auto) 0% (0-3) Neutrophils # (Auto) 12.3x10^3uL (1.8-7.7) Lymphocytes # (Auto) 0.6x10^3/uL (1.0-4.8) Monocytes # (Auto) 0.6x10^3/uL (0.0-1.1) Eosinophils # (Auto) 0.0x10^3/uL (0.0-0.7) Basophils # (Auto) 0.0x10^3/uL (0.0-0.2) Segmented Neutrophils % 87% (35-66) Band Neutrophils % 6% (0-9) Lymphocytes % 3% (24-48) Monocytes % 2% (0-10) Myelocytes % 2% (0-0) Platelet Estimate Adequate (ADEQUATE) Sodium Level 143mmol/L (136-145) Potassium Level 4.7mmol/L (3.5-5.1) Chloride Level 104mmol/L (98-107) Carbon Dioxide Level 36mmol/L (21-32) Anion Gap 3 (6-14) Blood Urea Nitrogen 21mg/dL (8-26) Creatinine 1.0mg/dL (0.7-1.3) Estimated GFR (Cockcroft-Gault) 72.8 Glucose Level 156mg/dL (70-99) Calcium Level 8.7mg/dL (8.5-10.1) Vancomycin Level Trough 21.5mcg/mL (10.0-20.0) Vancomycin Last Dose Date 10/13/16 Vancomycin Last Dose Time 1700 O2 Saturation 93% (92-99) 80% (92-99) 92% (92-99) Arterial Blood pH 7.29 (7.35-7.45) 7.36 (7.35-7.45) 7.34 (7.35-7.45) Arterial Blood pCO2 at Patient Temp 67mmHg (35-46) 66mmHg (35-46) 66mmHg (35-46) Arterial Blood pO2 at Patient Temp 77mmHg (65-108) 43mmHg (65-108) 66mmHg (65-108) Arterial Blood HCO3 32mmol/L (21-28) 36mmol/L (21-28) 35mmol/L (21-28) Arterial Blood Base Excess 4mmol/L (-3-3) 8mmol/L (-3-3) 7mmol/L (-3-3) FiO2 50% 50% 50% Test 10/15/16 07:38 White Blood Count 8.4x10^3/uL (4.0-11.0) Red Blood Count 2.93x10^6/uL (4.30-5.70) Hemoglobin 9.0g/dL (13.0-17.5) Hematocrit 27.6% (39.0-53.0) Mean Corpuscular Volume 94fL (79-100) Mean Corpuscular Hemoglobin 31pg (25-35) Mean Corpuscular Hemoglobin Concent 33g/dL (31-37) Red Cell Distribution Width 14.6% (11.5-14.5) Platelet Count 264x10^3/uL (140-400) Neutrophils (%) (Auto) 73% (31-73) Lymphocytes (%) (Auto) 13% (24-48) Monocytes (%) (Auto) 7% (0-9) Eosinophils (%) (Auto) 7% (0-3) Basophils (%) (Auto) 1% (0-3) Neutrophils # (Auto) 6.1x10^3uL (1.8-7.7) Lymphocytes # (Auto) 1.1x10^3/uL (1.0-4.8) Monocytes # (Auto) 0.6x10^3/uL (0.0-1.1) Eosinophils # (Auto) 0.6x10^3/uL (0.0-0.7) Basophils # (Auto) 0.0x10^3/uL (0.0-0.2) Sodium Level 143mmol/L (136-145) Potassium Level 3.7mmol/L (3.5-5.1) Chloride Level 106mmol/L (98-107) Carbon Dioxide Level 37mmol/L (21-32) Anion Gap 0 (6-14) Blood Urea Nitrogen 35mg/dL (8-26) Creatinine 1.1mg/dL (0.7-1.3) Estimated GFR (Cockcroft-Gault) 65.3 Glucose Level 135mg/dL (70-99) Calcium Level 8.4mg/dL (8.5-10.1) Laboratory Tests Test 10/14/16 16:37 10/14/16 17:32 10/15/16 07:38 O2 Saturation 80% (92-99) 92% (92-99) Arterial Blood pH 7.36 (7.35-7.45) 7.34 (7.35-7.45) Arterial Blood pCO2 at Patient Temp 66mmHg (35-46) 66mmHg (35-46) Arterial Blood pO2 at Patient Temp 43mmHg (65-108) 66mmHg (65-108) Arterial Blood HCO3 36mmol/L (21-28) 35mmol/L (21-28) Arterial Blood Base Excess 8mmol/L (-3-3) 7mmol/L (-3-3) FiO2 50% 50% White Blood Count 8.4x10^3/uL (4.0-11.0) Red Blood Count 2.93x10^6/uL (4.30-5.70) Hemoglobin 9.0g/dL (13.0-17.5) Hematocrit 27.6% (39.0-53.0) Mean Corpuscular Volume 94fL (79-100) Mean Corpuscular Hemoglobin 31pg (25-35) Mean Corpuscular Hemoglobin Concent 33g/dL (31-37) Red Cell Distribution Width 14.6% (11.5-14.5) Platelet Count 264x10^3/uL (140-400) Neutrophils (%) (Auto) 73% (31-73) Lymphocytes (%) (Auto) 13% (24-48) Monocytes (%) (Auto) 7% (0-9) Eosinophils (%) (Auto) 7% (0-3) Basophils (%) (Auto) 1% (0-3) Neutrophils # (Auto) 6.1x10^3uL (1.8-7.7) Lymphocytes # (Auto) 1.1x10^3/uL (1.0-4.8) Monocytes # (Auto) 0.6x10^3/uL (0.0-1.1) Eosinophils # (Auto) 0.6x10^3/uL (0.0-0.7) Basophils # (Auto) 0.0x10^3/uL (0.0-0.2) Sodium Level 143mmol/L (136-145) Potassium Level 3.7mmol/L (3.5-5.1) Chloride Level 106mmol/L (98-107) Carbon Dioxide Level 37mmol/L (21-32) Anion Gap 0 (6-14) Blood Urea Nitrogen 35mg/dL (8-26) Creatinine 1.1mg/dL (0.7-1.3) Estimated GFR (Cockcroft-Gault) 65.3 Glucose Level 135mg/dL (70-99) Calcium Level 8.4mg/dL (8.5-10.1) Medications Active Scripts Medications Dose Route/Sig Days Date Category Isopto Tears (Hypromellose) 15 Ml Drops 15 Ml OP 10/06/16 Reported Oxycodone Hcl 10 Mg Tablet 1 Tab PO QID 10/06/16 Reported Ocuvite Tablet (Vit A,C & E/Lutein/Minerals) 1 Each Tablet 1 Each PO 10/06/16 Reported Dulcolax (Bisacodyl) 10 Mg Supp.rect 10 Mg RC PRN DAILY PRN 10/06/16 Reported Milk Of Magnesia (Magnesium Hydroxide) 400 Mg/5 Ml Oral.susp 400 Mg PO 10/06/16 Reported Simvastatin 20 Mg Tablet 1 Tab PO QHS 10/06/16 Reported Refresh Optive Eye Drops (Carboxymethylcellulos/Glycerin) 15 Ml Drops 1 Drop EACHEYE BID 10/06/16 Reported Tamsulosin Hcl 0.4 Mg Cap.er.24h 1 Cap PO DAILY 10/06/16 Reported Potassium Chloride Oral Liquid (Potassium Chloride) 20 Meq/15 Ml Liquid 10 Meq PEG DAILY 10/06/16 Reported Aspir 81 (Aspirin) 81 Mg Tablet.dr 1 Tab PO DAILY 10/06/16 Reported Furosemide 40 Mg Tablet 1 Tab PO DAILY 10/06/16 Reported Meloxicam 7.5 Mg Tablet 1 Tab PO DAILY 10/06/16 Reported Trazodone Hcl 50 Mg Tablet 1 Tab PO QHS 10/06/16 Reported Mucinex (Guaifenesin) 600 Mg Tablet.er 600 Mg PO 10/06/16 Reported Impression . 1. Acute hypoxic respiratory failure, multifactorial on bipap 2. Questionable mild chronic obstructive pulmonary disease 3. Hyponatremia 4. Abnormal chest x-ray with mild cardiomegaly and volume loss, left lower lobe. 5. History of coronary artery disease. 6. History of chronic percutaneous endoscopic gastrostomy tube. He uses enteral nutrition as well as oral nutrition. 7. Leukocytosis,/ fever, improved Plan . PRN BIPAP CXR REVIEWED BETTER WITH LASIX S/P Peg replacement on 10/13 SPOKE WITH FAMILY MEMBER "DAUGHTER", SHE WAS UPSET THAT HE IS NOT IMPROVING AND SHE HAS GOTTEN NO ANSWERS. I ANSWERED ALL OF HER QUESTIONS MOMO HUERTAS MD Oct 15, 2016 11:06
[2016-10-15 12:16] VITALS: BP 144/68
[2016-10-15] MEDS: VANCOMYCIN PER PHARMACY MC PRN (13:11)
[2016-10-15] MEDS: ENOXAPARIN 40 MG/0.4 ML DISP.SYRIN. SQ SCH (14:43)
[2016-10-15 15:00] VITALS: BP 158/59
[2016-10-15] MEDS ORDERED: CYANOCOBALAMIN (VITAMIN B-12) 1,000 MCG/ML VIAL IM SCH (16:00)
[2016-10-15] MEDS: LOPERAMIDE 2 MG/10 ML ORAL SOLUTION. PEG PRN (18:17)
[2016-10-15 19:00] VITALS: BP 145/61
--- NOTE | 2016-10-15 19:55 | PDOC ---
PROGRESS NOTES Chief Complaint Chief Complaint LOC SOB ASSESSMENT AND PLAN: 1. CHF: systolic (hx EF 50%), acute on chronic: much improved clinically. IV lasix for pulm sx. BiPAP PRN. nebs, suppl O2. CXR with borderline vasc congestion 2. AMS: resolved. metabolic encephalopathy likely 2/2 hypoxia, poss sedative meds in rehab; at recent [facility] admit, had hallucinations 3. Afib w/ RVR: resolved, back in NSR. on dig 4. Hx CAD with CABG: no acute issues; cont home meds 5. HTN: well controlled 6. HLD: on statin 7. 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 AAA: 4cm, stable 9. Dysphagia: PEG placement 10/[address] Hammond. TF started 10. Diarrhea: was started on fibersource for TF. d/w dietary to change on trial basis. loperamide PRN (Stool was C.diff neg) 11. L olecranon abscess/gouty tophus: s/p I&D on 10/[address] Calderon. wound care as per surg. on vanco/Zosyn. micro pending 12. OA: on Mobic 13. BPH: Tinsley in CCU 14. Dementia: mild at baseline. communicating well today 15. Dispo: transfer to floor Vitals Vitals Vital Signs Date Time Temp Pulse Resp B/P Pulse Ox O2 Delivery O2 Flow Rate FiO2 10/15/16 15:00 98.6 74 18 158/59 94 Nasal Cannula 98.6 10/15/16 11:23 3.0 Physical Exam General: No acute distress, Other (lethargic, on BiPAP) Heart: Regular rate, Normal S1, Normal S2 Lungs: Crackles Abdomen: Soft, No tenderness, Other (peg in mid abd) Extremities: No clubbing, No cyanosis, Other (L Ue in thick gauze dressing) Skin: Other Labs LABS Laboratory Tests Test 10/15/16 07:38 White Blood Count 8.4x10^3/uL (4.0-11.0) Red Blood Count 2.93x10^6/uL (4.30-5.70) Hemoglobin 9.0g/dL (13.0-17.5) Hematocrit 27.6% (39.0-53.0) Mean Corpuscular Volume 94fL (79-100) Mean Corpuscular Hemoglobin 31pg (25-35) Mean Corpuscular Hemoglobin Concent 33g/dL (31-37) Red Cell Distribution Width 14.6% (11.5-14.5) Platelet Count 264x10^3/uL (140-400) Neutrophils (%) (Auto) 73% (31-73) Lymphocytes (%) (Auto) 13% (24-48) Monocytes (%) (Auto) 7% (0-9) Eosinophils (%) (Auto) 7% (0-3) Basophils (%) (Auto) 1% (0-3) Neutrophils # (Auto) 6.1x10^3uL (1.8-7.7) Lymphocytes # (Auto) 1.1x10^3/uL (1.0-4.8) Monocytes # (Auto) 0.6x10^3/uL (0.0-1.1) Eosinophils # (Auto) 0.6x10^3/uL (0.0-0.7) Basophils # (Auto) 0.0x10^3/uL (0.0-0.2) Sodium Level 143mmol/L (136-145) Potassium Level 3.7mmol/L (3.5-5.1) Chloride Level 106mmol/L (98-107) Carbon Dioxide Level 37mmol/L (21-32) Anion Gap 0 (6-14) Blood Urea Nitrogen 35mg/dL (8-26) Creatinine 1.1mg/dL (0.7-1.3) Estimated GFR (Cockcroft-Gault) 65.3 Glucose Level 135mg/dL (70-99) Calcium Level 8.4mg/dL (8.5-10.1) Review of Systems Review of Systems lower back/bottom sore from sitting. IVY Gray arm, MD Oct 15, 2016 19:55
[2016-10-15] MEDS: SIMVASTATIN 20 MG TABLET PO SCH (20:12)
[2016-10-15] MEDS: PANTOPRAZOLE IV PUSH 40 MG VIAL. IVP SCH (20:13)
[2016-10-15 22:08] VITALS: BP 164/70
[2016-10-16] VITALS (12 sets, daily range): BP systolic 90–190; BP diastolic 55–80
[2016-10-16] MEDS: LOPERAMIDE 2 MG/10 ML ORAL SOLUTION. PEG PRN ×2 (00:01→21:23)
[2016-10-16] MEDS: PIPERACILLIN/TAZOBACTAM 4.5 GM in IV NORMAL SALINE 100ML 100 ML IV SCH ×2 (00:01→06:30)
[2016-10-16] MEDS: VANCOMYCIN PER PHARMACY MC PRN (01:36)
[2016-10-16 03:22] LABS: BASO # 0.1 x10^3/uL (0.0-0.2); BASO % 1 % (0-3); EOS % 8 % (0-3); HEMATOCRIT 25.7 % (39.0-53.0); HEMOGLOBIN 8.2 g/dL (13.0-17.5); LYMPH # 1.9 x10^3/uL (1.0-4.8); LYMPH % 17 % (24-48); MEAN CORPUSCULAR HEMOGLOBIN 30 pg (25-35); MEAN CORPUSCULAR HGB CONC 32 g/dL (31-37); MEAN CORPUSCULAR VOLUME 94 fL (79-100); MONO % 7 % (0-9); NEUT % 67 % (31-73); PLATELET COUNT 320 x10^3/uL (140-400); RED BLOOD COUNT 2.75 x10^6/uL (4.30-5.70); RED CELL DISTRIBUTION WIDTH 14.5 % (11.5-14.5); WHITE BLOOD COUNT 10.9 x10^3/uL (4.0-11.0)
[2016-10-16 03:36] LABS: INR 1.3 (0.8-1.1); PROTHROMBIN TIME PATIENT 15.8 SEC (11.7-14.0)
[2016-10-16 03:44] LABS: CALCIUM 8.2 mg/dL (8.5-10.1); CREATININE 1.2 mg/dL (0.7-1.3); POTASSIUM 4.4 mmol/L (3.5-5.1)
--- NOTE | 2016-10-16 08:02 | PDOC ---
Infectious Disease Note Subjective Subjective Talking but more mumbling. Hard to understand Received pain med last pm per family request per nursing ROS ROS Hard to obtain Vital Sign Vital Signs Vital Signs Date Time Temp Pulse Resp B/P Pulse Ox O2 Delivery O2 Flow Rate FiO2 10/16/16 03:00 98.2 70 18 175/64 97 Nasal Cannula 3.0 98.2 Physical Exam PHYSICAL EXAM GENERAL: NAD, Alert but more confused this am. Looks a little pale HEENT: PERRLA, Oral cavity less dry. No dried secretions LUNGS: CTA HEART: S1S2 ABD: Obese, soft, No guarding to palpation.PEG : Tinsley. Scrotal swelling EXT: BLE edema. . Left great toe bandaged. Left elbow dressed CONVEYANCER: Alert, SKIN: No rash IV: PICC RUE Labs Lab Laboratory Tests Test 10/15/16 21:50 10/16/16 02:00 Vancomycin Level Trough 27.7mcg/mL (10.0-20.0) Vancomycin Last Dose Date 10/15/16 Vancomycin Last Dose Time 0900 White Blood Count 10.9x10^3/uL (4.0-11.0) Red Blood Count 2.75x10^6/uL (4.30-5.70) Hemoglobin 8.2g/dL (13.0-17.5) Hematocrit 25.7% (39.0-53.0) Mean Corpuscular Volume 94fL (79-100) Mean Corpuscular Hemoglobin 30pg (25-35) Mean Corpuscular Hemoglobin Concent 32g/dL (31-37) Red Cell Distribution Width 14.5% (11.5-14.5) Platelet Count 320x10^3/uL (140-400) Neutrophils (%) (Auto) 67% (31-73) Lymphocytes (%) (Auto) 17% (24-48) Monocytes (%) (Auto) 7% (0-9) Eosinophils (%) (Auto) 8% (0-3) Basophils (%) (Auto) 1% (0-3) Neutrophils # (Auto) 7.3x10^3uL (1.8-7.7) Lymphocytes # (Auto) 1.9x10^3/uL (1.0-4.8) Monocytes # (Auto) 0.8x10^3/uL (0.0-1.1) Eosinophils # (Auto) 0.8x10^3/uL (0.0-0.7) Basophils # (Auto) 0.1x10^3/uL (0.0-0.2) Prothrombin Time 15.8SEC (11.7-14.0) Prothromb Time International Ratio 1.3 (0.8-1.1) Sodium Level 146mmol/L (136-145) Potassium Level 4.4mmol/L (3.5-5.1) Chloride Level 108mmol/L (98-107) Carbon Dioxide Level 33mmol/L (21-32) Anion Gap 5 (6-14) Blood Urea Nitrogen 45mg/dL (8-26) Creatinine 1.2mg/dL (0.7-1.3) Estimated GFR (Cockcroft-Gault) 59.0 Glucose Level 116mg/dL (70-99) Calcium Level 8.2mg/dL (8.5-10.1) Magnesium Level 2.5mg/dL (1.8-2.4) Objective Assessment Leukocytosis - increased ? post op/Dexamethasone 10/13 with surgery/ ? reactive with GI bleed GI bleed - Bloody stools overnight per nursing and high PEG residuals Left elbow effusion s/p I and D 10/13. + Crystals. Cults neg. Gout S/p PEG replacement 10/13 Encephalopathy - worse today. Fever - better Pneumonia - Left effusion. Debility Gluteal ulcer/decub Diarrhea. c. diff negative s/p nails debrided x 10 with microbleed to left hallux. 10/09 Inguinal hernia Plan Plan of Care Await Gi F/u Cont Zosyn (10/06) but adjust dose and micafungin (10/08) Vanc (10/10) - wean soon F/u Blood cults times 2 and surgical cult neg Monitor labs in am/cultures RAÚL SCHMITT MD Oct 16, 2016 08:02
--- NOTE | 2016-10-16 08:22 | PDOC ---
PULMONARY PROGRESS NOTES Subjective Better today off BIPAP more awake, has loose bm, ? blood. on 02. no pain Vitals Vital Signs Date Time Temp Pulse Resp B/P Pulse Ox O2 Delivery O2 Flow Rate FiO2 10/16/16 03:00 98.2 70 18 175/64 97 Nasal Cannula 3.0 98.2 Comments discussed w rn, ludmila other sys otherwise neg General: Alert HEENT: Other (nc, at, perrl, nose clear) Lungs: Crackles Cardiovascular: S1, S2 Abdomen: Soft, Non-tender Neuro Exam: Alert Extremities: Other (1+edema) Skin: Warm Labs Laboratory Tests Test 10/14/16 09:54 10/14/16 16:37 10/14/16 17:32 10/15/16 07:38 O2 Saturation 93% (92-99) 80% (92-99) 92% (92-99) Arterial Blood pH 7.29 (7.35-7.45) 7.36 (7.35-7.45) 7.34 (7.35-7.45) Arterial Blood pCO2 at Patient Temp 67mmHg (35-46) 66mmHg (35-46) 66mmHg (35-46) Arterial Blood pO2 at Patient Temp 77mmHg (65-108) 43mmHg (65-108) 66mmHg (65-108) Arterial Blood HCO3 32mmol/L (21-28) 36mmol/L (21-28) 35mmol/L (21-28) Arterial Blood Base Excess 4mmol/L (-3-3) 8mmol/L (-3-3) 7mmol/L (-3-3) FiO2 50% 50% 50% White Blood Count 8.4x10^3/uL (4.0-11.0) Red Blood Count 2.93x10^6/uL (4.30-5.70) Hemoglobin 9.0g/dL (13.0-17.5) Hematocrit 27.6% (39.0-53.0) Mean Corpuscular Volume 94fL (79-100) Mean Corpuscular Hemoglobin 31pg (25-35) Mean Corpuscular Hemoglobin Concent 33g/dL (31-37) Red Cell Distribution Width 14.6% (11.5-14.5) Platelet Count 264x10^3/uL (140-400) Neutrophils (%) (Auto) 73% (31-73) Lymphocytes (%) (Auto) 13% (24-48) Monocytes (%) (Auto) 7% (0-9) Eosinophils (%) (Auto) 7% (0-3) Basophils (%) (Auto) 1% (0-3) Neutrophils # (Auto) 6.1x10^3uL (1.8-7.7) Lymphocytes # (Auto) 1.1x10^3/uL (1.0-4.8) Monocytes # (Auto) 0.6x10^3/uL (0.0-1.1) Eosinophils # (Auto) 0.6x10^3/uL (0.0-0.7) Basophils # (Auto) 0.0x10^3/uL (0.0-0.2) Sodium Level 143mmol/L (136-145) Potassium Level 3.7mmol/L (3.5-5.1) Chloride Level 106mmol/L (98-107) Carbon Dioxide Level 37mmol/L (21-32) Anion Gap 0 (6-14) Blood Urea Nitrogen 35mg/dL (8-26) Creatinine 1.1mg/dL (0.7-1.3) Estimated GFR (Cockcroft-Gault) 65.3 Glucose Level 135mg/dL (70-99) Calcium Level 8.4mg/dL (8.5-10.1) Test 10/15/16 21:50 10/16/16 02:00 Vancomycin Level Trough 27.7mcg/mL (10.0-20.0) Vancomycin Last Dose Date 10/15/16 Vancomycin Last Dose Time 0900 White Blood Count 10.9x10^3/uL (4.0-11.0) Red Blood Count 2.75x10^6/uL (4.30-5.70) Hemoglobin 8.2g/dL (13.0-17.5) Hematocrit 25.7% (39.0-53.0) Mean Corpuscular Volume 94fL (79-100) Mean Corpuscular Hemoglobin 30pg (25-35) Mean Corpuscular Hemoglobin Concent 32g/dL (31-37) Red Cell Distribution Width 14.5% (11.5-14.5) Platelet Count 320x10^3/uL (140-400) Neutrophils (%) (Auto) 67% (31-73) Lymphocytes (%) (Auto) 17% (24-48) Monocytes (%) (Auto) 7% (0-9) Eosinophils (%) (Auto) 8% (0-3) Basophils (%) (Auto) 1% (0-3) Neutrophils # (Auto) 7.3x10^3uL (1.8-7.7) Lymphocytes # (Auto) 1.9x10^3/uL (1.0-4.8) Monocytes # (Auto) 0.8x10^3/uL (0.0-1.1) Eosinophils # (Auto) 0.8x10^3/uL (0.0-0.7) Basophils # (Auto) 0.1x10^3/uL (0.0-0.2) Prothrombin Time 15.8SEC (11.7-14.0) Prothromb Time International Ratio 1.3 (0.8-1.1) Sodium Level 146mmol/L (136-145) Potassium Level 4.4mmol/L (3.5-5.1) Chloride Level 108mmol/L (98-107) Carbon Dioxide Level 33mmol/L (21-32) Anion Gap 5 (6-14) Blood Urea Nitrogen 45mg/dL (8-26) Creatinine 1.2mg/dL (0.7-1.3) Estimated GFR (Cockcroft-Gault) 59.0 Glucose Level 116mg/dL (70-99) Calcium Level 8.2mg/dL (8.5-10.1) Magnesium Level 2.5mg/dL (1.8-2.4) Laboratory Tests Test 10/15/16 21:50 10/16/16 02:00 Vancomycin Level Trough 27.7mcg/mL (10.0-20.0) Vancomycin Last Dose Date 10/15/16 Vancomycin Last Dose Time 0900 White Blood Count 10.9x10^3/uL (4.0-11.0) Red Blood Count 2.75x10^6/uL (4.30-5.70) Hemoglobin 8.2g/dL (13.0-17.5) Hematocrit 25.7% (39.0-53.0) Mean Corpuscular Volume 94fL (79-100) Mean Corpuscular Hemoglobin 30pg (25-35) Mean Corpuscular Hemoglobin Concent 32g/dL (31-37) Red Cell Distribution Width 14.5% (11.5-14.5) Platelet Count 320x10^3/uL (140-400) Neutrophils (%) (Auto) 67% (31-73) Lymphocytes (%) (Auto) 17% (24-48) Monocytes (%) (Auto) 7% (0-9) Eosinophils (%) (Auto) 8% (0-3) Basophils (%) (Auto) 1% (0-3) Neutrophils # (Auto) 7.3x10^3uL (1.8-7.7) Lymphocytes # (Auto) 1.9x10^3/uL (1.0-4.8) Monocytes # (Auto) 0.8x10^3/uL (0.0-1.1) Eosinophils # (Auto) 0.8x10^3/uL (0.0-0.7) Basophils # (Auto) 0.1x10^3/uL (0.0-0.2) Prothrombin Time 15.8SEC (11.7-14.0) Prothromb Time International Ratio 1.3 (0.8-1.1) Sodium Level 146mmol/L (136-145) Potassium Level 4.4mmol/L (3.5-5.1) Chloride Level 108mmol/L (98-107) Carbon Dioxide Level 33mmol/L (21-32) Anion Gap 5 (6-14) Blood Urea Nitrogen 45mg/dL (8-26) Creatinine 1.2mg/dL (0.7-1.3) Estimated GFR (Cockcroft-Gault) 59.0 Glucose Level 116mg/dL (70-99) Calcium Level 8.2mg/dL (8.5-10.1) Magnesium Level 2.5mg/dL (1.8-2.4) Medications Active Scripts Medications Dose Route/Sig Days Date Category Isopto Tears (Hypromellose) 15 Ml Drops 15 Ml OP 10/06/16 Reported Oxycodone Hcl 10 Mg Tablet 1 Tab PO QID 10/06/16 Reported Ocuvite Tablet (Vit A,C & E/Lutein/Minerals) 1 Each Tablet 1 Each PO 10/06/16 Reported Dulcolax (Bisacodyl) 10 Mg Supp.rect 10 Mg RC PRN DAILY PRN 10/06/16 Reported Milk Of Magnesia (Magnesium Hydroxide) 400 Mg/5 Ml Oral.susp 400 Mg PO 10/06/16 Reported Simvastatin 20 Mg Tablet 1 Tab PO QHS 10/06/16 Reported Refresh Optive Eye Drops (Carboxymethylcellulos/Glycerin) 15 Ml Drops 1 Drop EACHEYE BID 10/06/16 Reported Tamsulosin Hcl 0.4 Mg Cap.er.24h 1 Cap PO DAILY 10/06/16 Reported Potassium Chloride Oral Liquid (Potassium Chloride) 20 Meq/15 Ml Liquid 10 Meq PEG DAILY 10/06/16 Reported Aspir 81 (Aspirin) 81 Mg Tablet.dr 1 Tab PO DAILY 10/06/16 Reported Furosemide 40 Mg Tablet 1 Tab PO DAILY 10/06/16 Reported Meloxicam 7.5 Mg Tablet 1 Tab PO DAILY 10/06/16 Reported Trazodone Hcl 50 Mg Tablet 1 Tab PO QHS 10/06/16 Reported Mucinex (Guaifenesin) 600 Mg Tablet.er 600 Mg PO 10/06/16 Reported Comments cxr reviewed, 1. Cardiomegaly with borderline vascular congestion. 2. Unchanged pleural fluid and atelectasis in the left base. 3. Resolving mild right basilar opacities. Impression . 1. Acute hypoxic respiratory failure, multifactorial on bipap 2. Questionable mild chronic obstructive pulmonary disease 3. Hyponatremia 4. Abnormal chest x-ray with mild cardiomegaly and volume loss, left lower lobe. 5. History of coronary artery disease. 6. History of chronic percutaneous endoscopic gastrostomy tube. He uses enteral nutrition as well as oral nutrition. 7. Leukocytosis,/ fever, improved 8. gib, gi following Plan . PRN BIPAP 02 TITRATION CXR REVIEWED BETTER WITH LASIX S/P Peg replacement on 10/13 PROTONIX IV, FOLLOW GI REC START BRONCHODILATORS DISCUSSED W LAURIE ORELLANA MD Oct 16, 2016 08:22
[2016-10-16] MEDS: NYSTATIN 100,000 UNITS/ML 5 ML ORAL.SUSP. SWSW SCH ×4 (08:46→21:23)
[2016-10-16] MEDS: POTASSIUM CHLORIDE 20 MEQ/15 ML ORAL LIQUID. PEG SCH (08:46)
[2016-10-16] MEDS: LACTOBACILLUS ACIDOPH & BULGAR 1 TABLET. PO SCH (08:46)
[2016-10-16] MEDS: ASPIRIN 81 MG TAB.CHEW PO SCH (08:46)
[2016-10-16] MEDS: FUROSEMIDE 40 MG TABLET PO SCH (08:47)
[2016-10-16] MEDS: DIGOXIN 125 MCG TABLET PO SCH (08:47)
[2016-10-16] MEDS: FINASTERIDE 5 MG TABLET PO SCH (08:48)
[2016-10-16] MEDS: GUAIFENESIN 200 MG/10 ML LIQUID. PO SCH ×4 (08:48→21:23)
[2016-10-16] MEDS: MULTIVITAMIN EYE FORMULA CAPSULE. PO SCH (08:48)
[2016-10-16] MEDS: MELOXICAM 7.5 MG TABLET PO SCH (08:48)
[2016-10-16] MEDS: VANCOMYCIN 1 GM in IV NORMAL SALINE 250ML 250 ML IV SCH (08:59)
[2016-10-16] MEDS: NYSTATIN TOPICAL POWDER 15GM BOTTLE. TP SCH ×2 (09:03→21:24)
[2016-10-16] MEDS: UREA 40% TOPICAL CREAM 28.3GM TUBE. TP SCH (09:03)
[2016-10-16] MEDS: PANTOPRAZOLE IV PUSH 40 MG VIAL. IVP SCH (09:05)
--- NOTE | 2016-10-16 09:50 | PDOC ---
PROGRESS NOTES Assessment Problems Medical Problems: (1) Altered mental status Status: Acute (2) Gouty arthropathy, chronic, with tophi Status: Acute (3) Hospital acquired PNA Status: Acute Metabolic encephalopathy. Dementia, S/p PEG replacement No evidence of acute CVA, MRI done 10/07 Plan Continue treatment of infection, medical diseases Will follow Subjective None Objective Vital Signs Date Time Temp Pulse Resp B/P Pulse Ox O2 Delivery O2 Flow Rate FiO2 10/16/16 08:47 79 190/80 10/16/16 07:55 98.2 24 97 Nasal Cannula 3.0 98.2 Intake and Output 10/16/16 07:00 Intake Total 1390 ml Output Total 1280 ml Balance 110 ml Tube Feeding 1190 ml Other 200 ml Output Urine Total 1280 ml # Bowel Movements 4 PHYSICAL EXAM A llittle more alert, does tell me his name, follows a few commands PERRL. EOMI. CN: no focal findings. Muscle tone: normal. Muscle strength: not cooperative, moves all extremities DTR: 2+ Plantar reflex: flexor Gait: not examined in bed. Sensory exam: no abnormal findings. No cerebellar signs elicited. Review of Relevant I have reviewed the following items cassidy (where applicable) has been applied. Labs Laboratory Tests Test 10/14/16 09:54 10/14/16 16:37 10/14/16 17:32 10/15/16 07:38 O2 Saturation 93% (92-99) 80% (92-99) 92% (92-99) Arterial Blood pH 7.29 (7.35-7.45) 7.36 (7.35-7.45) 7.34 (7.35-7.45) Arterial Blood pCO2 at Patient Temp 67mmHg (35-46) 66mmHg (35-46) 66mmHg (35-46) Arterial Blood pO2 at Patient Temp 77mmHg (65-108) 43mmHg (65-108) 66mmHg (65-108) Arterial Blood HCO3 32mmol/L (21-28) 36mmol/L (21-28) 35mmol/L (21-28) Arterial Blood Base Excess 4mmol/L (-3-3) 8mmol/L (-3-3) 7mmol/L (-3-3) FiO2 50% 50% 50% White Blood Count 8.4x10^3/uL (4.0-11.0) Red Blood Count 2.93x10^6/uL (4.30-5.70) Hemoglobin 9.0g/dL (13.0-17.5) Hematocrit 27.6% (39.0-53.0) Mean Corpuscular Volume 94fL (79-100) Mean Corpuscular Hemoglobin 31pg (25-35) Mean Corpuscular Hemoglobin Concent 33g/dL (31-37) Red Cell Distribution Width 14.6% (11.5-14.5) Platelet Count 264x10^3/uL (140-400) Neutrophils (%) (Auto) 73% (31-73) Lymphocytes (%) (Auto) 13% (24-48) Monocytes (%) (Auto) 7% (0-9) Eosinophils (%) (Auto) 7% (0-3) Basophils (%) (Auto) 1% (0-3) Neutrophils # (Auto) 6.1x10^3uL (1.8-7.7) Lymphocytes # (Auto) 1.1x10^3/uL (1.0-4.8) Monocytes # (Auto) 0.6x10^3/uL (0.0-1.1) Eosinophils # (Auto) 0.6x10^3/uL (0.0-0.7) Basophils # (Auto) 0.0x10^3/uL (0.0-0.2) Sodium Level 143mmol/L (136-145) Potassium Level 3.7mmol/L (3.5-5.1) Chloride Level 106mmol/L (98-107) Carbon Dioxide Level 37mmol/L (21-32) Anion Gap 0 (6-14) Blood Urea Nitrogen 35mg/dL (8-26) Creatinine 1.1mg/dL (0.7-1.3) Estimated GFR (Cockcroft-Gault) 65.3 Glucose Level 135mg/dL (70-99) Calcium Level 8.4mg/dL (8.5-10.1) Test 10/15/16 21:50 10/16/16 02:00 Vancomycin Level Trough 27.7mcg/mL (10.0-20.0) Vancomycin Last Dose Date 10/15/16 Vancomycin Last Dose Time 0900 White Blood Count 10.9x10^3/uL (4.0-11.0) Red Blood Count 2.75x10^6/uL (4.30-5.70) Hemoglobin 8.2g/dL (13.0-17.5) Hematocrit 25.7% (39.0-53.0) Mean Corpuscular Volume 94fL (79-100) Mean Corpuscular Hemoglobin 30pg (25-35) Mean Corpuscular Hemoglobin Concent 32g/dL (31-37) Red Cell Distribution Width 14.5% (11.5-14.5) Platelet Count 320x10^3/uL (140-400) Neutrophils (%) (Auto) 67% (31-73) Lymphocytes (%) (Auto) 17% (24-48) Monocytes (%) (Auto) 7% (0-9) Eosinophils (%) (Auto) 8% (0-3) Basophils (%) (Auto) 1% (0-3) Neutrophils # (Auto) 7.3x10^3uL (1.8-7.7) Lymphocytes # (Auto) 1.9x10^3/uL (1.0-4.8) Monocytes # (Auto) 0.8x10^3/uL (0.0-1.1) Eosinophils # (Auto) 0.8x10^3/uL (0.0-0.7) Basophils # (Auto) 0.1x10^3/uL (0.0-0.2) Prothrombin Time 15.8SEC (11.7-14.0) Prothromb Time International Ratio 1.3 (0.8-1.1) Sodium Level 146mmol/L (136-145) Potassium Level 4.4mmol/L (3.5-5.1) Chloride Level 108mmol/L (98-107) Carbon Dioxide Level 33mmol/L (21-32) Anion Gap 5 (6-14) Blood Urea Nitrogen 45mg/dL (8-26) Creatinine 1.2mg/dL (0.7-1.3) Estimated GFR (Cockcroft-Gault) 59.0 Glucose Level 116mg/dL (70-99) Calcium Level 8.2mg/dL (8.5-10.1) Magnesium Level 2.5mg/dL (1.8-2.4) Laboratory Tests Test 10/15/16 21:50 10/16/16 02:00 Vancomycin Level Trough 27.7mcg/mL (10.0-20.0) Vancomycin Last Dose Date 10/15/16 Vancomycin Last Dose Time 0900 White Blood Count 10.9x10^3/uL (4.0-11.0) Red Blood Count 2.75x10^6/uL (4.30-5.70) Hemoglobin 8.2g/dL (13.0-17.5) Hematocrit 25.7% (39.0-53.0) Mean Corpuscular Volume 94fL (79-100) Mean Corpuscular Hemoglobin 30pg (25-35) Mean Corpuscular Hemoglobin Concent 32g/dL (31-37) Red Cell Distribution Width 14.5% (11.5-14.5) Platelet Count 320x10^3/uL (140-400) Neutrophils (%) (Auto) 67% (31-73) Lymphocytes (%) (Auto) 17% (24-48) Monocytes (%) (Auto) 7% (0-9) Eosinophils (%) (Auto) 8% (0-3) Basophils (%) (Auto) 1% (0-3) Neutrophils # (Auto) 7.3x10^3uL (1.8-7.7) Lymphocytes # (Auto) 1.9x10^3/uL (1.0-4.8) Monocytes # (Auto) 0.8x10^3/uL (0.0-1.1) Eosinophils # (Auto) 0.8x10^3/uL (0.0-0.7) Basophils # (Auto) 0.1x10^3/uL (0.0-0.2) Prothrombin Time 15.8SEC (11.7-14.0) Prothromb Time International Ratio 1.3 (0.8-1.1) Sodium Level 146mmol/L (136-145) Potassium Level 4.4mmol/L (3.5-5.1) Chloride Level 108mmol/L (98-107) Carbon Dioxide Level 33mmol/L (21-32) Anion Gap 5 (6-14) Blood Urea Nitrogen 45mg/dL (8-26) Creatinine 1.2mg/dL (0.7-1.3) Estimated GFR (Cockcroft-Gault) 59.0 Glucose Level 116mg/dL (70-99) Calcium Level 8.2mg/dL (8.5-10.1) Magnesium Level 2.5mg/dL (1.8-2.4) Microbiology 10/10/16 Blood Culture - Final, Complete NO GROWTH AFTER 5 DAYS 10/05/16 Urine Culture - Final, Complete 10/05/16 Urine Culture Result 1 (JABARI) - Final, Complete 10/13/16 Gram Stain - Final, Complete Medications Current Medications Albuterol/ Ipratropium (Duoneb) 3 ml 1X ONCE NEB Last administered on 22:21; Start 10/05/16 at 22:15; Stop 10/05/16 at 22:50; Status DC Ondansetron HCl 4 mg 4 mg PRN Q8HRS PRN IV NAUSEA/VOMITING; Start 10/05/16 at 23 :00; Stop 10/06/16 at 22:59; Status DC Sodium Chloride (Iv Sodium Chloride 0.9% 1000ml Bag) 1,000 ml @ 100 mls/hr Q10H IV Last administered on 10/06/16 18:59; Start 10/05/16 at 22:59; Stop at 22:58; Status DC Albuterol/ Ipratropium 3 ml 3 ml RTQID NEB Last administered on 10/07/16 07:47 ; Start 10/06/16 at 08:00; Stop 10/07/16 at 07:59; Status DC Ceftriaxone Sodium 1 gm/ Sodium Chloride 50 ml @ 100 mls/hr Q24H IV ; Start 10/06/16 at 22:00; Stop 10/06/16 at 22:00; Status DC Levofloxacin/ Dextrose (LEVAQUIN 750mg PREMIX) 150 ml @ 100 mls/hr 1X ONCE IV Last administered on 10/06/16 01:05; Start 10/05/16 at 23:30; Stop 10/06/16 at 00:59; Status DC Vancomycin HCl 1 each 1 each PRN DAILY PRN MC SEE COMMENTS Last administered on 10/07/16 14:14; Start 10/05/16 at 23:00; Stop 10/08/16 at 18:52; Status DC Ceftriaxone Sodium 50 ml @ 100 mls/hr 1X ONCE IV Last administered on 01:05; Start 10/05/16 at 23:30; Stop 10/05/16 at 23:59; Status DC Vancomycin HCl 2 gm/Sodium Chloride 500 ml @ 250 mls/hr 1X ONCE IV Last administered on 10/05/16 23:26; Start 10/06/16 at 00:00; Stop 10/06/16 at 01:59; Status DC Vancomycin HCl/ Sodium Chloride (Iv Sodium Chloride 0.9% 250ml) 250 ml @ 167 mls/hr Q12H IV Last administered on 10/08/16 13:20; Start 10/06/16 at 12:00; Stop 10/08/16 at 18:52; Status DC Vancomycin HCl 1 each 1 each 1X ONCE MC ; Start 10/07/16 at 11:30; Stop 10/07/16 at 11:31; Status DC Piperacillin Sod/ Tazobactam Sod/ Sodium Chloride (Zosyn/Iv Sodium Chloride 0.9 % 50ml) 50 ml @ 100 mls/hr Q6HRS IV Last administered on 10/06/16 11:56; Start 10/06/16 at 11:00; Stop 10/06/16 at 15:24; Status DC Piperacillin Sod/ Tazobactam Sod (Zosyn Per Pharmacy) 1 each PRN DAILY PRN MC SEE COMMENTS; Start 10/06/16 at 10:15; Stop 10/15/16 at 13:06; Status DC Aspirin (Ecotrin) 81 mg DAILY PO ; Start 10/06/16 at 11:30; Stop 10/06/16 at 11:30 ; Status DC Bisacodyl (Dulcolax Supp) 10 mg PRN DAILY PRN RC CONSTIPATION; Start 10/06/16 at 10:15 Furosemide (Lasix) 40 mg DAILY PO Last administered on 10/16/16 08:47; Start 10/06/16 at 11:30 Guaifenesin (Mucinex) 600 mg BID PO ; Start 10/06/16 at 11:30; Stop 10/06/16 at 11 :30; Status DC Potassium Chloride (KCl Oral Soln) 10 meq DAILY PEG Last administered on 08:46; Start 10/06/16 at 11:30 Simvastatin (Zocor) 20 mg QHS PO Last administered on 10/15/16 20:12; Start at 21:00 Tamsulosin HCl (Flomax) 0.4 mg DAILY PO Last administered on 10/07/16 08:58; Start 10/06/16 at 11:30; Stop 10/08/16 at 10:18; Status DC Multivitamins/ Minerals (Ocuvite Lutein) 1 cap DAILY PO Last administered on 08:48; Start 10/06/16 at 11:00 Artificial Tears (Artificial Tears) 1 drop PRN BID PRN OU DRY EYE Last administered on 10/11/16 08:39; Start 10/06/16 at 10:30 Aspirin (Children'S Aspirin) 81 mg DAILYWBKFT PO Last administered on 10/08/16 09:00; Start 10/06/16 at 11:30; Stop 10/08/16 at 11:31; Status DC Guaifenesin (Robitussin) 200 mg QID PO Last administered on 10/16/16 08:48; Start 10/06/16 at 11:30 Furosemide (Lasix) 40 mg 1X ONCE IVP Last administered on 10/06/16 12:01; Start 10/06/16 at 12:00; Stop 10/06/16 at 12:01; Status DC Acetaminophen (Tylenol) 650 mg PRN Q6HRS PRN PEG MILD PAIN / TEMP Last administered on 10/10/16 09:42; Start 10/06/16 at 12:15 Ondansetron HCl (Zofran) 4 mg PRN Q6HRS PRN IV NAUSEA/VOMITING; Start 10/06/16 at 12:15 Enoxaparin Sodium (Lovenox 40mg Syringe) 40 mg Q24H SQ Last administered on 14:43; Start 10/06/16 at 13:00 Nystatin 1 alejandro 1 alejandro BID TP Last administered on 10/16/16 09:03; Start at 14:30 Piperacillin Sod/ Tazobactam Sod/ Sodium Chloride (Zosyn/Iv Sodium Chloride 0.9 % 100ml) 100 ml @ 200 mls/hr Q6HRS IV Last administered on 10/16/16 06:30; Start 10/06/16 at 18:00; Stop 10/16/16 at 07:59; Status DC Meloxicam (Mobic) 7.5 mg DAILY PO Last administered on 10/16/16 08:48; Start 10/07/16 at 10:00 Acetaminophen/ Hydrocodone Bitart (Lortab 5/325) 1 tab PRN Q4HRS PRN PO MODERATE - SEVERE PAIN Last administered on 10/14/16 14:36; Start 10/07/16 at 10 :45 Furosemide (Lasix) 20 mg 1X ONCE IVP Last administered on 10/07/16 18:24; Start 10/07/16 at 12:00; Stop 10/07/16 at 12:01; Status DC Digoxin 500 mcg 500 mcg 1X ONCE IV Last administered on 10/07/16 22:38; Start 10/07/16 at 22:15; Stop 10/07/16 at 22:17; Status DC Micafungin Sodium/ Dextrose (Mycamine) 100 ml @ 100 mls/hr Q24H IV Last administered on 10/15/16 10:16; Start 10/08/16 at 09:00 Iohexol (Omnipaque 240 Mg/ml) 30 ml 1X ONCE PO Last administered on 10/08/16 11:47; Start 10/08/16 at 09:15; Stop 10/08/16 at 09:18; Status DC Iohexol (Omnipaque 300 Mg/ml) 75 ml 1X ONCE IV Last administered on 10/08/16 11:46; Start 10/08/16 at 09:15; Stop 10/08/16 at 09:18; Status DC Finasteride (Proscar) 5 mg DAILY PO Last administered on 10/16/16 08:48; Start 10/09/16 at 09:00 Methylprednisolone Acetate (Depo-Medrol 40mg Vial) 40 mg 1X ONCE IM ; Start 10/08/16 at 10:45; Stop 10/08/16 at 10:53; Status DC Methylprednisolone Acetate (Depo-Medrol 40mg Vial) 40 mg 1X ONCE IM ; Start 10/08/16 at 10:45; Stop 10/08/16 at 10:53; Status DC Bupivacaine HCl (Sensorcaine-Mpf 0.25%) 10 ml 1X ONCE IJ ; Start 10/08/16 at 10: 45; Stop 10/08/16 at 10:53; Status DC Digoxin (Lanoxin) 125 mcg DAILY PO Last administered on 10/16/16 08:47; Start 10/08/16 at 11:30 Aspirin (Children'S Aspirin) 325 mg DAILYWBKFT PO Last administered on 12:38; Start 10/08/16 at 11:30; Stop 10/08/16 at 13:30; Status DC Lactobacillus Acidophilus (Bacid, Danielle-Bid) 1 tab DAILY PO Last administered on 10/16/16 08:46; Start 10/08/16 at 13:00 Aspirin (Children'S Aspirin) 324 mg DAILYWBKFT PO Last administered on 08:46; Start 10/08/16 at 13:30 Oxycodone/ Acetaminophen (Percocet 10/325) 1 tab PRN Q6HRS PRN PO PAIN Last administered on 10/15/16 20:11; Start 10/09/16 at 10:30 Furosemide (Lasix) 20 mg 1X ONCE IVP Last administered on 10/09/16 16:54; Start 10/09/16 at 15:00; Stop 10/09/16 at 15:01; Status DC Urea ([place] Lo 40, X-Viate) 1 alejandro DAILY TP Last administered on 10/16/16 09:03; Start 10/09/16 at 18:00 Nystatin 5 ml 5 ml [id number] Last administered on 10/16/16 08:46; Start 06/18 at 13:00 Potassium Chloride (KCl Premix 10meq) 100 ml @ 100 mls/hr Q1H IV Last administered on 10/10/16 17:00; Start 10/10/16 at 14:00; Stop 10/10/16 at 17:59 ; Status DC Vancomycin HCl 1 each 1 each PRN DAILY PRN MC SEE COMMENTS Last administered on 10/16/16 01:36; Start 10/10/16 at 14:45 Vancomycin HCl 2 gm/Sodium Chloride 500 ml @ 250 mls/hr 1X ONCE IV Last administered on 10/10/16 15:30; Start 10/10/16 at 15:30; Stop 10/10/16 at 17:29 ; Status DC Vancomycin HCl/ Sodium Chloride (Iv Sodium Chloride 0.9% 250ml) 250 ml @ 167 mls/hr Q12H IV Last administered on 10/13/16 17:43; Start 10/11/16 at 05:00; Stop 10/14/16 at 05:57; Status DC Ondansetron HCl (Zofran) 4 mg PRN Q6HRS PRN IV Nausea; Start 10/13/16 at 12:30 ; Stop 10/14/16 at 12:29; Status DC Fentanyl Citrate (Fentanyl 2ml Vial) 25 mcg PRN Q5MIN PRN IV MILD PAIN; Start 10/13/16 at 12:30; Stop 10/14/16 at 12:29; Status DC Fentanyl Citrate (Fentanyl 2ml Vial) 50 mcg PRN Q5MIN PRN IV MODERATE PAIN; Start 10/13/16 at 12:30; Stop 10/14/16 at 12:29; Status DC Morphine Sulfate 1 mg 1 mg PRN Q10MIN PRN IV SEVERE PAIN; Start 10/13/16 at 12: 30; Stop 10/14/16 at 12:29; Status DC Lactated Ringer's (Iv Lactated Ringers) 1,000 ml @ 0 mls/hr Q0M IV ; Start at 12:23; Stop 10/14/16 at 00:22; Status DC Lidocaine HCl 2 ml 1X PRN PRN ID IV START; Start 10/13/16 at 12:30; Stop at 12:29; Status DC Hydromorphone HCl (Dilaudid) 0.5 mg PRN Q10MIN PRN IV SEV PAIN,Second choice; Start 10/13/16 at 12:30; Stop 10/14/16 at 12:29; Status DC Prochlorperazine Edisylate (Compazine) 5 mg PACU PRN PRN IV NAUSEA; Start 10/13 at 12:30; Stop 10/14/16 at 12:29; Status DC Vancomycin HCl 1 each 1 each 1X ONCE MC Last administered on 10/14/16 05:09; Start 10/14/16 at 04:30; Stop 10/14/16 at 04:31; Status DC Propofol (Diprivan) 20 ml @ As Directed STK-MED ONCE IV ; Start 10/13/16 at 15: 07; Stop 10/13/16 at 15:08; Status DC Lidocaine HCl 5 ml 5 ml STK-MED ONCE .ROUTE ; Start 10/13/16 at 15:07; Stop at 15:08; Status DC Propofol (Diprivan) 20 ml @ As Directed STK-MED ONCE IV ; Start 10/13/16 at 18: 42; Stop 10/13/16 at 18:43; Status DC Lidocaine HCl 100 mg STK-MED ONCE .ROUTE ; Start 10/13/16 at 18:42; Stop at 18:43; Status DC Ondansetron HCl (Zofran) 4 mg STK-MED ONCE .ROUTE ; Start 10/13/16 at 19:16; Stop 10/13/16 at 19:17; Status DC Phenylephrine HCl 1 mg STK-MED ONCE IV ; Start 10/13/16 at 19:16; Stop 10/13/16 at 19:17; Status DC Sevoflurane (Ultane) 30 ml STK-MED ONCE IH ; Start 10/13/16 at 19:28; Stop 10/13 at 19:29; Status DC Dexamethasone Sodium Phosphate (Decadron) 20 mg STK-MED ONCE .ROUTE ; Start at 19:29; Stop 10/13/16 at 19:30; Status DC Albuterol/ Ipratropium (Duoneb) 3 ml 1X ONCE NEB Last administered on 03:45; Start 10/14/16 at 03:45; Stop 10/14/16 at 03:46; Status DC Furosemide 20 mg 20 mg 1X ONCE IVP Last administered on 10/14/16 05:26; Start 10/14/16 at 05:15; Stop 10/14/16 at 05:16; Status DC Vancomycin HCl/ Sodium Chloride (Iv Sodium Chloride 0.9% 250ml) 250 ml @ 250 mls/hr Q12H IV Last administered on 10/15/16 09:05; Start 10/14/16 at 06:00; Stop 10/15/16 at 22:33; Status DC Vancomycin HCl 1 each 1X ONCE MC Last administered on 10/15/16 21:30; Start 10/15/16 at 20:30; Stop 10/15/16 at 20:31; Status DC Furosemide (Lasix) 40 mg 1X ONCE IVP Last administered on 10/14/16 10:35; Start 10/14/16 at 10:30; Stop 10/14/16 at 10:31; Status DC Alteplase, Recombinant (Cathflo) 2 mg 1X ONCE INT CAT Last administered on 05:17; Start 10/15/16 at 05:30; Stop 10/15/16 at 05:31; Status DC Loperamide HCl (Imodium) 2 mg PRN Q4HRS PRN PEG DIARRHEA Last administered on 00:01; Start 10/15/16 at 14:30 Cyanocobalamin (Vitamin B-12) 1,000 mcg QTH IM Last administered on 10/15/16 18:17; Start 10/15/16 at 16:00 Pantoprazole Sodium (Protonix Vial) 40 mg DAILYAC IVP Last administered on 10/16 09:05; Start 10/15/16 at 19:15 Sucralfate 1 gm 1 gm Q6HRS PEG ; Start 10/16/16 at 19:00 Vancomycin HCl/ Sodium Chloride (Iv Sodium Chloride 0.9% 250ml) 250 ml @ 250 mls/hr Q24H IV Last administered on 10/16/16 08:59; Start 10/16/16 at 09:00 Vancomycin HCl 1 each 1 each 1X ONCE MC ; Start 10/18/16 at 08:30; Stop at 08:31 Piperacillin Sod/ Tazobactam Sod/ Sodium Chloride (Zosyn/Iv Sodium Chloride 0.9 % 50ml) 50 ml @ 100 mls/hr Q6HRS IV ; Start 10/16/16 at 12:00 Albuterol/ Ipratropium (Duoneb) 3 ml RTQID NEB ; Start 10/16/16 at 08:30 Active Scripts Active Reported Isopto Tears (Hypromellose) 15 Ml Drops 15 Ml OP Oxycodone Hcl 10 Mg Tablet 1 Tab PO QID Ocuvite Tablet (Vit A,C & E/Lutein/Minerals) 1 Each Tablet 1 Each PO Dulcolax (Bisacodyl) 10 Mg Supp.rect 10 Mg RC PRN DAILY PRN Milk Of Magnesia (Magnesium Hydroxide) 400 Mg/5 Ml Oral.susp 400 Mg PO Simvastatin 20 Mg Tablet 1 Tab PO QHS Refresh Optive Eye Drops (Carboxymethylcellulos/Glycerin) 15 Ml Drops 1 Drop EACHEYE BID Tamsulosin Hcl 0.4 Mg Cap.er.24h 1 Cap PO DAILY Potassium Chloride Oral Liquid (Potassium Chloride) 20 Meq/15 Ml Liquid 10 Meq PEG DAILY Aspir 81 (Aspirin) 81 Mg Tablet.dr 1 Tab PO DAILY Furosemide 40 Mg Tablet 1 Tab PO DAILY Meloxicam 7.5 Mg Tablet 1 Tab PO DAILY Trazodone Hcl 50 Mg Tablet 1 Tab PO QHS Mucinex (Guaifenesin) 600 Mg Tablet.er 600 Mg PO Vitals/I & O Vital Sign - Last 24 Hours 10/15/16 10/15/16 10/15/16 10/15/16 10:23 10:24 12:16 15:00 Temp 98.2 98.6 98.2 98.6 Pulse 87 80 74 Resp 18 20 18 B/P 144/68 144/68 158/59 Pulse Ox 95 94 O2 Delivery Nasal Cannula Nasal Cannula Nasal Cannula O2 Flow Rate 3.0 10/15/16 10/15/16 10/15/16 10/15/16 19:00 20:00 20:11 21:15 Temp 98.5 98.5 Pulse 85 Resp 16 20 22 B/P 145/61 Pulse Ox 96 94 94 O2 Delivery Nasal Cannula Nasal Cannula Nasal Cannula Nasal Cannula O2 Flow Rate 3.0 4.0 4.0 10/15/16 10/16/16 10/16/16 10/16/16 22:08 00:49 03:00 07:55 Temp 99.3 98.2 98.2 99.3 98.2 98.2 Pulse 89 70 74 Resp 24 18 24 B/P 164/70 184/72 175/64 190/80 Pulse Ox 98 97 97 O2 Delivery Nasal Cannula Nasal Cannula O2 Flow Rate 3.0 3.0 10/16/16 08:47 Pulse 79 B/P 190/80 Intake and Output 10/15/16 10/15/16 10/16/16 15:00 23:00 07:00 Intake Total 310 ml 1080 ml Output Total 400 ml 880 ml Balance 310 ml 680 ml -880 ml THELMA GUTIERREZ MD Oct 16, 2016 09:50
[2016-10-16] MEDS ORDERED: hydrALAZINE 20 MG/ML VIAL. IVP PRN (10:00)
--- NOTE | 2016-10-16 10:09 | PDOC ---
PROGRESS NOTES Subjective Subjective He is lethargic today and he is having rectal bleeding. Objective Objective Vital Signs Date Time Temp Pulse Resp B/P Pulse Ox O2 Delivery O2 Flow Rate FiO2 10/16/16 08:47 79 190/80 10/16/16 07:55 98.2 24 97 Nasal Cannula 3.0 98.2 Intake and Output 10/16/16 07:00 Intake Total 1390 ml Output Total 1280 ml Balance 110 ml Tube Feeding 1190 ml Other 200 ml Output Urine Total 1280 ml # Bowel Movements 4 Physical Exam Physical Exam He is supine in bed and does not wake up to oral stimuli and taking deep breath. Assessment Assessment Problems Medical Problems: (1) Altered mental status Status: Acute (2) Gouty arthropathy, chronic, with tophi Status: Acute (3) Hospital acquired PNA Status: Acute Plan Plan of Care To continue present care efforts as tolerated. Comment Review of Relevant I have reviewed the following items cassidy (where applicable) has been applied. Labs Laboratory Tests Test 10/14/16 16:37 10/14/16 17:32 10/15/16 07:38 10/15/16 21:50 O2 Saturation 80% (92-99) 92% (92-99) Arterial Blood pH 7.36 (7.35-7.45) 7.34 (7.35-7.45) Arterial Blood pCO2 at Patient Temp 66mmHg (35-46) 66mmHg (35-46) Arterial Blood pO2 at Patient Temp 43mmHg (65-108) 66mmHg (65-108) Arterial Blood HCO3 36mmol/L (21-28) 35mmol/L (21-28) Arterial Blood Base Excess 8mmol/L (-3-3) 7mmol/L (-3-3) FiO2 50% 50% White Blood Count 8.4x10^3/uL (4.0-11.0) Red Blood Count 2.93x10^6/uL (4.30-5.70) Hemoglobin 9.0g/dL (13.0-17.5) Hematocrit 27.6% (39.0-53.0) Mean Corpuscular Volume 94fL (79-100) Mean Corpuscular Hemoglobin 31pg (25-35) Mean Corpuscular Hemoglobin Concent 33g/dL (31-37) Red Cell Distribution Width 14.6% (11.5-14.5) Platelet Count 264x10^3/uL (140-400) Neutrophils (%) (Auto) 73% (31-73) Lymphocytes (%) (Auto) 13% (24-48) Monocytes (%) (Auto) 7% (0-9) Eosinophils (%) (Auto) 7% (0-3) Basophils (%) (Auto) 1% (0-3) Neutrophils # (Auto) 6.1x10^3uL (1.8-7.7) Lymphocytes # (Auto) 1.1x10^3/uL (1.0-4.8) Monocytes # (Auto) 0.6x10^3/uL (0.0-1.1) Eosinophils # (Auto) 0.6x10^3/uL (0.0-0.7) Basophils # (Auto) 0.0x10^3/uL (0.0-0.2) Sodium Level 143mmol/L (136-145) Potassium Level 3.7mmol/L (3.5-5.1) Chloride Level 106mmol/L (98-107) Carbon Dioxide Level 37mmol/L (21-32) Anion Gap 0 (6-14) Blood Urea Nitrogen 35mg/dL (8-26) Creatinine 1.1mg/dL (0.7-1.3) Estimated GFR (Cockcroft-Gault) 65.3 Glucose Level 135mg/dL (70-99) Calcium Level 8.4mg/dL (8.5-10.1) Vancomycin Level Trough 27.7mcg/mL (10.0-20.0) Vancomycin Last Dose Date 10/15/16 Vancomycin Last Dose Time 0900 Test 10/16/16 02:00 White Blood Count 10.9x10^3/uL (4.0-11.0) Red Blood Count 2.75x10^6/uL (4.30-5.70) Hemoglobin 8.2g/dL (13.0-17.5) Hematocrit 25.7% (39.0-53.0) Mean Corpuscular Volume 94fL (79-100) Mean Corpuscular Hemoglobin 30pg (25-35) Mean Corpuscular Hemoglobin Concent 32g/dL (31-37) Red Cell Distribution Width 14.5% (11.5-14.5) Platelet Count 320x10^3/uL (140-400) Neutrophils (%) (Auto) 67% (31-73) Lymphocytes (%) (Auto) 17% (24-48) Monocytes (%) (Auto) 7% (0-9) Eosinophils (%) (Auto) 8% (0-3) Basophils (%) (Auto) 1% (0-3) Neutrophils # (Auto) 7.3x10^3uL (1.8-7.7) Lymphocytes # (Auto) 1.9x10^3/uL (1.0-4.8) Monocytes # (Auto) 0.8x10^3/uL (0.0-1.1) Eosinophils # (Auto) 0.8x10^3/uL (0.0-0.7) Basophils # (Auto) 0.1x10^3/uL (0.0-0.2) Prothrombin Time 15.8SEC (11.7-14.0) Prothromb Time International Ratio 1.3 (0.8-1.1) Sodium Level 146mmol/L (136-145) Potassium Level 4.4mmol/L (3.5-5.1) Chloride Level 108mmol/L (98-107) Carbon Dioxide Level 33mmol/L (21-32) Anion Gap 5 (6-14) Blood Urea Nitrogen 45mg/dL (8-26) Creatinine 1.2mg/dL (0.7-1.3) Estimated GFR (Cockcroft-Gault) 59.0 Glucose Level 116mg/dL (70-99) Calcium Level 8.2mg/dL (8.5-10.1) Magnesium Level 2.5mg/dL (1.8-2.4) Laboratory Tests Test 10/15/16 21:50 10/16/16 02:00 Vancomycin Level Trough 27.7mcg/mL (10.0-20.0) Vancomycin Last Dose Date 10/15/16 Vancomycin Last Dose Time 0900 White Blood Count 10.9x10^3/uL (4.0-11.0) Red Blood Count 2.75x10^6/uL (4.30-5.70) Hemoglobin 8.2g/dL (13.0-17.5) Hematocrit 25.7% (39.0-53.0) Mean Corpuscular Volume 94fL (79-100) Mean Corpuscular Hemoglobin 30pg (25-35) Mean Corpuscular Hemoglobin Concent 32g/dL (31-37) Red Cell Distribution Width 14.5% (11.5-14.5) Platelet Count 320x10^3/uL (140-400) Neutrophils (%) (Auto) 67% (31-73) Lymphocytes (%) (Auto) 17% (24-48) Monocytes (%) (Auto) 7% (0-9) Eosinophils (%) (Auto) 8% (0-3) Basophils (%) (Auto) 1% (0-3) Neutrophils # (Auto) 7.3x10^3uL (1.8-7.7) Lymphocytes # (Auto) 1.9x10^3/uL (1.0-4.8) Monocytes # (Auto) 0.8x10^3/uL (0.0-1.1) Eosinophils # (Auto) 0.8x10^3/uL (0.0-0.7) Basophils # (Auto) 0.1x10^3/uL (0.0-0.2) Prothrombin Time 15.8SEC (11.7-14.0) Prothromb Time International Ratio 1.3 (0.8-1.1) Sodium Level 146mmol/L (136-145) Potassium Level 4.4mmol/L (3.5-5.1) Chloride Level 108mmol/L (98-107) Carbon Dioxide Level 33mmol/L (21-32) Anion Gap 5 (6-14) Blood Urea Nitrogen 45mg/dL (8-26) Creatinine 1.2mg/dL (0.7-1.3) Estimated GFR (Cockcroft-Gault) 59.0 Glucose Level 116mg/dL (70-99) Calcium Level 8.2mg/dL (8.5-10.1) Magnesium Level 2.5mg/dL (1.8-2.4) Microbiology 10/10/16 Blood Culture - Final, Complete NO GROWTH AFTER 5 DAYS 10/05/16 Urine Culture - Final, Complete 10/05/16 Urine Culture Result 1 (JABARI) - Final, Complete 10/13/16 Gram Stain - Final, Complete Medications Current Medications Albuterol/ Ipratropium (Duoneb) 3 ml 1X ONCE NEB Last administered on 22:21; Start 10/05/16 at 22:15; Stop 10/05/16 at 22:50; Status DC Ondansetron HCl 4 mg 4 mg PRN Q8HRS PRN IV NAUSEA/VOMITING; Start 10/05/16 at 23 :00; Stop 10/06/16 at 22:59; Status DC Sodium Chloride (Iv Sodium Chloride 0.9% 1000ml Bag) 1,000 ml @ 100 mls/hr Q10H IV Last administered on 10/06/16 18:59; Start 10/05/16 at 22:59; Stop at 22:58; Status DC Albuterol/ Ipratropium 3 ml 3 ml RTQID NEB Last administered on 10/07/16 07:47 ; Start 10/06/16 at 08:00; Stop 10/07/16 at 07:59; Status DC Ceftriaxone Sodium 1 gm/ Sodium Chloride 50 ml @ 100 mls/hr Q24H IV ; Start 10/06/16 at 22:00; Stop 10/06/16 at 22:00; Status DC Levofloxacin/ Dextrose (LEVAQUIN 750mg PREMIX) 150 ml @ 100 mls/hr 1X ONCE IV Last administered on 10/06/16 01:05; Start 10/05/16 at 23:30; Stop 10/06/16 at 00:59; Status DC Vancomycin HCl 1 each 1 each PRN DAILY PRN MC SEE COMMENTS Last administered on 10/07/16 14:14; Start 10/05/16 at 23:00; Stop 10/08/16 at 18:52; Status DC Ceftriaxone Sodium 50 ml @ 100 mls/hr 1X ONCE IV Last administered on 01:05; Start 10/05/16 at 23:30; Stop 10/05/16 at 23:59; Status DC Vancomycin HCl 2 gm/Sodium Chloride 500 ml @ 250 mls/hr 1X ONCE IV Last administered on 10/05/16 23:26; Start 10/06/16 at 00:00; Stop 10/06/16 at 01:59; Status DC Vancomycin HCl/ Sodium Chloride (Iv Sodium Chloride 0.9% 250ml) 250 ml @ 167 mls/hr Q12H IV Last administered on 10/08/16 13:20; Start 10/06/16 at 12:00; Stop 10/08/16 at 18:52; Status DC Vancomycin HCl 1 each 1 each 1X ONCE MC ; Start 10/07/16 at 11:30; Stop 10/07/16 at 11:31; Status DC Piperacillin Sod/ Tazobactam Sod/ Sodium Chloride (Zosyn/Iv Sodium Chloride 0.9 % 50ml) 50 ml @ 100 mls/hr Q6HRS IV Last administered on 10/06/16 11:56; Start 10/06/16 at 11:00; Stop 10/06/16 at 15:24; Status DC Piperacillin Sod/ Tazobactam Sod (Zosyn Per Pharmacy) 1 each PRN DAILY PRN MC SEE COMMENTS; Start 10/06/16 at 10:15; Stop 10/15/16 at 13:06; Status DC Aspirin (Ecotrin) 81 mg DAILY PO ; Start 10/06/16 at 11:30; Stop 10/06/16 at 11:30 ; Status DC Bisacodyl (Dulcolax Supp) 10 mg PRN DAILY PRN RC CONSTIPATION; Start 10/06/16 at 10:15 Furosemide (Lasix) 40 mg DAILY PO Last administered on 10/16/16 08:47; Start 10/06/16 at 11:30 Guaifenesin (Mucinex) 600 mg BID PO ; Start 10/06/16 at 11:30; Stop 10/06/16 at 11 :30; Status DC Potassium Chloride (KCl Oral Soln) 10 meq DAILY PEG Last administered on 08:46; Start 10/06/16 at 11:30 Simvastatin (Zocor) 20 mg QHS PO Last administered on 10/15/16 20:12; Start at 21:00 Tamsulosin HCl (Flomax) 0.4 mg DAILY PO Last administered on 10/07/16 08:58; Start 10/06/16 at 11:30; Stop 10/08/16 at 10:18; Status DC Multivitamins/ Minerals (Ocuvite Lutein) 1 cap DAILY PO Last administered on 08:48; Start 10/06/16 at 11:00 Artificial Tears (Artificial Tears) 1 drop PRN BID PRN OU DRY EYE Last administered on 10/11/16 08:39; Start 10/06/16 at 10:30 Aspirin (Children'S Aspirin) 81 mg DAILYWBKFT PO Last administered on 10/08/16 09:00; Start 10/06/16 at 11:30; Stop 10/08/16 at 11:31; Status DC Guaifenesin (Robitussin) 200 mg QID PO Last administered on 10/16/16 08:48; Start 10/06/16 at 11:30 Furosemide (Lasix) 40 mg 1X ONCE IVP Last administered on 10/06/16 12:01; Start 10/06/16 at 12:00; Stop 10/06/16 at 12:01; Status DC Acetaminophen (Tylenol) 650 mg PRN Q6HRS PRN PEG MILD PAIN / TEMP Last administered on 10/10/16 09:42; Start 10/06/16 at 12:15 Ondansetron HCl (Zofran) 4 mg PRN Q6HRS PRN IV NAUSEA/VOMITING; Start 10/06/16 at 12:15 Enoxaparin Sodium (Lovenox 40mg Syringe) 40 mg Q24H SQ Last administered on 14:43; Start 10/06/16 at 13:00 Nystatin 1 alejandro 1 alejandro BID TP Last administered on 10/16/16 09:03; Start at 14:30 Piperacillin Sod/ Tazobactam Sod/ Sodium Chloride (Zosyn/Iv Sodium Chloride 0.9 % 100ml) 100 ml @ 200 mls/hr Q6HRS IV Last administered on 10/16/16 06:30; Start 10/06/16 at 18:00; Stop 10/16/16 at 07:59; Status DC Meloxicam (Mobic) 7.5 mg DAILY PO Last administered on 10/16/16 08:48; Start 10/07/16 at 10:00 Acetaminophen/ Hydrocodone Bitart (Lortab 5/325) 1 tab PRN Q4HRS PRN PO MODERATE - SEVERE PAIN Last administered on 10/14/16 14:36; Start 10/07/16 at 10 :45 Furosemide (Lasix) 20 mg 1X ONCE IVP Last administered on 10/07/16 18:24; Start 10/07/16 at 12:00; Stop 10/07/16 at 12:01; Status DC Digoxin 500 mcg 500 mcg 1X ONCE IV Last administered on 10/07/16 22:38; Start 10/07/16 at 22:15; Stop 10/07/16 at 22:17; Status DC Micafungin Sodium/ Dextrose (Mycamine) 100 ml @ 100 mls/hr Q24H IV Last administered on 10/15/16 10:16; Start 10/08/16 at 09:00 Iohexol (Omnipaque 240 Mg/ml) 30 ml 1X ONCE PO Last administered on 10/08/16 11:47; Start 10/08/16 at 09:15; Stop 10/08/16 at 09:18; Status DC Iohexol (Omnipaque 300 Mg/ml) 75 ml 1X ONCE IV Last administered on 10/08/16 11:46; Start 10/08/16 at 09:15; Stop 10/08/16 at 09:18; Status DC Finasteride (Proscar) 5 mg DAILY PO Last administered on 10/16/16 08:48; Start 10/09/16 at 09:00 Methylprednisolone Acetate (Depo-Medrol 40mg Vial) 40 mg 1X ONCE IM ; Start 10/08/16 at 10:45; Stop 10/08/16 at 10:53; Status DC Methylprednisolone Acetate (Depo-Medrol 40mg Vial) 40 mg 1X ONCE IM ; Start 10/08/16 at 10:45; Stop 10/08/16 at 10:53; Status DC Bupivacaine HCl (Sensorcaine-Mpf 0.25%) 10 ml 1X ONCE IJ ; Start 10/08/16 at 10: 45; Stop 10/08/16 at 10:53; Status DC Digoxin (Lanoxin) 125 mcg DAILY PO Last administered on 10/16/16 08:47; Start 10/08/16 at 11:30 Aspirin (Children'S Aspirin) 325 mg DAILYWBKFT PO Last administered on 12:38; Start 10/08/16 at 11:30; Stop 10/08/16 at 13:30; Status DC Lactobacillus Acidophilus (Bacid, Danielle-Bid) 1 tab DAILY PO Last administered on 10/16/16 08:46; Start 10/08/16 at 13:00 Aspirin (Children'S Aspirin) 324 mg DAILYWBKFT PO Last administered on 08:46; Start 10/08/16 at 13:30 Oxycodone/ Acetaminophen (Percocet 10/325) 1 tab PRN Q6HRS PRN PO PAIN Last administered on 10/15/16 20:11; Start 10/09/16 at 10:30 Furosemide (Lasix) 20 mg 1X ONCE IVP Last administered on 10/09/16 16:54; Start 10/09/16 at 15:00; Stop 10/09/16 at 15:01; Status DC Urea (Ritu Lo 40, X-Viate) 1 alejandro DAILY TP Last administered on 10/16/16 09:03; Start 10/09/16 at 18:00 Nystatin 5 ml 5 ml [id number] Last administered on 10/16/16 08:46; Start 06/18 at 13:00 Potassium Chloride (KCl Premix 10meq) 100 ml @ 100 mls/hr Q1H IV Last administered on 10/10/16 17:00; Start 10/10/16 at 14:00; Stop 10/10/16 at 17:59 ; Status DC Vancomycin HCl 1 each 1 each PRN DAILY PRN MC SEE COMMENTS Last administered on 10/16/16 01:36; Start 10/10/16 at 14:45 Vancomycin HCl 2 gm/Sodium Chloride 500 ml @ 250 mls/hr 1X ONCE IV Last administered on 10/10/16 15:30; Start 10/10/16 at 15:30; Stop 10/10/16 at 17:29 ; Status DC Vancomycin HCl/ Sodium Chloride (Iv Sodium Chloride 0.9% 250ml) 250 ml @ 167 mls/hr Q12H IV Last administered on 10/13/16 17:43; Start 10/11/16 at 05:00; Stop 10/14/16 at 05:57; Status DC Ondansetron HCl (Zofran) 4 mg PRN Q6HRS PRN IV Nausea; Start 10/13/16 at 12:30 ; Stop 10/14/16 at 12:29; Status DC Fentanyl Citrate (Fentanyl 2ml Vial) 25 mcg PRN Q5MIN PRN IV MILD PAIN; Start 10/13/16 at 12:30; Stop 10/14/16 at 12:29; Status DC Fentanyl Citrate (Fentanyl 2ml Vial) 50 mcg PRN Q5MIN PRN IV MODERATE PAIN; Start 10/13/16 at 12:30; Stop 10/14/16 at 12:29; Status DC Morphine Sulfate 1 mg 1 mg PRN Q10MIN PRN IV SEVERE PAIN; Start 10/13/16 at 12: 30; Stop 10/14/16 at 12:29; Status DC Lactated Ringer's (Iv Lactated Ringers) 1,000 ml @ 0 mls/hr Q0M IV ; Start at 12:23; Stop 10/14/16 at 00:22; Status DC Lidocaine HCl 2 ml 1X PRN PRN ID IV START; Start 10/13/16 at 12:30; Stop at 12:29; Status DC Hydromorphone HCl (Dilaudid) 0.5 mg PRN Q10MIN PRN IV SEV PAIN,Second choice; Start 10/13/16 at 12:30; Stop 10/14/16 at 12:29; Status DC Prochlorperazine Edisylate (Compazine) 5 mg PACU PRN PRN IV NAUSEA; Start 10/13 at 12:30; Stop 10/14/16 at 12:29; Status DC Vancomycin HCl 1 each 1 each 1X ONCE MC Last administered on 10/14/16t 05:09; Start 10/14/16 at 04:30; Stop 10/14/16 at 04:31; Status DC Propofol (Diprivan) 20 ml @ As Directed STK-MED ONCE IV ; Start 10/13/16 at 15: 07; Stop 10/13/16 at 15:08; Status DC Lidocaine HCl 5 ml 5 ml STK-MED ONCE .ROUTE ; Start 10/13/16 at 15:07; Stop at 15:08; Status DC Propofol (Diprivan) 20 ml @ As Directed STK-MED ONCE IV ; Start 10/13/16 at 18: 42; Stop 10/13/16 at 18:43; Status DC Lidocaine HCl 100 mg STK-MED ONCE .ROUTE ; Start 10/13/16 at 18:42; Stop at 18:43; Status DC Ondansetron HCl (Zofran) 4 mg STK-MED ONCE .ROUTE ; Start 10/13/16 at 19:16; Stop 10/13/16 at 19:17; Status DC Phenylephrine HCl 1 mg STK-MED ONCE IV ; Start 10/13/16 at 19:16; Stop 10/13/16 at 19:17; Status DC Sevoflurane (Ultane) 30 ml STK-MED ONCE IH ; Start 10/13/16 at 19:28; Stop 10/13 at 19:29; Status DC Dexamethasone Sodium Phosphate (Decadron) 20 mg STK-MED ONCE .ROUTE ; Start at 19:29; Stop 10/13/16 at 19:30; Status DC Albuterol/ Ipratropium (Duoneb) 3 ml 1X ONCE NEB Last administered on 03:45; Start 10/14/16 at 03:45; Stop 10/14/16 at 03:46; Status DC Furosemide 20 mg 20 mg 1X ONCE IVP Last administered on 10/14/16 05:26; Start 10/14/16 at 05:15; Stop 10/14/16 at 05:16; Status DC Vancomycin HCl/ Sodium Chloride (Iv Sodium Chloride 0.9% 250ml) 250 ml @ 250 mls/hr Q12H IV Last administered on 10/15/16 09:05; Start 10/14/16 at 06:00; Stop 10/15/16 at 22:33; Status DC Vancomycin HCl 1 each 1X ONCE MC Last administered on 10/15/16 21:30; Start 10/15/16 at 20:30; Stop 10/15/16 at 20:31; Status DC Furosemide (Lasix) 40 mg 1X ONCE IVP Last administered on 10/14/16 10:35; Start 10/14/16 at 10:30; Stop 10/14/16 at 10:31; Status DC Alteplase, Recombinant (Cathflo) 2 mg 1X ONCE INT CAT Last administered on 05:17; Start 10/15/16 at 05:30; Stop 10/15/16 at 05:31; Status DC Loperamide HCl (Imodium) 2 mg PRN Q4HRS PRN PEG DIARRHEA Last administered on 00:01; Start 10/15/16 at 14:30 Cyanocobalamin (Vitamin B-12) 1,000 mcg QTH IM Last administered on 10/15/16 18:17; Start 10/15/16 at 16:00 Pantoprazole Sodium (Protonix Vial) 40 mg DAILYAC IVP Last administered on 10/16 09:05; Start 10/15/16 at 19:15 Sucralfate 1 gm 1 gm Q6HRS PEG ; Start 10/16/16 at 19:00 Vancomycin HCl/ Sodium Chloride (Iv Sodium Chloride 0.9% 250ml) 250 ml @ 250 mls/hr Q24H IV Last administered on 10/16/16 08:59; Start 10/16/16 at 09:00 Vancomycin HCl 1 each 1 each 1X ONCE MC ; Start 10/18/16 at 08:30; Stop at 08:31 Piperacillin Sod/ Tazobactam Sod/ Sodium Chloride (Zosyn/Iv Sodium Chloride 0.9 % 50ml) 50 ml @ 100 mls/hr Q6HRS IV ; Start 10/16/16 at 12:00 Albuterol/ Ipratropium (Duoneb) 3 ml RTQID NEB ; Start 10/16/16 at 08:30 Metoprolol Tartrate (Lopressor) 25 mg BID PO ; Start 10/16/16 at 10:00 Hydralazine HCl (Apresoline) 10 mg PRN Q4HRS PRN IVP ELEVATED BP, SEE COMMENTS ; Start 10/16/16 at 10:00 Active Scripts Active Reported Isopto Tears (Hypromellose) 15 Ml Drops 15 Ml OP Oxycodone Hcl 10 Mg Tablet 1 Tab PO QID Ocuvite Tablet (Vit A,C & E/Lutein/Minerals) 1 Each Tablet 1 Each PO Dulcolax (Bisacodyl) 10 Mg Supp.rect 10 Mg RC PRN DAILY PRN Milk Of Magnesia (Magnesium Hydroxide) 400 Mg/5 Ml Oral.susp 400 Mg PO Simvastatin 20 Mg Tablet 1 Tab PO QHS Refresh Optive Eye Drops (Carboxymethylcellulos/Glycerin) 15 Ml Drops 1 Drop EACHEYE BID Tamsulosin Hcl 0.4 Mg Cap.er.24h 1 Cap PO DAILY Potassium Chloride Oral Liquid (Potassium Chloride) 20 Meq/15 Ml Liquid 10 Meq PEG DAILY Aspir 81 (Aspirin) 81 Mg Tablet.dr 1 Tab PO DAILY Furosemide 40 Mg Tablet 1 Tab PO DAILY Meloxicam 7.5 Mg Tablet 1 Tab PO DAILY Trazodone Hcl 50 Mg Tablet 1 Tab PO QHS Mucinex (Guaifenesin) 600 Mg Tablet.er 600 Mg PO Vitals/I & O Vital Sign - Last 24 Hours 10/15/16 10/15/16 10/15/16 10/15/16 10:23 10:24 12:16 15:00 Temp 98.2 98.6 98.2 98.6 Pulse 87 80 74 Resp 18 20 18 B/P 144/68 144/68 158/59 Pulse Ox 95 94 O2 Delivery Nasal Cannula Nasal Cannula Nasal Cannula O2 Flow Rate 3.0 10/15/16 10/15/16 10/15/16 10/15/16 19:00 20:00 20:11 21:15 Temp 98.5 98.5 Pulse 85 Resp B/P 145/61 Pulse Ox 96 94 94 O2 Delivery Nasal Cannula Nasal Cannula Nasal Cannula Nasal Cannula O2 Flow Rate 3.0 4.0 4.0 10/15/16 10/16/16 10/16/16 10/16/16 22:08 00:49 03:00 07:55 Temp 99.3 98.2 98.2 99.3 98.2 98.2 Pulse 89 70 74 Resp 24 18 24 B/P 164/70 184/72 175/64 190/80 Pulse Ox 98 97 97 O2 Delivery Nasal Cannula Nasal Cannula O2 Flow Rate 3.0 3.0 10/16/16 08:47 Pulse 79 B/P 190/80 Intake and Output 10/15/16 10/15/16 10/16/16 15:00 23:00 07:00 Intake Total 310 ml 1080 ml Output Total 400 ml 880 ml Balance 310 ml 680 ml -880 ml RODRIGUE MAYNARD MD Oct 16, 2016 10:09
[2016-10-16] MEDS: METOPROLOL TART IMMED RELEASE 25 MG TABLET PO SCH ×2 (10:14→21:24)
[2016-10-16] MEDS: MICAFUNGIN 100 MG in IV DEXTROSE 5% 100 ML IV SCH (10:16)
[2016-10-16 10:20] LABS: BASO # 0.1 x10^3/uL (0.0-0.2); BASO % 1 % (0-3); EOS % 1 % (0-3); HEMATOCRIT 21.2 % (39.0-53.0); LYMPH # 1.1 x10^3/uL (1.0-4.8); LYMPH % 10 % (24-48); MEAN CORPUSCULAR HEMOGLOBIN 30 pg (25-35); MEAN CORPUSCULAR HGB CONC 33 g/dL (31-37); MEAN CORPUSCULAR VOLUME 91 fL (79-100); MONO % 6 % (0-9); NEUT % 82 % (31-73); PLATELET COUNT 310 x10^3/uL (140-400); RED BLOOD COUNT 2.34 x10^6/uL (4.30-5.70); RED CELL DISTRIBUTION WIDTH 14.1 % (11.5-14.5); WHITE BLOOD COUNT 11.3 x10^3/uL (4.0-11.0)
[2016-10-16 10:43] LABS: CALCIUM 8.1 mg/dL (8.5-10.1); CREATININE 1.1 mg/dL (0.7-1.3); GFR 65.3; POTASSIUM 4.1 mmol/L (3.5-5.1)
[2016-10-16 10:47] LABS: ALBUMIN 1.3 g/dL (3.4-5.0); ALBUMIN/GLOBULIN RATIO 0.3 (1.0-1.7); TOTAL BILIRUBIN 0.5 mg/dL (0.2-1.0); TOTAL PROTEIN 5.2 g/dL (6.4-8.2)
[2016-10-16] MEDS: IPRATRPIUM/ALBUTEROL 0.5/2.5MG 3 ML NEBU. NEB SCH ×4 (11:08→20:32)
--- NOTE | 2016-10-16 12:06 | PDOC ---
G I PROGRESS NOTE Reason for Follow-up Oropharyngeal dysphagia/rectal bleeding Subjective Patient unresponsive Physical Exam Lungs decreased BS CV S1 S2 ABD PEG intact, +BS, soft Review of Relevant I have reviewed the following items cassidy (where applicable) has been applied. Labs Laboratory Tests Test 10/14/16 16:37 10/14/16 17:32 10/15/16 07:38 10/15/16 21:50 O2 Saturation 80% (92-99) 92% (92-99) Arterial Blood pH 7.36 (7.35-7.45) 7.34 (7.35-7.45) Arterial Blood pCO2 at Patient Temp 66mmHg (35-46) 66mmHg (35-46) Arterial Blood pO2 at Patient Temp 43mmHg (65-108) 66mmHg (65-108) Arterial Blood HCO3 36mmol/L (21-28) 35mmol/L (21-28) Arterial Blood Base Excess 8mmol/L (-3-3) 7mmol/L (-3-3) FiO2 50% 50% White Blood Count 8.4x10^3/uL (4.0-11.0) Red Blood Count 2.93x10^6/uL (4.30-5.70) Hemoglobin 9.0g/dL (13.0-17.5) Hematocrit 27.6% (39.0-53.0) Mean Corpuscular Volume 94fL (79-100) Mean Corpuscular Hemoglobin 31pg (25-35) Mean Corpuscular Hemoglobin Concent 33g/dL (31-37) Red Cell Distribution Width 14.6% (11.5-14.5) Platelet Count 264x10^3/uL (140-400) Neutrophils (%) (Auto) 73% (31-73) Lymphocytes (%) (Auto) 13% (24-48) Monocytes (%) (Auto) 7% (0-9) Eosinophils (%) (Auto) 7% (0-3) Basophils (%) (Auto) 1% (0-3) Neutrophils # (Auto) 6.1x10^3uL (1.8-7.7) Lymphocytes # (Auto) 1.1x10^3/uL (1.0-4.8) Monocytes # (Auto) 0.6x10^3/uL (0.0-1.1) Eosinophils # (Auto) 0.6x10^3/uL (0.0-0.7) Basophils # (Auto) 0.0x10^3/uL (0.0-0.2) Sodium Level 143mmol/L (136-145) Potassium Level 3.7mmol/L (3.5-5.1) Chloride Level 106mmol/L (98-107) Carbon Dioxide Level 37mmol/L (21-32) Anion Gap 0 (6-14) Blood Urea Nitrogen 35mg/dL (8-26) Creatinine 1.1mg/dL (0.7-1.3) Estimated GFR (Cockcroft-Gault) 65.3 Glucose Level 135mg/dL (70-99) Calcium Level 8.4mg/dL (8.5-10.1) Vancomycin Level Trough 27.7mcg/mL (10.0-20.0) Vancomycin Last Dose Date 10/15/16 Vancomycin Last Dose Time 0900 Test 10/16/16 02:00 10/16/16 10:10 White Blood Count 10.9x10^3/uL (4.0-11.0) 11.3x10^3/uL (4.0-11.0) Red Blood Count 2.75x10^6/uL (4.30-5.70) 2.34x10^6/uL (4.30-5.70) Hemoglobin 8.2g/dL (13.0-17.5) 7.0g/dL (13.0-17.5) Hematocrit 25.7% (39.0-53.0) 21.2% (39.0-53.0) Mean Corpuscular Volume 94fL (79-100) 91fL (79-100) Mean Corpuscular Hemoglobin 30pg (25-35) 30pg (25-35) Mean Corpuscular Hemoglobin Concent 32g/dL (31-37) 33g/dL (31-37) Red Cell Distribution Width 14.5% (11.5-14.5) 14.1% (11.5-14.5) Platelet Count 320x10^3/uL (140-400) 310x10^3/uL (140-400) Neutrophils (%) (Auto) 67% (31-73) 82% (31-73) Lymphocytes (%) (Auto) 17% (24-48) 10% (24-48) Monocytes (%) (Auto) 7% (0-9) 6% (0-9) Eosinophils (%) (Auto) 8% (0-3) 1% (0-3) Basophils (%) (Auto) 1% (0-3) 1% (0-3) Neutrophils # (Auto) 7.3x10^3uL (1.8-7.7) 9.3x10^3uL (1.8-7.7) Lymphocytes # (Auto) 1.9x10^3/uL (1.0-4.8) 1.1x10^3/uL (1.0-4.8) Monocytes # (Auto) 0.8x10^3/uL (0.0-1.1) 0.7x10^3/uL (0.0-1.1) Eosinophils # (Auto) 0.8x10^3/uL (0.0-0.7) 0.1x10^3/uL (0.0-0.7) Basophils # (Auto) 0.1x10^3/uL (0.0-0.2) 0.1x10^3/uL (0.0-0.2) Prothrombin Time 15.8SEC (11.7-14.0) Prothromb Time International Ratio 1.3 (0.8-1.1) Sodium Level 146mmol/L (136-145) 147mmol/L (136-145) Potassium Level 4.4mmol/L (3.5-5.1) 4.1mmol/L (3.5-5.1) Chloride Level 108mmol/L (98-107) 111mmol/L (98-107) Carbon Dioxide Level 33mmol/L (21-32) 33mmol/L (21-32) Anion Gap 5 (6-14) 3 (6-14) Blood Urea Nitrogen 45mg/dL (8-26) 47mg/dL (8-26) Creatinine 1.2mg/dL (0.7-1.3) 1.1mg/dL (0.7-1.3) Estimated GFR (Cockcroft-Gault) 59.0 65.3 Glucose Level 116mg/dL (70-99) 171mg/dL (70-99) Calcium Level 8.2mg/dL (8.5-10.1) 8.1mg/dL (8.5-10.1) Magnesium Level 2.5mg/dL (1.8-2.4) BUN/Creatinine Ratio 43 (6-20) Total Bilirubin 0.5mg/dL (0.2-1.0) Aspartate Amino Transf (AST/SGOT) 19U/L (15-37) Alanine Aminotransferase (ALT/SGPT) 20U/L (16-63) Alkaline Phosphatase 44U/L (46-116) Total Protein 5.2g/dL (6.4-8.2) Albumin 1.3g/dL (3.4-5.0) Albumin/Globulin Ratio 0.3 (1.0-1.7) Laboratory Tests Test 10/15/16 21:50 10/16/16 02:00 10/16/16 10:10 Vancomycin Level Trough 27.7mcg/mL (10.0-20.0) Vancomycin Last Dose Date 10/15/16 Vancomycin Last Dose Time 0900 White Blood Count 10.9x10^3/uL (4.0-11.0) 11.3x10^3/uL (4.0-11.0) Red Blood Count 2.75x10^6/uL (4.30-5.70) 2.34x10^6/uL (4.30-5.70) Hemoglobin 8.2g/dL (13.0-17.5) 7.0g/dL (13.0-17.5) Hematocrit 25.7% (39.0-53.0) 21.2% (39.0-53.0) Mean Corpuscular Volume 94fL (79-100) 91fL (79-100) Mean Corpuscular Hemoglobin 30pg (25-35) 30pg (25-35) Mean Corpuscular Hemoglobin Concent 32g/dL (31-37) 33g/dL (31-37) Red Cell Distribution Width 14.5% (11.5-14.5) 14.1% (11.5-14.5) Platelet Count 320x10^3/uL (140-400) 310x10^3/uL (140-400) Neutrophils (%) (Auto) 67% (31-73) 82% (31-73) Lymphocytes (%) (Auto) 17% (24-48) 10% (24-48) Monocytes (%) (Auto) 7% (0-9) 6% (0-9) Eosinophils (%) (Auto) 8% (0-3) 1% (0-3) Basophils (%) (Auto) 1% (0-3) 1% (0-3) Neutrophils # (Auto) 7.3x10^3uL (1.8-7.7) 9.3x10^3uL (1.8-7.7) Lymphocytes # (Auto) 1.9x10^3/uL (1.0-4.8) 1.1x10^3/uL (1.0-4.8) Monocytes # (Auto) 0.8x10^3/uL (0.0-1.1) 0.7x10^3/uL (0.0-1.1) Eosinophils # (Auto) 0.8x10^3/uL (0.0-0.7) 0.1x10^3/uL (0.0-0.7) Basophils # (Auto) 0.1x10^3/uL (0.0-0.2) 0.1x10^3/uL (0.0-0.2) Prothrombin Time 15.8SEC (11.7-14.0) Prothromb Time International Ratio 1.3 (0.8-1.1) Sodium Level 146mmol/L (136-145) 147mmol/L (136-145) Potassium Level 4.4mmol/L (3.5-5.1) 4.1mmol/L (3.5-5.1) Chloride Level 108mmol/L (98-107) 111mmol/L (98-107) Carbon Dioxide Level 33mmol/L (21-32) 33mmol/L (21-32) Anion Gap 5 (6-14) 3 (6-14) Blood Urea Nitrogen 45mg/dL (8-26) 47mg/dL (8-26) Creatinine 1.2mg/dL (0.7-1.3) 1.1mg/dL (0.7-1.3) Estimated GFR (Cockcroft-Gault) 59.0 65.3 Glucose Level 116mg/dL (70-99) 171mg/dL (70-99) Calcium Level 8.2mg/dL (8.5-10.1) 8.1mg/dL (8.5-10.1) Magnesium Level 2.5mg/dL (1.8-2.4) BUN/Creatinine Ratio 43 (6-20) Total Bilirubin 0.5mg/dL (0.2-1.0) Aspartate Amino Transf (AST/SGOT) 19U/L (15-37) Alanine Aminotransferase (ALT/SGPT) 20U/L (16-63) Alkaline Phosphatase 44U/L (46-116) Total Protein 5.2g/dL (6.4-8.2) Albumin 1.3g/dL (3.4-5.0) Albumin/Globulin Ratio 0.3 (1.0-1.7) Microbiology 10/10/16 Blood Culture - Final, Complete NO GROWTH AFTER 5 DAYS 10/05/16 Urine Culture - Final, Complete 10/05/16 Urine Culture Result 1 (JABARI) - Final, Complete 10/13/16 Gram Stain - Final, Complete Medications Current Medications Albuterol/ Ipratropium (Duoneb) 3 ml 1X ONCE NEB Last administered on 22:21; Start 10/05/16 at 22:15; Stop 10/05/16 at 22:50; Status DC Ondansetron HCl 4 mg 4 mg PRN Q8HRS PRN IV NAUSEA/VOMITING; Start 10/05/16 at 23 :00; Stop 10/06/16 at 22:59; Status DC Sodium Chloride (Iv Sodium Chloride 0.9% 1000ml Bag) 1,000 ml @ 100 mls/hr Q10H IV Last administered on 10/06/16 18:59; Start 10/05/16 at 22:59; Stop at 22:58; Status DC Albuterol/ Ipratropium 3 ml 3 ml RTQID NEB Last administered on 10/07/16 07:47 ; Start 10/06/16 at 08:00; Stop 10/07/16 at 07:59; Status DC Ceftriaxone Sodium 1 gm/ Sodium Chloride 50 ml @ 100 mls/hr Q24H IV ; Start 10/06/16 at 22:00; Stop 10/06/16 at 22:00; Status DC Levofloxacin/ Dextrose (LEVAQUIN 750mg PREMIX) 150 ml @ 100 mls/hr 1X ONCE IV Last administered on 10/06/16 01:05; Start 10/05/16 at 23:30; Stop 10/06/16 at 00:59; Status DC Vancomycin HCl 1 each 1 each PRN DAILY PRN MC SEE COMMENTS Last administered on 10/07/16 14:14; Start 10/05/16 at 23:00; Stop 10/08/16 at 18:52; Status DC Ceftriaxone Sodium 50 ml @ 100 mls/hr 1X ONCE IV Last administered on 01:05; Start 10/05/16 at 23:30; Stop 10/05/16 at 23:59; Status DC Vancomycin HCl 2 gm/Sodium Chloride 500 ml @ 250 mls/hr 1X ONCE IV Last administered on 10/05/16 23:26; Start 10/06/16 at 00:00; Stop 10/06/16 at 01:59; Status DC Vancomycin HCl/ Sodium Chloride (Iv Sodium Chloride 0.9% 250ml) 250 ml @ 167 mls/hr Q12H IV Last administered on 10/08/16 13:20; Start 10/06/16 at 12:00; Stop 10/08/16 at 18:52; Status DC Vancomycin HCl 1 each 1 each 1X ONCE MC ; Start 10/07/16 at 11:30; Stop 10/07/16 at 11:31; Status DC Piperacillin Sod/ Tazobactam Sod/ Sodium Chloride (Zosyn/Iv Sodium Chloride 0.9 % 50ml) 50 ml @ 100 mls/hr Q6HRS IV Last administered on 10/06/16 11:56; Start 10/06/16 at 11:00; Stop 10/06/16 at 15:24; Status DC Piperacillin Sod/ Tazobactam Sod (Zosyn Per Pharmacy) 1 each PRN DAILY PRN MC SEE COMMENTS; Start 10/06/16 at 10:15; Stop 10/15/16 at 13:06; Status DC Aspirin (Ecotrin) 81 mg DAILY PO ; Start 10/06/16 at 11:30; Stop 10/06/16 at 11:30 ; Status DC Bisacodyl (Dulcolax Supp) 10 mg PRN DAILY PRN RC CONSTIPATION; Start 10/06/16 at 10:15 Furosemide (Lasix) 40 mg DAILY PO Last administered on 10/16/16 08:47; Start 10/06/16 at 11:30 Guaifenesin (Mucinex) 600 mg BID PO ; Start 10/06/16 at 11:30; Stop 10/06/16 at 11 :30; Status DC Potassium Chloride (KCl Oral Soln) 10 meq DAILY PEG Last administered on 08:46; Start 10/06/16 at 11:30 Simvastatin (Zocor) 20 mg QHS PO Last administered on 10/15/16 20:12; Start at 21:00 Tamsulosin HCl (Flomax) 0.4 mg DAILY PO Last administered on 10/07/16 08:58; Start 10/06/16 at 11:30; Stop 10/08/16 at 10:18; Status DC Multivitamins/ Minerals (Ocuvite Lutein) 1 cap DAILY PO Last administered on 08:48; Start 10/06/16 at 11:00 Artificial Tears (Artificial Tears) 1 drop PRN BID PRN OU DRY EYE Last administered on 10/11/16 08:39; Start 10/06/16 at 10:30 Aspirin (Children'S Aspirin) 81 mg DAILYWBKFT PO Last administered on 10/08/16 09:00; Start 10/06/16 at 11:30; Stop 10/08/16 at 11:31; Status DC Guaifenesin (Robitussin) 200 mg QID PO Last administered on 10/16/16 08:48; Start 10/06/16 at 11:30 Furosemide (Lasix) 40 mg 1X ONCE IVP Last administered on 10/06/16 12:01; Start 10/06/16 at 12:00; Stop 10/06/16 at 12:01; Status DC Acetaminophen (Tylenol) 650 mg PRN Q6HRS PRN PEG MILD PAIN / TEMP Last administered on 10/10/16 09:42; Start 10/06/16 at 12:15 Ondansetron HCl (Zofran) 4 mg PRN Q6HRS PRN IV NAUSEA/VOMITING; Start 10/06/16 at 12:15 Enoxaparin Sodium (Lovenox 40mg Syringe) 40 mg Q24H SQ Last administered on 14:43; Start 10/06/16 at 13:00 Nystatin 1 alejandro 1 alejandro BID TP Last administered on 10/16/16 09:03; Start at 14:30 Piperacillin Sod/ Tazobactam Sod/ Sodium Chloride (Zosyn/Iv Sodium Chloride 0.9 % 100ml) 100 ml @ 200 mls/hr Q6HRS IV Last administered on 10/16/16 06:30; Start 10/06/16 at 18:00; Stop 10/16/16 at 07:59; Status DC Meloxicam (Mobic) 7.5 mg DAILY PO Last administered on 10/16/16 08:48; Start 10/07/16 at 10:00 Acetaminophen/ Hydrocodone Bitart (Lortab 5/325) 1 tab PRN Q4HRS PRN PO MODERATE - SEVERE PAIN Last administered on 10/14/16 14:36; Start 10/07/16 at 10 :45 Furosemide (Lasix) 20 mg 1X ONCE IVP Last administered on 10/07/16 18:24; Start 10/07/16 at 12:00; Stop 10/07/16 at 12:01; Status DC Digoxin 500 mcg 500 mcg 1X ONCE IV Last administered on 10/07/16 22:38; Start 10/07/16 at 22:15; Stop 10/07/16 at 22:17; Status DC Micafungin Sodium/ Dextrose (Mycamine) 100 ml @ 100 mls/hr Q24H IV Last administered on 10/16/16 10:16; Start 10/08/16 at 09:00 Iohexol (Omnipaque 240 Mg/ml) 30 ml 1X ONCE PO Last administered on 10/08/16 11:47; Start 10/08/16 at 09:15; Stop 10/08/16 at 09:18; Status DC Iohexol (Omnipaque 300 Mg/ml) 75 ml 1X ONCE IV Last administered on 10/08/16 11:46; Start 10/08/16 at 09:15; Stop 10/08/16 at 09:18; Status DC Finasteride (Proscar) 5 mg DAILY PO Last administered on 10/16/16 08:48; Start 10/09/16 at 09:00 Methylprednisolone Acetate (Depo-Medrol 40mg Vial) 40 mg 1X ONCE IM ; Start 10/08/16 at 10:45; Stop 10/08/16 at 10:53; Status DC Methylprednisolone Acetate (Depo-Medrol 40mg Vial) 40 mg 1X ONCE IM ; Start 10/08/16 at 10:45; Stop 10/08/16 at 10:53; Status DC Bupivacaine HCl (Sensorcaine-Mpf 0.25%) 10 ml 1X ONCE IJ ; Start 10/08/16 at 10: 45; Stop 10/08/16 at 10:53; Status DC Digoxin (Lanoxin) 125 mcg DAILY PO Last administered on 10/16/16 08:47; Start 10/08/16 at 11:30 Aspirin (Children'S Aspirin) 325 mg DAILYWBKFT PO Last administered on 12:38; Start 10/08/16 at 11:30; Stop 10/08/16 at 13:30; Status DC Lactobacillus Acidophilus (Bacid, Danielle-Bid) 1 tab DAILY PO Last administered on 10/16/16 08:46; Start 10/08/16 at 13:00 Aspirin (Children'S Aspirin) 324 mg DAILYWBKFT PO Last administered on 08:46; Start 10/08/16 at 13:30 Oxycodone/ Acetaminophen (Percocet 10/325) 1 tab PRN Q6HRS PRN PO PAIN Last administered on 10/15/16 20:11; Start 10/09/16 at 10:30 Furosemide (Lasix) 20 mg 1X ONCE IVP Last administered on 10/09/16 16:54; Start 10/09/16 at 15:00; Stop 10/09/16 at 15:01; Status DC Urea ([place] Lo 40, X-Viate) 1 alejandro DAILY TP Last administered on 10/16/16 09:03; Start 10/09/16 at 18:00 Nystatin 5 ml 5 ml [id number] Last administered on 10/16/16 08:46; Start 06/18 at 13:00 Potassium Chloride (KCl Premix 10meq) 100 ml @ 100 mls/hr Q1H IV Last administered on 10/10/16 17:00; Start 10/10/16 at 14:00; Stop 10/10/16 at 17:59 ; Status DC Vancomycin HCl 1 each 1 each PRN DAILY PRN MC SEE COMMENTS Last administered on 10/16/16 01:36; Start 10/10/16 at 14:45 Vancomycin HCl 2 gm/Sodium Chloride 500 ml @ 250 mls/hr 1X ONCE IV Last administered on 10/10/16 15:30; Start 10/10/16 at 15:30; Stop 10/10/16 at 17:29 ; Status DC Vancomycin HCl/ Sodium Chloride (Iv Sodium Chloride 0.9% 250ml) 250 ml @ 167 mls/hr Q12H IV Last administered on 10/13/16 17:43; Start 10/11/16 at 05:00; Stop 10/14/16 at 05:57; Status DC Ondansetron HCl (Zofran) 4 mg PRN Q6HRS PRN IV Nausea; Start 10/13/16 at 12:30 ; Stop 10/14/16 at 12:29; Status DC Fentanyl Citrate (Fentanyl 2ml Vial) 25 mcg PRN Q5MIN PRN IV MILD PAIN; Start 10/13/16 at 12:30; Stop 10/14/16 at 12:29; Status DC Fentanyl Citrate (Fentanyl 2ml Vial) 50 mcg PRN Q5MIN PRN IV MODERATE PAIN; Start 10/13/16 at 12:30; Stop 10/14/16 at 12:29; Status DC Morphine Sulfate 1 mg 1 mg PRN Q10MIN PRN IV SEVERE PAIN; Start 10/13/16 at 12: 30; Stop 10/14/16 at 12:29; Status DC Lactated Ringer's (Iv Lactated Ringers) 1,000 ml @ 0 mls/hr Q0M IV ; Start at 12:23; Stop 10/14/16 at 00:22; Status DC Lidocaine HCl 2 ml 1X PRN PRN ID IV START; Start 10/13/16 at 12:30; Stop at 12:29; Status DC Hydromorphone HCl (Dilaudid) 0.5 mg PRN Q10MIN PRN IV SEV PAIN,Second choice; Start 10/13/16 at 12:30; Stop 10/14/16 at 12:29; Status DC Prochlorperazine Edisylate (Compazine) 5 mg PACU PRN PRN IV NAUSEA; Start 10/13 at 12:30; Stop 10/14/16 at 12:29; Status DC Vancomycin HCl 1 each 1 each 1X ONCE MC Last administered on 10/14/16t 05:09; Start 10/14/16 at 04:30; Stop 10/14/16 at 04:31; Status DC Propofol (Diprivan) 20 ml @ As Directed STK-MED ONCE IV ; Start 10/13/16 at 15: 07; Stop 10/13/16 at 15:08; Status DC Lidocaine HCl 5 ml 5 ml STK-MED ONCE .ROUTE ; Start 10/13/16 at 15:07; Stop at 15:08; Status DC Propofol (Diprivan) 20 ml @ As Directed STK-MED ONCE IV ; Start 10/13/16 at 18: 42; Stop 10/13/16 at 18:43; Status DC Lidocaine HCl 100 mg STK-MED ONCE .ROUTE ; Start 10/13/16 at 18:42; Stop at 18:43; Status DC Ondansetron HCl (Zofran) 4 mg STK-MED ONCE .ROUTE ; Start 10/13/16 at 19:16; Stop 10/13/16 at 19:17; Status DC Phenylephrine HCl 1 mg STK-MED ONCE IV ; Start 10/13/16 at 19:16; Stop 10/13/16 at 19:17; Status DC Sevoflurane (Ultane) 30 ml STK-MED ONCE IH ; Start 10/13/16 at 19:28; Stop 10/13 at 19:29; Status DC Dexamethasone Sodium Phosphate (Decadron) 20 mg STK-MED ONCE .ROUTE ; Start at 19:29; Stop 10/13/16 at 19:30; Status DC Albuterol/ Ipratropium (Duoneb) 3 ml 1X ONCE NEB Last administered on t 03:45; Start 10/14/16 at 03:45; Stop 10/14/16 at 03:46; Status DC Furosemide 20 mg 20 mg 1X ONCE IVP Last administered on 10/14/16 05:26; Start 10/14/16 at 05:15; Stop 10/14/16 at 05:16; Status DC Vancomycin HCl/ Sodium Chloride (Iv Sodium Chloride 0.9% 250ml) 250 ml @ 250 mls/hr Q12H IV Last administered on 10/15/16 09:05; Start 10/14/16 at 06:00; Stop 10/15/16 at 22:33; Status DC Vancomycin HCl 1 each 1X ONCE MC Last administered on 10/15/16 21:30; Start 10/15/16 at 20:30; Stop 10/15/16 at 20:31; Status DC Furosemide (Lasix) 40 mg 1X ONCE IVP Last administered on 10/14/16 10:35; Start 10/14/16 at 10:30; Stop 10/14/16 at 10:31; Status DC Alteplase, Recombinant (Cathflo) 2 mg 1X ONCE INT CAT Last administered on 05:17; Start 10/15/16 at 05:30; Stop 10/15/16 at 05:31; Status DC Loperamide HCl (Imodium) 2 mg PRN Q4HRS PRN PEG DIARRHEA Last administered on 00:01; Start 10/15/16 at 14:30 Cyanocobalamin (Vitamin B-12) 1,000 mcg QTH IM Last administered on 10/15/16 18:17; Start 10/15/16 at 16:00 Pantoprazole Sodium (Protonix Vial) 40 mg DAILYAC IVP Last administered on 10/16 09:05; Start 10/15/16 at 19:15 Sucralfate 1 gm 1 gm Q6HRS PEG ; Start 10/16/16 at 19:00 Vancomycin HCl/ Sodium Chloride (Iv Sodium Chloride 0.9% 250ml) 250 ml @ 250 mls/hr Q24H IV Last administered on 10/16/16 08:59; Start 10/16/16 at 09:00 Vancomycin HCl 1 each 1 each 1X ONCE MC ; Start 10/18/16 at 08:30; Stop at 08:31 Piperacillin Sod/ Tazobactam Sod/ Sodium Chloride (Zosyn/Iv Sodium Chloride 0.9 % 50ml) 50 ml @ 100 mls/hr Q6HRS IV ; Start 10/16/16 at 12:00 Albuterol/ Ipratropium (Duoneb) 3 ml RTQID NEB Last administered on 10/16/16 11:08; Start 10/16/16 at 08:30 Metoprolol Tartrate (Lopressor) 25 mg BID PO Last administered on 10/16/16 10: 14; Start 10/16/16 at 10:00 Hydralazine HCl (Apresoline) 10 mg PRN Q4HRS PRN IVP ELEVATED BP, SEE COMMENTS Last administered on 10/16/16 10:16; Start 10/16/16 at 10:00 Active Scripts Active Reported Isopto Tears (Hypromellose) 15 Ml Drops 15 Ml OP Oxycodone Hcl 10 Mg Tablet 1 Tab PO QID Ocuvite Tablet (Vit A,C & E/Lutein/Minerals) 1 Each Tablet 1 Each PO Dulcolax (Bisacodyl) 10 Mg Supp.rect 10 Mg RC PRN DAILY PRN Milk Of Magnesia (Magnesium Hydroxide) 400 Mg/5 Ml Oral.susp 400 Mg PO Simvastatin 20 Mg Tablet 1 Tab PO QHS Refresh Optive Eye Drops (Carboxymethylcellulos/Glycerin) 15 Ml Drops 1 Drop EACHEYE BID Tamsulosin Hcl 0.4 Mg Cap.er.24h 1 Cap PO DAILY Potassium Chloride Oral Liquid (Potassium Chloride) 20 Meq/15 Ml Liquid 10 Meq PEG DAILY Aspir 81 (Aspirin) 81 Mg Tablet.dr 1 Tab PO DAILY Furosemide 40 Mg Tablet 1 Tab PO DAILY Meloxicam 7.5 Mg Tablet 1 Tab PO DAILY Trazodone Hcl 50 Mg Tablet 1 Tab PO QHS Mucinex (Guaifenesin) 600 Mg Tablet.er 600 Mg PO Vitals/I & O Vital Sign - Last 24 Hours 10/15/16 10/15/16 10/15/16 10/15/16 12:16 15:00 19:00 20:00 Temp 98.2 98.6 98.5 98.2 98.6 98.5 Pulse 80 74 85 Resp 20 18 16 B/P 144/68 158/59 145/61 Pulse Ox 95 94 96 O2 Delivery Nasal Cannula Nasal Cannula Nasal Cannula Nasal Cannula O2 Flow Rate 3.0 10/15/16 10/15/16 10/15/16 10/16/16 20:11 21:15 22:08 00:49 Temp 99.3 99.3 Pulse 89 Resp 20 24 B/P 164/70 184/72 Pulse Ox 94 94 98 O2 Delivery Nasal Cannula Nasal Cannula O2 Flow Rate 4.0 4.0 10/16/16 10/16/16 10/16/16 10/16/16 03:00 07:55 08:00 08:00 Temp 98.2 98.2 98.2 98.2 Pulse 70 74 Resp 18 24 B/P 175/64 190/80 Pulse Ox 97 97 O2 Delivery Nasal Cannula Nasal Cannula Nasal Cannula O2 Flow Rate 3.0 3.0 3.0 3.0 10/16/16 10/16/16 10/16/16 10/16/16 08:47 10:14 10:16 10:49 Temp 98.4 98.4 Pulse 79 96 92 96 Resp 24 B/P 190/80 165/71 165/71 165/71 Pulse Ox 97 O2 Delivery Nasal Cannula O2 Flow Rate 3.0 10/16/16 11:08 Pulse Ox 97 O2 Delivery Nasal Cannula O2 Flow Rate 3.0 Intake and Output 10/15/16 10/15/16 10/16/16 15:00 23:00 07:00 Intake Total 310 ml 1080 ml Output Total 400 ml 880 ml Balance 310 ml 680 ml -880 ml Problem List Problems Medical Problems: (1) Altered mental status Status: Acute (2) Gouty arthropathy, chronic, with tophi Status: Acute (3) Hospital acquired PNA Status: Acute Assessment Oropharyngeal dysphagia- S/p peg, tolerating feedings Rectal bleed- with anemia blood loss, LGI source likely with diverticualr bleed contributing, recommend transfusional support and bleeding scan to assess. USP prognosis is poor- disposition plans need to be addressed with multiple co- morbidities MICHELLE REDDY MD Oct 16, 2016 12:06
[2016-10-16] MEDS: PIPERACILLIN/TAZOBACTAM 3.375 GM in IV NORMAL SALINE 50ML 50 ML IV SCH ×2 (12:20→17:34)
[2016-10-16] MEDS: ENOXAPARIN 40 MG/0.4 ML DISP.SYRIN. SQ SCH (13:00)
[2016-10-16] MEDS ORDERED: ALTEPLASE 2 MG VIAL INT CAT ONE (13:45)
[2016-10-16 14:10] LABS: RED BLOOD COUNT 2.27 x10^6/uL (4.30-5.70); RED CELL DISTRIBUTION WIDTH 14.3 % (11.5-14.5); WHITE BLOOD COUNT 12.4 x10^3/uL (4.0-11.0)
[2016-10-16 14:15] LABS: HEMOGLOBIN 6.8 g/dL (13.0-17.5)
--- NOTE | 2016-10-16 14:16 | PDOC ---
PROGRESS NOTES Chief Complaint Chief Complaint LOC SOB ASSESSMENT AND PLAN: 1. hematochezia: new. prob related to PEG placement. GI consulted. decreasing clinically. hold ASA, lovenox, mobic for now 2. Anemia: multifactorial, incl acute blood loss/GIB. transfuse PRBC x1. moniotr H/H 3. CHF: diastolic (hx EF 50%), acute on chronic: much improved clinically. PO lasix. nebs, suppl O2. CXR with borderline vasc congestion on 09/16 4. AMS: fluctuating. metabolic encephalopathy likely 2/2 hypoxia, poss sedative meds in rehab; at recent PNA admit, had hallucination 5. Dementia: mild at baseline. 6. Afib w/ RVR: resolved, back in NSR. on dig 7. Hx CAD with CABG: no acute issues; cont home meds 8. HTN: well controlled 9. HLD: on statin 10. 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 AAA: 4cm, stable 12. Dysphagia: PEG re-placement 10/[address] Hammond. TF started 13. Diarrhea: was started on fibersource for TF. trial of Jevity. loperamide PRN (Stool was C.diff neg) 14. L olecranon abscess/gouty tophus: s/p I&D on 10/[address] Calderon. wound care as per surg. on vanco/Zosyn/wilda. cult NGTD (48h) 15. OA: on Mobic, hold w/ GIB 16. BPH: Tinsley in CCU. on proscar 17. Dispo: ok for med floor. OOB with assist Vitals Vitals Vital Signs Date Time Temp Pulse Resp B/P Pulse Ox O2 Delivery O2 Flow Rate FiO2 10/16/16 11:08 97 Nasal Cannula 3.0 10/16/16 10:49 98.4 96 24 165/71 98.4 Physical Exam General: No acute distress, Other (lethargic, on BiPAP) Heart: Regular rate, Normal S1, Normal S2 Lungs: Crackles Abdomen: Soft, No tenderness, Other (peg in mid abd) Extremities: No clubbing, No cyanosis, Other (L Ue in thick gauze dressing) Skin: Other Labs LABS Laboratory Tests Test 10/15/16 21:50 10/16/16 02:00 10/16/16 10:10 Vancomycin Level Trough 27.7mcg/mL (10.0-20.0) Vancomycin Last Dose Date 10/15/16 Vancomycin Last Dose Time 0900 White Blood Count 10.9x10^3/uL (4.0-11.0) 11.3x10^3/uL (4.0-11.0) Red Blood Count 2.75x10^6/uL (4.30-5.70) 2.34x10^6/uL (4.30-5.70) Hemoglobin 8.2g/dL (13.0-17.5) 7.0g/dL (13.0-17.5) Hematocrit 25.7% (39.0-53.0) 21.2% (39.0-53.0) Mean Corpuscular Volume 94fL (79-100) 91fL (79-100) Mean Corpuscular Hemoglobin 30pg (25-35) 30pg (25-35) Mean Corpuscular Hemoglobin Concent 32g/dL (31-37) 33g/dL (31-37) Red Cell Distribution Width 14.5% (11.5-14.5) 14.1% (11.5-14.5) Platelet Count 320x10^3/uL (140-400) 310x10^3/uL (140-400) Neutrophils (%) (Auto) 67% (31-73) 82% (31-73) Lymphocytes (%) (Auto) 17% (24-48) 10% (24-48) Monocytes (%) (Auto) 7% (0-9) 6% (0-9) Eosinophils (%) (Auto) 8% (0-3) 1% (0-3) Basophils (%) (Auto) 1% (0-3) 1% (0-3) Neutrophils # (Auto) 7.3x10^3uL (1.8-7.7) 9.3x10^3uL (1.8-7.7) Lymphocytes # (Auto) 1.9x10^3/uL (1.0-4.8) 1.1x10^3/uL (1.0-4.8) Monocytes # (Auto) 0.8x10^3/uL (0.0-1.1) 0.7x10^3/uL (0.0-1.1) Eosinophils # (Auto) 0.8x10^3/uL (0.0-0.7) 0.1x10^3/uL (0.0-0.7) Basophils # (Auto) 0.1x10^3/uL (0.0-0.2) 0.1x10^3/uL (0.0-0.2) Prothrombin Time 15.8SEC (11.7-14.0) Prothromb Time International Ratio 1.3 (0.8-1.1) Sodium Level 146mmol/L (136-145) 147mmol/L (136-145) Potassium Level 4.4mmol/L (3.5-5.1) 4.1mmol/L (3.5-5.1) Chloride Level 108mmol/L (98-107) 111mmol/L (98-107) Carbon Dioxide Level 33mmol/L (21-32) 33mmol/L (21-32) Anion Gap 5 (6-14) 3 (6-14) Blood Urea Nitrogen 45mg/dL (8-26) 47mg/dL (8-26) Creatinine 1.2mg/dL (0.7-1.3) 1.1mg/dL (0.7-1.3) Estimated GFR (Cockcroft-Gault) 59.0 65.3 Glucose Level 116mg/dL (70-99) 171mg/dL (70-99) Calcium Level 8.2mg/dL (8.5-10.1) 8.1mg/dL (8.5-10.1) Magnesium Level 2.5mg/dL (1.8-2.4) BUN/Creatinine Ratio 43 (6-20) Total Bilirubin 0.5mg/dL (0.2-1.0) Aspartate Amino Transf (AST/SGOT) 19U/L (15-37) Alanine Aminotransferase (ALT/SGPT) 20U/L (16-63) Alkaline Phosphatase 44U/L (46-116) Total Protein 5.2g/dL (6.4-8.2) Albumin 1.3g/dL (3.4-5.0) Albumin/Globulin Ratio 0.3 (1.0-1.7) Review of Systems Review of Systems obtunded, nonverbal IVY PAYTON MD Oct 16, 2016 14:16
--- NOTE | 2016-10-16 16:05 | RAD ---
Radionuclide GI bleeding scan, 10/16/2016: History: Bloody stool The exam was performed utilizing 33 mCi of technetium 99m and a labeled red blood cell technique. Imaging obtained out to 1 hour showed no abnormal accumulation of activity in the abdomen or pelvis to suggest active GI tract bleeding. There is increased activity in the region of the distal aorta on all of the scans, corresponding to the patient's known abdominal aortic aneurysm. IMPRESSION: No evidence of active GI tract bleeding.
[2016-10-16] MEDS ORDERED: IV 1/2 NORMAL SALINE 500 ML IV ONE (17:15)
[2016-10-16] MEDS: SUCRALFATE 1 GM/10 ML ORAL.SUSP. PEG SCH (21:23)
[2016-10-16] MEDS: SIMVASTATIN 20 MG TABLET PO SCH (21:23)
[2016-10-17] MEDS: SUCRALFATE 1 GM/10 ML ORAL.SUSP. PEG SCH ×4 (00:30→17:18)
[2016-10-17] MEDS: PIPERACILLIN/TAZOBACTAM 3.375 GM in IV NORMAL SALINE 50ML 50 ML IV SCH ×4 (00:30→17:19)
[2016-10-17 03:00] VITALS: BP 162/69
[2016-10-17 04:21] LABS: BASO # 0.1 x10^3/uL (0.0-0.2); BASO % 0 % (0-3); EOS % 4 % (0-3); HEMATOCRIT 23.5 % (39.0-53.0); HEMOGLOBIN 7.5 g/dL (13.0-17.5); LYMPH % 15 % (24-48); MEAN CORPUSCULAR HEMOGLOBIN 29 pg (25-35); MEAN CORPUSCULAR HGB CONC 32 g/dL (31-37); MEAN CORPUSCULAR VOLUME 90 fL (79-100); MONO % 7 % (0-9); NEUT % 74 % (31-73); PLATELET COUNT 303 x10^3/uL (140-400); RED BLOOD COUNT 2.61 x10^6/uL (4.30-5.70); RED CELL DISTRIBUTION WIDTH 16.5 % (11.5-14.5); WHITE BLOOD COUNT 13.4 x10^3/uL (4.0-11.0)
[2016-10-17 04:37] LABS: CALCIUM 8.3 mg/dL (8.5-10.1); CREATININE 1.1 mg/dL (0.7-1.3); GFR 65.3; POTASSIUM 3.1 mmol/L (3.5-5.1)
[2016-10-17 07:56] VITALS: BP 178/59
--- NOTE | 2016-10-17 08:09 | PDOC ---
PULMONARY PROGRESS NOTES Subjective Better today off BIPAP more awake, sob, cough, on 02. no pain Vitals Vital Signs Date Time Temp Pulse Resp B/P Pulse Ox O2 Delivery O2 Flow Rate FiO2 10/17/16 07:56 97.5 68 20 178/59 97 Nasal Cannula 2.0 97.5 Comments discussed w rn, ludmila other sys otherwise neg General: Alert HEENT: Other (nc, at, perrl, nose clear) Lungs: Crackles Cardiovascular: S1, S2 Abdomen: Soft, Non-tender Neuro Exam: Alert Extremities: Other (1+edema) Skin: Warm Labs Laboratory Tests Test 10/15/16 21:50 10/16/16 02:00 10/16/16 10:10 10/16/16 14:00 Vancomycin Level Trough 27.7mcg/mL (10.0-20.0) Vancomycin Last Dose Date 10/15/16 Vancomycin Last Dose Time 0900 White Blood Count 10.9x10^3/uL (4.0-11.0) 11.3x10^3/uL (4.0-11.0) 12.4x10^3/uL (4.0-11.0) Red Blood Count 2.75x10^6/uL (4.30-5.70) 2.34x10^6/uL (4.30-5.70) 2.27x10^6/uL (4.30-5.70) Hemoglobin 8.2g/dL (13.0-17.5) 7.0g/dL (13.0-17.5) 6.8g/dL (13.0-17.5) Hematocrit 25.7% (39.0-53.0) 21.2% (39.0-53.0) 21.0% (39.0-53.0) Mean Corpuscular Volume 94fL (79-100) 91fL (79-100) 93fL (79-100) Mean Corpuscular Hemoglobin 30pg (25-35) 30pg (25-35) 30pg (25-35) Mean Corpuscular Hemoglobin Concent 32g/dL (31-37) 33g/dL (31-37) 32g/dL (31-37) Red Cell Distribution Width 14.5% (11.5-14.5) 14.1% (11.5-14.5) 14.3% (11.5-14.5) Platelet Count 320x10^3/uL (140-400) 310x10^3/uL (140-400) 316x10^3/uL (140-400) Neutrophils (%) (Auto) 67% (31-73) 82% (31-73) Lymphocytes (%) (Auto) 17% (24-48) 10% (24-48) Monocytes (%) (Auto) 7% (0-9) 6% (0-9) Eosinophils (%) (Auto) 8% (0-3) 1% (0-3) Basophils (%) (Auto) 1% (0-3) 1% (0-3) Neutrophils # (Auto) 7.3x10^3uL (1.8-7.7) 9.3x10^3uL (1.8-7.7) Lymphocytes # (Auto) 1.9x10^3/uL (1.0-4.8) 1.1x10^3/uL (1.0-4.8) Monocytes # (Auto) 0.8x10^3/uL (0.0-1.1) 0.7x10^3/uL (0.0-1.1) Eosinophils # (Auto) 0.8x10^3/uL (0.0-0.7) 0.1x10^3/uL (0.0-0.7) Basophils # (Auto) 0.1x10^3/uL (0.0-0.2) 0.1x10^3/uL (0.0-0.2) Prothrombin Time 15.8SEC (11.7-14.0) Prothromb Time International Ratio 1.3 (0.8-1.1) Sodium Level 146mmol/L (136-145) 147mmol/L (136-145) Potassium Level 4.4mmol/L (3.5-5.1) 4.1mmol/L (3.5-5.1) Chloride Level 108mmol/L (98-107) 111mmol/L (98-107) Carbon Dioxide Level 33mmol/L (21-32) 33mmol/L (21-32) Anion Gap 5 (6-14) 3 (6-14) Blood Urea Nitrogen 45mg/dL (8-26) 47mg/dL (8-26) Creatinine 1.2mg/dL (0.7-1.3) 1.1mg/dL (0.7-1.3) Estimated GFR (Cockcroft-Gault) 59.0 65.3 Glucose Level 116mg/dL (70-99) 171mg/dL (70-99) Calcium Level 8.2mg/dL (8.5-10.1) 8.1mg/dL (8.5-10.1) Magnesium Level 2.5mg/dL (1.8-2.4) BUN/Creatinine Ratio 43 (6-20) Total Bilirubin 0.5mg/dL (0.2-1.0) Aspartate Amino Transf (AST/SGOT) 19U/L (15-37) Alanine Aminotransferase (ALT/SGPT) 20U/L (16-63) Alkaline Phosphatase 44U/L (46-116) Total Protein 5.2g/dL (6.4-8.2) Albumin 1.3g/dL (3.4-5.0) Albumin/Globulin Ratio 0.3 (1.0-1.7) Test 10/17/16 03:45 White Blood Count 13.4x10^3/uL (4.0-11.0) Red Blood Count 2.61x10^6/uL (4.30-5.70) Hemoglobin 7.5g/dL (13.0-17.5) Hematocrit 23.5% (39.0-53.0) Mean Corpuscular Volume 90fL (79-100) Mean Corpuscular Hemoglobin 29pg (25-35) Mean Corpuscular Hemoglobin Concent 32g/dL (31-37) Red Cell Distribution Width 16.5% (11.5-14.5) Platelet Count 303x10^3/uL (140-400) Neutrophils (%) (Auto) 74% (31-73) Lymphocytes (%) (Auto) 15% (24-48) Monocytes (%) (Auto) 7% (0-9) Eosinophils (%) (Auto) 4% (0-3) Basophils (%) (Auto) 0% (0-3) Neutrophils # (Auto) 10.0x10^3uL (1.8-7.7) Lymphocytes # (Auto) 2.0x10^3/uL (1.0-4.8) Monocytes # (Auto) 0.9x10^3/uL (0.0-1.1) Eosinophils # (Auto) 0.5x10^3/uL (0.0-0.7) Basophils # (Auto) 0.1x10^3/uL (0.0-0.2) Sodium Level 150mmol/L (136-145) Potassium Level 3.1mmol/L (3.5-5.1) Chloride Level 112mmol/L (98-107) Carbon Dioxide Level 33mmol/L (21-32) Anion Gap 5 (6-14) Blood Urea Nitrogen 36mg/dL (8-26) Creatinine 1.1mg/dL (0.7-1.3) Estimated GFR (Cockcroft-Gault) 65.3 Glucose Level 131mg/dL (70-99) Calcium Level 8.3mg/dL (8.5-10.1) Laboratory Tests Test 10/16/16 10:10 10/16/16 14:00 10/17/16 03:45 White Blood Count 11.3x10^3/uL (4.0-11.0) 12.4x10^3/uL (4.0-11.0) 13.4x10^3/uL (4.0-11.0) Red Blood Count 2.34x10^6/uL (4.30-5.70) 2.27x10^6/uL (4.30-5.70) 2.61x10^6/uL (4.30-5.70) Hemoglobin 7.0g/dL (13.0-17.5) 6.8g/dL (13.0-17.5) 7.5g/dL (13.0-17.5) Hematocrit 21.2% (39.0-53.0) 21.0% (39.0-53.0) 23.5% (39.0-53.0) Mean Corpuscular Volume 91fL (79-100) 93fL (79-100) 90fL (79-100) Mean Corpuscular Hemoglobin 30pg (25-35) 30pg (25-35) 29pg (25-35) Mean Corpuscular Hemoglobin Concent 33g/dL (31-37) 32g/dL (31-37) 32g/dL (31-37) Red Cell Distribution Width 14.1% (11.5-14.5) 14.3% (11.5-14.5) 16.5% (11.5-14.5) Platelet Count 310x10^3/uL (140-400) 316x10^3/uL (140-400) 303x10^3/uL (140-400) Neutrophils (%) (Auto) 82% (31-73) 74% (31-73) Lymphocytes (%) (Auto) 10% (24-48) 15% (24-48) Monocytes (%) (Auto) 6% (0-9) 7% (0-9) Eosinophils (%) (Auto) 1% (0-3) 4% (0-3) Basophils (%) (Auto) 1% (0-3) 0% (0-3) Neutrophils # (Auto) 9.3x10^3uL (1.8-7.7) 10.0x10^3uL (1.8-7.7) Lymphocytes # (Auto) 1.1x10^3/uL (1.0-4.8) 2.0x10^3/uL (1.0-4.8) Monocytes # (Auto) 0.7x10^3/uL (0.0-1.1) 0.9x10^3/uL (0.0-1.1) Eosinophils # (Auto) 0.1x10^3/uL (0.0-0.7) 0.5x10^3/uL (0.0-0.7) Basophils # (Auto) 0.1x10^3/uL (0.0-0.2) 0.1x10^3/uL (0.0-0.2) Sodium Level 147mmol/L (136-145) 150mmol/L (136-145) Potassium Level 4.1mmol/L (3.5-5.1) 3.1mmol/L (3.5-5.1) Chloride Level 111mmol/L (98-107) 112mmol/L (98-107) Carbon Dioxide Level 33mmol/L (21-32) 33mmol/L (21-32) Anion Gap 3 (6-14) 5 (6-14) Blood Urea Nitrogen 47mg/dL (8-26) 36mg/dL (8-26) Creatinine 1.1mg/dL (0.7-1.3) 1.1mg/dL (0.7-1.3) Estimated GFR (Cockcroft-Gault) 65.3 65.3 BUN/Creatinine Ratio 43 (6-20) Glucose Level 171mg/dL (70-99) 131mg/dL (70-99) Calcium Level 8.1mg/dL (8.5-10.1) 8.3mg/dL (8.5-10.1) Total Bilirubin 0.5mg/dL (0.2-1.0) Aspartate Amino Transf (AST/SGOT) 19U/L (15-37) Alanine Aminotransferase (ALT/SGPT) 20U/L (16-63) Alkaline Phosphatase 44U/L (46-116) Total Protein 5.2g/dL (6.4-8.2) Albumin 1.3g/dL (3.4-5.0) Albumin/Globulin Ratio 0.3 (1.0-1.7) Medications Active Scripts Medications Dose Route/Sig Days Date Category Isopto Tears (Hypromellose) 15 Ml Drops 15 Ml OP 10/06/16 Reported Oxycodone Hcl 10 Mg Tablet 1 Tab PO QID 10/06/16 Reported Ocuvite Tablet (Vit A,C & E/Lutein/Minerals) 1 Each Tablet 1 Each PO 10/06/16 Reported Dulcolax (Bisacodyl) 10 Mg Supp.rect 10 Mg RC PRN DAILY PRN 10/06/16 Reported Milk Of Magnesia (Magnesium Hydroxide) 400 Mg/5 Ml Oral.susp 400 Mg PO 10/06/16 Reported Simvastatin 20 Mg Tablet 1 Tab PO QHS 10/06/16 Reported Refresh Optive Eye Drops (Carboxymethylcellulos/Glycerin) 15 Ml Drops 1 Drop EACHEYE BID 10/06/16 Reported Tamsulosin Hcl 0.4 Mg Cap.er.24h 1 Cap PO DAILY 10/06/16 Reported Potassium Chloride Oral Liquid (Potassium Chloride) 20 Meq/15 Ml Liquid 10 Meq PEG DAILY 10/06/16 Reported Aspir 81 (Aspirin) 81 Mg Tablet.dr 1 Tab PO DAILY 10/06/16 Reported Furosemide 40 Mg Tablet 1 Tab PO DAILY 10/06/16 Reported Meloxicam 7.5 Mg Tablet 1 Tab PO DAILY 10/06/16 Reported Trazodone Hcl 50 Mg Tablet 1 Tab PO QHS 10/06/16 Reported Mucinex (Guaifenesin) 600 Mg Tablet.er 600 Mg PO 10/06/16 Reported Comments cxr reviewed, 1. Cardiomegaly with borderline vascular congestion. 2. Unchanged pleural fluid and atelectasis in the left base. 3. Resolving mild right basilar opacities. Impression . 1. Acute hypoxic respiratory failure, multifactorial on bipap 2. Questionable mild chronic obstructive pulmonary disease 3. Hyponatremia 4. Abnormal chest x-ray with mild cardiomegaly and volume loss, left lower lobe. 5. History of coronary artery disease. 6. History of chronic percutaneous endoscopic gastrostomy tube. He uses enteral nutrition as well as oral nutrition. 7. Leukocytosis,/ fever, improved 8. gib, gi following Plan . PRN BIPAP, SETTING REVIEWED 02 TITRATION CXR REVIEWED BETTER WITH LASIX S/P Peg replacement on 10/13 PROTONIX IV, FOLLOW GI REC BRONCHODILATORS DISCUSSED W LAURIE ORELLANA MD Oct 17, 2016 08:09
[2016-10-17] MEDS: IPRATRPIUM/ALBUTEROL 0.5/2.5MG 3 ML NEBU. NEB SCH ×4 (08:25→20:46)
[2016-10-17] MEDS: DIGOXIN 125 MCG TABLET PO SCH (08:35)
[2016-10-17] MEDS: LACTOBACILLUS ACIDOPH & BULGAR 1 TABLET. PO SCH (08:35)
[2016-10-17] MEDS: METOPROLOL TART IMMED RELEASE 25 MG TABLET PO SCH ×2 (08:36→21:31)
[2016-10-17] MEDS: MULTIVITAMIN EYE FORMULA CAPSULE. PO SCH (08:36)
[2016-10-17] MEDS: FUROSEMIDE 40 MG TABLET PO SCH (08:36)
[2016-10-17] MEDS: GUAIFENESIN 200 MG/10 ML LIQUID. PO SCH ×4 (08:37→21:31)
[2016-10-17] MEDS: PANTOPRAZOLE IV PUSH 40 MG VIAL. IVP SCH (08:37)
[2016-10-17] MEDS: FINASTERIDE 5 MG TABLET PO SCH (08:37)
[2016-10-17] MEDS: POTASSIUM CHLORIDE 20 MEQ/15 ML ORAL LIQUID. PEG SCH (08:38)
[2016-10-17] MEDS: POLYVINYL ALCOHOL 1.4% OPHTH SOLUTION 15ML BOTTLE. OU PRN (08:38)
[2016-10-17] MEDS: NYSTATIN 100,000 UNITS/ML 5 ML ORAL.SUSP. SWSW SCH ×4 (09:00→21:31)
--- NOTE | 2016-10-17 09:29 | PDOC ---
Infectious Disease Note Subjective Subjective s/p blood transfusion + loose stools Tube feedings No fever ROS ROS unobtainable Vital Sign Vital Signs Vital Signs Date Time Temp Pulse Resp B/P Pulse Ox O2 Delivery O2 Flow Rate FiO2 10/17/16 08:36 76 178/80 10/17/16 08:32 99 Nasal Cannula 3.0 10/17/16 07:56 97.5 20 97.5 Physical Exam PHYSICAL EXAM GENERAL: Sleepy, NAD HEENT: Oral cavity dry LUNGS: Clear HEART: S1S2, no gallop, no murmur ABD: Soft, NT, PEG intact : Tinsley. 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 clean Labs Lab Laboratory Tests Test 10/16/16 10:10 10/16/16 14:00 10/17/16 03:45 White Blood Count 11.3x10^3/uL (4.0-11.0) 12.4x10^3/uL (4.0-11.0) 13.4x10^3/uL (4.0-11.0) Red Blood Count 2.34x10^6/uL (4.30-5.70) 2.27x10^6/uL (4.30-5.70) 2.61x10^6/uL (4.30-5.70) Hemoglobin 7.0g/dL (13.0-17.5) 6.8g/dL (13.0-17.5) 7.5g/dL (13.0-17.5) Hematocrit 21.2% (39.0-53.0) 21.0% (39.0-53.0) 23.5% (39.0-53.0) Mean Corpuscular Volume 91fL (79-100) 93fL (79-100) 90fL (79-100) Mean Corpuscular Hemoglobin 30pg (25-35) 30pg (25-35) 29pg (25-35) Mean Corpuscular Hemoglobin Concent 33g/dL (31-37) 32g/dL (31-37) 32g/dL (31-37) Red Cell Distribution Width 14.1% (11.5-14.5) 14.3% (11.5-14.5) 16.5% (11.5-14.5) Platelet Count 310x10^3/uL (140-400) 316x10^3/uL (140-400) 303x10^3/uL (140-400) Neutrophils (%) (Auto) 82% (31-73) 74% (31-73) Lymphocytes (%) (Auto) 10% (24-48) 15% (24-48) Monocytes (%) (Auto) 6% (0-9) 7% (0-9) Eosinophils (%) (Auto) 1% (0-3) 4% (0-3) Basophils (%) (Auto) 1% (0-3) 0% (0-3) Neutrophils # (Auto) 9.3x10^3uL (1.8-7.7) 10.0x10^3uL (1.8-7.7) Lymphocytes # (Auto) 1.1x10^3/uL (1.0-4.8) 2.0x10^3/uL (1.0-4.8) Monocytes # (Auto) 0.7x10^3/uL (0.0-1.1) 0.9x10^3/uL (0.0-1.1) Eosinophils # (Auto) 0.1x10^3/uL (0.0-0.7) 0.5x10^3/uL (0.0-0.7) Basophils # (Auto) 0.1x10^3/uL (0.0-0.2) 0.1x10^3/uL (0.0-0.2) Sodium Level 147mmol/L (136-145) 150mmol/L (136-145) Potassium Level 4.1mmol/L (3.5-5.1) 3.1mmol/L (3.5-5.1) Chloride Level 111mmol/L (98-107) 112mmol/L (98-107) Carbon Dioxide Level 33mmol/L (21-32) 33mmol/L (21-32) Anion Gap 3 (6-14) 5 (6-14) Blood Urea Nitrogen 47mg/dL (8-26) 36mg/dL (8-26) Creatinine 1.1mg/dL (0.7-1.3) 1.1mg/dL (0.7-1.3) Estimated GFR (Cockcroft-Gault) 65.3 65.3 BUN/Creatinine Ratio 43 (6-20) Glucose Level 171mg/dL (70-99) 131mg/dL (70-99) Calcium Level 8.1mg/dL (8.5-10.1) 8.3mg/dL (8.5-10.1) Total Bilirubin 0.5mg/dL (0.2-1.0) Aspartate Amino Transf (AST/SGOT) 19U/L (15-37) Alanine Aminotransferase (ALT/SGPT) 20U/L (16-63) Alkaline Phosphatase 44U/L (46-116) Total Protein 5.2g/dL (6.4-8.2) Albumin 1.3g/dL (3.4-5.0) Albumin/Globulin Ratio 0.3 (1.0-1.7) Objective Assessment Leukocytosis - increased ? post op/Dexamethasone 10/13 with surgery/ ? reactive with GI bleed/ blood transfusion GI bleed Left elbow effusion s/p I and D 10/13. + Crystals. Cults neg. Gout S/p PEG replacement 10/13 Encephalopathy Fever - better Pneumonia - Left effusion. Debility Gluteal ulcer/decub Diarrhea. c. diff negative s/p nails debrided x 10 with microbleed to left hallux. 10/09 Inguinal hernia Plan Plan of Care Cont Zosyn (10/06) d/c micafungin (10/08) Vanc (10/10) - Monitor labs Supportive care MACKENZIE WASHINGTON APRN Oct 17, 2016 09:29 ALICE MATTHEW MD Oct 17, 2016 13:21
[2016-10-17] MEDS: VANCOMYCIN 1 GM in IV NORMAL SALINE 250ML 250 ML IV SCH (09:59)
[2016-10-17] MEDS: NYSTATIN TOPICAL POWDER 15GM BOTTLE. TP SCH ×2 (09:59→21:39)
[2016-10-17] MEDS: MICAFUNGIN 100 MG in IV DEXTROSE 5% 100 ML IV SCH (10:02)
--- NOTE | 2016-10-17 10:02 | PDOC ---
PROGRESS NOTES Subjective Subjective No new complaints. Objective Objective Vital Signs Date Time Temp Pulse Resp B/P Pulse Ox O2 Delivery O2 Flow Rate FiO2 10/17/16 08:36 76 178/80 10/17/16 08:32 99 Nasal Cannula 3.0 10/17/16 07:56 97.5 20 97.5 Intake and Output 10/17/16 07:00 Intake Total 656 ml Output Total 2950 ml Balance -2294 ml Intake Oral 0 ml IV Total 50 ml Tube Feeding 220 ml Blood Product IV Normal Saline Flush 386 ml Output Urine Total 2950 ml # Bowel Movements 4 Physical Exam Physical Exam He is awake and talking and moves all 4 extremities to commands.He had purulent drainage from left elbow wound and less edema around it. Assessment Assessment Problems Medical Problems: (1) Altered mental status Status: Acute (2) Gouty arthropathy, chronic, with tophi Status: Acute (3) Hospital acquired PNA Status: Acute Plan Plan of Care To continue present care and to get him up when he is medically stable. Comment Review of Relevant I have reviewed the following items cassidy (where applicable) has been applied. Labs Laboratory Tests Test 10/15/16 21:50 10/16/16 02:00 10/16/16 10:10 10/16/16 14:00 Vancomycin Level Trough 27.7mcg/mL (10.0-20.0) Vancomycin Last Dose Date 10/15/16 Vancomycin Last Dose Time 0900 White Blood Count 10.9x10^3/uL (4.0-11.0) 11.3x10^3/uL (4.0-11.0) 12.4x10^3/uL (4.0-11.0) Red Blood Count 2.75x10^6/uL (4.30-5.70) 2.34x10^6/uL (4.30-5.70) 2.27x10^6/uL (4.30-5.70) Hemoglobin 8.2g/dL (13.0-17.5) 7.0g/dL (13.0-17.5) 6.8g/dL (13.0-17.5) Hematocrit 25.7% (39.0-53.0) 21.2% (39.0-53.0) 21.0% (39.0-53.0) Mean Corpuscular Volume 94fL (79-100) 91fL (79-100) 93fL (79-100) Mean Corpuscular Hemoglobin 30pg (25-35) 30pg (25-35) 30pg (25-35) Mean Corpuscular Hemoglobin Concent 32g/dL (31-37) 33g/dL (31-37) 32g/dL (31-37) Red Cell Distribution Width 14.5% (11.5-14.5) 14.1% (11.5-14.5) 14.3% (11.5-14.5) Platelet Count 320x10^3/uL (140-400) 310x10^3/uL (140-400) 316x10^3/uL (140-400) Neutrophils (%) (Auto) 67% (31-73) 82% (31-73) Lymphocytes (%) (Auto) 17% (24-48) 10% (24-48) Monocytes (%) (Auto) 7% (0-9) 6% (0-9) Eosinophils (%) (Auto) 8% (0-3) 1% (0-3) Basophils (%) (Auto) 1% (0-3) 1% (0-3) Neutrophils # (Auto) 7.3x10^3uL (1.8-7.7) 9.3x10^3uL (1.8-7.7) Lymphocytes # (Auto) 1.9x10^3/uL (1.0-4.8) 1.1x10^3/uL (1.0-4.8) Monocytes # (Auto) 0.8x10^3/uL (0.0-1.1) 0.7x10^3/uL (0.0-1.1) Eosinophils # (Auto) 0.8x10^3/uL (0.0-0.7) 0.1x10^3/uL (0.0-0.7) Basophils # (Auto) 0.1x10^3/uL (0.0-0.2) 0.1x10^3/uL (0.0-0.2) Prothrombin Time 15.8SEC (11.7-14.0) Prothromb Time International Ratio 1.3 (0.8-1.1) Sodium Level 146mmol/L (136-145) 147mmol/L (136-145) Potassium Level 4.4mmol/L (3.5-5.1) 4.1mmol/L (3.5-5.1) Chloride Level 108mmol/L (98-107) 111mmol/L (98-107) Carbon Dioxide Level 33mmol/L (21-32) 33mmol/L (21-32) Anion Gap 5 (6-14) 3 (6-14) Blood Urea Nitrogen 45mg/dL (8-26) 47mg/dL (8-26) Creatinine 1.2mg/dL (0.7-1.3) 1.1mg/dL (0.7-1.3) Estimated GFR (Cockcroft-Gault) 59.0 65.3 Glucose Level 116mg/dL (70-99) 171mg/dL (70-99) Calcium Level 8.2mg/dL (8.5-10.1) 8.1mg/dL (8.5-10.1) Magnesium Level 2.5mg/dL (1.8-2.4) BUN/Creatinine Ratio 43 (6-20) Total Bilirubin 0.5mg/dL (0.2-1.0) Aspartate Amino Transf (AST/SGOT) 19U/L (15-37) Alanine Aminotransferase (ALT/SGPT) 20U/L (16-63) Alkaline Phosphatase 44U/L (46-116) Total Protein 5.2g/dL (6.4-8.2) Albumin 1.3g/dL (3.4-5.0) Albumin/Globulin Ratio 0.3 (1.0-1.7) Test 10/17/16 03:45 White Blood Count 13.4x10^3/uL (4.0-11.0) Red Blood Count 2.61x10^6/uL (4.30-5.70) Hemoglobin 7.5g/dL (13.0-17.5) Hematocrit 23.5% (39.0-53.0) Mean Corpuscular Volume 90fL (79-100) Mean Corpuscular Hemoglobin 29pg (25-35) Mean Corpuscular Hemoglobin Concent 32g/dL (31-37) Red Cell Distribution Width 16.5% (11.5-14.5) Platelet Count 303x10^3/uL (140-400) Neutrophils (%) (Auto) 74% (31-73) Lymphocytes (%) (Auto) 15% (24-48) Monocytes (%) (Auto) 7% (0-9) Eosinophils (%) (Auto) 4% (0-3) Basophils (%) (Auto) 0% (0-3) Neutrophils # (Auto) 10.0x10^3uL (1.8-7.7) Lymphocytes # (Auto) 2.0x10^3/uL (1.0-4.8) Monocytes # (Auto) 0.9x10^3/uL (0.0-1.1) Eosinophils # (Auto) 0.5x10^3/uL (0.0-0.7) Basophils # (Auto) 0.1x10^3/uL (0.0-0.2) Sodium Level 150mmol/L (136-145) Potassium Level 3.1mmol/L (3.5-5.1) Chloride Level 112mmol/L (98-107) Carbon Dioxide Level 33mmol/L (21-32) Anion Gap 5 (6-14) Blood Urea Nitrogen 36mg/dL (8-26) Creatinine 1.1mg/dL (0.7-1.3) Estimated GFR (Cockcroft-Gault) 65.3 Glucose Level 131mg/dL (70-99) Calcium Level 8.3mg/dL (8.5-10.1) Laboratory Tests Test 10/16/16 10:10 10/16/16 14:00 10/17/16 03:45 White Blood Count 11.3x10^3/uL (4.0-11.0) 12.4x10^3/uL (4.0-11.0) 13.4x10^3/uL (4.0-11.0) Red Blood Count 2.34x10^6/uL (4.30-5.70) 2.27x10^6/uL (4.30-5.70) 2.61x10^6/uL (4.30-5.70) Hemoglobin 7.0g/dL (13.0-17.5) 6.8g/dL (13.0-17.5) 7.5g/dL (13.0-17.5) Hematocrit 21.2% (39.0-53.0) 21.0% (39.0-53.0) 23.5% (39.0-53.0) Mean Corpuscular Volume 91fL (79-100) 93fL (79-100) 90fL (79-100) Mean Corpuscular Hemoglobin 30pg (25-35) 30pg (25-35) 29pg (25-35) Mean Corpuscular Hemoglobin Concent 33g/dL (31-37) 32g/dL (31-37) 32g/dL (31-37) Red Cell Distribution Width 14.1% (11.5-14.5) 14.3% (11.5-14.5) 16.5% (11.5-14.5) Platelet Count 310x10^3/uL (140-400) 316x10^3/uL (140-400) 303x10^3/uL (140-400) Neutrophils (%) (Auto) 82% (31-73) 74% (31-73) Lymphocytes (%) (Auto) 10% (24-48) 15% (24-48) Monocytes (%) (Auto) 6% (0-9) 7% (0-9) Eosinophils (%) (Auto) 1% (0-3) 4% (0-3) Basophils (%) (Auto) 1% (0-3) 0% (0-3) Neutrophils # (Auto) 9.3x10^3uL (1.8-7.7) 10.0x10^3uL (1.8-7.7) Lymphocytes # (Auto) 1.1x10^3/uL (1.0-4.8) 2.0x10^3/uL (1.0-4.8) Monocytes # (Auto) 0.7x10^3/uL (0.0-1.1) 0.9x10^3/uL (0.0-1.1) Eosinophils # (Auto) 0.1x10^3/uL (0.0-0.7) 0.5x10^3/uL (0.0-0.7) Basophils # (Auto) 0.1x10^3/uL (0.0-0.2) 0.1x10^3/uL (0.0-0.2) Sodium Level 147mmol/L (136-145) 150mmol/L (136-145) Potassium Level 4.1mmol/L (3.5-5.1) 3.1mmol/L (3.5-5.1) Chloride Level 111mmol/L (98-107) 112mmol/L (98-107) Carbon Dioxide Level 33mmol/L (21-32) 33mmol/L (21-32) Anion Gap 3 (6-14) 5 (6-14) Blood Urea Nitrogen 47mg/dL (8-26) 36mg/dL (8-26) Creatinine 1.1mg/dL (0.7-1.3) 1.1mg/dL (0.7-1.3) Estimated GFR (Cockcroft-Gault) 65.3 65.3 BUN/Creatinine Ratio 43 (6-20) Glucose Level 171mg/dL (70-99) 131mg/dL (70-99) Calcium Level 8.1mg/dL (8.5-10.1) 8.3mg/dL (8.5-10.1) Total Bilirubin 0.5mg/dL (0.2-1.0) Aspartate Amino Transf (AST/SGOT) 19U/L (15-37) Alanine Aminotransferase (ALT/SGPT) 20U/L (16-63) Alkaline Phosphatase 44U/L (46-116) Total Protein 5.2g/dL (6.4-8.2) Albumin 1.3g/dL (3.4-5.0) Albumin/Globulin Ratio 0.3 (1.0-1.7) Microbiology 10/10/16 Blood Culture - Final, Complete NO GROWTH AFTER 5 DAYS 10/05/16 Urine Culture - Final, Complete 10/05/16 Urine Culture Result 1 (JABARI) - Final, Complete 10/13/16 Gram Stain - Final, Complete Medications Current Medications Albuterol/ Ipratropium (Duoneb) 3 ml 1X ONCE NEB Last administered on t 22:21; Start 10/05/16 at 22:15; Stop 10/05/16 at 22:50; Status DC Ondansetron HCl 4 mg 4 mg PRN Q8HRS PRN IV NAUSEA/VOMITING; Start 10/05/16 at 23 :00; Stop 10/06/16 at 22:59; Status DC Sodium Chloride (Iv Sodium Chloride 0.9% 1000ml Bag) 1,000 ml @ 100 mls/hr Q10H IV Last administered on 10/06/16 18:59; Start 10/05/16 at 22:59; Stop at 22:58; Status DC Albuterol/ Ipratropium 3 ml 3 ml RTQID NEB Last administered on 10/07/16 07:47 ; Start 10/06/16 at 08:00; Stop 10/07/16 at 07:59; Status DC Ceftriaxone Sodium 1 gm/ Sodium Chloride 50 ml @ 100 mls/hr Q24H IV ; Start 10/06/16 at 22:00; Stop 10/06/16 at 22:00; Status DC Levofloxacin/ Dextrose (LEVAQUIN 750mg PREMIX) 150 ml @ 100 mls/hr 1X ONCE IV Last administered on 10/06/16 01:05; Start 10/05/16 at 23:30; Stop 10/06/16 at 00:59; Status DC Vancomycin HCl 1 each 1 each PRN DAILY PRN MC SEE COMMENTS Last administered on 10/07/16 14:14; Start 10/05/16 at 23:00; Stop 10/08/16 at 18:52; Status DC Ceftriaxone Sodium 50 ml @ 100 mls/hr 1X ONCE IV Last administered on 01:05; Start 10/05/16 at 23:30; Stop 10/05/16 at 23:59; Status DC Vancomycin HCl 2 gm/Sodium Chloride 500 ml @ 250 mls/hr 1X ONCE IV Last administered on 10/05/16 23:26; Start 10/06/16 at 00:00; Stop 10/06/16 at 01:59; Status DC Vancomycin HCl/ Sodium Chloride (Iv Sodium Chloride 0.9% 250ml) 250 ml @ 167 mls/hr Q12H IV Last administered on 10/08/16 13:20; Start 10/06/16 at 12:00; Stop 10/08/16 at 18:52; Status DC Vancomycin HCl 1 each 1 each 1X ONCE MC ; Start 10/07/16 at 11:30; Stop 10/07/16 at 11:31; Status DC Piperacillin Sod/ Tazobactam Sod/ Sodium Chloride (Zosyn/Iv Sodium Chloride 0.9 % 50ml) 50 ml @ 100 mls/hr Q6HRS IV Last administered on 10/06/16 11:56; Start 10/06/16 at 11:00; Stop 10/06/16 at 15:24; Status DC Piperacillin Sod/ Tazobactam Sod (Zosyn Per Pharmacy) 1 each PRN DAILY PRN MC SEE COMMENTS; Start 10/06/16 at 10:15; Stop 10/15/16 at 13:06; Status DC Aspirin (Ecotrin) 81 mg DAILY PO ; Start 10/06/16 at 11:30; Stop 10/06/16 at 11:30 ; Status DC Bisacodyl (Dulcolax Supp) 10 mg PRN DAILY PRN RC CONSTIPATION; Start 10/06/16 at 10:15 Furosemide (Lasix) 40 mg DAILY PO Last administered on 10/17/16 08:36; Start 10/06/16 at 11:30 Guaifenesin (Mucinex) 600 mg BID PO ; Start 10/06/16 at 11:30; Stop 10/06/16 at 11 :30; Status DC Potassium Chloride (KCl Oral Soln) 10 meq DAILY PEG Last administered on 08:38; Start 10/06/16 at 11:30 Simvastatin (Zocor) 20 mg QHS PO Last administered on 10/16/16 21:23; Start at 21:00 Tamsulosin HCl (Flomax) 0.4 mg DAILY PO Last administered on 10/07/16 08:58; Start 10/06/16 at 11:30; Stop 10/08/16 at 10:18; Status DC Multivitamins/ Minerals (Ocuvite Lutein) 1 cap DAILY PO Last administered on 08:36; Start 10/06/16 at 11:00 Artificial Tears (Artificial Tears) 1 drop PRN BID PRN OU DRY EYE Last administered on 10/17/16 08:38; Start 10/06/16 at 10:30 Aspirin (Children'S Aspirin) 81 mg DAILYWBKFT PO Last administered on 10/08/16 09:00; Start 10/06/16 at 11:30; Stop 10/08/16 at 11:31; Status DC Guaifenesin (Robitussin) 200 mg QID PO Last administered on 10/17/16 08:37; Start 10/06/16 at 11:30 Furosemide (Lasix) 40 mg 1X ONCE IVP Last administered on 10/06/16 12:01; Start 10/06/16 at 12:00; Stop 10/06/16 at 12:01; Status DC Acetaminophen (Tylenol) 650 mg PRN Q6HRS PRN PEG MILD PAIN / TEMP Last administered on 10/10/16 09:42; Start 10/06/16 at 12:15 Ondansetron HCl (Zofran) 4 mg PRN Q6HRS PRN IV NAUSEA/VOMITING; Start 10/06/16 at 12:15 Enoxaparin Sodium (Lovenox 40mg Syringe) 40 mg Q24H SQ Last administered on 14:43; Start 10/06/16 at 13:00; Stop 10/16/16 at 17:07; Status DC Nystatin 1 alejandro 1 alejandro BID TP Last administered on 10/16/16 21:24; Start at 14:30 Piperacillin Sod/ Tazobactam Sod/ Sodium Chloride (Zosyn/Iv Sodium Chloride 0.9 % 100ml) 100 ml @ 200 mls/hr Q6HRS IV Last administered on 10/16/16 06:30; Start 10/06/16 at 18:00; Stop 10/16/16 at 07:59; Status DC Meloxicam (Mobic) 7.5 mg DAILY PO Last administered on 10/16/16 08:48; Start 10/07/16 at 10:00; Stop 10/16/16 at 17:07; Status DC Acetaminophen/ Hydrocodone Bitart (Lortab 5/325) 1 tab PRN Q4HRS PRN PO MODERATE - SEVERE PAIN Last administered on 10/14/16 14:36; Start 10/07/16 at 10 :45 Furosemide (Lasix) 20 mg 1X ONCE IVP Last administered on 10/07/16 18:24; Start 10/07/16 at 12:00; Stop 10/07/16 at 12:01; Status DC Digoxin 500 mcg 500 mcg 1X ONCE IV Last administered on 10/07/16 22:38; Start 10/07/16 at 22:15; Stop 10/07/16 at 22:17; Status DC Micafungin Sodium/ Dextrose (Mycamine) 100 ml @ 100 mls/hr Q24H IV Last administered on 10/16/16 10:16; Start 10/08/16 at 09:00 Iohexol (Omnipaque 240 Mg/ml) 30 ml 1X ONCE PO Last administered on 10/08/16 11:47; Start 10/08/16 at 09:15; Stop 10/08/16 at 09:18; Status DC Iohexol (Omnipaque 300 Mg/ml) 75 ml 1X ONCE IV Last administered on 10/08/16 11:46; Start 10/08/16 at 09:15; Stop 10/08/16 at 09:18; Status DC Finasteride (Proscar) 5 mg DAILY PO Last administered on 10/17/16 08:37; Start 10/09/16 at 09:00 Methylprednisolone Acetate (Depo-Medrol 40mg Vial) 40 mg 1X ONCE IM ; Start 10/08/16 at 10:45; Stop 10/08/16 at 10:53; Status DC Methylprednisolone Acetate (Depo-Medrol 40mg Vial) 40 mg 1X ONCE IM ; Start 10/08/16 at 10:45; Stop 10/08/16 at 10:53; Status DC Bupivacaine HCl (Sensorcaine-Mpf 0.25%) 10 ml 1X ONCE IJ ; Start 10/08/16 at 10: 45; Stop 10/08/16 at 10:53; Status DC Digoxin (Lanoxin) 125 mcg DAILY PO Last administered on 10/17/16 08:35; Start 10/08/16 at 11:30 Aspirin (Children'S Aspirin) 325 mg DAILYWBKFT PO Last administered on 12:38; Start 10/08/16 at 11:30; Stop 10/08/16 at 13:30; Status DC Lactobacillus Acidophilus (Bacid, Danielle-Bid) 1 tab DAILY PO Last administered on 10/17/16 08:35; Start 10/08/16 at 13:00 Aspirin (Children'S Aspirin) 324 mg DAILYWBKFT PO Last administered on 08:46; Start 10/08/16 at 13:30; Stop 10/16/16 at 17:07; Status DC Oxycodone/ Acetaminophen (Percocet 10/325) 1 tab PRN Q6HRS PRN PO PAIN Last administered on 10/15/16 20:11; Start 10/09/16 at 10:30 Furosemide (Lasix) 20 mg 1X ONCE IVP Last administered on 10/09/16 16:54; Start 10/09/16 at 15:00; Stop 10/09/16 at 15:01; Status DC Urea ([place] Lo 40, X-Viate) 1 alejandro DAILY TP Last administered on 10/16/16 09:03; Start 10/09/16 at 18:00 Nystatin 5 ml 5 ml [id number] Last administered on 10/16/16 21:23; Start 06/18 at 13:00 Potassium Chloride (KCl Premix 10meq) 100 ml @ 100 mls/hr Q1H IV Last administered on 10/10/16 17:00; Start 10/10/16 at 14:00; Stop 10/10/16 at 17:59 ; Status DC Vancomycin HCl 1 each 1 each PRN DAILY PRN MC SEE COMMENTS Last administered on 10/16/16 01:36; Start 10/10/16 at 14:45 Vancomycin HCl 2 gm/Sodium Chloride 500 ml @ 250 mls/hr 1X ONCE IV Last administered on 10/10/16 15:30; Start 10/10/16 at 15:30; Stop 10/10/16 at 17:29 ; Status DC Vancomycin HCl/ Sodium Chloride (Iv Sodium Chloride 0.9% 250ml) 250 ml @ 167 mls/hr Q12H IV Last administered on 10/13/16 17:43; Start 10/11/16 at 05:00; Stop 10/14/16 at 05:57; Status DC Ondansetron HCl (Zofran) 4 mg PRN Q6HRS PRN IV Nausea; Start 10/13/16 at 12:30 ; Stop 10/14/16 at 12:29; Status DC Fentanyl Citrate (Fentanyl 2ml Vial) 25 mcg PRN Q5MIN PRN IV MILD PAIN; Start 10/13/16 at 12:30; Stop 10/14/16 at 12:29; Status DC Fentanyl Citrate (Fentanyl 2ml Vial) 50 mcg PRN Q5MIN PRN IV MODERATE PAIN; Start 10/13/16 at 12:30; Stop 10/14/16 at 12:29; Status DC Morphine Sulfate 1 mg 1 mg PRN Q10MIN PRN IV SEVERE PAIN; Start 10/13/16 at 12: 30; Stop 10/14/16 at 12:29; Status DC Lactated Ringer's (Iv Lactated Ringers) 1,000 ml @ 0 mls/hr Q0M IV ; Start at 12:23; Stop 10/14/16 at 00:22; Status DC Lidocaine HCl 2 ml 1X PRN PRN ID IV START; Start 10/13/16 at 12:30; Stop at 12:29; Status DC Hydromorphone HCl (Dilaudid) 0.5 mg PRN Q10MIN PRN IV SEV PAIN,Second choice; Start 10/13/16 at 12:30; Stop 10/14/16 at 12:29; Status DC Prochlorperazine Edisylate (Compazine) 5 mg PACU PRN PRN IV NAUSEA; Start 10/13 at 12:30; Stop 10/14/16 at 12:29; Status DC Vancomycin HCl 1 each 1 each 1X ONCE MC Last administered on 10/14/16t 05:09; Start 10/14/16 at 04:30; Stop 10/14/16 at 04:31; Status DC Propofol (Diprivan) 20 ml @ As Directed STK-MED ONCE IV ; Start 10/13/16 at 15: 07; Stop 10/13/16 at 15:08; Status DC Lidocaine HCl 5 ml 5 ml STK-MED ONCE .ROUTE ; Start 10/13/16 at 15:07; Stop at 15:08; Status DC Propofol (Diprivan) 20 ml @ As Directed STK-MED ONCE IV ; Start 10/13/16 at 18: 42; Stop 10/13/16 at 18:43; Status DC Lidocaine HCl 100 mg STK-MED ONCE .ROUTE ; Start 10/13/16 at 18:42; Stop at 18:43; Status DC Ondansetron HCl (Zofran) 4 mg STK-MED ONCE .ROUTE ; Start 10/13/16 at 19:16; Stop 10/13/16 at 19:17; Status DC Phenylephrine HCl 1 mg STK-MED ONCE IV ; Start 10/13/16 at 19:16; Stop 10/13/16 at 19:17; Status DC Sevoflurane (Ultane) 30 ml STK-MED ONCE IH ; Start 10/13/16 at 19:28; Stop 10/13 at 19:29; Status DC Dexamethasone Sodium Phosphate (Decadron) 20 mg STK-MED ONCE .ROUTE ; Start at 19:29; Stop 10/13/16 at 19:30; Status DC Albuterol/ Ipratropium (Duoneb) 3 ml 1X ONCE NEB Last administered on 03:45; Start 10/14/16 at 03:45; Stop 10/14/16 at 03:46; Status DC Furosemide 20 mg 20 mg 1X ONCE IVP Last administered on 10/14/16 05:26; Start 10/14/16 at 05:15; Stop 10/14/16 at 05:16; Status DC Vancomycin HCl/ Sodium Chloride (Iv Sodium Chloride 0.9% 250ml) 250 ml @ 250 mls/hr Q12H IV Last administered on 10/15/16 09:05; Start 10/14/16 at 06:00; Stop 10/15/16 at 22:33; Status DC Vancomycin HCl 1 each 1X ONCE MC Last administered on 10/15/16 21:30; Start 10/15/16 at 20:30; Stop 10/15/16 at 20:31; Status DC Furosemide (Lasix) 40 mg 1X ONCE IVP Last administered on 10/14/16 10:35; Start 10/14/16 at 10:30; Stop 10/14/16 at 10:31; Status DC Alteplase, Recombinant (Cathflo) 2 mg 1X ONCE INT CAT Last administered on 05:17; Start 10/15/16 at 05:30; Stop 10/15/16 at 05:31; Status DC Loperamide HCl (Imodium) 2 mg PRN Q4HRS PRN PEG DIARRHEA Last administered on 21:23; Start 10/15/16 at 14:30 Cyanocobalamin (Vitamin B-12) 1,000 mcg QTH IM Last administered on 10/15/16 18:17; Start 10/15/16 at 16:00 Pantoprazole Sodium (Protonix Vial) 40 mg DAILYAC IVP Last administered on 10/17 08:37; Start 10/15/16 at 19:15 Sucralfate 1 gm 1 gm Q6HRS PEG Last administered on 10/17/16 06:00; Start at 19:00 Vancomycin HCl/ Sodium Chloride (Iv Sodium Chloride 0.9% 250ml) 250 ml @ 250 mls/hr Q24H IV Last administered on 10/16/16 08:59; Start 10/16/16 at 09:00 Vancomycin HCl 1 each 1 each 1X ONCE MC ; Start 10/18/16 at 08:30; Stop at 08:31 Piperacillin Sod/ Tazobactam Sod/ Sodium Chloride (Zosyn/Iv Sodium Chloride 0.9 % 50ml) 50 ml @ 100 mls/hr Q6HRS IV Last administered on 10/17/16 06:00; Start 10/16/16 at 12:00 Albuterol/ Ipratropium (Duoneb) 3 ml RTQID NEB Last administered on 10/17/16 08:25; Start 10/16/16 at 08:30 Metoprolol Tartrate (Lopressor) 25 mg BID PO Last administered on 10/17/16 08: 36; Start 10/16/16 at 10:00 Hydralazine HCl (Apresoline) 10 mg PRN Q4HRS PRN IVP ELEVATED BP, SEE COMMENTS Last administered on 10/16/16 10:16; Start 10/16/16 at 10:00 Alteplase, Recombinant 2 mg 2 mg 1X ONCE INT CAT Last administered on 16:10; Start 10/16/16 at 13:45; Stop 10/16/16 at 13:46; Status DC Sodium Chloride (Iv Sodium Chloride 0.45%) 500 ml @ 0 mls/hr 1X ONCE IV Last administered on 3/17/17at 17:58; Start 10/16/16 at 17:15; Stop 10/16/16 at 17:20 ; Status DC Active Scripts Active Reported Isopto Tears (Hypromellose) 15 Ml Drops 15 Ml OP Oxycodone Hcl 10 Mg Tablet 1 Tab PO QID Ocuvite Tablet (Vit A,C & E/Lutein/Minerals) 1 Each Tablet 1 Each PO Dulcolax (Bisacodyl) 10 Mg Supp.rect 10 Mg RC PRN DAILY PRN Milk Of Magnesia (Magnesium Hydroxide) 400 Mg/5 Ml Oral.susp 400 Mg PO Simvastatin 20 Mg Tablet 1 Tab PO QHS Refresh Optive Eye Drops (Carboxymethylcellulos/Glycerin) 15 Ml Drops 1 Drop EACHEYE BID Tamsulosin Hcl 0.4 Mg Cap.er.24h 1 Cap PO DAILY Potassium Chloride Oral Liquid (Potassium Chloride) 20 Meq/15 Ml Liquid 10 Meq PEG DAILY Aspir 81 (Aspirin) 81 Mg Tablet.dr 1 Tab PO DAILY Furosemide 40 Mg Tablet 1 Tab PO DAILY Meloxicam 7.5 Mg Tablet 1 Tab PO DAILY Trazodone Hcl 50 Mg Tablet 1 Tab PO QHS Mucinex (Guaifenesin) 600 Mg Tablet.er 600 Mg PO Vitals/I & O Vital Sign - Last 24 Hours 10/16/16 10/16/16 10/16/16 10/16/16 10:14 10:16 10:49 11:08 Temp 98.4 98.4 Pulse 96 92 96 Resp 24 B/P 165/71 165/71 165/71 Pulse Ox 97 97 O2 Delivery Nasal Cannula Nasal Cannula O2 Flow Rate 3.0 3.0 10/16/16 10/16/16 10/16/16 10/16/16 14:16 16:05 18:09 18:30 Temp 97.3 97.9 98.9 97.3 97.9 98.9 Pulse 72 73 94 Resp 22 24 20 B/P 90/60 159/67 164/55 Pulse Ox 96 95 94 O2 Delivery Room Air Nasal Cannula Nasal Cannula O2 Flow Rate 3.0 3.0 10/16/16 10/16/16 10/16/16 10/16/16 18:44 19:40 19:50 20:00 Temp 98.6 98.1 98.8 98.6 98.1 98.8 Pulse 99 80 93 Resp 20 22 22 B/P 175/75 160/65 160/65 Pulse Ox 93 O2 Delivery Nasal Cannula Nasal Cannula O2 Flow Rate 2.0 3.0 10/16/16 10/16/16 10/16/16 10/16/16 20:33 20:40 21:24 23:20 Temp 98.3 99.0 98.3 99.0 Pulse 82 91 71 Resp 22 B/P 152/69 152/69 168/69 Pulse Ox 97 96 O2 Delivery Nasal Cannula Nasal Cannula O2 Flow Rate 3.0 2.0 10/17/16 10/17/16 10/17/16 10/17/16 03:00 07:56 08:32 08:35 Temp 98.3 97.5 98.3 97.5 Pulse 77 68 68 Resp 20 20 B/P 162/69 178/59 178/59 Pulse Ox 94 97 99 O2 Delivery Nasal Cannula Nasal Cannula Nasal Cannula O2 Flow Rate 2.0 2.0 3.0 10/17/16 08:36 Pulse 76 B/P 178/80 Intake and Output 10/16/16 10/16/16 10/17/16 15:00 23:00 07:00 Intake Total 10 ml 596 ml 50 ml Output Total 2100 ml 850 ml Balance 10 ml -1504 ml -800 ml RODRIGUE MAYNARD MD Oct 17, 2016 10:02
[2016-10-17 10:31] VITALS: BP 165/57
[2016-10-17] MEDS: VANCOMYCIN PER PHARMACY MC PRN (11:32)
[2016-10-17] MEDS: UREA 40% TOPICAL CREAM 28.3GM TUBE. TP SCH (12:01)
--- NOTE | 2016-10-17 12:30 | PDOC ---
PROGRESS NOTES Chief Complaint Chief Complaint LOC SOB ASSESSMENT AND PLAN: 1. hematochezia: resolved. prob related to PEG placement. GI consulted. decreasing clinically. hold ASA, lovenox, mobic for now 2. Anemia: multifactorial, incl acute blood loss/GIB. appropriate improvement in H/H after PRBC x1 3. CHF: diastolic (hx EF 50%), acute on chronic: much improved clinically. PO lasix. nebs, suppl O2. CXR with borderline vasc congestion on 09/16 4. AMS: fluctuating, better today. metabolic encephalopathy likely 2/2 hypoxia, poss sedative meds in rehab; at recent [facility] admit, had hallucination 5. Dementia: mild at baseline. 6. Afib w/ RVR: resolved, back in NSR. on dig 7. Hx CAD with CABG: no acute issues; cont home meds 8. HTN: well controlled 9. HLD: on statin 10. 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 AAA: 4cm, stable 12. Dysphagia: PEG re-placement 10/[address] Hammond. TF started 13. Diarrhea: was started on fibersource for TF, with resultant diarrhea. trial of Isopro. loperamide PRN (Stool was C.diff neg) 14. Protein malnutrition: severe. on PEG feeds 15. L olecranon abscess/gouty tophus: s/p I&D on 10/[address] Calderon. wound care as per surg. on vanco/Zosyn/wilda. cult NGTD (48h) 16. OA: on Mobic, hold w/ GIB 17. BPH: Tinsley in CCU. on proscar 18. Dispo: ok for med floor. OOB with assist Vitals Vitals Vital Signs Date Time Temp Pulse Resp B/P Pulse Ox O2 Delivery O2 Flow Rate FiO2 10/17/16 10:31 97.9 64 20 165/57 98 Nasal Cannula 2.0 97.9 Physical Exam General: Other (opens eyes to verbal input) Heart: Regular rate, Normal S1, Normal S2 Lungs: Clear Abdomen: Soft, No tenderness, Other (peg in mid abd) Extremities: No clubbing, No cyanosis, Other (L olecranon bursa with min erythma, well healing incision) Skin: Other Labs LABS Laboratory Tests Test 10/16/16 14:00 10/17/16 03:45 White Blood Count 12.4x10^3/uL (4.0-11.0) 13.4x10^3/uL (4.0-11.0) Red Blood Count 2.27x10^6/uL (4.30-5.70) 2.61x10^6/uL (4.30-5.70) Hemoglobin 6.8g/dL (13.0-17.5) 7.5g/dL (13.0-17.5) Hematocrit 21.0% (39.0-53.0) 23.5% (39.0-53.0) Mean Corpuscular Volume 93fL (79-100) 90fL (79-100) Mean Corpuscular Hemoglobin 30pg (25-35) 29pg (25-35) Mean Corpuscular Hemoglobin Concent 32g/dL (31-37) 32g/dL (31-37) Red Cell Distribution Width 14.3% (11.5-14.5) 16.5% (11.5-14.5) Platelet Count 316x10^3/uL (140-400) 303x10^3/uL (140-400) Neutrophils (%) (Auto) 74% (31-73) Lymphocytes (%) (Auto) 15% (24-48) Monocytes (%) (Auto) 7% (0-9) Eosinophils (%) (Auto) 4% (0-3) Basophils (%) (Auto) 0% (0-3) Neutrophils # (Auto) 10.0x10^3uL (1.8-7.7) Lymphocytes # (Auto) 2.0x10^3/uL (1.0-4.8) Monocytes # (Auto) 0.9x10^3/uL (0.0-1.1) Eosinophils # (Auto) 0.5x10^3/uL (0.0-0.7) Basophils # (Auto) 0.1x10^3/uL (0.0-0.2) Sodium Level 150mmol/L (136-145) Potassium Level 3.1mmol/L (3.5-5.1) Chloride Level 112mmol/L (98-107) Carbon Dioxide Level 33mmol/L (21-32) Anion Gap 5 (6-14) Blood Urea Nitrogen 36mg/dL (8-26) Creatinine 1.1mg/dL (0.7-1.3) Estimated GFR (Cockcroft-Gault) 65.3 Glucose Level 131mg/dL (70-99) Calcium Level 8.3mg/dL (8.5-10.1) Review of Systems Review of Systems nonverbal IVY PAYTON MD Oct 17, 2016 12:30
--- NOTE | 2016-10-17 12:48 | PDOC ---
G I PROGRESS NOTE Reason for Follow-up Dysphagia/gi bleeding Subjective Tolerating feedings/no further bleeding Physical Exam Lungs decreased BS CV S1 S2 ABD +BS, soft, PEG covered with binder Review of Relevant I have reviewed the following items cassidy (where applicable) has been applied. Labs Laboratory Tests Test 10/15/16 21:50 10/16/16 02:00 10/16/16 10:10 10/16/16 14:00 Vancomycin Level Trough 27.7mcg/mL (10.0-20.0) Vancomycin Last Dose Date 10/15/16 Vancomycin Last Dose Time 0900 White Blood Count 10.9x10^3/uL (4.0-11.0) 11.3x10^3/uL (4.0-11.0) 12.4x10^3/uL (4.0-11.0) Red Blood Count 2.75x10^6/uL (4.30-5.70) 2.34x10^6/uL (4.30-5.70) 2.27x10^6/uL (4.30-5.70) Hemoglobin 8.2g/dL (13.0-17.5) 7.0g/dL (13.0-17.5) 6.8g/dL (13.0-17.5) Hematocrit 25.7% (39.0-53.0) 21.2% (39.0-53.0) 21.0% (39.0-53.0) Mean Corpuscular Volume 94fL (79-100) 91fL (79-100) 93fL (79-100) Mean Corpuscular Hemoglobin 30pg (25-35) 30pg (25-35) 30pg (25-35) Mean Corpuscular Hemoglobin Concent 32g/dL (31-37) 33g/dL (31-37) 32g/dL (31-37) Red Cell Distribution Width 14.5% (11.5-14.5) 14.1% (11.5-14.5) 14.3% (11.5-14.5) Platelet Count 320x10^3/uL (140-400) 310x10^3/uL (140-400) 316x10^3/uL (140-400) Neutrophils (%) (Auto) 67% (31-73) 82% (31-73) Lymphocytes (%) (Auto) 17% (24-48) 10% (24-48) Monocytes (%) (Auto) 7% (0-9) 6% (0-9) Eosinophils (%) (Auto) 8% (0-3) 1% (0-3) Basophils (%) (Auto) 1% (0-3) 1% (0-3) Neutrophils # (Auto) 7.3x10^3uL (1.8-7.7) 9.3x10^3uL (1.8-7.7) Lymphocytes # (Auto) 1.9x10^3/uL (1.0-4.8) 1.1x10^3/uL (1.0-4.8) Monocytes # (Auto) 0.8x10^3/uL (0.0-1.1) 0.7x10^3/uL (0.0-1.1) Eosinophils # (Auto) 0.8x10^3/uL (0.0-0.7) 0.1x10^3/uL (0.0-0.7) Basophils # (Auto) 0.1x10^3/uL (0.0-0.2) 0.1x10^3/uL (0.0-0.2) Prothrombin Time 15.8SEC (11.7-14.0) Prothromb Time International Ratio 1.3 (0.8-1.1) Sodium Level 146mmol/L (136-145) 147mmol/L (136-145) Potassium Level 4.4mmol/L (3.5-5.1) 4.1mmol/L (3.5-5.1) Chloride Level 108mmol/L (98-107) 111mmol/L (98-107) Carbon Dioxide Level 33mmol/L (21-32) 33mmol/L (21-32) Anion Gap 5 (6-14) 3 (6-14) Blood Urea Nitrogen 45mg/dL (8-26) 47mg/dL (8-26) Creatinine 1.2mg/dL (0.7-1.3) 1.1mg/dL (0.7-1.3) Estimated GFR (Cockcroft-Gault) 59.0 65.3 Glucose Level 116mg/dL (70-99) 171mg/dL (70-99) Calcium Level 8.2mg/dL (8.5-10.1) 8.1mg/dL (8.5-10.1) Magnesium Level 2.5mg/dL (1.8-2.4) BUN/Creatinine Ratio 43 (6-20) Total Bilirubin 0.5mg/dL (0.2-1.0) Aspartate Amino Transf (AST/SGOT) 19U/L (15-37) Alanine Aminotransferase (ALT/SGPT) 20U/L (16-63) Alkaline Phosphatase 44U/L (46-116) Total Protein 5.2g/dL (6.4-8.2) Albumin 1.3g/dL (3.4-5.0) Albumin/Globulin Ratio 0.3 (1.0-1.7) Test 10/17/16 03:45 White Blood Count 13.4x10^3/uL (4.0-11.0) Red Blood Count 2.61x10^6/uL (4.30-5.70) Hemoglobin 7.5g/dL (13.0-17.5) Hematocrit 23.5% (39.0-53.0) Mean Corpuscular Volume 90fL (79-100) Mean Corpuscular Hemoglobin 29pg (25-35) Mean Corpuscular Hemoglobin Concent 32g/dL (31-37) Red Cell Distribution Width 16.5% (11.5-14.5) Platelet Count 303x10^3/uL (140-400) Neutrophils (%) (Auto) 74% (31-73) Lymphocytes (%) (Auto) 15% (24-48) Monocytes (%) (Auto) 7% (0-9) Eosinophils (%) (Auto) 4% (0-3) Basophils (%) (Auto) 0% (0-3) Neutrophils # (Auto) 10.0x10^3uL (1.8-7.7) Lymphocytes # (Auto) 2.0x10^3/uL (1.0-4.8) Monocytes # (Auto) 0.9x10^3/uL (0.0-1.1) Eosinophils # (Auto) 0.5x10^3/uL (0.0-0.7) Basophils # (Auto) 0.1x10^3/uL (0.0-0.2) Sodium Level 150mmol/L (136-145) Potassium Level 3.1mmol/L (3.5-5.1) Chloride Level 112mmol/L (98-107) Carbon Dioxide Level 33mmol/L (21-32) Anion Gap 5 (6-14) Blood Urea Nitrogen 36mg/dL (8-26) Creatinine 1.1mg/dL (0.7-1.3) Estimated GFR (Cockcroft-Gault) 65.3 Glucose Level 131mg/dL (70-99) Calcium Level 8.3mg/dL (8.5-10.1) Laboratory Tests Test 10/16/16 14:00 10/17/16 03:45 White Blood Count 12.4x10^3/uL (4.0-11.0) 13.4x10^3/uL (4.0-11.0) Red Blood Count 2.27x10^6/uL (4.30-5.70) 2.61x10^6/uL (4.30-5.70) Hemoglobin 6.8g/dL (13.0-17.5) 7.5g/dL (13.0-17.5) Hematocrit 21.0% (39.0-53.0) 23.5% (39.0-53.0) Mean Corpuscular Volume 93fL (79-100) 90fL (79-100) Mean Corpuscular Hemoglobin 30pg (25-35) 29pg (25-35) Mean Corpuscular Hemoglobin Concent 32g/dL (31-37) 32g/dL (31-37) Red Cell Distribution Width 14.3% (11.5-14.5) 16.5% (11.5-14.5) Platelet Count 316x10^3/uL (140-400) 303x10^3/uL (140-400) Neutrophils (%) (Auto) 74% (31-73) Lymphocytes (%) (Auto) 15% (24-48) Monocytes (%) (Auto) 7% (0-9) Eosinophils (%) (Auto) 4% (0-3) Basophils (%) (Auto) 0% (0-3) Neutrophils # (Auto) 10.0x10^3uL (1.8-7.7) Lymphocytes # (Auto) 2.0x10^3/uL (1.0-4.8) Monocytes # (Auto) 0.9x10^3/uL (0.0-1.1) Eosinophils # (Auto) 0.5x10^3/uL (0.0-0.7) Basophils # (Auto) 0.1x10^3/uL (0.0-0.2) Sodium Level 150mmol/L (136-145) Potassium Level 3.1mmol/L (3.5-5.1) Chloride Level 112mmol/L (98-107) Carbon Dioxide Level 33mmol/L (21-32) Anion Gap 5 (6-14) Blood Urea Nitrogen 36mg/dL (8-26) Creatinine 1.1mg/dL (0.7-1.3) Estimated GFR (Cockcroft-Gault) 65.3 Glucose Level 131mg/dL (70-99) Calcium Level 8.3mg/dL (8.5-10.1) Microbiology 10/10/16 Blood Culture - Final, Complete NO GROWTH AFTER 5 DAYS 10/05/16 Urine Culture - Final, Complete 10/05/16 Urine Culture Result 1 (JABARI) - Final, Complete 10/13/16 Gram Stain - Final, Complete Medications Current Medications Albuterol/ Ipratropium (Duoneb) 3 ml 1X ONCE NEB Last administered on 22:21; Start 10/05/16 at 22:15; Stop 10/05/16 at 22:50; Status DC Ondansetron HCl 4 mg 4 mg PRN Q8HRS PRN IV NAUSEA/VOMITING; Start 10/05/16 at 23 :00; Stop 10/06/16 at 22:59; Status DC Sodium Chloride (Iv Sodium Chloride 0.9% 1000ml Bag) 1,000 ml @ 100 mls/hr Q10H IV Last administered on 10/06/16 18:59; Start 10/05/16 at 22:59; Stop at 22:58; Status DC Albuterol/ Ipratropium 3 ml 3 ml RTQID NEB Last administered on 10/07/16 07:47 ; Start 10/06/16 at 08:00; Stop 10/07/16 at 07:59; Status DC Ceftriaxone Sodium 1 gm/ Sodium Chloride 50 ml @ 100 mls/hr Q24H IV ; Start 10/06/16 at 22:00; Stop 10/06/16 at 22:00; Status DC Levofloxacin/ Dextrose (LEVAQUIN 750mg PREMIX) 150 ml @ 100 mls/hr 1X ONCE IV Last administered on 10/06/16 01:05; Start 10/05/16 at 23:30; Stop 10/06/16 at 00:59; Status DC Vancomycin HCl 1 each 1 each PRN DAILY PRN MC SEE COMMENTS Last administered on 10/07/16 14:14; Start 10/05/16 at 23:00; Stop 10/08/16 at 18:52; Status DC Ceftriaxone Sodium 50 ml @ 100 mls/hr 1X ONCE IV Last administered on 01:05; Start 10/05/16 at 23:30; Stop 10/05/16 at 23:59; Status DC Vancomycin HCl 2 gm/Sodium Chloride 500 ml @ 250 mls/hr 1X ONCE IV Last administered on 10/05/16 23:26; Start 10/06/16 at 00:00; Stop 10/06/16 at 01:59; Status DC Vancomycin HCl/ Sodium Chloride (Iv Sodium Chloride 0.9% 250ml) 250 ml @ 167 mls/hr Q12H IV Last administered on 10/08/16 13:20; Start 10/06/16 at 12:00; Stop 10/08/16 at 18:52; Status DC Vancomycin HCl 1 each 1 each 1X ONCE MC ; Start 10/07/16 at 11:30; Stop 10/07/16 at 11:31; Status DC Piperacillin Sod/ Tazobactam Sod/ Sodium Chloride (Zosyn/Iv Sodium Chloride 0.9 % 50ml) 50 ml @ 100 mls/hr Q6HRS IV Last administered on 10/06/16 11:56; Start 10/06/16 at 11:00; Stop 10/06/16 at 15:24; Status DC Piperacillin Sod/ Tazobactam Sod (Zosyn Per Pharmacy) 1 each PRN DAILY PRN MC SEE COMMENTS; Start 10/06/16 at 10:15; Stop 10/15/16 at 13:06; Status DC Aspirin (Ecotrin) 81 mg DAILY PO ; Start 10/06/16 at 11:30; Stop 10/06/16 at 11:30 ; Status DC Bisacodyl (Dulcolax Supp) 10 mg PRN DAILY PRN RC CONSTIPATION; Start 10/06/16 at 10:15 Furosemide (Lasix) 40 mg DAILY PO Last administered on 10/17/16 08:36; Start 10/06/16 at 11:30 Guaifenesin (Mucinex) 600 mg BID PO ; Start 10/06/16 at 11:30; Stop 10/06/16 at 11 :30; Status DC Potassium Chloride (KCl Oral Soln) 10 meq DAILY PEG Last administered on 08:38; Start 10/06/16 at 11:30 Simvastatin (Zocor) 20 mg QHS PO Last administered on 10/16/16 21:23; Start at 21:00 Tamsulosin HCl (Flomax) 0.4 mg DAILY PO Last administered on 10/07/16 08:58; Start 10/06/16 at 11:30; Stop 10/08/16 at 10:18; Status DC Multivitamins/ Minerals (Ocuvite Lutein) 1 cap DAILY PO Last administered on 08:36; Start 10/06/16 at 11:00 Artificial Tears (Artificial Tears) 1 drop PRN BID PRN OU DRY EYE Last administered on 10/17/16 08:38; Start 10/06/16 at 10:30 Aspirin (Children'S Aspirin) 81 mg DAILYWBKFT PO Last administered on 10/08/16 09:00; Start 10/06/16 at 11:30; Stop 10/08/16 at 11:31; Status DC Guaifenesin (Robitussin) 200 mg QID PO Last administered on 10/17/16 08:37; Start 10/06/16 at 11:30 Furosemide (Lasix) 40 mg 1X ONCE IVP Last administered on 10/06/16 12:01; Start 10/06/16 at 12:00; Stop 10/06/16 at 12:01; Status DC Acetaminophen (Tylenol) 650 mg PRN Q6HRS PRN PEG MILD PAIN / TEMP Last administered on 10/10/16 09:42; Start 10/06/16 at 12:15 Ondansetron HCl (Zofran) 4 mg PRN Q6HRS PRN IV NAUSEA/VOMITING; Start 10/06/16 at 12:15 Enoxaparin Sodium (Lovenox 40mg Syringe) 40 mg Q24H SQ Last administered on 14:43; Start 10/06/16 at 13:00; Stop 10/16/16 at 17:07; Status DC Nystatin 1 alejandro 1 alejandro BID TP Last administered on 10/17/16 09:59; Start at 14:30 Piperacillin Sod/ Tazobactam Sod/ Sodium Chloride (Zosyn/Iv Sodium Chloride 0.9 % 100ml) 100 ml @ 200 mls/hr Q6HRS IV Last administered on 10/16/16 06:30; Start 10/06/16 at 18:00; Stop 10/16/16 at 07:59; Status DC Meloxicam (Mobic) 7.5 mg DAILY PO Last administered on 10/16/16 08:48; Start 10/07/16 at 10:00; Stop 10/16/16 at 17:07; Status DC Acetaminophen/ Hydrocodone Bitart (Lortab 5/325) 1 tab PRN Q4HRS PRN PO MODERATE - SEVERE PAIN Last administered on 10/14/16 14:36; Start 10/07/16 at 10 :45 Furosemide (Lasix) 20 mg 1X ONCE IVP Last administered on 10/07/16 18:24; Start 10/07/16 at 12:00; Stop 10/07/16 at 12:01; Status DC Digoxin 500 mcg 500 mcg 1X ONCE IV Last administered on 10/07/16 22:38; Start 10/07/16 at 22:15; Stop 10/07/16 at 22:17; Status DC Micafungin Sodium/ Dextrose (Mycamine) 100 ml @ 100 mls/hr Q24H IV Last administered on 10/17/16 10:02; Start 10/08/16 at 09:00 Iohexol (Omnipaque 240 Mg/ml) 30 ml 1X ONCE PO Last administered on 10/08/16 11:47; Start 10/08/16 at 09:15; Stop 10/08/16 at 09:18; Status DC Iohexol (Omnipaque 300 Mg/ml) 75 ml 1X ONCE IV Last administered on 10/08/16 11:46; Start 10/08/16 at 09:15; Stop 10/08/16 at 09:18; Status DC Finasteride (Proscar) 5 mg DAILY PO Last administered on 10/17/16 08:37; Start 10/09/16 at 09:00 Methylprednisolone Acetate (Depo-Medrol 40mg Vial) 40 mg 1X ONCE IM ; Start 10/08/16 at 10:45; Stop 10/08/16 at 10:53; Status DC Methylprednisolone Acetate (Depo-Medrol 40mg Vial) 40 mg 1X ONCE IM ; Start 10/08/16 at 10:45; Stop 10/08/16 at 10:53; Status DC Bupivacaine HCl (Sensorcaine-Mpf 0.25%) 10 ml 1X ONCE IJ ; Start 10/08/16 at 10: 45; Stop 10/08/16 at 10:53; Status DC Digoxin (Lanoxin) 125 mcg DAILY PO Last administered on 10/17/16 08:35; Start 10/08/16 at 11:30 Aspirin (Children'S Aspirin) 325 mg DAILYWBKFT PO Last administered on 12:38; Start 10/08/16 at 11:30; Stop 10/08/16 at 13:30; Status DC Lactobacillus Acidophilus (Bacid, Danielle-Bid) 1 tab DAILY PO Last administered on 10/17/16 08:35; Start 10/08/16 at 13:00 Aspirin (Children'S Aspirin) 324 mg DAILYWBKFT PO Last administered on 08:46; Start 10/08/16 at 13:30; Stop 10/16/16 at 17:07; Status DC Oxycodone/ Acetaminophen (Percocet 10/325) 1 tab PRN Q6HRS PRN PO PAIN Last administered on 10/15/16 20:11; Start 10/09/16 at 10:30 Furosemide (Lasix) 20 mg 1X ONCE IVP Last administered on 10/09/16 16:54; Start 10/09/16 at 15:00; Stop 10/09/16 at 15:01; Status DC Urea ([place] Lo 40, X-Viate) 1 alejandro DAILY TP Last administered on 10/17/16 12:01; Start 10/09/16 at 18:00 Nystatin 5 ml 5 ml [id number] Last administered on 10/16/16 21:23; Start 06/18 at 13:00 Potassium Chloride (KCl Premix 10meq) 100 ml @ 100 mls/hr Q1H IV Last administered on 10/10/16 17:00; Start 10/10/16 at 14:00; Stop 10/10/16 at 17:59 ; Status DC Vancomycin HCl 1 each 1 each PRN DAILY PRN MC SEE COMMENTS Last administered on 10/17/16 11:32; Start 10/10/16 at 14:45 Vancomycin HCl 2 gm/Sodium Chloride 500 ml @ 250 mls/hr 1X ONCE IV Last administered on 10/10/16 15:30; Start 10/10/16 at 15:30; Stop 10/10/16 at 17:29 ; Status DC Vancomycin HCl/ Sodium Chloride (Iv Sodium Chloride 0.9% 250ml) 250 ml @ 167 mls/hr Q12H IV Last administered on 10/13/16 17:43; Start 10/11/16 at 05:00; Stop 10/14/16 at 05:57; Status DC Ondansetron HCl (Zofran) 4 mg PRN Q6HRS PRN IV Nausea; Start 10/13/16 at 12:30 ; Stop 10/14/16 at 12:29; Status DC Fentanyl Citrate (Fentanyl 2ml Vial) 25 mcg PRN Q5MIN PRN IV MILD PAIN; Start 10/13/16 at 12:30; Stop 10/14/16 at 12:29; Status DC Fentanyl Citrate (Fentanyl 2ml Vial) 50 mcg PRN Q5MIN PRN IV MODERATE PAIN; Start 10/13/16 at 12:30; Stop 10/14/16 at 12:29; Status DC Morphine Sulfate 1 mg 1 mg PRN Q10MIN PRN IV SEVERE PAIN; Start 10/13/16 at 12: 30; Stop 10/14/16 at 12:29; Status DC Lactated Ringer's (Iv Lactated Ringers) 1,000 ml @ 0 mls/hr Q0M IV ; Start at 12:23; Stop 10/14/16 at 00:22; Status DC Lidocaine HCl 2 ml 1X PRN PRN ID IV START; Start 10/13/16 at 12:30; Stop at 12:29; Status DC Hydromorphone HCl (Dilaudid) 0.5 mg PRN Q10MIN PRN IV SEV PAIN,Second choice; Start 10/13/16 at 12:30; Stop 10/14/16 at 12:29; Status DC Prochlorperazine Edisylate (Compazine) 5 mg PACU PRN PRN IV NAUSEA; Start 10/13 at 12:30; Stop 10/14/16 at 12:29; Status DC Vancomycin HCl 1 each 1 each 1X ONCE MC Last administered on 10/14/16t 05:09; Start 10/14/16 at 04:30; Stop 10/14/16 at 04:31; Status DC Propofol (Diprivan) 20 ml @ As Directed STK-MED ONCE IV ; Start 10/13/16 at 15: 07; Stop 10/13/16 at 15:08; Status DC Lidocaine HCl 5 ml 5 ml STK-MED ONCE .ROUTE ; Start 10/13/16 at 15:07; Stop at 15:08; Status DC Propofol (Diprivan) 20 ml @ As Directed STK-MED ONCE IV ; Start 10/13/16 at 18: 42; Stop 10/13/16 at 18:43; Status DC Lidocaine HCl 100 mg STK-MED ONCE .ROUTE ; Start 10/13/16 at 18:42; Stop at 18:43; Status DC Ondansetron HCl (Zofran) 4 mg STK-MED ONCE .ROUTE ; Start 10/13/16 at 19:16; Stop 10/13/16 at 19:17; Status DC Phenylephrine HCl 1 mg STK-MED ONCE IV ; Start 10/13/16 at 19:16; Stop 10/13/16 at 19:17; Status DC Sevoflurane (Ultane) 30 ml STK-MED ONCE IH ; Start 10/13/16 at 19:28; Stop 10/13 at 19:29; Status DC Dexamethasone Sodium Phosphate (Decadron) 20 mg STK-MED ONCE .ROUTE ; Start at 19:29; Stop 10/13/16 at 19:30; Status DC Albuterol/ Ipratropium (Duoneb) 3 ml 1X ONCE NEB Last administered on 03:45; Start 10/14/16 at 03:45; Stop 10/14/16 at 03:46; Status DC Furosemide 20 mg 20 mg 1X ONCE IVP Last administered on 10/14/16 05:26; Start 10/14/16 at 05:15; Stop 10/14/16 at 05:16; Status DC Vancomycin HCl/ Sodium Chloride (Iv Sodium Chloride 0.9% 250ml) 250 ml @ 250 mls/hr Q12H IV Last administered on 10/15/16 09:05; Start 10/14/16 at 06:00; Stop 10/15/16 at 22:33; Status DC Vancomycin HCl 1 each 1X ONCE MC Last administered on 10/15/16 21:30; Start 10/15/16 at 20:30; Stop 10/15/16 at 20:31; Status DC Furosemide (Lasix) 40 mg 1X ONCE IVP Last administered on 10/14/16 10:35; Start 10/14/16 at 10:30; Stop 10/14/16 at 10:31; Status DC Alteplase, Recombinant (Cathflo) 2 mg 1X ONCE INT CAT Last administered on 05:17; Start 10/15/16 at 05:30; Stop 10/15/16 at 05:31; Status DC Loperamide HCl (Imodium) 2 mg PRN Q4HRS PRN PEG DIARRHEA Last administered on 21:23; Start 10/15/16 at 14:30 Cyanocobalamin (Vitamin B-12) 1,000 mcg QTH IM Last administered on 10/15/16 18:17; Start 10/15/16 at 16:00 Pantoprazole Sodium (Protonix Vial) 40 mg DAILYAC IVP Last administered on 10/17 08:37; Start 10/15/16 at 19:15 Sucralfate 1 gm 1 gm Q6HRS PEG Last administered on 10/17/16 06:00; Start at 19:00 Vancomycin HCl/ Sodium Chloride (Iv Sodium Chloride 0.9% 250ml) 250 ml @ 250 mls/hr Q24H IV Last administered on 10/17/16 09:59; Start 10/16/16 at 09:00 Vancomycin HCl 1 each 1 each 1X ONCE MC ; Start 10/18/16 at 08:30; Stop at 08:31 Piperacillin Sod/ Tazobactam Sod/ Sodium Chloride (Zosyn/Iv Sodium Chloride 0.9 % 50ml) 50 ml @ 100 mls/hr Q6HRS IV Last administered on 10/17/16 06:00; Start 10/16/16 at 12:00 Albuterol/ Ipratropium (Duoneb) 3 ml RTQID NEB Last administered on 10/17/16 08:25; Start 10/16/16 at 08:30 Metoprolol Tartrate (Lopressor) 25 mg BID PO Last administered on 10/17/16 08: 36; Start 10/16/16 at 10:00 Hydralazine HCl (Apresoline) 10 mg PRN Q4HRS PRN IVP ELEVATED BP, SEE COMMENTS Last administered on 10/16/16 10:16; Start 10/16/16 at 10:00 Alteplase, Recombinant 2 mg 2 mg 1X ONCE INT CAT Last administered on 16:10; Start 10/16/16 at 13:45; Stop 10/16/16 at 13:46; Status DC Sodium Chloride (Iv Sodium Chloride 0.45%) 500 ml @ 0 mls/hr 1X ONCE IV Last administered on 10/16/16 17:58; Start 10/16/16 at 17:15; Stop 10/16/16 at 17:20 ; Status DC Potassium Chloride (KCl Oral Soln) 20 meq 1X ONCE PEG ; Start 10/17/16 at 13:00 ; Stop 10/17/16 at 13:01 Active Scripts Active Reported Isopto Tears (Hypromellose) 15 Ml Drops 15 Ml OP Oxycodone Hcl 10 Mg Tablet 1 Tab PO QID Ocuvite Tablet (Vit A,C & E/Lutein/Minerals) 1 Each Tablet 1 Each PO Dulcolax (Bisacodyl) 10 Mg Supp.rect 10 Mg RC PRN DAILY PRN Milk Of Magnesia (Magnesium Hydroxide) 400 Mg/5 Ml Oral.susp 400 Mg PO Simvastatin 20 Mg Tablet 1 Tab PO QHS Refresh Optive Eye Drops (Carboxymethylcellulos/Glycerin) 15 Ml Drops 1 Drop EACHEYE BID Tamsulosin Hcl 0.4 Mg Cap.er.24h 1 Cap PO DAILY Potassium Chloride Oral Liquid (Potassium Chloride) 20 Meq/15 Ml Liquid 10 Meq PEG DAILY Aspir 81 (Aspirin) 81 Mg Tablet.dr 1 Tab PO DAILY Furosemide 40 Mg Tablet 1 Tab PO DAILY Meloxicam 7.5 Mg Tablet 1 Tab PO DAILY Trazodone Hcl 50 Mg Tablet 1 Tab PO QHS Mucinex (Guaifenesin) 600 Mg Tablet.er 600 Mg PO Vitals/I & O Vital Sign - Last 24 Hours 10/16/16 10/16/16 10/16/16 10/16/16 14:16 16:05 18:09 18:30 Temp 97.3 97.9 98.9 97.3 97.9 98.9 Pulse 72 73 94 Resp B/P 90/60 159/67 164/55 Pulse Ox 96 95 94 O2 Delivery Room Air Nasal Cannula Nasal Cannula O2 Flow Rate 3.0 3.0 10/16/16 10/16/16 10/16/16 10/16/16 18:44 19:40 19:50 20:00 Temp 98.6 98.1 98.8 98.6 98.1 98.8 Pulse 99 80 93 Resp B/P 175/75 160/65 160/65 Pulse Ox 93 O2 Delivery Nasal Cannula Nasal Cannula O2 Flow Rate 2.0 3.0 10/16/16 10/16/16 10/16/16 10/16/16 20:33 20:40 21:24 23:20 Temp 98.3 99.0 98.3 99.0 Pulse 82 91 71 Resp B/P 152/69 152/69 168/69 Pulse Ox 97 96 O2 Delivery Nasal Cannula Nasal Cannula O2 Flow Rate 3.0 2.0 10/17/16 10/17/16 10/17/16 10/17/16 03:00 07:56 08:32 08:35 Temp 98.3 97.5 98.3 97.5 Pulse 77 68 68 Resp 20 B/P 162/69 178/59 178/59 Pulse Ox 94 97 99 O2 Delivery Nasal Cannula Nasal Cannula Nasal Cannula O2 Flow Rate 2.0 2.0 3.0 10/17/16 10/17/16 10/17/16 08:36 08:45 10:31 Temp 97.9 97.9 Pulse 76 64 Resp 20 B/P 178/80 165/57 Pulse Ox 98 O2 Delivery Nasal Cannula Nasal Cannula O2 Flow Rate 2.0 2.0 Intake and Output 10/16/16 10/16/16 10/17/16 15:00 23:00 07:00 Intake Total 10 ml 596 ml 50 ml Output Total 2100 ml 850 ml Balance 10 ml -1504 ml -800 ml Problem List Problems Medical Problems: (1) Altered mental status Status: Acute (2) Gouty arthropathy, chronic, with tophi Status: Acute (3) Hospital acquired PNA Status: Acute Assessment 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
[2016-10-17] MEDS: HYDROCODONE/APAP 5/325MG TABLET. PO PRN (12:52)
[2016-10-17] MEDS ORDERED: POTASSIUM CHLORIDE 20 MEQ/15 ML ORAL LIQUID. PEG ONE ×2 (13:00→17:00)
[2016-10-17 14:58] VITALS: BP 151/50
[2016-10-17 19:35] VITALS: BP 154/56
[2016-10-17] MEDS: SIMVASTATIN 20 MG TABLET PO SCH (21:32)
[2016-10-17 23:31] VITALS: BP 174/77
[2016-10-18] VITALS (10 sets, daily range): BP systolic 153–169; BP diastolic 56–83
[2016-10-18] MEDS: SUCRALFATE 1 GM/10 ML ORAL.SUSP. PEG SCH ×4 (00:30→18:00)
[2016-10-18] MEDS: PIPERACILLIN/TAZOBACTAM 3.375 GM in IV NORMAL SALINE 50ML 50 ML IV SCH ×4 (00:30→18:21)
[2016-10-18 06:39] LABS: BASO # 0.1 x10^3/uL (0.0-0.2); BASO % 1 % (0-3); EOS % 15 % (0-3); LYMPH # 1.6 x10^3/uL (1.0-4.8); LYMPH % 12 % (24-48); MEAN CORPUSCULAR HEMOGLOBIN 29 pg (25-35); MEAN CORPUSCULAR HGB CONC 32 g/dL (31-37); MEAN CORPUSCULAR VOLUME 90 fL (79-100); MONO % 7 % (0-9); NEUT % 65 % (31-73); PLATELET COUNT 319 x10^3/uL (140-400); RED BLOOD COUNT 2.34 x10^6/uL (4.30-5.70); RED CELL DISTRIBUTION WIDTH 15.7 % (11.5-14.5); WHITE BLOOD COUNT 13.1 x10^3/uL (4.0-11.0)
[2016-10-18 06:53] LABS: HEMOGLOBIN 6.8 g/dL (13.0-17.5)
[2016-10-18 07:01] LABS: CALCIUM 8.1 mg/dL (8.5-10.1); CREATININE 1.1 mg/dL (0.7-1.3); GFR 65.3; POTASSIUM 3.8 mmol/L (3.5-5.1)
--- NOTE | 2016-10-18 07:46 | PDOC ---
PULMONARY PROGRESS NOTES Subjective off BIPAP more awake, has cough, on 02. no pain Vitals Vital Signs Date Time Temp Pulse Resp B/P Pulse Ox O2 Delivery O2 Flow Rate FiO2 10/18/16 07:30 98.5 70 22 156/62 96 Nasal Cannula 2.0 98.5 Comments discussed w rn, ludmila other sys otherwise neg General: Alert HEENT: Other (nc, at, perrl, nose clear) Lungs: Crackles Cardiovascular: S1, S2 Abdomen: Soft, Non-tender Neuro Exam: Alert Extremities: Other (1+edema) Skin: Warm Labs Laboratory Tests Test 10/16/16 10:10 10/16/16 14:00 10/17/16 03:45 10/17/16 15:10 White Blood Count 11.3x10^3/uL (4.0-11.0) 12.4x10^3/uL (4.0-11.0) 13.4x10^3/uL (4.0-11.0) Red Blood Count 2.34x10^6/uL (4.30-5.70) 2.27x10^6/uL (4.30-5.70) 2.61x10^6/uL (4.30-5.70) Hemoglobin 7.0g/dL (13.0-17.5) 6.8g/dL (13.0-17.5) 7.5g/dL (13.0-17.5) Hematocrit 21.2% (39.0-53.0) 21.0% (39.0-53.0) 23.5% (39.0-53.0) Mean Corpuscular Volume 91fL (79-100) 93fL (79-100) 90fL (79-100) Mean Corpuscular Hemoglobin 30pg (25-35) 30pg (25-35) 29pg (25-35) Mean Corpuscular Hemoglobin Concent 33g/dL (31-37) 32g/dL (31-37) 32g/dL (31-37) Red Cell Distribution Width 14.1% (11.5-14.5) 14.3% (11.5-14.5) 16.5% (11.5-14.5) Platelet Count 310x10^3/uL (140-400) 316x10^3/uL (140-400) 303x10^3/uL (140-400) Neutrophils (%) (Auto) 82% (31-73) 74% (31-73) Lymphocytes (%) (Auto) 10% (24-48) 15% (24-48) Monocytes (%) (Auto) 6% (0-9) 7% (0-9) Eosinophils (%) (Auto) 1% (0-3) 4% (0-3) Basophils (%) (Auto) 1% (0-3) 0% (0-3) Neutrophils # (Auto) 9.3x10^3uL (1.8-7.7) 10.0x10^3uL (1.8-7.7) Lymphocytes # (Auto) 1.1x10^3/uL (1.0-4.8) 2.0x10^3/uL (1.0-4.8) Monocytes # (Auto) 0.7x10^3/uL (0.0-1.1) 0.9x10^3/uL (0.0-1.1) Eosinophils # (Auto) 0.1x10^3/uL (0.0-0.7) 0.5x10^3/uL (0.0-0.7) Basophils # (Auto) 0.1x10^3/uL (0.0-0.2) 0.1x10^3/uL (0.0-0.2) Sodium Level 147mmol/L (136-145) 150mmol/L (136-145) Potassium Level 4.1mmol/L (3.5-5.1) 3.1mmol/L (3.5-5.1) 3.2mmol/L (3.5-5.1) Chloride Level 111mmol/L (98-107) 112mmol/L (98-107) Carbon Dioxide Level 33mmol/L (21-32) 33mmol/L (21-32) Anion Gap 3 (6-14) 5 (6-14) Blood Urea Nitrogen 47mg/dL (8-26) 36mg/dL (8-26) Creatinine 1.1mg/dL (0.7-1.3) 1.1mg/dL (0.7-1.3) Estimated GFR (Cockcroft-Gault) 65.3 65.3 BUN/Creatinine Ratio 43 (6-20) Glucose Level 171mg/dL (70-99) 131mg/dL (70-99) Calcium Level 8.1mg/dL (8.5-10.1) 8.3mg/dL (8.5-10.1) Total Bilirubin 0.5mg/dL (0.2-1.0) Aspartate Amino Transf (AST/SGOT) 19U/L (15-37) Alanine Aminotransferase (ALT/SGPT) 20U/L (16-63) Alkaline Phosphatase 44U/L (46-116) Total Protein 5.2g/dL (6.4-8.2) Albumin 1.3g/dL (3.4-5.0) Albumin/Globulin Ratio 0.3 (1.0-1.7) Test 10/18/16 06:15 White Blood Count 13.1x10^3/uL (4.0-11.0) Red Blood Count 2.34x10^6/uL (4.30-5.70) Hemoglobin 6.8g/dL (13.0-17.5) Hematocrit 21.0% (39.0-53.0) Mean Corpuscular Volume 90fL (79-100) Mean Corpuscular Hemoglobin 29pg (25-35) Mean Corpuscular Hemoglobin Concent 32g/dL (31-37) Red Cell Distribution Width 15.7% (11.5-14.5) Platelet Count 319x10^3/uL (140-400) Neutrophils (%) (Auto) 65% (31-73) Lymphocytes (%) (Auto) 12% (24-48) Monocytes (%) (Auto) 7% (0-9) Eosinophils (%) (Auto) 15% (0-3) Basophils (%) (Auto) 1% (0-3) Neutrophils # (Auto) 8.6x10^3uL (1.8-7.7) Lymphocytes # (Auto) 1.6x10^3/uL (1.0-4.8) Monocytes # (Auto) 0.9x10^3/uL (0.0-1.1) Eosinophils # (Auto) 1.9x10^3/uL (0.0-0.7) Basophils # (Auto) 0.1x10^3/uL (0.0-0.2) Sodium Level 151mmol/L (136-145) Potassium Level 3.8mmol/L (3.5-5.1) Chloride Level 114mmol/L (98-107) Carbon Dioxide Level 32mmol/L (21-32) Anion Gap 5 (6-14) Blood Urea Nitrogen 24mg/dL (8-26) Creatinine 1.1mg/dL (0.7-1.3) Estimated GFR (Cockcroft-Gault) 65.3 Glucose Level 120mg/dL (70-99) Calcium Level 8.1mg/dL (8.5-10.1) Laboratory Tests Test 10/17/16 15:10 10/18/16 06:15 Potassium Level 3.2mmol/L (3.5-5.1) 3.8mmol/L (3.5-5.1) White Blood Count 13.1x10^3/uL (4.0-11.0) Red Blood Count 2.34x10^6/uL (4.30-5.70) Hemoglobin 6.8g/dL (13.0-17.5) Hematocrit 21.0% (39.0-53.0) Mean Corpuscular Volume 90fL (79-100) Mean Corpuscular Hemoglobin 29pg (25-35) Mean Corpuscular Hemoglobin Concent 32g/dL (31-37) Red Cell Distribution Width 15.7% (11.5-14.5) Platelet Count 319x10^3/uL (140-400) Neutrophils (%) (Auto) 65% (31-73) Lymphocytes (%) (Auto) 12% (24-48) Monocytes (%) (Auto) 7% (0-9) Eosinophils (%) (Auto) 15% (0-3) Basophils (%) (Auto) 1% (0-3) Neutrophils # (Auto) 8.6x10^3uL (1.8-7.7) Lymphocytes # (Auto) 1.6x10^3/uL (1.0-4.8) Monocytes # (Auto) 0.9x10^3/uL (0.0-1.1) Eosinophils # (Auto) 1.9x10^3/uL (0.0-0.7) Basophils # (Auto) 0.1x10^3/uL (0.0-0.2) Sodium Level 151mmol/L (136-145) Chloride Level 114mmol/L (98-107) Carbon Dioxide Level 32mmol/L (21-32) Anion Gap 5 (6-14) Blood Urea Nitrogen 24mg/dL (8-26) Creatinine 1.1mg/dL (0.7-1.3) Estimated GFR (Cockcroft-Gault) 65.3 Glucose Level 120mg/dL (70-99) Calcium Level 8.1mg/dL (8.5-10.1) Medications Active Scripts Medications Dose Route/Sig Days Date Category Isopto Tears (Hypromellose) 15 Ml Drops 15 Ml OP 10/06/16 Reported Oxycodone Hcl 10 Mg Tablet 1 Tab PO QID 10/06/16 Reported Ocuvite Tablet (Vit A,C & E/Lutein/Minerals) 1 Each Tablet 1 Each PO 10/06/16 Reported Dulcolax (Bisacodyl) 10 Mg Supp.rect 10 Mg RC PRN DAILY PRN 10/06/16 Reported Milk Of Magnesia (Magnesium Hydroxide) 400 Mg/5 Ml Oral.susp 400 Mg PO 10/06/16 Reported Simvastatin 20 Mg Tablet 1 Tab PO QHS 10/06/16 Reported Refresh Optive Eye Drops (Carboxymethylcellulos/Glycerin) 15 Ml Drops 1 Drop EACHEYE BID 10/06/16 Reported Tamsulosin Hcl 0.4 Mg Cap.er.24h 1 Cap PO DAILY 10/06/16 Reported Potassium Chloride Oral Liquid (Potassium Chloride) 20 Meq/15 Ml Liquid 10 Meq PEG DAILY 10/06/16 Reported Aspir 81 (Aspirin) 81 Mg Tablet.dr 1 Tab PO DAILY 10/06/16 Reported Furosemide 40 Mg Tablet 1 Tab PO DAILY 10/06/16 Reported Meloxicam 7.5 Mg Tablet 1 Tab PO DAILY 10/06/16 Reported Trazodone Hcl 50 Mg Tablet 1 Tab PO QHS 10/06/16 Reported Mucinex (Guaifenesin) 600 Mg Tablet.er 600 Mg PO 10/06/16 Reported Comments cxr reviewed, 1. Cardiomegaly with borderline vascular congestion. 2. Unchanged pleural fluid and atelectasis in the left base. 3. Resolving mild right basilar opacities. Impression . 1. Acute hypoxic respiratory failure, multifactorial on bipap 2. Questionable mild chronic obstructive pulmonary disease 3. Hyponatremia 4. Abnormal chest x-ray with mild cardiomegaly and volume loss, left lower lobe. 5. History of coronary artery disease. 6. History of chronic percutaneous endoscopic gastrostomy tube. He uses enteral nutrition as well as oral nutrition. 7. Leukocytosis,/ fever, improved 8. gib, gi following Plan . PRN BIPAP, SETTING REVIEWED 02 TITRATION CXR REVIEWED BETTER WITH LASIX S/P Peg replacement on 10/13 PROTONIX FOLLOW GI REC BRONCHODILATORS DISCUSSED W LAURIE ORELLANA MD Oct 18, 2016 07:46
[2016-10-18] MEDS: IPRATRPIUM/ALBUTEROL 0.5/2.5MG 3 ML NEBU. NEB SCH ×4 (07:54→19:29)
[2016-10-18] MEDS: LACTOBACILLUS ACIDOPH & BULGAR 1 TABLET. PO SCH (08:39)
[2016-10-18] MEDS: FUROSEMIDE 40 MG TABLET PO SCH (08:39)
[2016-10-18] MEDS: MULTIVITAMIN EYE FORMULA CAPSULE. PO SCH (08:39)
[2016-10-18] MEDS: METOPROLOL TART IMMED RELEASE 25 MG TABLET PO SCH ×2 (08:40→21:20)
[2016-10-18] MEDS: DIGOXIN 125 MCG TABLET PO SCH (08:40)
[2016-10-18] MEDS: POTASSIUM CHLORIDE 20 MEQ/15 ML ORAL LIQUID. PEG SCH (08:41)
[2016-10-18] MEDS: FINASTERIDE 5 MG TABLET PO SCH (08:41)
[2016-10-18] MEDS: LOPERAMIDE 2 MG/10 ML ORAL SOLUTION. PEG PRN ×2 (08:41→08:51)
[2016-10-18] MEDS: HYDROCODONE/APAP 5/325MG TABLET. PO PRN ×2 (08:41→21:23)
[2016-10-18] MEDS: PANTOPRAZOLE IV PUSH 40 MG VIAL. IVP SCH (08:42)
[2016-10-18] MEDS: UREA 40% TOPICAL CREAM 28.3GM TUBE. TP SCH (08:43)
[2016-10-18] MEDS: NYSTATIN TOPICAL POWDER 15GM BOTTLE. TP SCH ×2 (08:43→21:20)
[2016-10-18] MEDS: NYSTATIN 100,000 UNITS/ML 5 ML ORAL.SUSP. SWSW SCH ×4 (08:43→21:19)
[2016-10-18] MEDS: GUAIFENESIN 200 MG/10 ML LIQUID. PO SCH ×4 (08:43→21:19)
--- NOTE | 2016-10-18 10:12 | PDOC ---
Infectious Disease Note Subjective Subjective "hello" Tube feedings No fever Vital Sign Vital Signs Vital Signs Date Time Temp Pulse Resp B/P Pulse Ox O2 Delivery O2 Flow Rate FiO2 10/18/16 08:41 20 Nasal Cannula 10/18/16 08:40 70 156/62 10/18/16 08:35 2.0 10/18/16 07:30 98.5 96 98.5 Physical Exam PHYSICAL EXAM GENERAL: Resting quietly, mittens HEENT: Oral cavity dry LUNGS: Clear HEART: S1S2, no gallop, no murmur ABD: Soft, NT, PEG : Tinsley. EXT: BLE trace edema. No cyanosis. 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 clean Labs Lab Laboratory Tests Test 10/17/16 15:10 10/18/16 06:15 Potassium Level 3.2mmol/L (3.5-5.1) 3.8mmol/L (3.5-5.1) White Blood Count 13.1x10^3/uL (4.0-11.0) Red Blood Count 2.34x10^6/uL (4.30-5.70) Hemoglobin 6.8g/dL (13.0-17.5) Hematocrit 21.0% (39.0-53.0) Mean Corpuscular Volume 90fL (79-100) Mean Corpuscular Hemoglobin 29pg (25-35) Mean Corpuscular Hemoglobin Concent 32g/dL (31-37) Red Cell Distribution Width 15.7% (11.5-14.5) Platelet Count 319x10^3/uL (140-400) Neutrophils (%) (Auto) 65% (31-73) Lymphocytes (%) (Auto) 12% (24-48) Monocytes (%) (Auto) 7% (0-9) Eosinophils (%) (Auto) 15% (0-3) Basophils (%) (Auto) 1% (0-3) Neutrophils # (Auto) 8.6x10^3uL (1.8-7.7) Lymphocytes # (Auto) 1.6x10^3/uL (1.0-4.8) Monocytes # (Auto) 0.9x10^3/uL (0.0-1.1) Eosinophils # (Auto) 1.9x10^3/uL (0.0-0.7) Basophils # (Auto) 0.1x10^3/uL (0.0-0.2) Sodium Level 151mmol/L (136-145) Chloride Level 114mmol/L (98-107) Carbon Dioxide Level 32mmol/L (21-32) Anion Gap 5 (6-14) Blood Urea Nitrogen 24mg/dL (8-26) Creatinine 1.1mg/dL (0.7-1.3) Estimated GFR (Cockcroft-Gault) 65.3 Glucose Level 120mg/dL (70-99) Calcium Level 8.1mg/dL (8.5-10.1) Objective Assessment Leukocytosis. likely reactive GI bleed. s/p PRBCs Left elbow effusion s/p I and D 10/13. + Crystals. Cults neg. Gout S/p PEG replacement 10/13 Encephalopathy Fever - better Pneumonia - Left effusion. Debility Gluteal ulcer/decub Diarrhea. c. diff negative s/p nails debrided x 10 with microbleed to left hallux. 10/09 Inguinal hernia Plan Plan of Care Cont Zosyn (10/06) Monitor labs Supportive care Attending Co-Sign The patient was seen and interviewed as well as examined at the bedside. The chart was reviewed. The case was discussed. Agree with the plan of care. d/w daughter MACKENZIE WASHINGTON EVIN Oct 18, 2016 10:12 ALICE MATTHEW MD Oct 18, 2016 11:31
--- NOTE | 2016-10-18 10:31 | PDOC ---
PROGRESS NOTES Chief Complaint Chief Complaint LOC SOB ASSESSMENT AND PLAN: 1. Anemia: multifactorial, incl acute blood loss/GIB. recurrent H/H drop. transfuse PRBC unit #2 2. Hematochezia: resolved. prob related to PEG placement. GI consulted. decreasing clinically. hold ASA, lovenox, mobic for now 3. Hypernatremia: new. increase free water in PEG 3. CHF: diastolic (hx EF 50%), acute on chronic: much improved clinically. PO lasix. nebs, suppl O2. CXR with borderline vasc congestion on 09/16. rpt CXR 4. AMS: fluctuating. metabolic encephalopathy likely 2/2 hypoxia, poss sedative meds in rehab; at recent [facility] admit, had hallucination 5. Dementia: mild at baseline, ? rapidly progressive - had seen neurologist at rehab in recent past 6. Afib w/ RVR: resolved, back in [facility]. on dig 7. Hx CAD with CABG: no acute issues; cont home meds 8. HTN: well controlled 9. HLD: on statin 10. 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 AAA: 4cm, stable 12. Dysphagia: PEG re-placement 10/[address] Hammond. TF started 13. Diarrhea: was started on fibersource for TF, with resultant diarrhea. trial of Isopro. loperamide PRN (Stool was C.diff neg) 14. Protein malnutrition: severe. on PEG feeds 15. L olecranon abscess/gouty tophus: s/p I&D on 10/[address] Calderon. wound care as per surg. on vanco/Zosyn/wilda. cult NGTD (48h) 16. OA: on Mobic, hold w/ GIB 17. BPH: Tinsley in CCU. on proscar 18. Dispo: ok for med floor. OOB with assist. return to NH - family unrealistic Vitals Vitals Vital Signs Date Time Temp Pulse Resp B/P Pulse Ox O2 Delivery O2 Flow Rate FiO2 10/18/16 10:08 99.2 69 22 162/69 95 Nasal Cannula 2.0 99.2 Physical Exam General: Other (opens eyes to verbal input) Heart: Regular rate, Normal S1, Normal S2 Lungs: Clear Abdomen: Soft, No tenderness, Other (peg in mid abd) Extremities: No clubbing, No cyanosis, Other (L olecranon bursa with min erythma, well healing incision) Skin: Other Labs LABS Laboratory Tests Test 10/17/16 15:10 10/18/16 06:15 Potassium Level 3.2mmol/L (3.5-5.1) 3.8mmol/L (3.5-5.1) White Blood Count 13.1x10^3/uL (4.0-11.0) Red Blood Count 2.34x10^6/uL (4.30-5.70) Hemoglobin 6.8g/dL (13.0-17.5) Hematocrit 21.0% (39.0-53.0) Mean Corpuscular Volume 90fL (79-100) Mean Corpuscular Hemoglobin 29pg (25-35) Mean Corpuscular Hemoglobin Concent 32g/dL (31-37) Red Cell Distribution Width 15.7% (11.5-14.5) Platelet Count 319x10^3/uL (140-400) Neutrophils (%) (Auto) 65% (31-73) Lymphocytes (%) (Auto) 12% (24-48) Monocytes (%) (Auto) 7% (0-9) Eosinophils (%) (Auto) 15% (0-3) Basophils (%) (Auto) 1% (0-3) Neutrophils # (Auto) 8.6x10^3uL (1.8-7.7) Lymphocytes # (Auto) 1.6x10^3/uL (1.0-4.8) Monocytes # (Auto) 0.9x10^3/uL (0.0-1.1) Eosinophils # (Auto) 1.9x10^3/uL (0.0-0.7) Basophils # (Auto) 0.1x10^3/uL (0.0-0.2) Sodium Level 151mmol/L (136-145) Chloride Level 114mmol/L (98-107) Carbon Dioxide Level 32mmol/L (21-32) Anion Gap 5 (6-14) Blood Urea Nitrogen 24mg/dL (8-26) Creatinine 1.1mg/dL (0.7-1.3) Estimated GFR (Cockcroft-Gault) 65.3 Glucose Level 120mg/dL (70-99) Calcium Level 8.1mg/dL (8.5-10.1) Review of Systems Review of Systems wakes to verbal input, but does not stay awake for more than 30sec. nonverbal IVY PAYTON MD Oct 18, 2016 10:31
[2016-10-18] MEDS: ACETAMINOPHEN 650 MG/20.3 ML SOLUTION. PEG PRN (10:47)
--- NOTE | 2016-10-18 11:35 | RAD ---
Indication: Heart failure. Technique: Upright portable chest radiograph was obtained. Comparison is from 3 days earlier. Findings: Mild vascular congestion is suspected, appears improved. There is improved aeration of the left lung base. There is still some residual atelectasis or infiltrate in the left lung base. Median sternotomy wires are noted. Advanced degenerative changes are noted in the right shoulder. Leads overlie the patient. Impression: Decreasing vascular congestion.
--- NOTE | 2016-10-18 14:00 | PDOC ---
G I PROGRESS NOTE Reason for Follow-up Dysphagia/anemia Subjective Without new complaints Physical Exam Lungs decreased BS CV S1 S2 ABd +BS, soft, PEG intact Review of Relevant I have reviewed the following items cassidy (where applicable) has been applied. Labs Laboratory Tests Test 10/16/16 14:00 10/17/16 03:45 10/17/16 15:10 10/18/16 06:15 White Blood Count 12.4x10^3/uL (4.0-11.0) 13.4x10^3/uL (4.0-11.0) 13.1x10^3/uL (4.0-11.0) Red Blood Count 2.27x10^6/uL (4.30-5.70) 2.61x10^6/uL (4.30-5.70) 2.34x10^6/uL (4.30-5.70) Hemoglobin 6.8g/dL (13.0-17.5) 7.5g/dL (13.0-17.5) 6.8g/dL (13.0-17.5) Hematocrit 21.0% (39.0-53.0) 23.5% (39.0-53.0) 21.0% (39.0-53.0) Mean Corpuscular Volume 93fL (79-100) 90fL (79-100) 90fL (79-100) Mean Corpuscular Hemoglobin 30pg (25-35) 29pg (25-35) 29pg (25-35) Mean Corpuscular Hemoglobin Concent 32g/dL (31-37) 32g/dL (31-37) 32g/dL (31-37) Red Cell Distribution Width 14.3% (11.5-14.5) 16.5% (11.5-14.5) 15.7% (11.5-14.5) Platelet Count 316x10^3/uL (140-400) 303x10^3/uL (140-400) 319x10^3/uL (140-400) Neutrophils (%) (Auto) 74% (31-73) 65% (31-73) Lymphocytes (%) (Auto) 15% (24-48) 12% (24-48) Monocytes (%) (Auto) 7% (0-9) 7% (0-9) Eosinophils (%) (Auto) 4% (0-3) 15% (0-3) Basophils (%) (Auto) 0% (0-3) 1% (0-3) Neutrophils # (Auto) 10.0x10^3uL (1.8-7.7) 8.6x10^3uL (1.8-7.7) Lymphocytes # (Auto) 2.0x10^3/uL (1.0-4.8) 1.6x10^3/uL (1.0-4.8) Monocytes # (Auto) 0.9x10^3/uL (0.0-1.1) 0.9x10^3/uL (0.0-1.1) Eosinophils # (Auto) 0.5x10^3/uL (0.0-0.7) 1.9x10^3/uL (0.0-0.7) Basophils # (Auto) 0.1x10^3/uL (0.0-0.2) 0.1x10^3/uL (0.0-0.2) Sodium Level 150mmol/L (136-145) 151mmol/L (136-145) Potassium Level 3.1mmol/L (3.5-5.1) 3.2mmol/L (3.5-5.1) 3.8mmol/L (3.5-5.1) Chloride Level 112mmol/L (98-107) 114mmol/L (98-107) Carbon Dioxide Level 33mmol/L (21-32) 32mmol/L (21-32) Anion Gap 5 (6-14) 5 (6-14) Blood Urea Nitrogen 36mg/dL (8-26) 24mg/dL (8-26) Creatinine 1.1mg/dL (0.7-1.3) 1.1mg/dL (0.7-1.3) Estimated GFR (Cockcroft-Gault) 65.3 65.3 Glucose Level 131mg/dL (70-99) 120mg/dL (70-99) Calcium Level 8.3mg/dL (8.5-10.1) 8.1mg/dL (8.5-10.1) Laboratory Tests Test 10/17/16 15:10 10/18/16 06:15 Potassium Level 3.2mmol/L (3.5-5.1) 3.8mmol/L (3.5-5.1) White Blood Count 13.1x10^3/uL (4.0-11.0) Red Blood Count 2.34x10^6/uL (4.30-5.70) Hemoglobin 6.8g/dL (13.0-17.5) Hematocrit 21.0% (39.0-53.0) Mean Corpuscular Volume 90fL (79-100) Mean Corpuscular Hemoglobin 29pg (25-35) Mean Corpuscular Hemoglobin Concent 32g/dL (31-37) Red Cell Distribution Width 15.7% (11.5-14.5) Platelet Count 319x10^3/uL (140-400) Neutrophils (%) (Auto) 65% (31-73) Lymphocytes (%) (Auto) 12% (24-48) Monocytes (%) (Auto) 7% (0-9) Eosinophils (%) (Auto) 15% (0-3) Basophils (%) (Auto) 1% (0-3) Neutrophils # (Auto) 8.6x10^3uL (1.8-7.7) Lymphocytes # (Auto) 1.6x10^3/uL (1.0-4.8) Monocytes # (Auto) 0.9x10^3/uL (0.0-1.1) Eosinophils # (Auto) 1.9x10^3/uL (0.0-0.7) Basophils # (Auto) 0.1x10^3/uL (0.0-0.2) Sodium Level 151mmol/L (136-145) Chloride Level 114mmol/L (98-107) Carbon Dioxide Level 32mmol/L (21-32) Anion Gap 5 (6-14) Blood Urea Nitrogen 24mg/dL (8-26) Creatinine 1.1mg/dL (0.7-1.3) Estimated GFR (Cockcroft-Gault) 65.3 Glucose Level 120mg/dL (70-99) Calcium Level 8.1mg/dL (8.5-10.1) Microbiology 10/10/16 Blood Culture - Final, Complete NO GROWTH AFTER 5 DAYS 10/05/16 Urine Culture - Final, Complete 10/05/16 Urine Culture Result 1 (JABARI) - Final, Complete 10/13/16 AFB Specimen Processing Tissue - Final, Resulted 10/13/16 Acid Fast Bacilli Culture, Resulted Pending 10/13/16 Gram Stain - Final, Resulted 10/13/16 Fungal Culture, Resulted Pending 10/13/16 Fungal Culture Result 1, Resulted Pending Medications Current Medications Albuterol/ Ipratropium (Duoneb) 3 ml 1X ONCE NEB Last administered on 22:21; Start 10/05/16 at 22:15; Stop 10/05/16 at 22:50; Status DC Ondansetron HCl 4 mg 4 mg PRN Q8HRS PRN IV NAUSEA/VOMITING; Start 10/05/16 at 23 :00; Stop 10/06/16 at 22:59; Status DC Sodium Chloride (Iv Sodium Chloride 0.9% 1000ml Bag) 1,000 ml @ 100 mls/hr Q10H IV Last administered on 10/06/16 18:59; Start 10/05/16 at 22:59; Stop at 22:58; Status DC Albuterol/ Ipratropium 3 ml 3 ml RTQID NEB Last administered on 10/07/16 07:47 ; Start 10/06/16 at 08:00; Stop 10/07/16 at 07:59; Status DC Ceftriaxone Sodium 1 gm/ Sodium Chloride 50 ml @ 100 mls/hr Q24H IV ; Start 10/06/16 at 22:00; Stop 10/06/16 at 22:00; Status DC Levofloxacin/ Dextrose (LEVAQUIN 750mg PREMIX) 150 ml @ 100 mls/hr 1X ONCE IV Last administered on 10/06/16 01:05; Start 10/05/16 at 23:30; Stop 10/06/16 at 00:59; Status DC Vancomycin HCl 1 each 1 each PRN DAILY PRN MC SEE COMMENTS Last administered on 10/07/16 14:14; Start 10/05/16 at 23:00; Stop 10/08/16 at 18:52; Status DC Ceftriaxone Sodium 50 ml @ 100 mls/hr 1X ONCE IV Last administered on 01:05; Start 10/05/16 at 23:30; Stop 10/05/16 at 23:59; Status DC Vancomycin HCl 2 gm/Sodium Chloride 500 ml @ 250 mls/hr 1X ONCE IV Last administered on 10/05/16 23:26; Start 10/06/16 at 00:00; Stop 10/06/16 at 01:59; Status DC Vancomycin HCl/ Sodium Chloride (Iv Sodium Chloride 0.9% 250ml) 250 ml @ 167 mls/hr Q12H IV Last administered on 10/08/16 13:20; Start 10/06/16 at 12:00; Stop 10/08/16 at 18:52; Status DC Vancomycin HCl 1 each 1 each 1X ONCE MC ; Start 10/07/16 at 11:30; Stop 10/07/16 at 11:31; Status DC Piperacillin Sod/ Tazobactam Sod/ Sodium Chloride (Zosyn/Iv Sodium Chloride 0.9 % 50ml) 50 ml @ 100 mls/hr Q6HRS IV Last administered on 10/06/16 11:56; Start 10/06/16 at 11:00; Stop 10/06/16 at 15:24; Status DC Piperacillin Sod/ Tazobactam Sod (Zosyn Per Pharmacy) 1 each PRN DAILY PRN MC SEE COMMENTS; Start 10/06/16 at 10:15; Stop 10/15/16 at 13:06; Status DC Aspirin (Ecotrin) 81 mg DAILY PO ; Start 10/06/16 at 11:30; Stop 10/06/16 at 11:30 ; Status DC Bisacodyl (Dulcolax Supp) 10 mg PRN DAILY PRN RC CONSTIPATION; Start 10/06/16 at 10:15 Furosemide (Lasix) 40 mg DAILY PO Last administered on 10/18/16 08:39; Start 10/06/16 at 11:30 Guaifenesin (Mucinex) 600 mg BID PO ; Start 10/06/16 at 11:30; Stop 10/06/16 at 11 :30; Status DC Potassium Chloride (KCl Oral Soln) 10 meq DAILY PEG Last administered on 08:41; Start 10/06/16 at 11:30 Simvastatin (Zocor) 20 mg QHS PO Last administered on 10/17/16 21:32; Start at 21:00 Tamsulosin HCl (Flomax) 0.4 mg DAILY PO Last administered on 10/07/16 08:58; Start 10/06/16 at 11:30; Stop 10/08/16 at 10:18; Status DC Multivitamins/ Minerals (Ocuvite Lutein) 1 cap DAILY PO Last administered on 08:39; Start 10/06/16 at 11:00 Artificial Tears (Artificial Tears) 1 drop PRN BID PRN OU DRY EYE Last administered on 10/17/16 08:38; Start 10/06/16 at 10:30 Aspirin (Children'S Aspirin) 81 mg DAILYWBKFT PO Last administered on 10/08/16 09:00; Start 10/06/16 at 11:30; Stop 10/08/16 at 11:31; Status DC Guaifenesin (Robitussin) 200 mg QID PO Last administered on 10/17/16 21:31; Start 10/06/16 at 11:30 Furosemide (Lasix) 40 mg 1X ONCE IVP Last administered on 10/06/16 12:01; Start 10/06/16 at 12:00; Stop 10/06/16 at 12:01; Status DC Acetaminophen (Tylenol) 650 mg PRN Q6HRS PRN PEG MILD PAIN / TEMP Last administered on 10/18/16 10:47; Start 10/06/16 at 12:15 Ondansetron HCl (Zofran) 4 mg PRN Q6HRS PRN IV NAUSEA/VOMITING; Start 10/06/16 at 12:15 Enoxaparin Sodium (Lovenox 40mg Syringe) 40 mg Q24H SQ Last administered on 14:43; Start 10/06/16 at 13:00; Stop 10/16/16 at 17:07; Status DC Nystatin 1 alejandro 1 alejandro BID TP Last administered on 10/18/16 08:43; Start at 14:30 Piperacillin Sod/ Tazobactam Sod/ Sodium Chloride (Zosyn/Iv Sodium Chloride 0.9 % 100ml) 100 ml @ 200 mls/hr Q6HRS IV Last administered on 10/16/16 06:30; Start 10/06/16 at 18:00; Stop 10/16/16 at 07:59; Status DC Meloxicam (Mobic) 7.5 mg DAILY PO Last administered on 10/16/16 08:48; Start 10/07/16 at 10:00; Stop 10/16/16 at 17:07; Status DC Acetaminophen/ Hydrocodone Bitart (Lortab 5/325) 1 tab PRN Q4HRS PRN PO MODERATE - SEVERE PAIN Last administered on 10/18/16 08:41; Start 10/07/16 at 10 :45 Furosemide (Lasix) 20 mg 1X ONCE IVP Last administered on 10/07/16 18:24; Start 10/07/16 at 12:00; Stop 10/07/16 at 12:01; Status DC Digoxin 500 mcg 500 mcg 1X ONCE IV Last administered on 10/07/16 22:38; Start 10/07/16 at 22:15; Stop 10/07/16 at 22:17; Status DC Micafungin Sodium/ Dextrose (Mycamine) 100 ml @ 100 mls/hr Q24H IV Last administered on 10/17/16 10:02; Start 10/08/16 at 09:00; Stop 10/17/16 at 13:22 ; Status DC Iohexol (Omnipaque 240 Mg/ml) 30 ml 1X ONCE PO Last administered on 10/08/16 11:47; Start 10/08/16 at 09:15; Stop 10/08/16 at 09:18; Status DC Iohexol (Omnipaque 300 Mg/ml) 75 ml 1X ONCE IV Last administered on 10/08/16 11:46; Start 10/08/16 at 09:15; Stop 10/08/16 at 09:18; Status DC Finasteride (Proscar) 5 mg DAILY PO Last administered on 10/18/16 08:41; Start 10/09/16 at 09:00 Methylprednisolone Acetate (Depo-Medrol 40mg Vial) 40 mg 1X ONCE IM ; Start 10/08/16 at 10:45; Stop 10/08/16 at 10:53; Status DC Methylprednisolone Acetate (Depo-Medrol 40mg Vial) 40 mg 1X ONCE IM ; Start 10/08/16 at 10:45; Stop 10/08/16 at 10:53; Status DC Bupivacaine HCl (Sensorcaine-Mpf 0.25%) 10 ml 1X ONCE IJ ; Start 10/08/16 at 10: 45; Stop 10/08/16 at 10:53; Status DC Digoxin (Lanoxin) 125 mcg DAILY PO Last administered on 10/18/16 08:40; Start 10/08/16 at 11:30 Aspirin (Children'S Aspirin) 325 mg DAILYWBKFT PO Last administered on 12:38; Start 10/08/16 at 11:30; Stop 10/08/16 at 13:30; Status DC Lactobacillus Acidophilus (Bacid, Danielle-Bid) 1 tab DAILY PO Last administered on 10/18/16 08:39; Start 10/08/16 at 13:00 Aspirin (Children'S Aspirin) 324 mg DAILYWBKFT PO Last administered on 08:46; Start 10/08/16 at 13:30; Stop 10/16/16 at 17:07; Status DC Oxycodone/ Acetaminophen (Percocet 10/325) 1 tab PRN Q6HRS PRN PO PAIN Last administered on 10/15/16 20:11; Start 10/09/16 at 10:30 Furosemide (Lasix) 20 mg 1X ONCE IVP Last administered on 10/09/16 16:54; Start 10/09/16 at 15:00; Stop 10/09/16 at 15:01; Status DC Urea (Ritu Lo 40, X-Viate) 1 alejandro DAILY TP Last administered on 10/18/16 08:43; Start 10/09/16 at 18:00 Nystatin 5 ml 5 ml [id number] Last administered on 10/17/16 21:31; Start 06/18 at 13:00 Potassium Chloride (KCl Premix 10meq) 100 ml @ 100 mls/hr Q1H IV Last administered on 10/10/16 17:00; Start 10/10/16 at 14:00; Stop 10/10/16 at 17:59 ; Status DC Vancomycin HCl 1 each 1 each PRN DAILY PRN MC SEE COMMENTS Last administered on 10/17/16 11:32; Start 10/10/16 at 14:45; Stop 10/17/16 at 13:29; Status DC Vancomycin HCl 2 gm/Sodium Chloride 500 ml @ 250 mls/hr 1X ONCE IV Last administered on 10/10/16t 15:30; Start 10/10/16 at 15:30; Stop 10/10/16 at 17:29 ; Status DC Vancomycin HCl/ Sodium Chloride (Iv Sodium Chloride 0.9% 250ml) 250 ml @ 167 mls/hr Q12H IV Last administered on 10/13/16t 17:43; Start 10/11/16 at 05:00; Stop 10/14/16 at 05:57; Status DC Ondansetron HCl (Zofran) 4 mg PRN Q6HRS PRN IV Nausea; Start 10/13/16 at 12:30 ; Stop 10/14/16 at 12:29; Status DC Fentanyl Citrate (Fentanyl 2ml Vial) 25 mcg PRN Q5MIN PRN IV MILD PAIN; Start 10/13/16 at 12:30; Stop 10/14/16 at 12:29; Status DC Fentanyl Citrate (Fentanyl 2ml Vial) 50 mcg PRN Q5MIN PRN IV MODERATE PAIN; Start 10/13/16 at 12:30; Stop 10/14/16 at 12:29; Status DC Morphine Sulfate 1 mg 1 mg PRN Q10MIN PRN IV SEVERE PAIN; Start 10/13/16 at 12: 30; Stop 10/14/16 at 12:29; Status DC Lactated Ringer's (Iv Lactated Ringers) 1,000 ml @ 0 mls/hr Q0M IV ; Start at 12:23; Stop 10/14/16 at 00:22; Status DC Lidocaine HCl 2 ml 1X PRN PRN ID IV START; Start 10/13/16 at 12:30; Stop at 12:29; Status DC Hydromorphone HCl (Dilaudid) 0.5 mg PRN Q10MIN PRN IV SEV PAIN,Second choice; Start 10/13/16 at 12:30; Stop 10/14/16 at 12:29; Status DC Prochlorperazine Edisylate (Compazine) 5 mg PACU PRN PRN IV NAUSEA; Start 10/13 at 12:30; Stop 10/14/16 at 12:29; Status DC Vancomycin HCl 1 each 1 each 1X ONCE MC Last administered on 10/14/16 05:09; Start 10/14/16 at 04:30; Stop 10/14/16 at 04:31; Status DC Propofol (Diprivan) 20 ml @ As Directed STK-MED ONCE IV ; Start 10/13/16 at 15: 07; Stop 10/13/16 at 15:08; Status DC Lidocaine HCl 5 ml 5 ml STK-MED ONCE .ROUTE ; Start 10/13/16 at 15:07; Stop at 15:08; Status DC Propofol (Diprivan) 20 ml @ As Directed STK-MED ONCE IV ; Start 10/13/16 at 18: 42; Stop 10/13/16 at 18:43; Status DC Lidocaine HCl 100 mg STK-MED ONCE .ROUTE ; Start 10/13/16 at 18:42; Stop at 18:43; Status DC Ondansetron HCl (Zofran) 4 mg STK-MED ONCE .ROUTE ; Start 10/13/16 at 19:16; Stop 10/13/16 at 19:17; Status DC Phenylephrine HCl 1 mg STK-MED ONCE IV ; Start 10/13/16 at 19:16; Stop 10/13/16 at 19:17; Status DC Sevoflurane (Ultane) 30 ml STK-MED ONCE IH ; Start 10/13/16 at 19:28; Stop 10/13 at 19:29; Status DC Dexamethasone Sodium Phosphate (Decadron) 20 mg STK-MED ONCE .ROUTE ; Start at 19:29; Stop 10/13/16 at 19:30; Status DC Albuterol/ Ipratropium (Duoneb) 3 ml 1X ONCE NEB Last administered on 03:45; Start 10/14/16 at 03:45; Stop 10/14/16 at 03:46; Status DC Furosemide 20 mg 20 mg 1X ONCE IVP Last administered on 10/14/16 05:26; Start 10/14/16 at 05:15; Stop 10/14/16 at 05:16; Status DC Vancomycin HCl/ Sodium Chloride (Iv Sodium Chloride 0.9% 250ml) 250 ml @ 250 mls/hr Q12H IV Last administered on 10/15/16 09:05; Start 10/14/16 at 06:00; Stop 10/15/16 at 22:33; Status DC Vancomycin HCl 1 each 1X ONCE MC Last administered on 10/15/16 21:30; Start 10/15/16 at 20:30; Stop 10/15/16 at 20:31; Status DC Furosemide (Lasix) 40 mg 1X ONCE IVP Last administered on 10/14/16 10:35; Start 10/14/16 at 10:30; Stop 10/14/16 at 10:31; Status DC Alteplase, Recombinant (Cathflo) 2 mg 1X ONCE INT CAT Last administered on 05:17; Start 10/15/16 at 05:30; Stop 10/15/16 at 05:31; Status DC Loperamide HCl (Imodium) 2 mg PRN Q4HRS PRN PEG DIARRHEA Last administered on 08:51; Start 10/15/16 at 14:30 Cyanocobalamin (Vitamin B-12) 1,000 mcg QTH IM Last administered on 10/15/16 18:17; Start 10/15/16 at 16:00 Pantoprazole Sodium (Protonix Vial) 40 mg DAILYAC IVP Last administered on 10/18 08:42; Start 10/15/16 at 19:15 Sucralfate 1 gm 1 gm Q6HRS PEG Last administered on 10/18/16 11:38; Start at 19:00 Vancomycin HCl/ Sodium Chloride (Iv Sodium Chloride 0.9% 250ml) 250 ml @ 250 mls/hr Q24H IV Last administered on 10/17/16 09:59; Start 10/16/16 at 09:00; Stop 10/17/16 at 13:22; Status DC Vancomycin HCl 1 each 1 each 1X ONCE MC ; Start 10/18/16 at 08:30; Stop at 08:31; Status Cancel Piperacillin Sod/ Tazobactam Sod/ Sodium Chloride (Zosyn/Iv Sodium Chloride 0.9 % 50ml) 50 ml @ 100 mls/hr Q6HRS IV Last administered on 10/18/16 13:15; Start 10/16/16 at 12:00 Albuterol/ Ipratropium (Duoneb) 3 ml RTQID NEB Last administered on 10/18/16 11:47; Start 10/16/16 at 08:30 Metoprolol Tartrate (Lopressor) 25 mg BID PO Last administered on 10/18/16 08: 40; Start 10/16/16 at 10:00 Hydralazine HCl (Apresoline) 10 mg PRN Q4HRS PRN IVP ELEVATED BP, SEE COMMENTS Last administered on 10/16/16 10:16; Start 10/16/16 at 10:00 Alteplase, Recombinant 2 mg 2 mg 1X ONCE INT CAT Last administered on 16:10; Start 10/16/16 at 13:45; Stop 10/16/16 at 13:46; Status DC Sodium Chloride (Iv Sodium Chloride 0.45%) 500 ml @ 0 mls/hr 1X ONCE IV Last administered on 10/16/16 17:58; Start 10/16/16 at 17:15; Stop 10/16/16 at 17:20 ; Status DC Potassium Chloride (KCl Oral Soln) 20 meq 1X ONCE PEG Last administered on 12:52; Start 10/17/16 at 13:00; Stop 10/17/16 at 13:01; Status DC Potassium Chloride (KCl Oral Soln) 20 meq 1X ONCE PEG Last administered on 17:18; Start 10/17/16 at 17:00; Stop 10/17/16 at 17:01; Status DC Active Scripts Active Reported Isopto Tears (Hypromellose) 15 Ml Drops 15 Ml OP Oxycodone Hcl 10 Mg Tablet 1 Tab PO QID Ocuvite Tablet (Vit A,C & E/Lutein/Minerals) 1 Each Tablet 1 Each PO Dulcolax (Bisacodyl) 10 Mg Supp.rect 10 Mg RC PRN DAILY PRN Milk Of Magnesia (Magnesium Hydroxide) 400 Mg/5 Ml Oral.susp 400 Mg PO Simvastatin 20 Mg Tablet 1 Tab PO QHS Refresh Optive Eye Drops (Carboxymethylcellulos/Glycerin) 15 Ml Drops 1 Drop EACHEYE BID Tamsulosin Hcl 0.4 Mg Cap.er.24h 1 Cap PO DAILY Potassium Chloride Oral Liquid (Potassium Chloride) 20 Meq/15 Ml Liquid 10 Meq PEG DAILY Aspir 81 (Aspirin) 81 Mg Tablet.dr 1 Tab PO DAILY Furosemide 40 Mg Tablet 1 Tab PO DAILY Meloxicam 7.5 Mg Tablet 1 Tab PO DAILY Trazodone Hcl 50 Mg Tablet 1 Tab PO QHS Mucinex (Guaifenesin) 600 Mg Tablet.er 600 Mg PO Vitals/I & O Vital Sign - Last 24 Hours 10/17/16 10/17/16 10/17/16 10/17/16 14:57 14:58 16:33 19:35 Temp 98.0 97.7 98.0 97.7 Pulse 86 61 Resp B/P 151/50 154/56 Pulse Ox 99 95 95 O2 Delivery Nasal Cannula Nasal Cannula Nasal Cannula O2 Flow Rate 2.0 2.0 2.0 10/17/16 10/17/16 10/17/16 10/17/16 19:40 20:47 21:31 23:31 Temp 98.1 98.1 Pulse 78 68 Resp B/P 154/56 174/77 Pulse Ox 97 97 O2 Delivery Nasal Cannula Nasal Cannula Nasal Cannula O2 Flow Rate 2.0 2.0 2.0 10/18/16 10/18/16 10/18/16 10/18/16 03:50 07:30 07:55 08:35 Temp 98.7 98.5 98.7 98.5 Pulse 83 70 Resp B/P 155/62 156/62 Pulse Ox 96 96 O2 Delivery Nasal Cannula Nasal Cannula Nasal Cannula Nasal Cannula O2 Flow Rate 2.0 2.0 2.0 2.0 10/18/16 10/18/16 10/18/16 10/18/16 08:35 08:40 08:40 08:41 Pulse 70 70 Resp 20 B/P 156/62 156/62 O2 Delivery Nasal Cannula O2 Flow Rate 2.0 10/18/16 10/18/16 10/18/16 10/18/16 10:08 10:26 10:44 11:44 Temp 99.2 99.2 99.0 99.0 99.2 99.2 99.0 99.0 Pulse 69 71 74 64 Resp 22 22 20 20 B/P 162/69 162/69 169/64 161/66 Pulse Ox 95 O2 Delivery Nasal Cannula O2 Flow Rate 2.0 10/18/16 10/18/16 11:47 12:44 Temp 98.3 98.3 Pulse 60 Resp 20 B/P 168/83 O2 Delivery Nasal Cannula O2 Flow Rate 2.0 Intake and Output 10/17/16 10/17/16 10/18/16 15:00 23:00 07:00 Intake Total 200 ml 70 ml 550 ml Output Total 1610 ml 0 ml 191 ml Balance -1410 ml 70 ml 359 ml Problem List Problems Medical Problems: (1) Altered mental status Status: Acute (2) Gouty arthropathy, chronic, with tophi Status: Acute (3) Hospital acquired PNA Status: Acute Assessment Oropharyngeal dysphagia- S/p PEG replacement via original tract, tolerating feedings Anemia- s/p transfusions, Hg drifting slowly down, no overt bleeding presently, cpm, may need colonoscopy if bleeding continues/resumes MICHELLE REDDY MD Oct 18, 2016 14:00
[2016-10-18 15:14] LABS: HEMOGLOBIN 7.8 g/dL (13.0-17.5)
[2016-10-18] MEDS: SIMVASTATIN 20 MG TABLET PO SCH (21:19)
[2016-10-19] MEDS: PIPERACILLIN/TAZOBACTAM 3.375 GM in IV NORMAL SALINE 50ML 50 ML IV SCH ×2 (00:30→05:45)
[2016-10-19] MEDS: SUCRALFATE 1 GM/10 ML ORAL.SUSP. PEG SCH ×3 (00:30→09:17)
[2016-10-19 03:40] VITALS: BP 156/60
[2016-10-19 05:24] LABS: BASO % 0 % (0-3); EOS % 17 % (0-3); HEMATOCRIT 23.9 % (39.0-53.0); HEMOGLOBIN 7.7 g/dL (13.0-17.5); LYMPH # 1.4 x10^3/uL (1.0-4.8); LYMPH % 11 % (24-48); MEAN CORPUSCULAR HEMOGLOBIN 29 pg (25-35); MEAN CORPUSCULAR HGB CONC 32 g/dL (31-37); MEAN CORPUSCULAR VOLUME 91 fL (79-100); MONO % 7 % (0-9); NEUT % 65 % (31-73); PLATELET COUNT 300 x10^3/uL (140-400); RED BLOOD COUNT 2.62 x10^6/uL (4.30-5.70); WHITE BLOOD COUNT 12.9 x10^3/uL (4.0-11.0)
[2016-10-19 05:27] LABS: GFR 72.8; POTASSIUM 3.9 mmol/L (3.5-5.1)
[2016-10-19 07:37] VITALS: BP 167/64
[2016-10-19 08:13] LABS: % EOS 18 % (0-5); ANISOCYTOSIS SLIGHT; HYPOCHROMIA PRESENT; PLT ESTIMATE ADEQUATE (ADEQUATE)
[2016-10-19] MEDS: IPRATRPIUM/ALBUTEROL 0.5/2.5MG 3 ML NEBU. NEB SCH ×3 (08:27→15:42)
--- NOTE | 2016-10-19 08:52 | PDOC ---
Infectious Disease Note Subjective Subjective awake, not much verbalization ROS ROS unable to do Vital Sign Vital Signs Vital Signs Date Time Temp Pulse Resp B/P Pulse Ox O2 Delivery O2 Flow Rate FiO2 10/19/16 08:27 Nasal Cannula 2.0 10/19/16 07:37 98.0 58 22 167/64 93 98.0 Physical Exam PHYSICAL EXAM GENERAL: NAD, Alert HEENT: PERRL, OC/OP NECK: Supple, no JVD, no LN LUNGS: Clear HEART: S1S2, no gallop, no murmur ABD: Soft, NT, no organomegaly, no rebound EXT: No edema, no cyanosis BLOOD COORDINATOR: Alert, moves ext , painful mov SKIN: No rash IV: ok Labs Lab Laboratory Tests Test 10/18/16 15:05 10/19/16 04:50 Hemoglobin 7.8g/dL (13.0-17.5) 7.7g/dL (13.0-17.5) Hematocrit 24.0% (39.0-53.0) 23.9% (39.0-53.0) White Blood Count 12.9x10^3/uL (4.0-11.0) Red Blood Count 2.62x10^6/uL (4.30-5.70) Mean Corpuscular Volume 91fL (79-100) Mean Corpuscular Hemoglobin 29pg (25-35) Mean Corpuscular Hemoglobin Concent 32g/dL (31-37) Red Cell Distribution Width 16.0% (11.5-14.5) Platelet Count 300x10^3/uL (140-400) Neutrophils (%) (Auto) 65% (31-73) Lymphocytes (%) (Auto) 11% (24-48) Monocytes (%) (Auto) 7% (0-9) Eosinophils (%) (Auto) 17% (0-3) Basophils (%) (Auto) 0% (0-3) Neutrophils # (Auto) 8.4x10^3uL (1.8-7.7) Lymphocytes # (Auto) 1.4x10^3/uL (1.0-4.8) Monocytes # (Auto) 0.9x10^3/uL (0.0-1.1) Eosinophils # (Auto) 2.2x10^3/uL (0.0-0.7) Basophils # (Auto) 0.0x10^3/uL (0.0-0.2) Segmented Neutrophils % 52% (35-66) Band Neutrophils % 8% (0-9) Lymphocytes % 9% (24-48) Atypical Lymphocytes % (Manual) 1% (0-0) Monocytes % 10% (0-10) Eosinophils % 18% (0-5) Metamyelocytes % 1% (0-0) Myelocytes % 1% (0-0) Platelet Estimate Adequate (ADEQUATE) Hypochromasia Present Anisocytosis Slight Sodium Level 148mmol/L (136-145) Potassium Level 3.9mmol/L (3.5-5.1) Chloride Level 110mmol/L (98-107) Carbon Dioxide Level 34mmol/L (21-32) Anion Gap 4 (6-14) Blood Urea Nitrogen 23mg/dL (8-26) Creatinine 1.0mg/dL (0.7-1.3) Estimated GFR (Cockcroft-Gault) 72.8 Glucose Level 118mg/dL (70-99) Calcium Level 8.0mg/dL (8.5-10.1) Micro culture neg Objective Assessment Leukocytosis. likely reactive GI bleed. s/p PRBCs Left elbow effusion s/p I and D 10/13. + Crystals. Cults neg. Gout S/p PEG replacement 10/13 Encephalopathy Fever - better Pneumonia - Left effusion. Debility Gluteal ulcer/decub Diarrhea. c. diff negative s/p nails debrided x 10 with microbleed to left hallux. 10/09 Inguinal hernia Plan Plan of Care d/c Zosyn (10/06) Monitor labs Supportive care d/c to ALICE Rubio MD Oct 19, 2016 08:52
[2016-10-19] MEDS: GUAIFENESIN 200 MG/10 ML LIQUID. PO SCH ×2 (09:17→11:51)
[2016-10-19] MEDS: POTASSIUM CHLORIDE 20 MEQ/15 ML ORAL LIQUID. PEG SCH (09:18)
[2016-10-19] MEDS: LACTOBACILLUS ACIDOPH & BULGAR 1 TABLET. PO SCH (09:18)
[2016-10-19] MEDS: NYSTATIN 100,000 UNITS/ML 5 ML ORAL.SUSP. SWSW SCH ×2 (09:18→11:51)
[2016-10-19] MEDS: PANTOPRAZOLE IV PUSH 40 MG VIAL. IVP SCH (09:19)
[2016-10-19] MEDS: METOPROLOL TART IMMED RELEASE 25 MG TABLET PO SCH (09:20)
[2016-10-19] MEDS: FINASTERIDE 5 MG TABLET PO SCH (09:20)
[2016-10-19] MEDS: NYSTATIN TOPICAL POWDER 15GM BOTTLE. TP SCH (09:21)
[2016-10-19] MEDS: UREA 40% TOPICAL CREAM 28.3GM TUBE. TP SCH (09:21)
[2016-10-19] MEDS: FUROSEMIDE 40 MG TABLET PO SCH (09:21)
[2016-10-19] MEDS: DIGOXIN 125 MCG TABLET PO SCH (09:21)
--- NOTE | 2016-10-19 09:43 | PDOC ---
PROGRESS NOTES Subjective Subjective No complaints. Objective Objective Vital Signs Date Time Temp Pulse Resp B/P Pulse Ox O2 Delivery O2 Flow Rate FiO2 10/19/16 09:21 71 167/64 10/19/16 08:27 Nasal Cannula 2.0 10/19/16 07:37 98.0 22 93 98.0 Intake and Output 10/19/16 07:00 Intake Total 2750 ml Output Total 650 ml Balance 2100 ml Intake Oral 75 ml IV Total 80 ml Tube Feeding 1445 ml Blood Product IV Normal Saline Flush 530 ml Other 620 ml Output Urine Total 650 ml # Bowel Movements 3 Physical Exam Physical Exam He is alert and moves all 4 extremities to commands without any discomfort. Assessment Assessment Problems Medical Problems: (1) Altered mental status Status: Acute (2) Gouty arthropathy, chronic, with tophi Status: Acute (3) Hospital acquired PNA Status: Acute Plan Plan of Care To get him up as tolerated. Comment Review of Relevant I have reviewed the following items cassidy (where applicable) has been applied. Labs Laboratory Tests Test 10/17/16 15:10 10/18/16 06:15 10/18/16 15:05 10/19/16 04:50 Potassium Level 3.2mmol/L (3.5-5.1) 3.8mmol/L (3.5-5.1) 3.9mmol/L (3.5-5.1) White Blood Count 13.1x10^3/uL (4.0-11.0) 12.9x10^3/uL (4.0-11.0) Red Blood Count 2.34x10^6/uL (4.30-5.70) 2.62x10^6/uL (4.30-5.70) Hemoglobin 6.8g/dL (13.0-17.5) 7.8g/dL (13.0-17.5) 7.7g/dL (13.0-17.5) Hematocrit 21.0% (39.0-53.0) 24.0% (39.0-53.0) 23.9% (39.0-53.0) Mean Corpuscular Volume 90fL (79-100) 91fL (79-100) Mean Corpuscular Hemoglobin 29pg (25-35) 29pg (25-35) Mean Corpuscular Hemoglobin Concent 32g/dL (31-37) 32g/dL (31-37) Red Cell Distribution Width 15.7% (11.5-14.5) 16.0% (11.5-14.5) Platelet Count 319x10^3/uL (140-400) 300x10^3/uL (140-400) Neutrophils (%) (Auto) 65% (31-73) 65% (31-73) Lymphocytes (%) (Auto) 12% (24-48) 11% (24-48) Monocytes (%) (Auto) 7% (0-9) 7% (0-9) Eosinophils (%) (Auto) 15% (0-3) 17% (0-3) Basophils (%) (Auto) 1% (0-3) 0% (0-3) Neutrophils # (Auto) 8.6x10^3uL (1.8-7.7) 8.4x10^3uL (1.8-7.7) Lymphocytes # (Auto) 1.6x10^3/uL (1.0-4.8) 1.4x10^3/uL (1.0-4.8) Monocytes # (Auto) 0.9x10^3/uL (0.0-1.1) 0.9x10^3/uL (0.0-1.1) Eosinophils # (Auto) 1.9x10^3/uL (0.0-0.7) 2.2x10^3/uL (0.0-0.7) Basophils # (Auto) 0.1x10^3/uL (0.0-0.2) 0.0x10^3/uL (0.0-0.2) Sodium Level 151mmol/L (136-145) 148mmol/L (136-145) Chloride Level 114mmol/L (98-107) 110mmol/L (98-107) Carbon Dioxide Level 32mmol/L (21-32) 34mmol/L (21-32) Anion Gap 5 (6-14) 4 (6-14) Blood Urea Nitrogen 24mg/dL (8-26) 23mg/dL (8-26) Creatinine 1.1mg/dL (0.7-1.3) 1.0mg/dL (0.7-1.3) Estimated GFR (Cockcroft-Gault) 65.3 72.8 Glucose Level 120mg/dL (70-99) 118mg/dL (70-99) Calcium Level 8.1mg/dL (8.5-10.1) 8.0mg/dL (8.5-10.1) Segmented Neutrophils % 52% (35-66) Band Neutrophils % 8% (0-9) Lymphocytes % 9% (24-48) Atypical Lymphocytes % (Manual) 1% (0-0) Monocytes % 10% (0-10) Eosinophils % 18% (0-5) Metamyelocytes % 1% (0-0) Myelocytes % 1% (0-0) Platelet Estimate Adequate (ADEQUATE) Hypochromasia Present Anisocytosis Slight Laboratory Tests Test 10/18/16 15:05 10/19/16 04:50 Hemoglobin 7.8g/dL (13.0-17.5) 7.7g/dL (13.0-17.5) Hematocrit 24.0% (39.0-53.0) 23.9% (39.0-53.0) White Blood Count 12.9x10^3/uL (4.0-11.0) Red Blood Count 2.62x10^6/uL (4.30-5.70) Mean Corpuscular Volume 91fL (79-100) Mean Corpuscular Hemoglobin 29pg (25-35) Mean Corpuscular Hemoglobin Concent 32g/dL (31-37) Red Cell Distribution Width 16.0% (11.5-14.5) Platelet Count 300x10^3/uL (140-400) Neutrophils (%) (Auto) 65% (31-73) Lymphocytes (%) (Auto) 11% (24-48) Monocytes (%) (Auto) 7% (0-9) Eosinophils (%) (Auto) 17% (0-3) Basophils (%) (Auto) 0% (0-3) Neutrophils # (Auto) 8.4x10^3uL (1.8-7.7) Lymphocytes # (Auto) 1.4x10^3/uL (1.0-4.8) Monocytes # (Auto) 0.9x10^3/uL (0.0-1.1) Eosinophils # (Auto) 2.2x10^3/uL (0.0-0.7) Basophils # (Auto) 0.0x10^3/uL (0.0-0.2) Segmented Neutrophils % 52% (35-66) Band Neutrophils % 8% (0-9) Lymphocytes % 9% (24-48) Atypical Lymphocytes % (Manual) 1% (0-0) Monocytes % 10% (0-10) Eosinophils % 18% (0-5) Metamyelocytes % 1% (0-0) Myelocytes % 1% (0-0) Platelet Estimate Adequate (ADEQUATE) Hypochromasia Present Anisocytosis Slight Sodium Level 148mmol/L (136-145) Potassium Level 3.9mmol/L (3.5-5.1) Chloride Level 110mmol/L (98-107) Carbon Dioxide Level 34mmol/L (21-32) Anion Gap 4 (6-14) Blood Urea Nitrogen 23mg/dL (8-26) Creatinine 1.0mg/dL (0.7-1.3) Estimated GFR (Cockcroft-Gault) 72.8 Glucose Level 118mg/dL (70-99) Calcium Level 8.0mg/dL (8.5-10.1) Microbiology 10/10/16 Blood Culture - Final, Complete NO GROWTH AFTER 5 DAYS 10/05/16 Urine Culture - Final, Complete 10/05/16 Urine Culture Result 1 (JABARI) - Final, Complete 10/13/16 AFB Specimen Processing Tissue - Final, Resulted 10/13/16 Acid Fast Bacilli Culture, Resulted Pending 10/13/16 Gram Stain - Final, Resulted 10/13/16 Fungal Culture, Resulted Pending 10/13/16 Fungal Culture Result 1, Resulted Pending Medications Current Medications Albuterol/ Ipratropium (Duoneb) 3 ml 1X ONCE NEB Last administered on t 22:21; Start 10/05/16 at 22:15; Stop 10/05/16 at 22:50; Status DC Ondansetron HCl 4 mg 4 mg PRN Q8HRS PRN IV NAUSEA/VOMITING; Start 10/05/16 at 23 :00; Stop 10/06/16 at 22:59; Status DC Sodium Chloride (Iv Sodium Chloride 0.9% 1000ml Bag) 1,000 ml @ 100 mls/hr Q10H IV Last administered on 10/06/16 18:59; Start 10/05/16 at 22:59; Stop at 22:58; Status DC Albuterol/ Ipratropium 3 ml 3 ml RTQID NEB Last administered on 10/07/16 07:47 ; Start 10/06/16 at 08:00; Stop 10/07/16 at 07:59; Status DC Ceftriaxone Sodium 1 gm/ Sodium Chloride 50 ml @ 100 mls/hr Q24H IV ; Start 10/06/16 at 22:00; Stop 10/06/16 at 22:00; Status DC Levofloxacin/ Dextrose (LEVAQUIN 750mg PREMIX) 150 ml @ 100 mls/hr 1X ONCE IV Last administered on 10/06/16 01:05; Start 10/05/16 at 23:30; Stop 10/06/16 at 00:59; Status DC Vancomycin HCl 1 each 1 each PRN DAILY PRN MC SEE COMMENTS Last administered on 10/07/16 14:14; Start 10/05/16 at 23:00; Stop 10/08/16 at 18:52; Status DC Ceftriaxone Sodium 50 ml @ 100 mls/hr 1X ONCE IV Last administered on 01:05; Start 10/05/16 at 23:30; Stop 10/05/16 at 23:59; Status DC Vancomycin HCl 2 gm/Sodium Chloride 500 ml @ 250 mls/hr 1X ONCE IV Last administered on 10/05/16 23:26; Start 10/06/16 at 00:00; Stop 10/06/16 at 01:59; Status DC Vancomycin HCl/ Sodium Chloride (Iv Sodium Chloride 0.9% 250ml) 250 ml @ 167 mls/hr Q12H IV Last administered on 10/08/16 13:20; Start 10/06/16 at 12:00; Stop 10/08/16 at 18:52; Status DC Vancomycin HCl 1 each 1 each 1X ONCE MC ; Start 10/07/16 at 11:30; Stop 10/07/16 at 11:31; Status DC Piperacillin Sod/ Tazobactam Sod/ Sodium Chloride (Zosyn/Iv Sodium Chloride 0.9 % 50ml) 50 ml @ 100 mls/hr Q6HRS IV Last administered on 10/06/16 11:56; Start 10/06/16 at 11:00; Stop 10/06/16 at 15:24; Status DC Piperacillin Sod/ Tazobactam Sod (Zosyn Per Pharmacy) 1 each PRN DAILY PRN MC SEE COMMENTS; Start 10/06/16 at 10:15; Stop 10/15/16 at 13:06; Status DC Aspirin (Ecotrin) 81 mg DAILY PO ; Start 10/06/16 at 11:30; Stop 10/06/16 at 11:30 ; Status DC Bisacodyl (Dulcolax Supp) 10 mg PRN DAILY PRN RC CONSTIPATION; Start 10/06/16 at 10:15 Furosemide (Lasix) 40 mg DAILY PO Last administered on 10/19/16 09:21; Start 10/06/16 at 11:30 Guaifenesin (Mucinex) 600 mg BID PO ; Start 10/06/16 at 11:30; Stop 10/06/16 at 11 :30; Status DC Potassium Chloride (KCl Oral Soln) 10 meq DAILY PEG Last administered on 09:18; Start 10/06/16 at 11:30 Simvastatin (Zocor) 20 mg QHS PO Last administered on 10/18/16 21:19; Start at 21:00 Tamsulosin HCl (Flomax) 0.4 mg DAILY PO Last administered on 10/07/16 08:58; Start 10/06/16 at 11:30; Stop 10/08/16 at 10:18; Status DC Multivitamins/ Minerals (Ocuvite Lutein) 1 cap DAILY PO Last administered on 08:39; Start 10/06/16 at 11:00 Artificial Tears (Artificial Tears) 1 drop PRN BID PRN OU DRY EYE Last administered on 10/17/16 08:38; Start 10/06/16 at 10:30 Aspirin (Children'S Aspirin) 81 mg DAILYWBKFT PO Last administered on 10/08/16 09:00; Start 10/06/16 at 11:30; Stop 10/08/16 at 11:31; Status DC Guaifenesin (Robitussin) 200 mg QID PO Last administered on 10/19/16 09:17; Start 10/06/16 at 11:30 Furosemide (Lasix) 40 mg 1X ONCE IVP Last administered on 10/06/16 12:01; Start 10/06/16 at 12:00; Stop 10/06/16 at 12:01; Status DC Acetaminophen (Tylenol) 650 mg PRN Q6HRS PRN PEG MILD PAIN / TEMP Last administered on 10/18/16 10:47; Start 10/06/16 at 12:15 Ondansetron HCl (Zofran) 4 mg PRN Q6HRS PRN IV NAUSEA/VOMITING; Start 10/06/16 at 12:15 Enoxaparin Sodium (Lovenox 40mg Syringe) 40 mg Q24H SQ Last administered on 14:43; Start 10/06/16 at 13:00; Stop 10/16/16 at 17:07; Status DC Nystatin 1 alejandro 1 alejandro BID TP Last administered on 10/19/16 09:21; Start at 14:30 Piperacillin Sod/ Tazobactam Sod/ Sodium Chloride (Zosyn/Iv Sodium Chloride 0.9 % 100ml) 100 ml @ 200 mls/hr Q6HRS IV Last administered on 10/16/16 06:30; Start 10/06/16 at 18:00; Stop 10/16/16 at 07:59; Status DC Meloxicam (Mobic) 7.5 mg DAILY PO Last administered on 10/16/16 08:48; Start 10/07/16 at 10:00; Stop 10/16/16 at 17:07; Status DC Acetaminophen/ Hydrocodone Bitart (Lortab 5/325) 1 tab PRN Q4HRS PRN PO MODERATE - SEVERE PAIN Last administered on 10/18/16 21:23; Start 10/07/16 at 10 :45 Furosemide (Lasix) 20 mg 1X ONCE IVP Last administered on 10/07/16 18:24; Start 10/07/16 at 12:00; Stop 10/07/16 at 12:01; Status DC Digoxin 500 mcg 500 mcg 1X ONCE IV Last administered on 10/07/16 22:38; Start 10/07/16 at 22:15; Stop 10/07/16 at 22:17; Status DC Micafungin Sodium/ Dextrose (Mycamine) 100 ml @ 100 mls/hr Q24H IV Last administered on 10/17/16 10:02; Start 10/08/16 at 09:00; Stop 10/17/16 at 13:22 ; Status DC Iohexol (Omnipaque 240 Mg/ml) 30 ml 1X ONCE PO Last administered on 10/08/16 11:47; Start 10/08/16 at 09:15; Stop 10/08/16 at 09:18; Status DC Iohexol (Omnipaque 300 Mg/ml) 75 ml 1X ONCE IV Last administered on 10/08/16 11:46; Start 10/08/16 at 09:15; Stop 10/08/16 at 09:18; Status DC Finasteride (Proscar) 5 mg DAILY PO Last administered on 10/19/16 09:20; Start 10/09/16 at 09:00 Methylprednisolone Acetate (Depo-Medrol 40mg Vial) 40 mg 1X ONCE IM ; Start 10/08/16 at 10:45; Stop 10/08/16 at 10:53; Status DC Methylprednisolone Acetate (Depo-Medrol 40mg Vial) 40 mg 1X ONCE IM ; Start 10/08/16 at 10:45; Stop 10/08/16 at 10:53; Status DC Bupivacaine HCl (Sensorcaine-Mpf 0.25%) 10 ml 1X ONCE IJ ; Start 10/08/16 at 10: 45; Stop 10/08/16 at 10:53; Status DC Digoxin (Lanoxin) 125 mcg DAILY PO Last administered on 10/19/16 09:21; Start 10/08/16 at 11:30 Aspirin (Children'S Aspirin) 325 mg DAILYWBKFT PO Last administered on 12:38; Start 10/08/16 at 11:30; Stop 10/08/16 at 13:30; Status DC Lactobacillus Acidophilus (Bacid, Danielle-Bid) 1 tab DAILY PO Last administered on 10/19/16 09:18; Start 10/08/16 at 13:00 Aspirin (Children'S Aspirin) 324 mg DAILYWBKFT PO Last administered on 08:46; Start 10/08/16 at 13:30; Stop 10/16/16 at 17:07; Status DC Oxycodone/ Acetaminophen (Percocet 10/325) 1 tab PRN Q6HRS PRN PO PAIN Last administered on 10/15/16 20:11; Start 10/09/16 at 10:30 Furosemide (Lasix) 20 mg 1X ONCE IVP Last administered on 10/09/16 16:54; Start 10/09/16 at 15:00; Stop 10/09/16 at 15:01; Status DC Urea (Nebo Lo 40, X-Viate) 1 alejandro DAILY TP Last administered on 10/19/16 09:21; Start 10/09/16 at 18:00 Nystatin 5 ml 5 ml [id number] Last administered on 10/19/16 09:18; Start 06/18 at 13:00 Potassium Chloride (KCl Premix 10meq) 100 ml @ 100 mls/hr Q1H IV Last administered on 10/10/16 17:00; Start 10/10/16 at 14:00; Stop 10/10/16 at 17:59 ; Status DC Vancomycin HCl 1 each 1 each PRN DAILY PRN MC SEE COMMENTS Last administered on 10/17/16 11:32; Start 10/10/16 at 14:45; Stop 10/17/16 at 13:29; Status DC Vancomycin HCl 2 gm/Sodium Chloride 500 ml @ 250 mls/hr 1X ONCE IV Last administered on 10/10/16 15:30; Start 10/10/16 at 15:30; Stop 10/10/16 at 17:29 ; Status DC Vancomycin HCl/ Sodium Chloride (Iv Sodium Chloride 0.9% 250ml) 250 ml @ 167 mls/hr Q12H IV Last administered on 10/13/16 17:43; Start 10/11/16 at 05:00; Stop 10/14/16 at 05:57; Status DC Ondansetron HCl (Zofran) 4 mg PRN Q6HRS PRN IV Nausea; Start 10/13/16 at 12:30 ; Stop 10/14/16 at 12:29; Status DC Fentanyl Citrate (Fentanyl 2ml Vial) 25 mcg PRN Q5MIN PRN IV MILD PAIN; Start 10/13/16 at 12:30; Stop 10/14/16 at 12:29; Status DC Fentanyl Citrate (Fentanyl 2ml Vial) 50 mcg PRN Q5MIN PRN IV MODERATE PAIN; Start 10/13/16 at 12:30; Stop 10/14/16 at 12:29; Status DC Morphine Sulfate 1 mg 1 mg PRN Q10MIN PRN IV SEVERE PAIN; Start 10/13/16 at 12: 30; Stop 10/14/16 at 12:29; Status DC Lactated Ringer's (Iv Lactated Ringers) 1,000 ml @ 0 mls/hr Q0M IV ; Start at 12:23; Stop 10/14/16 at 00:22; Status DC Lidocaine HCl 2 ml 1X PRN PRN ID IV START; Start 10/13/16 at 12:30; Stop at 12:29; Status DC Hydromorphone HCl (Dilaudid) 0.5 mg PRN Q10MIN PRN IV SEV PAIN,Second choice; Start 10/13/16 at 12:30; Stop 10/14/16 at 12:29; Status DC Prochlorperazine Edisylate (Compazine) 5 mg PACU PRN PRN IV NAUSEA; Start 10/13 at 12:30; Stop 10/14/16 at 12:29; Status DC Vancomycin HCl 1 each 1 each 1X ONCE MC Last administered on 10/14/16t 05:09; Start 10/14/16 at 04:30; Stop 10/14/16 at 04:31; Status DC Propofol (Diprivan) 20 ml @ As Directed STK-MED ONCE IV ; Start 10/13/16 at 15: 07; Stop 10/13/16 at 15:08; Status DC Lidocaine HCl 5 ml 5 ml STK-MED ONCE .ROUTE ; Start 10/13/16 at 15:07; Stop at 15:08; Status DC Propofol (Diprivan) 20 ml @ As Directed STK-MED ONCE IV ; Start 10/13/16 at 18: 42; Stop 10/13/16 at 18:43; Status DC Lidocaine HCl 100 mg STK-MED ONCE .ROUTE ; Start 10/13/16 at 18:42; Stop at 18:43; Status DC Ondansetron HCl (Zofran) 4 mg STK-MED ONCE .ROUTE ; Start 10/13/16 at 19:16; Stop 10/13/16 at 19:17; Status DC Phenylephrine HCl 1 mg STK-MED ONCE IV ; Start 10/13/16 at 19:16; Stop 10/13/16 at 19:17; Status DC Sevoflurane (Ultane) 30 ml STK-MED ONCE IH ; Start 10/13/16 at 19:28; Stop 10/13 at 19:29; Status DC Dexamethasone Sodium Phosphate (Decadron) 20 mg STK-MED ONCE .ROUTE ; Start at 19:29; Stop 10/13/16 at 19:30; Status DC Albuterol/ Ipratropium (Duoneb) 3 ml 1X ONCE NEB Last administered on 03:45; Start 10/14/16 at 03:45; Stop 10/14/16 at 03:46; Status DC Furosemide 20 mg 20 mg 1X ONCE IVP Last administered on 10/14/16 05:26; Start 10/14/16 at 05:15; Stop 10/14/16 at 05:16; Status DC Vancomycin HCl/ Sodium Chloride (Iv Sodium Chloride 0.9% 250ml) 250 ml @ 250 mls/hr Q12H IV Last administered on 10/15/16 09:05; Start 10/14/16 at 06:00; Stop 10/15/16 at 22:33; Status DC Vancomycin HCl 1 each 1X ONCE MC Last administered on 10/15/16 21:30; Start 10/15/16 at 20:30; Stop 10/15/16 at 20:31; Status DC Furosemide (Lasix) 40 mg 1X ONCE IVP Last administered on 10/14/16 10:35; Start 10/14/16 at 10:30; Stop 10/14/16 at 10:31; Status DC Alteplase, Recombinant (Cathflo) 2 mg 1X ONCE INT CAT Last administered on 05:17; Start 10/15/16 at 05:30; Stop 10/15/16 at 05:31; Status DC Loperamide HCl (Imodium) 2 mg PRN Q4HRS PRN PEG DIARRHEA Last administered on 08:51; Start 10/15/16 at 14:30 Cyanocobalamin (Vitamin B-12) 1,000 mcg QTH IM Last administered on 10/15/16 18:17; Start 10/15/16 at 16:00 Pantoprazole Sodium (Protonix Vial) 40 mg DAILYAC IVP Last administered on 10/19 09:19; Start 10/15/16 at 19:15 Sucralfate 1 gm 1 gm Q6HRS PEG Last administered on 10/19/16 09:17; Start at 19:00 Vancomycin HCl/ Sodium Chloride (Iv Sodium Chloride 0.9% 250ml) 250 ml @ 250 mls/hr Q24H IV Last administered on 10/17/16 09:59; Start 10/16/16 at 09:00; Stop 10/17/16 at 13:22; Status DC Vancomycin HCl 1 each 1 each 1X ONCE MC ; Start 10/18/16 at 08:30; Stop at 08:31; Status Cancel Piperacillin Sod/ Tazobactam Sod/ Sodium Chloride (Zosyn/Iv Sodium Chloride 0.9 % 50ml) 50 ml @ 100 mls/hr Q6HRS IV Last administered on 10/19/16 05:45; Start 10/16/16 at 12:00; Stop 10/19/16 at 08:53; Status DC Albuterol/ Ipratropium (Duoneb) 3 ml RTQID NEB Last administered on 10/19/16 08:27; Start 10/16/16 at 08:30 Metoprolol Tartrate (Lopressor) 25 mg BID PO Last administered on 10/19/16 09: 20; Start 10/16/16 at 10:00 Hydralazine HCl (Apresoline) 10 mg PRN Q4HRS PRN IVP ELEVATED BP, SEE COMMENTS Last administered on 10/16/16 10:16; Start 10/16/16 at 10:00 Alteplase, Recombinant 2 mg 2 mg 1X ONCE INT CAT Last administered on 16:10; Start 10/16/16 at 13:45; Stop 10/16/16 at 13:46; Status DC Sodium Chloride (Iv Sodium Chloride 0.45%) 500 ml @ 0 mls/hr 1X ONCE IV Last administered on 10/16/16 17:58; Start 10/16/16 at 17:15; Stop 10/16/16 at 17:20 ; Status DC Potassium Chloride (KCl Oral Soln) 20 meq 1X ONCE PEG Last administered on 12:52; Start 10/17/16 at 13:00; Stop 10/17/16 at 13:01; Status DC Potassium Chloride (KCl Oral Soln) 20 meq 1X ONCE PEG Last administered on 17:18; Start 10/17/16 at 17:00; Stop 10/17/16 at 17:01; Status DC Active Scripts Active Reported Isopto Tears (Hypromellose) 15 Ml Drops 15 Ml OP Oxycodone Hcl 10 Mg Tablet 1 Tab PO QID Ocuvite Tablet (Vit A,C & E/Lutein/Minerals) 1 Each Tablet 1 Each PO Dulcolax (Bisacodyl) 10 Mg Supp.rect 10 Mg RC PRN DAILY PRN Milk Of Magnesia (Magnesium Hydroxide) 400 Mg/5 Ml Oral.susp 400 Mg PO Simvastatin 20 Mg Tablet 1 Tab PO QHS Refresh Optive Eye Drops (Carboxymethylcellulos/Glycerin) 15 Ml Drops 1 Drop EACHEYE BID Tamsulosin Hcl 0.4 Mg Cap.er.24h 1 Cap PO DAILY Potassium Chloride Oral Liquid (Potassium Chloride) 20 Meq/15 Ml Liquid 10 Meq PEG DAILY Aspir 81 (Aspirin) 81 Mg Tablet.dr 1 Tab PO DAILY Furosemide 40 Mg Tablet 1 Tab PO DAILY Meloxicam 7.5 Mg Tablet 1 Tab PO DAILY Trazodone Hcl 50 Mg Tablet 1 Tab PO QHS Mucinex (Guaifenesin) 600 Mg Tablet.er 600 Mg PO Vitals/I & O Vital Sign - Last 24 Hours 10/18/16 10/18/16 10/18/16 10/18/16 10:08 10:26 10:44 11:44 Temp 99.2 99.2 99.0 99.0 99.2 99.2 99.0 99.0 Pulse 69 71 74 64 Resp 22 22 20 20 B/P 162/69 162/69 169/64 161/66 Pulse Ox 95 O2 Delivery Nasal Cannula O2 Flow Rate 2.0 10/18/16 10/18/16 10/18/16 10/18/16 11:47 12:44 14:38 15:43 Temp 98.3 99.1 98.3 99.1 Pulse 60 76 Resp 20 B/P 168/83 162/68 O2 Delivery Nasal Cannula Nasal Cannula Nasal Cannula O2 Flow Rate 2.0 2.0 10/18/16 10/18/16 10/18/16 10/18/16 19:29 19:45 20:00 21:20 Temp 98.4 98.4 Pulse 79 79 Resp 22 B/P 153/56 153/56 Pulse Ox 92 O2 Delivery Nasal Cannula Nasal Cannula Nasal Cannula O2 Flow Rate 2.0 3.0 2.0 10/18/16 10/18/16 10/18/16 10/19/16 21:23 22:23 23:05 03:40 Temp 98.2 98.1 98.2 98.1 Pulse 80 78 Resp 22 22 B/P 158/64 156/60 Pulse Ox 92 92 92 93 O2 Delivery Nasal Cannula Nasal Cannula Nasal Cannula Nasal Cannula O2 Flow Rate 3.0 3.0 3.0 3.0 10/19/16 10/19/16 10/19/16 10/19/16 07:37 08:00 08:27 09:20 Temp 98.0 98.0 Pulse 58 65 Resp B/P 167/64 167/64 Pulse Ox 93 O2 Delivery Nasal Cannula Nasal Cannula Nasal Cannula O2 Flow Rate 3.0 2.0 2.0 10/19/16 09:21 Pulse 71 B/P 167/64 Intake and Output 10/18/16 10/18/16 10/19/16 15:00 23:00 07:00 Intake Total 630 ml 900 ml 1220 ml Output Total 650 ml Balance 630 ml 900 ml 570 ml RODRIGUE MAYNARD MD Oct 19, 2016 09:43
--- NOTE | 2016-10-19 09:58 | PDOC ---
Objective: Objective: Per RN - no further bleeding. Loose stool yesterday w/o blood. Possible DC today. Family present, possible SW meeting. Vital Signs: Vital Signs Date Time Temp Pulse Resp B/P Pulse Ox O2 Delivery O2 Flow Rate FiO2 10/19/16 09:21 71 167/64 10/19/16 08:27 Nasal Cannula 2.0 10/19/16 07:37 98.0 22 93 98.0 Labs: Laboratory Tests Test 10/18/16 15:05 10/19/16 04:50 Hemoglobin 7.8g/dL 7.7g/dL Hematocrit 24.0% 23.9% White Blood Count 12.9x10^3/uL Red Blood Count 2.62x10^6/uL Mean Corpuscular Volume 91fL Mean Corpuscular Hemoglobin 29pg Mean Corpuscular Hemoglobin Concent 32g/dL Red Cell Distribution Width 16.0% Platelet Count 300x10^3/uL Neutrophils (%) (Auto) 65% Lymphocytes (%) (Auto) 11% Monocytes (%) (Auto) 7% Eosinophils (%) (Auto) 17% Basophils (%) (Auto) 0% Neutrophils # (Auto) 8.4x10^3uL Lymphocytes # (Auto) 1.4x10^3/uL Monocytes # (Auto) 0.9x10^3/uL Eosinophils # (Auto) 2.2x10^3/uL Basophils # (Auto) 0.0x10^3/uL Segmented Neutrophils % 52% Band Neutrophils % 8% Lymphocytes % 9% Atypical Lymphocytes % (Manual) 1% Monocytes % 10% Eosinophils % 18% Metamyelocytes % 1% Myelocytes % 1% Platelet Estimate Adequate Hypochromasia Present Anisocytosis Slight Sodium Level 148mmol/L Potassium Level 3.9mmol/L Chloride Level 110mmol/L Carbon Dioxide Level 34mmol/L Anion Gap 4 Blood Urea Nitrogen 23mg/dL Creatinine 1.0mg/dL Estimated GFR (Cockcroft-Gault) 72.8 Glucose Level 118mg/dL Calcium Level 8.0mg/dL PE: GEN: NAD LUNGS: nasal cannula HEART: S1S2 ABD: NABS, S/ND/NT, PEG in place NEURO/PSYCH: awake, alert A/P: Oropharyngeal dysphagia s/p PEG replacement -tube functioning well, pt tolerating feedings Anemia -rectal bleeding resolved; loose stool yesterday per RN w/o blood -s/p transfusion 10/16 and 10/18 (2 units pRBCs total), Hgb stable in high 7s -on sucralfate, PPI, B12 -- Bleeding resolved w/ stable Hgb today. Possible DC/transfer today. Consider colonoscopy if bleeding resumes. RADHA LUNDBERG Oct 19, 2016 09:58
[2016-10-19 10:29] VITALS: BP 147/57
--- NOTE | 2016-10-19 10:58 | PDOC ---
PROGRESS NOTES Assessment Problems Medical Problems: (1) Altered mental status Status: Acute (2) Gouty arthropathy, chronic, with tophi Status: Acute (3) Hospital acquired PNA Status: Acute Metabolic encephalopathy. Dementia, S/p PEG replacement No evidence of acute CVA, MRI done 10/07 Plan Continue treatment of infection, medical diseases Will follow Discharge to [place] Subjective No complaints Objective Vital Signs Date Time Temp Pulse Resp B/P Pulse Ox O2 Delivery O2 Flow Rate FiO2 10/19/16 10:29 98.2 61 20 147/57 94 Nasal Cannula 3.0 98.2 Intake and Output 10/19/16 07:00 Intake Total 2750 ml Output Total 650 ml Balance 2100 ml Intake Oral 75 ml IV Total 80 ml Tube Feeding 1445 ml Blood Product IV Normal Saline Flush 530 ml Other 620 ml Output Urine Total 650 ml # Bowel Movements 3 PHYSICAL EXAM Tells me his name, follows a few commands PERRL. EOMI. CN: no focal findings. Muscle tone: normal. Muscle strength: not cooperative, moves all extremities DTR: 2+ Plantar reflex: flexor Gait: not examined in bed. Sensory exam: no abnormal findings. No cerebellar signs elicited. Review of Relevant I have reviewed the following items cassidy (where applicable) has been applied. Labs Laboratory Tests Test 10/17/16 15:10 10/18/16 06:15 10/18/16 15:05 10/19/16 04:50 Potassium Level 3.2mmol/L (3.5-5.1) 3.8mmol/L (3.5-5.1) 3.9mmol/L (3.5-5.1) White Blood Count 13.1x10^3/uL (4.0-11.0) 12.9x10^3/uL (4.0-11.0) Red Blood Count 2.34x10^6/uL (4.30-5.70) 2.62x10^6/uL (4.30-5.70) Hemoglobin 6.8g/dL (13.0-17.5) 7.8g/dL (13.0-17.5) 7.7g/dL (13.0-17.5) Hematocrit 21.0% (39.0-53.0) 24.0% (39.0-53.0) 23.9% (39.0-53.0) Mean Corpuscular Volume 90fL (79-100) 91fL (79-100) Mean Corpuscular Hemoglobin 29pg (25-35) 29pg (25-35) Mean Corpuscular Hemoglobin Concent 32g/dL (31-37) 32g/dL (31-37) Red Cell Distribution Width 15.7% (11.5-14.5) 16.0% (11.5-14.5) Platelet Count 319x10^3/uL (140-400) 300x10^3/uL (140-400) Neutrophils (%) (Auto) 65% (31-73) 65% (31-73) Lymphocytes (%) (Auto) 12% (24-48) 11% (24-48) Monocytes (%) (Auto) 7% (0-9) 7% (0-9) Eosinophils (%) (Auto) 15% (0-3) 17% (0-3) Basophils (%) (Auto) 1% (0-3) 0% (0-3) Neutrophils # (Auto) 8.6x10^3uL (1.8-7.7) 8.4x10^3uL (1.8-7.7) Lymphocytes # (Auto) 1.6x10^3/uL (1.0-4.8) 1.4x10^3/uL (1.0-4.8) Monocytes # (Auto) 0.9x10^3/uL (0.0-1.1) 0.9x10^3/uL (0.0-1.1) Eosinophils # (Auto) 1.9x10^3/uL (0.0-0.7) 2.2x10^3/uL (0.0-0.7) Basophils # (Auto) 0.1x10^3/uL (0.0-0.2) 0.0x10^3/uL (0.0-0.2) Sodium Level 151mmol/L (136-145) 148mmol/L (136-145) Chloride Level 114mmol/L (98-107) 110mmol/L (98-107) Carbon Dioxide Level 32mmol/L (21-32) 34mmol/L (21-32) Anion Gap 5 (6-14) 4 (6-14) Blood Urea Nitrogen 24mg/dL (8-26) 23mg/dL (8-26) Creatinine 1.1mg/dL (0.7-1.3) 1.0mg/dL (0.7-1.3) Estimated GFR (Cockcroft-Gault) 65.3 72.8 Glucose Level 120mg/dL (70-99) 118mg/dL (70-99) Calcium Level 8.1mg/dL (8.5-10.1) 8.0mg/dL (8.5-10.1) Segmented Neutrophils % 52% (35-66) Band Neutrophils % 8% (0-9) Lymphocytes % 9% (24-48) Atypical Lymphocytes % (Manual) 1% (0-0) Monocytes % 10% (0-10) Eosinophils % 18% (0-5) Metamyelocytes % 1% (0-0) Myelocytes % 1% (0-0) Platelet Estimate Adequate (ADEQUATE) Hypochromasia Present Anisocytosis Slight Laboratory Tests Test 10/18/16 15:05 10/19/16 04:50 Hemoglobin 7.8g/dL (13.0-17.5) 7.7g/dL (13.0-17.5) Hematocrit 24.0% (39.0-53.0) 23.9% (39.0-53.0) White Blood Count 12.9x10^3/uL (4.0-11.0) Red Blood Count 2.62x10^6/uL (4.30-5.70) Mean Corpuscular Volume 91fL (79-100) Mean Corpuscular Hemoglobin 29pg (25-35) Mean Corpuscular Hemoglobin Concent 32g/dL (31-37) Red Cell Distribution Width 16.0% (11.5-14.5) Platelet Count 300x10^3/uL (140-400) Neutrophils (%) (Auto) 65% (31-73) Lymphocytes (%) (Auto) 11% (24-48) Monocytes (%) (Auto) 7% (0-9) Eosinophils (%) (Auto) 17% (0-3) Basophils (%) (Auto) 0% (0-3) Neutrophils # (Auto) 8.4x10^3uL (1.8-7.7) Lymphocytes # (Auto) 1.4x10^3/uL (1.0-4.8) Monocytes # (Auto) 0.9x10^3/uL (0.0-1.1) Eosinophils # (Auto) 2.2x10^3/uL (0.0-0.7) Basophils # (Auto) 0.0x10^3/uL (0.0-0.2) Segmented Neutrophils % 52% (35-66) Band Neutrophils % 8% (0-9) Lymphocytes % 9% (24-48) Atypical Lymphocytes % (Manual) 1% (0-0) Monocytes % 10% (0-10) Eosinophils % 18% (0-5) Metamyelocytes % 1% (0-0) Myelocytes % 1% (0-0) Platelet Estimate Adequate (ADEQUATE) Hypochromasia Present Anisocytosis Slight Sodium Level 148mmol/L (136-145) Potassium Level 3.9mmol/L (3.5-5.1) Chloride Level 110mmol/L (98-107) Carbon Dioxide Level 34mmol/L (21-32) Anion Gap 4 (6-14) Blood Urea Nitrogen 23mg/dL (8-26) Creatinine 1.0mg/dL (0.7-1.3) Estimated GFR (Cockcroft-Gault) 72.8 Glucose Level 118mg/dL (70-99) Calcium Level 8.0mg/dL (8.5-10.1) Microbiology 10/10/16 Blood Culture - Final, Complete NO GROWTH AFTER 5 DAYS 10/05/16 Urine Culture - Final, Complete 10/05/16 Urine Culture Result 1 (JABARI) - Final, Complete 10/13/16 AFB Specimen Processing Tissue - Final, Resulted 10/13/16 Acid Fast Bacilli Culture, Resulted Pending 10/13/16 Gram Stain - Final, Resulted 10/13/16 Fungal Culture, Resulted Pending 10/13/16 Fungal Culture Result 1, Resulted Pending Medications Current Medications Albuterol/ Ipratropium (Duoneb) 3 ml 1X ONCE NEB Last administered on t 22:21; Start 10/05/16 at 22:15; Stop 10/05/16 at 22:50; Status DC Ondansetron HCl 4 mg 4 mg PRN Q8HRS PRN IV NAUSEA/VOMITING; Start 10/05/16 at 23 :00; Stop 10/06/16 at 22:59; Status DC Sodium Chloride (Iv Sodium Chloride 0.9% 1000ml Bag) 1,000 ml @ 100 mls/hr Q10H IV Last administered on 10/06/16 18:59; Start 10/05/16 at 22:59; Stop at 22:58; Status DC Albuterol/ Ipratropium 3 ml 3 ml RTQID NEB Last administered on 10/07/16 07:47 ; Start 10/06/16 at 08:00; Stop 10/07/16 at 07:59; Status DC Ceftriaxone Sodium 1 gm/ Sodium Chloride 50 ml @ 100 mls/hr Q24H IV ; Start 10/06/16 at 22:00; Stop 10/06/16 at 22:00; Status DC Levofloxacin/ Dextrose (LEVAQUIN 750mg PREMIX) 150 ml @ 100 mls/hr 1X ONCE IV Last administered on 10/06/16 01:05; Start 10/05/16 at 23:30; Stop 10/06/16 at 00:59; Status DC Vancomycin HCl 1 each 1 each PRN DAILY PRN MC SEE COMMENTS Last administered on 10/07/16 14:14; Start 10/05/16 at 23:00; Stop 10/08/16 at 18:52; Status DC Ceftriaxone Sodium 50 ml @ 100 mls/hr 1X ONCE IV Last administered on 01:05; Start 10/05/16 at 23:30; Stop 10/05/16 at 23:59; Status DC Vancomycin HCl 2 gm/Sodium Chloride 500 ml @ 250 mls/hr 1X ONCE IV Last administered on 10/05/16 23:26; Start 10/06/16 at 00:00; Stop 10/06/16 at 01:59; Status DC Vancomycin HCl/ Sodium Chloride (Iv Sodium Chloride 0.9% 250ml) 250 ml @ 167 mls/hr Q12H IV Last administered on 10/08/16 13:20; Start 10/06/16 at 12:00; Stop 10/08/16 at 18:52; Status DC Vancomycin HCl 1 each 1 each 1X ONCE MC ; Start 10/07/16 at 11:30; Stop 10/07/16 at 11:31; Status DC Piperacillin Sod/ Tazobactam Sod/ Sodium Chloride (Zosyn/Iv Sodium Chloride 0.9 % 50ml) 50 ml @ 100 mls/hr Q6HRS IV Last administered on 10/06/16 11:56; Start 10/06/16 at 11:00; Stop 10/06/16 at 15:24; Status DC Piperacillin Sod/ Tazobactam Sod (Zosyn Per Pharmacy) 1 each PRN DAILY PRN MC SEE COMMENTS; Start 10/06/16 at 10:15; Stop 10/15/16 at 13:06; Status DC Aspirin (Ecotrin) 81 mg DAILY PO ; Start 10/06/16 at 11:30; Stop 10/06/16 at 11:30 ; Status DC Bisacodyl (Dulcolax Supp) 10 mg PRN DAILY PRN RC CONSTIPATION; Start 10/06/16 at 10:15 Furosemide (Lasix) 40 mg DAILY PO Last administered on 10/19/16 09:21; Start 10/06/16 at 11:30 Guaifenesin (Mucinex) 600 mg BID PO ; Start 10/06/16 at 11:30; Stop 10/06/16 at 11 :30; Status DC Potassium Chloride (KCl Oral Soln) 10 meq DAILY PEG Last administered on 09:18; Start 10/06/16 at 11:30 Simvastatin (Zocor) 20 mg QHS PO Last administered on 10/18/16 21:19; Start at 21:00 Tamsulosin HCl (Flomax) 0.4 mg DAILY PO Last administered on 10/07/16 08:58; Start 10/06/16 at 11:30; Stop 10/08/16 at 10:18; Status DC Multivitamins/ Minerals (Ocuvite Lutein) 1 cap DAILY PO Last administered on 08:39; Start 10/06/16 at 11:00 Artificial Tears (Artificial Tears) 1 drop PRN BID PRN OU DRY EYE Last administered on 10/17/16 08:38; Start 10/06/16 at 10:30 Aspirin (Children'S Aspirin) 81 mg DAILYWBKFT PO Last administered on 10/08/16 09:00; Start 10/06/16 at 11:30; Stop 10/08/16 at 11:31; Status DC Guaifenesin (Robitussin) 200 mg QID PO Last administered on 10/19/16 09:17; Start 10/06/16 at 11:30 Furosemide (Lasix) 40 mg 1X ONCE IVP Last administered on 10/06/16 12:01; Start 10/06/16 at 12:00; Stop 10/06/16 at 12:01; Status DC Acetaminophen (Tylenol) 650 mg PRN Q6HRS PRN PEG MILD PAIN / TEMP Last administered on 10/18/16 10:47; Start 10/06/16 at 12:15 Ondansetron HCl (Zofran) 4 mg PRN Q6HRS PRN IV NAUSEA/VOMITING; Start 10/06/16 at 12:15 Enoxaparin Sodium (Lovenox 40mg Syringe) 40 mg Q24H SQ Last administered on 14:43; Start 10/06/16 at 13:00; Stop 10/16/16 at 17:07; Status DC Nystatin 1 alejandro 1 alejandro BID TP Last administered on 10/19/16 09:21; Start at 14:30 Piperacillin Sod/ Tazobactam Sod/ Sodium Chloride (Zosyn/Iv Sodium Chloride 0.9 % 100ml) 100 ml @ 200 mls/hr Q6HRS IV Last administered on 10/16/16 06:30; Start 10/06/16 at 18:00; Stop 10/16/16 at 07:59; Status DC Meloxicam (Mobic) 7.5 mg DAILY PO Last administered on 10/16/16 08:48; Start 10/07/16 at 10:00; Stop 10/16/16 at 17:07; Status DC Acetaminophen/ Hydrocodone Bitart (Lortab 5/325) 1 tab PRN Q4HRS PRN PO MODERATE - SEVERE PAIN Last administered on 10/18/16 21:23; Start 10/07/16 at 10 :45 Furosemide (Lasix) 20 mg 1X ONCE IVP Last administered on 10/07/16 18:24; Start 10/07/16 at 12:00; Stop 10/07/16 at 12:01; Status DC Digoxin 500 mcg 500 mcg 1X ONCE IV Last administered on 10/07/16 22:38; Start 10/07/16 at 22:15; Stop 10/07/16 at 22:17; Status DC Micafungin Sodium/ Dextrose (Mycamine) 100 ml @ 100 mls/hr Q24H IV Last administered on 10/17/16 10:02; Start 10/08/16 at 09:00; Stop 10/17/16 at 13:22 ; Status DC Iohexol (Omnipaque 240 Mg/ml) 30 ml 1X ONCE PO Last administered on 10/08/16 11:47; Start 10/08/16 at 09:15; Stop 10/08/16 at 09:18; Status DC Iohexol (Omnipaque 300 Mg/ml) 75 ml 1X ONCE IV Last administered on 10/08/16 11:46; Start 10/08/16 at 09:15; Stop 10/08/16 at 09:18; Status DC Finasteride (Proscar) 5 mg DAILY PO Last administered on 10/19/16 09:20; Start 10/09/16 at 09:00 Methylprednisolone Acetate (Depo-Medrol 40mg Vial) 40 mg 1X ONCE IM ; Start 10/08/16 at 10:45; Stop 10/08/16 at 10:53; Status DC Methylprednisolone Acetate (Depo-Medrol 40mg Vial) 40 mg 1X ONCE IM ; Start 10/08/16 at 10:45; Stop 10/08/16 at 10:53; Status DC Bupivacaine HCl (Sensorcaine-Mpf 0.25%) 10 ml 1X ONCE IJ ; Start 10/08/16 at 10: 45; Stop 10/08/16 at 10:53; Status DC Digoxin (Lanoxin) 125 mcg DAILY PO Last administered on 10/19/16 09:21; Start 10/08/16 at 11:30 Aspirin (Children'S Aspirin) 325 mg DAILYWBKFT PO Last administered on 12:38; Start 10/08/16 at 11:30; Stop 10/08/16 at 13:30; Status DC Lactobacillus Acidophilus (Bacid, Danielle-Bid) 1 tab DAILY PO Last administered on 10/19/16 09:18; Start 10/08/16 at 13:00 Aspirin (Children'S Aspirin) 324 mg DAILYWBKFT PO Last administered on 08:46; Start 10/08/16 at 13:30; Stop 10/16/16 at 17:07; Status DC Oxycodone/ Acetaminophen (Percocet 10/325) 1 tab PRN Q6HRS PRN PO PAIN Last administered on 10/15/16 20:11; Start 10/09/16 at 10:30 Furosemide (Lasix) 20 mg 1X ONCE IVP Last administered on 10/09/16 16:54; Start 10/09/16 at 15:00; Stop 10/09/16 at 15:01; Status DC Urea (Ritu Lo 40, X-Viate) 1 alejandro DAILY TP Last administered on 10/19/16 09:21; Start 10/09/16 at 18:00 Nystatin 5 ml 5 ml [id number] Last administered on 10/19/16 09:18; Start 06/18 at 13:00 Potassium Chloride (KCl Premix 10meq) 100 ml @ 100 mls/hr Q1H IV Last administered on 10/10/16 17:00; Start 10/10/16 at 14:00; Stop 10/10/16 at 17:59 ; Status DC Vancomycin HCl 1 each 1 each PRN DAILY PRN MC SEE COMMENTS Last administered on 10/17/16 11:32; Start 10/10/16 at 14:45; Stop 10/17/16 at 13:29; Status DC Vancomycin HCl 2 gm/Sodium Chloride 500 ml @ 250 mls/hr 1X ONCE IV Last administered on 10/10/16 15:30; Start 10/10/16 at 15:30; Stop 10/10/16 at 17:29 ; Status DC Vancomycin HCl/ Sodium Chloride (Iv Sodium Chloride 0.9% 250ml) 250 ml @ 167 mls/hr Q12H IV Last administered on 10/13/16 17:43; Start 10/11/16 at 05:00; Stop 10/14/16 at 05:57; Status DC Ondansetron HCl (Zofran) 4 mg PRN Q6HRS PRN IV Nausea; Start 10/13/16 at 12:30 ; Stop 10/14/16 at 12:29; Status DC Fentanyl Citrate (Fentanyl 2ml Vial) 25 mcg PRN Q5MIN PRN IV MILD PAIN; Start 10/13/16 at 12:30; Stop 10/14/16 at 12:29; Status DC Fentanyl Citrate (Fentanyl 2ml Vial) 50 mcg PRN Q5MIN PRN IV MODERATE PAIN; Start 10/13/16 at 12:30; Stop 10/14/16 at 12:29; Status DC Morphine Sulfate 1 mg 1 mg PRN Q10MIN PRN IV SEVERE PAIN; Start 10/13/16 at 12: 30; Stop 10/14/16 at 12:29; Status DC Lactated Ringer's (Iv Lactated Ringers) 1,000 ml @ 0 mls/hr Q0M IV ; Start at 12:23; Stop 10/14/16 at 00:22; Status DC Lidocaine HCl 2 ml 1X PRN PRN ID IV START; Start 10/13/16 at 12:30; Stop at 12:29; Status DC Hydromorphone HCl (Dilaudid) 0.5 mg PRN Q10MIN PRN IV SEV PAIN,Second choice; Start 10/13/16 at 12:30; Stop 10/14/16 at 12:29; Status DC Prochlorperazine Edisylate (Compazine) 5 mg PACU PRN PRN IV NAUSEA; Start 10/13 at 12:30; Stop 10/14/16 at 12:29; Status DC Vancomycin HCl 1 each 1 each 1X ONCE MC Last administered on 10/14/16t 05:09; Start 10/14/16 at 04:30; Stop 10/14/16 at 04:31; Status DC Propofol (Diprivan) 20 ml @ As Directed STK-MED ONCE IV ; Start 10/13/16 at 15: 07; Stop 10/13/16 at 15:08; Status DC Lidocaine HCl 5 ml 5 ml STK-MED ONCE .ROUTE ; Start 10/13/16 at 15:07; Stop at 15:08; Status DC Propofol (Diprivan) 20 ml @ As Directed STK-MED ONCE IV ; Start 10/13/16 at 18: 42; Stop 10/13/16 at 18:43; Status DC Lidocaine HCl 100 mg STK-MED ONCE .ROUTE ; Start 10/13/16 at 18:42; Stop at 18:43; Status DC Ondansetron HCl (Zofran) 4 mg STK-MED ONCE .ROUTE ; Start 10/13/16 at 19:16; Stop 10/13/16 at 19:17; Status DC Phenylephrine HCl 1 mg STK-MED ONCE IV ; Start 10/13/16 at 19:16; Stop 10/13/16 at 19:17; Status DC Sevoflurane (Ultane) 30 ml STK-MED ONCE IH ; Start 10/13/16 at 19:28; Stop 10/13 at 19:29; Status DC Dexamethasone Sodium Phosphate (Decadron) 20 mg STK-MED ONCE .ROUTE ; Start at 19:29; Stop 10/13/16 at 19:30; Status DC Albuterol/ Ipratropium (Duoneb) 3 ml 1X ONCE NEB Last administered on 03:45; Start 10/14/16 at 03:45; Stop 10/14/16 at 03:46; Status DC Furosemide 20 mg 20 mg 1X ONCE IVP Last administered on 10/14/16 05:26; Start 10/14/16 at 05:15; Stop 10/14/16 at 05:16; Status DC Vancomycin HCl/ Sodium Chloride (Iv Sodium Chloride 0.9% 250ml) 250 ml @ 250 mls/hr Q12H IV Last administered on 10/15/16 09:05; Start 10/14/16 at 06:00; Stop 10/15/16 at 22:33; Status DC Vancomycin HCl 1 each 1X ONCE MC Last administered on 10/15/16 21:30; Start 10/15/16 at 20:30; Stop 10/15/16 at 20:31; Status DC Furosemide (Lasix) 40 mg 1X ONCE IVP Last administered on 10/14/16 10:35; Start 10/14/16 at 10:30; Stop 10/14/16 at 10:31; Status DC Alteplase, Recombinant (Cathflo) 2 mg 1X ONCE INT CAT Last administered on 05:17; Start 10/15/16 at 05:30; Stop 10/15/16 at 05:31; Status DC Loperamide HCl (Imodium) 2 mg PRN Q4HRS PRN PEG DIARRHEA Last administered on 08:51; Start 10/15/16 at 14:30 Cyanocobalamin (Vitamin B-12) 1,000 mcg QTH IM Last administered on 10/15/16 18:17; Start 10/15/16 at 16:00 Pantoprazole Sodium (Protonix Vial) 40 mg DAILYAC IVP Last administered on 10/19 09:19; Start 10/15/16 at 19:15 Sucralfate 1 gm 1 gm Q6HRS PEG Last administered on 10/19/16 09:17; Start at 19:00 Vancomycin HCl/ Sodium Chloride (Iv Sodium Chloride 0.9% 250ml) 250 ml @ 250 mls/hr Q24H IV Last administered on 10/17/16 09:59; Start 10/16/16 at 09:00; Stop 10/17/16 at 13:22; Status DC Vancomycin HCl 1 each 1 each 1X ONCE MC ; Start 10/18/16 at 08:30; Stop at 08:31; Status Cancel Piperacillin Sod/ Tazobactam Sod/ Sodium Chloride (Zosyn/Iv Sodium Chloride 0.9 % 50ml) 50 ml @ 100 mls/hr Q6HRS IV Last administered on 10/19/16 05:45; Start 10/16/16 at 12:00; Stop 10/19/16 at 08:53; Status DC Albuterol/ Ipratropium (Duoneb) 3 ml RTQID NEB Last administered on 10/19/16 08:27; Start 10/16/16 at 08:30 Metoprolol Tartrate (Lopressor) 25 mg BID PO Last administered on 10/19/16 09: 20; Start 10/16/16 at 10:00 Hydralazine HCl (Apresoline) 10 mg PRN Q4HRS PRN IVP ELEVATED BP, SEE COMMENTS Last administered on 10/16/16 10:16; Start 10/16/16 at 10:00 Alteplase, Recombinant 2 mg 2 mg 1X ONCE INT CAT Last administered on 16:10; Start 10/16/16 at 13:45; Stop 10/16/16 at 13:46; Status DC Sodium Chloride (Iv Sodium Chloride 0.45%) 500 ml @ 0 mls/hr 1X ONCE IV Last administered on 10/16/16 17:58; Start 10/16/16 at 17:15; Stop 10/16/16 at 17:20 ; Status DC Potassium Chloride (KCl Oral Soln) 20 meq 1X ONCE PEG Last administered on 12:52; Start 10/17/16 at 13:00; Stop 10/17/16 at 13:01; Status DC Potassium Chloride (KCl Oral Soln) 20 meq 1X ONCE PEG Last administered on 17:18; Start 10/17/16 at 17:00; Stop 10/17/16 at 17:01; Status DC Active Scripts Active Reported Isopto Tears (Hypromellose) 15 Ml Drops 15 Ml OP Oxycodone Hcl 10 Mg Tablet 1 Tab PO QID Ocuvite Tablet (Vit A,C & E/Lutein/Minerals) 1 Each Tablet 1 Each PO Dulcolax (Bisacodyl) 10 Mg Supp.rect 10 Mg RC PRN DAILY PRN Milk Of Magnesia (Magnesium Hydroxide) 400 Mg/5 Ml Oral.susp 400 Mg PO Simvastatin 20 Mg Tablet 1 Tab PO QHS Refresh Optive Eye Drops (Carboxymethylcellulos/Glycerin) 15 Ml Drops 1 Drop EACHEYE BID Tamsulosin Hcl 0.4 Mg Cap.er.24h 1 Cap PO DAILY Potassium Chloride Oral Liquid (Potassium Chloride) 20 Meq/15 Ml Liquid 10 Meq PEG DAILY Aspir 81 (Aspirin) 81 Mg Tablet.dr 1 Tab PO DAILY Furosemide 40 Mg Tablet 1 Tab PO DAILY Meloxicam 7.5 Mg Tablet 1 Tab PO DAILY Trazodone Hcl 50 Mg Tablet 1 Tab PO QHS Mucinex (Guaifenesin) 600 Mg Tablet.er 600 Mg PO Vitals/I & O Vital Sign - Last 24 Hours 10/18/16 10/18/16 10/18/16 10/18/16 11:44 11:47 12:44 14:38 Temp 99.0 98.3 99.1 99.0 98.3 99.1 Pulse 64 60 76 Resp 20 20 B/P 161/66 168/83 162/68 O2 Delivery Nasal Cannula Nasal Cannula O2 Flow Rate 2.0 10/18/16 10/18/16 10/18/16 10/18/16 15:43 19:29 19:45 20:00 Temp 98.4 98.4 Pulse 79 Resp 22 B/P 153/56 Pulse Ox 92 O2 Delivery Nasal Cannula Nasal Cannula Nasal Cannula Nasal Cannula O2 Flow Rate 2.0 2.0 3.0 2.0 10/18/16 10/18/16 10/18/16 10/18/16 21:20 21:23 22:23 23:05 Temp 98.2 98.2 Pulse 79 80 Resp 22 20 22 B/P 153/56 158/64 Pulse Ox 92 92 92 O2 Delivery Nasal Cannula Nasal Cannula Nasal Cannula O2 Flow Rate 3.0 3.0 3.0 10/19/16 10/19/16 10/19/16 10/19/16 03:40 07:37 08:00 08:27 Temp 98.1 98.0 98.1 98.0 Pulse 78 58 Resp B/P 156/60 167/64 Pulse Ox 93 93 O2 Delivery Nasal Cannula Nasal Cannula Nasal Cannula Nasal Cannula O2 Flow Rate 3.0 3.0 2.0 2.0 10/19/16 10/19/16 10/19/16 09:20 09:21 10:29 Temp 98.2 98.2 Pulse 65 71 61 Resp 20 B/P 167/64 167/64 147/57 Pulse Ox 94 O2 Delivery Nasal Cannula O2 Flow Rate 3.0 Intake and Output 10/18/16 10/18/16 10/19/16 15:00 23:00 07:00 Intake Total 630 ml 900 ml 1220 ml Output Total 650 ml Balance 630 ml 900 ml 570 ml THELMA GUTIERREZ MD Oct 19, 2016 10:58
[2016-10-19] MEDS: MULTIVITAMIN EYE FORMULA CAPSULE. PO SCH (11:48)
--- NOTE | 2016-10-19 12:10 | PDOC ---
PULMONARY PROGRESS NOTES Subjective Pt not more soa Vitals Vital Signs Date Time Temp Pulse Resp B/P Pulse Ox O2 Delivery O2 Flow Rate FiO2 10/19/16 11:34 Nasal Cannula 2.0 10/19/16 10:29 98.2 61 20 147/57 94 98.2 General: Alert HEENT: Other (nc, at, perrl, nose clear) Lungs: Crackles Cardiovascular: S1, S2 Abdomen: Soft, Non-tender Neuro Exam: Alert Extremities: Other (1+edema) Skin: Warm Labs Laboratory Tests Test 10/17/16 15:10 10/18/16 06:15 10/18/16 15:05 10/19/16 04:50 Potassium Level 3.2mmol/L (3.5-5.1) 3.8mmol/L (3.5-5.1) 3.9mmol/L (3.5-5.1) White Blood Count 13.1x10^3/uL (4.0-11.0) 12.9x10^3/uL (4.0-11.0) Red Blood Count 2.34x10^6/uL (4.30-5.70) 2.62x10^6/uL (4.30-5.70) Hemoglobin 6.8g/dL (13.0-17.5) 7.8g/dL (13.0-17.5) 7.7g/dL (13.0-17.5) Hematocrit 21.0% (39.0-53.0) 24.0% (39.0-53.0) 23.9% (39.0-53.0) Mean Corpuscular Volume 90fL (79-100) 91fL (79-100) Mean Corpuscular Hemoglobin 29pg (25-35) 29pg (25-35) Mean Corpuscular Hemoglobin Concent 32g/dL (31-37) 32g/dL (31-37) Red Cell Distribution Width 15.7% (11.5-14.5) 16.0% (11.5-14.5) Platelet Count 319x10^3/uL (140-400) 300x10^3/uL (140-400) Neutrophils (%) (Auto) 65% (31-73) 65% (31-73) Lymphocytes (%) (Auto) 12% (24-48) 11% (24-48) Monocytes (%) (Auto) 7% (0-9) 7% (0-9) Eosinophils (%) (Auto) 15% (0-3) 17% (0-3) Basophils (%) (Auto) 1% (0-3) 0% (0-3) Neutrophils # (Auto) 8.6x10^3uL (1.8-7.7) 8.4x10^3uL (1.8-7.7) Lymphocytes # (Auto) 1.6x10^3/uL (1.0-4.8) 1.4x10^3/uL (1.0-4.8) Monocytes # (Auto) 0.9x10^3/uL (0.0-1.1) 0.9x10^3/uL (0.0-1.1) Eosinophils # (Auto) 1.9x10^3/uL (0.0-0.7) 2.2x10^3/uL (0.0-0.7) Basophils # (Auto) 0.1x10^3/uL (0.0-0.2) 0.0x10^3/uL (0.0-0.2) Sodium Level 151mmol/L (136-145) 148mmol/L (136-145) Chloride Level 114mmol/L (98-107) 110mmol/L (98-107) Carbon Dioxide Level 32mmol/L (21-32) 34mmol/L (21-32) Anion Gap 5 (6-14) 4 (6-14) Blood Urea Nitrogen 24mg/dL (8-26) 23mg/dL (8-26) Creatinine 1.1mg/dL (0.7-1.3) 1.0mg/dL (0.7-1.3) Estimated GFR (Cockcroft-Gault) 65.3 72.8 Glucose Level 120mg/dL (70-99) 118mg/dL (70-99) Calcium Level 8.1mg/dL (8.5-10.1) 8.0mg/dL (8.5-10.1) Segmented Neutrophils % 52% (35-66) Band Neutrophils % 8% (0-9) Lymphocytes % 9% (24-48) Atypical Lymphocytes % (Manual) 1% (0-0) Monocytes % 10% (0-10) Eosinophils % 18% (0-5) Metamyelocytes % 1% (0-0) Myelocytes % 1% (0-0) Platelet Estimate Adequate (ADEQUATE) Hypochromasia Present Anisocytosis Slight Laboratory Tests Test 10/18/16 15:05 10/19/16 04:50 Hemoglobin 7.8g/dL (13.0-17.5) 7.7g/dL (13.0-17.5) Hematocrit 24.0% (39.0-53.0) 23.9% (39.0-53.0) White Blood Count 12.9x10^3/uL (4.0-11.0) Red Blood Count 2.62x10^6/uL (4.30-5.70) Mean Corpuscular Volume 91fL (79-100) Mean Corpuscular Hemoglobin 29pg (25-35) Mean Corpuscular Hemoglobin Concent 32g/dL (31-37) Red Cell Distribution Width 16.0% (11.5-14.5) Platelet Count 300x10^3/uL (140-400) Neutrophils (%) (Auto) 65% (31-73) Lymphocytes (%) (Auto) 11% (24-48) Monocytes (%) (Auto) 7% (0-9) Eosinophils (%) (Auto) 17% (0-3) Basophils (%) (Auto) 0% (0-3) Neutrophils # (Auto) 8.4x10^3uL (1.8-7.7) Lymphocytes # (Auto) 1.4x10^3/uL (1.0-4.8) Monocytes # (Auto) 0.9x10^3/uL (0.0-1.1) Eosinophils # (Auto) 2.2x10^3/uL (0.0-0.7) Basophils # (Auto) 0.0x10^3/uL (0.0-0.2) Segmented Neutrophils % 52% (35-66) Band Neutrophils % 8% (0-9) Lymphocytes % 9% (24-48) Atypical Lymphocytes % (Manual) 1% (0-0) Monocytes % 10% (0-10) Eosinophils % 18% (0-5) Metamyelocytes % 1% (0-0) Myelocytes % 1% (0-0) Platelet Estimate Adequate (ADEQUATE) Hypochromasia Present Anisocytosis Slight Sodium Level 148mmol/L (136-145) Potassium Level 3.9mmol/L (3.5-5.1) Chloride Level 110mmol/L (98-107) Carbon Dioxide Level 34mmol/L (21-32) Anion Gap 4 (6-14) Blood Urea Nitrogen 23mg/dL (8-26) Creatinine 1.0mg/dL (0.7-1.3) Estimated GFR (Cockcroft-Gault) 72.8 Glucose Level 118mg/dL (70-99) Calcium Level 8.0mg/dL (8.5-10.1) Medications Active Scripts Medications Dose Route/Sig Days Date Category Isopto Tears (Hypromellose) 15 Ml Drops 15 Ml OP 10/06/16 Reported Oxycodone Hcl 10 Mg Tablet 1 Tab PO QID 10/06/16 Reported Ocuvite Tablet (Vit A,C & E/Lutein/Minerals) 1 Each Tablet 1 Each PO 10/06/16 Reported Dulcolax (Bisacodyl) 10 Mg Supp.rect 10 Mg RC PRN DAILY PRN 10/06/16 Reported Milk Of Magnesia (Magnesium Hydroxide) 400 Mg/5 Ml Oral.susp 400 Mg PO 10/06/16 Reported Simvastatin 20 Mg Tablet 1 Tab PO QHS 10/06/16 Reported Refresh Optive Eye Drops (Carboxymethylcellulos/Glycerin) 15 Ml Drops 1 Drop EACHEYE BID 10/06/16 Reported Tamsulosin Hcl 0.4 Mg Cap.er.24h 1 Cap PO DAILY 10/06/16 Reported Potassium Chloride Oral Liquid (Potassium Chloride) 20 Meq/15 Ml Liquid 10 Meq PEG DAILY 10/06/16 Reported Aspir 81 (Aspirin) 81 Mg Tablet.dr 1 Tab PO DAILY 10/06/16 Reported Furosemide 40 Mg Tablet 1 Tab PO DAILY 10/06/16 Reported Meloxicam 7.5 Mg Tablet 1 Tab PO DAILY 10/06/16 Reported Trazodone Hcl 50 Mg Tablet 1 Tab PO QHS 10/06/16 Reported Mucinex (Guaifenesin) 600 Mg Tablet.er 600 Mg PO 10/06/16 Reported Comments cxr reviewed, 1. Cardiomegaly with borderline vascular congestion. 2. Unchanged pleural fluid and atelectasis in the left base. 3. Resolving mild right basilar opacities. Impression . 1. Acute hypoxic respiratory failure, multifactorial on bipap 2. Questionable mild chronic obstructive pulmonary disease 3. Hyponatremia 4. Abnormal chest x-ray with mild cardiomegaly and volume loss, left lower lobe. 5. History of coronary artery disease. 6. History of chronic percutaneous endoscopic gastrostomy tube. He uses enteral nutrition as well as oral nutrition. 7. Leukocytosis,/ fever, improved Plan . OK TO TRANSFER ORDERS FOR BIPAP 21/03 rate 16 50% MOMO HUERTAS MD Oct 19, 2016 12:10
--- NOTE | 2016-10-19 13:26 | PDOC3 ---
Discharge Summary Visit Information Date of Admission: Oct 05, 2016 Date of Discharge: Oct 19, 2016 Admitting Diagnosis Comment: 1. Anemia: multifactorial, incl acute blood loss/GIB. s/p PRBC unit #2 2. Hematochezia: resolved. prob related to PEG placement. 3. Hypernatremia: in the background of peg 3. CHF: diastolic (hx EF 50%), acute on chronic: much improved clinically. 4. AMS: metabolic encephalopathy multifactorial 5. Dementia: 6. Afib w/ RVR: resolved, back in NSR. 7. Hx CAD with CAB. HTN: well controlled 9. HLD: on statin 10. 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 AAA: 4cm, stable 12. Dysphagia: PEG re-placement 10/[address] Hammond. 13. Diarrhea: resolved, c diff neg 14. Protein malnutrition: severe. on PEG feeds 15. L olecranon abscess/gouty tophus: s/p I&D on 10/[address] Calderon. 16. OA: on Mobic, hold w/ GIB 17. BPH: on sinclair Final Diagnosis Problems Medical Problems: (1) Altered mental status Status: Acute (2) Gouty arthropathy, chronic, with tophi Status: Acute (3) Hospital acquired PNA Status: Acute Brief Hospital Course Allergies Allergies Coded Allergies Type Severity Reaction Last Updated Verified allopurinol Allergy Intermediate 10/05/16 Yes colchicine Allergy Intermediate 10/05/16 Yes Vital Signs Vital Signs Date Time Temp Pulse Resp B/P Pulse Ox O2 Delivery O2 Flow Rate FiO2 10/19/16 11:34 Nasal Cannula 2.0 10/19/16 10:29 98.2 61 20 147/57 94 98.2 Lab Results Laboratory Tests Test 10/17/16 15:10 10/18/16 06:15 10/18/16 15:05 10/19/16 04:50 Potassium Level 3.2mmol/L (3.5-5.1) 3.8mmol/L (3.5-5.1) 3.9mmol/L (3.5-5.1) White Blood Count 13.1x10^3/uL (4.0-11.0) 12.9x10^3/uL (4.0-11.0) Red Blood Count 2.34x10^6/uL (4.30-5.70) 2.62x10^6/uL (4.30-5.70) Hemoglobin 6.8g/dL (13.0-17.5) 7.8g/dL (13.0-17.5) 7.7g/dL (13.0-17.5) Hematocrit 21.0% (39.0-53.0) 24.0% (39.0-53.0) 23.9% (39.0-53.0) Mean Corpuscular Volume 90fL (79-100) 91fL (79-100) Mean Corpuscular Hemoglobin 29pg (25-35) 29pg (25-35) Mean Corpuscular Hemoglobin Concent 32g/dL (31-37) 32g/dL (31-37) Red Cell Distribution Width 15.7% (11.5-14.5) 16.0% (11.5-14.5) Platelet Count 319x10^3/uL (140-400) 300x10^3/uL (140-400) Neutrophils (%) (Auto) 65% (31-73) 65% (31-73) Lymphocytes (%) (Auto) 12% (24-48) 11% (24-48) Monocytes (%) (Auto) 7% (0-9) 7% (0-9) Eosinophils (%) (Auto) 15% (0-3) 17% (0-3) Basophils (%) (Auto) 1% (0-3) 0% (0-3) Neutrophils # (Auto) 8.6x10^3uL (1.8-7.7) 8.4x10^3uL (1.8-7.7) Lymphocytes # (Auto) 1.6x10^3/uL (1.0-4.8) 1.4x10^3/uL (1.0-4.8) Monocytes # (Auto) 0.9x10^3/uL (0.0-1.1) 0.9x10^3/uL (0.0-1.1) Eosinophils # (Auto) 1.9x10^3/uL (0.0-0.7) 2.2x10^3/uL (0.0-0.7) Basophils # (Auto) 0.1x10^3/uL (0.0-0.2) 0.0x10^3/uL (0.0-0.2) Sodium Level 151mmol/L (136-145) 148mmol/L (136-145) Chloride Level 114mmol/L (98-107) 110mmol/L (98-107) Carbon Dioxide Level 32mmol/L (21-32) 34mmol/L (21-32) Anion Gap 5 (6-14) 4 (6-14) Blood Urea Nitrogen 24mg/dL (8-26) 23mg/dL (8-26) Creatinine 1.1mg/dL (0.7-1.3) 1.0mg/dL (0.7-1.3) Estimated GFR (Cockcroft-Gault) 65.3 72.8 Glucose Level 120mg/dL (70-99) 118mg/dL (70-99) Calcium Level 8.1mg/dL (8.5-10.1) 8.0mg/dL (8.5-10.1) Segmented Neutrophils % 52% (35-66) Band Neutrophils % 8% (0-9) Lymphocytes % 9% (24-48) Atypical Lymphocytes % (Manual) 1% (0-0) Monocytes % 10% (0-10) Eosinophils % 18% (0-5) Metamyelocytes % 1% (0-0) Myelocytes % 1% (0-0) Platelet Estimate Adequate (ADEQUATE) Hypochromasia Present Anisocytosis Slight Laboratory Tests Test 10/18/16 15:05 10/19/16 04:50 Hemoglobin 7.8g/dL (13.0-17.5) 7.7g/dL (13.0-17.5) Hematocrit 24.0% (39.0-53.0) 23.9% (39.0-53.0) White Blood Count 12.9x10^3/uL (4.0-11.0) Red Blood Count 2.62x10^6/uL (4.30-5.70) Mean Corpuscular Volume 91fL (79-100) Mean Corpuscular Hemoglobin 29pg (25-35) Mean Corpuscular Hemoglobin Concent 32g/dL (31-37) Red Cell Distribution Width 16.0% (11.5-14.5) Platelet Count 300x10^3/uL (140-400) Neutrophils (%) (Auto) 65% (31-73) Lymphocytes (%) (Auto) 11% (24-48) Monocytes (%) (Auto) 7% (0-9) Eosinophils (%) (Auto) 17% (0-3) Basophils (%) (Auto) 0% (0-3) Neutrophils # (Auto) 8.4x10^3uL (1.8-7.7) Lymphocytes # (Auto) 1.4x10^3/uL (1.0-4.8) Monocytes # (Auto) 0.9x10^3/uL (0.0-1.1) Eosinophils # (Auto) 2.2x10^3/uL (0.0-0.7) Basophils # (Auto) 0.0x10^3/uL (0.0-0.2) Segmented Neutrophils % 52% (35-66) Band Neutrophils % 8% (0-9) Lymphocytes % 9% (24-48) Atypical Lymphocytes % (Manual) 1% (0-0) Monocytes % 10% (0-10) Eosinophils % 18% (0-5) Metamyelocytes % 1% (0-0) Myelocytes % 1% (0-0) Platelet Estimate Adequate (ADEQUATE) Hypochromasia Present Anisocytosis Slight Sodium Level 148mmol/L (136-145) Potassium Level 3.9mmol/L (3.5-5.1) Chloride Level 110mmol/L (98-107) Carbon Dioxide Level 34mmol/L (21-32) Anion Gap 4 (6-14) Blood Urea Nitrogen 23mg/dL (8-26) Creatinine 1.0mg/dL (0.7-1.3) Estimated GFR (Cockcroft-Gault) 72.8 Glucose Level 118mg/dL (70-99) Calcium Level 8.0mg/dL (8.5-10.1) Brief Hospital Course Mr. Tate is a 76 old male admitted for PNA, encephalopathy, Remarkable mental status change unable to regain normal mentation, needing PEG, TF running fine. Family unrealistic, Full code, aggressive med tx,. MAr done Pt seen and examined, bed bound, non verbal. MAR done, to SNU with PEG and TF DispO; SNu Proc PEG Conults: GI, pulmo, etc Discharge Information Condition at Discharge: Stable Disposition/Orders: Other (SNU) Scheduled Aspirin (Aspir 81) 1 TAB PO DAILY (Reported) Carboxymethylcellulos/Glycerin (Refresh Optive Eye Drops) 1 DROP EACHEYE BID ( Reported) Furosemide (Furosemide) 1 TAB PO DAILY (Reported) Meloxicam (Meloxicam) 1 TAB PO DAILY (Reported) Oxycodone Hcl (Oxycodone Hcl) 1 TAB PO QID (Reported) Potassium Chloride (Potassium Chloride Oral Liquid) 10 MEQ PEG DAILY (Reported) Simvastatin (Simvastatin) 1 TAB PO QHS (Reported) Tamsulosin Hcl (Tamsulosin Hcl) 1 CAP PO DAILY (Reported) Trazodone Hcl (Trazodone Hcl) 1 TAB PO QHS (Reported) Scheduled PRN Bisacodyl (Dulcolax) 10 MG RC PRN DAILY PRN PRN CONSTIPATION (Reported) Miscellaneous Medications Guaifenesin (Mucinex) 600 MG PO (Reported) Hypromellose (Isopto Tears) 15 ML OP (Reported) Magnesium Hydroxide (Milk Of Magnesia) 400 MG PO (Reported) Vit A,C & E/Lutein/Minerals (Ocuvite Tablet) 1 EACH PO (Reported) TONE CORDOBA MD Oct 19, 2016 13:26
[2016-10-19 14:20] VITALS: BP 145/61
== END 2016-10-19 17:13 | DRG 871 ==
LOC: ER 21:44 → 5 NORTH 23:00 → 2 NORTH 10-13 22:30
PROVIDERS: ADMIT Internal Medicine; ATTEND Internal Medicine
PROC: 5A09357 Assistance with Respiratory Ventilation, Less than 24 Consecutive Hours, Continuous Positive Airway Pressure (ICD-10-PCS; 2016-10-06)
PROC: 0DH68UZ Insertion of Feeding Device into Stomach, Via Natural or Artificial Opening Endoscopic (ICD-10-PCS; principal; 2016-10-13 15:30)
PROC: 0H9EXZX Drainage of Left Lower Arm Skin, External Approach, Diagnostic (ICD-10-PCS; 2016-10-14)
PROC: 30233N1 Transfusion of Nonautologous Red Blood Cells into Peripheral Vein, Percutaneous Approach (ICD-10-PCS; 2016-10-18)
DX: A41.9 Sepsis, unspecified organism (principal); G93.41 Metabolic encephalopathy; J96.01 Acute respiratory failure with hypoxia; J18.9 Pneumonia, unspecified organism; E43 Unspecified severe protein-calorie malnutrition; J96.21 Acute and chronic respiratory failure with hypoxia; I50.33 Acute on chronic diastolic (congestive) heart failure; B37.49 Other urogenital candidiasis; D62 Acute posthemorrhagic anemia; E87.0 Hyperosmolality and hypernatremia; E87.1 Hypo-osmolality and hyponatremia; I47.1 Supraventricular tachycardia; J44.0 Chronic obstructive pulmonary disease with (acute) lower respiratory infection; J98.11 Atelectasis; K92.1 Melena; L02.414 Cutaneous abscess of left upper limb; R13.12 Dysphagia, oropharyngeal phase; K29.70 Gastritis, unspecified, without bleeding; E78.00 Pure hypercholesterolemia, unspecified; E78.5 Hyperlipidemia, unspecified; F03.90 Unspecified dementia, unspecified severity, without behavioral disturbance, psychotic disturbance, mood disturbance, and anxiety; G62.9 Polyneuropathy, unspecified; I25.10 Atherosclerotic heart disease of native coronary artery without angina pectoris; I48.0 Paroxysmal atrial fibrillation; I11.0 Hypertensive heart disease with heart failure; I71.4 Abdominal aortic aneurysm, without rupture; I73.9 Peripheral vascular disease, unspecified; I89.0 Lymphedema, not elsewhere classified; I95.1 Orthostatic hypotension; K40.90 Unilateral inguinal hernia, without obstruction or gangrene, not specified as recurrent; F41.9 Anxiety disorder, unspecified; M10.00 Idiopathic gout, unspecified site; M17.0 Bilateral primary osteoarthritis of knee; M70.20 Olecranon bursitis, unspecified elbow; N40.0 Benign prostatic hyperplasia without lower urinary tract symptoms; R29.6 Repeated falls; R47.02 Dysphasia; Z74.01 Bed confinement status; Z86.73 Personal history of transient ischemic attack (TIA), and cerebral infarction without residual deficits; Z87.01 Personal history of pneumonia (recurrent); Z87.891 Personal history of nicotine dependence; Z95.1 Presence of aortocoronary bypass graft; Z88.8 Allergy status to other drugs, medicaments and biological substances; Z68.26 Body mass index [BMI] 26.0-26.9, adult
CPT/HCPCS: 36415; 36600; 70450; 70551; 71010; 71260; 73070; 73221; 73610; 74177; 78278; 80048; 80053; 80202; 81001; 82274; 82550; 82607; 82805; 83605; 83735; 83880; 84100; 84132; 84145; 84443; 84484; 84550; 85007; 85014; 85018; 85027; 85610; 86850; 86900; 86901; 86920; 87040; 87071; 87075; 87086; 87102; 87116; 87205; 87324; 87641; 87804; 93005; 93306; 94640; 94660; 94760; 95816; 96374; 97004; A9560; C9113; J0360; J0690; J1100; J1160; J1650; J1940; J1956; J2248; J2370; J2405; J2543; J2704; J2997; J3370; J3420; J3480; J7030; J7040; J7050; J7620; P9016; Q9966; Q9967; 92610; 97110; 97116; 97530; 97535; 99285-25